=== PATIENT | male | born 1985 | race Two or more races ===

== ENCOUNTER 2019-05-03 16:40 | Inpatient (IN) | payer MEDICAID ==
[~2019-05-03] VITALS: Ht 167.6 cm; Wt 69.4 kg
--- NOTE | 2019-05-03 17:20 | NUR ---
BIBPA FROM SNF, SENT BY PMD DUE TO ABNORMAL ALB BUN ELEVATED 112. PATIENT A/OX1-2, BREATHING EVEN AND UNLABORED, NO SOB NOTED. GTUBE IN PLACED, CANNON CATH IN PLACED. WILL MONITOR.
[2019-05-03] MEDS ORDERED: IV NS 0.9% 1,000 ML BAG IV ONE (17:30)
--- NOTE | 2019-05-03 17:35 | NUR ---
IV LINE ESTABLISHED ON LEFT AC G20.
[2019-05-03] MEDS ORDERED: CRAN3875 GT (17:47)
[2019-05-03] MEDS ORDERED: DOCU100T2 GT (17:47)
[2019-05-03] MEDS ORDERED: MINO2.5T GT (17:47)
[2019-05-03] MEDS ORDERED: LOSA100T31 GT (17:47)
[2019-05-03] MEDS ORDERED: BISA10SU61 RC (17:47)
[2019-05-03] MEDS ORDERED: ACET-73 GT (17:47)
[2019-05-03] MEDS ORDERED: CLON0.3T GT (17:47)
[2019-05-03] MEDS ORDERED: DOXA8TAB79 GT (17:47)
[2019-05-03] MEDS ORDERED: METO-295 GT (17:47)
[2019-05-03] MEDS ORDERED: LEVE500T9 GT (17:47)
[2019-05-03] MEDS ORDERED: NA P133E RC (17:47)
[2019-05-03] MEDS ORDERED: FAMO20TA8 GT (17:47)
[2019-05-03] MEDS ORDERED: ACET500C4 GT (17:47)
[2019-05-03] MEDS ORDERED: HYDR-4076 GT (17:47)
[2019-05-03] MEDS ORDERED: LINA5TAB PO (17:47)
[2019-05-03] MEDS ORDERED: LABE300T2 GT (17:47)
[2019-05-03] MEDS ORDERED: AMLO10TA4 GT (17:47)
[2019-05-03] MEDS ORDERED: IPRA3AMP23 IH ×2 (17:47)
[2019-05-03] MEDS ORDERED: MAGN400O6 GT (17:47)
[2019-05-03] MEDS ORDERED: INSU100I14 SQ (17:47)
[2019-05-03] MEDS ORDERED: INSU100V7 SQ (17:48)
[2019-05-03] MEDS ORDERED: CHLO473M3 MM (17:48)
[2019-05-03] MEDS ORDERED: FURO-145 GT (17:49)
[2019-05-03 17:50] LABS: BASOPHILS % (AUTO) 0.5 % (0.0-2.0); HEMATOCRIT 29 % (39-51); HEMOGLOBIN 9.9 g/dL (13.5-17.5); LYMPHOCYTES # (AUTO) 0.9 /CMM (0.8-4.8); LYMPHOCYTES % (AUTO) 10.9 % (20.0-44.0); MEAN CORPUSCULAR HGB CONC 34 g/dl (31.0-36.0); MEAN CORPUSCULAR VOLUME 84 fL (80-96); MONOCYTES # (AUTO) 0.9 /CMM (0.1-1.30); NEUTROPHILS # (AUTO) 6.6 /CMM (1.8-8.9); NEUTROPHILS % (AUTO) 76.6 % (43.0-81.0); PLATELET COUNT (AUTO) 250 /CMM (150-450); RED BLOOD CELL COUNT(AUTO) 3.45 MIL/uL (4.5-6.0); WHITE BLOOD COUNT (AUTO) 8.7 K/uL (4.3-11.0)
--- NOTE | 2019-05-03 18:08 | NUR ---
CALLED ANNIE NEPHJAVON PAGED NURSE AIDE [employer] [place]
[2019-05-03 18:10] LABS: MAGNESIUM 3.5 mg/dL (1.8-2.4)
[2019-05-03 18:13] LABS: ALBUMIN 2.5 g/dL (3.4-5.0); BILIRUBIN,DIRECT 0.1 mg/dL (0.0-0.2); BILIRUBIN,TOTAL 0.4 mg/dL (0.2-1.0); CREATININE 7.2 mg/dL (0.6-1.3); POTASSIUM 5.1 mmol/L (3.5-5.1); TOTAL PROTEIN, SERUM 6.7 g/dL (6.4-8.2)
--- NOTE | 2019-05-03 18:19 | NUR ---
CALLED VIP SRAVANI DUTTON PAGED
--- NOTE | 2019-05-03 18:29 | NUR ---
TELE 319
--- NOTE | 2019-05-03 19:36 | NUR ---
PATIENT ENDORSED TO AUGIE FISCHER FOR SALLY.
--- NOTE | 2019-05-03 19:50 | NUR ---
GAVE REPORT TO KIMBERLI FISCHER FOR SALLY
--- NOTE | 2019-05-03 20:13 | NUR ---
PT BEING WHEELED TO 319 WITH EMT AT BEDSIDE. ACLS PROTOCOL
--- NOTE | 2019-05-03 20:15 | NUR ---
PRESSURE SUPERVISOR NOTE RECEIVED PT. PT STABLE RESTING IN BED. NO S/S OF RESP DISTRESS/SOB, PT W/ TRACH, O2 SAT WNL W/OUT O2 SUPPORT. DR. DUTTON NOTIFIED OF NEW ADM, ORDERS RECEIVED AND PLACED IN CHART VIA [employer]. TELE MONITOR PLACED, PT CURRENTLY SR 85-[address], PATENT, 300 ML OF OUTPUT IN BAG UPON RECEIPT OF PT. PT IS A/OX2. PT IS VERBAL, WITH PERIODS OF CONFUSION/USE OF INAPPROPRIATE/INCOMPREHENSIBLE WORDS. IV FLUIDS OF NS ORDERED WITH INFUSION RATE OF 75CC/HR PER MD ORDER THROUGH 20G LFA IV ACCESS. POC DISCUSSED WITH PT, HOWEVER FURTHER REINFORCEMENT IS NEEDED. SAFETY MEASURES IN PLACE, CALL LIGHT IN REACH. WILL CONT TO MONITOR.
[2019-05-03 20:25] VITALS: BP 127/62
[2019-05-03] MEDS ORDERED: Medication Not On Formulary EA (Acetaminophen 650 MG) GT PRN (22:00)
[2019-05-03] MEDS ORDERED: BISACODYL SUPP (10 MG) 10 MG/SUPP.RECT SUPP.RECT RC PRN (22:00)
[2019-05-03] MEDS ORDERED: NA PHOS,M-B/NA PHOS,DI-BA 1 EA ENEMA RC PRN (22:00)
[2019-05-03] MEDS ORDERED: MAGNESIUM HYDROXIDE 30 ML UDC GT PRN (22:00)
[2019-05-03] MEDS ORDERED: IV NS 0.9% 1,000 ML BAG IV PRN (23:30)
[2019-05-04] VITALS: BP 130/66
[2019-05-04 00:01] VITALS: BP 127/62
[2019-05-04] MEDS ORDERED: ACETAMINOPHEN 650 MG/20.3 ML UDC GT PRN (00:30)
[2019-05-04] MEDS ORDERED: DEXTROSE 50%-WATER 50 ML DISP.SYRIN IV PRN (01:30)
[2019-05-04 04:00] VITALS: BP 143/67
[2019-05-04] MEDS: LEVETIRACETAM SOL (5 ML) 100 MG/ML UDC GT SCH ×3 (04:51→21:08)
[2019-05-04] MEDS: METOCLOPRAMIDE HCL 10 MG TABLET GT SCH ×3 (04:53→21:09)
[2019-05-04] MEDS ORDERED: CLONIDINE HCL 0.1 MG TABLET GT SCH (05:00)
[2019-05-04] MEDS ORDERED: Medication Not On Formulary EA (Levetiracetam (Keppra) 500 MG) GT SCH (05:00)
[2019-05-04] MEDS: hydrALAZINE HCL 25 MG TABLET GT SCH ×3 (05:15→21:09)
--- NOTE | 2019-05-04 06:57 | NUR ---
rn closing note PT STABLE. NO S/S OF RESP DISTRESS SOB. ALL PT NEEDS ANTICIPATED AND MET. SAFETY MEASURES IN PLACE. CALL LIGHT IN REACH. WILL ENDORSE TO DAY SHIFT FOR SALLY.
[2019-05-04 08:00] VITALS: BP 137/64
[2019-05-04] MEDS ORDERED: IPRATROPIUM NEB FS 0.5 MG/2.5 ML AMPUL.NEB NEB PRN (08:00)
--- NOTE | 2019-05-04 08:00 | NUR ---
RN NOTES RECEIVED PATIENT ON THE BED BEDBOUND A/O X1, REDIRECTABLE. PATIENT ON TRACHEA UNCUFFED, TRACHEA SIZE #7 BREATHING SELF.PATIENT NPO. BS-149 MG/DL. PATIENT HAS A RIGHT SIDE WEAKNESS , EDEMA RIGHT ARM, AND RIGHT LEG, KEEP ELEVATED USING PILLOWS. PATIENT HAS A F/C INTACT DRAINING LIGHT YELLOW OUTPUT. INFUSING NS AT 75 ML/HR, ON LEFT FA INTACT,. PATIENT HAS A G-TUBE, PLACEMENT AND RESIDUAL CHECKED. MEDICATION ADMINISTERED VIA G-TUBE. ASSIST TURN AND REPOSTION Q 2 HR. CALL LIGHT WITHIN TO REACH, SAFETY PRECAUTION MAINTAINED ALL THE TIME.
[2019-05-04] MEDS: BLOOD SUGAR DIAGNOSTIC 1 EACH STRIP IN SCH ×4 (08:59→21:56)
[2019-05-04] MEDS ORDERED: Medication Not On Formulary EA (Docusate Sodium 100 MG) GT SCH (09:00)
[2019-05-04] MEDS: CHLORHEXIDINE GLUCONATE 15 ML UDC MM SCH (09:11)
[2019-05-04] MEDS: FAMOTIDINE (20 MG) 20 MG TABLET GT SCH (09:11)
[2019-05-04] MEDS: DOCUSATE SODIUM LIQ 100 MG/10 ML UDC GT SCH ×2 (09:11→21:08)
[2019-05-04] MEDS: LINAGLIPTIN 5 MG TABLET PO SCH (09:12)
[2019-05-04] MEDS: AMLODIPINE BESYLATE 10 MG TABLET GT SCH (09:12)
[2019-05-04] MEDS: IV NS 0.9% 1,000 ML IV PRN ×2 (09:13→12:00)
[2019-05-04] MEDS: ALBUTEROL FS 2.5 MG/0.5 ML VIAL.NEB NEB SCH ×3 (09:45→19:25)
[2019-05-04] MEDS: IPRATROPIUM NEB FS 0.5 MG/2.5 ML AMPUL.NEB NEB SCH ×3 (09:45→19:25)
[2019-05-04 10:00] LABS: BASOPHILS % (AUTO) 0.5 % (0.0-2.0); EOSINOPHILS % (AUTO) 1.5 % (0.0-6.0); HEMATOCRIT 27 % (39-51); HEMOGLOBIN 9.3 g/dL (13.5-17.5); LYMPHOCYTES % (AUTO) 10.2 % (20.0-44.0); MEAN CORPUSCULAR HGB CONC 34 g/dl (31.0-36.0); MEAN CORPUSCULAR VOLUME 83 fL (80-96); MONOCYTES % (AUTO) 10.1 % (2.0-12.0); NEUTROPHILS # (AUTO) 7.9 /CMM (1.8-8.9); NEUTROPHILS % (AUTO) 77.7 % (43.0-81.0); PLATELET COUNT (AUTO) 239 /CMM (150-450); RED BLOOD CELL COUNT(AUTO) 3.28 MIL/uL (4.5-6.0); WHITE BLOOD COUNT (AUTO) 10.1 K/uL (4.3-11.0)
--- NOTE | 2019-05-04 10:00 | NUR ---
RN NOTES SEEN PATIENT BT ST, PATIENT GOING TO HAVE A SWALLOW WITH VIDEO TOMORROW. SEEN PATIENT BY Dr VELEZ, PATIENT STILL NPO, INCREASED IV INFUSING ON 125 MG/HR. ASSIST TURN AND REPOSTION Q 2 HR. NEEDS ATTENDED AND ANTICIPATED, CALL LIGHT WITHIN TO REACH, CONTINUED MONITORING.
[2019-05-04 10:13] LABS: CREATININE 6.9 mg/dL (0.6-1.3); POTASSIUM 4.5 mmol/L (3.5-5.1)
--- NOTE | 2019-05-04 12:00 | NUR ---
RN NOTES BS-147 MG/DL, NO COVERAGE GIVEN, ADMINISTERED SCHEDULED MEDICATION VIA G-TUBE, CONTINUED MONITORING.
[2019-05-04] MEDS ORDERED: ALBUTEROL FS 2.5 MG/0.5 ML VIAL.NEB NEB PRN (13:30)
[2019-05-04 16:00] VITALS: BP_SYST 137; BP_SYST 149; BP_DIAS 64; BP_DIAS 73
--- NOTE | 2019-05-04 17:00 | NUR ---
RN NOTES BS-139 MG/DL, ADMINISTERED SCHEDULED MEDICATION, PATIENT HAS ANO ACUTE RESPIRATORY DISTRESS, V/S STABLE, ASSISTTURN AND REPOSTION Q 2 HR.
--- NOTE | 2019-05-04 18:30 | NUR ---
RN NOTES PATIENT STABLE, NO ACUTE RESPIRATORY DISTRESS, V/S STABLE. PATIENT STILL NPO, CALL LIGHT WITHIN TO REACH. ENDORSED ONCOMING NURSE FOR PLAN OF CARE.
[2019-05-04 20:00] VITALS: BP 148/64
--- NOTE | 2019-05-04 20:00 | NUR ---
MS CARLOS INITIAL NOTES SEEN PT IN BED WATCHING TV AT THIS, ALERT ORIENTED ASKING FOR FOOD , SPOKE TO HIM THAT HE.S NPO AT THIS TIME EXCEPT HIS MEDICATION BUT HE'S ON IVF. HE'S GOING FOR SWALLOW EVALUATION TOMORROW TO FIND OUT IF HE ABLE TO SWALLOW. PT STATED "OK". HE'S STILL HAVE TRACH PORTEX #7 THAT IS UNCUFFED. BREATHING EVEN AND UNLABORED, NOT IN ANY ACUTE DISTRESS NOTED. IVF NS AT 125 INFUSING AT THIS TIME ON HIS LEFT FOREARM. KEPT HIM WARM AND COMFORTABLE AT ALL TIMES. PLACE CALL LIGHT AT REACH. WILL CONTINUE MONITORING.
[2019-05-04] MEDS ORDERED: CLONIDINE HCL 0.1 MG TABLET ONE (21:52)
[2019-05-04] MEDS: CLONIDINE HCL 0.1 MG TABLET GT SCH (21:56)
--- NOTE | 2019-05-04 22:00 | NUR ---
ms transmission systems operator notes routine meds given and blood sugar checked done 120, no insulin coverages at this time. no signs of hypo glycemia noted. pt still with IVF NS at 125 ml/hr infusing. will continue monitoring. kept him warm and comfortable at all times. place call light at reach.
[2019-05-05] MEDS: ALBUTEROL FS 2.5 MG/0.5 ML VIAL.NEB NEB SCH ×4 (01:57→19:36)
[2019-05-05] MEDS: IPRATROPIUM NEB FS 0.5 MG/2.5 ML AMPUL.NEB NEB SCH ×4 (01:57→19:36)
[2019-05-05] MEDS: IV NS 0.9% 1,000 ML IV PRN ×3 (02:10→18:10)
--- NOTE | 2019-05-05 02:21 | NUR ---
ms anh notes pt resting comfortably in bed without any acute distress noted. Respiratory just done giving breathing tx. kept him comfortable at all times. will continue monitoring.
[2019-05-05] MEDS: LEVETIRACETAM SOL (5 ML) 100 MG/ML UDC GT SCH ×3 (06:05→20:57)
[2019-05-05] MEDS: hydrALAZINE HCL 25 MG TABLET GT SCH ×3 (06:06→20:57)
[2019-05-05] MEDS: METOCLOPRAMIDE HCL 10 MG TABLET GT SCH ×3 (06:06→20:57)
[2019-05-05] MEDS ORDERED: CLONIDINE HCL 0.1 MG TABLET ONE (06:22)
[2019-05-05] MEDS: BLOOD SUGAR DIAGNOSTIC 1 EACH STRIP IN SCH ×4 (06:30→21:59)
[2019-05-05] MEDS: CLONIDINE HCL 0.1 MG TABLET GT SCH ×3 (06:30→20:57)
--- NOTE | 2019-05-05 06:45 | NUR ---
ms anh notes routine resting comfortably in bed without any acute distress noted. routine meds given as ordered lemuel g-tube. no aspiration noted. blood sugar checked done 152. no insulin given at this time. pt still NPO . no signs of hyper glycemia noted. morning care done . kept him warm and comfortable at all times. will continue monitoring. place call light at reach.
--- NOTE | 2019-05-05 07:39 | NUR ---
ms central supply technician supervisor closing notes pt resting comfortably in bed without any acute distress noted. stable lemuel the night and slept well. respiration even and non-labored. all due meds given and all needs met. kept her warm and comfortable at all times. place call light at reach. endorse to am nurse Bennett for continuity of care.
[2019-05-05 07:57] LABS: BASOPHILS # (AUTO) 0.1 /CMM (0.0-0.2); BASOPHILS % (AUTO) 0.8 % (0.0-2.0); EOSINOPHILS % (AUTO) 1.8 % (0.0-6.0); HEMATOCRIT 26 % (39-51); LYMPHOCYTES # (AUTO) 0.9 /CMM (0.8-4.8); LYMPHOCYTES % (AUTO) 10.6 % (20.0-44.0); MEAN CORPUSCULAR HGB CONC 35 g/dl (31.0-36.0); MEAN CORPUSCULAR VOLUME 84 fL (80-96); MONOCYTES # (AUTO) 0.9 /CMM (0.1-1.30); MONOCYTES % (AUTO) 10.7 % (2.0-12.0); NEUTROPHILS # (AUTO) 6.7 /CMM (1.8-8.9); NEUTROPHILS % (AUTO) 76.1 % (43.0-81.0); PLATELET COUNT (AUTO) 260 /CMM (150-450); RED BLOOD CELL COUNT(AUTO) 3.12 MIL/uL (4.5-6.0); WHITE BLOOD COUNT (AUTO) 8.8 K/uL (4.3-11.0)
[2019-05-05 08:00] VITALS: BP 149/74
--- NOTE | 2019-05-05 08:00 | NUR ---
RN NOTES RECEIVED PATIENT IN THE BED SLEEPING AROUES WHEN CALLED NAME OR TOUCHED. NO ACUTE RESPIRATORY DISTRESS, NO SOB, UNLABORED. PATIENT HAS A TRACHEA UNCUFFED, ABLE TO BREATH SELF. G-TUBE INTACT RESIDUAL 50CC, ALSO CHECKED FOR PLACEMENT. F/C DRAIN FREELY YELLOW OUTPUT, V/S STABLE. ADMINISTERED SCHEDULED MEDICATION VIA G-TUBE. INFUSING NS AT 125 ML/HR ON LEFT FA INTACT. EDEMA BLE , AND RIGHT ARM ELEVATED USING PILLOWS, ASSIST PATIENT TURN AND REPOSTION Q 2 HR. CALL LIGHT WITHIN TO REACH, SAFETY PRECAUTION MAINTAINED ALL THE TIME.
[2019-05-05 08:11] LABS: CREATININE 5.3 mg/dL (0.6-1.3); PHOSPHORUS 5.6 mg/dL (2.5-4.9); POTASSIUM 4.2 mmol/L (3.5-5.1)
[2019-05-05] MEDS: CHLORHEXIDINE GLUCONATE 15 ML UDC MM SCH (09:10)
[2019-05-05] MEDS: DOCUSATE SODIUM LIQ 100 MG/10 ML UDC GT SCH ×2 (09:10→20:56)
[2019-05-05] MEDS: FAMOTIDINE (20 MG) 20 MG TABLET GT SCH (09:11)
[2019-05-05] MEDS: LINAGLIPTIN 5 MG TABLET PO SCH (09:11)
[2019-05-05] MEDS: AMLODIPINE BESYLATE 10 MG TABLET GT SCH (09:11)
--- NOTE | 2019-05-05 10:15 | NUR ---
RN NOTES PATIENT CAPACITOR INSPECTOR FOR AT THIS TIME FOR VIDEO SWALLOW TEST. PATIENT AWAKE STABLE, EDUCATED PATIENT FOR PROCEDURE.
[2019-05-05] MEDS ORDERED: BARIUM SULFATE 148 GM SUSP.RECON PO ONE (11:38)
[2019-05-05] MEDS ORDERED: BARIUM SULFATE 240 ML ORAL.SUSP PO ONE (11:38)
--- NOTE | 2019-05-05 13:00 | NUR ---
RN NOTES PATIENT EAT LUNCH BY ASSIST OF ABSEILING INSTRUCTOR 25%. PATIENT TOLERATED FOOD WELL, NO ASPIRATION PRECAUTION , KEEP HOB ELEVATED, ADMINISTERED SCHEDULED MEDICATION VIA G-TUBE. ASSIST TURN AND REPOSTION Q 2 HR.
[2019-05-05] MEDS: INSULIN REGULAR, HUMAN 100 UNIT/ML 3 ML VIAL SQ PRN ×3 (15:08→22:16)
[2019-05-05 16:00] VITALS: BP 151/71
--- NOTE | 2019-05-05 17:00 | NUR ---
RN NOTES BS-202 MG/DL COVERAGE GIVEN, PATIENT EAT DINNER 35 %, STABLE, REFUSED PAIN, INFUSING NS AT 125 MG/ML ON LEFT AC AREA INTACT, ASSIST TURN AND REPOSTION Q 2 HR. CONTINUED MONITORING.
--- NOTE | 2019-05-05 18:30 | NUR ---
RN NOTES PATIENT STABLE, NO ACUTE RESPIRATORY DISTRESS. CALL LIGHT WITHIN TO REACH. ENDORSED ONCOMING NURSE FOLLOW PLAN OF CARE.
--- NOTE | 2019-05-05 19:51 | NUR ---
ms anh initial notes received report from am nurse and seen pt in bed resting comfortably in bed without any acute distress noted. respiration even and non-labored, trach portex # 7 uncuffed. in room air at this time. pt denies any pain or any discomfort. Still with IVF of NS at 125 ml/hr infusing at this time. kept him warm and comfortable at all time. per am nurse g-tube feeding will start at 2200 then off at 0600 am as ordered. pt is aware. place call light at reach. will continue monitoring.
[2019-05-05 20:00] VITALS: BP 142/80
[2019-05-05] MEDS: NEPRO 1,000 ML BOTTLE GT PRN (21:58)
[2019-05-05] MEDS: TAMSULOSIN 0.4 MG CAP.SR.24H PO SCH (21:59)
--- NOTE | 2019-05-05 22:33 | NUR ---
ms anh notes routine meds given and blood sugar checked done 132, 2 units of insulin given lemuel sq as ordered. G-tube feeding started Nephro at 20ml/hr as ordered. kept him warm and comfortable at all times. will continue monitoring.
--- NOTE | 2019-05-06 | NUR ---
ms cabinetmaker apprentice notes pt asleep at this time. no signs of any acute distress noted. pt tolerated g-tube feeding well, no aspiration noted.
[2019-05-06] MEDS: IPRATROPIUM NEB FS 0.5 MG/2.5 ML AMPUL.NEB NEB SCH ×4 (02:19→20:17)
[2019-05-06] MEDS: ALBUTEROL FS 2.5 MG/0.5 ML VIAL.NEB NEB SCH ×4 (02:19→20:17)
--- NOTE | 2019-05-06 03:00 | NUR ---
supervisor loading notes pt asleep. no distress noted.
[2019-05-06] MEDS: LEVETIRACETAM SOL (5 ML) 100 MG/ML UDC GT SCH ×3 (05:19→20:58)
[2019-05-06] MEDS: METOCLOPRAMIDE HCL 10 MG TABLET GT SCH ×3 (05:20→20:57)
[2019-05-06] MEDS: hydrALAZINE HCL 25 MG TABLET GT SCH ×3 (05:20→20:57)
[2019-05-06] MEDS: CLONIDINE HCL 0.1 MG TABLET GT SCH ×2 (05:20→20:58)
[2019-05-06] MEDS: IV NS 0.9% 1,000 ML IV PRN ×2 (05:35→21:24)
[2019-05-06] MEDS: INSULIN REGULAR, HUMAN 100 UNIT/ML 3 ML VIAL SQ PRN ×4 (06:10→21:17)
--- NOTE | 2019-05-06 06:31 | NUR ---
ms anh notes bed bath rendered with the helped of TWISTING DEPARTMENT END FINDER then blood sugar checked done 142 , no signs of any hypo/hyperglycemia . 2 units of insulin given lemuel SQ as ordered. g-tube feeding hold for now as ordered. ivf NS at 125ml/hr infusing.
--- NOTE | 2019-05-06 07:02 | NUR ---
ms interior decorator closing notes pt awake and alert watching tv at this time, stable lemuel the night and slept well. all due meds given and all needs met. no signs of any acute distress noted at this time. alberts to gravity, g-tube feeding hold for now patent and intact. IVF NS at 125ml/hr still infusing. kept him warm and comfortable at all times. place call light at reach, will endorse to am nurse for continuity of care. place call light at reach.
[2019-05-06 07:27] LABS: BASOPHILS # (AUTO) 0.1 /CMM (0.0-0.2); BASOPHILS % (AUTO) 0.8 % (0.0-2.0); EOSINOPHILS % (AUTO) 2.6 % (0.0-6.0); HEMATOCRIT 30 % (39-51); LYMPHOCYTES # (AUTO) 1.1 /CMM (0.8-4.8); LYMPHOCYTES % (AUTO) 10.8 % (20.0-44.0); MEAN CORPUSCULAR HGB CONC 33 g/dl (31.0-36.0); MEAN CORPUSCULAR VOLUME 85 fL (80-96); MONOCYTES # (AUTO) 0.9 /CMM (0.1-1.30); NEUTROPHILS # (AUTO) 7.8 /CMM (1.8-8.9); NEUTROPHILS % (AUTO) 76.8 % (43.0-81.0); PLATELET COUNT (AUTO) 298 /CMM (150-450); RED BLOOD CELL COUNT(AUTO) 3.53 MIL/uL (4.5-6.0); WHITE BLOOD COUNT (AUTO) 10.1 K/uL (4.3-11.0)
[2019-05-06] MEDS: BLOOD SUGAR DIAGNOSTIC 1 EACH STRIP IN SCH ×4 (07:30→21:04)
--- NOTE | 2019-05-06 07:44 | NUR ---
m/s manager project: notes blood sugar taken earlier this morning.
[2019-05-06 08:00] VITALS: BP 162/80
--- NOTE | 2019-05-06 08:00 | NUR ---
m/s general scrap worker: notes resting comfortable. g-tube remains clamped. will continue to monitor. hob elevated.
[2019-05-06 08:01] LABS: CALCIUM, SERUM 9.2 mg/dL (8.5-10.1); CREATININE 4.1 mg/dL (0.6-1.3); PHOSPHORUS 5.7 mg/dL (2.5-4.9); POTASSIUM 4.2 mmol/L (3.5-5.1)
[2019-05-06] MEDS: CHLORHEXIDINE GLUCONATE 15 ML UDC MM SCH (08:09)
[2019-05-06] MEDS: AMLODIPINE BESYLATE 10 MG TABLET GT SCH (08:09)
[2019-05-06] MEDS: DOCUSATE SODIUM LIQ 100 MG/10 ML UDC GT SCH ×2 (08:09→20:58)
[2019-05-06] MEDS: LINAGLIPTIN 5 MG TABLET PO SCH (08:10)
[2019-05-06] MEDS: FAMOTIDINE (20 MG) 20 MG TABLET GT SCH (08:10)
--- NOTE | 2019-05-06 10:30 | NUR ---
m/s rn women services: notes aunt visiting at this time. pt resting comfortable in bed with no distress noted. tracheostomy secured at midline with passymuir on. g-tube clamped at this time. will continue to monitor.
--- NOTE | 2019-05-06 13:50 | NUR ---
m/s spool sorter: notes called pharmacist, spoke to bhanu re: clonidine 1mg dose and will review meds as stated. cn made aware.
--- NOTE | 2019-05-06 16:00 | NUR ---
m/s sap developer: notes pm care and incontinent care rendered by cyber incident responder. turned and repositioned. kept comfortable. hob elevated. will continue to monitor. aunt remains at bedside.
--- NOTE | 2019-05-06 18:30 | NUR ---
m/s light rail signal technician: notes in bed with eyes close. no s/s of distress noted. g-tube remains clamped. appetite is good. needs attended. will continue to monitor.
--- NOTE | 2019-05-06 19:00 | NUR ---
m/s community nurse: notes report given to gadiel (rn) for continuity of care.
--- NOTE | 2019-05-06 19:35 | NUR ---
MS/RN OPENING NOTES RECEIVED PATIENT IN BED, AWAKE,ABLE TO RESPOND WITH A NOD, RESPIRATIONS EVEN AND UNLABORED. SKIN WARM TO TOUCH, ON GTUBE FOR SUPPLEMENTAL DIET WITH GTUBE TO START AT 2200 NEPHRO AND END AT 0600, WITH PUREED DIET AND NECTAR, GTUBE SITE PATENT, TRAECH SITE, KEEP DRESSING INTACT AND DRY. RIGHT WIRT GAUGE 22 PATENT, WILL MONITOR, PATIENT REQUIRE EXTENSIVE ASSISTANCE.BED LOCKED CALL LIGHTS WITHIN REACH. WILL MONITOR.
[2019-05-06 20:00] VITALS: BP 160/84
[2019-05-06] MEDS ORDERED: CLONIDINE HCL 0.1 MG TABLET GT SCH (21:00)
[2019-05-06] MEDS: TAMSULOSIN 0.4 MG CAP.SR.24H PO SCH (21:15)
[2019-05-06] MEDS: NEPRO 1,000 ML BOTTLE GT PRN (21:24)
[2019-05-07] MEDS: ALBUTEROL FS 2.5 MG/0.5 ML VIAL.NEB NEB SCH ×4 (02:06→19:53)
[2019-05-07] MEDS: IPRATROPIUM NEB FS 0.5 MG/2.5 ML AMPUL.NEB NEB SCH ×4 (02:06→19:53)
[2019-05-07] MEDS: METOCLOPRAMIDE HCL 10 MG TABLET GT SCH ×3 (04:35→20:39)
[2019-05-07] MEDS: CLONIDINE HCL 0.1 MG TABLET GT SCH ×3 (04:36→20:40)
[2019-05-07] MEDS: LEVETIRACETAM SOL (5 ML) 100 MG/ML UDC GT SCH ×3 (04:36→20:38)
[2019-05-07] MEDS: hydrALAZINE HCL 25 MG TABLET GT SCH ×3 (04:36→20:39)
[2019-05-07] MEDS: IV NS 0.9% 1,000 ML IV PRN (04:50)
[2019-05-07] MEDS: BLOOD SUGAR DIAGNOSTIC 1 EACH STRIP IN SCH ×4 (06:27→22:09)
[2019-05-07] MEDS: INSULIN REGULAR, HUMAN 100 UNIT/ML 3 ML VIAL SQ PRN ×4 (06:57→22:12)
--- NOTE | 2019-05-07 07:16 | NUR ---
319-1 MS/RN NOTES PATIENT IN BED HOB ELEVATE, AWAKE, AND SLEPT INTERMITENLTY NO GUARDING OR GRIMACE OBSERVED. KEPT COMFORTABLE. GTUBE PATENT, IV SITE WITH NO S/S OF INFILTRATION WITH CANNON DRAINING URINE. REQUIRE EXTENSIVE ASSISTANCE. FOR ALL ADLS. BED LOCKED. MONITORED FOR ANY CHANGES. WILL ENDORSE TO AM RN FOR SALLY.
--- NOTE | 2019-05-07 07:43 | NUR ---
RN MS OPENING NOTES Received patient on room air, no sob noted. Patient is on a trach at this time, plugged. Left wrist IV, and alberts. No s/s of pain noted, patient lying down comfortably on his bed. GT feeding off at this time, per noc rn, it is on at 2200 and end at 0600.
[2019-05-07 08:00] VITALS: BP 168/75
[2019-05-07] MEDS: LINAGLIPTIN 5 MG TABLET PO SCH (08:03)
[2019-05-07] MEDS: CHLORHEXIDINE GLUCONATE 15 ML UDC MM SCH (08:03)
[2019-05-07] MEDS: AMLODIPINE BESYLATE 10 MG TABLET GT SCH (08:03)
[2019-05-07] MEDS: FAMOTIDINE (20 MG) 20 MG TABLET GT SCH (08:03)
[2019-05-07] MEDS: DOCUSATE SODIUM LIQ 100 MG/10 ML UDC GT SCH ×2 (08:03→20:38)
--- NOTE | 2019-05-07 13:53 | NUR ---
RN MS NOTES MD aware of patients high blood pressure the past few days. No new order at this time.
[2019-05-07 15:59] LABS: BASOPHILS # (AUTO) 0.1 /CMM (0.0-0.2); BASOPHILS % (AUTO) 0.5 % (0.0-2.0); EOSINOPHILS % (AUTO) 2.1 % (0.0-6.0); HEMATOCRIT 28 % (39-51); HEMOGLOBIN 9.6 g/dL (13.5-17.5); LYMPHOCYTES # (AUTO) 1.1 /CMM (0.8-4.8); LYMPHOCYTES % (AUTO) 10.7 % (20.0-44.0); MEAN CORPUSCULAR HGB CONC 35 g/dl (31.0-36.0); MEAN CORPUSCULAR VOLUME 84 fL (80-96); MONOCYTES # (AUTO) 0.9 /CMM (0.1-1.30); MONOCYTES % (AUTO) 8.7 % (2.0-12.0); NEUTROPHILS # (AUTO) 7.9 /CMM (1.8-8.9); PLATELET COUNT (AUTO) 323 /CMM (150-450); RED BLOOD CELL COUNT(AUTO) 3.28 MIL/uL (4.5-6.0); WHITE BLOOD COUNT (AUTO) 10.1 K/uL (4.3-11.0)
[2019-05-07 16:00] VITALS: BP 163/90
[2019-05-07 16:17] LABS: ALBUMIN 2.4 g/dL (3.4-5.0); BILIRUBIN,TOTAL 0.5 mg/dL (0.2-1.0); CALCIUM, SERUM 9.2 mg/dL (8.5-10.1); CREATININE 2.7 mg/dL (0.6-1.3); MAGNESIUM 2.4 mg/dL (1.8-2.4); PHOSPHORUS 4.9 mg/dL (2.5-4.9); POTASSIUM 3.5 mmol/L (3.5-5.1); TOTAL PROTEIN, SERUM 6.9 g/dL (6.4-8.2)
--- NOTE | 2019-05-07 19:01 | NUR ---
RN MS CLOSING NOTES Patient remains on room air, no sob noted. Trach in place, plugged. patient shows no s/s of pain. Herrera remains and is draining well. IVF on and is infusing well at 125 mL/hour. Medications given via GT, no clogging. Bed at the lowest setting, call light within reach. Patient remains with right side weakness.
[2019-05-07 20:00] VITALS: BP 193/93
[2019-05-07] MEDS: TAMSULOSIN 0.4 MG CAP.SR.24H PO SCH (20:41)
[2019-05-07] MEDS: hydrALAZINE HCL 25 MG TABLET PO SCH (20:44)
[2019-05-07] MEDS: NEPRO 1,000 ML BOTTLE GT PRN (23:00)
[2019-05-08 00:23] VITALS: BP 176/75
[2019-05-08] MEDS: IV NS 0.9% 1,000 ML IV PRN ×3 (00:25→14:26)
[2019-05-08] MEDS: ALBUTEROL FS 2.5 MG/0.5 ML VIAL.NEB NEB SCH ×4 (01:57→19:52)
[2019-05-08] MEDS: IPRATROPIUM NEB FS 0.5 MG/2.5 ML AMPUL.NEB NEB SCH ×4 (01:57→19:52)
[2019-05-08] MEDS: hydrALAZINE HCL 25 MG TABLET PO SCH (05:00)
[2019-05-08] MEDS: LEVETIRACETAM SOL (5 ML) 100 MG/ML UDC GT SCH ×3 (05:27→21:06)
[2019-05-08] MEDS: CLONIDINE HCL 0.1 MG TABLET GT SCH ×3 (05:27→21:07)
[2019-05-08] MEDS: METOCLOPRAMIDE HCL 10 MG TABLET GT SCH ×3 (05:27→21:07)
[2019-05-08] MEDS: hydrALAZINE HCL 25 MG TABLET GT SCH ×3 (05:28→21:07)
[2019-05-08 05:36] VITALS: BP 191/81
[2019-05-08] MEDS: BLOOD SUGAR DIAGNOSTIC 1 EACH STRIP IN SCH ×4 (06:34→21:56)
[2019-05-08] MEDS: INSULIN REGULAR, HUMAN 100 UNIT/ML 3 ML VIAL SQ PRN ×3 (06:46→21:59)
[2019-05-08 06:50] LABS: BASOPHILS # (AUTO) 0.1 /CMM (0.0-0.2); BASOPHILS % (AUTO) 0.5 % (0.0-2.0); EOSINOPHILS % (AUTO) 2.8 % (0.0-6.0); HEMATOCRIT 28 % (39-51); HEMOGLOBIN 9.5 g/dL (13.5-17.5); LYMPHOCYTES % (AUTO) 9.9 % (20.0-44.0); MEAN CORPUSCULAR HGB CONC 34 g/dl (31.0-36.0); MEAN CORPUSCULAR VOLUME 85 fL (80-96); MONOCYTES # (AUTO) 0.8 /CMM (0.1-1.30); MONOCYTES % (AUTO) 8.1 % (2.0-12.0); NEUTROPHILS # (AUTO) 8.2 /CMM (1.8-8.9); NEUTROPHILS % (AUTO) 78.7 % (43.0-81.0); PLATELET COUNT (AUTO) 308 /CMM (150-450); RED BLOOD CELL COUNT(AUTO) 3.27 MIL/uL (4.5-6.0); WHITE BLOOD COUNT (AUTO) 10.4 K/uL (4.3-11.0)
[2019-05-08] MEDS: AMLODIPINE BESYLATE 10 MG TABLET GT SCH (07:00)
--- NOTE | 2019-05-08 07:00 | NUR ---
pt alert, awake, denies any pain overnight, tolerating gt feeding to goal @ 45cc/hr ,no residual.x3 large bm overnight, alberts draining well, trache collar capped. bp elevated max sbp 200 with bp meds given still not effective, will notify md, endorsed next shift , am bp dose given early. endorsed to next shift to notify md.
[2019-05-08 07:05] VITALS: BP 200/88
[2019-05-08 07:09] LABS: ALBUMIN 2.4 g/dL (3.4-5.0); BILIRUBIN,TOTAL 0.6 mg/dL (0.2-1.0); CALCIUM, SERUM 9.2 mg/dL (8.5-10.1); CREATININE 2.5 mg/dL (0.6-1.3); MAGNESIUM 2.1 mg/dL (1.8-2.4); PHOSPHORUS 4.3 mg/dL (2.5-4.9); TOTAL PROTEIN, SERUM 6.7 g/dL (6.4-8.2)
[2019-05-08 08:00] VITALS: BP 192/89
[2019-05-08] MEDS: DOCUSATE SODIUM LIQ 100 MG/10 ML UDC GT SCH ×2 (09:00→21:06)
[2019-05-08] MEDS: CHLORHEXIDINE GLUCONATE 15 ML UDC MM SCH (09:00)
[2019-05-08] MEDS: FAMOTIDINE (20 MG) 20 MG TABLET GT SCH (09:00)
[2019-05-08] MEDS: LINAGLIPTIN 5 MG TABLET PO SCH (09:00)
[2019-05-08] MEDS ORDERED: hydrALAZINE HCL 25 MG TABLET PO SCH (13:00)
[2019-05-08 16:00] VITALS: BP 189/78
[2019-05-08] MEDS ORDERED: ISOSORBIDE MONONITRATE (30MG) 30 MG TAB.SR.24H PO SCH (16:00)
[2019-05-08] MEDS: POTASSIUM CL. PREMIX PERIPHER. 50 ML IV SCH ×2 (18:27→18:33)
[2019-05-08 20:00] VITALS: BP 194/92
[2019-05-08] MEDS: TAMSULOSIN 0.4 MG CAP.SR.24H PO SCH (21:10)
[2019-05-08] MEDS: DOXAZOSIN MESYLATE (1 MG) 1 MG TABLET PO SCH (21:10)
[2019-05-08] MEDS: NEPRO 1,000 ML BOTTLE GT PRN (21:56)
[2019-05-09] MEDS: ALBUTEROL FS 2.5 MG/0.5 ML VIAL.NEB NEB SCH ×4 (01:19→19:22)
[2019-05-09] MEDS: IPRATROPIUM NEB FS 0.5 MG/2.5 ML AMPUL.NEB NEB SCH ×4 (01:19→19:22)
[2019-05-09] MEDS: METOCLOPRAMIDE HCL 10 MG TABLET GT SCH ×3 (05:01→20:45)
[2019-05-09] MEDS: LEVETIRACETAM SOL (5 ML) 100 MG/ML UDC GT SCH ×3 (05:01→20:45)
[2019-05-09] MEDS: CLONIDINE HCL 0.1 MG TABLET GT SCH ×3 (05:18→20:44)
[2019-05-09] MEDS: hydrALAZINE HCL 25 MG TABLET GT SCH ×3 (05:18→20:44)
--- NOTE | 2019-05-09 06:00 | NUR ---
pt continue to have elevated bp despite new meds given. heplock and gt feeding continued tolerating well, no residual. repositioned q2hrs, hhn as ordered, no acute distress, trache collar capped. no significant changes, had x2 large bm. kept clean and dry.
[2019-05-09] MEDS: BLOOD SUGAR DIAGNOSTIC 1 EACH STRIP IN SCH ×4 (06:43→21:28)
[2019-05-09] MEDS: INSULIN REGULAR, HUMAN 100 UNIT/ML 3 ML VIAL SQ PRN ×4 (06:46→21:25)
[2019-05-09 08:28] VITALS: BP 166/89
[2019-05-09 08:39] LABS: BASOPHILS # (AUTO) 0.1 /CMM (0.0-0.2); BASOPHILS % (AUTO) 0.8 % (0.0-2.0); EOSINOPHILS % (AUTO) 1.7 % (0.0-6.0); HEMATOCRIT 29 % (39-51); HEMOGLOBIN 9.8 g/dL (13.5-17.5); LYMPHOCYTES # (AUTO) 1.4 /CMM (0.8-4.8); LYMPHOCYTES % (AUTO) 7.5 % (20.0-44.0); MEAN CORPUSCULAR HGB CONC 33 g/dl (31.0-36.0); MEAN CORPUSCULAR VOLUME 85 fL (80-96); MONOCYTES # (AUTO) 1.3 /CMM (0.1-1.30); MONOCYTES % (AUTO) 7.2 % (2.0-12.0); NEUTROPHILS # (AUTO) 14.8 /CMM (1.8-8.9); NEUTROPHILS % (AUTO) 82.8 % (43.0-81.0); PLATELET COUNT (AUTO) 309 /CMM (150-450); RED BLOOD CELL COUNT(AUTO) 3.44 MIL/uL (4.5-6.0); WHITE BLOOD COUNT (AUTO) 17.9 K/uL (4.3-11.0)
[2019-05-09 08:41] LABS: THYROID STIMULATING HORMONE 1.943 uIU/mL (0.358-3.74)
[2019-05-09 08:42] LABS: ALBUMIN 2.2 g/dL (3.4-5.0); BILIRUBIN,TOTAL 0.5 mg/dL (0.2-1.0); CALCIUM, SERUM 8.9 mg/dL (8.5-10.1); MAGNESIUM 1.9 mg/dL (1.8-2.4); PHOSPHORUS 3.4 mg/dL (2.5-4.9); TOTAL PROTEIN, SERUM 6.4 g/dL (6.4-8.2)
[2019-05-09] MEDS ORDERED: SPIRONOLACTONE 25 MG TABLET PO SCH (09:00)
[2019-05-09] MEDS ORDERED: SPIRONOLACTONE 25 MG TABLET GT SCH (09:11)
[2019-05-09 09:17] LABS: LYMPHOCYTES % (MANUAL) 13 % (16-48); MONOCYTES % (MANUAL) 7 % (0-11.0); NEUTROPHILS % (MANUAL) 79 (42-76)
[2019-05-09 09:18] LABS: EOSINOPHILS % (MANUAL) 1 % (0-4)
[2019-05-09] MEDS: LINAGLIPTIN 5 MG TABLET PO SCH (10:02)
[2019-05-09] MEDS: FAMOTIDINE (20 MG) 20 MG TABLET GT SCH (10:02)
[2019-05-09] MEDS: ISOSORBIDE MONONITRATE (30MG) 30 MG TAB.SR.24H PO SCH (10:02)
[2019-05-09] MEDS: AMLODIPINE BESYLATE 10 MG TABLET GT SCH (10:03)
[2019-05-09] MEDS: CHLORHEXIDINE GLUCONATE 15 ML UDC MM SCH (10:03)
[2019-05-09] MEDS: DOCUSATE SODIUM LIQ 100 MG/10 ML UDC GT SCH ×2 (10:03→20:45)
[2019-05-09] MEDS: POTASSIUM CL. PREMIX PERIPHER. 50 ML IV SCH ×4 (10:03→22:49)
--- NOTE | 2019-05-09 10:56 | NUR ---
WOUND CARE CONSULT: PT PRESENTS WITH IMMOBILITY AND FECAL INCONTINENCE, HEALED AREA TO LEFT BUTTOCK AND SCAR/LESION TO RT BUTTOCK. DEFER TO MD FOR RT BUTTOCK LESION. SURGICAL TEAM FOLLOWING PT. ALL SKIN PROTECTION RECOMMENDATIONS DISCUSSED WITH NURSING STAFF. PT HAS G TUBE, TRACH AND CANNON CATH. WILL SEE PRN. MD IN AGREEMENT WITH PLAN OF CARE. Addendum: 05/09/19 at 1059 by BRYANT SYED WNDNU Amended: Links added.
[2019-05-09] MEDS: Z GUARD REMEDY 2 OZ OINT TP SCH ×3 (11:00→21:28)
[2019-05-09 16:07] VITALS: BP 168/85
[2019-05-09] MEDS: Z GUARD REMEDY 2 OZ OINT TP PRN ×3 (18:29→21:26)
--- NOTE | 2019-05-09 19:38 | NUR ---
RN NOTES RECEIVED PATIENT AWAKE, RESTING COMFORTABLY IN BED. PATIENT IS A/O X1. NONVERBAL. NO SIGNS OF RESPIRATORY DISTRESS. NO SIGNS OF SOB. NO FACIAL GRIMACING OR DISCOMFORT INDICATING PAIN AT THIS TIME. SAFETY PRECAUTIONS IMPLEMENTED; CALL LIGHT WITHIN REACH, BED LOW, BED LOCKED, SIDERAILS UP X2. WILL CONTINUE TO MONITOR PATIENT.
[2019-05-09 20:00] VITALS: BP 183/90
[2019-05-09] MEDS: DOXAZOSIN MESYLATE (1 MG) 1 MG TABLET PO SCH (22:00)
[2019-05-09] MEDS: TAMSULOSIN 0.4 MG CAP.SR.24H PO SCH (22:00)
--- NOTE | 2019-05-09 22:52 | NUR ---
RN NOTES PATIENT RECEIVED FINAL DOSE OF POTASSIUM. AM NURSE ANUJA THOMAS DID NOT COMPLETE FULL DOSE. POTASSIUM LAB VALUE AT 3.0, AT THE LATEST. WILL CONTINUE TO MONITOR.
[2019-05-10] MEDS: ALBUTEROL FS 2.5 MG/0.5 ML VIAL.NEB NEB SCH ×4 (01:21→19:28)
[2019-05-10] MEDS: IPRATROPIUM NEB FS 0.5 MG/2.5 ML AMPUL.NEB NEB SCH ×4 (01:21→19:27)
[2019-05-10] MEDS: METOCLOPRAMIDE HCL 10 MG TABLET GT SCH ×3 (04:44→20:50)
[2019-05-10] MEDS: hydrALAZINE HCL 25 MG TABLET GT SCH ×3 (04:44→20:51)
[2019-05-10] MEDS: CLONIDINE HCL 0.1 MG TABLET GT SCH ×3 (04:44→20:50)
[2019-05-10] MEDS: LEVETIRACETAM SOL (5 ML) 100 MG/ML UDC GT SCH ×3 (04:44→20:49)
--- NOTE | 2019-05-10 06:40 | NUR ---
RN CLOSING NOTES PT IS ALERT, AWAKE, NONVERBAL. NO SIGNS OF RESPIRATORY DISTRESS OR SOB. NO SIGNS OF FACIAL GRIMACING INDICATING PAIN OR DISCOMFORT. DENIES ANY PAIN OVERNIGHT, GT INTACT. CANNON DRAINING WELL, TRACH COLLAR CAPPED. BP ELEVATED WITH BP MEDS GIVEN STILL NOT EFFECTIVE. MD AWARE. IV SITE INTACT AND PATENT. SAFETY PRECAUTIONS IMPLEMENTED; CALL LIGHT WITHIN REACH, BED LOW, BED LOCKED, SIDERAILS UP X2. WOUND CARE IMPLEMENTED. TURNED AND REPOSITIONED Q2H. ALL NEEDS ATTENDED TO AT THIS TIME. WILL ENDORSE TO AM SHIFT FOR CONTINUITY OF CARE.
[2019-05-10 07:10] LABS: BASOPHILS # (AUTO) 0.1 /CMM (0.0-0.2); BASOPHILS % (AUTO) 0.7 % (0.0-2.0); EOSINOPHILS % (AUTO) 2.3 % (0.0-6.0); HEMATOCRIT 30 % (39-51); HEMOGLOBIN 10.4 g/dL (13.5-17.5); LYMPHOCYTES # (AUTO) 1.6 /CMM (0.8-4.8); LYMPHOCYTES % (AUTO) 12.5 % (20.0-44.0); MEAN CORPUSCULAR HGB CONC 34 g/dl (31.0-36.0); MEAN CORPUSCULAR VOLUME 84 fL (80-96); MONOCYTES # (AUTO) 0.9 /CMM (0.1-1.30); MONOCYTES % (AUTO) 6.9 % (2.0-12.0); NEUTROPHILS # (AUTO) 9.7 /CMM (1.8-8.9); NEUTROPHILS % (AUTO) 77.6 % (43.0-81.0); PLATELET COUNT (AUTO) 319 /CMM (150-450); WHITE BLOOD COUNT (AUTO) 12.5 K/uL (4.3-11.0)
[2019-05-10 07:21] LABS: ALBUMIN 2.1 g/dL (3.4-5.0); BILIRUBIN,TOTAL 0.5 mg/dL (0.2-1.0); CALCIUM, SERUM 8.9 mg/dL (8.5-10.1); CREATININE 1.8 mg/dL (0.6-1.3); MAGNESIUM 1.7 mg/dL (1.8-2.4); PHOSPHORUS 3.2 mg/dL (2.5-4.9); POTASSIUM 2.9 mmol/L (3.5-5.1); TOTAL PROTEIN, SERUM 6.3 g/dL (6.4-8.2)
[2019-05-10] MEDS: BLOOD SUGAR DIAGNOSTIC 1 EACH STRIP IN SCH ×4 (07:45→22:02)
[2019-05-10] MEDS: INSULIN REGULAR, HUMAN 100 UNIT/ML 3 ML VIAL SQ PRN ×4 (07:50→22:07)
[2019-05-10 08:00] VITALS: BP 190/100
--- NOTE | 2019-05-10 08:00 | NUR ---
RN OPENING NOTE RECEIVED PT. PT STABLE RESTING IN BED. NO S/S OF RESP DISTRESS. NO C/O PAIN. PT IS ON RA, TRACH NOTED. PT REQUIRES FREQUENT TURNING, WOUNDS PRESENT ON BILATERAL BUTTOCKS. SAFETY MEASURES IN PLACE, CALL LIGHT IN REACH. WILL CONT TO MONITOR.
[2019-05-10] MEDS: DOCUSATE SODIUM LIQ 100 MG/10 ML UDC GT SCH ×2 (08:10→20:49)
[2019-05-10] MEDS: FAMOTIDINE (20 MG) 20 MG TABLET GT SCH (08:10)
[2019-05-10] MEDS: CHLORHEXIDINE GLUCONATE 15 ML UDC MM SCH (08:10)
[2019-05-10] MEDS: LINAGLIPTIN 5 MG TABLET PO SCH (08:10)
[2019-05-10] MEDS: ISOSORBIDE MONONITRATE (30MG) 30 MG TAB.SR.24H PO SCH (08:11)
[2019-05-10] MEDS: AMLODIPINE BESYLATE 10 MG TABLET GT SCH (08:11)
[2019-05-10] MEDS: Z GUARD REMEDY 2 OZ OINT TP SCH ×3 (08:20→20:57)
[2019-05-10] MEDS ORDERED: IV D5W 1,000 ML IV PRN (09:30)
[2019-05-10] MEDS ORDERED: Magnesium 1GM/D5W 100ML PREMIX 100 ML IV SCH (10:49)
[2019-05-10] MEDS ORDERED: POTASSIUM CHLORIDE 20 MEQ POWDER PACKET GT SCH (12:00)
[2019-05-10 16:00] VITALS: BP 158/86
[2019-05-10] MEDS: DOXAZOSIN MESYLATE (1 MG) 1 MG TABLET PO SCH (17:03)
--- NOTE | 2019-05-10 18:44 | NUR ---
RN CLOSING NOTE PT IN BED RESTING. CANNON CATH D/C, BLADDER SCAN TO BE PERFORMED AT 2200. ALL PT NEEDS ANTICIPATED AND MET. SAFETY MEASURES IN PLACE, CALL LIGHT WITHIN REACH. WILL ENDORSE TO HYPO DIPPER FOR SALLY.
--- NOTE | 2019-05-10 19:00 | NUR ---
RN medsurg opening notes Received Pt form morning nurse. Pt is resting in bed comfortably watching TV. Respiration is clear and unlabored. No S/S of distress noted. Pt is on Trach intact and patent. Gtube is intact and patent. Pt is non verbal and able to say yes or no. Pt denies any pain or discomfort. Right side weakness. IV sites on L wrist # 22 G is patent,intact and SL. Bed at low position and call light is within reach. Will continue to monitor.
[2019-05-10 20:00] VITALS: BP 162/89
[2019-05-10] MEDS: TAMSULOSIN 0.4 MG CAP.SR.24H PO SCH (21:54)
--- NOTE | 2019-05-10 22:00 | NUR ---
RN medsurg notes Pt's bladder scan showed 153 ml. Pt urinated some in the diaper. Abdomen soft and non distended. Will continue to monitor.
--- NOTE | 2019-05-11 00:45 | NUR ---
RN medsur notes Informed and notified Dr. Pedroza that Pt's bladder scan was 182 ml. Pt has been urinating in the diaper. Dr. Pedroza order to check Pt's bladder in 4 Hrs. Will continue to monitor.
[2019-05-11] MEDS: IPRATROPIUM NEB FS 0.5 MG/2.5 ML AMPUL.NEB NEB SCH ×3 (01:30→13:30)
[2019-05-11] MEDS: ALBUTEROL FS 2.5 MG/0.5 ML VIAL.NEB NEB SCH ×3 (01:30→13:30)
--- NOTE | 2019-05-11 04:56 | NUR ---
RN medsur notes Pt's bladder scan was 24 ml. Pt has been urinating in the diaper. Clear yellow urine, no odor and no sediment. Will continue to monitor.
[2019-05-11] MEDS: METOCLOPRAMIDE HCL 10 MG TABLET GT SCH ×2 (05:02→13:34)
[2019-05-11] MEDS: CLONIDINE HCL 0.1 MG TABLET GT SCH ×2 (05:02→13:33)
[2019-05-11] MEDS: LEVETIRACETAM SOL (5 ML) 100 MG/ML UDC GT SCH ×2 (05:02→13:33)
[2019-05-11] MEDS: hydrALAZINE HCL 25 MG TABLET GT SCH ×2 (05:03→13:33)
[2019-05-11 06:00] VITALS: BP 175/89
[2019-05-11 06:23] LABS: BASOPHILS # (AUTO) 0.1 /CMM (0.0-0.2); BASOPHILS % (AUTO) 0.6 % (0.0-2.0); EOSINOPHILS % (AUTO) 2.2 % (0.0-6.0); HEMATOCRIT 30 % (39-51); HEMOGLOBIN 10.1 g/dL (13.5-17.5); LYMPHOCYTES # (AUTO) 1.7 /CMM (0.8-4.8); LYMPHOCYTES % (AUTO) 13.9 % (20.0-44.0); MEAN CORPUSCULAR HGB CONC 34 g/dl (31.0-36.0); MEAN CORPUSCULAR VOLUME 84 fL (80-96); MONOCYTES # (AUTO) 0.9 /CMM (0.1-1.30); MONOCYTES % (AUTO) 7.8 % (2.0-12.0); NEUTROPHILS # (AUTO) 9.1 /CMM (1.8-8.9); NEUTROPHILS % (AUTO) 75.5 % (43.0-81.0); PLATELET COUNT (AUTO) 281 /CMM (150-450); RED BLOOD CELL COUNT(AUTO) 3.54 MIL/uL (4.5-6.0)
[2019-05-11 06:29] LABS: BILIRUBIN,TOTAL 0.5 mg/dL (0.2-1.0); CALCIUM, SERUM 8.5 mg/dL (8.5-10.1); CREATININE 1.8 mg/dL (0.6-1.3); MAGNESIUM 1.6 mg/dL (1.8-2.4); PHOSPHORUS 3.2 mg/dL (2.5-4.9); POTASSIUM 3.1 mmol/L (3.5-5.1); TOTAL PROTEIN, SERUM 5.9 g/dL (6.4-8.2)
[2019-05-11] MEDS: BLOOD SUGAR DIAGNOSTIC 1 EACH STRIP IN SCH ×2 (06:30→12:05)
[2019-05-11] MEDS: INSULIN REGULAR, HUMAN 100 UNIT/ML 3 ML VIAL SQ PRN ×2 (06:34→11:40)
--- NOTE | 2019-05-11 06:57 | NUR ---
RN medsurg notes Pt is resting in bed comfortably with eyes closed. Awaken easily. NO SOB. No S/S of distress noted. IV sites on L wrist is intact, patent and infusing well. Recent blood glucose at 0630 was 171 (administered 3 units of insulin). All routine meds have been given, skin care provided and assisted all needs. Last bladder scan at 0455 was 23 ml. Pt has been urinating in the diaper. Safety precautions is maintained. Bed at low position and call light is within reach. Will endorse to morning nurse for SALLY.
[2019-05-11] MEDS ORDERED: SPIR25TA GT (07:14)
[2019-05-11] MEDS ORDERED: TAMS-12 PO (07:14)
[2019-05-11] MEDS ORDERED: Isosorbide Mononitrate (30MG) PO (07:14)
--- NOTE | 2019-05-11 07:30 | NUR ---
RN MS NOTES PT IN BED, ASLEEP, RESPIRATIONS NORMAL, EASY TO AROUSE, NO FACIAL GRIMACING OR MOANING, CALL LIGHT WITHIN REACH, KEPT WARM AND COMFORTABLE IN BED.
[2019-05-11 08:00] VITALS: BP 176/88
[2019-05-11] MEDS: LINAGLIPTIN 5 MG TABLET PO SCH (08:18)
[2019-05-11] MEDS: CHLORHEXIDINE GLUCONATE 15 ML UDC MM SCH (08:18)
[2019-05-11] MEDS: DOCUSATE SODIUM LIQ 100 MG/10 ML UDC GT SCH (08:18)
[2019-05-11] MEDS: ISOSORBIDE MONONITRATE (30MG) 30 MG TAB.SR.24H PO SCH (08:19)
[2019-05-11] MEDS: FAMOTIDINE (20 MG) 20 MG TABLET GT SCH (08:20)
[2019-05-11] MEDS: DOXAZOSIN MESYLATE (1 MG) 1 MG TABLET PO SCH (08:20)
[2019-05-11] MEDS: AMLODIPINE BESYLATE 10 MG TABLET GT SCH (08:20)
[2019-05-11] MEDS: Z GUARD REMEDY 2 OZ OINT TP SCH ×2 (08:33→11:26)
[2019-05-11] MEDS ORDERED: SPIRONOLACTONE 25 MG TABLET GT SCH (09:00)
[2019-05-11 09:37] VITALS: BP 154/80
--- NOTE | 2019-05-11 09:54 | NUR ---
RN MS NOTES DR. MARTINEZ INFORMED OF PT'S ELEVATED BP DURING THE NIGHT, ORDER FOR POTASSIUM REPLACEMENT RECEIVED, ALSO INFORMED OF LOW MAGNESIUM LEVEL, STATED THAT HE WILL FOLLOW IT UP WHEN THE PT DISCHARGES TO [facility] TODAY.
[2019-05-11] MEDS ORDERED: POTASSIUM CHLORIDE 20 MEQ POWDER PACKET GT ONE (10:00)
[2019-05-11] MEDS ORDERED: MINOXIDIL (2.5MG) 2.5 MG TABLET PO SCH (10:30)
[2019-05-11] MEDS ORDERED: MAGNESIUM OXIDE 400 MG TABLET GT ONE (12:00)
[2019-05-11 13:33] VITALS: BP 162/81
--- NOTE | 2019-05-11 14:40 | NUR ---
RN MS NOTES PT IN BED, ASLEEP, EASY TO AROUSE, ALERT TO SELF, DISCHARGE ORDER GIVEN BY DR. MARTINEZ, PT INFORMED, DISCHARGE AND MEDICATION PROVIDED TO ADMITTING NURSE INESSA FISCHER OF [facility], PT HAS NO BELONGINGS, PICKED UP BY 2 AMBULANCE PERSONNEL, LEFT VIA GUERNEY IN STABLE CONDITION.
== END 2019-05-11 14:30 | DRG 470 ==
LOC: ER 16:50 → TELE 18:41 → MED 05-04 10:00
PROVIDERS: ADMIT Internal Medicine Nephrology; ATTEND Internal Medicine
DX: I12.9 Hypertensive chronic kidney disease with stage 1 through stage 4 chronic kidney disease, or unspecified chronic kidney disease (principal); N17.0 Acute kidney failure with tubular necrosis; G93.40 Encephalopathy, unspecified; Z93.0 Tracheostomy status; R13.10 Dysphagia, unspecified; E11.22 Type 2 diabetes mellitus with diabetic chronic kidney disease; Z86.73 Personal history of transient ischemic attack (TIA), and cerebral infarction without residual deficits; E87.0 Hyperosmolality and hypernatremia; Z79.899 Other long term (current) drug therapy; Z79.4 Long term (current) use of insulin; Z93.1 Gastrostomy status; T46.5X5A Adverse effect of other antihypertensive drugs, initial encounter; Y92.9 Unspecified place or not applicable; G81.91 Hemiplegia, unspecified affecting right dominant side; L98.9 Disorder of the skin and subcutaneous tissue, unspecified; N18.2 Chronic kidney disease, stage 2 (mild)
CPT/HCPCS: 36415; 71045-TC; 74230-TC; 76770-TC; 80048-TC; 80053-TC; 80076-TC; 82533; 82962-TC; 83690-TC; 83735-TC; 83880; 84100-TC; 84443-TC; 85025-TC; 87040-TC; 87081-TC; 92526; 92611-TC; 94799-TC; A6402; G0378; J1815; J1953; J3475; J3480; J7030; J7060; J8597

== ENCOUNTER 2019-07-30 10:32 | Inpatient (IN) | payer MEDICAID, OTHER ==
[~2019-07-30] VITALS: Ht 170.2 cm; Wt 75.7 kg
[~2019-07-30 10:32] MED LIST: ACET-73 GT; ACET500C4 GT; AMLO10TA4 GT; BISA10SU61 RC; CHLO473M3 MM; CLON0.3T GT; CRAN3875 GT; DOCU100T2 GT; DOXA8TAB79 GT; FAMO20TA8 GT; FURO-145 GT; HYDR-4076 GT; INSU100I14 SQ; INSU100V7 SQ; IPRA3AMP23 IH; Isosorbide Mononitrate (30MG) PO; LABE300T2 GT; LEVE500T9 GT; LINA5TAB PO; LOSA100T31 GT; MAGN400O6 GT; METO-295 GT; MINO2.5T GT; NA P133E RC; SPIR25TA GT; TAMS-12 PO
--- NOTE | 2019-07-30 10:40 | NUR ---
BIBA Unit 115 Armenian Professional from [facility] Urinary Retention "episodes of urinary retention with high BUN/Crea" Patient a/ox1-2, non-verbal but able to make gestures. Needs attended and met, kept comfortable. Attached to the engine monitor.
[2019-07-30] MEDS ORDERED: SPIR25TA GT (11:02)
[2019-07-30] MEDS ORDERED: FERR300L GT (11:02)
[2019-07-30] MEDS ORDERED: INSU100I26 SQ (11:02)
[2019-07-30] MEDS ORDERED: ISOS20TA8 GT (11:02)
[2019-07-30] MEDS ORDERED: SODI10PO GT (11:02)
[2019-07-30] MEDS ORDERED: NUT.237L67 GT (11:02)
[2019-07-30] MEDS ORDERED: NUTR1PAC14 GT (11:02)
[2019-07-30] MEDS ORDERED: EPOE1VIA12 SQ (11:02)
[2019-07-30] MEDS ORDERED: ACET650S26 GT (11:02)
[2019-07-30] MEDS ORDERED: SENN-168 GT (11:02)
[2019-07-30] MEDS ORDERED: INSU100V36 SQ (11:02)
[2019-07-30] MEDS ORDERED: SITA50TA GT (11:02)
[2019-07-30] MEDS ORDERED: IV NS 0.9% 1,000 ML BAG IV ONE ×3 (12:00→13:30)
[2019-07-30 12:08] LABS: BASOPHILS % (AUTO) 0.2 % (0.0-2.0); HEMATOCRIT 23 % (39-51); HEMOGLOBIN 7.6 g/dL (13.5-17.5); LYMPHOCYTES # (AUTO) 0.7 /CMM (0.8-4.8); LYMPHOCYTES % (AUTO) 2.3 % (20.0-44.0); MEAN CORPUSCULAR HGB CONC 33 g/dl (31.0-36.0); MEAN CORPUSCULAR VOLUME 88 fL (80-96); MONOCYTES # (AUTO) 3.6 /CMM (0.1-1.30); MONOCYTES % (AUTO) 11.8 % (2.0-12.0); NEUTROPHILS # (AUTO) 26.2 /CMM (1.8-8.9); NEUTROPHILS % (AUTO) 85.7 % (43.0-81.0); PLATELET COUNT (AUTO) 220 /CMM (150-450); RED BLOOD CELL COUNT(AUTO) 2.62 MIL/uL (4.5-6.0)
[2019-07-30 12:11] LABS: WHITE BLOOD COUNT (AUTO) 30.5 K/uL (4.3-11.0)
--- NOTE | 2019-07-30 12:15 | NUR ---
bladder scan showed 75ml in the bladder. Straight cath done with 5ml output. Seen by Dr. Morocho.
[2019-07-30 12:22] LABS: ALBUMIN 2.6 g/dL (3.4-5.0); BILIRUBIN,DIRECT 0.3 mg/dL (0.0-0.2); BILIRUBIN,TOTAL 0.7 mg/dL (0.2-1.0); TOTAL PROTEIN, SERUM 7.5 g/dL (6.4-8.2)
[2019-07-30 12:24] LABS: CREATININE 7.6 mg/dL (0.6-1.3); POTASSIUM 2.8 mmol/L (3.5-5.1)
[2019-07-30 13:14] LABS: BAND % (MANUAL) 4 % (0.0-5.0); LYMPHOCYTES % (MANUAL) 1 % (16-48); MONOCYTES % (MANUAL) 15 % (0-11.0); NEUTROPHILS % (MANUAL) 80 (42-76)
--- NOTE | 2019-07-30 13:44 | NUR ---
CALLED ANNIE JUAREZ, PAGED WOOL TAMPER NING HINTON
--- NOTE | 2019-07-30 14:03 | NUR ---
PAGED VIDEO SURVEILLANCE TECHNICIAN NING HINTON
[2019-07-30 14:15] LABS: APPEARANCE,URINE Cloudy (CLEAR); BILIRUBIN,URINE SMALL (NEGATIVE); BLOOD, URINE Moderate Ery/uL (NEGATIVE); COLOR,URINE Yellow (YELLOW); KETONES,URINE Negative (NEGATIVE); LEUKOCYTE ESTERASE ,URINE Large (NEGATIVE); NITRITE, URINE Negative (NEGATIVE); PH,URINE 5.5 (5.0-8.0); PROTEIN,URINE >=300 mg/dl (NEGATIVE); UGLUCOSE 100 MG/DL mg/dL (NEGATIVE); UROBILINOGEN,URINE 0.2 EU/dL (0.2)
[2019-07-30 14:26] LABS: BACTERIA,URINE 2+ /HPF (None Seen); SQUAMOUS EPITHELIAL CELL,UR Few /HPF (None Seen); WBC,URINE 51-80 /HPF (0-3)
[2019-07-30] MEDS ORDERED: PIPERACILLIN /TAZOBACTAM 3.375 G in IV D5W 50 ML IV ONE (14:30)
--- NOTE | 2019-07-30 14:45 | NUR ---
ROOM 101, RECEIVED VERBAL ORDERS FROM DR. NING HINTON FOR INPATIENT ORDERS.
--- NOTE | 2019-07-30 15:02 | NUR ---
REPORT GIVEN TO IMTIAZ FISCHER FOR SALLY.
--- NOTE | 2019-07-30 15:20 | NUR ---
REGINALDO/RN NOTES RECEIVED PATIENT FORM ER. PATIENT WAS BROUGHT IN BY ER NURSES WITH A GURBARBARA. PATIENT WAS TRANSFERRED TO BED. INITIAL SKIN ASSESSMENT WAS DONE. SKIN IS INTACT. PATIENT NOTED WITH GT AND RFA IV SITE. INTACT AND PATENT. FLUSHING WELL. ALL NEEDS ANTICIPATED. CALL LIGHT WITHIN REACHED. BED LOCKED AND IN LOWEST POSITION. SAFETY MAINTAINED. WILL CONTINUE TO MONITOR.
--- NOTE | 2019-07-30 15:29 | NUR ---
PATIENT TRANSFERRED TO ROOM 101 VIA ACLS PROTOCOL. NO DISTRESS NOTED. ENDORSED TO IMTIAZ FISCHER.
[2019-07-30 16:00] VITALS: BP 101/54
[2019-07-30] MEDS ORDERED: FEE PK DOSING 1 MIN EA MC ONE (16:10)
[2019-07-30] MEDS ORDERED: IV D5/0.45 NACL 1,000 ML IV PRN (16:30)
[2019-07-30] MEDS ORDERED: NEPRO 1,000 ML BOTTLE GT SCH (16:30)
[2019-07-30] MEDS ORDERED: MAGNESIUM HYDROXIDE 30 ML UDC GT PRN (16:30)
[2019-07-30] MEDS ORDERED: NA PHOS,M-B/NA PHOS,DI-BA 1 EA ENEMA RC PRN (16:30)
[2019-07-30] MEDS ORDERED: DEXTROSE 50%-WATER 50 ML DISP.SYRIN IV PRN (16:30)
[2019-07-30] MEDS ORDERED: BISACODYL SUPP (10 MG) 10 MG/SUPP.RECT SUPP.RECT RC PRN (16:30)
[2019-07-30] MEDS ORDERED: IV D5/0.45 NACL 500 ML IV SCH (16:30)
[2019-07-30] MEDS: ISOSORBIDE DINITRATE (20MG) 20 MG TABLET GT SCH (17:00)
[2019-07-30] MEDS ORDERED: VANCOMYCIN 1 GM in IV D5W 250 ML IV ONE (17:00)
[2019-07-30] MEDS ORDERED: NEPRO 1,000 ML BOTTLE GT PRN (17:00)
[2019-07-30] MEDS ORDERED: Medication Not On Formulary EA (Arginine/Glutamine/Calcium Hmb (Juven Packet) 1 EACH) GT SCH (17:00)
--- NOTE | 2019-07-30 17:27 | NUR ---
REGINALDO/RN NOTES MEDICATION ISORDIL WAS HELD DUE TO BP OF 101/54. PATIENT REMAINS IN STABLE CONDITION. WILL CONTINUE TO MONITOR.
[2019-07-30] MEDS: BLOOD SUGAR DIAGNOSTIC 1 EACH STRIP IN SCH ×2 (17:51→23:09)
[2019-07-30] MEDS: INSULIN REGULAR, HUMAN 100 UNIT/ML 3 ML VIAL SQ PRN ×2 (17:53→23:10)
[2019-07-30 18:08] VITALS: BP 101/54
--- NOTE | 2019-07-30 19:18 | NUR ---
REGINALDO/RN CLOSING NOTES PATIENT CONTINUE TO REMAIN IN STABLE CONDITION. PROVIDED COMFORT AND SAFETY THROUGHOUT THE SHIFT. PATIENT ABLE TO TOLERATE GT FEEDING WELL HIS IVF. INTACT AND PATENT. FLUSHING WELL. HOB ELEVATED AT ALL TIMES. ALL NEEDS ANTICIPATED. KEPT CLEAN AND DRY. CALL LIGHT WITHIN REACHED. BED LOCKED AND IN LOWEST POSITION. SAFETY MAINTAINED. WILL CONTINUE TO MONITOR CLOSELY. ENDORSED TO PM NURSE FOR SALLY.
[2019-07-30] MEDS ORDERED: ALBUTEROL FS 2.5 MG/0.5 ML VIAL.NEB NEB PRN ×2 (19:30→21:00)
--- NOTE | 2019-07-30 19:44 | NUR ---
REGINALDO RN, left message to Dr.S siddiqui re; patient's lab results potassium 2.8 NA 130 bun 168 creatine 7.6 waiting for returning call back endorse to next nurse re; above
[2019-07-30 20:00] VITALS: BP 104/22
[2019-07-30] MEDS: ALBUTEROL FS 2.5 MG/0.5 ML VIAL.NEB NEB SCH (20:02)
[2019-07-30] MEDS: MEROPENEM 500 MG in IV NS 0.9% 50 ML IV SCH (20:11)
--- NOTE | 2019-07-30 20:25 | NUR ---
RN PT ON COOL AEROSOL 10L O2, O2 SAT REMAINS 85-90%, RT AT BEDSIDE, FIO2 INCREASED , O2 SAT REMAINS LOW 90%, MD NING HINTON TORTS LAW PROFESSOR PAGED.
--- NOTE | 2019-07-30 20:35 | NUR ---
RN MD SHRUTHI HINTON CALLED BACK , AAWARE OF LAB RESULTS, K 2.8, NA 130, BUN 168, NO URINARY OUTPUT, MD AWARE OF O2 SAT, MD WITH NEW ORDER TO REPLACE POTASSIUM WITH 40 MEQ IV, DECREASE IVF TO 30 ML/HR, PER MD IF UNABLE TO KEEP O2 SAT >92% PLACE PT ON VENT, AND IF FIO2 REMAINS > 50% TRANSFER PT TO ICU . CHARGE NURSE MADE AWARE.
--- NOTE | 2019-07-30 20:42 | NUR ---
RN MD NING HINTON CALLED. WITH NEW ORDER TO GIVE LASIX 40 IVP X1 NOW.
[2019-07-30] MEDS: hydrALAZINE HCL 25 MG TABLET GT SCH (21:00)
[2019-07-30] MEDS: LABETALOL HCL (100MG) 100 MG TABLET GT SCH (21:00)
[2019-07-30] MEDS ORDERED: INSULIN GLARGINE, 100 UNIT/ML CARTRIDGE SQ SCH (21:00)
[2019-07-30] MEDS ORDERED: IPRATROPIUM NEB FS 0.5 MG/2.5 ML AMPUL.NEB NEB PRN (21:00)
[2019-07-30] MEDS ORDERED: LINEZOLID RTU BAG 600 MG in PREMIX 1 EA IV SCH (21:00)
[2019-07-30] MEDS ORDERED: CLONIDINE HCL 0.1 MG TABLET GT SCH (21:00)
[2019-07-30] MEDS: DOCUSATE SODIUM LIQ 100 MG/10 ML UDC GT SCH (21:08)
[2019-07-30] MEDS: LEVETIRACETAM SOL (5 ML) 100 MG/ML UDC GT SCH (21:08)
[2019-07-30] MEDS: METOCLOPRAMIDE HCL 10 MG TABLET GT SCH (21:09)
[2019-07-30] MEDS: POTASSIUM CL. PREMIX PERIPHER. 50 ML IV SCH ×4 (21:16→23:50)
[2019-07-30] MEDS ORDERED: FUROSEMIDE 40 MG/4 ML VIAL IV ONE (21:30)
[2019-07-30 22:00] VITALS: BP 97/39
[2019-07-30] MEDS ORDERED: DOXAZOSIN MESYLATE (4 MG) 4 MG TABLET GT SCH (22:00)
[2019-07-30] MEDS: SENNOSIDES 8.6 MG TABLET GT SCH (22:01)
--- NOTE | 2019-07-30 23:50 | NUR ---
RN PT AWAKE, ALERT, RESPONSIVE, NOTED WITH O2 SAT IN LOW 80'S, PT ON COOL AEROSOL 98%, F/C IN PLACE, BP STABLE, RT PAGED, CHARGE NURSE AT BEDSIDE
[2019-07-31] VITALS (53 sets, daily range): BP systolic 92–123; BP diastolic 44–63
--- NOTE | 2019-07-31 | NUR ---
RN CALLED NURSING CENTER RECEPTIONIST FOR ICU BED, BED, ASSIGNED # [id number], PT WITH LOW URINARY OUTPUT, BLADDER SCANNER DONE, 55 ML RESIDUAL NOTED.
--- NOTE | 2019-07-31 00:10 | NUR ---
RN PT REPORT TO ED, RN IN ICU
--- NOTE | 2019-07-31 00:22 | NUR ---
RN PT TRANSFERRED TO ICU VIA ACLS PROTOCOL, RT AT BEDSIDE, PT PLACED ON VENT.
--- NOTE | 2019-07-31 00:59 | NUR ---
pt transferred from [facility] to ICU for acute renal failure and Respiratory distress, received pt trached portex 7 cuffless, pt is on AC 16, 500, 100% , 0 PEEP, order was placed by DR Aguilar, Also Dr Aguilar was informed about pts cuffless trach, unable to get accurate ventilator measurements , RN aware MD aware, PT is saturating at 100% and dose not show any signs of respiratory distress at this time. Addendum: 07/31/19 at 0107 by FLORIN MARIN RT Amended: Links added.
[2019-07-31 01:23] LABS: CREATININE, URINE 146.8 MG/DL (30.0-125.0)
--- NOTE | 2019-07-31 01:30 | NUR ---
Received report from ED for continuity of care.Patient awake in no acute distress. VS stable.Maintained on prescribed vent settings.Patient bucking up the vent keep alarming.RT at bedside.SPO2 100%.FC to gravity with concentrated urine small amount. Turned and repositioned to comfort.Continue monitoring.
[2019-07-31] MEDS: ALBUTEROL FS 2.5 MG/0.5 ML VIAL.NEB NEB SCH ×4 (02:09→19:24)
[2019-07-31] MEDS: ACETAMINOPHEN 650 MG/20.3 ML UDC PO PRN ×2 (02:12→08:18)
[2019-07-31 04:36] LABS: BASOPHILS % (AUTO) 0.2 % (0.0-2.0); HEMATOCRIT 24 % (39-51); HEMOGLOBIN 8.1 g/dL (13.5-17.5); LYMPHOCYTES # (AUTO) 0.6 /CMM (0.8-4.8); LYMPHOCYTES % (AUTO) 2.2 % (20.0-44.0); MEAN CORPUSCULAR HGB CONC 33 g/dl (31.0-36.0); MEAN CORPUSCULAR VOLUME 89 fL (80-96); MONOCYTES # (AUTO) 1.9 /CMM (0.1-1.30); MONOCYTES % (AUTO) 6.8 % (2.0-12.0); NEUTROPHILS # (AUTO) 25.9 /CMM (1.8-8.9); NEUTROPHILS % (AUTO) 90.8 % (43.0-81.0); PLATELET COUNT (AUTO) 230 /CMM (150-450); RED BLOOD CELL COUNT(AUTO) 2.73 MIL/uL (4.5-6.0); WHITE BLOOD COUNT (AUTO) 28.4 K/uL (4.3-11.0)
[2019-07-31 04:55] LABS: ALBUMIN 2.4 g/dL (3.4-5.0); BILIRUBIN,TOTAL 0.9 mg/dL (0.2-1.0); TOTAL PROTEIN, SERUM 7.5 g/dL (6.4-8.2)
[2019-07-31 04:58] LABS: CREATININE 7.7 mg/dL (0.6-1.3)
[2019-07-31] MEDS: METOCLOPRAMIDE HCL 10 MG TABLET GT SCH ×3 (05:08→20:45)
[2019-07-31] MEDS: LABETALOL HCL (100MG) 100 MG TABLET GT SCH (05:09)
[2019-07-31] MEDS: hydrALAZINE HCL 25 MG TABLET GT SCH (05:09)
[2019-07-31] MEDS: INSULIN REGULAR, HUMAN 100 UNIT/ML 3 ML VIAL SQ PRN ×3 (05:48→17:49)
[2019-07-31] MEDS: BLOOD SUGAR DIAGNOSTIC 1 EACH STRIP IN SCH ×4 (05:49→23:57)
--- NOTE | 2019-07-31 06:30 | NUR ---
Patient resting in no acute distress.VS remains stable.Tele junctional rhythm 83.AM care done. Tolerating gt feeding well.FSBS 191 coverage given per sliding scale.Turned and repositioned. Remains low urine output.Will endorse to day shift for continuity of care
--- NOTE | 2019-07-31 07:15 | NUR ---
CENSUS TAKER INITIAL NOTES: Rec'd pt on bed, not in any distress, A/O x 1, follows simple commands. On MV via trach, sating at 98%. Accelerated junctional on telemonitor 77bpm. Has GT on Nepro x 40 cc/hr infusing well. Has FC draining to minimal yellowish UOP. Has RFA G20 w/ D5 1/2 NS x 30cc/hr infusing well w/ no s/sx of infection/infiltration noted. Safety precaution in place w/ bed in lowest & locked pos. Call light placed w/in reach. Will continue to monitor & attend pt needs.
--- NOTE | 2019-07-31 08:00 | NUR ---
DECREASED FIO2 FROM 100% TO 60% DUE TO 100% SPO2. Addendum: 07/31/19 at 0859 by EMMY TOLEDO RT Amended: Links added.
[2019-07-31] MEDS: ISOSORBIDE DINITRATE (20MG) 20 MG TABLET GT SCH (08:13)
[2019-07-31] MEDS: CHLORHEXIDINE GLUCONATE 15 ML UDC MM SCH (08:17)
[2019-07-31] MEDS: LEVETIRACETAM SOL (5 ML) 100 MG/ML UDC GT SCH (08:17)
[2019-07-31] MEDS: DOCUSATE SODIUM LIQ 100 MG/10 ML UDC GT SCH ×2 (08:18→20:44)
[2019-07-31] MEDS: FERROUS SULFATE UDC 300 MG/5 ML UDC GT SCH (08:18)
[2019-07-31] MEDS: FAMOTIDINE (20 MG) 20 MG TABLET GT SCH (08:18)
--- NOTE | 2019-07-31 08:30 | NUR ---
Pt seen & examined by Dr. Day,updated about pt status (temp 100.7). Per , hold GTF for now until further orders. spoke w/ the pt re: placement of HD catheter & initiation of HD procedure. Pt expressed understanding. Consent was secured & signed by Dr. Day in behalf of the pt. Per , she notified Dr. Moran & Dr. Sybil Valles for HD cath placement. Per Dr. Day, may send urine for studies & may place SCD pumps.
--- NOTE | 2019-07-31 08:45 | NUR ---
Left VM to US dept re: follow up on US abdomen order. Awaiting call back.
[2019-07-31] MEDS ORDERED: Medication Not On Formulary EA (Sodium Zirconium Cyclosilicate (Lokelma) 10 GM) GT SCH (09:00)
[2019-07-31] MEDS ORDERED: LINAGLIPTIN 5 MG TABLET PO SCH (09:00)
[2019-07-31] MEDS ORDERED: MINOXIDIL (2.5MG) 2.5 MG TABLET GT SCH (09:00)
[2019-07-31] MEDS ORDERED: AMLODIPINE BESYLATE 10 MG TABLET GT SCH (09:00)
[2019-07-31] MEDS ORDERED: FUROSEMIDE 20 MG TABLET GT SCH (09:00)
[2019-07-31] MEDS ORDERED: SPIRONOLACTONE 25 MG TABLET GT SCH (09:00)
[2019-07-31] MEDS: POTASSIUM CL. PREMIX PERIPHER. 50 ML IV SCH ×2 (09:24→10:26)
[2019-07-31] MEDS: IV D5/ 0.9% NACL 1,000 ML IV PRN (09:44)
--- NOTE | 2019-07-31 10:45 | NUR ---
Called pt's sister Cassia, updated about pt status & POC including placement of HD catheter & initiation of HD procedure w/ verbalization of understanding.
--- NOTE | 2019-07-31 11:39 | NUR ---
FIO2 DECREASED FROM 60% TO 50% DUE TO 99% SPO2. NO SOB NOTED. Addendum: 07/31/19 at 1139 by EMMY TOLEDO RT Amended: Links added.
--- NOTE | 2019-07-31 12:40 | NUR ---
Pt seen & examined by MAYRA Bob, updated about pt status. Per FUNDRAISING ASSISTANT may do HIDA scan once pt is able.
--- NOTE | 2019-07-31 13:00 | NUR ---
Pt seen & examined by Dr. Vargas, updated about pt condition. ordered PICC line insertion d/t marginal BP. Verbal consent got from pt as well as telephone consent from pt's sister Cassia, placed in the chart. Nursing sup/CN made aware. Addendum: 07/31/19 at 1335 by DARION DUMAS RN Addendum: Dr. Vargas made aware that pt's R arm / R leg is swollen compare from his left. Per , may order US Doppler Exam.
--- NOTE | 2019-07-31 15:37 | NUR ---
S/P PICC line insertion by MAYRA Cid. Per Jose Roberto, no need for CXR to confirm placement.
--- NOTE | 2019-07-31 15:38 | NUR ---
Dr. Day made aware that PICC line was inserted as per Dr. Vargas's order. MD updated about SBP 90-100's, still waiting for HD Cath placement from Dr. Moran. Per , may start pt on Levophed drip and may give IV bolus NS 500 ccx1.
[2019-07-31] MEDS ORDERED: NOREPINEPHRINE 16 MG in IV D5W 500 ML IV PRN (16:00)
[2019-07-31] MEDS ORDERED: IV NS 0.9% 500 ML IV ONE (16:00)
[2019-07-31] MEDS ORDERED: HEPARIN SODIUM, PORCINE 5000 UNITS/1 ML VIAL IV STA (16:10)
--- NOTE | 2019-07-31 16:10 | NUR ---
Christophe NUNEZ updated about pt status. Tmax 100.7 this AM.
--- NOTE | 2019-07-31 16:45 | NUR ---
S/P HD Catheter placement c/o Dr. Moran on R femoral. Pt tolerated the procedure well. HD RN Jasper made aware that HD cath is in place.
--- NOTE | 2019-07-31 17:00 | NUR ---
Left again VM to US dept re: follow up on US abdomen order. Awaiting call back.
--- NOTE | 2019-07-31 18:40 | NUR ---
GREASE MAKER HEAD CLOSING NOTES: Pt resting comfortably on his bed at this time. Tolerating MV settings via trach w/ FiO2 60%, sating at 98%. Remains accelerated junctional on telemonitor. GT kept clamped d/t poss cholecystitis. FC to BSB, oliguric. IV line access kept patent & intact w/ no s/sx of infection/infiltration noted. TOM PICC Line w/ D5 1/2 NS x 30cc/hr infusing well, RFA G20 & RH G20 both SL. Ongoing HD c/o Ahmed. Safety precaution kept in place at all times w/ bed in lowest & locked pos. Call light placed w/in reach. Will endorse to PM RN for SALLY.
--- NOTE | 2019-07-31 19:00 | NUR ---
RN PT RECEIVED FROM AM SHIFT, CURRENTLY ON HD, HD NURSE AT BEDSIDE, PT ON VENT, NO SOB NOTED, F/C IN PLACE, IV FLUIDS ORDERED. CALL LIGHT WITHIN REACH, PT AFEBRILE, WILL CONTINUE TO MONITOR.
--- NOTE | 2019-07-31 19:22 | NUR ---
RN HD DONE, NO FLUIDS REMOVED, PT TOLERATED HD WELL, WILL CONTINUE TO MONITOR
[2019-07-31] MEDS: VANCOMYCIN 500 MG in IV D5W 100 ML IV PRN (19:38)
[2019-07-31] MEDS: MEROPENEM 500 MG in IV NS 0.9% 50 ML IV SCH (19:38)
--- NOTE | 2019-07-31 19:39 | NUR ---
RN POST HD VANCOMYCIN 500 MG INFUSING .
--- NOTE | 2019-07-31 20:47 | NUR ---
RN ABDOMINAL US DONE, PT COMPLAINED OF SEVERER ABDOMINAL PAIN AT THIS TIME 07/09, SPOKE TO MD NING HINTON, WITH NEW ORDER TO GIVE MORPHINE 2MG IVP Q 4HRS PRN, PT NPO DIAGNOSE, CHANGE KEPPRA 500 MG GT Q12HRS TO KEPPRA 500 MG IV Q 12HRS, TYLENOL 650 MG SUPP PRN, ZOFRAN 4MG IVP PRN, SPOKE TO PHARMACIST CHIEF PETROLEUM ENGINEER , VERIFIED IV DOSE, CHARGE NURSE ED MADE AWARE.
--- NOTE | 2019-07-31 20:50 | NUR ---
Received Pt trached ptx 7 cuffless on 840 Vent. No resp distress noted, tolerating settings. B/S rhonchi bilat. Pt is receiving Q6 breathing tx inline. Vent alarms set and audible. Ambu bag at bedside. Will continue to monitor. Addendum: 07/31/19 at 2051 by FRANCISCO VELEZ RT Amended: Links added.
[2019-07-31] MEDS: MORPHINE SULFATE INJ 2 MG/ML DISP.SYRIN IV PRN (21:00)
[2019-07-31] MEDS: SENNOSIDES 8.6 MG TABLET GT SCH (21:00)
[2019-07-31] MEDS ORDERED: ACETAMINOPHEN 650 MG/SUPP.RECT RC PRN (21:00)
[2019-07-31] MEDS ORDERED: LEVETIRACETAM (500MG) 500 MG/5 ML VIAL IV ONE (21:02)
[2019-07-31] MEDS: LEVETIRACETAM (500MG) 500 MG in IV NS 0.9% 100 ML IV SCH (21:06)
--- NOTE | 2019-07-31 21:45 | NUR ---
RN SPOKE TO AZUCENA IN RADIOLOGY, US ABDOMEN RESULTS STILL PENDING
[2019-08-01] VITALS (47 sets, daily range): BP systolic 111–157; BP diastolic 51–74
[2019-08-01] MEDS: ALBUTEROL FS 2.5 MG/0.5 ML VIAL.NEB NEB SCH ×4 (01:06→19:47)
[2019-08-01] MEDS: METOCLOPRAMIDE HCL 10 MG TABLET GT SCH (03:54)
[2019-08-01 04:29] LABS: BASOPHILS % (AUTO) 0.1 % (0.0-2.0); EOSINOPHILS % (AUTO) 0.1 % (0.0-6.0); HEMATOCRIT 22 % (39-51); HEMOGLOBIN 7.4 g/dL (13.5-17.5); LYMPHOCYTES # (AUTO) 0.4 /CMM (0.8-4.8); LYMPHOCYTES % (AUTO) 2.3 % (20.0-44.0); MEAN CORPUSCULAR HGB CONC 34 g/dl (31.0-36.0); MEAN CORPUSCULAR VOLUME 88 fL (80-96); MONOCYTES # (AUTO) 1.3 /CMM (0.1-1.30); MONOCYTES % (AUTO) 7.4 % (2.0-12.0); NEUTROPHILS # (AUTO) 16.2 /CMM (1.8-8.9); NEUTROPHILS % (AUTO) 90.1 % (43.0-81.0); PLATELET COUNT (AUTO) 246 /CMM (150-450)
[2019-08-01 04:44] LABS: BILIRUBIN,TOTAL 0.9 mg/dL (0.2-1.0); CALCIUM, SERUM 8.5 mg/dL (8.5-10.1); CREATININE 5.7 mg/dL (0.6-1.3); PHOSPHORUS 3.5 mg/dL (2.5-4.9); TOTAL PROTEIN, SERUM 6.9 g/dL (6.4-8.2)
[2019-08-01] MEDS: MORPHINE SULFATE INJ 2 MG/ML DISP.SYRIN IV PRN ×2 (04:47→23:44)
[2019-08-01 05:03] LABS: POTASSIUM 2.6 mmol/L (3.5-5.1)
[2019-08-01] MEDS: INSULIN REGULAR, HUMAN 100 UNIT/ML 3 ML VIAL SQ PRN ×3 (05:03→23:54)
[2019-08-01] MEDS: BLOOD SUGAR DIAGNOSTIC 1 EACH STRIP IN SCH ×4 (05:04→23:45)
--- NOTE | 2019-08-01 06:05 | NUR ---
RN SPOKE TO MD NING HINTON , AWARE OF AM LAB RESULTS, WITH NEW ORDER OF 40 MEQ KCL, CHARGE NURSE MADE AWARE.
[2019-08-01] MEDS: POTASSIUM CL. PREMIX PERIPHER. 50 ML IV SCH ×4 (06:20→09:33)
--- NOTE | 2019-08-01 08:31 | NUR ---
WHEEL TUNER NOTE RCVD PT DROWSY, ABLE TO FOLLOW COMMANDS, ACCELERATED JUNCTIONAL ON MONITOR, TOLERATING ORDERED VENT SETTINGS, NO SIGNS OF DISTRESS OBSERVED, NO SECRETIONS UPON SUCTIONING. G-TUBE PLACEMENT VERIFIED BY AUSCULTATION, PT NPO THIS AM PENDING SURGICAL CONSULT. CANNON TO GRAVITY DRAINING CLOUDY, URINE WITH SEDIMENT. IV SITES ON RUE C/D/I/PATENT, NO SIGNS OF INFILTRATION/PHLEBITIS OBSERVED UPON FLUSHING LINES. WILL CONTINUE TO MONITOR PT FOR SAFETY AND COMFORT, BED IN LOW AND LOCKED POSITION, CALL LIGHT WITHIN REACH, HEAD OF BED ELEVATED.
[2019-08-01] MEDS: LEVETIRACETAM (500MG) 500 MG in IV NS 0.9% 100 ML IV SCH ×2 (08:45→21:06)
[2019-08-01] MEDS: CHLORHEXIDINE GLUCONATE 15 ML UDC MM SCH (08:45)
[2019-08-01] MEDS: FAMOTIDINE (20 MG) 20 MG TABLET GT SCH (08:46)
[2019-08-01] MEDS: DOCUSATE SODIUM LIQ 100 MG/10 ML UDC GT SCH ×2 (08:46→21:06)
[2019-08-01] MEDS: FERROUS SULFATE UDC 300 MG/5 ML UDC GT SCH (08:46)
[2019-08-01] MEDS: FAMOTIDINE/PF INJ 20 MG/2 ML VIAL IV SCH (09:39)
[2019-08-01] MEDS ORDERED: METOCLOPRAMIDE HCL 10 MG/2 ML VIAL IV SCH (13:00)
[2019-08-01] MEDS ORDERED: METOCLOPRAMIDE HCL 10 MG/2 ML VIAL IV PRN (13:30)
--- NOTE | 2019-08-01 15:57 | NUR ---
LEGAL ACTIVITY ADJUDICATOR NOTE RCVD CALL FROM [facility] REGARDING PT'S URINE POSITIVE FOR MRSA. DR. MARTINEZ CONTACTED AND INFORMED, ISOLATION CART REQUESTED FROM THE CENTRAL SUPPLY DEPARTMENT.
--- NOTE | 2019-08-01 17:33 | NUR ---
RT END OF THE SHIFT REPORT, PT. 33 Y OLD MALE PT. RECEIVED @0700 AM TRACH'D PORTEX # [address] [facility]. VENT WITH NOTED AC MODE. NO VENT CHANGES DONE T/O DAY PT SUX'D MINIMAL ALMOST NO SECRETIONS. B/S FINE RALES BILATERALLY, EQUAL CHEST RISE NOTED. VENT IS PLUGGED INTO RED OUTLET. ALARMS ARE ON AND FUNCTIONAL. HME CHANGED,AMBU BAG AT BEDSIDE. WILL CONTINUE TO MONITOR. REPORT WILL PASS TO PM SHIFT. Addendum: 08/01/19 at 1737 by SHAWN CASTILLO RT Amended: Links added.
[2019-08-01] MEDS: ONDANSETRON HCL/PF 4 MG/2 ML VIAL IV PRN (17:43)
[2019-08-01] MEDS: VANCOMYCIN 500 MG in IV D5W 100 ML IV PRN (17:43)
[2019-08-01] MEDS: IV D5/ 0.9% NACL 1,000 ML IV PRN (18:22)
--- NOTE | 2019-08-01 18:35 | NUR ---
TELEGRAPH MESSENGER NOTE PT REMAINS AWAKE AND ALERT, SHOWING NO SIGNS OF DISTRESS/PAIN, TOLERATED DIALYSIS WELL, 2L REMOVED, VENT SETTINGS TOLERATED WELL, REMAINS ON ACCELERATED JUNCTIONAL ON MONITOR. CANNON TO GRAVITY DRAINING MADAN COLORED URINE WITH SEDIMENT. COMPLAINED OF NAUSEA TOWARDS THE END OF SHIFT WHICH WAS RELIEVED WITH ORAL CARE AND ZOFRAN. IV SITES C/D/I/PATENT, NO S/O INFILTRATION/PHLEBITIS OBSERVED UPON FLUSHING. RJ, VP BIOLOGY FOR ID UPDATED REGARDING PT'S HIGHEST TEMP OF 100.4 TODAY. NO NEW ORDERS RCVD. PT'S CARE WILL BE ENDORSED TO TOPLINE BEADING MACHINE TENDER RN FOR CONTINUITY OF CARE, BED IN LOW AND LOCKED POSITION, CALL LIGHT WITHIN REACH, HEAD OF BED ELEVATED.
[2019-08-01] MEDS: MEROPENEM 500 MG in IV NS 0.9% 50 ML IV SCH (19:31)
[2019-08-01] MEDS: SENNOSIDES 8.6 MG TABLET GT SCH (21:06)
[2019-08-01] MEDS: ACETAMINOPHEN 650 MG/20.3 ML UDC PO PRN (22:39)
[2019-08-02] VITALS (30 sets, daily range): BP systolic 145–175; BP diastolic 64–83
[2019-08-02] MEDS: ALBUTEROL FS 2.5 MG/0.5 ML VIAL.NEB NEB SCH ×4 (01:19→20:00)
[2019-08-02 04:23] LABS: BILIRUBIN,TOTAL 1.2 mg/dL (0.2-1.0); CALCIUM, SERUM 8.4 mg/dL (8.5-10.1); CREATININE 3.3 mg/dL (0.6-1.3); MAGNESIUM 2.5 mg/dL (1.8-2.4); PHOSPHORUS 2.6 mg/dL (2.5-4.9)
[2019-08-02 04:25] LABS: BASOPHILS % (AUTO) 0.1 % (0.0-2.0); HEMATOCRIT 24 % (39-51); LYMPHOCYTES # (AUTO) 0.7 /CMM (0.8-4.8); MEAN CORPUSCULAR HGB CONC 34 g/dl (31.0-36.0); MEAN CORPUSCULAR VOLUME 87 fL (80-96); MONOCYTES # (AUTO) 1.5 /CMM (0.1-1.30); MONOCYTES % (AUTO) 8.7 % (2.0-12.0); NEUTROPHILS # (AUTO) 14.7 /CMM (1.8-8.9); NEUTROPHILS % (AUTO) 87.2 % (43.0-81.0); PLATELET COUNT (AUTO) 271 /CMM (150-450); RED BLOOD CELL COUNT(AUTO) 2.69 MIL/uL (4.5-6.0); WHITE BLOOD COUNT (AUTO) 16.9 K/uL (4.3-11.0)
[2019-08-02 04:33] LABS: POTASSIUM 2.6 mmol/L (3.5-5.1)
--- NOTE | 2019-08-02 05:31 | NUR ---
CRITICAL LAB VALUE POTASSIUM 2.6, DR RIVERA VELEZ NOTIFIED, NO NEW ORDERS
[2019-08-02] MEDS: BLOOD SUGAR DIAGNOSTIC 1 EACH STRIP IN SCH ×3 (06:46→17:58)
[2019-08-02] MEDS: INSULIN REGULAR, HUMAN 100 UNIT/ML 3 ML VIAL SQ PRN ×3 (06:47→17:59)
--- NOTE | 2019-08-02 07:12 | NUR ---
FIRESTOPPER TECHNICIAN INITIAL NOTES: Rec'd pt on bed, not in any distress, A/O x 1, follows simple commands. On MV via trach, sating at 98%. Accelerated junctional on telemonitor. Has GT clamped at this time. Has FC draining to yellowish UOP. Has TOM PICC line w/ D5 1/2 NS x 30cc/hr infusing well, RFA G20 & RH G20 SL w/ no s/sx of infection/infiltration noted. R femoral HD cath in place w/ clean/dry/intact dressing. Safety precaution in place w/ bed in lowest & locked pos. Call light placed w/in reach. On isolation prec. Will continue to monitor & attend pt needs.
--- NOTE | 2019-08-02 09:00 | NUR ---
Pt seen & examined by Dr. Grover.
[2019-08-02] MEDS: ACETAMINOPHEN 650 MG/20.3 ML UDC PO PRN (09:02)
[2019-08-02] MEDS: CHLORHEXIDINE GLUCONATE 15 ML UDC MM SCH (09:02)
[2019-08-02] MEDS: FERROUS SULFATE UDC 300 MG/5 ML UDC GT SCH (09:02)
[2019-08-02] MEDS: DOCUSATE SODIUM LIQ 100 MG/10 ML UDC GT SCH ×2 (09:02→21:28)
--- NOTE | 2019-08-02 09:04 | NUR ---
Per Dr. Grover may switch Keppra IV via GT. Pharmacy made aware.
[2019-08-02] MEDS: LEVETIRACETAM SOL (5 ML) 100 MG/ML UDC GT SCH ×2 (09:26→21:28)
--- NOTE | 2019-08-02 10:40 | NUR ---
Pt seen & examined by Dr. Sybil Valles. 1200 Dr. Sybil Valles made aware that per Eduardo from [facility] we don't have available isotope at this time. They need to order and will notify ICU once it's available.
--- NOTE | 2019-08-02 11:40 | NUR ---
Pt seen & examined by Dr. Roy.
--- NOTE | 2019-08-02 14:55 | NUR ---
HD done c/o Maria Dolores FISCHER w/ 2L output. Pt tolerated the procedure well.
--- NOTE | 2019-08-02 16:00 | NUR ---
Pt brought to [facility] for HIDA scan procedure via bed, ACLS protocol. Secured verbal consent from patient.
--- NOTE | 2019-08-02 18:30 | NUR ---
Pt seen & examined by MAYRA Saeed updated about pt condition.
--- NOTE | 2019-08-02 18:53 | NUR ---
DELIVERY AIDE CLOSING NOTES: Pt resting comfortably on his bed at this time. Tolerating MV settings via trach w/ FiO2 40%, sating at 98%. Remains accelerated junctional on telemonitor. GT kept clamped. FC to BSB w/ adequate yellowish UOP. IV line access kept patent & intact w/ no s/sx of infection/infiltration noted. TOM PICC Line w/ D5 1/2 NS x 30cc/hr infusing well, RFA G20 & RH G20 both SL. Safety precaution kept in place at all times w/ bed in lowest & locked pos. Isolation prec observed at all times. Call light placed w/in reach. Will endorse to PM RN for SALLY. Called [facility] twice regarding pt's SBP running >170's. Awaiting call back from Dr. Son & Dr. Grover. Addendum: 08/02/19 at 1902 by DARION DUMAS RN Addendum: Rec'd call back from Dr. Grover re: BP meds. Per , he will put orders.
[2019-08-02] MEDS: AMLODIPINE BESYLATE 5 MG TABLET PO SCH (19:29)
--- NOTE | 2019-08-02 19:29 | NUR ---
NM HIDA SCAN WAS COMPLETED. TECH:RB
--- NOTE | 2019-08-02 19:45 | NUR ---
ICU/INSIDE STEWARD/STEWARDESS RECEIVED REPORT FROM DAY SHIFT NURSE. SEE FLOWSHEET FOR ASSESSMENT, WELL SKIN ISSUES WHICH ARE ADDRESSED ALONG WITH INTERVENTIONS TO EACH. PT HAS TRACH. PT IS ALERT X2. PT HAS IV'S WHICH ARE ADDRESSED ON IV SPREAD SHEET. PT WAS TURNED AND REPOSITIONED FOR COMFORT AND CARE, WILL CONTINUE TO MONITOR THIS PT. NO ACUTE DISTRESS SEEN AT THIS TIME.
[2019-08-02] MEDS: MEROPENEM 500 MG in IV NS 0.9% 50 ML IV SCH (20:00)
--- NOTE | 2019-08-02 21:00 | NUR ---
ICU/PHOTONICS ENGINEERING TECHNICIAN PT WENT DOWN FOR HIDA SCAN WITH CHARGE NURSE, RT BRIE, AND RADIOLOGIST TECH. IT'S SECOND ONE IN SERIES.
[2019-08-02] MEDS: SENNOSIDES 8.6 MG TABLET GT SCH (21:28)
--- NOTE | 2019-08-02 21:40 | NUR ---
ICU/TURPENTINE FARMER PT BACK FROM HIDA SCAN, PT PLACED BACK INTO ROOM AND PLACED ON MONITOR AND IVF. PT WAS THEN TURNED AND REPOSITIONED FOR COMFORT AND CARE. WILL MONITOR THIS PT AND LOOK FOR PENDING RESULTS.
--- NOTE | 2019-08-02 22:00 | NUR ---
ICU/DRINK WAITER PT IS GIVEN ORAL CARE, ALONG WITH PM CARE. PT TOLERATED BOTH OF THESE WELL. PT REMAINS ON CURRENT VENT SETTINGS,WITH SATURATION AT 100%. PT WAS TURNED AND REPOSITIONED FOR COMFORT AND CARE. NO ACUTE DISTRESS SEEN AT THIS TIME. WILL CONTINUE TO MONITOR THIS PT.
[2019-08-02] MEDS: MORPHINE SULFATE INJ 2 MG/ML DISP.SYRIN IV PRN (23:19)
--- NOTE | 2019-08-02 23:30 | NUR ---
ICU/SUPERVISOR TRAVEL INFORMATION CENTER PT WAS GIVEN IVP 2MG MORPHINE FOR FLACC PAIN SCALE OF 8-10/10. PT HAD INCREASED BLOOD PRESSURE OF 172/83. PT WAS TUNED AND REPOSITIONED FOR COMFORT AND CARE, WILL MONITOR THIS PT'S PAIN ALONG WITH INCREASED BLOOD PRESSURE.
[2019-08-03] VITALS (12 sets, daily range): BP systolic 154–170; BP diastolic 72–83
[2019-08-03] MEDS: BLOOD SUGAR DIAGNOSTIC 1 EACH STRIP IN SCH ×4 (00:24→18:41)
[2019-08-03] MEDS: INSULIN REGULAR, HUMAN 100 UNIT/ML 3 ML VIAL SQ PRN ×3 (00:25→18:40)
--- NOTE | 2019-08-03 00:25 | NUR ---
ICU/FIELD AIDE PT'S MIDNIGHT ACCU CHECK BLOOD SUGAR IS 169. THIS WAS COVERAGE WITH 3 UNITS REGULAR INSULIN PER MD ORDERS. WILL CONTINUE TO MONITOR THE SUGARS PER HOSPITAL POLICY AND MD'S ORDERS. PT WAS TURNED AND REPOSITIONED FOR COMFORT AND CARE.
[2019-08-03] MEDS: ALBUTEROL FS 2.5 MG/0.5 ML VIAL.NEB NEB SCH ×4 (01:46→19:34)
--- NOTE | 2019-08-03 02:00 | NUR ---
ICU/CIGAR HEAD HOLER PT IS GIVEN ORAL CARE, ALONG WITH AM CARE. PT TOLERATED BOTH OF THESE WELL. PT REMAINS ON CURRENT VENT SETTINGS,WITH SATURATION AT 100%. PT WAS TURNED AND REPOSITIONED FOR COMFORT AND CARE. NO ACUTE DISTRESS SEEN AT THIS TIME. WILL CONTINUE TO MONITOR THIS PT.
[2019-08-03 04:33] LABS: BASOPHILS % (AUTO) 0.1 % (0.0-2.0); EOSINOPHILS % (AUTO) 0.5 % (0.0-6.0); HEMATOCRIT 25 % (39-51); HEMOGLOBIN 8.4 g/dL (13.5-17.5); LYMPHOCYTES # (AUTO) 0.8 /CMM (0.8-4.8); LYMPHOCYTES % (AUTO) 4.6 % (20.0-44.0); MEAN CORPUSCULAR HGB CONC 34 g/dl (31.0-36.0); MEAN CORPUSCULAR VOLUME 89 fL (80-96); MONOCYTES # (AUTO) 1.8 /CMM (0.1-1.30); MONOCYTES % (AUTO) 10.3 % (2.0-12.0); NEUTROPHILS # (AUTO) 15.1 /CMM (1.8-8.9); NEUTROPHILS % (AUTO) 84.5 % (43.0-81.0); PLATELET COUNT (AUTO) 277 /CMM (150-450); RED BLOOD CELL COUNT(AUTO) 2.81 MIL/uL (4.5-6.0); WHITE BLOOD COUNT (AUTO) 17.9 K/uL (4.3-11.0)
--- NOTE | 2019-08-03 04:35 | NUR ---
ICU/TECHNICAL COORDINATOR PT WAS GIVEN IVP 2MG MORPHINE FOR FLACC PAIN SCALE OF 8-10/10. PT HAD INCREASED BLOOD PRESSURE OF 170/77. PT WAS TUNED AND REPOSITIONED FOR COMFORT AND CARE, WILL MONITOR THIS PT'S PAIN ALONG WITH INCREASED BLOOD PRESSURE
[2019-08-03] MEDS: MORPHINE SULFATE INJ 2 MG/ML DISP.SYRIN IV PRN ×2 (04:43→12:03)
[2019-08-03] MEDS: ACETAMINOPHEN 650 MG/20.3 ML UDC PO PRN ×2 (04:44→12:03)
--- NOTE | 2019-08-03 04:45 | NUR ---
ICU/RADIOLOGICAL ENGINEER PT FELT WARM TO TOUCH, TYLENOL 650 MG VIA G/TUBE WAS GIVEN FOR THIS. WILL CONTINUE TO MONITOR THIS PT.
[2019-08-03 04:46] LABS: BILIRUBIN,TOTAL 1.7 mg/dL (0.2-1.0); CALCIUM, SERUM 9.1 mg/dL (8.5-10.1); CREATININE 2.5 mg/dL (0.6-1.3); MAGNESIUM 2.4 mg/dL (1.8-2.4); PHOSPHORUS 2.5 mg/dL (2.5-4.9); TOTAL PROTEIN, SERUM 6.7 g/dL (6.4-8.2)
[2019-08-03 05:04] LABS: POTASSIUM 2.8 mmol/L (3.5-5.1)
--- NOTE | 2019-08-03 05:14 | NUR ---
ICU/J2EE ANDROID DEVELOPER CRITICAL LAB OF 2.8 POTASSIUM, CALLED MD JEAN BAPTISTE FOR THIS. POTASSIUM 40 MEQ VIA G/TUBE WAS RECEIVED FOR THIS. ALL ORDERS WERE PLACED AND CARRIED OUT.
[2019-08-03] MEDS: IV D5/ 0.9% NACL 1,000 ML IV PRN (05:25)
[2019-08-03] MEDS ORDERED: POTASSIUM CHLORIDE 20 MEQ POWDER PACKET GT ONE (05:30)
--- NOTE | 2019-08-03 05:50 | NUR ---
ICU/SPORTS UMPIRE REPORT GIVEN TO REGINALDO NURSE
--- NOTE | 2019-08-03 06:00 | NUR ---
ICU/WARP KNIT OPERATOR PT TRANSFERRED TO REGINALDO WITH RT
--- NOTE | 2019-08-03 06:05 | NUR ---
INSIGHTS ANALYST NOTE RECEIVED PT FROM ICU WITH ACLS PROTOCOL, REPORT RECEIVED FROM NURSE HERR. PT CAME IN BED WITH AMBU BAG ATTACHED NURSE AND RT AT BED SIDE. PT IS ALERT x 1-2, ON VENT/TRACH CUFFLESS PORTEX # 7, AC 16 TV 500 FIO2 40% PEEP 0. NO DISTRESS OR DISCOMFORT NOTED. DENIES PAIN. GT INTACT AND PATENT, CLAMPED. PT IS NPO EXCEPT MEDS. SKIN INTACT. SL RFA AND RT HAND #20 G INTACT AND PATENT. PICC LINE TOM TRIPLE LUMEN INTACT AND PATENT. IVF D5NS INFUSING AT 30 ML/HR, NO S/S OF INFILTRATIN NOTED. KEPT HOB ELEVATED. ON TELE MONITOR SINUS TACH HR 105. F/C INTACT AND PATENT DRAINING YELLOWISH COLOR URINE. SIDE RAILS UP X 3 AND CALL LIGHT WITHIN REACH. PT IN ISOLATION FOR MRSA URINE. WILL ENDORSE TO DAY SHIFT NURSE FOR CONTINUE TO MONITOR.
--- NOTE | 2019-08-03 07:30 | NUR ---
RN AM SHIFT NOTE PATIENT IN BED SIDE RAILS UP, SAFETY MEASURES IN PLACE. CALL LIGHT WITHIN REACH. HEAD OF BED ELEVATED 45 DEGREES, IV PATENT AND INTACT, CANNON CATH DRAINING WELL, VENTIATOR FUNCTIONING PROPERLY, VITALS WNL, BP SLIGHLTY ELEVATED WILL ADMINISTER MEDICATION PER MD ORDERS. NO SIGNS AND SYMPTOMS OF PAIN OR DISCOMFORT NOTED. ALL NEEDS MET AT THIS TIME.
[2019-08-03] MEDS: AMLODIPINE BESYLATE 5 MG TABLET PO SCH (08:28)
[2019-08-03] MEDS: FERROUS SULFATE UDC 300 MG/5 ML UDC GT SCH (08:28)
[2019-08-03] MEDS: DOCUSATE SODIUM LIQ 100 MG/10 ML UDC GT SCH ×2 (08:28→21:34)
[2019-08-03] MEDS: CHLORHEXIDINE GLUCONATE 15 ML UDC MM SCH (08:28)
[2019-08-03] MEDS: LEVETIRACETAM SOL (5 ML) 100 MG/ML UDC GT SCH ×2 (08:28→21:34)
[2019-08-03] MEDS: FAMOTIDINE/PF INJ 20 MG/2 ML VIAL IV SCH (08:51)
[2019-08-03] MEDS: POTASSIUM CL. PREMIX PERIPHER. 50 ML IV SCH ×4 (10:33→15:19)
[2019-08-03] MEDS ORDERED: EPOETIN ALFA (10,000 UNIT) 10,000 UNIT/ML VIAL SQ SCH (11:00)
[2019-08-03] MEDS ORDERED: VANCOMYCIN 1 GM in IV D5W 250 ML IV ONE (15:00)
--- NOTE | 2019-08-03 17:39 | NUR ---
RN NOTE ENEIDA VELEZ RN CALLED MD TO INFORM THE RESULTS FROM HIDA SCAN ARE BACK, RADIOLOGY IS UNABLE TO VISUALIZE SCAN ON THEIR END MD VELEZ MAY INTERPRET RESULTS PER REQUEST OF RADIOLOGY DEPARTMENT TODAY. RN WILL KEEP PATIET NPO PER MD ORDERS AT THIS TIME. RN REQUEST VANCO TROPH TO BE DONE THIS AM, RESULTS WERE LOW 9. PHARMACY INITIATED IV VANCO PER MD ORDERS.
--- NOTE | 2019-08-03 19:30 | NUR ---
SEISMOGRAPHER OPENING NOTE, RECEIVED PATIENT IN BED SLEEPING, IV TOM#20 AND RU HAND #20, PATENT AND INTACT, TOM PICC. CANNON CATH DRAINING WELL, VENTILATOR FUNCTIONING PROPERLY, NO SIGNS AND SYMPTOMS OF PAIN OR DISCOMFORT NOTED AT THIS TIME. SIDE RAILS UP, SAFETY MEASURES IN PLACE. CALL LIGHT WITHIN REACH. HEAD OF BED ELEVATED 45 DEGREES, WILL CONTINUE TO MONITOR
[2019-08-03] MEDS: MEROPENEM 500 MG in IV NS 0.9% 50 ML IV SCH (19:54)
[2019-08-03] MEDS: SENNOSIDES 8.6 MG TABLET GT SCH (21:34)
[2019-08-04] VITALS: BP 164/87
[2019-08-04] MEDS: MORPHINE SULFATE INJ 2 MG/ML DISP.SYRIN IV PRN ×3 (00:05→14:51)
[2019-08-04] MEDS: BLOOD SUGAR DIAGNOSTIC 1 EACH STRIP IN SCH ×4 (00:17→17:46)
[2019-08-04] MEDS: ALBUTEROL FS 2.5 MG/0.5 ML VIAL.NEB NEB SCH ×4 (01:37→19:26)
--- NOTE | 2019-08-04 03:30 | NUR ---
PROGRAMMING DIRECTOR NOTE PATIENTS TEMP IS 100.4, NO SOB, NO RESP. DISTRESS AT THIS TIME. 650 MG OF TYLENOL ADMINISTERED. WILL CONTINUE TO MONITOR.
[2019-08-04] MEDS: ACETAMINOPHEN 650 MG/20.3 ML UDC PO PRN (03:37)
[2019-08-04 04:00] VITALS: BP 163/86
--- NOTE | 2019-08-04 06:30 | NUR ---
MS RN NOTES, PATIENTS BS IS 193 AND PATIENT IS NPO FOR LAB LISSETT IN THE MORNING. PER MIRNA, CHARGE NURSE I DID NOT ADMINISTER ANY INSULIN.
[2019-08-04 07:10] LABS: CALCIUM, SERUM 8.8 mg/dL (8.5-10.1); CREATININE 2.7 mg/dL (0.6-1.3); POTASSIUM 3.4 mmol/L (3.5-5.1)
--- NOTE | 2019-08-04 07:27 | NUR ---
APPLICATIONS ANALYST CLOSING NOTE, PATIENT IN BED SLEEPING, IV TOM#20 AND RU HAND #20, PATENT AND INTACT, TOM PICC. CANNON CATH DRAINING WELL, VENTILATOR FUNCTIONING PROPERLY, NO SIGNS AND SYMPTOMS OF PAIN OR DISCOMFORT NOTED AT THIS TIME. PATIENT WILL HAVE A LAPAROSCOPY CHOLECYSTECTOMY SURGERY THIS MORNING. SIDE RAILS UP, SAFETY MEASURES IN PLACE. CALL LIGHT WITHIN REACH. HEAD OF BED ELEVATED 45 DEGREES, WILL ENDORSE THE PATIENT TO AM RN FOR SALLY.
--- NOTE | 2019-08-04 07:30 | NUR ---
FRONTEND ENGINEER AM NOTES: RECEIVED PATIENT IN BED SLEEPING, WITH PORTEX 7 TRACH TO MECHANICAL VENT WITH SETTINGS ORDERED. TOELRATING WELL. AC 16 TV 500 FIO2 40% PEEP 0. BREATHING EVEN AND UNLABORED. ST HR 108 ON TELE MONITOR. DENIES PAIN AT THIS TIME. TOM#20 AND RU HAND #20, BOTH FLUSHES WELL BOTH SITES CLEAR, TOM PICC LINE, CDI DRESSING, WITH D5NS AT 30 ML/HR, SITE CLEAR. CANNON CATH DRAINING WELL, NO SKIN ISSUES. NPO FOR NOW EXCEPT MEDS. WILL TURN AND REPOSITION Q 2HOURS. SIDE RAILS UP, SAFETY MEASURES IN PLACE. CALL LIGHT WITHIN REACH. HEAD OF BED ELEVATED 45 DEGREES, WILL CONTINUE TO MONITOR
[2019-08-04 08:00] VITALS: BP 162/88
--- NOTE | 2019-08-04 09:30 | NUR ---
MARKET INVESTIGATOR NOTES DUE MEDS GIVEN
[2019-08-04] MEDS: LEVETIRACETAM SOL (5 ML) 100 MG/ML UDC GT SCH ×2 (09:33→20:47)
[2019-08-04] MEDS: DOCUSATE SODIUM LIQ 100 MG/10 ML UDC GT SCH ×2 (09:33→20:47)
[2019-08-04] MEDS: FERROUS SULFATE UDC 300 MG/5 ML UDC GT SCH (09:33)
[2019-08-04] MEDS: CHLORHEXIDINE GLUCONATE 15 ML UDC MM SCH (09:33)
[2019-08-04] MEDS: AMLODIPINE BESYLATE 5 MG TABLET PO SCH (09:35)
[2019-08-04] MEDS: CEFEPIME 1 GM in IV D5W 50 ML IV SCH (09:54)
[2019-08-04 12:00] VITALS: BP 181/92
[2019-08-04] MEDS ORDERED: POTASSIUM CL. PREMIX PERIPHER. 50 ML IV SCH (13:00)
[2019-08-04] MEDS: POTASSIUM CL. PREMIX PERIPHER. 50 ML IV SCH ×2 (13:05→14:46)
[2019-08-04] MEDS: IV D5/ 0.9% NACL 1,000 ML IV PRN (13:05)
[2019-08-04] MEDS: INSULIN REGULAR, HUMAN 100 UNIT/ML 3 ML VIAL SQ PRN (13:39)
[2019-08-04] MEDS: NITROGLYCERIN 30 GM TUBE TP SCH ×2 (14:50→20:47)
[2019-08-04 16:00] VITALS: BP 167/86
[2019-08-04] MEDS ORDERED: FENTANYL PF 250MCG/5ML AMPUL ONE (18:02)
[2019-08-04] MEDS ORDERED: MIDAZOLAM HCL 2 MG/2ML VIAL ONE (18:02)
[2019-08-04] MEDS ORDERED: FAMOTIDINE/PF INJ 20 MG/2 ML VIAL IV ONE (18:03)
[2019-08-04] MEDS ORDERED: ROCURONIUM BROMIDE 50 MG/5 ML ONE (18:03)
--- NOTE | 2019-08-04 18:15 | NUR ---
ATMOSPHERIC TECHNICIAN NOTES PATIENT PICKED UP FOR SCHEDULED SURGERY.
[2019-08-04] MEDS ORDERED: LIDOCAINE 1% INJ 50 ML MDV IJ ONE (18:17)
--- NOTE | 2019-08-04 19:12 | NUR ---
ASSISTANT PROFESSOR OF MARINE BIOLOGY NOTES REPORT GIVEN TO LUKASZ. PATIENT STILL IN SURGERY. IF HD DONE, NEEDS TO GIVE VANCOMYCIN POST HD.
[2019-08-04 20:00] VITALS: BP 130/64
--- NOTE | 2019-08-04 20:30 | NUR ---
RN NOTES PATIENT CAME BACK FROM OPERATING ROOM S/P LAP CHOLECYSTECTOMY WITH 3 SURGICAL SITE ON ABDOMEN AND JOSE MARTIN DRAIN ON HIS RIGHT ABDOMEN WITH SANGUINEOUS OUTPUT. PATIENT STILL SEDATED, TRACH AND VENT CONNECTED BY RT. GT INTACT AND PATENT WITH ZERO RESIDUAL. IV D5 NS CONNECTED, NGT ON RIGHT NARES CONNECTED TO LIS MD ORDERED WITH NO OUTPUT. O.R NURSE AT BEDSIDE MONITORING PATIENT STATUS. DUE MEDICINE GIVEN ORDERED. SBP ON 160'S AND 170'S. CANNON CATH KEPT OFF FROM THE FLOOR WITH YELLOWISH COLOR URINE. KEPT PT CLEAN AND DRY. WILL CONTINUE TO MONITOR.
[2019-08-04] MEDS: SENNOSIDES 8.6 MG TABLET GT SCH (21:02)
--- NOTE | 2019-08-04 22:30 | NUR ---
RN NOTES 22:25 PM - DIALYSIS STARTED. PATIENT IS MORE AROUSABLE, DENIES PAIN. WILL CONTINUE TO MONITOR.
[2019-08-05] VITALS: BP 149/87
--- NOTE | 2019-08-05 00:10 | NUR ---
RN NOTES DIALYSIS DONE REMOVED 1.4 LITERS FLUIDS PER DIALYSIS NURSE. PATIENT TOLERATED IT WELL. AFEBRILE. VSS. WILL CONTINUE TO MONITOR.
[2019-08-05] MEDS: BLOOD SUGAR DIAGNOSTIC 1 EACH STRIP IN SCH ×5 (00:52→23:42)
[2019-08-05] MEDS: INSULIN REGULAR, HUMAN 100 UNIT/ML 3 ML VIAL SQ PRN ×4 (01:22→23:43)
[2019-08-05] MEDS: ALBUTEROL FS 2.5 MG/0.5 ML VIAL.NEB NEB SCH ×4 (01:26→19:37)
[2019-08-05] MEDS: MORPHINE SULFATE INJ 2 MG/ML DISP.SYRIN IV PRN ×3 (01:32→19:01)
[2019-08-05] MEDS: VANCOMYCIN 500 MG in IV D5W 100 ML IV PRN (02:10)
[2019-08-05] MEDS: NITROGLYCERIN 30 GM TUBE TP SCH ×4 (02:15→20:32)
[2019-08-05 04:00] VITALS: BP 151/73
[2019-08-05 06:51] LABS: BILIRUBIN,TOTAL 1.2 mg/dL (0.2-1.0); CALCIUM, SERUM 8.4 mg/dL (8.5-10.1); CREATININE 2.3 mg/dL (0.6-1.3); POTASSIUM 4.2 mmol/L (3.5-5.1); TOTAL PROTEIN, SERUM 6.9 g/dL (6.4-8.2)
--- NOTE | 2019-08-05 07:20 | NUR ---
RN OPENING NOTES PT IS ASLEEP IN BED IN SEMI BRANDT POSITION WITH NO OBVIOUS SIGNS OF RESPIRATORY DISTRESS NOTED AT THIS TIME. SPO2 100% VENT SETTING ARE AC16 TV500 FIO2 40% PEEP 6. PT HAS FLUIDS RUNNING AT 30 MLS/HR OF D5 1/2 NS. CANNON DRAINING TO GRAVITY CLEAR YELLOW URINE. REPORT RECEIVED FROM SHANK STITCHER RN WILL CONTINUE TO MONITOR.
[2019-08-05 08:00] VITALS: BP 147/73
--- NOTE | 2019-08-05 08:56 | NUR ---
RT PATIENT RECEIVED ON PORTEX #7 CUFFLESS ON [facility] VENT WITH SETTINGS PER MD ORDER. COLD ROLL CATCHER DONE. ALARMS ON AND AUDIBLE. SPARE TRACH AND AMBU BAG PLACED AT BEDSIDE. SUCTIONED SMALL AMOUNTS OF THICK, MCCLOUD SECRETIONS. VENT PLUGGED INTO RED OUTLET. TX GIVEN ORDERED. NO ADVERSE EFFECTS OBSERVED. NO SOB OR SIGNS OF DISTRESS NOTED AT THIS TIME. WILL CONTINUE TO MONITOR CLOSELY. Addendum: 08/05/19 at 0956 by RAYMUNDO DICKERSON RT Amended: Links added.
[2019-08-05] MEDS: FERROUS SULFATE UDC 300 MG/5 ML UDC GT SCH (08:57)
[2019-08-05] MEDS: CEFEPIME 1 GM in IV D5W 50 ML IV SCH (08:58)
[2019-08-05] MEDS: LEVETIRACETAM SOL (5 ML) 100 MG/ML UDC GT SCH ×2 (08:58→20:21)
[2019-08-05] MEDS: FAMOTIDINE/PF INJ 20 MG/2 ML VIAL IV SCH (08:58)
[2019-08-05] MEDS: CHLORHEXIDINE GLUCONATE 15 ML UDC MM SCH (08:58)
[2019-08-05] MEDS: DOCUSATE SODIUM LIQ 100 MG/10 ML UDC GT SCH ×2 (08:58→20:21)
[2019-08-05] MEDS: AMLODIPINE BESYLATE 5 MG TABLET PO SCH (08:58)
[2019-08-05 12:00] VITALS: BP 160/75
[2019-08-05 16:00] VITALS: BP 173/81
--- NOTE | 2019-08-05 19:30 | NUR ---
SWIMMING TEACHER OPENING NOTES RECEIVED PATIENT ALERT AND ORIENTED X3 , NO SIGNS OF DISTRESS OR DISCOMFORT. PATIENT ON VENT WITH PORTEX #7, AC 16, TV 500, FIO2 40%, AND PEEP 6 TOLERATING WELL. PATIENT ON TELE MONITOR SINUS TACHY HR 107. HAS CANNON CATH AND DRAINING WELL. PATIENT HAS PICC LINE ON TOM PATENT AND FLUSHING WELL. D/C NG TUBE AND WILL BEGIN G-TUBE FEEDINGS ORDERED. SAFETY MEASURES APPLIED, CALL LIGHT WITH IN REACH AND SIDE RAILS UP X2. WILL CONTINUE TO MONITOR.
--- NOTE | 2019-08-05 19:47 | NUR ---
RN CLOSING NOTES PT IN BED O2 SATURATION AT 100% TOLERATING VENT SETTINGS WELL. REPORT GIVEN TO JACKER RN FOR CONTINUATION OF CARE. NO ACUTE CHANGES DURING DAY SHIFT. JOSE MARTIN DRAIN 75 ML/OUT PUT.
--- NOTE | 2019-08-05 19:58 | NUR ---
RT NOTE PT RECEIVED ON [facility] VENT ON THE FOLLOWING NOTED SETTINGS. PT SX'D, SMALL, THICK PINK TINGED SECRETIONS NOTED. NO RESP DISTRESS NOTED. BREATHING TX GIVEN, NO ADVERSE REACTIONS NOTED. VENT PLUGGED INTO RED OUTLET. ALARMS ARE ON AND AUDIBLE. AMBU BAG AND SPARE TRACH ARE AT BEDSIDE. WILL CONT TO MONITOR PT. Addendum: 08/05/19 at 1959 by TERRIE HOOPER RT Amended: Links added.
[2019-08-05 20:00] VITALS: BP 162/85
[2019-08-05] MEDS: FLUCONAZOLE IN NS 100 MG in PREMIX 1 EA IV SCH ×2 (20:20)
[2019-08-05] MEDS: SENNOSIDES 8.6 MG TABLET GT SCH (21:58)
[2019-08-05] MEDS: MEROPENEM 500 MG in IV NS 0.9% 50 ML IV SCH (21:58)
[2019-08-05] MEDS: NEPRO 1,000 ML BOTTLE GT PRN (22:03)
[2019-08-06] MEDS: MORPHINE SULFATE INJ 2 MG/ML DISP.SYRIN IV PRN (00:24)
[2019-08-06] MEDS: ALBUTEROL FS 2.5 MG/0.5 ML VIAL.NEB NEB SCH ×4 (01:07→19:36)
[2019-08-06 01:12] VITALS: BP 168/82
--- NOTE | 2019-08-06 01:12 | NUR ---
BUFFING MACHINE OPERATOR NOTE: PATIENT'S BP WAS HIGH 186/89. MORPHINE PRN GIVEN ORDERED. BP RECHECKED AND IT WENT DOWN TO 162/82. DR. MARTINEZ NOTIFIED WITH ORDER OF NITROPASTE 2INCHES EVERY 6HRS, HOLD IF SBP <170. READBACK COMPLETED AND VERIFIED BY MD. ORDER CARRIED OUT. WILL CONTINUE TO MONITOR PT.
[2019-08-06] MEDS: NITROGLYCERIN 30 GM TUBE TP SCH ×4 (01:52→20:38)
[2019-08-06 04:00] VITALS: BP 187/87
[2019-08-06] MEDS ORDERED: ENALAPRILAT DIHYD. (2.5MG/ML) 1.25 MG/ML VIAL IV PRN (05:30)
--- NOTE | 2019-08-06 05:30 | NUR ---
AUTOCAD DETAILER NOTE: NITROPASTE GIVEN ORDERED, HOWEVER, PATIENT'S BP STILL HIGH 187/87. RECHECKED BP 172/90. DR. MARTINEZ MADE AWARE WITH NEW ORDER OF VASOTEC 1.25MG IV Q6HRS PRN FOR SBP >170. ORDER CARRIED OUT. WILL GIVE MEDICATION ORDERED.
[2019-08-06] MEDS: IV D5/ 0.9% NACL 1,000 ML IV PRN (05:52)
[2019-08-06] MEDS: BLOOD SUGAR DIAGNOSTIC 1 EACH STRIP IN SCH ×3 (05:52→17:12)
[2019-08-06] MEDS: INSULIN REGULAR, HUMAN 100 UNIT/ML 3 ML VIAL SQ PRN ×3 (05:53→18:11)
[2019-08-06] MEDS ORDERED: ENALAPRILAT INJ (1.25 MG/ML) 1.25 MG/ML VIAL IV ONE (06:21)
[2019-08-06] MEDS: ENALAPRILAT DIHYD. (2.5MG/ML) 1.25 MG/ML VIAL IV PRN ×2 (06:24→11:34)
--- NOTE | 2019-08-06 07:21 | NUR ---
CASTING HOUSE LABORER CLOSING NOTES NO ACUTE DISTRESS NOTED AT THIS TIME. ON [facility] VENT SETTING ORDERED NO SOB NOTED. SINUS TACH ON THE MONITOR HR 102. JOSE MARTIN DRAINAGE 25ML OUT. CANNON CATHETER INTACT DRAIN 800ML OF URINE OUTPUT. GT INTACT NEPRO FEEDING INCREASED TO 30ML/HR, PATIENT ABLE TO TOLERATE WELL NO RESIDUAL NOTED. KEPT CLEAN, DRY, AND COMFORTABLE ENDORSED TO DAY SHIFT RN FOR CONTINUED OF CARE.
[2019-08-06 08:00] VITALS: BP 184/90
[2019-08-06] MEDS: CHLORHEXIDINE GLUCONATE 15 ML UDC MM SCH (08:22)
[2019-08-06] MEDS: LEVETIRACETAM SOL (5 ML) 100 MG/ML UDC GT SCH ×2 (08:22→21:29)
[2019-08-06] MEDS: DOCUSATE SODIUM LIQ 100 MG/10 ML UDC GT SCH ×2 (08:22→21:29)
[2019-08-06] MEDS: FERROUS SULFATE UDC 300 MG/5 ML UDC GT SCH (08:22)
[2019-08-06] MEDS: AMLODIPINE BESYLATE 5 MG TABLET PO SCH (08:23)
[2019-08-06] MEDS: MEROPENEM 500 MG in IV NS 0.9% 50 ML IV SCH ×2 (08:26→21:29)
--- NOTE | 2019-08-06 09:51 | NUR ---
rn notes received patient from rn earlier. he is awake, alert, communicates by gestures. remains on trache to vent, on ac mode. GT feedings ongoing, no residuals noted. IVF infusing via RUE PICC line. JOSE MARTIN drain noted, IFC with yellow colored urine draining to bag.lap sites noted dry. patient repositioned. Dr. Treadwell made rounds and he was informed of patient BP, MD With orders .continue monitor patient status
[2019-08-06 12:00] VITALS: BP 174/83
--- NOTE | 2019-08-06 15:32 | NUR ---
PT RECEIVED TRACHED ON MECHANICAL VENT W/ NOTED SETTINGS. VENT IN RED OUTLET, AMBUBAG AT BEDSIDE, VENT ALARMS CHECKED AND AUDIBLE. PT SX'ED AND LAVAGED PRN. BREATH SOUNDS EQUAL, DIMINISHED. HHN MEDS GIVEN INLINE W/ NO ADVERSE REACTIONS. TRACH TUBE SECURED, CLEAN, DRY, PATENT. NO RESP DISTRESS NOTED. PLAN IS TO CONTINUE CARE UNDER CURRENT MD ORDERS AND MONITOR FOR CHANGES. Addendum: 08/06/19 at 1533 by TOMMIE FARRAR RT Amended: Links added.
[2019-08-06 16:00] VITALS: BP 160/81
--- NOTE | 2019-08-06 18:47 | NUR ---
rn notes 1300-patient awake, alert. denies pain, remains on ac mode. accuchecks done, insulin administered as ordered. GT feedings ongoing, no residuals noted. 1700-SBP < 170 mmHg this time. he denies pain, GT feedings ongoing this time. accucehcks done, insulin coverage administered as ordered.family visited him earlier.
--- NOTE | 2019-08-06 19:15 | NUR ---
ENGLISH TEACHER OPENING NOTES RECEIVED PATIENT IN BED, AWAKE, A/OX2. PATIENT ON VENT WITH PORTEX #7, AC 16, TV 500, FIO2 40%, AND PEEP 0, TOLERATING WELL, SATURATING 100%. DENIES ANY PAIN AT THE MOMENT. PATIENT ON TELE MONITOR SINUS TACHY HR 100S. HAS CANNON CATH OFF THE FLOOR AND DRAINING WELL. PATIENT HAS PICC LINE ON TOM PATENT AND FLUSHING WELL, IV FLUIDS RUNNING ORDERED. RIGHT WRIST 20G FLUSHING AND PATENT, SITE C/D/I. RIGHT FEMORAL HD CATH NOTED, SITE C/D/I. G-TUBE FEEDING RUNNING ORDERED, MINIMAL RESIDUAL NOTED, FLUSHING AND PATENT. SAFETY MEASURES MAINTAINED; CALL LIGHT WITHIN REACH AND SIDE RAILS UP X2. WILL CONTINUE TO MONITOR.
[2019-08-06 20:00] VITALS: BP 171/83
[2019-08-06] MEDS: FLUCONAZOLE IN NS 100 MG in PREMIX 1 EA IV SCH ×2 (20:25)
[2019-08-06] MEDS: SENNOSIDES 8.6 MG TABLET GT SCH (21:29)
[2019-08-07] VITALS: BP 181/82
[2019-08-07] MEDS: BLOOD SUGAR DIAGNOSTIC 1 EACH STRIP IN SCH ×4 (00:23→17:41)
[2019-08-07] MEDS: INSULIN REGULAR, HUMAN 100 UNIT/ML 3 ML VIAL SQ PRN ×4 (00:25→17:43)
[2019-08-07] MEDS: ALBUTEROL FS 2.5 MG/0.5 ML VIAL.NEB NEB SCH ×4 (01:13→19:40)
[2019-08-07] MEDS ORDERED: ENALAPRILAT INJ (1.25 MG/ML) 1.25 MG/ML VIAL IV ONE (01:40)
[2019-08-07] MEDS: ENALAPRILAT DIHYD. (2.5MG/ML) 1.25 MG/ML VIAL IV PRN (01:43)
--- NOTE | 2019-08-07 01:43 | NUR ---
TOUR AGENT NOTES PATIENT BP 181/85. RECHECKED 3X. VASOTEC 1.25MG/ML OVERRIDE DONE BY CHARGE. WILL RECHECK PATIENT'S BP IN 30-1HR.
[2019-08-07] MEDS: NITROGLYCERIN 30 GM TUBE TP SCH (03:06)
[2019-08-07] MEDS: MORPHINE SULFATE INJ 2 MG/ML DISP.SYRIN IV PRN ×2 (03:23→09:22)
[2019-08-07 04:00] VITALS: BP 187/85
--- NOTE | 2019-08-07 04:25 | NUR ---
ILLUMINATING ENGINEER NOTES PAGED MD REGARDING PATIENT BP HAS BEEN ELEVATED THROUGHOUT THE NIGHT AND MOST RECENT BP 187/85 DESPITE BP MEDICATIONS AND PRN HTN MEDICATION. NO NEW ORDERS NOTED. WILL CONT TO MONITOR PT CLOSELY.
--- NOTE | 2019-08-07 04:35 | NUR ---
RT NOTES TRACH TUBE IN PLACE, PATENT, AND SECURED WITH TRACH TIE. ALARMS ON AND AUDIBLE. VENT PLUGGED INTO RED OUTLET. BACK UP TRACH AND AMBU BAG BY THE BEDSIDE. PT TOLERATE TX WELL. SX MODERATE THIN PALE YELLOW SECRETIONS. NO SIGNS OF ANY DISTRESS AT THIS TIME. Addendum: 08/07/19 at 0438 by LORI LOERA RT Amended: Links added.
[2019-08-07] MEDS: NEPRO 1,000 ML BOTTLE GT PRN (06:22)
[2019-08-07 06:25] LABS: BASOPHILS # (AUTO) 0.1 /CMM (0.0-0.2); BASOPHILS % (AUTO) 0.4 % (0.0-2.0); EOSINOPHILS % (AUTO) 1.9 % (0.0-6.0); HEMATOCRIT 27 % (39-51); HEMOGLOBIN 8.9 g/dL (13.5-17.5); LYMPHOCYTES # (AUTO) 1.1 /CMM (0.8-4.8); LYMPHOCYTES % (AUTO) 5.2 % (20.0-44.0); MEAN CORPUSCULAR HGB CONC 33 g/dl (31.0-36.0); MEAN CORPUSCULAR VOLUME 90 fL (80-96); MONOCYTES # (AUTO) 1.4 /CMM (0.1-1.30); MONOCYTES % (AUTO) 6.3 % (2.0-12.0); NEUTROPHILS # (AUTO) 19.1 /CMM (1.8-8.9); NEUTROPHILS % (AUTO) 86.2 % (43.0-81.0); PLATELET COUNT (AUTO) 279 /CMM (150-450); RED BLOOD CELL COUNT(AUTO) 3.05 MIL/uL (4.5-6.0); WHITE BLOOD COUNT (AUTO) 22.2 K/uL (4.3-11.0)
[2019-08-07 06:54] LABS: CALCIUM, SERUM 8.7 mg/dL (8.5-10.1); CREATININE 2.6 mg/dL (0.6-1.3); POTASSIUM 2.9 mmol/L (3.5-5.1); TOTAL PROTEIN, SERUM 6.9 g/dL (6.4-8.2)
[2019-08-07] MEDS ORDERED: ENALAPRILAT INJ (1.25 MG/ML) 1.25 MG/ML VIAL IV PRN (07:31)
--- NOTE | 2019-08-07 07:48 | NUR ---
CREATIVE DEVELOPER CLOSING NOTES PATIENT SLEEPING IN BED, BUT EASY TO AROUSE, A/OX2. PATIENT ON VENT TOLERATING SETTINGS WELL, SATURATING 100%. DENIES ANY PAIN AT THE MOMENT. PATIENT ON TELE MONITOR SINUS TACHY HR 100S. HAS CANNON CATH OFF THE FLOOR AND DRAINING WELL. PATIENT HAS PICC LINE ON TOM PATENT AND FLUSHING WELL, IV FLUIDS RUNNING ORDERED. RIGHT WRIST 20G FLUSHING AND PATENT, SITE C/D/I. RIGHT FEMORAL HD CATH NOTED, SITE C/D/I. G-TUBE FEEDING RUNNING ORDERED, MINIMAL RESIDUAL NOTED, FLUSHING AND PATENT. REPOSITIONED Q2H. ALL MD ORDERS ATTENDED, ALL NEEDS MET. SAFETY MEASURES MAINTAINED; CALL LIGHT WITHIN REACH AND SIDE RAILS UP X2. ENDORSED TO AM RN FOR SALLY.
[2019-08-07 08:00] VITALS: BP 185/84
[2019-08-07 08:13] LABS: BAND % (MANUAL) 2 % (0.0-5.0); EOSINOPHILS % (MANUAL) 1 % (0-4); LYMPHOCYTES % (MANUAL) 6 % (16-48); MONOCYTES % (MANUAL) 6 % (0-11.0); NEUTROPHILS % (MANUAL) 85 (42-76)
[2019-08-07] MEDS: FERROUS SULFATE UDC 300 MG/5 ML UDC GT SCH (09:18)
[2019-08-07] MEDS: LEVETIRACETAM SOL (5 ML) 100 MG/ML UDC GT SCH ×2 (09:18→21:12)
[2019-08-07] MEDS: DOCUSATE SODIUM LIQ 100 MG/10 ML UDC GT SCH ×2 (09:18→21:13)
[2019-08-07] MEDS: MEROPENEM 500 MG in IV NS 0.9% 50 ML IV SCH ×2 (09:19→21:43)
[2019-08-07] MEDS: AMLODIPINE BESYLATE 5 MG TABLET PO SCH (09:19)
[2019-08-07] MEDS: FAMOTIDINE/PF INJ 20 MG/2 ML VIAL IV SCH (09:19)
[2019-08-07] MEDS: ISOSORBIDE DINITRATE (20MG) 20 MG TABLET PO SCH ×3 (09:21→21:11)
[2019-08-07] MEDS: CHLORHEXIDINE GLUCONATE 15 ML UDC MM SCH (09:24)
[2019-08-07 12:00] VITALS: BP_SYST 182; BP_DIAS 80; BP_DIAS 83
[2019-08-07] MEDS ORDERED: IV D5W 1,000 ML IV PRN (12:00)
[2019-08-07] MEDS: hydrALAZINE HCL 25 MG TABLET PO SCH ×2 (12:14→21:11)
[2019-08-07] MEDS: CLONIDINE HCL 0.1 MG TABLET PO SCH ×2 (12:14→21:11)
[2019-08-07] MEDS: VANCOMYCIN 0.75 GM in IV D5W 250 ML IV SCH (14:37)
[2019-08-07 16:00] VITALS: BP 160/69
--- NOTE | 2019-08-07 18:00 | NUR ---
RN NOTE SPOKE WITH DR PLUMMER REGARDING PROCALCITONIN 5.34, HE ORDERD CXR, AND TO RECHECK PROCALCITONIN LEVEL IN AM. WILL ORDER.
[2019-08-07 20:00] VITALS: BP 166/78
--- NOTE | 2019-08-07 20:00 | NUR ---
CUT IN WORKER NOTE PT IN BED AWAKE. ALERT, SAYING WORD YES TO EVERYTHING. NO DISTRESS OR DISCOMFORT NOTED. NO S/S OF PAIN NOTED. ON VENT/TRACH TOLERATING THE SETTINGS WELL. ON TELE SR/ST HR 100. JOSE MARTIN DRAINING WELL. F/C INTACT AND PATENT DRAINING YELLOWISH CLOUDY COLOR URINE. GTF INFUSING WELL AT 40 ML/HR, 0 ML RESIDUAL NOTED. TOM PICC INTACT AND PATENT INFUSING D5W AT 30 ML/HR, O ML RESIDUAL NOTED. RT FEMORAL HD CATH INTACT. SIDE RAILS UP X 3 AND CALL LIGHT WITH IN REACH. CONTINUE TO MONITOR HIM.
[2019-08-07] MEDS: SENNOSIDES 8.6 MG TABLET GT SCH (21:10)
[2019-08-07] MEDS: FLUCONAZOLE IN NS 100 MG in PREMIX 1 EA IV SCH ×2 (21:10)
[2019-08-08] VITALS (7 sets, daily range): BP systolic 149–182; BP diastolic 69–87
--- NOTE | 2019-08-08 | NUR ---
NAIL KEGGER NOTE REMINDED RT MARSHALL THAT THERE IS AN ORDER FOR TRACH CUFF CHANGE FROM CUFFLESS TO CUFF. VENT IS KEPT ON ALARMING, PT IN NO DISTRESS OR DISCOMFORT. PER MARSHALL RELAY THE INFO TO MORNING SHIFT.
[2019-08-08] MEDS: BLOOD SUGAR DIAGNOSTIC 1 EACH STRIP IN SCH ×5 (00:35→23:35)
[2019-08-08] MEDS: INSULIN REGULAR, HUMAN 100 UNIT/ML 3 ML VIAL SQ PRN ×5 (00:36→23:36)
[2019-08-08] MEDS: ALBUTEROL FS 2.5 MG/0.5 ML VIAL.NEB NEB SCH ×4 (01:33→19:40)
[2019-08-08] MEDS: MORPHINE SULFATE INJ 2 MG/ML DISP.SYRIN IV PRN (02:32)
--- NOTE | 2019-08-08 04:20 | NUR ---
RN NOTES PATIENT'S VENT CONSTANTLY ALARMING D/T PATIENT'S CUFFLESS TRACH. NO DESATTING & NO S/S OF RESPIRATORY DISTRESS NOTED. CALLED RT BRIE & VENT SETTING WAS CHANGED FROM INVASIVE TO NONINVASIVE PER RT RECOMMENDATION. VENT STILL ALARMING BUT LESS FREQUENT. WILL ENDORSE TO AM RN.
[2019-08-08] MEDS: ISOSORBIDE DINITRATE (20MG) 20 MG TABLET PO SCH ×3 (04:37→21:34)
[2019-08-08] MEDS: CLONIDINE HCL 0.1 MG TABLET PO SCH ×3 (04:38→21:33)
[2019-08-08] MEDS: hydrALAZINE HCL 25 MG TABLET PO SCH ×3 (04:38→21:33)
--- NOTE | 2019-08-08 06:54 | NUR ---
EYEGLASS LENS GRINDER NOTE PT IN BED AWAKE, NO DISTRESS OR DISCOMFORT NOTED. NO S/S OF PAIN NOTED. ON TELE MONITOR SR/ST HR 101. TOLERATING VENT SETTINGS. GTF INFUSING WELL. F/C INTACT AND PATENT DRAINING YELLOWISH COLOR URINE. ALSO JOSE MARTIN DRAINAGE INTACT AND PATENT FLUID COLOR IS YELLOWISH. SIDE RAILS UP X 2. CALL LIGHT WITHIN REACH. VSS. WILL ENDORSE TO DAY SHIFT NURSE FOR CONTINUE TO CARE.
[2019-08-08 06:55] LABS: CALCIUM, SERUM 8.4 mg/dL (8.5-10.1); CREATININE 2.3 mg/dL (0.6-1.3); POTASSIUM 2.9 mmol/L (3.5-5.1)
--- NOTE | 2019-08-08 07:35 | NUR ---
TAXICAB COORDINATOR OPENING NOTE RECEIVED REPORT FROM PM NURSE.PT IN BED AWAKE. ALERT, SAYING WORD YES TO EVERYTHING. NO DISTRESS OR DISCOMFORT NOTED. NO S/S OF PAIN NOTED. ON VENT/TRACH TOLERATING THE SETTINGS WELL. ON TELE SR HR 89. JOSE MARTIN DRAINING YELLOW COLOURED FLUID. F/C INTACT AND PATENT DRAINING YELLOWISH CLOUDY COLOR URINE. GTF INFUSING WELL AT 40 ML/HR. TOM PICC INTACT AND PATENT INFUSING D5W AT 30 ML/HR, . RT FEMORAL HD CATH INTACT. SIDE RAILS UP X 3 AND CALL LIGHT WITH IN REACH.BED IS LOCKED AND IN LOW POSITION.HOB ELEVATED.ASPIRATION PRECAUTIONS IN PLACE .WILL CONTINUE TO MONITOR.
[2019-08-08] MEDS: LEVETIRACETAM SOL (5 ML) 100 MG/ML UDC GT SCH ×2 (08:43→21:32)
[2019-08-08] MEDS: DOCUSATE SODIUM LIQ 100 MG/10 ML UDC GT SCH ×2 (08:43→21:32)
[2019-08-08] MEDS: CHLORHEXIDINE GLUCONATE 15 ML UDC MM SCH (08:43)
[2019-08-08] MEDS: FERROUS SULFATE UDC 300 MG/5 ML UDC GT SCH (08:43)
[2019-08-08] MEDS: MEROPENEM 500 MG in IV NS 0.9% 50 ML IV SCH ×2 (08:43→22:04)
[2019-08-08] MEDS: AMLODIPINE BESYLATE 5 MG TABLET PO SCH (08:45)
[2019-08-08] MEDS: VANCOMYCIN 0.75 GM in IV D5W 250 ML IV SCH (09:15)
[2019-08-08] MEDS: POTASSIUM CHLORIDE 20 MEQ POWDER PACKET NG SCH ×3 (10:28→14:13)
[2019-08-08 12:34] LABS: ABG BASE EXCESS 3.7 mmol/L; ABG OXYGEN SATURATION 98.3 % (92.0-98.5); ABG PH 7.414 (7.350-7.450); ABG PO2 140.8 mmHg (75.0-100.0); AaDO2 91.5 mmHg; COHb 0.7 % (0.5-1.5); MetHb 0.6 % (0.0-1.5); PEEP,BG 0 cm H2O; SITE, ABG Left Radial
[2019-08-08] MEDS: IV D5W 1,000 ML IV PRN ×2 (15:46→22:31)
--- NOTE | 2019-08-08 16:00 | NUR ---
HEAD WRESTLING COACH NOTE SEEN BY DR.KASHANI JUAREZ,UPDATED ABOUT PATIENT CONDITION WITH LABS.GOT NEW ORDERS.OK TO CHANGE GT FEEDING TO 40 CC/HR.AND INCREASED GT H2O FLUSH.
--- NOTE | 2019-08-08 18:13 | NUR ---
PT. 33 Y OLD MALE REC. 0700 PT. TRACH'D PORTEX # 7 CUFFLESS ON VENT REC. ON NIV VENT MODE WITH NOTED SETTINGS, ALARMS ARE SET AND FUNCTIONAL, @1105 DR. LAGOS ORDER CPAP MODE PS 10, FIO2 40%, NO PEEP, LITZY WELL AND POST NO CHANGES PER DR. LAGOS AND ASK TO KEEP PT. UNTIL AM ON CPAP MODE. ASSISTANT CORPORATE CONTROLLER AND RN TOBY INFORMED. B/S BILATERALLY FINE/RALES NOT MUCH SECRETIONS COLLECTED VIA SUCTION. PT. AWAKE AND RESPONSIVE. HME CHANGED TRACH CARE DONE AND INNER CANNULA CHANGED T/O SHIFT. NO DISTRESS NOTED NO SOB VENT. TX'S LITZY. WELL INLINE. NO ADVERSE REACTION NOTED. AMBU BAG AND EXTRA TRACH ON THE BEDSIDE. REPORT WILL PASS TO PM SHIFT. Addendum: 08/08/19 at 1821 by SHAWN CASTILLO RT Amended: Links added.
[2019-08-08] MEDS: NEPRO 1,000 ML BOTTLE GT PRN (18:15)
--- NOTE | 2019-08-08 18:40 | NUR ---
SNUFF GRINDER AND SCREENER NOTE SEEN BY FROM SURGERY,GOT NEW ORDERS.CONSENT OBTAINED FROM FRANCISCO NEXT OF KIN.VERIFIED WITH 2 RN.WILL CONTINUE TO MONITOR.
--- NOTE | 2019-08-08 19:10 | NUR ---
RESEARCH EPIDEMIOLOGIST CLOSING NOTE ENDORSED TO PM NURSE FOR SALLY.PATIENT IN STABLE CONDITION.
--- NOTE | 2019-08-08 20:00 | NUR ---
PLANT TECHNICAL SPECIALIST NOTE PT IN BED WITH EYES CLOSED. AROUSABLE. MOUTH WORD. ON VENT/TRACH TOLERATING THE SETTINGS. ON TELE SR HR 93. NO SOB, NO DISTRESS OR DISCOMFORT NOTED. NO S/S OF PAIN NOTED. GTF NEPRO INFUSING AT 40 ML/HR, 0 ML RESIDUAL NOTED. TOM PICC LINE INTACT AND PATENT INFUSING D5W AT 100 ML/HR, NO S/S OF INFILTRATION NOTED. REPOSITION HIM Q2H, KEPT HIM DRY AND CLEAN. ALL NEEDS ATTENDED. SIDE RAILS UP X 2 AND CALL LIGHT WITHIN REACH. CONTINUE TO MONITOR HIM.
[2019-08-08] MEDS: FLUCONAZOLE IN NS 100 MG in PREMIX 1 EA IV SCH ×2 (21:31)
[2019-08-08] MEDS: SENNOSIDES 8.6 MG TABLET GT SCH (21:33)
[2019-08-09] VITALS: BP 173/86
[2019-08-09] MEDS: ALBUTEROL FS 2.5 MG/0.5 ML VIAL.NEB NEB SCH ×4 (00:58→19:10)
[2019-08-09] MEDS: VANCOMYCIN 0.75 GM in IV D5W 250 ML IV SCH ×2 (01:59→20:53)
[2019-08-09 04:00] VITALS: BP 175/82
[2019-08-09] MEDS: hydrALAZINE HCL 25 MG TABLET PO SCH ×3 (05:26→21:00)
[2019-08-09] MEDS: ISOSORBIDE DINITRATE (20MG) 20 MG TABLET PO SCH ×3 (05:27→20:55)
[2019-08-09] MEDS: CLONIDINE HCL 0.1 MG TABLET PO SCH ×3 (05:27→20:54)
[2019-08-09] MEDS: BLOOD SUGAR DIAGNOSTIC 1 EACH STRIP IN SCH ×4 (05:53→23:46)
[2019-08-09] MEDS: INSULIN REGULAR, HUMAN 100 UNIT/ML 3 ML VIAL SQ PRN ×4 (06:00→23:43)
--- NOTE | 2019-08-09 06:26 | NUR ---
SOLE ROUGHER NOTE PT IN BED ASLEEP, AROUSABLE, NO DISTRESS OR DISCOMFORT NOTED. NO S/S OF PAIN NOTED. ON TELE MONITOR SR/ST HR 101. TOLERATING VENT SETTINGS. GTF INFUSING WELL. F/C INTACT AND PATENT DRAINING CLOUDY/YELLOWISH COLOR URINE. ALSO JOSE MARTIN DRAINAGE INTACT AND PATENT FLUID COLOR IS YELLOWISH 15 ML OUTPUT FOR THE SHIFT. SIDE RAILS UP X 2. CALL LIGHT WITHIN REACH. VSS. WILL ENDORSE TO DAY SHIFT NURSE FOR CONTINUE TO CARE.
[2019-08-09 06:38] LABS: BASOPHILS # (AUTO) 0.1 /CMM (0.0-0.2); BASOPHILS % (AUTO) 0.3 % (0.0-2.0); EOSINOPHILS % (AUTO) 1.2 % (0.0-6.0); HEMATOCRIT 24 % (39-51); HEMOGLOBIN 7.5 g/dL (13.5-17.5); LYMPHOCYTES # (AUTO) 1.2 /CMM (0.8-4.8); LYMPHOCYTES % (AUTO) 6.5 % (20.0-44.0); MEAN CORPUSCULAR HGB CONC 31 g/dl (31.0-36.0); MEAN CORPUSCULAR VOLUME 91 fL (80-96); MONOCYTES # (AUTO) 1.5 /CMM (0.1-1.30); MONOCYTES % (AUTO) 7.9 % (2.0-12.0); NEUTROPHILS % (AUTO) 84.1 % (43.0-81.0); PLATELET COUNT (AUTO) 297 /CMM (150-450); RED BLOOD CELL COUNT(AUTO) 2.66 MIL/uL (4.5-6.0)
[2019-08-09 06:47] LABS: CALCIUM, SERUM 8.4 mg/dL (8.5-10.1); MAGNESIUM 1.7 mg/dL (1.8-2.4); PHOSPHORUS 2.8 mg/dL (2.5-4.9); POTASSIUM 3.4 mmol/L (3.5-5.1)
--- NOTE | 2019-08-09 07:30 | NUR ---
RN NOTES RECEIVED PATIENT IN BED, A/A/O X2, NONVERBAL BUT ABLE TO ANSWER YES AND NO QUESTION, TRACH AND VENT DEPENDENT, TRACH AT MIDLINE POSITION, TOLERATING CURRENT VENT SETTINGS, NO SIGN OF SHORTNESS OF BREATH NOTED, SATING FINE. NO INDICATION OF PAIN NOTED. IV ACCESS NOTED 1.)R WRIST G 20, 2.) PICC LINE ON THE TOM 3.FEMORAL CATHETER, ALL IN PLACE, DRESSINGS CLEAN AND INTACT. WITH ONGOING D5W INFUSING WELL OVER THE PICC LINE AT 100CC/HR . GTF IN PLACE, PLACEMENT CONFIRMED THROUGH AUSCULTATION AND ASPIRATING GASTRIC CONTENT, NO RESIDUAL TAKEN AT THIS TIME. FEEDING OF NEPHRO RUNNING AT 40M/HR, PATIENT TOLERATING WELL. HO KEPT ELEVATED. SAFETY PRECAUTIONS OBSERVED AND MAINTAINED. SRX2 RAISED. BED LOW AND LOCK POSITION, CALL LIGHT PLACED WITHIN REACH, WILL CONTINUE TO MONITOR AND ANTICIPATE NEEDS
[2019-08-09] MEDS ORDERED: DIATR MEGLU/DIATRIZOATE SODIUM 30 ML BOTTLE (GASTROGRAPHIN) ONE (07:48)
--- NOTE | 2019-08-09 07:50 | NUR ---
RT PER MD ORDER PATIENT WAS PLACED ON CPAP 10, 40%. PATIENT HAS A CUFFLESS TRACH. PATIENT APPEARS COMFORTABLE WITH NO DISTRESS NOTED. PATIENT WAS SUCTIONED WITH SMALL AMT OF BROWN MCCLOUD MUCOUS PLUGS. B/S DIM. JOCELIN CROW AT [facility]. RN NOTIFIED OF CHANGE. Addendum: 08/09/19 at 0831 by SUMA NICHOLAS RT Amended: Links added.
[2019-08-09 08:00] VITALS: BP 163/79
[2019-08-09] MEDS: LEVETIRACETAM SOL (5 ML) 100 MG/ML UDC GT SCH ×2 (08:49→20:53)
[2019-08-09] MEDS: AMLODIPINE BESYLATE 5 MG TABLET PO SCH (08:49)
[2019-08-09] MEDS: FAMOTIDINE/PF INJ 20 MG/2 ML VIAL IV SCH (08:49)
[2019-08-09] MEDS: DOCUSATE SODIUM LIQ 100 MG/10 ML UDC GT SCH ×2 (08:49→20:53)
[2019-08-09] MEDS: FERROUS SULFATE UDC 300 MG/5 ML UDC GT SCH (08:49)
[2019-08-09] MEDS: CHLORHEXIDINE GLUCONATE 15 ML UDC MM SCH (08:49)
[2019-08-09] MEDS: MINOXIDIL (2.5MG) 2.5 MG TABLET PO SCH (08:50)
[2019-08-09] MEDS: MEROPENEM 500 MG in IV NS 0.9% 50 ML IV SCH (08:51)
[2019-08-09] MEDS ORDERED: MINOXIDIL (10MG) 10 MG TABLET PO SCH (09:00)
[2019-08-09 09:23] LABS: BAND % (MANUAL) 3 % (0.0-5.0); EOSINOPHILS % (MANUAL) 2 % (0-4); LYMPHOCYTES % (MANUAL) 3 % (16-48); MONOCYTES % (MANUAL) 7 % (0-11.0); MYELOCYTES % 5 % (0-0); NEUTROPHILS % (MANUAL) 80 (42-76)
[2019-08-09] MEDS ORDERED: POTASSIUM CHLORIDE 20 MEQ POWDER PACKET GT SCH (10:00)
--- NOTE | 2019-08-09 10:39 | NUR ---
WOUND CARE CONSULT: PT PRESENTS WITH INTACT SKIN EXCEPT FOR ABDOMINAL INCISION SITES WHICH HAVE DRY, INTACT DRESSINGS. JOSE MARTIN DRAIN NOTED TO HAVE PINK DRAINAGE. DEFER TO SURGICAL TEAM FOR SURGICAL SITES. ALL SKIN PROTECTION RECOMMENDATIONS DISCUSSED WITH NURSING STAFF. PT REFUSES LOW AIRLOSS MATTRESS. PT IS ALERT AND COMMUNICATES WELL. WILL SEE PRN.
[2019-08-09] MEDS ORDERED: Z GUARD REMEDY 2 OZ OINT TP PRN (11:00)
[2019-08-09] MEDS ORDERED: Magnesium 1GM/D5W 100ML PREMIX 100 ML IV SCH (11:00)
[2019-08-09] MEDS: IV D5W 1,000 ML IV PRN (11:28)
[2019-08-09] MEDS: Z GUARD REMEDY 2 OZ OINT TP SCH (11:29)
[2019-08-09 12:00] VITALS: BP 176/82
[2019-08-09] MEDS ORDERED: POTASSIUM CHLORIDE 20 MEQ POWDER PACKET GT ONE (12:00)
[2019-08-09 16:00] VITALS: BP 138/69
[2019-08-09] MEDS: MEROPENEM 1 G in IV NS 0.9% 100 ML IV SCH (17:40)
--- NOTE | 2019-08-09 19:23 | NUR ---
RN NOTES ENDORSED PATIENT FOR CONTINUITY OF CARE. NOT ON ANY FORM OF DISTRESS. ALL NURSING NEEDS ATTENDED AND MET. SAFETY MEASURES IN PLACE AT ALL TIMES. CALL LIGHT WITHIN REACH
--- NOTE | 2019-08-09 19:30 | NUR ---
TELE/RN NOTES. RECEIVED PT AWAKE ALERT,TRACKS AND FOLLOWS SIMPLE COMMANDS.ON VENT PER TRACH W/ FIO2 40%,CPAP,PSV OF 10,SATURATING 100%.SUCTIONED FOR SCANT WHITE TO PALE YELLOW SECRETIONS.TRACH DRESSING INTACT AND DRY.DENIES PAIN
[2019-08-09] MEDS: FLUCONAZOLE IN NS 100 MG in PREMIX 1 EA IV SCH ×2 (19:40)
[2019-08-09 20:00] VITALS: BP 150/70
--- NOTE | 2019-08-09 20:40 | NUR ---
RT NOTE PATIENT RECEIVED AWAKE/ALERT, TRACHED ON MECHANICAL VENTILATION. CUFF CHECKED VIA FINISHED CIGAR MAKER. AMBU BAG/BACK UP TRACH @ BEDSIDE. VENT PLUGGED TO RED OUTLET. ALARMS ON AND AUDIBLE. TX GIVEN, NO ADVERSE REACTIONS NOTED. SX DONE, TRACH SECURED AND PATENT. SMALL THICK SECRETIONS NOTED. CONT. POX CONNECTED. NO SOB NOTED. WILL MONITOR T/O SHIFT. Addendum: 08/09/19 at 2043 by MEGHAN MEHTA RT Amended: Links added.
[2019-08-09] MEDS: SENNOSIDES 8.6 MG TABLET GT SCH (22:51)
[2019-08-10] VITALS: BP 158/70
--- NOTE | 2019-08-10 | NUR ---
TELE/RN NOTES J-P DRAIN WITH SCANT SEROUS DRAINAGE.DRESSINGS TO LT UPPER AND LT LOWER ABDOMEN INACT AND DRY.SUCTIONED FOR SCANT SECRETIONS.
[2019-08-10] MEDS: IV D5W 1,000 ML IV PRN (00:23)
[2019-08-10] MEDS: NEPRO 1,000 ML BOTTLE GT PRN (00:32)
[2019-08-10] MEDS: ALBUTEROL FS 2.5 MG/0.5 ML VIAL.NEB NEB SCH ×4 (01:10→19:43)
[2019-08-10 04:00] VITALS: BP 159/95
[2019-08-10] MEDS: MEROPENEM 1 G in IV NS 0.9% 100 ML IV SCH ×2 (04:40→17:05)
[2019-08-10] MEDS: CLONIDINE HCL 0.1 MG TABLET PO SCH ×3 (04:42→21:12)
[2019-08-10] MEDS: ISOSORBIDE DINITRATE (20MG) 20 MG TABLET PO SCH ×3 (04:42→20:48)
[2019-08-10] MEDS: hydrALAZINE HCL 25 MG TABLET PO SCH ×3 (04:44→20:48)
--- NOTE | 2019-08-10 06:00 | NUR ---
TELE/RN NOTES VITAL SIGNS STABLE.MONITOR NSR.J-P DRAINED 15ML SEROUS DRAINAGE.TRACH CARE DONE.
[2019-08-10 06:13] LABS: BASOPHILS # (AUTO) 0.1 /CMM (0.0-0.2); BASOPHILS % (AUTO) 0.3 % (0.0-2.0); EOSINOPHILS % (AUTO) 1.2 % (0.0-6.0); HEMATOCRIT 22 % (39-51); HEMOGLOBIN 7.1 g/dL (13.5-17.5); LYMPHOCYTES # (AUTO) 1.2 /CMM (0.8-4.8); LYMPHOCYTES % (AUTO) 6.1 % (20.0-44.0); MEAN CORPUSCULAR HGB CONC 32 g/dl (31.0-36.0); MEAN CORPUSCULAR VOLUME 90 fL (80-96); MONOCYTES # (AUTO) 1.3 /CMM (0.1-1.30); MONOCYTES % (AUTO) 6.8 % (2.0-12.0); NEUTROPHILS % (AUTO) 85.6 % (43.0-81.0); PLATELET COUNT (AUTO) 304 /CMM (150-450); RED BLOOD CELL COUNT(AUTO) 2.43 MIL/uL (4.5-6.0); WHITE BLOOD COUNT (AUTO) 19.8 K/uL (4.3-11.0)
[2019-08-10] MEDS: INSULIN REGULAR, HUMAN 100 UNIT/ML 3 ML VIAL SQ PRN ×3 (06:25→17:28)
[2019-08-10] MEDS: BLOOD SUGAR DIAGNOSTIC 1 EACH STRIP IN SCH ×3 (06:25→17:05)
[2019-08-10 06:47] LABS: ALBUMIN 1.8 g/dL (3.4-5.0); BILIRUBIN,TOTAL 0.5 mg/dL (0.2-1.0); CREATININE 1.9 mg/dL (0.6-1.3); MAGNESIUM 1.7 mg/dL (1.8-2.4); PHOSPHORUS 3.3 mg/dL (2.5-4.9); POTASSIUM 3.4 mmol/L (3.5-5.1); TOTAL PROTEIN, SERUM 6.2 g/dL (6.4-8.2)
--- NOTE | 2019-08-10 07:30 | NUR ---
RN NOTES RECEIVED PATIENT BACK FROM FOUNTAIN BRUSH ASSEMBLER NURSE, NOT ON ANY FROM OF DISTRESS. PLAN OF CARE DISCUSSED WITH PATIENT. HOB KEPT ELEVATED. SAFETY MEASURES OBSERVED AND MAINTAINED. CALL LIGHT WITHI REACH, WILL CONTINUE TO MONITOR AND ANTICIPATE NEEDS
[2019-08-10 08:00] VITALS: BP 140/70
[2019-08-10] MEDS: DOCUSATE SODIUM LIQ 100 MG/10 ML UDC GT SCH ×2 (09:19→20:47)
[2019-08-10] MEDS: CHLORHEXIDINE GLUCONATE 15 ML UDC MM SCH (09:19)
[2019-08-10] MEDS: FERROUS SULFATE UDC 300 MG/5 ML UDC GT SCH (09:19)
[2019-08-10] MEDS: LEVETIRACETAM SOL (5 ML) 100 MG/ML UDC GT SCH ×2 (09:19→20:47)
[2019-08-10] MEDS: AMLODIPINE BESYLATE 5 MG TABLET PO SCH (09:20)
[2019-08-10] MEDS: MINOXIDIL (2.5MG) 2.5 MG TABLET PO SCH (09:20)
[2019-08-10] MEDS: Z GUARD REMEDY 2 OZ OINT TP SCH (09:21)
--- NOTE | 2019-08-10 10:52 | NUR ---
RN NOTES PATIENT PLACED ON COOL AEROSOL AT 35 % AT THIS TIME. WILL MONITOR CLOSELY
[2019-08-10] MEDS ORDERED: Magnesium 1GM/D5W 100ML PREMIX 100 ML IV SCH (11:15)
[2019-08-10] MEDS ORDERED: POTASSIUM CHLORIDE 20 MEQ POWDER PACKET GT SCH (11:30)
[2019-08-10 12:00] VITALS: BP 136/70
--- NOTE | 2019-08-10 12:00 | NUR ---
RN NOTES PATIENT PLACED ON COOL AEROSOL AT 28%. PATIENT ABLE TO TOLERATE WELL. NO SHORTNESS OF BREATH NOTED
[2019-08-10] MEDS ORDERED: POTASSIUM CHLORIDE 10 MEQ TABLET.SA PO ONE (12:30)
[2019-08-10] MEDS: VANCOMYCIN 0.75 GM in IV D5W 250 ML IV SCH (14:03)
[2019-08-10 16:00] VITALS: BP 128/64
[2019-08-10] MEDS: Potassium Chloride 20 MEQ in IV D5W 1,000 ML IV PRN (17:04)
[2019-08-10 17:35] LABS: ABG BASE EXCESS 5.9 mmol/L; ABG OXYGEN SATURATION 98.4 % (92.0-98.5); ABG PCO2 43.7 mmHg (35.0-45.0); ABG PH 7.459 (7.350-7.450); ABG PO2 150.7 mmHg (75.0-100.0); AaDO2 48.1 mmHg; COHb 0.7 % (0.5-1.5); MetHb 0.7 % (0.0-1.5); SITE, ABG Left Radial; VENT MODE, BG COOL AEROSOL
--- NOTE | 2019-08-10 19:31 | NUR ---
RN NOTES ENDORSED FOR CONTINUITY OF CARE, NOT ON ANY FORM OF DISTRESS. ALL NURSING NEEDS ATTENDED AND MET. SAFETY MEASURES IN PLACE AT ALL TIMES. CALL LIGHT WITHIN REACH
[2019-08-10 20:00] VITALS: BP 139/66
--- NOTE | 2019-08-10 20:00 | NUR ---
RN INITIAL MS NOTE RECIEVED PT ON TPIECE ON C/A, WELL TOLERATED, AWAKE AOX3 ABLE TO NONVERBALLY MAKE NEEDS KNOWN, CALL LIGHT WNR, NEEDS ANTICIPATED, DENIES ANY PAIN OR DISCOMFORT, CLEAN AND DRY, WITH GTF-NEPRO@40ML/HR WELL TOLERATED, NO RESIDUAL NOTED AT THIS TIME, TOM PICC LINE INTACT DW+20MEQ@100ML/HR WELL TOLERATED, NO S/SX OF FLUID VOL' EXCESS, RT FEMORAL HD CATH INTACT WITH CLEAN DRESSING, RFA#20G-SL, F/C IN PLACE WITH C/Y O/P NOTED, ADEQUATE AMOUNT, WELL SECURED WITH STRAP AT THIGH, SAFETY MEASURES IN PLACE, WILL CONT' TO MONITOR PT.
[2019-08-10] MEDS: FLUCONAZOLE IN NS 100 MG in PREMIX 1 EA IV SCH ×2 (20:46)
[2019-08-10] MEDS: SENNOSIDES 8.6 MG TABLET GT SCH (21:12)
[2019-08-11] VITALS (7 sets, daily range): BP systolic 124–171; BP diastolic 61–72
[2019-08-11] MEDS: BLOOD SUGAR DIAGNOSTIC 1 EACH STRIP IN SCH ×4 (00:03→18:39)
[2019-08-11] MEDS: INSULIN REGULAR, HUMAN 100 UNIT/ML 3 ML VIAL SQ PRN ×4 (00:04→18:40)
[2019-08-11] MEDS: ALBUTEROL FS 2.5 MG/0.5 ML VIAL.NEB NEB SCH ×4 (00:49→19:53)
[2019-08-11] MEDS: NEPRO 1,000 ML BOTTLE GT PRN (03:22)
[2019-08-11] MEDS: MEROPENEM 1 G in IV NS 0.9% 100 ML IV SCH ×2 (05:10→18:39)
[2019-08-11] MEDS: CLONIDINE HCL 0.1 MG TABLET PO SCH ×3 (05:11→21:00)
[2019-08-11] MEDS: hydrALAZINE HCL 25 MG TABLET PO SCH ×3 (05:11→21:51)
[2019-08-11] MEDS: ISOSORBIDE DINITRATE (20MG) 20 MG TABLET PO SCH ×3 (05:13→21:00)
--- NOTE | 2019-08-11 06:44 | NUR ---
RN CLOSING MS NOTE PT ON TPIECE ON C/A, WELL TOLERATED, AWAKE AOX3 ABLE TO NONVERBALLY MAKE NEEDS KNOWN, CALL LIGHT WNR, NEEDS ANTICIPATED, DENIES ANY PAIN OR DISCOMFORT, CLEAN AND DRY, WITH GTF-NEPRO@40ML/HR WELL TOLERATED, NO RESIDUAL NOTED AT THIS TIME, TOM PICC LINE INTACT DW+20MEQ@100ML/HR WELL TOLERATED, NO S/SX OF FLUID VOL' EXCESS, RT FEMORAL HD CATH INTACT WITH CLEAN DRESSING, RFA#20G-SL, F/C IN PLACE WITH C/Y O/P NOTED, ADEQUATE AMOUNT, WELL SECURED WITH STRAP AT THIGH, SAFETY MEASURES IN PLACE, WILL CONT' TO MONITOR PT.
[2019-08-11 07:25] LABS: CALCIUM, SERUM 8.1 mg/dL (8.5-10.1); CREATININE 1.9 mg/dL (0.6-1.3); MAGNESIUM 1.9 mg/dL (1.8-2.4); POTASSIUM 3.7 mmol/L (3.5-5.1)
--- NOTE | 2019-08-11 07:30 | NUR ---
HOSE FINISHER INITIAL NOTE RECEIVED PATIENT AWAKE, ABLE TO MAKE NEEDS KNOWN. NO RESPIRATORY DISTRESS NOTED. TOLERATING C/A. TRACH C/D/I. WITH GT PATENT, INTACT, IN PLACE, NO RESIDUAL NOTED. NO S/S OF PAIN OR DISCOMFORT. ON TELE MONITOR SR. F/C PATENT, INTACT, IN PLACE, DRAINING BY GRAVITY. PICC LINE PATENT, INTACT, IVF RUNNING. HOB ELEVATED. ISOLATION PRECAUTION OBSERVED. TURNED AND REPOSITIONED. SIDE RAILS UP AND LOCKED. CALL LIGHT KEPT WITH EASY REACH. WILL CONTINUE TO MONITOR.
[2019-08-11] MEDS: VANCOMYCIN 0.75 GM in IV D5W 250 ML IV SCH (08:00)
--- NOTE | 2019-08-11 08:37 | NUR ---
RN NOTE NON-ADMIN VANCO, TROUGH >20
[2019-08-11] MEDS: FERROUS SULFATE UDC 300 MG/5 ML UDC GT SCH (08:44)
[2019-08-11] MEDS: CHLORHEXIDINE GLUCONATE 15 ML UDC MM SCH (08:44)
[2019-08-11] MEDS: LEVETIRACETAM SOL (5 ML) 100 MG/ML UDC GT SCH ×2 (08:44→21:00)
[2019-08-11] MEDS: DOCUSATE SODIUM LIQ 100 MG/10 ML UDC GT SCH ×2 (08:44→21:00)
[2019-08-11] MEDS: ACETAMINOPHEN 650 MG/20.3 ML UDC PO PRN (08:44)
[2019-08-11] MEDS: FAMOTIDINE/PF INJ 20 MG/2 ML VIAL IV SCH (08:44)
[2019-08-11] MEDS: MINOXIDIL (2.5MG) 2.5 MG TABLET PO SCH (08:45)
[2019-08-11] MEDS: Z GUARD REMEDY 2 OZ OINT TP SCH (08:45)
[2019-08-11] MEDS: AMLODIPINE BESYLATE 5 MG TABLET PO SCH (08:45)
--- NOTE | 2019-08-11 09:14 | NUR ---
RT NOTE PT REC'D ON COOL AEROSOL. NO SOB NOTED AT THIS TIME. TRACH TUBE PATENT AND SECURE. BACK UP TRACH AND BVM @ [facility].
[2019-08-11 10:45] LABS: BASOPHILS # (AUTO) 0.1 /CMM (0.0-0.2); BASOPHILS % (AUTO) 0.5 % (0.0-2.0); EOSINOPHILS % (AUTO) 1.1 % (0.0-6.0); LYMPHOCYTES # (AUTO) 1.2 /CMM (0.8-4.8); LYMPHOCYTES % (AUTO) 7.5 % (20.0-44.0); MEAN CORPUSCULAR HGB CONC 32 g/dl (31.0-36.0); MEAN CORPUSCULAR VOLUME 88 fL (80-96); MONOCYTES # (AUTO) 1.2 /CMM (0.1-1.30); MONOCYTES % (AUTO) 7.7 % (2.0-12.0); NEUTROPHILS % (AUTO) 83.2 % (43.0-81.0); PLATELET COUNT (AUTO) 311 /CMM (150-450); WHITE BLOOD COUNT (AUTO) 15.6 K/uL (4.3-11.0)
[2019-08-11] MEDS: Potassium Chloride 20 MEQ in IV D5W 1,000 ML IV PRN (11:18)
[2019-08-11 11:36] LABS: HEMATOCRIT 20 % (39-51); HEMOGLOBIN 6.6 g/dL (13.5-17.5)
[2019-08-11 11:56] LABS: LYMPHOCYTES % (MANUAL) 8 % (16-48); MONOCYTES % (MANUAL) 7 % (0-11.0); NEUTROPHILS % (MANUAL) 85 (42-76)
[2019-08-11 13:05] LABS: IRON, SERUM 33 ug/dl (50-175); TOTAL IRON BINDING CAPACITY 120 ug/dl (250-450)
[2019-08-11 14:02] LABS: FERRITIN 1344 ng/mL (8-388)
--- NOTE | 2019-08-11 15:11 | NUR ---
EAR MUFF ASSEMBLER NOTE SPOKE WITH LEARNING TECHNOLOGIES SPECIALIST SONJA CONFIRMING HIDA SCAN ORDER. INFORMED SONJA THE WILL BE DOING THE SCAN IN ABOUT AN HOUR AND A HALF. GTF ON HOLD PER STRATEGY EXECUTION CONSULTANT. PER SONJA SHE SPOKE WITH RADIOLOGY AND WILL HOLD OFF ON PERC ABSCESS DRAINAGE FOR NOW.
--- NOTE | 2019-08-11 16:45 | NUR ---
OCEAN CLAM BOAT CAPTAIN NOTE PATIENT LEFT FOR HIDA SCAN VIA BED WITH RT AT BEDSIDE.
--- NOTE | 2019-08-11 18:34 | NUR ---
CUTTER GRINDER OPERATOR NOTE PATIENT RETURNED FROM HIDA SCAN
--- NOTE | 2019-08-11 19:20 | NUR ---
PACKAGE LINER NOTE PATIENT RECEIVED IN BED SLEEPING ABLE TO BE AWOKEN A/O X 1-2. PATIENT DENIES PAIN OR DISCOMFORT AT THIS TIME. PATIENT SR ON THE MONITOR. PATIENT TOLERATING VENT SETTINGS WELL, BREATHING EVEN AND UNLABORED. PATIENT DENIES SOB/. PATIENT PICC LINE TOM PATENT INTACT RUNNING IVF NO S/S OF INFECTION OR INFILTRATION. PATIENT HAS R FEM JENNY CATH NO S/S OF INFECTION AT SITE. CANNON CATH PATENT DRAINING TO GRAVITY. GTF OFF PATIENT HAS STAT HIDA SCAN TONIGHT. PATIENT CURRENTLY NPO. SAFETY PRECAUTIONS IN PLACE CALL LIGHT WITHIN REACH.
--- NOTE | 2019-08-11 20:00 | NUR ---
GASOLINE TESTER NOTE CONFIRMED WITH RHONDA FROM NUCLEAR MEDICINE TIME OF STAT HIDA SCAN: 2100, RT AWARE AND ABLE TO GO WITH PATIENT FOR PROCEDURE
[2019-08-11] MEDS: FLUCONAZOLE IN NS 100 MG in PREMIX 1 EA IV SCH ×2 (20:13)
--- NOTE | 2019-08-11 20:33 | NUR ---
WAISTLINE JOINER LOCKSTITCH NOTE PATIENT HAS SLIGHTLY ELEVATED TEMP, COOLING MEASURES IMPLEMENTED, UNABLE TO GIVE TYLENOL FOR FEVER DUE TO NPO STATUS. RN WILL CONTINUE TO MONTIOR FOR CHANGES. Addendum: 08/11/19 at 2033 by RUI CORRALES RN Amended: Links added.
--- NOTE | 2019-08-11 21:22 | NUR ---
INTEGRITY ENGINEER NOTE PATIENT TAKEN TO NUCLEAR MEDICINE WITH RN/ RT
[2019-08-11] MEDS: SENNOSIDES 8.6 MG TABLET GT SCH (21:52)
--- NOTE | 2019-08-11 21:53 | NUR ---
LACEWORKER NOTE PATIENT RETURNED FROM NUCLEAR MEDICINE NO COMPLICATIONS NOTED
--- NOTE | 2019-08-11 23:30 | NUR ---
FACILITY MANAGER HISTOLOGY NOTE CALLED ARNP SONJA FOR RESULTS OF HIDA SCAN, MESSAGE LEFT. NO CALL BACK YET.
[2019-08-12] VITALS: BP 141/68
[2019-08-12] MEDS: BLOOD SUGAR DIAGNOSTIC 1 EACH STRIP IN SCH ×5 (00:22→23:13)
[2019-08-12] MEDS: INSULIN REGULAR, HUMAN 100 UNIT/ML 3 ML VIAL SQ PRN ×4 (01:15→23:17)
[2019-08-12] MEDS: ALBUTEROL FS 2.5 MG/0.5 ML VIAL.NEB NEB SCH ×4 (01:41→19:58)
[2019-08-12] MEDS: Potassium Chloride 20 MEQ in IV D5W 1,000 ML IV PRN ×2 (03:10→17:43)
[2019-08-12 04:00] VITALS: BP 149/73
[2019-08-12] MEDS: MEROPENEM 1 G in IV NS 0.9% 100 ML IV SCH ×2 (04:01→16:19)
[2019-08-12] MEDS: CLONIDINE HCL 0.1 MG TABLET PO SCH ×3 (05:00→20:59)
[2019-08-12] MEDS: hydrALAZINE HCL 25 MG TABLET PO SCH ×3 (05:00→20:59)
[2019-08-12] MEDS: ISOSORBIDE DINITRATE (20MG) 20 MG TABLET PO SCH ×3 (05:00→20:59)
[2019-08-12 06:46] LABS: BASOPHILS # (AUTO) 0.1 /CMM (0.0-0.2); BASOPHILS % (AUTO) 0.4 % (0.0-2.0); EOSINOPHILS % (AUTO) 1.4 % (0.0-6.0); HEMATOCRIT 22 % (39-51); HEMOGLOBIN 7.3 g/dL (13.5-17.5); LYMPHOCYTES # (AUTO) 1.4 /CMM (0.8-4.8); LYMPHOCYTES % (AUTO) 9.4 % (20.0-44.0); MEAN CORPUSCULAR HGB CONC 34 g/dl (31.0-36.0); MEAN CORPUSCULAR VOLUME 88 fL (80-96); MONOCYTES # (AUTO) 1.1 /CMM (0.1-1.30); MONOCYTES % (AUTO) 7.6 % (2.0-12.0); NEUTROPHILS % (AUTO) 81.2 % (43.0-81.0); PLATELET COUNT (AUTO) 373 /CMM (150-450); RED BLOOD CELL COUNT(AUTO) 2.48 MIL/uL (4.5-6.0); WHITE BLOOD COUNT (AUTO) 14.8 K/uL (4.3-11.0)
[2019-08-12 07:14] LABS: CALCIUM, SERUM 8.5 mg/dL (8.5-10.1); CREATININE 1.7 mg/dL (0.6-1.3); POTASSIUM 3.7 mmol/L (3.5-5.1)
--- NOTE | 2019-08-12 07:27 | NUR ---
NET SOFTWARE DEVELOPER NOTE PATIENT TOLERATED THE NIGHT WELL. CARD MAKER NEVER CALLED BACK FOR HIDA SCAN RESULTS ENDORSED TO AM FOR FOLLOW-UP. PATIENT HR 94 ON THE MONITOR SR PATIENT DENIES PAIN AT THIS TIME. ALL CARE GIVEN ORDERED NO S/S OF RESP DISTRESS. PATIENT TOLERATING COOL AEROSOL WELL. ENDORSED POC TO AM FOR SALLY.
--- NOTE | 2019-08-12 07:30 | NUR ---
MASTER AUTOMOTIVE TECHNICIAN INITIAL NOTES RECEIVED PT IN BED, RESPONDS TO NAME/TOUCH. TPIECE TO 28%FIO2. TOLERATING WELL. O2 SAT WNL. ELEVATED BP. ON TELE ST-SR. TUBE FEEDING HELD PER MD ORDER. NO RESIDUAL. F/C DRAINING YELLOW URINE WITH SEDIMENTS. LUZ CALLEJAS DRAIN IN PLACE, DRAINING SEROSANGUINEOUS FLUID WITH SOME BLOOD CLOTS. BED IN LOCKED/LOWEST POSITION. SAFETY MEASURES IN PLACE. CALL LIGHT IN REACH. WILL CONT TO MONITOR.
[2019-08-12 07:41] LABS: MAGNESIUM 1.7 mg/dL (1.8-2.4); PHOSPHORUS 3.6 mg/dL (2.5-4.9)
[2019-08-12 08:00] VITALS: BP_SYST 176; BP_SYST 190; BP_DIAS 79; BP_DIAS 89
[2019-08-12] MEDS ORDERED: VANCOMYCIN 0.75 GM in IV D5W 250 ML IV SCH (09:00)
[2019-08-12] MEDS: ONDANSETRON HCL/PF 4 MG/2 ML VIAL IV PRN (09:19)
[2019-08-12] MEDS: MORPHINE SULFATE INJ 2 MG/ML DISP.SYRIN IV PRN (09:20)
[2019-08-12] MEDS: FERROUS SULFATE UDC 300 MG/5 ML UDC GT SCH (09:29)
[2019-08-12] MEDS: LEVETIRACETAM SOL (5 ML) 100 MG/ML UDC GT SCH ×2 (09:29→20:58)
[2019-08-12] MEDS: DOCUSATE SODIUM LIQ 100 MG/10 ML UDC GT SCH ×2 (09:29→20:58)
[2019-08-12] MEDS: CHLORHEXIDINE GLUCONATE 15 ML UDC MM SCH (09:29)
[2019-08-12] MEDS: MINOXIDIL (2.5MG) 2.5 MG TABLET PO SCH (09:30)
[2019-08-12] MEDS: AMLODIPINE BESYLATE 5 MG TABLET PO SCH (09:30)
[2019-08-12] MEDS: Z GUARD REMEDY 2 OZ OINT TP SCH (09:33)
[2019-08-12] MEDS ORDERED: Magnesium 1GM/D5W 100ML PREMIX 100 ML IV SCH (10:30)
[2019-08-12 12:00] VITALS: BP 173/83
--- NOTE | 2019-08-12 14:46 | NUR ---
RT Pt rc'd trach'd and on cool aerosol on ordered settings. Pt is stable. No respiratory distress noted t/o shift. Addendum: 08/12/19 at 1728 by ABHIJIT DEE RT Amended: Links added.
[2019-08-12 16:00] VITALS: BP 100/49
--- NOTE | 2019-08-12 18:36 | NUR ---
EVENT PLANNER END OF SHIFT NOTES PT ASLEEP IN BED, EASILY AROUSABLE. VS STABLE. SR ON TELE. TOLERATING O2 SETTINGS TO TPIECE. NO FURTHER EPISODES OF VOMITING. LUZ CALLEJAS DRAIN IN PLACE, DRAINING SEROSANGUINEOUS FLUID WITH BLOOD CLOTS. IV SITE NO S/SX OF INFECTION. CALL LIGHT IN REACH. SAFETY PRECAUTIONS/ISOLATION MAINTAINED THROUGHOUT SHIFT. WILL ENDORSE TO PM NURSE FOR SALLY.
--- NOTE | 2019-08-12 19:30 | NUR ---
SERVICE ADVOCATE CONTACT NOTE: RECEIVED PT ON BED ASLEEP BUT AROUSES EASILY TO VERBAL AND TACTILE STIMULI. NO APPARENT DISTRESS NOTED. DENIES PAIN AND DISCOMFORT AT THIS TIME. ON COOL AEROSOL, NO SOB NOTED. SUCTIONED NEEDED. SINUS RHYTHM ON TELE MONITOR HR 86BPM. RIGHT UPPER ARM PICC LINE INTACT AND PATENT, IVF INFUSING WELL. CANNON CATH INTACT AND DRAINING WELL. KEPT CLEAN, DRY AND COMFORTABLE. SAFETY AND FALL PRECAUTIONS OBSERVED AND MAINTAINED. WILL CONTINUE TO MONITOR PT.
[2019-08-12 20:00] VITALS: BP 118/64
[2019-08-12] MEDS: FLUCONAZOLE IN NS 100 MG in PREMIX 1 EA IV SCH ×2 (20:07)
[2019-08-12] MEDS: SENNOSIDES 8.6 MG TABLET GT SCH (21:00)
[2019-08-13] VITALS (9 sets, daily range): BP systolic 123–148; BP diastolic 63–72
[2019-08-13] MEDS: ALBUTEROL FS 2.5 MG/0.5 ML VIAL.NEB NEB SCH ×4 (01:48→19:26)
[2019-08-13] MEDS ORDERED: IV PREMIX D5W + KCL 1,000 ML IV ONE (04:34)
[2019-08-13] MEDS: MEROPENEM 1 G in IV NS 0.9% 100 ML IV SCH ×2 (05:03→17:07)
[2019-08-13] MEDS: hydrALAZINE HCL 25 MG TABLET PO SCH ×3 (05:04→21:21)
[2019-08-13] MEDS: ISOSORBIDE DINITRATE (20MG) 20 MG TABLET PO SCH ×3 (05:05→21:20)
[2019-08-13] MEDS: CLONIDINE HCL 0.1 MG TABLET PO SCH ×3 (05:05→21:19)
[2019-08-13] MEDS: Potassium Chloride 20 MEQ in IV D5W 1,000 ML IV PRN ×2 (05:06→14:49)
[2019-08-13] MEDS: BLOOD SUGAR DIAGNOSTIC 1 EACH STRIP IN SCH ×3 (06:04→17:23)
[2019-08-13] MEDS: INSULIN REGULAR, HUMAN 100 UNIT/ML 3 ML VIAL SQ PRN ×3 (06:07→17:55)
--- NOTE | 2019-08-13 06:52 | NUR ---
BROKER ASSISTANT NOTE: NO CHANGES NOTED THROUGHOUT THE SHIFT. NO ACUTE DISTRESS NOTED. NO FACIAL GRIMACING OR ANY SIGNS OF PAIN NOTED. ON COOL AEROSOL, NO SOB NOTED. SATURATING WELL. ON TELE MONITOR SINUS RHYTHM HR 86 BPM. RIGHT UPPER ARM PICC LINE AND RIGHT FOREARM #20 INTACT AND PATENT, FLUSHING WELL. CANNON CATH INTACT, DRAINED 650ML OF URINE OUTPUT. KEPT CLEAN, DRY AND COMFORTABLE. SAFETY AND FALL PRECAUTIONS OBSERVED AND MAINTAINED. WILL ENDORSE TO DAY SHIFT RN FOR CONTINUITY OF CARE
[2019-08-13 07:08] LABS: BASOPHILS # (AUTO) 0.1 /CMM (0.0-0.2); BASOPHILS % (AUTO) 0.5 % (0.0-2.0); EOSINOPHILS % (AUTO) 1.1 % (0.0-6.0); HEMATOCRIT 21 % (39-51); LYMPHOCYTES # (AUTO) 1.6 /CMM (0.8-4.8); LYMPHOCYTES % (AUTO) 13.2 % (20.0-44.0); MEAN CORPUSCULAR HGB CONC 34 g/dl (31.0-36.0); MEAN CORPUSCULAR VOLUME 87 fL (80-96); MONOCYTES # (AUTO) 1.2 /CMM (0.1-1.30); MONOCYTES % (AUTO) 9.8 % (2.0-12.0); NEUTROPHILS # (AUTO) 9.1 /CMM (1.8-8.9); NEUTROPHILS % (AUTO) 75.4 % (43.0-81.0); PLATELET COUNT (AUTO) 359 /CMM (150-450); RED BLOOD CELL COUNT(AUTO) 2.39 MIL/uL (4.5-6.0); WHITE BLOOD COUNT (AUTO) 12.1 K/uL (4.3-11.0)
[2019-08-13 07:25] LABS: CALCIUM, SERUM 8.3 mg/dL (8.5-10.1); CREATININE 1.8 mg/dL (0.6-1.3); MAGNESIUM 1.8 mg/dL (1.8-2.4); PHOSPHORUS 3.7 mg/dL (2.5-4.9); POTASSIUM 4.6 mmol/L (3.5-5.1)
--- NOTE | 2019-08-13 07:30 | NUR ---
IMPORT/EXPORT SPECIALIST INITIAL NOTES RECEIVED PT IN BED, PT ONLY VERBALIZES YES/NO; ON 5LPM O2 VIA TPIECE. TOLERATING WELL. NO LABORED BREATHING.ON TELE SR. JOSE MARTIN DRAIN IN PLACE WITH MINIMAL SEROUS FLUID DRAINING. F/C WITH YELLOW URINE WITH SEDIMENT. TOM PICC LINE INFUSING D5W WITH KCL 20MEQ. IV SITE PATENT/FLUSHED WITH BLOOD RETURN. RFA #20 IV SITE PATENT/NO REDNESS. SAFETY/ISOLATION MEASURES IN PLACED. CALL LIGHT IN REACH. WILL CONT TO MONITOR.
--- NOTE | 2019-08-13 07:43 | NUR ---
STEPHEN DUVAL FROM LAB CALLED WITH CRITICAL LAB HGB 7.0. CALLED [facility] FOR DR HINTON. KAROL,NATIONAL ACCOUNTS RECRUITER, WILL CONTACT AWAITING CALL BACK. Addendum: 08/13/19 at 0806 by DUSTIN BROWN RN DR HINTON CALLED BACK; NO NEW ORDERS RECEIVED. WILL MONITOR PT.
[2019-08-13] MEDS: CHLORHEXIDINE GLUCONATE 15 ML UDC MM SCH (09:14)
[2019-08-13] MEDS: LEVETIRACETAM SOL (5 ML) 100 MG/ML UDC GT SCH ×2 (09:14→21:18)
[2019-08-13] MEDS: DOCUSATE SODIUM LIQ 100 MG/10 ML UDC GT SCH ×2 (09:14→21:18)
[2019-08-13] MEDS: FERROUS SULFATE UDC 300 MG/5 ML UDC GT SCH (09:14)
[2019-08-13] MEDS: AMLODIPINE BESYLATE 5 MG TABLET PO SCH (09:15)
[2019-08-13] MEDS: MINOXIDIL (2.5MG) 2.5 MG TABLET PO SCH (09:15)
[2019-08-13] MEDS: Z GUARD REMEDY 2 OZ OINT TP SCH (09:16)
[2019-08-13] MEDS: FAMOTIDINE/PF INJ 20 MG/2 ML VIAL IV SCH (09:18)
[2019-08-13 09:20] LABS: EOSINOPHILS % (MANUAL) 2 % (0-4); LYMPHOCYTES % (MANUAL) 13 % (16-48); MONOCYTES % (MANUAL) 8 % (0-11.0); NEUTROPHILS % (MANUAL) 77 (42-76)
[2019-08-13] MEDS ORDERED: KETOROLAC TROMETHAMINE INJ 60 MG/2 ML VIAL IM ONE (10:17)
--- NOTE | 2019-08-13 12:00 | NUR ---
BEAD FILLER NOTES HYDRALAZINE HELD D/T DEC BP; GIVING CLONIDINE 0.3MG AND NITRATE 20MG. WILL CONT TO MONITOR.
--- NOTE | 2019-08-13 18:44 | NUR ---
MANAGER OF DISASTER RECOVERY END OF SHIFT NOTES PT STABLE IN BED, ASLEEP BUT EASILY AROUSABLE. NO C/O PAIN/RESP DISTRESS. JOSE MARTIN DRAIN IN PLACE, DRAINING MINIMAL SEROSANGUINEOUS FLUID. F/C IN PLACE DRAINING YELLOW URINE WITH SEDIMENT. ON TELE SR. SAFETY MEASURES IN PLACE. WILL ENDORSE TO PM NURSE FOR SALLY.
--- NOTE | 2019-08-13 19:30 | NUR ---
off going nurse was asked why pt is still getting k+ in his ivf when his k+ level is 4.6 she stated the physician is aware and didn't write no order to discontinue the k+ in ivf
--- NOTE | 2019-08-13 20:00 | NUR ---
pt is awake responsive with eyes and head movement does have a trach via t piece madan well hob elevated suct nothing ls sl cl bilat oral care given bs pos in all four quad has a peg tube clamped has a t tube via jez sl serous. drainage has a alberts cath patent draining qs cl yellow urine overall appearances fair no movement on the right side lt side movement noted is wearing scd'd bilat rt ft swollen and has ft drophas a rt wrist #20g hl intact and has a marcus triple lumen intact rec'ing d5w with 20 k at 100ml/hr denies pain/discomfort vss comfort and safety maintained
[2019-08-13] MEDS: SENNOSIDES 8.6 MG TABLET GT SCH (21:20)
[2019-08-14] VITALS: BP 130/55
[2019-08-14] MEDS: ALBUTEROL FS 2.5 MG/0.5 ML VIAL.NEB NEB SCH ×4 (00:40→19:46)
[2019-08-14] MEDS: Potassium Chloride 20 MEQ in IV D5W 1,000 ML IV PRN (01:22)
[2019-08-14 04:00] VITALS: BP 140/72
[2019-08-14] MEDS: MEROPENEM 1 G in IV NS 0.9% 100 ML IV SCH ×2 (05:17→17:01)
[2019-08-14] MEDS: hydrALAZINE HCL 25 MG TABLET PO SCH ×3 (05:25→21:43)
[2019-08-14] MEDS: CLONIDINE HCL 0.1 MG TABLET PO SCH ×3 (05:26→21:00)
[2019-08-14] MEDS: ISOSORBIDE DINITRATE (20MG) 20 MG TABLET PO SCH ×3 (05:27→21:00)
[2019-08-14] MEDS: BLOOD SUGAR DIAGNOSTIC 1 EACH STRIP IN SCH ×4 (05:39→17:06)
[2019-08-14 06:50] LABS: BASOPHILS # (AUTO) 0.1 /CMM (0.0-0.2); BASOPHILS % (AUTO) 0.6 % (0.0-2.0); EOSINOPHILS % (AUTO) 1.3 % (0.0-6.0); LYMPHOCYTES # (AUTO) 1.3 /CMM (0.8-4.8); LYMPHOCYTES % (AUTO) 13.2 % (20.0-44.0); MEAN CORPUSCULAR HGB CONC 35 g/dl (31.0-36.0); MEAN CORPUSCULAR VOLUME 85 fL (80-96); MONOCYTES # (AUTO) 1.2 /CMM (0.1-1.30); MONOCYTES % (AUTO) 11.7 % (2.0-12.0); NEUTROPHILS # (AUTO) 7.2 /CMM (1.8-8.9); NEUTROPHILS % (AUTO) 73.2 % (43.0-81.0); PLATELET COUNT (AUTO) 399 /CMM (150-450); RED BLOOD CELL COUNT(AUTO) 2.36 MIL/uL (4.5-6.0); WHITE BLOOD COUNT (AUTO) 9.9 K/uL (4.3-11.0)
[2019-08-14 06:55] LABS: HEMATOCRIT 20 % (39-51)
--- NOTE | 2019-08-14 06:58 | NUR ---
call out for h&h 7.0 & 20 two days ago 6.6 & 22 no order noted for transfusion
[2019-08-14 07:13] LABS: CALCIUM, SERUM 8.3 mg/dL (8.5-10.1); CREATININE 1.7 mg/dL (0.6-1.3); MAGNESIUM 1.6 mg/dL (1.8-2.4); POTASSIUM 5.2 mmol/L (3.5-5.1)
[2019-08-14 08:00] VITALS: BP 129/69
--- NOTE | 2019-08-14 08:00 | NUR ---
TELE1/RN AM SHIFT INITIAL NOTES RECEIVED PT ASLEEP IN BED, AROUSEABLE PT A/O X 2-3, ABLE TO MOUTH WORDS, NO GRIMACING OR ACUTE CHANGE OF CONDITION NOTED. PT ON T-PIECE WITH 28% FIO2, RESPIRATIONS EVEN & UNLABORED, LUNG SOUNDS CLEAR. SUCTIONED FOR AIRWAY CLEARANCE. ON GOING IV INFUSION OF KCL 20MEQ IN D5W @ 100CC/HR, PICC LINE PATENT WITH NO S/S OF INFECTION. CANNON CATHETER INTACT WITH CLEAR YELLOW URINE OUTPUT. LUZ CALLEJAS INTACT WITH MINIMAL SEROSANGUINEOUS OUTPUT. GT FLUSHED, PATENT, FEEDING HELD AT THIS TIME. PT IS COMFORTABLE, SCHEDULED AM MEDS TO BE GIVEN. CL WITHIN REACHED, SAFETY MAINTAINED AND ISOLATION OBSERVED. ON GOING MOTORING.
[2019-08-14] MEDS: LEVETIRACETAM SOL (5 ML) 100 MG/ML UDC GT SCH ×2 (09:04→21:42)
[2019-08-14] MEDS: DOCUSATE SODIUM LIQ 100 MG/10 ML UDC GT SCH ×2 (09:04→21:41)
[2019-08-14] MEDS: CHLORHEXIDINE GLUCONATE 15 ML UDC MM SCH (09:04)
[2019-08-14] MEDS: FERROUS SULFATE UDC 300 MG/5 ML UDC GT SCH (09:04)
[2019-08-14] MEDS: MINOXIDIL (2.5MG) 2.5 MG TABLET PO SCH (09:05)
[2019-08-14] MEDS: AMLODIPINE BESYLATE 5 MG TABLET PO SCH (09:06)
[2019-08-14] MEDS: Z GUARD REMEDY 2 OZ OINT TP SCH (09:06)
[2019-08-14] MEDS ORDERED: Magnesium 1GM/D5W 100ML PREMIX 100 ML IV SCH (09:38)
--- NOTE | 2019-08-14 10:21 | NUR ---
U/S PERC ABCESS DRAINAGE ORDERED ON 08/12/19. NO PTT ORDERED FOR PATIENT SINCE 07/30/19 WHICH IS PROCEDURAL REQUIREMENT. NOTIFIED AMADO BURT FOR BLOOD DRAW AND SHE SAID IT WILL BE DONE TOMORROW AM.
--- NOTE | 2019-08-14 10:23 | NUR ---
TELE1/RN PERCUTANEOUS ABSCESS DRAINAGE RECEIVED A CALL FROM [facility] MET-TECH TO FOLLOW-UP REGARDING THE PROCEDURE THAT WAS HELD THURSDAY BY RADIOLOGIST PER COLLAR TURNER. CONSENT WAS OBTAINED. PT WILL LIKELY TO HAVE THE PROCEDURE PERFORMED TOMORROW PER COLLAR TURNER, WILL INFORM CHARGE NURSE AND PRIMARY MD.
[2019-08-14 12:00] VITALS: BP 129/71
[2019-08-14] MEDS: IV D5/0.45 NACL 1,000 ML IV PRN (12:23)
[2019-08-14] MEDS: INSULIN REGULAR, HUMAN 100 UNIT/ML 3 ML VIAL SQ PRN ×2 (12:25→17:09)
--- NOTE | 2019-08-14 12:58 | NUR ---
TELE1/RN ROUNDS - DR. HINTON UPDATED PT'S CONDITION. PT SEEN & EXAMINED BY DR. HUDDLESTON WITH VERBAL ORDER TO GIVE KAYEXALATE 30GM VIA GT, ORDER AND CARRIED OUT. MONITORING CONTINUED.
[2019-08-14] MEDS ORDERED: SODIUM POLYSTYRENE SULFONATE 15 G/60 ML BOTTLE GT ONE (13:00)
--- NOTE | 2019-08-14 15:00 | NUR ---
TELE1/RN ROUNDS - MAYRA WALL SEEN & EXAMINED BY MAYRA WALL, PER HUMAN RESOURCE OFFICER DRAINAGE PROCEDURE CANCELLED D/T WBC NORMAL, AND TO RE-START FEEDING TO INCREASE TO GOAL TOLERATED UNTIL GOAL IS REACHED. NOTED AND CARRIED.
[2019-08-14] MEDS: NEPRO 1,000 ML BOTTLE GT PRN (15:54)
[2019-08-14 16:00] VITALS: BP 119/66
--- NOTE | 2019-08-14 19:15 | NUR ---
TELE1/RN AM SHIFT END NOTES ALL NEEDS MET. NO ACUTE CHANGE OF CONDITION NOTED DURING THE SHIFT. PT ENDORSED TO PM NURSE TO CONTINUE CARE. CL WITHIN REACHED, SAFETY MAINTAINED AND ISOLATION OBSERVED.
[2019-08-14 20:00] VITALS: BP 126/66
[2019-08-14] MEDS: SENNOSIDES 8.6 MG TABLET GT SCH (21:44)
--- NOTE | 2019-08-14 22:16 | NUR ---
RN NOTE BLOOD PRESSURE 126/68, NOTIFIED DR MCWILLIAMS THAT PATIENT HAS 3 BLOOD PRESSURE MEDICATIONS SCHEDULED, PER DR MCWILLIAMS OK TO ADMINISTER HYDRALAZINE 75MG GT, HOLD CLONIDINE 0.3MG AND ISOSORBIDE 20 MG
[2019-08-15] VITALS: BP 152/72
[2019-08-15] MEDS: INSULIN REGULAR, HUMAN 100 UNIT/ML 3 ML VIAL SQ PRN ×4 (00:29→17:53)
[2019-08-15] MEDS: BLOOD SUGAR DIAGNOSTIC 1 EACH STRIP IN SCH ×4 (00:35→17:53)
[2019-08-15] MEDS: ALBUTEROL FS 2.5 MG/0.5 ML VIAL.NEB NEB SCH ×4 (02:02→19:32)
[2019-08-15] MEDS: IV D5/0.45 NACL 1,000 ML IV PRN ×2 (03:18→17:46)
[2019-08-15 04:00] VITALS: BP 146/75
[2019-08-15] MEDS: hydrALAZINE HCL 25 MG TABLET PO SCH ×3 (05:46→22:14)
[2019-08-15] MEDS: CLONIDINE HCL 0.1 MG TABLET PO SCH ×3 (05:47→22:13)
[2019-08-15] MEDS: ISOSORBIDE DINITRATE (20MG) 20 MG TABLET PO SCH ×3 (05:47→22:14)
[2019-08-15] MEDS: MEROPENEM 1 G in IV NS 0.9% 100 ML IV SCH ×2 (05:48→16:32)
--- NOTE | 2019-08-15 07:00 | NUR ---
RN NOTES RECEIVED PT ON BED, PT ALERT, ABLE TO MOUTH WORDS, AND FOLLOWS SIMPLE COMMAND, PT ON T-PIECE WITH 28% FIO2, RESPIRATIONS EVEN & UNLABORED, D51/2NS AT 75CC /HR RUNNING VIA R UPPER ARM PICC LINE , SITE CLEAN,DRY AND INTACT, CANNON CATHETER INTACT WITH CLEAR YELLOW URINE OUTPUT. LUZ CALLEJAS INTACT WITH MINIMAL SEROSANGUINEOUS OUTPUT.SR UP x3, CALL LIGHT WITHIN EASY REACH, SAFETY MAINTAINED AND ISOLATION OBSERVED. CONTINUE TO MONITOR
--- NOTE | 2019-08-15 07:25 | NUR ---
RN NOTE PATIENT WAS STABLE DURING MY SHIFT, NO DISTRESS NOTED, ENDORSED TO AM SHIFT TO CONTINUE CARE
[2019-08-15 07:26] LABS: BASOPHILS % (AUTO) 0.4 % (0.0-2.0); EOSINOPHILS % (AUTO) 0.7 % (0.0-6.0); HEMATOCRIT 21 % (39-51); HEMOGLOBIN 7.3 g/dL (13.5-17.5); LYMPHOCYTES # (AUTO) 1.1 /CMM (0.8-4.8); LYMPHOCYTES % (AUTO) 10.5 % (20.0-44.0); MEAN CORPUSCULAR HGB CONC 34 g/dl (31.0-36.0); MEAN CORPUSCULAR VOLUME 86 fL (80-96); MONOCYTES # (AUTO) 1.2 /CMM (0.1-1.30); MONOCYTES % (AUTO) 11.5 % (2.0-12.0); NEUTROPHILS # (AUTO) 8.1 /CMM (1.8-8.9); NEUTROPHILS % (AUTO) 76.9 % (43.0-81.0); PLATELET COUNT (AUTO) 397 /CMM (150-450); WHITE BLOOD COUNT (AUTO) 10.5 K/uL (4.3-11.0)
[2019-08-15 07:48] LABS: CALCIUM, SERUM 8.3 mg/dL (8.5-10.1); CREATININE 1.6 mg/dL (0.6-1.3); MAGNESIUM 1.7 mg/dL (1.8-2.4); PHOSPHORUS 4.2 mg/dL (2.5-4.9); POTASSIUM 3.9 mmol/L (3.5-5.1)
--- NOTE | 2019-08-15 07:50 | NUR ---
RN NOTES PT VOMITTED MODERATE AMOUNT OF GASTRIC CONTENT, TF HELD AT THIS TIME.
[2019-08-15] MEDS: ONDANSETRON HCL/PF 4 MG/2 ML VIAL IV PRN (07:51)
[2019-08-15 08:00] VITALS: BP 142/98
[2019-08-15] MEDS: DOCUSATE SODIUM LIQ 100 MG/10 ML UDC GT SCH ×2 (08:51→22:12)
[2019-08-15] MEDS: LEVETIRACETAM SOL (5 ML) 100 MG/ML UDC GT SCH ×2 (08:51→22:12)
[2019-08-15] MEDS: FERROUS SULFATE UDC 300 MG/5 ML UDC GT SCH (08:51)
[2019-08-15] MEDS: MINOXIDIL (2.5MG) 2.5 MG TABLET PO SCH (08:52)
[2019-08-15] MEDS: CHLORHEXIDINE GLUCONATE 15 ML UDC MM SCH (08:52)
[2019-08-15] MEDS: FAMOTIDINE/PF INJ 20 MG/2 ML VIAL IV SCH (08:53)
[2019-08-15] MEDS: AMLODIPINE BESYLATE 5 MG TABLET PO SCH (08:53)
[2019-08-15] MEDS: Z GUARD REMEDY 2 OZ OINT TP SCH (08:54)
[2019-08-15] MEDS: MORPHINE SULFATE INJ 2 MG/ML DISP.SYRIN IV PRN (09:26)
--- NOTE | 2019-08-15 10:47 | NUR ---
RN NOTES NO TF RESIDUAL NOTED, TF RESTARTED AT 20CC/HR .CONTINUE TO MONITOR .
[2019-08-15 12:00] VITALS: BP 156/76
[2019-08-15] MEDS ORDERED: Magnesium 1GM/D5W 100ML PREMIX 100 ML IV SCH (12:00)
--- NOTE | 2019-08-15 14:00 | NUR ---
RN NOTES TF INCREASED TO 30CC/HR , AT THIS TIME, NO TF RESIDUAL NOTED,.
[2019-08-15] MEDS: NEPRO 1,000 ML BOTTLE GT PRN (15:23)
[2019-08-15 16:00] VITALS: BP 109/56
--- NOTE | 2019-08-15 18:00 | NUR ---
RN NOTES PT STABLE , TOLERATING TF AT 30CC/HR WELL AT THIS TIME , WILL ENDOSE TO BAGGAGE AND MAIL AGENT NURSE FOR CONTINUITY OF CARE .
--- NOTE | 2019-08-15 18:48 | NUR ---
RT END OF THE SHIFT REPORT, PT. 33 Y OLD MALE PT. RECEIVED @ 0700 AM TRACH'D ON AEROSOL, REMAIN STABLE. TX'S GIVEN LITZY WELL. PT. REMAIN STABLE. VENT STAND BY AT THE BEDSIDE. PT SUX'D MINIMAL MCCLOUD SECRETIONS. B/S COARSE BILATERALLY, EQUAL CHEST RISE NOTED. AMBU BAG AT BEDSIDE. TRACH CARE DONE, INNER CANNULA CHANGED EXTRA TRACH AT THE BEDSIDE, WILL CONTINUE TO MONITOR. REPORT WILL PASS TO PM SHIFT. Addendum: 08/15/19 at 1850 by SHAWN CASTILLO RT Amended: Links added.
--- NOTE | 2019-08-15 19:47 | NUR ---
RT NOTE: RECEIVED TRACH PT ON COOL AEROSOL. AMBU BAG @ BEDSIDE. Q6 BREATHING TX GIVEN PER MD ORDERS WITH NO ADVERSE REACTION NOTED. SX DONE PRN. TRACH PATENT AND SECURED. NO RESP DISTRESS NOTED AT THIS TIME. WILL CONTINUE TO MONITOR PT. Addendum: 08/16/19 at 0627 by GATO MICHELE RT Amended: Links added.
[2019-08-15 20:00] VITALS: BP 134/64
[2019-08-15] MEDS: SENNOSIDES 8.6 MG TABLET GT SCH (22:13)
[2019-08-16] VITALS: BP_SYST 133; BP_SYST 144; BP_DIAS 67; BP_DIAS 68
[2019-08-16] MEDS: INSULIN REGULAR, HUMAN 100 UNIT/ML 3 ML VIAL SQ PRN ×3 (00:40→12:20)
[2019-08-16] MEDS: BLOOD SUGAR DIAGNOSTIC 1 EACH STRIP IN SCH ×3 (00:40→12:12)
[2019-08-16] MEDS: ALBUTEROL FS 2.5 MG/0.5 ML VIAL.NEB NEB SCH ×2 (00:51→08:12)
[2019-08-16 04:00] VITALS: BP 140/67
[2019-08-16] MEDS: hydrALAZINE HCL 25 MG TABLET PO SCH ×2 (06:22→12:18)
[2019-08-16] MEDS: ISOSORBIDE DINITRATE (20MG) 20 MG TABLET PO SCH ×2 (06:23→12:17)
[2019-08-16] MEDS: CLONIDINE HCL 0.1 MG TABLET PO SCH ×2 (06:23→12:17)
[2019-08-16] MEDS: IV D5/0.45 NACL 1,000 ML IV PRN (06:26)
[2019-08-16 07:08] LABS: CALCIUM, SERUM 8.1 mg/dL (8.5-10.1); CREATININE 1.6 mg/dL (0.6-1.3); POTASSIUM 3.9 mmol/L (3.5-5.1)
--- NOTE | 2019-08-16 07:45 | NUR ---
RN NOTE: RECEIVED PATIENT IN BED AWAKE, ALERT X 2 AND NONVERBAL BUT ABLE TO MOUTH WORDS. HOB ELEVATED. ON CONTACT ISOLATION FOR MRSA URINE. AFEBRILE. SKIN WARM TO TOUCH. ON GT FEEDING OF NEPHRO @45ML/HR AND TOLERATING IT WELL. NO N/V NOTED AND NO RESIDUAL NOTED. ON [address] [address] HR= 103. (R) UA PICC LINE NOTED INTACT AND PATENT INFUSING D5 1/2 NS @75ML/HR. CANNON CATHETER IN PLACED WITH YELLOW URINE DRAINING TO GRAVITY. HOB ELEVATED. BED ALARMED AND LOCKED AT ALL TIMES. CALL LIGHT WITHIN REACH. NEEDS ANTICIPATED.
[2019-08-16 08:00] VITALS: BP_SYST 160; BP_SYST 169; BP_DIAS 77; BP_DIAS 79
[2019-08-16] MEDS ORDERED: ISOS20TA8 PO (08:02)
[2019-08-16] MEDS: LEVETIRACETAM SOL (5 ML) 100 MG/ML UDC GT SCH (09:08)
[2019-08-16] MEDS: DOCUSATE SODIUM LIQ 100 MG/10 ML UDC GT SCH (09:08)
[2019-08-16] MEDS: FERROUS SULFATE UDC 300 MG/5 ML UDC GT SCH (09:08)
[2019-08-16] MEDS: CHLORHEXIDINE GLUCONATE 15 ML UDC MM SCH (09:09)
[2019-08-16] MEDS: AMLODIPINE BESYLATE 5 MG TABLET PO SCH (09:09)
[2019-08-16] MEDS: MINOXIDIL (2.5MG) 2.5 MG TABLET PO SCH (09:10)
[2019-08-16] MEDS: Z GUARD REMEDY 2 OZ OINT TP SCH (09:15)
--- NOTE | 2019-08-16 11:43 | NUR ---
RN NOTE: CALLED AND SPOKE WITH AMADO SOMMERS FROM [facility] AND GAVE HER AN EXTENSIVE REPORT REGARDING THE PATIENT'S HOSPITALIZATION AND PLAN OF CARE UPON DISCHARGE. RN WAS INFORMED THAT PATIENT'S ETA FOR THE AMBULANCE WILL BE AT 1300 VIA AMBULANCE.
[2019-08-16 12:00] VITALS: BP 159/74
[2019-08-16 12:18] VITALS: BP 159/74
--- NOTE | 2019-08-16 13:00 | NUR ---
RN NOTE: PATIENT'S JOSE MARTIN DRAIN ON THE (R) ABDOMINAL LOWER QUADRANT WAS REMOVED BY Niyah WALL NP AT THE BEDSIDE AND PER HER ORDER, 8 YOGI FROM THE S/P LAPAROSCOPIC CHOLECYSTECTOMY WAS REMOVED BY RN. SURGICAL SITE WAS NOTED CLEAN AND DRY. TOOK PICTURE OF THE ABDOMINAL AREA AND FILED TO PATIENT'S CHART.
--- NOTE | 2019-08-16 13:05 | NUR ---
RN NOTE: PATIENT WAS DISCHARGED BACK TO [facility] PER DR. MARTINEZ'S ORDER. PATIENT WAS AWAKE AND ALERT UPON TRANSFER BACK TO SNF. EXIT CARE WAS DONE AND ALL PAPERWORK WAS RELEASED INCLUDING MEDICATION RECONCILIATION. (R) UA PICC LINE AND CANNON CATHETER WAS IN PLACED. EMPTIED CANNON CATHETER WITH 850 ML OF YELLOW URINE. NO BM NOTED WITHIN THE SHIFT.
== END 2019-08-16 14:17 | DRG 710 ==
LOC: ER 10:35 → TELE-TD 14:58 → ICU 07-31 00:21 → TELE1 08-03 06:01
PROVIDERS: ADMIT Internal Medicine Nephrology; ATTEND Internal Medicine
DX: A41.9 Sepsis, unspecified organism (principal); J96.20 Acute and chronic respiratory failure, unspecified whether with hypoxia or hypercapnia; N17.0 Acute kidney failure with tubular necrosis; Z99.11 Dependence on respirator [ventilator] status; J18.9 Pneumonia, unspecified organism; K82.A2 Perforation of gallbladder in cholecystitis; Z93.0 Tracheostomy status; K65.3 Choleperitonitis; E11.22 Type 2 diabetes mellitus with diabetic chronic kidney disease; N18.9 Chronic kidney disease, unspecified; N39.0 Urinary tract infection, site not specified; E87.6 Hypokalemia; G40.909 Epilepsy, unspecified, not intractable, without status epilepticus; K82.A1 Gangrene of gallbladder in cholecystitis; E87.5 Hyperkalemia; E86.0 Dehydration; Z87.820 Personal history of traumatic brain injury; Z87.440 Personal history of urinary (tract) infections; Z93.1 Gastrostomy status; R13.10 Dysphagia, unspecified; D64.9 Anemia, unspecified; R74.0 Nonspecific elevation of levels of transaminase and lactic acid dehydrogenase [LDH]; E88.09 Other disorders of plasma-protein metabolism, not elsewhere classified; E87.0 Hyperosmolality and hypernatremia; Z79.4 Long term (current) use of insulin; J98.11 Atelectasis; I69.351 Hemiplegia and hemiparesis following cerebral infarction affecting right dominant side; I12.9 Hypertensive chronic kidney disease with stage 1 through stage 4 chronic kidney disease, or unspecified chronic kidney disease; B96.89 Other specified bacterial agents as the cause of diseases classified elsewhere
CPT/HCPCS: 31720; 36415; 36569; 36600; 71045-TC; 71250-TC; 76700-TC; 78226; 80048-TC; 80053-TC; 80076-TC; 80202-TC; 81000-TC; 82150-TC; 82570-TC; 82728-TC; 82803-TC; 82962-TC; 83540-TC; 83605-TC; 83735-TC; 84100-TC; 84300-TC; 84484-TC; 85025-TC; 85610-TC; 85730-TC; 86706; 86850-TC; 87040-TC; 87081-TC; 87086-TC; 87186-TC; 87340; 88304-TC; 88307-TC; 88313-TC; 90935-TC; 93971-TC; 94002-TC; 94003-TC; 94640-TC; 94760-TC; 94762-TC; 94799-TC; 99082-TC; A4216; A4217; A4623; A6403; A7526; A9537; C1750; C1751; G0378; J0690; J0692; J1100; J1450; J1644; J1815; J1885; J1940; J1953; J2020; J2185; J2250; J2270; J2405; J2543; J2704; J2765; J3010; J3370; J3475; J3480; J3490; J7030; J7040; J7042; J7050; J7060; J7070; J8597; Q9963

== ENCOUNTER 2019-09-09 17:04 | Inpatient (IN) | payer OTHER ==
[~2019-09-09] VITALS: Ht 172.7 cm; Wt 82.6 kg
[~2019-09-09 17:04] MED LIST changes: -ACET500C4 GT; -CRAN3875 GT; +EPOE1VIA12 SQ; +FERR300L GT; -FURO-145 GT; -INSU100I14 SQ; +INSU100I26 SQ; +INSU100V36 SQ; -INSU100V7 SQ; +ISOS20TA8 GT; +ISOS20TA8 PO; -Isosorbide Mononitrate (30MG) PO; -LINA5TAB PO; -LOSA100T31 GT; +NUT.237L67 GT; +NUTR1PAC14 GT; +SENN-168 GT; +SITA50TA GT; +SODI10PO GT; -TAMS-12 PO
[2019-09-09] MEDS ORDERED: VANCOMYCIN 1 GM in IV D5W 250 ML IV ONE (17:30)
[2019-09-09] MEDS ORDERED: PIPERACILLIN /TAZOBACTAM 3.375 G in IV D5W 50 ML IV ONE (17:30)
--- NOTE | 2019-09-09 17:38 | NUR ---
RT NOTE PT PLACED ON VENT PER MD ORDER. RECEIVED PT BEING BAGGED BY PARAMEDICS. SETTINGS FOLLOW AC 14 550 100% +5. ALARMS SET PER PROTOCOL AND AUDIBLE. VENT PLUGGED IN TO RED OUTLET. AMBU BAG AT BED SIDE. PT HAS PORTEX [address] CUFFLESS [address]UBE IN PLACE. TRACH TUBE MIDLINE AND SECURE. PT AWAKE AND ALERT. SPEAKING MODE TURNED ON ESPRIT VENT DUE TO CUFF LESS TRACH. PT AWAKE AND ALERT. NO DISTRESS NOTED AT MOMENT. Addendum: 09/09/19 at 1741 by HORACE FOFANA RT Amended: Links added.
[2019-09-09 17:50] LABS: BASOPHILS # (AUTO) 0.1 /CMM (0.0-0.2); BASOPHILS % (AUTO) 0.3 % (0.0-2.0); EOSINOPHILS % (AUTO) 0.4 % (0.0-6.0); HEMATOCRIT 24 % (39-51); HEMOGLOBIN 8.1 g/dL (13.5-17.5); LYMPHOCYTES # (AUTO) 0.6 /CMM (0.8-4.8); LYMPHOCYTES % (AUTO) 3.2 % (20.0-44.0); MEAN CORPUSCULAR HGB CONC 34 g/dl (31.0-36.0); MEAN CORPUSCULAR VOLUME 90 fL (80-96); MONOCYTES # (AUTO) 1.5 /CMM (0.1-1.30); MONOCYTES % (AUTO) 8.7 % (2.0-12.0); NEUTROPHILS # (AUTO) 15.6 /CMM (1.8-8.9); NEUTROPHILS % (AUTO) 87.4 % (43.0-81.0); PLATELET COUNT (AUTO) 171 /CMM (150-450); RED BLOOD CELL COUNT(AUTO) 2.64 MIL/uL (4.5-6.0); WHITE BLOOD COUNT (AUTO) 17.8 K/uL (4.3-11.0)
[2019-09-09 18:24] LABS: ALANINE AMINOTRANSFERASE 14 U/L (12-78); ALBUMIN 2.3 g/dL (3.4-5.0); ALKALINE PHOSPHATASE 228 U/L (46-116); ASPARTATE AMINOTRANSFERASE 23 U/L (15-37); B-TYPE NATRIURETIC PEPTIDE 12648 PG/ML (0-125); BILIRUBIN,DIRECT 0.2 mg/dL (0.0-0.2); BILIRUBIN,TOTAL 0.5 mg/dL (0.2-1.0); CALCIUM, SERUM 9.5 mg/dL (8.5-10.1); CARBON DIOXIDE 25 mmol/L (21-32); CHLORIDE 89 mmol/L (98-107); GLUCOSE 187 mg/dL (74-106); POTASSIUM 4.6 mmol/L (3.5-5.1); SODIUM SERUM 124 mmol/L (136-145); TOTAL PROTEIN, SERUM 7.3 g/dL (6.4-8.2)
[2019-09-09 18:31] LABS: UREA NITROGEN, BLOOD 137 mg/dL (7-18)
[2019-09-09 18:39] LABS: LYMPHOCYTES % (MANUAL) 4 % (16-48); MONOCYTES % (MANUAL) 6 % (0-11.0); NEUTROPHILS % (MANUAL) 90 (42-76)
--- NOTE | 2019-09-09 21:15 | NUR ---
VERBAL AUTH FROM [facility]
--- NOTE | 2019-09-09 21:20 | NUR ---
CALLED [facility], PAGED KAREN AYALA
--- NOTE | 2019-09-09 21:34 | NUR ---
PT ASSIGNED 257.
[2019-09-09] MEDS ORDERED: FUROSEMIDE 40 MG/4 ML VIAL IV ONE (22:00)
[2019-09-09] MEDS ORDERED: FUROSEMIDE 40 MG/4 ML VIAL ONE (22:06)
--- NOTE | 2019-09-09 22:09 | NUR ---
REPORT GIVEN TO MURIEL FISCHER FOR SALLY PT WILL BE TRANSPORTED TO ICU
--- NOTE | 2019-09-09 22:25 | NUR ---
RECEIVED PATIENT IN NO ACUTE DISTRESS IN BED. PATIENT IS A/O X 1. PATIENT HAS RIGHT SIDE DEFICIT DUE TO CVA. PATIENT IS ON O2 VIA PORTEX # 7 TRACH. PATIENT IS ON MECHANICAL VENT WITH SETTING AT AC 14, TV 550, FIO2 100%, PEEP 5. PATIENT IS ON TELEMETRY WITH SINUS RHYTHM ON THE MONITOR. PATIENT HAS GTUBE THAT IS CLEAN DRY INTACT AND PATENT WITH FREE WATER FLUSH. PATIENT HAS LEFT UPPER ARM 20G THAT IS CLEAN DRY INTACT AND PATENT WITH SALINE LOCK. FOUND TIGHT TOURNIQUET ON PATIENT LEFT UPPER ARM AND REMOVED IMMEDIATELY. PATIENT HAS RED JONNY FROM TOURNIQUET, PICTURE TAKEN AND PLACED IN CHART. PULSES PRESENT ON LEFT RADIAL AND BRACHIAL, SKIN WARM AND DRY WITH QUICK CAPILLARY RETURN. BED IN LOW LOCK POSITION WITH RIALS UP X 2. CALL LIGHT WITHIN REACH AND ALL SAFETY MEASURES ENSURED AND CARRIED OUT. WILL CONTINUE TO MONITOR PATIENT.
[2019-09-09] MEDS ORDERED: BISACODYL SUPP (10 MG) 10 MG/SUPP.RECT SUPP.RECT RC PRN (22:30)
[2019-09-09] MEDS ORDERED: MORPHINE SULFATE INJ 2 MG/ML DISP.SYRIN IV PRN (22:30)
[2019-09-09] MEDS ORDERED: MAGNESIUM HYDROXIDE 30 ML UDC GT PRN (22:30)
[2019-09-09] MEDS ORDERED: ONDANSETRON HCL/PF 4 MG/2 ML VIAL IVP PRN (22:30)
[2019-09-09] MEDS ORDERED: NA PHOS,M-B/NA PHOS,DI-BA 1 EA ENEMA RC PRN (22:30)
[2019-09-09] MEDS ORDERED: ACETAMINOPHEN 325 MG TABLET PO PRN (22:30)
[2019-09-09 22:46] VITALS: BP 129/66
[2019-09-09] MEDS ORDERED: BUMETANIDE INJ 0.25 MG/ML VIAL ONE (22:46)
[2019-09-09 22:48] VITALS: BP 131/60
[2019-09-09] MEDS ORDERED: NEPRO VAN 237 ML CAN GT SCH (23:00)
[2019-09-09] MEDS ORDERED: NS 0.9% IV ONE (23:00)
[2019-09-09] MEDS ORDERED: MEROPENEM 500 MG in IV NS 0.9% 50 ML IV SCH (23:00)
[2019-09-09] MEDS ORDERED: BUMETANIDE IV ONE (23:00)
[2019-09-09 23:02] VITALS: BP 137/61
--- NOTE | 2019-09-09 23:06 | NUR ---
RECEIVED ORDERS FROM DR. KAREN AYALA TO PLACE CANNON CATHETER BECAUSE PATIENT IS GETTING BUMEX IV AND MIDLINE DUE TO POOR IV ACCESS. READBACK ORDERS PERFORMED AND CARRIED OUT.
[2019-09-09] MEDS ORDERED: MEROPENEM 500 MG VIAL IV ONE (23:09)
[2019-09-10] VITALS (35 sets, daily range): BP systolic 118–166; BP diastolic 60–84
[2019-09-10 00:22] LABS: APPEARANCE,URINE CLEAR (CLEAR); COLOR,URINE YELLO (YELLOW)
[2019-09-10 00:23] LABS: PH,URINE 5.5 (5.0-8.0); UGLUCOSE 250 MG/DL mg/dL (NEGATIVE)
[2019-09-10 00:24] LABS: BILIRUBIN,URINE NEGATIVE (NEGATIVE); BLOOD, URINE NEGATIVE Ery/uL (NEGATIVE); KETONES,URINE NEGATIVE (NEGATIVE); UROBILINOGEN,URINE 0.2 EU/dL (0.2)
[2019-09-10 00:25] LABS: LEUKOCYTE ESTERASE ,URINE NEGATIVE (NEGATIVE); NITRITE, URINE NEGATIVE (NEGATIVE); PROTEIN,URINE 100 mg/dl (NEGATIVE)
[2019-09-10 00:32] LABS: BACTERIA,URINE Few /HPF (None Seen); FINE GRANULAR CASTS,URINE Rare /LPF (None Seen); RBC,URINE 0-2 /HPF (0-2); SQUAMOUS EPITHELIAL CELL,UR Few /HPF (None Seen); WBC,URINE 0-2 /HPF (0-3)
[2019-09-10] MEDS ORDERED: CLONIDINE HCL 0.1 MG TABLET PO SCH (05:00)
[2019-09-10] MEDS ORDERED: LABETALOL HCL 300 MG TABLET GT SCH (05:00)
[2019-09-10] MEDS: hydrALAZINE HCL 25 MG TABLET GT SCH ×3 (05:14→21:33)
[2019-09-10] MEDS: METOCLOPRAMIDE HCL 10 MG TABLET GT SCH ×3 (05:15→21:32)
[2019-09-10 05:18] LABS: BASOPHILS # (AUTO) 0.1 /CMM (0.0-0.2); BASOPHILS % (AUTO) 0.4 % (0.0-2.0); EOSINOPHILS % (AUTO) 0.1 % (0.0-6.0); HEMATOCRIT 23 % (39-51); HEMOGLOBIN 7.9 g/dL (13.5-17.5); LYMPHOCYTES # (AUTO) 0.5 /CMM (0.8-4.8); LYMPHOCYTES % (AUTO) 3.4 % (20.0-44.0); MEAN CORPUSCULAR HGB CONC 34 g/dl (31.0-36.0); MEAN CORPUSCULAR VOLUME 89 fL (80-96); MONOCYTES # (AUTO) 1.3 /CMM (0.1-1.30); MONOCYTES % (AUTO) 8.3 % (2.0-12.0); NEUTROPHILS # (AUTO) 13.8 /CMM (1.8-8.9); NEUTROPHILS % (AUTO) 87.8 % (43.0-81.0); PLATELET COUNT (AUTO) 177 /CMM (150-450); RED BLOOD CELL COUNT(AUTO) 2.62 MIL/uL (4.5-6.0); WHITE BLOOD COUNT (AUTO) 15.8 K/uL (4.3-11.0)
[2019-09-10 05:39] LABS: ALBUMIN 2.3 g/dL (3.4-5.0); BILIRUBIN,TOTAL 0.6 mg/dL (0.2-1.0); CALCIUM, SERUM 9.2 mg/dL (8.5-10.1); CREATININE 3.8 mg/dL (0.6-1.3); MAGNESIUM 3.1 mg/dL (1.8-2.4); PHOSPHORUS 4.3 mg/dL (2.5-4.9); POTASSIUM 4.2 mmol/L (3.5-5.1); TOTAL PROTEIN, SERUM 7.2 g/dL (6.4-8.2)
[2019-09-10 06:12] LABS: THYROID STIMULATING HORMONE 3.565 uIU/mL (0.358-3.74)
--- NOTE | 2019-09-10 06:35 | NUR ---
PATIENT REMAINS IN NO ACUTE DISTRESS IN BED. PATIENT DID NOT HAVE ANY SIGNIFICANT CHANGE IN CONDITION DURING SHIFT. PATIENT TOLERATED VENT SETTING WELL. ALL NEEDS MET, ALL ORDERS CARRIED OUT. WILL ENDORSE CARE TO AM RN FOR CONTINUITY OF CARE.
--- NOTE | 2019-09-10 07:15 | NUR ---
DINING CAR STEWARD INITIAL NOTES Rec'd pt awake on bed, not in any distress, A/O x1. On MV via trach, sating at 100%. SR on telemonitor. Has SHARON G20 SL & TOM midline SL, flushing well w/ no s/sx of infection/infiltration noted, Addendum: 09/10/19 at 1101 by DARION DUMAS RN Addendum: Has GT clamped, NPO for now as ordered. Has FC draining to BSB w/ yellowish UOP. Safety precaution in place w/ bed in lowest & locked pos. Call light placed w/in reach. Will continue to monitor & attend pt needs.
[2019-09-10] MEDS ORDERED: FEE PK DOSING 1 MIN EA MC ONE (07:21)
[2019-09-10] MEDS ORDERED: ACETAMINOPHEN 650 MG/20.3 ML UDC GT PRN (07:30)
--- NOTE | 2019-09-10 08:56 | NUR ---
Pt seen & examined by Dr. Andujar w/ orders made & carried out. Per MD, may start on moderate sliding scale q6h.
[2019-09-10] MEDS ORDERED: DEXTROSE 50%-WATER 50 ML DISP.SYRIN IV PRN (09:00)
[2019-09-10] MEDS: FERROUS SULFATE UDC 300 MG/5 ML UDC GT SCH (09:11)
[2019-09-10] MEDS: CHLORHEXIDINE GLUCONATE 15 ML UDC MM SCH (09:11)
[2019-09-10] MEDS: LINAGLIPTIN 5 MG TABLET GT SCH (09:12)
[2019-09-10] MEDS: MINOXIDIL (2.5MG) 2.5 MG TABLET GT SCH (09:12)
[2019-09-10] MEDS: AMLODIPINE BESYLATE 10 MG TABLET GT SCH (09:12)
[2019-09-10] MEDS: LEVETIRACETAM SOL (5 ML) 100 MG/ML UDC GT SCH ×2 (09:12→21:32)
[2019-09-10] MEDS: FAMOTIDINE (20 MG) 20 MG TABLET GT SCH (09:12)
[2019-09-10] MEDS: ISOSORBIDE DINITRATE (20MG) 20 MG TABLET GT SCH ×3 (09:13→16:17)
[2019-09-10] MEDS: Z GUARD REMEDY 2 OZ OINT TP PRN (09:13)
[2019-09-10] MEDS: SPIRONOLACTONE 25 MG TABLET GT SCH (09:13)
[2019-09-10] MEDS: HEPARIN SODIUM, PORCINE 5000 UNITS/1 ML VIAL SQ SCH ×2 (09:16→21:36)
--- NOTE | 2019-09-10 11:25 | NUR ---
Pt seen & examined by Dr. Day, ordered for CXR.
[2019-09-10] MEDS: MEROPENEM 1 G in IV NS 0.9% 100 ML IV SCH ×2 (11:28→22:21)
[2019-09-10] MEDS: BLOOD SUGAR DIAGNOSTIC 1 EACH STRIP IN SCH ×3 (11:28→23:33)
--- NOTE | 2019-09-10 12:00 | NUR ---
ABG results relayed to Dr. Sigrid corcoran/ DO, keep current MV settings. RT made aware.
[2019-09-10] MEDS: CLONIDINE HCL 0.1 MG TABLET GT SCH ×2 (12:10→21:33)
[2019-09-10] MEDS: LABETALOL HCL (100MG) 100 MG TABLET GT SCH ×2 (12:11→21:34)
--- NOTE | 2019-09-10 12:30 | NUR ---
EVEB results relayed to Dr. Andujar. Per MD, may start GTF per RD recommendation (Nepro x 40cc/hr). start colace 100 mg BID via GT & miralax via GT HS.
[2019-09-10 13:34] LABS: ABG BASE EXCESS 2.1 mmol/L; ABG OXYGEN SATURATION 96.7 % (92.0-98.5); ABG PCO2 38.6 mmHg (35.0-45.0); ABG PO2 94.3 mmHg (75.0-100.0); COHb 0.4 % (0.5-1.5); MetHb 0.7 % (0.0-1.5); O2Hb 95.6 % (94.0-97.0); SITE, ABG Left Radial; VENT MODE, BG AC 14 550 +5 60%
[2019-09-10] MEDS: DOCUSATE SODIUM LIQ 100 MG/10 ML UDC NG SCH (16:17)
[2019-09-10] MEDS: VANCOMYCIN 1 GM in IV D5W 250 ML IV SCH (17:08)
[2019-09-10] MEDS: INSULIN REGULAR, HUMAN 100 UNIT/ML 3 ML VIAL SQ PRN ×2 (17:09→23:35)
[2019-09-10] MEDS: NEPRO 1,000 ML BOTTLE GT PRN (17:25)
--- NOTE | 2019-09-10 18:46 | NUR ---
HYDRODYNAMICS PROFESSOR INITIAL NOTES No significant changes noted w/in shift. Pt tolerated MV settings via trach, sating at 100%. Remains SR on telemonitor. IV line access kept patent & intact w/ no s/sx of infection/infiltration noted. Pt started on GTF x 10cc/hr infusing well, monitored for gastric residuals. FC draining to BSB w/ yellowish UOP. Safety precaution kept in place w/ bed in lowest & locked pos. Call light placed w/in reach. Will endorse to PM RN for SALLY. Addendum: 09/11/19 at 0715 by DARION DUMAS RN CORRECTION: HYDRODYNAMICS PROFESSOR CLOSING NOTES
--- NOTE | 2019-09-10 19:45 | NUR ---
REGINALDO/BRIQUETTING MACHINE OPERATOR RECEIVED REPORT FROM DAY SHIFT NURSE. SEE FLOWSHEET FOR ASSESSMENT. THERE ARE A FEW SKIN ISSUES THAT PT HAS, WHICH IS ADDRESSED ON FLOWSHEET ALONG WITH THE INTERVENTION TO EACH.PT HAS G/TUBE WHICH HE IS TOLERATING THE FEEDING. PT WAS THEN TURNED AND REPOSITIONED FOR COMFORT AND CARE. WILL MONITOR THIS PT.
--- NOTE | 2019-09-10 20:21 | NUR ---
ICU/CONSTRUCTION PIT WORKER RT DECREASED THE FIO2 OF THIS PT TO 50% FROM 60 WHICH WAS PT WAS ON DURING THE CHANGE OF SHIFT. WILL CONTINUE TO MONITOR THIS PT AND HIS SATURATION.
[2019-09-10] MEDS: POLYETHYLENE GLYCOL 3350 17 GM POWD.PACK PO SCH (21:31)
[2019-09-10] MEDS: SENNOSIDES 8.6 MG TABLET GT SCH (21:31)
[2019-09-10] MEDS: DOXAZOSIN MESYLATE (4 MG) 4 MG TABLET GT SCH (21:34)
--- NOTE | 2019-09-10 22:30 | NUR ---
ICU/CAMPAIGN MARKETING SPECIALIST PT APPEARED TO BE UNCOMFORTABLE, USING FLACC SCALE PT WAS FOUND TO HAVE PAIN SCALE ABOUT 5/10. TYLENOL 650 MG VIA G/TUBE WAS GIVEN FOR THIS. WILL CONTINUE TO MONITOR PT'S PAIN SCALE.
--- NOTE | 2019-09-10 23:20 | NUR ---
ICU/PROSTHETIST SEEN AN ORDER CAME UP ON SCREEN FROM DR AYALA FOR BUMEX. MADE CHARGE NURSE AWARE OF NEW ORDER. WAIT TO HAVE PHARMACY TO VERIFY ORDER.
[2019-09-10] MEDS ORDERED: NS 0.9% IV ONE (23:30)
[2019-09-10] MEDS ORDERED: BUMETANIDE IV ONE (23:30)
[2019-09-10] MEDS ORDERED: BUMETANIDE INJ 0.25 MG/ML VIAL ONE (23:37)
--- NOTE | 2019-09-10 23:58 | NUR ---
ICU/TANK SYSTEMS MAINTAINER BUMEX DRIP WAS STARTED BY CHARGE NURSE, WILL CONTINUE TO MONITOR PT'S BLOOD PRESSURE SINCE PT HAD RECEIVED MANY PM BLOOD PRESSURE MEDICATION.
[2019-09-11] VITALS (25 sets, daily range): BP systolic 111–149; BP diastolic 57–76
--- NOTE | 2019-09-11 04:30 | NUR ---
ICU/CHILDREN'S COUNSELOR AM LABS WERE DRAWN, AWAIT FOR ANY CRITICAL LAB VALUES.
[2019-09-11] MEDS ORDERED: LABETALOL HCL (100MG) 100 MG TABLET ONE (04:36)
[2019-09-11] MEDS: METOCLOPRAMIDE HCL 10 MG TABLET GT SCH ×3 (04:45→21:51)
[2019-09-11] MEDS: LABETALOL HCL (100MG) 100 MG TABLET GT SCH ×3 (04:46→21:50)
[2019-09-11 04:56] LABS: BASOPHILS % (AUTO) 0.5 % (0.0-2.0); EOSINOPHILS % (AUTO) 3.4 % (0.0-6.0); HEMATOCRIT 21 % (39-51); HEMOGLOBIN 7.1 g/dL (13.5-17.5); LYMPHOCYTES # (AUTO) 0.9 /CMM (0.8-4.8); LYMPHOCYTES % (AUTO) 9.9 % (20.0-44.0); MEAN CORPUSCULAR HGB CONC 34 g/dl (31.0-36.0); MEAN CORPUSCULAR VOLUME 89 fL (80-96); MONOCYTES # (AUTO) 1.2 /CMM (0.1-1.30); MONOCYTES % (AUTO) 13.2 % (2.0-12.0); NEUTROPHILS # (AUTO) 6.6 /CMM (1.8-8.9); PLATELET COUNT (AUTO) 197 /CMM (150-450); RED BLOOD CELL COUNT(AUTO) 2.35 MIL/uL (4.5-6.0); WHITE BLOOD COUNT (AUTO) 9.1 K/uL (4.3-11.0)
[2019-09-11 05:00] LABS: CALCIUM, SERUM 9.1 mg/dL (8.5-10.1); CREATININE 3.7 mg/dL (0.6-1.3); MAGNESIUM 3.2 mg/dL (1.8-2.4); PHOSPHORUS 4.2 mg/dL (2.5-4.9); POTASSIUM 3.6 mmol/L (3.5-5.1)
[2019-09-11] MEDS: hydrALAZINE HCL 25 MG TABLET GT SCH ×3 (05:30→21:49)
--- NOTE | 2019-09-11 05:30 | NUR ---
REGINALDO/SEISMOGRAPH HELPER PT WAS GIVEN AM CARE, ALONG WITH ORAL CARE. PT TOLERATED THIS WELL REMAINS ON CURRENT VENT SETTINGS WITH SATURATION AT 100%. PT WAS TUNED AND REPOSITIONED FOR COMFORT AND CARE. WILL CONTINUE TO MONITOR THIS PT. NO ACUTE DISTRESS SEEN. PT HAD LARGE BM.
[2019-09-11] MEDS: CLONIDINE HCL 0.1 MG TABLET GT SCH ×3 (05:32→21:50)
[2019-09-11] MEDS: BLOOD SUGAR DIAGNOSTIC 1 EACH STRIP IN SCH ×4 (05:35→23:05)
[2019-09-11] MEDS: INSULIN REGULAR, HUMAN 100 UNIT/ML 3 ML VIAL SQ PRN ×4 (05:36→23:11)
--- NOTE | 2019-09-11 06:15 | NUR ---
REGINALDO/GAS PUMPING STATION SUPERVISOR PT'S MORNING BLOOD SUGAR WAS IN THE 170'S, THIS WAS COVERED WITH THE SLIDING SCALE. WILL CONTINUE TO MONITOR THE BLOOD SUGAR ORDERED. PT WAS TUNED AND REPOSITIONED FOR COMFORT AND CARE.
--- NOTE | 2019-09-11 07:13 | NUR ---
FIREWALL ENGINEER INITIAL NOTES Rec'd pt asleep on bed, not in any distress, A/O x1. On MV via trach, sating at 100%. SR on telemonitor. Has SHARON G20 SL & TOM midline w/ Bumex drip infusing well, no s/sx of infection/infiltration noted. Has GT on Nepro x 20cc/hr infusing well. Has FC draining to BSB w/ yellowish UOP. Safety precaution in place w/ bed in lowest & locked pos. Call light placed w/in reach. Will continue to monitor & attend pt needs.
[2019-09-11] MEDS: LINAGLIPTIN 5 MG TABLET GT SCH (08:13)
[2019-09-11] MEDS: SPIRONOLACTONE 25 MG TABLET GT SCH (08:13)
[2019-09-11] MEDS: FAMOTIDINE (20 MG) 20 MG TABLET GT SCH (08:13)
[2019-09-11] MEDS: CHLORHEXIDINE GLUCONATE 15 ML UDC MM SCH (08:14)
[2019-09-11] MEDS: DOCUSATE SODIUM LIQ 100 MG/10 ML UDC NG SCH ×2 (08:14→17:03)
[2019-09-11] MEDS: LEVETIRACETAM SOL (5 ML) 100 MG/ML UDC GT SCH ×2 (08:14→21:51)
[2019-09-11] MEDS: MINOXIDIL (2.5MG) 2.5 MG TABLET GT SCH (08:14)
[2019-09-11] MEDS: FERROUS SULFATE UDC 300 MG/5 ML UDC GT SCH (08:14)
[2019-09-11] MEDS: AMLODIPINE BESYLATE 10 MG TABLET GT SCH (08:14)
[2019-09-11] MEDS: ISOSORBIDE DINITRATE (20MG) 20 MG TABLET GT SCH ×3 (08:14→17:04)
[2019-09-11] MEDS: Z GUARD REMEDY 2 OZ OINT TP PRN (08:15)
[2019-09-11] MEDS: HEPARIN SODIUM, PORCINE 5000 UNITS/1 ML VIAL SQ SCH ×2 (09:00→21:00)
[2019-09-11 09:34] LABS: ABG BASE EXCESS 2.7 mmol/L; ABG OXYGEN SATURATION 97.3 % (92.0-98.5); ABG PH 7.473 (7.350-7.450); ABG PO2 101.5 mmHg (75.0-100.0); AaDO2 213.4 mmHg; COHb 0.5 % (0.5-1.5); MetHb 0.8 % (0.0-1.5); SITE, ABG Left Radial; VENT MODE, BG AC14 550 50% +5
--- NOTE | 2019-09-11 10:23 | NUR ---
Dr. Andujar updated about pt status. Per , may hold Heparin for now d/t low H/H. Start on SCDs.
[2019-09-11] MEDS: MEROPENEM 1 G in IV NS 0.9% 100 ML IV SCH ×2 (10:31→23:05)
--- NOTE | 2019-09-11 12:22 | NUR ---
Dr. Day made aware that pt rec'd Bumex drip 12MN. Per , may start bumex drip at 4pm.
[2019-09-11] MEDS ORDERED: BUMETANIDE INJ 8 MG in IV NS 0.9% 48 ML IV ONE ×2 (12:30→16:00)
[2019-09-11] MEDS: LACTOBACILLUS RHAMNOSUS GG 1 EACH CAP.SPRINK GT SCH (17:04)
[2019-09-11] MEDS: VANCOMYCIN 1 GM in IV D5W 250 ML IV SCH ×2 (17:13→17:52)
--- NOTE | 2019-09-11 17:53 | NUR ---
Vancomycin trough 21. Spoke w/ Yaniv (pharmacist), held today's dose.
--- NOTE | 2019-09-11 18:50 | NUR ---
EMPLOYER RELATIONS REPRESENTATIVE CLOSING NOTES No significant changes noted w/in shift. Pt tolerated MV settings via trach, sating at 100%. Remains SR on telemonitor. IV line access kept patent & intact w/ no s/sx of infection/infiltration noted, has ongoing Bumex drip on TOM midline infusing well. Pt tolerating Nepro x 40cc/hr via GT infusing well, no high gastric residuals. FC draining to BSB w/ yellowish UOP. Safety precaution kept in place w/ bed in lowest & locked pos. Call light placed w/in reach. Will endorse to PM RN for SALLY.
[2019-09-11] MEDS: DOXAZOSIN MESYLATE (4 MG) 4 MG TABLET GT SCH (21:49)
[2019-09-11] MEDS: POLYETHYLENE GLYCOL 3350 17 GM POWD.PACK PO SCH (21:51)
[2019-09-11] MEDS: SENNOSIDES 8.6 MG TABLET GT SCH (21:51)
[2019-09-11] MEDS: VANCOMYCIN 0.75 GM in IV D5W 250 ML IV SCH (22:13)
[2019-09-12] VITALS (28 sets, daily range): BP systolic 125–157; BP diastolic 66–83
[2019-09-12 04:20] LABS: BASOPHILS % (AUTO) 0.4 % (0.0-2.0); EOSINOPHILS % (AUTO) 3.8 % (0.0-6.0); HEMATOCRIT 24 % (39-51); HEMOGLOBIN 8.1 g/dL (13.5-17.5); LYMPHOCYTES # (AUTO) 0.7 /CMM (0.8-4.8); LYMPHOCYTES % (AUTO) 6.8 % (20.0-44.0); MEAN CORPUSCULAR HGB CONC 33 g/dl (31.0-36.0); MEAN CORPUSCULAR VOLUME 89 fL (80-96); MONOCYTES # (AUTO) 0.9 /CMM (0.1-1.30); NEUTROPHILS # (AUTO) 7.8 /CMM (1.8-8.9); PLATELET COUNT (AUTO) 252 /CMM (150-450); RED BLOOD CELL COUNT(AUTO) 2.74 MIL/uL (4.5-6.0); WHITE BLOOD COUNT (AUTO) 9.8 K/uL (4.3-11.0)
[2019-09-12 04:30] LABS: CALCIUM, SERUM 9.5 mg/dL (8.5-10.1); CREATININE 3.5 mg/dL (0.6-1.3); PHOSPHORUS 4.2 mg/dL (2.5-4.9); POTASSIUM 3.8 mmol/L (3.5-5.1)
[2019-09-12] MEDS ORDERED: LABETALOL HCL (100MG) 100 MG TABLET ONE (04:55)
[2019-09-12] MEDS ORDERED: CLONIDINE HCL 0.1 MG TABLET ONE (04:55)
[2019-09-12] MEDS ORDERED: METOCLOPRAMIDE HCL 10 MG TABLET ONE (04:55)
[2019-09-12] MEDS ORDERED: hydrALAZINE HCL 25 MG TABLET ONE (04:55)
[2019-09-12] MEDS: LABETALOL HCL (100MG) 100 MG TABLET GT SCH ×3 (04:59→21:16)
[2019-09-12] MEDS: CLONIDINE HCL 0.1 MG TABLET GT SCH ×3 (04:59→21:14)
[2019-09-12] MEDS: hydrALAZINE HCL 25 MG TABLET GT SCH ×3 (04:59→21:13)
[2019-09-12] MEDS: BLOOD SUGAR DIAGNOSTIC 1 EACH STRIP IN SCH ×4 (05:00→23:36)
[2019-09-12] MEDS: METOCLOPRAMIDE HCL 10 MG TABLET GT SCH ×3 (05:00→21:16)
[2019-09-12] MEDS: INSULIN REGULAR, HUMAN 100 UNIT/ML 3 ML VIAL SQ PRN ×4 (05:09→23:39)
--- NOTE | 2019-09-12 05:41 | NUR ---
PT RECEIVED TRACHED PTX 7 CUFFLESS ON [facility] VENT. NO RESP DISTRESS. PT TOLERATING CURRENT VENT SETTINGS. SX'D FOR SML AMT OF TINGED/BLOOD SECRETIONS. VENT ALARMS SET AND AUDIBLE. AMBU BAG AT BEDSIDE. VENT PLUGGED INTO RED OUTLET. Addendum: 09/12/19 at 0543 by FRANCISCO VELEZ RT Amended: Links added.
--- NOTE | 2019-09-12 06:24 | NUR ---
PATIENT REMAINS IN NO ACUTE DISTRESS IN BED. PATIENT DID NOT HAVE ANY SIGNIFICANT CHANGE IN CONDITION DURING SHIFT. PATIENT TOLERATED VENT SETTING WELL. PATIENT TOLERATED FEEDING WELL. ALL NEEDS MET, ALL ORDERS CARRIED OUT. WILL ENDORSE CARE TO AM RN FOR CONTINUITY OF CARE.
[2019-09-12] MEDS: NEPRO 1,000 ML BOTTLE GT PRN (06:58)
--- NOTE | 2019-09-12 07:15 | NUR ---
RN INITIAL NOTES RECEIVED PT A/OX1, ABLE TO MOUTH WORDS. TRACH IN PLACE, TOLERATING VENT WELL. NO RESPIRATORY DISTRESS NOTED. NO SOB NOTED. KEPT HOB ELEVATED. TOM MIDLINE IN PLACE. GT IN PLACE. TOLERATING GTF WELL. FC IN PLACE. NO HEMATURIA NOTED. BLE ELEVATED. PT COMFORTABLE. WILL MONITOR
[2019-09-12] MEDS: LACTOBACILLUS RHAMNOSUS GG 1 EACH CAP.SPRINK GT SCH ×2 (09:00→17:00)
[2019-09-12] MEDS: CHLORHEXIDINE GLUCONATE 15 ML UDC MM SCH (09:09)
[2019-09-12] MEDS: FERROUS SULFATE UDC 300 MG/5 ML UDC GT SCH (09:09)
[2019-09-12] MEDS: DOCUSATE SODIUM LIQ 100 MG/10 ML UDC NG SCH ×2 (09:09→16:23)
[2019-09-12] MEDS: LEVETIRACETAM SOL (5 ML) 100 MG/ML UDC GT SCH ×2 (09:09→21:17)
[2019-09-12] MEDS: MINOXIDIL (2.5MG) 2.5 MG TABLET GT SCH (09:10)
[2019-09-12] MEDS: SPIRONOLACTONE 25 MG TABLET GT SCH (09:10)
[2019-09-12] MEDS: FAMOTIDINE (20 MG) 20 MG TABLET GT SCH (09:10)
[2019-09-12] MEDS: ISOSORBIDE DINITRATE (20MG) 20 MG TABLET GT SCH ×3 (09:11→16:28)
[2019-09-12] MEDS: LINAGLIPTIN 5 MG TABLET GT SCH (09:11)
[2019-09-12] MEDS: AMLODIPINE BESYLATE 10 MG TABLET GT SCH (09:11)
[2019-09-12] MEDS: HEPARIN SODIUM, PORCINE 5000 UNITS/1 ML VIAL SQ SCH ×2 (09:13→21:27)
[2019-09-12 10:11] LABS: ABG OXYGEN SATURATION 94.9 % (92.0-98.5); ABG PCO2 40.3 mmHg (35.0-45.0); ABG PH 7.475 (7.350-7.450); AaDO2 161.9 mmHg; COHb 0.5 % (0.5-1.5); MetHb 0.6 % (0.0-1.5); O2Hb 93.9 % (94.0-97.0); SITE, ABG Left Radial; VENT MODE, BG AC 14 550 40% +5
[2019-09-12] MEDS: MEROPENEM 1 G in IV NS 0.9% 100 ML IV SCH ×2 (10:35→23:10)
[2019-09-12] MEDS ORDERED: BUMETANIDE INJ 8 MG in IV NS 0.9% 48 ML IV ONE (12:00)
--- NOTE | 2019-09-12 12:30 | NUR ---
RN NOTES SEEN AND EXAMINED BY DR TREVIZO. AWARE OF CURRENT LAB VALUES. PT ON FI02 40%. NO RESPIRATORY DISTRESS NOTED. TOLERATING GTF WELL. OK TO DOWNGRADE TO TELE. WILL MONITOR
--- NOTE | 2019-09-12 18:22 | NUR ---
RN CLOSING NOTES NO SIGNIFICANT CHANGE NOTED. NO RESPIRATORY DISTRESS NOTED. NO SIGNS OF PAIN NOTED. TOLERTAING GTF WELL. KEPT CLEAN AND DRY. REPOSITIONED Q2. BLE ELEVATED. WILL ENDORSE FOR CONTINUITY OF CARE
[2019-09-12] MEDS: VANCOMYCIN 0.75 GM in IV D5W 250 ML IV SCH (21:18)
[2019-09-12] MEDS: POLYETHYLENE GLYCOL 3350 17 GM POWD.PACK PO SCH (22:39)
[2019-09-12] MEDS: SENNOSIDES 8.6 MG TABLET GT SCH (22:39)
[2019-09-12] MEDS ORDERED: DOXAZOSIN MESYLATE (4 MG) 4 MG TABLET ONE (22:51)
[2019-09-12] MEDS: DOXAZOSIN MESYLATE (4 MG) 4 MG TABLET GT SCH (22:59)
[2019-09-13] VITALS (15 sets, daily range): BP systolic 117–155; BP diastolic 65–76
[2019-09-13 04:18] LABS: BASOPHILS # (AUTO) 0.1 /CMM (0.0-0.2); BASOPHILS % (AUTO) 0.7 % (0.0-2.0); EOSINOPHILS % (AUTO) 5.1 % (0.0-6.0); HEMATOCRIT 23 % (39-51); HEMOGLOBIN 8.1 g/dL (13.5-17.5); LYMPHOCYTES # (AUTO) 0.9 /CMM (0.8-4.8); LYMPHOCYTES % (AUTO) 7.8 % (20.0-44.0); MEAN CORPUSCULAR HGB CONC 35 g/dl (31.0-36.0); MEAN CORPUSCULAR VOLUME 89 fL (80-96); MONOCYTES # (AUTO) 1.1 /CMM (0.1-1.30); MONOCYTES % (AUTO) 9.4 % (2.0-12.0); NEUTROPHILS # (AUTO) 8.8 /CMM (1.8-8.9); PLATELET COUNT (AUTO) 287 /CMM (150-450); RED BLOOD CELL COUNT(AUTO) 2.63 MIL/uL (4.5-6.0); WHITE BLOOD COUNT (AUTO) 11.4 K/uL (4.3-11.0)
[2019-09-13 04:36] LABS: CALCIUM, SERUM 9.8 mg/dL (8.5-10.1); CREATININE 3.7 mg/dL (0.6-1.3); MAGNESIUM 3.1 mg/dL (1.8-2.4); PHOSPHORUS 3.6 mg/dL (2.5-4.9); POTASSIUM 3.7 mmol/L (3.5-5.1)
[2019-09-13] MEDS: BLOOD SUGAR DIAGNOSTIC 1 EACH STRIP IN SCH ×3 (06:11→18:18)
[2019-09-13] MEDS: INSULIN REGULAR, HUMAN 100 UNIT/ML 3 ML VIAL SQ PRN ×3 (06:16→18:20)
--- NOTE | 2019-09-13 06:31 | NUR ---
Telephone report given to Leonidas, all questions answered. Patient transferred to [facility] via [facility] protocal @ 0615 accompanied by Respiratory Therapist, with ventilations via 100% bag valve mask . Patient stable prior to and during transfer.
--- NOTE | 2019-09-13 06:38 | NUR ---
Receiving Nurse Mallory informed of 0500 meds still need to be administered, due insufficient quantity of tablets available in the ICU, as verified with Charge Nurse Indira.
[2019-09-13] MEDS: LABETALOL HCL (100MG) 100 MG TABLET GT SCH ×3 (07:06→21:57)
[2019-09-13] MEDS: CLONIDINE HCL 0.1 MG TABLET GT SCH ×3 (07:06→21:56)
[2019-09-13] MEDS: METOCLOPRAMIDE HCL 10 MG TABLET GT SCH ×3 (07:07→21:57)
[2019-09-13] MEDS: hydrALAZINE HCL 25 MG TABLET GT SCH ×3 (07:13→21:56)
--- NOTE | 2019-09-13 08:00 | NUR ---
TELE1/RN AM SHIFT INITIAL NOTES RECEIVED PT AWAKE IN BED, PT A/O X 1, NO ACUTE CHANGE OF CONDITION, NO GRIMACING, PT DENIES PAIN. PT ABLE TO RESPONSE AT TIMES THE "YES" WORD OTHER IVAN APHASIC. ON VENT WITH RATES SET PRESCRIBED SATURATING @ 93%, RESPIRATIONS EVEN & UNLABORED, SUCTIONED FOR AIRWAY CLEARANCE, NOTED WITH PINK TINGED SECRETIONS. MIDLINE INTACT WITH NO S/S OF INFECTION, ON TKO. GTF ON GOING @ 40CC/HR, NO GASTRIC RESIDUAL, FLUSHED, PATENT. DVT SLEEVE PLACED, WITH PUMP TURNED ON. CANNON CATHETER INTACT WITH YELLOW URINE OUTPUT. PT IS COMFORTABLE, SCHEDULED AM MEDS TO BE GIVEN. CL WITHIN REACHED AND SAFETY MAINTAINED. ON GOING MONITORING.
[2019-09-13] MEDS ORDERED: BUMETANIDE INJ 4 MG in IV NS 0.9% 24 ML IV ONE (10:00)
[2019-09-13] MEDS: CHLORHEXIDINE GLUCONATE 15 ML UDC MM SCH (10:31)
[2019-09-13] MEDS: FERROUS SULFATE UDC 300 MG/5 ML UDC GT SCH (10:31)
[2019-09-13] MEDS: LEVETIRACETAM SOL (5 ML) 100 MG/ML UDC GT SCH ×2 (10:31→21:55)
[2019-09-13] MEDS: DOCUSATE SODIUM LIQ 100 MG/10 ML UDC NG SCH ×2 (10:31→18:17)
[2019-09-13] MEDS: FAMOTIDINE (20 MG) 20 MG TABLET GT SCH (10:32)
[2019-09-13] MEDS: HEPARIN SODIUM, PORCINE 5000 UNITS/1 ML VIAL SQ SCH ×2 (10:32→22:03)
[2019-09-13] MEDS: LINAGLIPTIN 5 MG TABLET GT SCH (10:32)
[2019-09-13] MEDS: LACTOBACILLUS RHAMNOSUS GG 1 EACH CAP.SPRINK GT SCH ×2 (10:32→18:17)
[2019-09-13] MEDS: SPIRONOLACTONE 25 MG TABLET GT SCH (10:33)
[2019-09-13] MEDS: MINOXIDIL (2.5MG) 2.5 MG TABLET GT SCH (10:33)
[2019-09-13] MEDS: AMLODIPINE BESYLATE 10 MG TABLET GT SCH (10:34)
[2019-09-13] MEDS: ISOSORBIDE DINITRATE (20MG) 20 MG TABLET GT SCH ×3 (10:34→18:18)
[2019-09-13] MEDS: MEROPENEM 1 G in IV NS 0.9% 100 ML IV SCH ×2 (11:54→22:18)
--- NOTE | 2019-09-13 12:00 | NUR ---
TELE1/RN NOON ROUNDS NO CHANGE OF CONDITION. MONITORING CONTINUED.
--- NOTE | 2019-09-13 12:04 | NUR ---
WOUND CARE CONSULT: PT PRESENTS WITH INCONTINENCE AND PATCHY CRUSTED SKIN TO LEFT FOREARM, PRESENT ON ADMISSION. DEFER TO MD FOR SKIN CONDITION LEFT ARM. RECOMMENDATIONS MADE FOR SKIN PROTECTION. DISCUSSED WITH NURSING STAFF. PT ON FIRST STEP [facility]. WILL SEE PRN. CORTES IN AGREEMENT WITH PLAN OF CARE. Addendum: 09/13/19 at 1205 by BRYANT SYED WNDNU Amended: Links added.
--- NOTE | 2019-09-13 15:19 | NUR ---
RT NOTE PT REMAINS MECHANICALLY VENTILATED VIA CUFFLESS TRACHEOSTOMY TUBE. TRACH TUBE MIDLINE AND SECURE. VENTILATOR SETTINGS PRESCRIBED. ALARMS SET PER PROTOCOL AND AUDIBLE. VENT PLUGGED IN TO RED OUTLET. AMBU BAG AT BED SIDE. NO DISTRESS NOTED. Addendum: 09/13/19 at 1520 by HORACE FOFANA RT Amended: Links added.
--- NOTE | 2019-09-13 17:00 | NUR ---
TELE1/RN AFTERNOON ROUNDS PM CARE PROVIDED. NO CHANGE OF CONDITION. MONITORING CONTINUED.
--- NOTE | 2019-09-13 19:30 | NUR ---
BLEACH BOILER PACKER OPENING NOTE RECEIVED PATIENT A/OX0 NON-VERBAL BUT NODS FOR UNDERSTANDING. PATIENT IS ON A VENT WITH PORTEX SIZE#9, AC 14, TV 550, FI02 AT 40%, PEEP 5. TOLERATION VENT WELL. PATIENT ON THE MONITOR IS SINUS RHYTHM. CANNON CATHETER IS PATENT WITH NO OBSTRUCTION. HAS A LT FA PSORIASIS BUT INTACT NO SKIN BREAKAGE. GTUBE FEEDING WITH MINIMAL RESIDUAL RUNNING NEPRO AT 40ML/HR. APPLIED ALL SAFETY PRECAUTIONS AND WILL CONTINUE TO MONITOR.
--- NOTE | 2019-09-13 19:30 | NUR ---
TELE1/RN AM SHIFT END NOTES ALL NEEDS MET. NO ACUTE CHANGE OF CONDITION NOTED DURING THE SHIFT. PT ENDORSED TO PM NURSE TO CONTINUE CARE. CL WITHIN REACHED AND SAFETY MAINTAINED.
[2019-09-13] MEDS: VANCOMYCIN 0.75 GM in IV D5W 250 ML IV SCH (21:00)
--- NOTE | 2019-09-13 21:46 | NUR ---
SUBSTATION SUPERVISOR NOTE VANCO TOUGH LEVEL IS 36. HELD VANCO AT 2100
[2019-09-13] MEDS: SENNOSIDES 8.6 MG TABLET GT SCH (22:18)
[2019-09-13] MEDS: DOXAZOSIN MESYLATE (4 MG) 4 MG TABLET GT SCH (22:18)
[2019-09-13] MEDS: POLYETHYLENE GLYCOL 3350 17 GM POWD.PACK PO SCH (22:19)
[2019-09-14] VITALS: BP_SYST 114; BP_SYST 141; BP_DIAS 54; BP_DIAS 90
[2019-09-14] MEDS: INSULIN REGULAR, HUMAN 100 UNIT/ML 3 ML VIAL SQ PRN ×4 (00:24→18:00)
[2019-09-14] MEDS: BLOOD SUGAR DIAGNOSTIC 1 EACH STRIP IN SCH ×4 (00:29→18:00)
[2019-09-14 04:00] VITALS: BP 162/77
[2019-09-14] MEDS: LABETALOL HCL (100MG) 100 MG TABLET GT SCH ×3 (05:13→21:59)
[2019-09-14] MEDS: hydrALAZINE HCL 25 MG TABLET GT SCH ×3 (05:14→21:57)
[2019-09-14] MEDS: CLONIDINE HCL 0.1 MG TABLET GT SCH ×3 (05:14→21:57)
[2019-09-14] MEDS: METOCLOPRAMIDE HCL 10 MG TABLET GT SCH ×3 (05:14→21:58)
--- NOTE | 2019-09-14 05:31 | NUR ---
RT FIO2 INCREASED DUE TO DECREASED SPO2 Addendum: 09/14/19 at 0531 by BRIE MEJÍA RT Amended: Links added.
[2019-09-14 07:14] LABS: BASOPHILS # (AUTO) 0.1 /CMM (0.0-0.2); BASOPHILS % (AUTO) 1.1 % (0.0-2.0); EOSINOPHILS % (AUTO) 5.5 % (0.0-6.0); HEMATOCRIT 22 % (39-51); HEMOGLOBIN 7.2 g/dL (13.5-17.5); LYMPHOCYTES # (AUTO) 0.9 /CMM (0.8-4.8); LYMPHOCYTES % (AUTO) 7.6 % (20.0-44.0); MEAN CORPUSCULAR HGB CONC 33 g/dl (31.0-36.0); MEAN CORPUSCULAR VOLUME 89 fL (80-96); MONOCYTES % (AUTO) 8.3 % (2.0-12.0); NEUTROPHILS # (AUTO) 9.3 /CMM (1.8-8.9); NEUTROPHILS % (AUTO) 77.5 % (43.0-81.0); PLATELET COUNT (AUTO) 301 /CMM (150-450); RED BLOOD CELL COUNT(AUTO) 2.46 MIL/uL (4.5-6.0)
--- NOTE | 2019-09-14 07:30 | NUR ---
RN OPENING NOTES PT APPEARS TO BE TOLERATING VENT SETTINGS WELL. NO OBVIOUS SIGNS OF SOB OR PAIN NOTED AT PRESENT TIME. REPORT RECEIVED FROM OUTSIDE SALES REPRESENTATIVE INSURANCE RN. G-TUBE RUNNING AT 40ML/HR TOLERATING WELL. PT IS RESTING IN BED WITH HOB ELEVATED TO PT'S COMFORT. BED IS LOCKED AND IN LOWEST POSITION WILL CONTINUE TO MONITOR.
[2019-09-14 07:33] LABS: BILIRUBIN,TOTAL 0.4 mg/dL (0.2-1.0); CALCIUM, SERUM 9.5 mg/dL (8.5-10.1); CREATININE 4.5 mg/dL (0.6-1.3); PHOSPHORUS 3.4 mg/dL (2.5-4.9); POTASSIUM 3.9 mmol/L (3.5-5.1); TOTAL PROTEIN, SERUM 6.7 g/dL (6.4-8.2)
[2019-09-14 08:00] VITALS: BP 136/73
--- NOTE | 2019-09-14 08:14 | NUR ---
MANUFACTURING ENGINEERING MANAGER CLOSING NOTE PATIENT IN BED WITH NO DISTRESS AT THE MOMENT. TOLERATING VENT WITH O2 SAT 95%. GTUBE IS TOLERABLE AT 40ML/HR WITH NO RISIDUAL. ALL SAFETY PRECAUTIONS APPLIED. ENDORSED PATIENT TO MORNING NURSE.
--- NOTE | 2019-09-14 08:33 | NUR ---
PER DR GARCIA ORDER TRACH CHANGED TO PORTEX 7 CUFFED. PATIENT LITZY WELL. RN AWARE
[2019-09-14] MEDS: CHLORHEXIDINE GLUCONATE 15 ML UDC MM SCH (09:44)
[2019-09-14] MEDS: DOCUSATE SODIUM LIQ 100 MG/10 ML UDC NG SCH ×2 (09:44→17:08)
[2019-09-14] MEDS: LEVETIRACETAM SOL (5 ML) 100 MG/ML UDC GT SCH ×2 (09:44→21:58)
[2019-09-14] MEDS: FERROUS SULFATE UDC 300 MG/5 ML UDC GT SCH (09:44)
[2019-09-14] MEDS: LINAGLIPTIN 5 MG TABLET GT SCH (09:45)
[2019-09-14] MEDS: SPIRONOLACTONE 25 MG TABLET GT SCH (09:45)
[2019-09-14] MEDS: AMLODIPINE BESYLATE 10 MG TABLET GT SCH (09:45)
[2019-09-14] MEDS: LACTOBACILLUS RHAMNOSUS GG 1 EACH CAP.SPRINK GT SCH ×2 (09:45→17:08)
[2019-09-14] MEDS: FAMOTIDINE (20 MG) 20 MG TABLET GT SCH (09:45)
[2019-09-14] MEDS: ISOSORBIDE DINITRATE (20MG) 20 MG TABLET GT SCH ×3 (09:45→17:08)
[2019-09-14] MEDS: MINOXIDIL (2.5MG) 2.5 MG TABLET GT SCH (09:46)
[2019-09-14] MEDS: HEPARIN SODIUM, PORCINE 5000 UNITS/1 ML VIAL SQ SCH ×2 (09:48→22:00)
[2019-09-14] MEDS: MEROPENEM 1 G in IV NS 0.9% 100 ML IV SCH ×2 (11:14→22:59)
[2019-09-14 12:00] VITALS: BP 143/72
[2019-09-14] MEDS ORDERED: EPOETIN ALFA (10,000 UNIT) 10,000 UNIT/ML VIAL SQ SCH (15:00)
[2019-09-14 16:00] VITALS: BP 122/62
--- NOTE | 2019-09-14 17:52 | NUR ---
PT'S SISTER CALLED WOULD LIKE TO BE A PART OF EMERGENCY CONTACT. MARGARITA
[2019-09-14] MEDS: NEPRO 1,000 ML BOTTLE GT PRN (18:19)
--- NOTE | 2019-09-14 19:07 | NUR ---
RN CLOSING NOTES PT RESTING IN BED. REPOSITIONED Q2HRS. PT FEEDING RESUMED. HOB ELEVATED TO PT COMFORT. BED IS LOCKED AND IN LOWEST POSITION WITH CANNON DRAINING TO GRAVITY. REPORT GIVEN TO CUSTOMER RECORDS DIVISION SUPERVISOR RN FOR SALLY.
--- NOTE | 2019-09-14 19:22 | NUR ---
FRANCHISE MANAGER NOTE PATIENT IN BED HOB 30 DEGREES. PATIENT A/O X 2 AND ABLE TO VERBALIZE NEEDS. PATIENT DENIES PAIN/SOB OR DISCOMFORT AT THIS TIME. TOLERATING VENT SETTINGS WELL. BREATHING EVEN AND UNLABORED. PATIENT HR SR ON THE MONITOR. PATIENT TOLERATING TUBE FEEDING DENIES N/V/D. PATIENT HAS FC DRAINING TO GRAVITY. SAFETY PRECAUTIONS IN PLACE SIDE RAILS UP X 2 RN WILL CONTINUE TO MONITOR FOR CHANGES.
[2019-09-14 20:00] VITALS: BP 131/63
[2019-09-14] MEDS: SENNOSIDES 8.6 MG TABLET GT SCH (22:59)
[2019-09-14] MEDS: DOXAZOSIN MESYLATE (4 MG) 4 MG TABLET GT SCH (22:59)
[2019-09-14] MEDS: POLYETHYLENE GLYCOL 3350 17 GM POWD.PACK PO SCH (22:59)
[2019-09-15] VITALS: BP 121/68
[2019-09-15] MEDS: BLOOD SUGAR DIAGNOSTIC 1 EACH STRIP IN SCH ×4 (00:56→18:11)
[2019-09-15] MEDS: INSULIN REGULAR, HUMAN 100 UNIT/ML 3 ML VIAL SQ PRN ×4 (00:59→18:09)
[2019-09-15 04:00] VITALS: BP 140/66
--- NOTE | 2019-09-15 04:36 | NUR ---
RT NOTE Pt rec'd trached on [facility] vent on AC mode settings as charted. No resp distress or SOB noted. sx'd for thick mod amt of pale yellow secretions. Trach is patent and secured. Alarms are set and audible. Vent plugged into red outlet. Ambu bag bedside. Will continue to monitor. Addendum: 09/15/19 at 0436 by CRISTIANE NAVA RT Amended: Links added.
[2019-09-15] MEDS: METOCLOPRAMIDE HCL 10 MG TABLET GT SCH ×2 (05:46→13:10)
[2019-09-15] MEDS: CLONIDINE HCL 0.1 MG TABLET GT SCH ×3 (05:46→21:02)
[2019-09-15] MEDS: hydrALAZINE HCL 25 MG TABLET GT SCH ×3 (05:46→21:01)
[2019-09-15] MEDS: LABETALOL HCL (100MG) 100 MG TABLET GT SCH ×3 (05:47→21:01)
[2019-09-15 07:17] LABS: BASOPHILS # (AUTO) 0.1 /CMM (0.0-0.2); BASOPHILS % (AUTO) 0.7 % (0.0-2.0); EOSINOPHILS % (AUTO) 6.1 % (0.0-6.0); HEMATOCRIT 24 % (39-51); HEMOGLOBIN 7.9 g/dL (13.5-17.5); LYMPHOCYTES # (AUTO) 0.9 /CMM (0.8-4.8); LYMPHOCYTES % (AUTO) 7.7 % (20.0-44.0); MEAN CORPUSCULAR HGB CONC 33 g/dl (31.0-36.0); MEAN CORPUSCULAR VOLUME 90 fL (80-96); MONOCYTES # (AUTO) 1.2 /CMM (0.1-1.30); MONOCYTES % (AUTO) 9.5 % (2.0-12.0); NEUTROPHILS # (AUTO) 9.3 /CMM (1.8-8.9); PLATELET COUNT (AUTO) 336 /CMM (150-450); RED BLOOD CELL COUNT(AUTO) 2.68 MIL/uL (4.5-6.0); WHITE BLOOD COUNT (AUTO) 12.3 K/uL (4.3-11.0)
[2019-09-15 07:26] LABS: CREATININE 5.2 mg/dL (0.6-1.3); POTASSIUM 4.1 mmol/L (3.5-5.1)
[2019-09-15 08:00] VITALS: BP_SYST 140; BP_SYST 141; BP_DIAS 72
[2019-09-15] MEDS: FAMOTIDINE (20 MG) 20 MG TABLET GT SCH (08:47)
[2019-09-15] MEDS: LEVETIRACETAM SOL (5 ML) 100 MG/ML UDC GT SCH ×2 (08:47→21:01)
[2019-09-15] MEDS: FERROUS SULFATE UDC 300 MG/5 ML UDC GT SCH (08:47)
[2019-09-15] MEDS: DOCUSATE SODIUM LIQ 100 MG/10 ML UDC NG SCH ×2 (08:47→16:36)
[2019-09-15] MEDS: CHLORHEXIDINE GLUCONATE 15 ML UDC MM SCH (08:47)
[2019-09-15] MEDS: LACTOBACILLUS RHAMNOSUS GG 1 EACH CAP.SPRINK GT SCH ×2 (08:47→16:37)
[2019-09-15] MEDS: AMLODIPINE BESYLATE 10 MG TABLET GT SCH (08:48)
[2019-09-15] MEDS: SPIRONOLACTONE 25 MG TABLET GT SCH (08:48)
[2019-09-15] MEDS: MINOXIDIL (2.5MG) 2.5 MG TABLET GT SCH (08:49)
[2019-09-15] MEDS: LINAGLIPTIN 5 MG TABLET GT SCH (08:49)
[2019-09-15] MEDS: ISOSORBIDE DINITRATE (20MG) 20 MG TABLET GT SCH ×3 (08:49→16:37)
[2019-09-15] MEDS: HEPARIN SODIUM, PORCINE 5000 UNITS/1 ML VIAL SQ SCH ×2 (08:51→21:22)
--- NOTE | 2019-09-15 09:05 | NUR ---
SINK CUTTER NOTE PATIENT IN BED HOB 30 DEGREES. PATIENT A/O X 2 AND . PATIENT DENIES PAIN/SOB OR DISCOMFORT AT THIS TIME. WITH TRACH TO VENT SETTING ORDERED ,TOLERATING VENT SETTINGS WELL. BREATHING EVEN AND UNLABORED. PATIENT HR SR ON THE MONITOR. PATIENT TOLERATING TUBE FEEDING DENIES N/V/D . PATIENT HAS FC DRAINING TO GRAVITY.WITH YELLOW COLOR URINE , SAFETY PRECAUTIONS IN PLACE SIDE RAILS UP X 2 RN WILL CONTINUE TO MONITOR FOR CHANGES.BED IN LOWEST AND LOCKED POSITION
[2019-09-15] MEDS: MEROPENEM 1 G in IV NS 0.9% 100 ML IV SCH ×2 (10:33→23:18)
--- NOTE | 2019-09-15 10:57 | NUR ---
ANCHOR TACKER NOTE REPORTED TO DR JEAN BAPTISTE MOLD MACHINE OPERATOR THAT BUN 119 CREATINE IS 5.2 ,UA STUDY ORDERED WILL F\U
--- NOTE | 2019-09-15 11:14 | NUR ---
HVAC TECH NOTE UA COLLECTED ORDERED
[2019-09-15 12:00] VITALS: BP 122/66
--- NOTE | 2019-09-15 15:00 | NUR ---
PODIATRY DOCTOR NOTE TURN REPOSITION, ALL NEEDS ATTENDED NOT IN DISTRESS
[2019-09-15 16:00] VITALS: BP 146/72
[2019-09-15] MEDS: NEPRO 1,000 ML BOTTLE GT PRN (16:42)
[2019-09-15 17:02] LABS: CREATININE, URINE 45.6 MG/DL (30.0-125.0)
[2019-09-15 17:27] LABS: APPEARANCE,URINE Cloudy (CLEAR); BILIRUBIN,URINE Negative (NEGATIVE); BLOOD, URINE Moderate Ery/uL (NEGATIVE); COLOR,URINE Yellow (YELLOW); KETONES,URINE Negative (NEGATIVE); LEUKOCYTE ESTERASE ,URINE Negative (NEGATIVE); NITRITE, URINE Negative (NEGATIVE); PROTEIN,URINE >=300 mg/dl (NEGATIVE); UGLUCOSE 250 MG/DL mg/dL (NEGATIVE); UROBILINOGEN,URINE 0.2 EU/dL (0.2)
[2019-09-15 18:06] LABS: BACTERIA,URINE Rare /HPF (None Seen); RBC,URINE 21-50 /HPF (0-2); SQUAMOUS EPITHELIAL CELL,UR Few /HPF (None Seen); WBC,URINE NONE SEEN /HPF (0-3)
--- NOTE | 2019-09-15 18:28 | NUR ---
BEAUTY SCHOOL INSTRUCTOR NOTE CONT ON G TUBE FEEDING ORDERED, ON TRACH TO VENT SETTING ORDERED , ALL NEEDS ATTENDED BED IN LOWEST AND LOCKED POSITION , WILL CONT TO MONITOR CLOSELY
[2019-09-15 18:30] LABS: URINE TOTAL PROTEIN 688.4 mg/dL (0-11.9)
--- NOTE | 2019-09-15 20:00 | NUR ---
DELINQUENT TAX COLLECTOR INITIAL NOTE PATIENT IN BED A/O X 2 ABLE TO VERBALIZE NEEDS. PATIENT DENIES PAIN/SOB OR DISCOMFORT AT THIS TIME. TOLERATING VENT SETTINGS WELL. BREATHING EVEN AND UNLABORED. PATIENT HR SR ON THE MONITOR. PATIENT TOLERATING TUBE FEEDING DENIES N/V/D. PATIENT HAS FC DRAINING TO GRAVITY. SAFETY PRECAUTIONS IN PLACE SIDE RAILS UP X 2 RN WILL CONTINUE TO MONITOR FOR CHANGES.
[2019-09-15 20:03] VITALS: BP 145/71
[2019-09-15] MEDS: POLYETHYLENE GLYCOL 3350 17 GM POWD.PACK PO SCH (21:02)
[2019-09-15] MEDS: SENNOSIDES 8.6 MG TABLET GT SCH (21:02)
[2019-09-15] MEDS: DOXAZOSIN MESYLATE (4 MG) 4 MG TABLET GT SCH (21:02)
[2019-09-15] MEDS: LINEZOLID RTU BAG 600 MG in PREMIX 1 EA IV SCH (21:03)
[2019-09-15 21:08] LABS: EOSINOPHIL,URINE Rare
[2019-09-16] VITALS: BP 135/75
[2019-09-16] MEDS: BLOOD SUGAR DIAGNOSTIC 1 EACH STRIP IN SCH ×5 (00:16→23:40)
[2019-09-16] MEDS: INSULIN REGULAR, HUMAN 100 UNIT/ML 3 ML VIAL SQ PRN ×5 (00:21→23:41)
[2019-09-16 04:39] VITALS: BP 132/77
[2019-09-16] MEDS: LABETALOL HCL (100MG) 100 MG TABLET GT SCH ×3 (06:17→21:29)
[2019-09-16] MEDS: CLONIDINE HCL 0.1 MG TABLET GT SCH ×3 (06:18→21:28)
[2019-09-16] MEDS: hydrALAZINE HCL 25 MG TABLET GT SCH ×3 (06:19→21:29)
--- NOTE | 2019-09-16 06:44 | NUR ---
COW PUNCHER CLOSING NOTE PATIENT IN BED A/O X 2 ABLE TO VERBALIZE NEEDS. PATIENT DENIES PAIN/SOB OR DISCOMFORT AT THIS TIME. TOLERATING VENT SETTINGS WELL. BREATHING EVEN AND UNLABORED. PATIENT HR SR ON THE MONITOR. PATIENT TOLERATING TUBE FEEDING DENIES N/V/D. PATIENT HAS FC DRAINING TO GRAVITY. SAFETY PRECAUTIONS IN PLACE SIDE RAILS UP X 2 RN WILL CONTINUE TO MONITOR FOR CHANGES.
[2019-09-16 07:18] LABS: BASOPHILS # (AUTO) 0.1 /CMM (0.0-0.2); BASOPHILS % (AUTO) 0.5 % (0.0-2.0); HEMATOCRIT 22 % (39-51); HEMOGLOBIN 7.3 g/dL (13.5-17.5); LYMPHOCYTES # (AUTO) 0.9 /CMM (0.8-4.8); LYMPHOCYTES % (AUTO) 6.6 % (20.0-44.0); MEAN CORPUSCULAR HGB CONC 33 g/dl (31.0-36.0); MEAN CORPUSCULAR VOLUME 90 fL (80-96); MONOCYTES % (AUTO) 7.8 % (2.0-12.0); NEUTROPHILS # (AUTO) 10.4 /CMM (1.8-8.9); NEUTROPHILS % (AUTO) 80.1 % (43.0-81.0); PLATELET COUNT (AUTO) 342 /CMM (150-450); RED BLOOD CELL COUNT(AUTO) 2.44 MIL/uL (4.5-6.0)
--- NOTE | 2019-09-16 07:20 | NUR ---
RN INITIAL NOTE PATIENT IN BED, ASLEEP BUT EASILY AROUSABLE TO NAME AND TOUCH. ON VENT, SATING WELL AT 100%. PATIENT IS NON VERBAL BUT IS ALERT X2 AND EXPRESSES NEEDS BY MOUTHING WORDS. HAS CANNON CATH WITH CLEAR AND YELLOW OUTPUT. HAD X1 LARGE BM LAST NIGHT. ON GTF NEPRO AT 40 ML/HR. HAS A LEFT UA 320 SL AND RIGHT UA MIDLINE ON TKO. BED LOCKED AND IN LOWEST POSITION. CALL LIGHT WITHIN REACH, WILL CONTINUE TO MONITOR
[2019-09-16 07:47] LABS: CALCIUM, SERUM 10.1 mg/dL (8.5-10.1); CREATININE 5.5 mg/dL (0.6-1.3); MAGNESIUM 3.7 mg/dL (1.8-2.4); PHOSPHORUS 4.3 mg/dL (2.5-4.9); POTASSIUM 3.9 mmol/L (3.5-5.1)
[2019-09-16 08:00] VITALS: BP 118/60
[2019-09-16] MEDS: FERROUS SULFATE UDC 300 MG/5 ML UDC GT SCH (08:14)
[2019-09-16] MEDS: SPIRONOLACTONE 25 MG TABLET GT SCH (08:15)
[2019-09-16] MEDS: MINOXIDIL (2.5MG) 2.5 MG TABLET GT SCH (08:15)
[2019-09-16] MEDS: LEVETIRACETAM SOL (5 ML) 100 MG/ML UDC GT SCH ×2 (08:15→21:28)
[2019-09-16] MEDS: ISOSORBIDE DINITRATE (20MG) 20 MG TABLET GT SCH ×3 (08:15→16:31)
[2019-09-16] MEDS: CHLORHEXIDINE GLUCONATE 15 ML UDC MM SCH (08:15)
[2019-09-16] MEDS: DOCUSATE SODIUM LIQ 100 MG/10 ML UDC NG SCH ×2 (08:15→16:30)
[2019-09-16] MEDS: LINAGLIPTIN 5 MG TABLET GT SCH (08:15)
[2019-09-16] MEDS: FAMOTIDINE (20 MG) 20 MG TABLET GT SCH (08:16)
[2019-09-16] MEDS: AMLODIPINE BESYLATE 10 MG TABLET GT SCH (08:16)
[2019-09-16] MEDS: LACTOBACILLUS RHAMNOSUS GG 1 EACH CAP.SPRINK GT SCH ×2 (08:16→16:30)
[2019-09-16] MEDS: HEPARIN SODIUM, PORCINE 5000 UNITS/1 ML VIAL SQ SCH ×2 (08:19→21:00)
[2019-09-16] MEDS: LINEZOLID RTU BAG 600 MG in PREMIX 1 EA IV SCH ×2 (08:52→21:28)
[2019-09-16] MEDS: MEROPENEM 1 G in IV NS 0.9% 100 ML IV SCH ×2 (11:11→23:42)
[2019-09-16 12:00] VITALS: BP 135/67
--- NOTE | 2019-09-16 13:27 | NUR ---
RN NOTE 2 OF PATIENT'S BP MEDS NOT GIVEN. PATIENT HAS 4 DIFFERENT BP MEDS AT 1300.
[2019-09-16 16:00] VITALS: BP 125/61
[2019-09-16] MEDS: NEPRO 1,000 ML BOTTLE GT PRN (16:29)
--- NOTE | 2019-09-16 18:45 | NUR ---
RN CLOSING NOTE PATIENT IN BED, ON VENT SATING WELL AT 100%. ALERT AND ORIENTED, NO COMPLAINS OF ANY PAIN. ON CANNON, WITH 450ML OUTPUT. HAD X1 BM. ON NEPRO AT 40 ML/HR. HAS LEFT UA #20 AND RIGHT UA MIDLINE, TKO. LAST BS 172, INSULIN COVERAGE 3 UNITS. PER MD, MAY NEED TO RESTART HD AGAIN. BED LOCKED AND IN LOWEST POSITION. CALL LIGHT WITHIN REACH. WILL ENDORSE TO NOC SHIFT FOR SALLY
[2019-09-16 20:00] VITALS: BP 140/62
--- NOTE | 2019-09-16 20:38 | NUR ---
RT NOTE PT RECEIVED TRACHED ON MECHANICAL VENTILATION. PT AWAKE/ALERT. CUFF CHECKED VIA INCOME TAX INVESTIGATOR. SX DONE, TRACH SECURED AND PATENT. ALARMS ON AND AUDIBLE. VENT PLUGGED TO RED OUTLET. NO SOB NOTED. WILL MONITOR T/O SHIFT. Addendum: 09/16/19 at 2040 by MEGHAN MEHTA RT Amended: Links added.
--- NOTE | 2019-09-16 20:57 | NUR ---
MANAGER QUANTITATIVE NOTES RECEIVED PT ON BED. A/O X 4. ON TELE MONITOR SR. ON MECH VENT SETTING SATURATING WELL. ON GTUBE FEEDING NO RESIDUAL NOTED. CANNON CATH DRAINING YELLOW URINE, IV ACCESS ON TOM MIDLINE PATENT AND INTACT. HEAD OF BED ELEVATED. SIDE RAILS UP. CALL LIGHT WITHIN REACH. BED ALARM ON. WILL MONITOR PT CLOSELY.
--- NOTE | 2019-09-16 20:59 | NUR ---
CAR RESTORER NOTES PT AGREED WITH HD ACCESS INSERTION. EXPLAINED BENEFITS. WITNESS BY CUATE FISCHER.INFORMED CONSENT SIGNED.
[2019-09-16] MEDS ORDERED: VANCOMYCIN 0.75 GM in IV D5W 250 ML IV SCH (21:00)
[2019-09-16] MEDS ORDERED: IPRATROPIUM NEB FS 0.5 MG/2.5 ML AMPUL.NEB ONE (21:30)
--- NOTE | 2019-09-16 21:33 | NUR ---
HIDE TRIMMER NOTES HEPARIN NOT GIVEN. ON GOING HD ACCESS INSERTION.
[2019-09-16] MEDS: DOXAZOSIN MESYLATE (4 MG) 4 MG TABLET GT SCH (22:05)
[2019-09-16] MEDS: SENNOSIDES 8.6 MG TABLET GT SCH (22:05)
[2019-09-16] MEDS: POLYETHYLENE GLYCOL 3350 17 GM POWD.PACK PO SCH (22:05)
[2019-09-17] VITALS: BP 126/63
[2019-09-17 04:00] VITALS: BP 159/73
[2019-09-17] MEDS: BLOOD SUGAR DIAGNOSTIC 1 EACH STRIP IN SCH ×4 (05:20→23:24)
[2019-09-17] MEDS: INSULIN REGULAR, HUMAN 100 UNIT/ML 3 ML VIAL SQ PRN ×4 (05:22→23:29)
[2019-09-17] MEDS: hydrALAZINE HCL 25 MG TABLET GT SCH ×3 (05:25→20:27)
[2019-09-17] MEDS: CLONIDINE HCL 0.1 MG TABLET GT SCH ×3 (05:25→20:28)
[2019-09-17] MEDS: LABETALOL HCL (100MG) 100 MG TABLET GT SCH ×3 (05:26→20:27)
[2019-09-17 06:46] LABS: BASOPHILS % (AUTO) 0.5 % (0.0-2.0); EOSINOPHILS % (AUTO) 6.4 % (0.0-6.0); HEMATOCRIT 23 % (39-51); HEMOGLOBIN 7.6 g/dL (13.5-17.5); LYMPHOCYTES % (AUTO) 9.3 % (20.0-44.0); MEAN CORPUSCULAR HGB CONC 34 g/dl (31.0-36.0); MEAN CORPUSCULAR VOLUME 90 fL (80-96); MONOCYTES # (AUTO) 0.8 /CMM (0.1-1.30); MONOCYTES % (AUTO) 7.7 % (2.0-12.0); NEUTROPHILS # (AUTO) 8.2 /CMM (1.8-8.9); NEUTROPHILS % (AUTO) 76.1 % (43.0-81.0); PLATELET COUNT (AUTO) 359 /CMM (150-450); RED BLOOD CELL COUNT(AUTO) 2.55 MIL/uL (4.5-6.0); WHITE BLOOD COUNT (AUTO) 10.8 K/uL (4.3-11.0)
[2019-09-17 06:56] LABS: ALBUMIN 2.3 g/dL (3.4-5.0); BILIRUBIN,TOTAL 0.5 mg/dL (0.2-1.0); CALCIUM, SERUM 9.7 mg/dL (8.5-10.1); CREATININE 5.3 mg/dL (0.6-1.3); MAGNESIUM 3.2 mg/dL (1.8-2.4); PHOSPHORUS 4.7 mg/dL (2.5-4.9); POTASSIUM 3.5 mmol/L (3.5-5.1); TOTAL PROTEIN, SERUM 7.2 g/dL (6.4-8.2)
--- NOTE | 2019-09-17 07:22 | NUR ---
teletype clerk notes no acute changes noted during the shift. provided comfort and safety. will endorse to the am nurse for continuity of care.
[2019-09-17 08:00] VITALS: BP 164/76
--- NOTE | 2019-09-17 08:03 | NUR ---
RN OPENING NOTES PT IS AWAKE AND WATCHING TELEVISION ASKED PT IF HE IS AWARE OF PLAN OF CARE FOR TODAY PT NODS HIS HEAD. PT DENIES SOB OR PAIN AT PRESENT MOMENT. REPORT RECEIVED FROM TANK FILLER RN. PT HAS G-TUBE FEEDING RUNNING AT 40 MLS/HR. PT WILL BE HAVING DIALYSIS FOR THE FIRST TIME TODAY. PT HAS A CANNON DRAINING TO GRAVITY. BED IS LOCKED AND IN LOWEST POSITIION WITH CALL LIGHT IN REACH. WILL CONTINUE TO MONITOR PT.
[2019-09-17] MEDS: FERROUS SULFATE UDC 300 MG/5 ML UDC GT SCH (09:44)
[2019-09-17] MEDS: SPIRONOLACTONE 25 MG TABLET GT SCH (09:44)
[2019-09-17] MEDS: LACTOBACILLUS RHAMNOSUS GG 1 EACH CAP.SPRINK GT SCH ×2 (09:44→16:36)
[2019-09-17] MEDS: DOCUSATE SODIUM LIQ 100 MG/10 ML UDC NG SCH ×2 (09:44→16:36)
[2019-09-17] MEDS: CHLORHEXIDINE GLUCONATE 15 ML UDC MM SCH (09:44)
[2019-09-17] MEDS: FAMOTIDINE (20 MG) 20 MG TABLET GT SCH (09:44)
[2019-09-17] MEDS: LINAGLIPTIN 5 MG TABLET GT SCH (09:44)
[2019-09-17] MEDS: LEVETIRACETAM SOL (5 ML) 100 MG/ML UDC GT SCH ×2 (09:44→20:25)
[2019-09-17] MEDS: MINOXIDIL (2.5MG) 2.5 MG TABLET GT SCH (09:45)
[2019-09-17] MEDS: ISOSORBIDE DINITRATE (20MG) 20 MG TABLET GT SCH ×3 (09:46→16:36)
[2019-09-17] MEDS: LINEZOLID RTU BAG 600 MG in PREMIX 1 EA IV SCH ×2 (09:46→20:28)
[2019-09-17 12:00] VITALS: BP 167/79
[2019-09-17] MEDS: AMLODIPINE BESYLATE 10 MG TABLET GT SCH (12:22)
[2019-09-17] MEDS: MEROPENEM 1 G in IV NS 0.9% 100 ML IV SCH ×2 (12:22→22:55)
--- NOTE | 2019-09-17 15:54 | NUR ---
GALINDO MUNOZ FOR PAIN MEDICATION ORDERS. AWAITING CALL. Addendum: 09/17/19 at 1830 by DOMINIC REYES RN ORDERS RECEIVED AND CARRIED OUT AT [id number]
[2019-09-17 16:00] VITALS: BP 146/60
[2019-09-17] MEDS: HYDROCODONE/APAP 5/325MG 1 EACH TABLET PO PRN (16:36)
--- NOTE | 2019-09-17 19:15 | NUR ---
RN OPENING NOTES: PATIENT IN BED, ASLEEP, BUT EASILY AROUSABLE. NO RESPIRATORY DISTRESS. PATIENT ON MECHANICAL VENT TRACH SETTINGS ORDERED AND TOLERATING WELL. ON CARDIAC MONITORING. HOB ELEVATED. ON GTF NEPHRO AT 40 MLS/HR, TOLERATING WELL. ON CANNON CATH PATENT AND DRAINING CLEAR YELLOW URINE. BED IS LOCKED AND IN LOWEST POSITION. CALL LIGHT WITHIN REACH. WILL CONT. TO MONITOR. Addendum: 09/18/19 at 0147 by MARTHA WALTERS RN HD CATH ON (R) FEMORAL INTACT. TOM MIDLINE INTACT, PATENT, AND ON TKO. SHARON IV 20G INTACT, PATENT, AND FLUSHING WELL. CROSSING GATEMAN SHOWS SR WITH HR 70s.
--- NOTE | 2019-09-17 19:29 | NUR ---
RN CLOSING NOTES PT DENIES SOB OR PAIN AT PRESENT MOMENT. REPORT GIVEN TO WORKCELL OPERATOR RN. PT HAS G-TUBE FEEDING RUNNING AT 40 MLS/HR. PT HAD DIALYSIS FOR THE FIRST TIME TODAY TOLERATED PROCEDURE. PT HAS A CANNON DRAINING TO GRAVITY. BED IS LOCKED AND IN LOWEST POSITION WITH CALL LIGHT IN REACH. WILL ENDORSE SALLY TO WORKCELL OPERATOR RN
[2019-09-17 20:00] VITALS: BP 132/59
[2019-09-17] MEDS: SENNOSIDES 8.6 MG TABLET GT SCH (22:26)
[2019-09-17] MEDS: POLYETHYLENE GLYCOL 3350 17 GM POWD.PACK PO SCH (22:26)
[2019-09-17] MEDS: DOXAZOSIN MESYLATE (4 MG) 4 MG TABLET GT SCH (22:27)
[2019-09-17] MEDS: NEPRO 1,000 ML BOTTLE GT PRN (23:04)
[2019-09-18] VITALS: BP 127/66
[2019-09-18 04:00] VITALS: BP 147/53
[2019-09-18] MEDS: hydrALAZINE HCL 25 MG TABLET GT SCH ×3 (04:16→22:27)
[2019-09-18] MEDS: LABETALOL HCL (100MG) 100 MG TABLET GT SCH ×3 (04:16→22:27)
[2019-09-18] MEDS: CLONIDINE HCL 0.1 MG TABLET GT SCH ×3 (04:16→23:45)
[2019-09-18] MEDS: BLOOD SUGAR DIAGNOSTIC 1 EACH STRIP IN SCH ×3 (05:23→17:25)
[2019-09-18] MEDS: INSULIN REGULAR, HUMAN 100 UNIT/ML 3 ML VIAL SQ PRN ×3 (05:25→17:37)
--- NOTE | 2019-09-18 05:40 | NUR ---
RT NOTES TRACH TUBE IN PLACE, PATENT, AND SECURED WITH TRACH TIE. ALARMS ON AND AUDIBLE. VENT PLUGGED IN TO THE RED OUTLET. BACK TRACH AND AMBU BAG BY THE BEDSIDE. NO SIGNS OF ANY DISTRESS AT THIS TIME. Addendum: 09/18/19 at 0540 by LORI LOERA RT Amended: Links added.
--- NOTE | 2019-09-18 06:00 | NUR ---
RN NOTE: PATIENT'S WEIGHT TODAY 187 LBS FROM 193 LBS. PATIENT HAD DIALYSIS YESTERDAY. PER AM NURSE YESTERDAY, 1L WAS REMOVED.
[2019-09-18 06:14] LABS: BASOPHILS % (AUTO) 0.5 % (0.0-2.0); EOSINOPHILS % (AUTO) 6.9 % (0.0-6.0); HEMATOCRIT 23 % (39-51); HEMOGLOBIN 7.6 g/dL (13.5-17.5); LYMPHOCYTES # (AUTO) 0.8 /CMM (0.8-4.8); LYMPHOCYTES % (AUTO) 9.8 % (20.0-44.0); MEAN CORPUSCULAR HGB CONC 33 g/dl (31.0-36.0); MEAN CORPUSCULAR VOLUME 89 fL (80-96); MONOCYTES # (AUTO) 0.9 /CMM (0.1-1.30); MONOCYTES % (AUTO) 11.1 % (2.0-12.0); NEUTROPHILS # (AUTO) 6.1 /CMM (1.8-8.9); NEUTROPHILS % (AUTO) 71.7 % (43.0-81.0); PLATELET COUNT (AUTO) 361 /CMM (150-450); RED BLOOD CELL COUNT(AUTO) 2.55 MIL/uL (4.5-6.0); WHITE BLOOD COUNT (AUTO) 8.5 K/uL (4.3-11.0)
[2019-09-18 06:33] LABS: CALCIUM, SERUM 9.4 mg/dL (8.5-10.1); CREATININE 3.4 mg/dL (0.6-1.3); MAGNESIUM 2.8 mg/dL (1.8-2.4); PHOSPHORUS 3.8 mg/dL (2.5-4.9); POTASSIUM 3.2 mmol/L (3.5-5.1)
--- NOTE | 2019-09-18 06:51 | NUR ---
RN CLOSING NOTES: PATIENT IN BED, AWAKE, AND RESPONSIVE TO VERBAL STIMULI AND LIGHT TOUCH WITH EYES OPEN. NO SOB. NO S/S OF PAIN. ON VENT TRACH SETTINGS, TOLERATING WELL. NO FACIAL GRIMACING. ON CARDIAC MONITORING SHOWING SR AND HR 80s. HOB ELEVATED. ON GTF. NEPHRO AT 40 MLS/HR, TOLERATING WELL. CANNON CATH PATENT AND DRAINING CLEAR YELLOW URINE. HD CATH ON (R) FEMORAL INTACT. TOM MIDLINE PATENT AND INTACT, TKO. SHARON IV #20 INTACT, PATENT, AND FLUSHING WELL. SALINE LOCKED. NO ACTIVE BLEEDING. SAFETY PRECAUTIONS IMPLEMENTED. CALL LIGHT WITHIN REACH. WILL CONT. TO MONITOR. WILL ENDORSE TO NEXT SHIFT NURSE FOR SALLY.
[2019-09-18 08:00] VITALS: BP 162/78
[2019-09-18] MEDS: LEVETIRACETAM SOL (5 ML) 100 MG/ML UDC GT SCH ×2 (08:55→22:24)
[2019-09-18] MEDS: CHLORHEXIDINE GLUCONATE 15 ML UDC MM SCH (08:55)
[2019-09-18] MEDS: FERROUS SULFATE UDC 300 MG/5 ML UDC GT SCH (08:55)
[2019-09-18] MEDS: DOCUSATE SODIUM LIQ 100 MG/10 ML UDC NG SCH ×2 (08:55→16:52)
[2019-09-18] MEDS: LINAGLIPTIN 5 MG TABLET GT SCH (08:56)
[2019-09-18] MEDS: FAMOTIDINE (20 MG) 20 MG TABLET GT SCH (08:56)
[2019-09-18] MEDS: SPIRONOLACTONE 25 MG TABLET GT SCH (08:56)
[2019-09-18] MEDS: ISOSORBIDE DINITRATE (20MG) 20 MG TABLET GT SCH ×3 (08:56→16:52)
[2019-09-18] MEDS: LINEZOLID 600 MG TABLET GT SCH ×2 (08:57→22:24)
[2019-09-18] MEDS: MINOXIDIL (2.5MG) 2.5 MG TABLET GT SCH (08:57)
[2019-09-18] MEDS: LACTOBACILLUS RHAMNOSUS GG 1 EACH CAP.SPRINK GT SCH ×2 (08:58→16:52)
[2019-09-18] MEDS: AMLODIPINE BESYLATE 10 MG TABLET GT SCH (08:58)
[2019-09-18 12:00] VITALS: BP 129/66
[2019-09-18] MEDS: MEROPENEM 1 G in IV NS 0.9% 100 ML IV SCH ×2 (12:39→23:36)
[2019-09-18 16:00] VITALS: BP 130/64
[2019-09-18 20:00] VITALS: BP 134/69
--- NOTE | 2019-09-18 20:00 | NUR ---
RN NOTES: RECEIVED PATIENT IN BED, AWAKE, AND RESPONSIVE TO VERBAL STIMULI AND LIGHT TOUCH WITH EYES OPEN. NO SOB. NO S/S OF PAIN. ON VENT TRACH SETTINGS, TOLERATING WELL. NO FACIAL GRIMACING. ON CARDIAC MONITORING . HOB ELEVATED. ON GTF. NEPHRO AT 40 MLS/HR, TOLERATING WELL. CANNON CATH PATENT AND DRAINING CLEAR YELLOW URINE. HD CATH ON (R) FEMORAL INTACT. TOM MIDLINE PATENT AND INTACT, TKO. SHARON IV #20 INTACT, PATENT, AND FLUSHING WELL. SALINE LOCKED. NO ACTIVE BLEEDING NOTED. SAFETY PRECAUTIONS IMPLEMENTED. CALL LIGHT WITHIN REACH. WILL CONT. TO MONITOR PATIENT CLOSELY.
[2019-09-18] MEDS: SENNOSIDES 8.6 MG TABLET GT SCH (22:27)
[2019-09-18] MEDS: DOXAZOSIN MESYLATE (4 MG) 4 MG TABLET GT SCH (22:28)
[2019-09-18] MEDS: POLYETHYLENE GLYCOL 3350 17 GM POWD.PACK PO SCH (22:28)
[2019-09-18] MEDS: HYDROCODONE/APAP 5/325MG 1 EACH TABLET PO PRN (22:53)
[2019-09-19] VITALS: BP 143/67
[2019-09-19] MEDS: BLOOD SUGAR DIAGNOSTIC 1 EACH STRIP IN SCH ×5 (01:25→23:45)
[2019-09-19] MEDS: INSULIN REGULAR, HUMAN 100 UNIT/ML 3 ML VIAL SQ PRN ×5 (01:26→23:50)
[2019-09-19 04:00] VITALS: BP 140/66
[2019-09-19] MEDS: CLONIDINE HCL 0.1 MG TABLET GT SCH ×3 (06:16→21:51)
[2019-09-19] MEDS: LABETALOL HCL (100MG) 100 MG TABLET GT SCH ×3 (06:16→21:53)
[2019-09-19] MEDS: hydrALAZINE HCL 25 MG TABLET GT SCH ×3 (06:17→21:52)
[2019-09-19 06:18] LABS: BASOPHILS # (AUTO) 0.1 /CMM (0.0-0.2); BASOPHILS % (AUTO) 0.8 % (0.0-2.0); EOSINOPHILS % (AUTO) 6.5 % (0.0-6.0); HEMATOCRIT 22 % (39-51); HEMOGLOBIN 7.6 g/dL (13.5-17.5); LYMPHOCYTES # (AUTO) 1.1 /CMM (0.8-4.8); LYMPHOCYTES % (AUTO) 12.1 % (20.0-44.0); MEAN CORPUSCULAR HGB CONC 34 g/dl (31.0-36.0); MEAN CORPUSCULAR VOLUME 89 fL (80-96); MONOCYTES # (AUTO) 1.1 /CMM (0.1-1.30); MONOCYTES % (AUTO) 12.1 % (2.0-12.0); NEUTROPHILS # (AUTO) 6.1 /CMM (1.8-8.9); NEUTROPHILS % (AUTO) 68.5 % (43.0-81.0); PLATELET COUNT (AUTO) 367 /CMM (150-450); WHITE BLOOD COUNT (AUTO) 8.9 K/uL (4.3-11.0)
[2019-09-19 06:44] LABS: ALBUMIN 2.3 g/dL (3.4-5.0); BILIRUBIN,TOTAL 0.4 mg/dL (0.2-1.0); CALCIUM, SERUM 9.4 mg/dL (8.5-10.1); CREATININE 2.9 mg/dL (0.6-1.3); MAGNESIUM 2.5 mg/dL (1.8-2.4); PHOSPHORUS 3.9 mg/dL (2.5-4.9); POTASSIUM 3.1 mmol/L (3.5-5.1); TOTAL PROTEIN, SERUM 7.1 g/dL (6.4-8.2)
[2019-09-19 08:00] VITALS: BP 146/67
--- NOTE | 2019-09-19 08:00 | NUR ---
TELE1/RN AM SHIFT INITIAL NOTES RECEIVED PT ASLEEP IN BED, EASILY AROUSED, PT ALERT, OPEN EYES, MUMBLES WORDS, NO GRIMACING OR ACUTE CHANGE OF CONDITION NOTED. ON VENTILATOR WITH RATES SET PRESCRIBED, SATURATING @ 100%, RESPIRATIONS EVEN AND UNLABORED, LUNG SOUNDS CLEAR, SUCTIONED FOR AIRWAY CLEARANCE. GT FEEDING ON GOING @ 40CC/HR, NO GASTRIC RESIDUAL NOTED, FLUSHED, PATENT. CANNON CATHETER INTACT WITH YELLOW URINE OUTPUT. PT IS COMFORTABLE, SCHEDULED AM MEDS TO BE GIVEN. PT IS EXPECTED TO HAVE DIALYSIS TX TODAY. CL WITHIN REACHED AND SAFETY MAINTAINED. ON GOING MONITORING. Addendum: 09/19/19 at 1050 by DARSHAN MANN RN ADDENDUM: PT ON TELE MONITORING WITH SINUS RHYTHM, HR 83.
[2019-09-19] MEDS: FERROUS SULFATE UDC 300 MG/5 ML UDC GT SCH (08:57)
[2019-09-19] MEDS: CHLORHEXIDINE GLUCONATE 15 ML UDC MM SCH (08:57)
[2019-09-19] MEDS: LEVETIRACETAM SOL (5 ML) 100 MG/ML UDC GT SCH ×2 (08:57→21:53)
[2019-09-19] MEDS: SPIRONOLACTONE 25 MG TABLET GT SCH (08:57)
[2019-09-19] MEDS: DOCUSATE SODIUM LIQ 100 MG/10 ML UDC NG SCH ×2 (08:57→16:41)
[2019-09-19] MEDS: LINAGLIPTIN 5 MG TABLET GT SCH (08:58)
[2019-09-19] MEDS: FAMOTIDINE (20 MG) 20 MG TABLET GT SCH (08:58)
[2019-09-19] MEDS: LINEZOLID 600 MG TABLET GT SCH ×2 (08:58→21:52)
[2019-09-19] MEDS: MINOXIDIL (2.5MG) 2.5 MG TABLET GT SCH (08:58)
[2019-09-19] MEDS: LACTOBACILLUS RHAMNOSUS GG 1 EACH CAP.SPRINK GT SCH ×2 (08:58→16:41)
[2019-09-19] MEDS: ISOSORBIDE DINITRATE (20MG) 20 MG TABLET GT SCH ×3 (08:58→16:41)
[2019-09-19] MEDS: AMLODIPINE BESYLATE 10 MG TABLET GT SCH (08:58)
--- NOTE | 2019-09-19 10:00 | NUR ---
TELE1/FLEXBOARD OPERATOR TX DIALYSIS TREATMENT INITIATED, ON GOING MONITORNG.
[2019-09-19 12:00] VITALS: BP 155/71
[2019-09-19] MEDS: MEROPENEM 1 G in IV NS 0.9% 100 ML IV SCH ×2 (13:04→23:45)
[2019-09-19 16:00] VITALS: BP 107/59
--- NOTE | 2019-09-19 17:03 | NUR ---
TELE1/RN AFTERNOON ROUNDS PM CARE PROVIDED, NO CHANGE OF CONDITION. MONITORING CONTINUED.
--- NOTE | 2019-09-19 19:19 | NUR ---
TELE1/RN AM SHIFT END NOTES ALL NEEDS MET. PT ENDORSED TO PM NURSE TO CONTINUE CARE. CL WITHIN REACHED AND SAFETY MAINTAINED.
[2019-09-19 20:00] VITALS: BP 112/60
--- NOTE | 2019-09-19 20:24 | NUR ---
PT RECEIVED ON MECH VENT WITH NOTED SETTING. PT TOLERATING SETTING WELL. TRACH PATENT AND SECURE. NO SOB OR DISTRESS NOTED. VENT PLUGGED INTO RED OUTLET. ALARMS SET AND AUDIBLE. COAL CARRIER DONE , SX DONE PRN. WILL MONITOR THE PATIENT FOR ANY CHANGES
[2019-09-19] MEDS: SENNOSIDES 8.6 MG TABLET GT SCH (21:51)
[2019-09-19] MEDS: DOXAZOSIN MESYLATE (4 MG) 4 MG TABLET GT SCH (21:52)
[2019-09-19] MEDS: POLYETHYLENE GLYCOL 3350 17 GM POWD.PACK PO SCH (21:53)
[2019-09-20] VITALS (7 sets, daily range): BP systolic 138–162; BP diastolic 64–77
--- NOTE | 2019-09-20 02:20 | NUR ---
RN NOTE: RECEIVED REPORT FROM CORA FISCHER. PATIENT IN BED, ASLEEP, BUT EASILY AROUSABLE. ON VENT TRACH SETTING ORDERED AND TOLERATING WELL. NO RESPIRATORY DISTRESS. NO S/S OF PAIN. NO FACIAL GRIMACING. TOM MIDLINE INTACT, PATENT, AND FLUSHING WELL. SHARON IV 20G INTACT, PATENT, AND FLUSHING WELL. SALINE LOCKED. CANNON INTACT AND DRAINING CLEAR YELLOW URINE. HD CATH ON RIGHT FEMORAL INTACT. WILL CONT. TO MONITOR.
--- NOTE | 2019-09-20 02:25 | NUR ---
RN NOTES PATIENT REPORT GIVEN TO AMADO THOMAS TRANSFER OF CARE.
[2019-09-20] MEDS: Z GUARD REMEDY 2 OZ OINT TP PRN (03:36)
[2019-09-20] MEDS: hydrALAZINE HCL 25 MG TABLET GT SCH ×2 (04:40→13:19)
[2019-09-20] MEDS: CLONIDINE HCL 0.1 MG TABLET GT SCH ×2 (04:41→13:18)
[2019-09-20] MEDS: LABETALOL HCL (100MG) 100 MG TABLET GT SCH ×2 (04:41→13:18)
[2019-09-20] MEDS: NEPRO 1,000 ML BOTTLE GT PRN (04:42)
[2019-09-20] MEDS: BLOOD SUGAR DIAGNOSTIC 1 EACH STRIP IN SCH ×2 (05:57→11:40)
[2019-09-20] MEDS: INSULIN REGULAR, HUMAN 100 UNIT/ML 3 ML VIAL SQ PRN ×2 (06:00→11:44)
[2019-09-20 06:31] LABS: BASOPHILS # (AUTO) 0.1 /CMM (0.0-0.2); BASOPHILS % (AUTO) 0.8 % (0.0-2.0); EOSINOPHILS % (AUTO) 4.4 % (0.0-6.0); HEMATOCRIT 23 % (39-51); HEMOGLOBIN 7.8 g/dL (13.5-17.5); LYMPHOCYTES # (AUTO) 1.1 /CMM (0.8-4.8); LYMPHOCYTES % (AUTO) 10.8 % (20.0-44.0); MEAN CORPUSCULAR HGB CONC 34 g/dl (31.0-36.0); MEAN CORPUSCULAR VOLUME 90 fL (80-96); MONOCYTES % (AUTO) 9.2 % (2.0-12.0); NEUTROPHILS # (AUTO) 7.8 /CMM (1.8-8.9); NEUTROPHILS % (AUTO) 74.8 % (43.0-81.0); PLATELET COUNT (AUTO) 381 /CMM (150-450); WHITE BLOOD COUNT (AUTO) 10.4 K/uL (4.3-11.0)
[2019-09-20 06:49] LABS: CALCIUM, SERUM 9.5 mg/dL (8.5-10.1); CREATININE 2.1 mg/dL (0.6-1.3); MAGNESIUM 2.3 mg/dL (1.8-2.4); PHOSPHORUS 3.9 mg/dL (2.5-4.9); POTASSIUM 3.3 mmol/L (3.5-5.1)
--- NOTE | 2019-09-20 06:52 | NUR ---
RN CLOSING NOTES: PATIENT IN BED, ASLEEP, BUT EASILY AROUSABLE. ON VENT TRACH SETTING ORDERED AND TOLERATING WELL. NO SOB. NO S/S OF PAIN. ON MECHANICAL MANUFACTURING TECHNICIAN SHOWING SR. TOM MIDLINE INTACT, PATENT, AND FLUSHING WELL, ON TKO. SHARON IV 20G INTACT, PATENT, AND FLUSHING WELL. SALINE LOCKED. CANNON INTACT AND DRAINING CLEAR YELLOW URINE. HD CATH ON RIGHT FEMORAL INTACT. GTF FEEDING TOLERATING WELL. NO RESIDUALS. HOB ELEVATED. WILL ENDORSE TO AM SHIFT NURSE FOR CONTINUITY OF CARE.
--- NOTE | 2019-09-20 07:37 | NUR ---
RN OPENING NOTES RECEIVED PATIENT RESTING COMFORTABLY IN BED, DOES NOT SHOW ANY S/SX OF RESP DISTRESS OR SOB. HE IS AOX3, NON-VERBAL BUT IS ABLE TO MOUTH WORDS, AND NONAMBULATORY. TELE MONITOR SHOWING SINUS RHYTHM, NONPITTING EDEMA ON THE BLE. CANNON CATHETER IS INTACT AND PATENT. SKIN IS NOT INTACT, PSORIASIS ON L ARM, R THIGH CLOSED BLISTER. NEPRO IS RUNNING AT 40 ML/HR, NO RESIDUAL. TOM MIDLINE AND SHARON 20 G ARE INTACT AND PATENT. SAFETY MEASURES HAVE BEEN IMPLEMENTED, CALL LIGHT IS WITHIN REACH, BED IS IN LOWEST AND LOCKED POSITION, WILL CONTINUE TO MONITOR FOR ANY CHANGES.
--- NOTE | 2019-09-20 07:51 | NUR ---
RT Pt received trached on the vent with noted settings. Pt is awake and alert. Vent is plugged into red outlet. No respiratory distress noted at this time. Addendum: 09/20/19 at 0811 by JUDY REYES RT Amended: Links added.
[2019-09-20] MEDS: LEVETIRACETAM SOL (5 ML) 100 MG/ML UDC GT SCH (09:00)
[2019-09-20] MEDS: CHLORHEXIDINE GLUCONATE 15 ML UDC MM SCH (09:00)
[2019-09-20] MEDS: FERROUS SULFATE UDC 300 MG/5 ML UDC GT SCH (09:00)
[2019-09-20] MEDS: DOCUSATE SODIUM LIQ 100 MG/10 ML UDC NG SCH ×2 (09:00→17:26)
[2019-09-20] MEDS: LACTOBACILLUS RHAMNOSUS GG 1 EACH CAP.SPRINK GT SCH ×2 (09:01→17:26)
[2019-09-20] MEDS: FAMOTIDINE (20 MG) 20 MG TABLET GT SCH (09:01)
[2019-09-20] MEDS: LINAGLIPTIN 5 MG TABLET GT SCH (09:01)
[2019-09-20] MEDS: LINEZOLID 600 MG TABLET GT SCH (09:01)
[2019-09-20] MEDS: SPIRONOLACTONE 25 MG TABLET GT SCH (09:01)
[2019-09-20] MEDS: MINOXIDIL (2.5MG) 2.5 MG TABLET GT SCH (09:06)
[2019-09-20] MEDS: ISOSORBIDE DINITRATE (20MG) 20 MG TABLET GT SCH ×3 (09:06→17:26)
[2019-09-20] MEDS: AMLODIPINE BESYLATE 10 MG TABLET GT SCH (09:06)
[2019-09-20] MEDS: MEROPENEM 1 G in IV NS 0.9% 100 ML IV SCH (10:27)
[2019-09-20] MEDS ORDERED: POTASSIUM CHLORIDE 10 MEQ TABLET.SA PO ONE (11:30)
[2019-09-20] MEDS ORDERED: Linezolid GT (14:18)
[2019-09-20] MEDS ORDERED: LACT1CAP72 GT (14:18)
[2019-09-20] MEDS ORDERED: MERO500V3 IV (14:19)
[2019-09-20] MEDS ORDERED: NEPRO 1,000 ML BOTTLE GT PRN (15:00)
--- NOTE | 2019-09-20 17:45 | NUR ---
pt has been discharged, transferred to subacute on second floor. exit care provided. report given to kodi bah
== END 2019-09-20 17:48 | DRG 720 ==
LOC: ER 17:07 → ICU 21:52 → TELE1 09-13 06:13
PROVIDERS: ADMIT Nurse Practitioner Acute Care; ATTEND Nurse Practitioner Acute Care
PROC: 05HC33Z Insertion of Infusion Device into Left Basilic Vein, Percutaneous Approach (ICD-10-PCS; principal; 2019-09-09)
PROC: 5A1955Z Respiratory Ventilation, Greater than 96 Consecutive Hours (ICD-10-PCS; principal; 2019-09-09)
DX: A41.9 Sepsis, unspecified organism (principal); J96.21 Acute and chronic respiratory failure with hypoxia; N17.0 Acute kidney failure with tubular necrosis; R65.21 Severe sepsis with septic shock; Z99.11 Dependence on respirator [ventilator] status; E44.0 Moderate protein-calorie malnutrition; Z93.0 Tracheostomy status; J18.9 Pneumonia, unspecified organism; G93.41 Metabolic encephalopathy; I13.0 Hypertensive heart and chronic kidney disease with heart failure and stage 1 through stage 4 chronic kidney disease, or unspecified chronic kidney disease; E11.22 Type 2 diabetes mellitus with diabetic chronic kidney disease; D63.8 Anemia in other chronic diseases classified elsewhere; N18.9 Chronic kidney disease, unspecified; Z93.1 Gastrostomy status; Z86.73 Personal history of transient ischemic attack (TIA), and cerebral infarction without residual deficits; Z79.899 Other long term (current) drug therapy; Z79.84 Long term (current) use of oral hypoglycemic drugs; E11.65 Type 2 diabetes mellitus with hyperglycemia; E87.1 Hypo-osmolality and hyponatremia; I25.10 Atherosclerotic heart disease of native coronary artery without angina pectoris; Z90.49 Acquired absence of other specified parts of digestive tract; M85.9 Disorder of bone density and structure, unspecified; Y95 Nosocomial condition; Z79.4 Long term (current) use of insulin; I50.9 Heart failure, unspecified; J90 Pleural effusion, not elsewhere classified; R18.8 Other ascites; R56.1 Post traumatic seizures
CPT/HCPCS: 31720; 36415; 36600; 71045-TC; 71250-TC; 74018; 76770-TC; 80048-TC; 80053-TC; 80061-TC; 80076-TC; 80202-TC; 81000-TC; 82570-TC; 82803-TC; 82962-TC; 83540-TC; 83605-TC; 83735-TC; 83880; 84100-TC; 84155-TC; 84300-TC; 84443-TC; 84484-TC; 85025-TC; 85730-TC; 86706; 86850-TC; 87040-TC; 87081-TC; 87086-TC; 87340; 90935-TC; 93307-TC; 94002-TC; 94003-TC; 94760-TC; 94762-TC; 94799-TC; 99082-TC; A4216; A4623; A7526; C1750; G0378; J0885; J1644; J1815; J1940; J1953; J2020; J2185; J2270; J2543; J3370; J3490; J7030; J7050; J7060; J8597

== ENCOUNTER 2019-09-20 16:20 | Inpatient (IN) | payer OTHER ==
[~2019-09-20] VITALS: Ht 172.7 cm; Wt 82.6 kg
--- NOTE | 2019-09-20 15:50 | NUR ---
RT Pt transferred from [facility] to sub acute, pt switched over to HT70 vent with noted settings. Pt is awake and alert. Vent is plugged into red outlet. No SOB or respiratory distress noted at this time. Addendum: 09/20/19 at 1825 by JUDY REYES RT Amended: Links added.
[~2019-09-20 16:20] MED LIST changes: +LACT1CAP72 GT; +Linezolid GT; +MERO500V3 IV
--- NOTE | 2019-09-20 17:50 | NUR ---
Admitted 33-year-old male from [facility] under the care of Dr Arvind Valles with diagnoses of Chronic Hypoxemic Respiratory Failure, Tracheostomy, Left Upper Lobe Pneumonia, CVA with right hemiparesis, CKD, GT, HTN, Chronic Encephalopathy, Hx Intracranial Hemorrhage, DM, BMD, Post Traumatic Brain Injury, Seizure, Moderate Protein Calorie Malnutrition with Hypoalbuminemia. Pt on mechanical ventilator with setting of AC 14 VT 550 FiO2 30% PEEP +5. Started GT feeding Nepro at 45 mL/hr. HOB elevated to prevent aspiration. Made pt clean and comfortable in bed. No complaints of pain or discomfort. Pt able to gesture, nod, and mouth words to communicate. Call light within easy reach. Verified orders with Dr Arvind Valles. Notified Cassia Pringle that pt is in Subacute.
[2019-09-20 18:37] VITALS: BP 149/63
[2019-09-20] MEDS ORDERED: NA PHOS,M-B/NA PHOS,DI-BA 1 EA ENEMA RC PRN (20:00)
[2019-09-20] MEDS ORDERED: ACETAMINOPHEN 650 MG/20 ML UDC- SA PATIENTS-FEVER ONLY GT PRN (20:00)
[2019-09-20] MEDS ORDERED: NEPRO 1,000 ML BOTTLE GT PRN (20:00)
[2019-09-20] MEDS ORDERED: ALBUTEROL FS 2.5 MG/0.5 ML VIAL.NEB NEB PRN (20:00)
[2019-09-20] MEDS ORDERED: IPRATROPIUM NEB FS 0.5 MG/2.5 ML AMPUL.NEB NEB PRN (20:00)
[2019-09-20] MEDS ORDERED: MAGNESIUM HYDROXIDE 30 ML UDC GT PRN (20:00)
--- NOTE | 2019-09-20 20:00 | NUR ---
RN NOTES Received pt in bed, awake, alert and oriented x2. On vent with prescribed settings. In stable condition. Received new orders from Dr. Treadwell noted and carried out. Will continue to monitor.
[2019-09-20 20:07] VITALS: BP 133/60
[2019-09-20] MEDS: hydrALAZINE HCL 25 MG TABLET GT SCH (20:44)
[2019-09-20] MEDS: LEVETIRACETAM SOL (5 ML) 100 MG/ML UDC GT SCH (20:45)
[2019-09-20] MEDS: LABETALOL HCL (100MG) 100 MG TABLET GT SCH (20:45)
[2019-09-20] MEDS: DOCUSATE SODIUM LIQ 100 MG/10 ML UDC GT SCH (20:45)
[2019-09-20] MEDS: CLONIDINE HCL 0.1 MG TABLET GT SCH (20:45)
[2019-09-20] MEDS: METOCLOPRAMIDE HCL 10 MG TABLET GT SCH (20:45)
[2019-09-20] MEDS: MEROPENEM 500 MG in IV NS 0.9% 50 ML IV SCH (21:00)
[2019-09-20] MEDS ORDERED: LINEZOLID RTU BAG 600 MG in PREMIX 1 EA IV SCH (21:00)
[2019-09-20] MEDS: DOXAZOSIN MESYLATE (4 MG) 4 MG TABLET GT SCH (22:29)
[2019-09-20] MEDS: SENNOSIDES 8.6 MG TABLET GT SCH (22:29)
[2019-09-21] MEDS: IPRATROPIUM NEB FS 0.5 MG/2.5 ML AMPUL.NEB NEB SCH ×5 (01:30→20:05)
[2019-09-21] MEDS: ALBUTEROL FS 2.5 MG/0.5 ML VIAL.NEB NEB SCH ×5 (01:30→20:05)
[2019-09-21] MEDS: hydrALAZINE HCL 25 MG TABLET GT SCH ×3 (05:03→20:41)
[2019-09-21] MEDS: LABETALOL HCL (100MG) 100 MG TABLET GT SCH ×3 (05:04→20:42)
[2019-09-21] MEDS: METOCLOPRAMIDE HCL 10 MG TABLET GT SCH ×3 (05:04→20:42)
[2019-09-21] MEDS: CLONIDINE HCL 0.1 MG TABLET GT SCH ×3 (05:04→20:41)
[2019-09-21 07:59] VITALS: BP 181/78
[2019-09-21] MEDS: FAMOTIDINE (20 MG) 20 MG TABLET GT SCH (09:00)
[2019-09-21] MEDS: FERROUS SULFATE UDC 300 MG/5 ML UDC GT SCH (09:00)
[2019-09-21] MEDS: AMLODIPINE BESYLATE 10 MG TABLET GT SCH (09:00)
[2019-09-21] MEDS: ARGININE GT SCH ×2 (09:00→17:00)
[2019-09-21] MEDS: GLUTAMINE GT SCH ×2 (09:00→17:00)
[2019-09-21] MEDS: LEVETIRACETAM SOL (5 ML) 100 MG/ML UDC GT SCH ×2 (09:00→20:42)
[2019-09-21] MEDS: ISOSORBIDE DINITRATE (20MG) 20 MG TABLET GT SCH ×3 (09:00→17:20)
[2019-09-21] MEDS: CHLORHEXIDINE GLUCONATE 15 ML UDC MM SCH (09:00)
[2019-09-21] MEDS: LACTOBACILLUS RHAMNOSUS GG 1 EACH CAP.SPRINK GT SCH ×2 (09:00→17:20)
[2019-09-21] MEDS: MINOXIDIL (2.5MG) 2.5 MG TABLET GT SCH (09:00)
[2019-09-21] MEDS ORDERED: LINEZOLID 600 MG TABLET GT SCH (09:00)
[2019-09-21] MEDS: SPIRONOLACTONE 50 MG TABLET GT SCH (09:00)
[2019-09-21] MEDS: DOCUSATE SODIUM LIQ 100 MG/10 ML UDC GT SCH ×2 (09:00→20:42)
[2019-09-21] MEDS: CALCIUM GT SCH ×2 (09:00→17:00)
[2019-09-21] MEDS: SITAGLIPTIN PHOSPHATE 50 MG TABLET GT SCH (09:00)
[2019-09-21] MEDS: MEROPENEM 500 MG in IV NS 0.9% 50 ML IV SCH (09:34)
--- NOTE | 2019-09-21 09:40 | NUR ---
Seen and examined by Dr. Braun, asked if patient can a shower in the shower room, he said to do it next week. Paged Dr. Son, radio time salesperson fro Dr. Valles to clarify some of admission orders awaiting for MD to respond.
--- NOTE | 2019-09-21 10:30 | NUR ---
Dr. Valles passed by, asked if patient will have dialysis, and to review the chart as there are few things that needed clarification from admission orders, he said that he will take care of it.
[2019-09-21] MEDS ORDERED: EPOETIN ALFA (10,000 UNIT) 10,000 UNIT/ML VIAL SQ SCH (11:00)
--- NOTE | 2019-09-21 12:12 | NUR ---
JOELLE contacted new residents responsible green party, Keith Mustafa [phone] who stated that he is the patients uncle and is making decisions on behalf of the patient. Per Keith, pt. does not have POA or Conservator. Per Keith, the patients parents are , there is no spouse or children. Per Keith, the patient has 2 sisters of legal age: Cassia Pringle [phone] and Lizy Pringle (no tel. # available at the moment) who both reside in the [facility]. However, per Keith Cassia is allegedly currently at an inpatient drug rehab and is incapable of making sound decisions on the pt.s behalf. Per Keith, Lizy is allegedly not involved or supportive in the pt.s care. Per Keith, he is available to meet JOELLE on 09/22/19 at 8:30 am to fill out intake paperwork. Per Keith he will bring Juliet number for the purpose of gathering verbal consent that Keith Mustafa should be the responsible green party for the resident. JOELLE called Cassia Pringle [phone] and call went straight to voicemail. JOELLE communicated in the voicemail that JOELLE needs to speak to Cassia about designation of responsible green party and left call back number. Per Keith, he will also call her and inform her she should speak to JOELLE.
--- NOTE | 2019-09-21 14:07 | NUR ---
JOELLE received a call from the residents next of Kin/sister, Cassia Pringle [phone] who stated that although she would also like to be informed of the residents progress, she would prefer that the residents uncle, Keith Klein [phone] and aunt, Millie Mustafa [phone] act as the responsible republican, making the medical decisions on the patients behalf. Nadja stated, sometimes I have trouble understanding the information that the doctors communicate to me and Keith always helps me understand. He is older and more qualified to make medical decisions on behalf of my brother. Charge Nurse, Henrique and Director, Maria Dolores witnessed the verbal consent given over the phone by the patients sister, Cassia Pringle. Cassia Pringle stated, I would like to give verbal consent that my uncle Keith and aunt Millie Mustafa be the responsible republican. JOELLE also contacted the patients youngest sister, Lizy Pringle [phone] to discuss responsible republican. Lizy stated, I am in agreement that my uncle, Keith Mustafa and aunt, Millie Mustafa be the responsible republican to make medical decisions on behalf of my brother. Noted. JOELLE called and informed Keith Klein [phone] that SW received verbal consent from both of pt.'s siblings in regards to Keith being the responsible republican. JOELLE will meet with Keith Mustafa on 09/22/19 8:30 am to complete intake paperwork.
--- NOTE | 2019-09-21 15:00 | NUR ---
Made a follow-up call and paged Dr. Arvind Valles. Awaiting for call back.
--- NOTE | 2019-09-21 15:03 | NUR ---
According to pharmacist Janel, resident's Zyvox has been discontinued in acute and Merrem is only for 2 days. Clarified with KANWAL Kellogg the stop date for both ATB, Zyvox and Merrem IV, she said that she will be in later on to review the chart.
--- NOTE | 2019-09-21 16:05 | NUR ---
Received a call from Dr. Arvind Valles and asked if he agree with dietary recommendation to increase GT feeding rate to 50cc/hr, Prostat 30 ml Q 12, and Neprovite 1 tab daily. MD in agreement. Dr. Valles said to DC F/C when asked if patient still need the catheter since patient is passing adequate urine output, he also gave an order to flush GT with 50 ml. 4xa day. MD ordered CBC and BMP in AM to determine if patient will need dialysis. Order noted and carried out.
[2019-09-21 16:12] VITALS: BP 154/72
[2019-09-21] MEDS ORDERED: NEPRO 1,000 ML BOTTLE GT PRN (17:13)
--- NOTE | 2019-09-21 18:18 | NUR ---
Seen by MAYRA Kellogg, reviewed orders, labs and patient's culture result. with new order to DC Zyvox and Merrem IV ATB. All orders notd and carried out.
--- NOTE | 2019-09-21 19:08 | NUR ---
Received a call from [facility], c/o GENOVEVA that insurance is rejecting the medication Epogen and asking for the diagnosis of Epogen. According to subacute nurse privacy manager the diagnosis is Anemia due to chronic renal disease. GENOVEVA from [facility] informed, she said that she will send it in the billing. Endorsed.
[2019-09-21] MEDS: PROSOURCE / PROSTAT (PYXIS) 30 ML UDC GT SCH (20:42)
[2019-09-21] MEDS: MINERAL OIL/PETROL OINT 396 GM JAR TP SCH (20:42)
[2019-09-21] MEDS: NEOMY SULF/BACITRAC ZN/POLY 15 GM TUBE TP SCH (20:42)
[2019-09-21] MEDS: Z GUARD REMEDY 4 OZ OINT TP SCH (20:42)
[2019-09-21 20:51] VITALS: BP 118/78
[2019-09-21] MEDS: SENNOSIDES 8.6 MG TABLET GT SCH (22:17)
[2019-09-21] MEDS: DOXAZOSIN MESYLATE (4 MG) 4 MG TABLET GT SCH (22:17)
[2019-09-22] VITALS: BP 114/78
--- NOTE | 2019-09-22 00:39 | NUR ---
Pt rec'd trached on [facility] vent on AC mode. No resp distress or sob noted. Trach is patent and secured. Sx'd for thick small amt of pale yellow secretions. Alarms are set and audible. Vent plugged into red outlet. Ambu bag bedside. Will continue to monitor. Addendum: 09/22/19 at 0039 by CRISTIANE NAVA RT Amended: Links added.
[2019-09-22] MEDS: IPRATROPIUM NEB FS 0.5 MG/2.5 ML AMPUL.NEB NEB SCH ×4 (01:59→20:01)
[2019-09-22] MEDS: ALBUTEROL FS 2.5 MG/0.5 ML VIAL.NEB NEB SCH ×4 (01:59→20:01)
[2019-09-22 04:00] VITALS: BP 149/52
[2019-09-22] MEDS: METOCLOPRAMIDE HCL 10 MG TABLET GT SCH ×3 (05:15→20:41)
[2019-09-22] MEDS: hydrALAZINE HCL 25 MG TABLET GT SCH ×3 (05:15→20:41)
[2019-09-22] MEDS: CLONIDINE HCL 0.1 MG TABLET GT SCH ×3 (05:15→20:41)
[2019-09-22] MEDS: LABETALOL HCL (100MG) 100 MG TABLET GT SCH ×3 (05:16→20:42)
[2019-09-22 06:48] LABS: BASOPHILS # (AUTO) 0.1 /CMM (0.0-0.2); EOSINOPHILS % (AUTO) 3.5 % (0.0-6.0); HEMATOCRIT 24 % (39-51); MEAN CORPUSCULAR HGB CONC 33 g/dl (31.0-36.0); MEAN CORPUSCULAR VOLUME 91 fL (80-96); MONOCYTES % (AUTO) 10.6 % (2.0-12.0); NEUTROPHILS # (AUTO) 7.1 /CMM (1.8-8.9); NEUTROPHILS % (AUTO) 74.9 % (43.0-81.0); PLATELET COUNT (AUTO) 344 /CMM (150-450); RED BLOOD CELL COUNT(AUTO) 2.67 MIL/uL (4.5-6.0); WHITE BLOOD COUNT (AUTO) 9.5 K/uL (4.3-11.0)
[2019-09-22 07:03] LABS: CALCIUM, SERUM 9.3 mg/dL (8.5-10.1); CREATININE 2.4 mg/dL (0.6-1.3); POTASSIUM 3.9 mmol/L (3.5-5.1)
--- NOTE | 2019-09-22 08:10 | NUR ---
Lab reported pt's blood sugar 494. Rechecked blood sugar via fingerstick and it was 443. Called Dr Treadwell but no answer. Notified to MAYRA Hoang. Informed her that pt was on Insulin Glargine 17 units SC q 12 hours and Insulin Lispro per sliding scale. MAYRA Hoang said she knows the pt from the previous facility and she ordered to resume the same insulin orders. She said she will see pt today and maybe adjust the insulin. Addendum: 09/22/19 at 1551 by TIMOTEO VERDIN RN Pt awake, alert, oriented x 4, mouthing words to communicate. No signs of hyperglycemia.
[2019-09-22] MEDS: Z GUARD REMEDY 4 OZ OINT TP SCH ×2 (09:00→20:42)
[2019-09-22] MEDS: SITAGLIPTIN PHOSPHATE 50 MG TABLET GT SCH (09:00)
[2019-09-22] MEDS: ISOSORBIDE DINITRATE (20MG) 20 MG TABLET GT SCH ×3 (09:00→17:29)
[2019-09-22] MEDS: LEVETIRACETAM SOL (5 ML) 100 MG/ML UDC GT SCH ×2 (09:00→20:41)
[2019-09-22] MEDS: FERROUS SULFATE UDC 300 MG/5 ML UDC GT SCH (09:00)
[2019-09-22] MEDS ORDERED: BASAGLAR SQ SCH (09:00)
[2019-09-22] MEDS: MINERAL OIL/PETROL OINT 396 GM JAR TP SCH ×2 (09:00→20:42)
[2019-09-22] MEDS: SPIRONOLACTONE 50 MG TABLET GT SCH (09:00)
[2019-09-22] MEDS: DOCUSATE SODIUM LIQ 100 MG/10 ML UDC GT SCH ×2 (09:00→20:41)
[2019-09-22] MEDS: NEOMY SULF/BACITRAC ZN/POLY 15 GM TUBE TP SCH ×2 (09:00→20:42)
[2019-09-22] MEDS ORDERED: INSULIN GLARGINE SQ SCH (09:00)
[2019-09-22] MEDS: LACTOBACILLUS RHAMNOSUS GG 1 EACH CAP.SPRINK GT SCH ×2 (09:00→17:29)
[2019-09-22] MEDS: AMLODIPINE BESYLATE 10 MG TABLET GT SCH (09:01)
[2019-09-22] MEDS: MINOXIDIL (2.5MG) 2.5 MG TABLET GT SCH (09:01)
[2019-09-22] MEDS: PROSOURCE / PROSTAT (PYXIS) 30 ML UDC GT SCH ×2 (09:01→20:41)
[2019-09-22] MEDS: FAMOTIDINE (20 MG) 20 MG TABLET GT SCH (09:01)
[2019-09-22] MEDS: CHLORHEXIDINE GLUCONATE 15 ML UDC MM SCH (09:02)
[2019-09-22] MEDS: VIT B CMPLX 3/FA/VIT C/BIOTIN 1 TAB TABLET GT SCH (09:04)
[2019-09-22] MEDS: INSULIN ASPART/LISPRO 100 UNIT/ML CARTRIDGE SQ PRN ×3 (09:05→17:35)
--- NOTE | 2019-09-22 09:11 | NUR ---
WOUND CARE CONSULT: PT PRESENTS WITH LARGE CRUSTED AREA TO LEFT FOREARM/WRIST AREA AND TINY BUMPS TO LEFT ARM PROXIMAL TO CRUSTED AREA, PRESENT ON ADMISSION. DEFER TO MD FOR SKIN CONDITION TO ARM. PT ALSO NOTED TO HAVE SOME DISCOLORATION TO RT THIGH AREA, PRESENT ON ADMISSION. PT PREVIOUSLY HAD CANNON CATH. PT NOW INCONTINENT OF LARGE AMOUNT OF URINE AND IS USING DIAPERS. SKIN TO BE KEPT CLEAN AND DRY. DISCUSSED SKIN PROTECTION WITH NURSING STAFF. Z GUARD IN USE. PT ON FIRST STEP [facility] LOW AIRLOSS MATTRESS. WILL SEE PRN. MD IN AGREEMENT WITH PLAN OF CARE.
--- NOTE | 2019-09-22 09:15 | NUR ---
Seen by OT. Received order for RNA to perform PROM exercises on BUE daily 5x/wk as tolerated.
[2019-09-22] MEDS ORDERED: EPOETIN ALFA (10,000 UNIT) 10,000 UNIT/ML VIAL SQ SCH (10:00)
--- NOTE | 2019-09-22 10:50 | NUR ---
Notified MICROBIOLOGICAL LAB TECHNICIAN Lidia Hoang of blood sugar 432. She ordered to give an extra 10 units of Humalog SC x 1. Also notified her that Basaglar is currently unavailable but will be [facility]. She said to give the available regular insulin for now.
[2019-09-22 10:55] VITALS: BP 160/69
--- NOTE | 2019-09-22 11:12 | NUR ---
Intake Paperwork: Patient Admitted to [facility] on Friday, September 20, 2019 at 5:50 pm. Whipped Topping Mixer met with the resident's responsible democrat/uncle, Keith Klein [phone] on 09/22/19 at 9 am to complete initial admission paperwork (Patient Right's Acknowledgement, Documentation of Preferred Intensity of Care, Conditions of Admission, [facility] Agreement, and Voluntary Prior Express Consent form). SW provided patient with a copy of the Bill of Rights, patient information guide and [facility] resident and family guidelines. Per Keith, he did not make a choice on the Preferred Intensity of Care and stated he is aware that by default that means the patient will be Full Code (CPR with maximum treatment). SW also completed the initial psychosocial assessment with Keith as the resident is only able to communicate minimally via communication board, which could emit important information from being collected. Admission paperwork was placed into the resident's chart. Whipped Topping Mixer educated Keith on advanced health care directive and conservatorship. SW recommended and encouraged Keith that he and his Millie Klein file for conservatorship which would allow them to legally become the primary and secondary decision makers on the patients behalf. Keith expressed understanding and stated he was interested. JOELLE provided Keith with informational packets about conservatorship, Advanced Healthcare Directive as well as the number for [facility] [employer] [address] [facility] [address] who may be able to assist with filing for conservatorship. Keith Siddiquipas will follow up.
--- NOTE | 2019-09-22 11:15 | NUR ---
Seen by Dr Valles. Notified him that pt's blood sugar was 494 and 443 this morning, ordered was received to resume insulin orders. Asked him if pt still needs to be on dialysis. He said he will review the labs. Showed him the plaque-like growth on pt's left arm. He said to have Dr Lloyd/MORGAN Mccarthy see it. Notified Dr Gabino Le. Addendum: 09/22/19 at 1142 by TIMOTEO VERDIN RN Pt denies pain, itchiness, or discomfort on the left arm.
[2019-09-22] MEDS ORDERED: INSULIN LISPRO/ASPART 100 UNIT/ML CARTRIDGE SQ ONE (12:00)
--- NOTE | 2019-09-22 12:23 | NUR ---
Family Invitation to Plan of Care Conference: SW invited the patient's responsible green party, Keith Siddiquipas [phone] to attend the interdisciplinary plan of care conference taking place this Monday, September 23, 2019 from12:30 pm-1:30pm in the activities room. Per Keith, he will be attending the IDT meeting. Noted.
[2019-09-22] MEDS: BLOOD SUGAR DIAGNOSTIC 1 EACH STRIP IN SCH ×2 (12:48→17:29)
--- NOTE | 2019-09-22 12:53 | NUR ---
Notified MAYRA Hoang that blood sugar is 297.
--- NOTE | 2019-09-22 14:49 | NUR ---
Met with uncle, Keith Klein, and discussed Baseline Care Plan which he signed and copy given. Called [facility] [place] [facility] where resident was previously admitted, spoke with Demi who confirmed resident already received Flu vaccine on 09/04/19 and Pneumonia vaccine on 09/05/19.
--- NOTE | 2019-09-22 15:30 | NUR ---
Notified Dr Treadwell that Epogen and Arginine are not covered by the insurance. Dr Treadwell ordered to DC Arginine and Epogen, give Retacrit 10,000 units SC q Thursday.
--- NOTE | 2019-09-22 15:43 | NUR ---
Campus Coordinator Consultation: SW met with patient at bedside to complete SS evaluation. Patient was receptive to meeting with SW. SW explained to patient, SWs role and responsibilities. Patient nodded his head appearing to understand. Patient was responsive to name and able to track and made appropriate eye contact. Patient presents alert and lying in bed and appears well-groomed. Patient was calm and cooperative throughout assessment. The patient nodded "no" when asked about SI, HI, and Hallucinations. The patient mouthed yes when asked if his mood was happy, and communicated at times using communication board when asked about feeling sad, or angry. The resident has full range affect (smiling) that is mood congruent. SW validated and normalized patient feelings of sadness and anger due to current Dx. SW is unable to assess for speech, thought process and thought content, insight/judgement and memory as patient is non-verbal. Per EMR, the pt. is non-ambulatory and has limitations with mobility. Per the patients responsible alliance party, Keith, stated that the resident has less mobility on the right side of his body due to recent Stroke. The resident can communicate by mouthing yes or no, using hand gestures (ie. thumbs up) and using communication board.
[2019-09-22] MEDS ORDERED: TUBERCULIN,PURIF.PROT.DERIV. 5 TU/0.1 ML VIAL ID SCH (17:00)
--- NOTE | 2019-09-22 20:02 | NUR ---
RT NOTE PATIENT RECEIVED TRACH'D IN STABLE CONDITION. PATIENT TOLERATING CURRENT ORDERED VENT SETTINGS. NO SIGNS OF RESPIRATORY DISTRESS NOTED. TRACH IS PATENT AND SECURE. ALARMS ARE SET AND AUDIBLE. VENT IS PLUGGED INTO RED OUTLET. EMERGENCY EQUIPMENT IS AT PATIENT BEDSIDE. WILL CONTINUE TO MONITOR. Addendum: 09/22/19 at 2050 by ABBY COYLE RT Amended: Links added.
[2019-09-22 20:48] VITALS: BP 118/58
[2019-09-22] MEDS: INSULIN GLARGINE SQ SCH (21:50)
[2019-09-22] MEDS: BASAGLAR SQ SCH (21:50)
[2019-09-22] MEDS: SENNOSIDES 8.6 MG TABLET GT SCH (21:51)
[2019-09-22] MEDS: DOXAZOSIN MESYLATE (4 MG) 4 MG TABLET GT SCH (21:58)
[2019-09-23] MEDS: BLOOD SUGAR DIAGNOSTIC 1 EACH STRIP IN SCH ×4 (00:31→18:09)
[2019-09-23] MEDS: INSULIN ASPART/LISPRO 100 UNIT/ML CARTRIDGE SQ PRN ×4 (00:34→18:11)
[2019-09-23] MEDS: ALBUTEROL FS 2.5 MG/0.5 ML VIAL.NEB NEB SCH ×4 (02:02→19:37)
[2019-09-23] MEDS: IPRATROPIUM NEB FS 0.5 MG/2.5 ML AMPUL.NEB NEB SCH ×4 (02:02→19:37)
[2019-09-23] MEDS: CLONIDINE HCL 0.1 MG TABLET GT SCH ×3 (05:52→21:00)
[2019-09-23] MEDS: METOCLOPRAMIDE HCL 10 MG TABLET GT SCH ×3 (05:52→21:00)
[2019-09-23] MEDS: hydrALAZINE HCL 25 MG TABLET GT SCH ×3 (05:52→21:00)
[2019-09-23] MEDS: LABETALOL HCL (100MG) 100 MG TABLET GT SCH ×3 (05:53→21:00)
[2019-09-23 07:18] LABS: BASOPHILS # (AUTO) 0.1 /CMM (0.0-0.2); BASOPHILS % (AUTO) 0.9 % (0.0-2.0); HEMATOCRIT 22 % (39-51); HEMOGLOBIN 7.6 g/dL (13.5-17.5); LYMPHOCYTES # (AUTO) 1.3 /CMM (0.8-4.8); LYMPHOCYTES % (AUTO) 14.1 % (20.0-44.0); MEAN CORPUSCULAR HGB CONC 34 g/dl (31.0-36.0); MEAN CORPUSCULAR VOLUME 91 fL (80-96); MONOCYTES % (AUTO) 11.5 % (2.0-12.0); NEUTROPHILS # (AUTO) 6.2 /CMM (1.8-8.9); NEUTROPHILS % (AUTO) 69.5 % (43.0-81.0); PLATELET COUNT (AUTO) 334 /CMM (150-450); RED BLOOD CELL COUNT(AUTO) 2.48 MIL/uL (4.5-6.0)
[2019-09-23 07:22] LABS: CALCIUM, SERUM 9.4 mg/dL (8.5-10.1); CREATININE 2.4 mg/dL (0.6-1.3); MAGNESIUM 2.4 mg/dL (1.8-2.4); POTASSIUM 3.2 mmol/L (3.5-5.1)
[2019-09-23 07:29] VITALS: BP 149/74
[2019-09-23] MEDS: MINERAL OIL/PETROL OINT 396 GM JAR TP SCH ×2 (09:00→21:00)
[2019-09-23] MEDS: Z GUARD REMEDY 4 OZ OINT TP SCH ×2 (09:00→21:00)
[2019-09-23] MEDS: INSULIN GLARGINE SQ SCH ×2 (09:00→21:00)
[2019-09-23] MEDS: LEVETIRACETAM SOL (5 ML) 100 MG/ML UDC GT SCH ×2 (09:00→21:00)
[2019-09-23] MEDS: ACETAMINOPHEN 650 MG/20 ML UDC- SA PATIENTS-PAIN ONLY GT SCH (09:00)
[2019-09-23] MEDS: DOCUSATE SODIUM LIQ 100 MG/10 ML UDC GT SCH ×2 (09:00→21:00)
[2019-09-23] MEDS: SITAGLIPTIN PHOSPHATE 50 MG TABLET GT SCH (09:00)
[2019-09-23] MEDS: AMLODIPINE BESYLATE 10 MG TABLET GT SCH (09:00)
[2019-09-23] MEDS: ISOSORBIDE DINITRATE (20MG) 20 MG TABLET GT SCH ×3 (09:00→17:00)
[2019-09-23] MEDS: BASAGLAR SQ SCH ×2 (09:00→21:00)
[2019-09-23] MEDS: FAMOTIDINE (20 MG) 20 MG TABLET GT SCH (09:00)
[2019-09-23] MEDS: PROSOURCE / PROSTAT (PYXIS) 30 ML UDC GT SCH ×2 (09:00→21:00)
[2019-09-23] MEDS: CHLORHEXIDINE GLUCONATE 15 ML UDC MM SCH (09:00)
[2019-09-23] MEDS: VIT B CMPLX 3/FA/VIT C/BIOTIN 1 TAB TABLET GT SCH (09:00)
[2019-09-23] MEDS: MINOXIDIL (2.5MG) 2.5 MG TABLET GT SCH (09:00)
[2019-09-23] MEDS: LACTOBACILLUS RHAMNOSUS GG 1 EACH CAP.SPRINK GT SCH ×2 (09:00→17:00)
[2019-09-23] MEDS: SPIRONOLACTONE 50 MG TABLET GT SCH (09:00)
[2019-09-23] MEDS: FERROUS SULFATE UDC 300 MG/5 ML UDC GT SCH (09:00)
[2019-09-23] MEDS: NEOMY SULF/BACITRAC ZN/POLY 15 GM TUBE TP SCH ×2 (09:00→21:00)
--- NOTE | 2019-09-23 09:16 | NUR ---
Noted an order from Dr. Valles to give KCL 40meq x1 due to K level 3.2. Order carried out.
[2019-09-23] MEDS ORDERED: POTASSIUM CHLORIDE 20 MEQ TAB.PRT.SR PO ONE (09:30)
[2019-09-23 09:42] LABS: IRON, SERUM 30 ug/dl (50-175); TOTAL IRON BINDING CAPACITY 190 ug/dl (250-450)
--- NOTE | 2019-09-23 14:05 | NUR ---
During IDT meeting, the family is asking whether the patient can eat since he was eating at the previous facility. Dr. Braun said to the family that he plans to wean the patient next week and after that he will order swallow evaluation. According to Dr. Braun, he entered the weaning orders in [facility].
--- NOTE | 2019-09-23 16:00 | NUR ---
Place a call to Dr. Valles's office and requested to speak with MD to clarify hypertensive medication per pharmacy recommendation. Patient is on multiple hypertensive medication, despite on multiple BP meds, blood pressure reading still on the higher range. Awaiting for MD to call back. According to pharmacist that if the doctor does not call back, they will also follow-up in AM.
--- NOTE | 2019-09-23 16:08 | NUR ---
INTERDISCIPLINARY PLAN OF CARE CONFERENCE took place today. The patients responsible republican/ Keith Klein and Millie Klein [phone] were in attendance. The IDT answered all of familys questions. Charge nurse discussed speech therapy, High blood sugar management, and PT will educate family on exercises they can implement with pt. Dr. Braun and Interdisciplinary team discussed the plan of care in detail. Current orders as well as treatments and medications were reviewed. Please see other disciplines IDT notes for further details.
--- NOTE | 2019-09-23 16:18 | NUR ---
Per Directors request JOELLE informed family that we would like medical records: h&p and discharge summaries from [facility] and [facility] to better provide care for the resident. The patients responsible alliance party, Keith Klein was agreeable to plan and signed Authorization for disclosure of health information. JOELLE FAXED Authorization for Disclosure of Leonard Information and face sheet to [facility] TEL: [phone] FAX:[phone] ATTN: Arianna. JOELLE received completed fax receipt. JOELLE received requested medical records.Medical records placed in pt.'s chart. JOELLE FAXED Authorization for Disclosure of Leonard Information to [facility] TEL: [phone] FAX:[phone] ATTN: Dianna. JOELLE received completed fax receipt. JOELLE received requested medical records. Medical records placed in pt.'s chart.
--- NOTE | 2019-09-23 16:45 | NUR ---
RT NOTE: RECEIVED PT ON ORDERED NOTED VENT SETTINGS. NO RESPIRATORY DISTRESS NOTED. TRACH CHECKED SECURE AND PATENT. SXD AND LAVAGED PT Q ROUND AND NEEDED. TXS GIVEN ORDERED WITH NO ADVERSE REACTIONS NOTED. TRACH CARE DONE. SPARE TRACH AND AMBU BAG @ BEDSIDE. VENT PLUGGED INTO RED OUTLET.
--- NOTE | 2019-09-23 17:10 | NUR ---
Late entry for 09/22/19 Per [facility] notice of noncoverage that Epogen is not covered due to resident has valid 3rd libertarian/medicaid coverage but it is restricted to another pharmacy and to have the restriction updated. Referred to Daniel in admitting and stated the insurance cannot remove the restriction as the patient has assigned specialty pharmacy. Called [facility] [phone] at 1250pm, spoke with Minnie Delatorre who stated Epogen is not covered and alternative is Recatrit. Informed her patient is now at [facility]. She said to fax current labs, 's notes and order to [phone]. Communicated with Charge Nurse. Faxed requested informations to [facility] with receipt of fax confirmation received at 1819 Addendum: 09/23/19 at 1728 by ANDRÉS TREADWELL ADM 09/23/19 1520 Called [facility] spoke with Vinnie to follow up delivery of Recatrit, stated expected delivery on Thursday between 7:30am to 3pm, communicated to Charge Nurse
--- NOTE | 2019-09-23 17:30 | NUR ---
HD dialysis access in the R femoral removed by dialysis nurse as ordered by Dr. Valles. Monitor for bleeding, none noted at this time.
[2019-09-23] MEDS: NEPRO 1,000 ML BOTTLE GT PRN (18:09)
[2019-09-23 20:00] VITALS: BP 116/68
[2019-09-23 20:24] VITALS: BP 116/68
[2019-09-23] MEDS: SENNOSIDES 8.6 MG TABLET GT SCH (22:23)
[2019-09-23] MEDS: DOXAZOSIN MESYLATE (4 MG) 4 MG TABLET GT SCH (22:23)
[2019-09-24] MEDS: BLOOD SUGAR DIAGNOSTIC 1 EACH STRIP IN SCH ×5 (00:53→23:17)
[2019-09-24] MEDS: INSULIN ASPART/LISPRO 100 UNIT/ML CARTRIDGE SQ PRN ×4 (00:55→23:18)
--- NOTE | 2019-09-24 00:58 | NUR ---
RN NOTES: BLOOD SUGAR CHECK-121, NO INSULIN GIVEN PER SCALE, WILL CONTINUE TO MONITOR FOR SIGN OF HYPER AND HYPOGLYCEMIA.
[2019-09-24] MEDS: ALBUTEROL FS 2.5 MG/0.5 ML VIAL.NEB NEB SCH ×4 (01:46→19:34)
[2019-09-24] MEDS: IPRATROPIUM NEB FS 0.5 MG/2.5 ML AMPUL.NEB NEB SCH ×4 (01:46→19:34)
--- NOTE | 2019-09-24 05:20 | NUR ---
RT Patient remained on continuous vent support on noted vent settings.Patient stable throughout the shift. Trach is patent and secured.Will continue to monitor. Addendum: 09/24/19 at 0520 by ABDULAZIZ FOFANA RT Amended: Links added.
[2019-09-24] MEDS: hydrALAZINE HCL 25 MG TABLET GT SCH ×3 (05:31→20:37)
[2019-09-24] MEDS: LABETALOL HCL (100MG) 100 MG TABLET GT SCH ×3 (05:32→20:38)
[2019-09-24] MEDS: CLONIDINE HCL 0.1 MG TABLET GT SCH ×3 (05:32→20:38)
[2019-09-24] MEDS: METOCLOPRAMIDE HCL 10 MG TABLET GT SCH ×3 (05:32→20:38)
--- NOTE | 2019-09-24 06:17 | NUR ---
RN NOTES: BLOOD SUGAR-137, NO INSULIN GIVEN PER SCALE, NO PAIN OR DISCOMFORT, DUE MEDICATION GIVEN VIA PEG, TOLERATED.LATEST MR=[id number].
[2019-09-24 07:41] VITALS: BP 171/74
[2019-09-24] MEDS: SPIRONOLACTONE 50 MG TABLET GT SCH (08:16)
[2019-09-24] MEDS: VIT B CMPLX 3/FA/VIT C/BIOTIN 1 TAB TABLET GT SCH (08:16)
[2019-09-24] MEDS: FAMOTIDINE (20 MG) 20 MG TABLET GT SCH (08:16)
[2019-09-24] MEDS: LACTOBACILLUS RHAMNOSUS GG 1 EACH CAP.SPRINK GT SCH ×2 (08:16→16:54)
[2019-09-24] MEDS: ISOSORBIDE DINITRATE (20MG) 20 MG TABLET GT SCH ×3 (08:16→16:55)
[2019-09-24] MEDS: AMLODIPINE BESYLATE 10 MG TABLET GT SCH (08:16)
[2019-09-24] MEDS: SITAGLIPTIN PHOSPHATE 50 MG TABLET GT SCH (08:16)
[2019-09-24] MEDS: DOCUSATE SODIUM LIQ 100 MG/10 ML UDC GT SCH ×2 (08:16→20:38)
[2019-09-24] MEDS: PROSOURCE / PROSTAT (PYXIS) 30 ML UDC GT SCH ×2 (08:16→20:38)
[2019-09-24] MEDS: LEVETIRACETAM SOL (5 ML) 100 MG/ML UDC GT SCH ×2 (08:16→20:38)
[2019-09-24] MEDS: FERROUS SULFATE UDC 300 MG/5 ML UDC GT SCH (08:16)
[2019-09-24] MEDS: MINOXIDIL (2.5MG) 2.5 MG TABLET GT SCH (08:16)
[2019-09-24] MEDS: ACETAMINOPHEN 650 MG/20 ML UDC- SA PATIENTS-PAIN ONLY GT SCH (08:17)
[2019-09-24] MEDS: CHLORHEXIDINE GLUCONATE 15 ML UDC MM SCH (08:17)
[2019-09-24] MEDS: Z GUARD REMEDY 4 OZ OINT TP SCH ×2 (09:00→20:39)
[2019-09-24] MEDS: MINERAL OIL/PETROL OINT 396 GM JAR TP SCH ×2 (09:00→20:39)
[2019-09-24] MEDS: INSULIN GLARGINE SQ SCH ×2 (09:00→20:39)
[2019-09-24] MEDS: BASAGLAR SQ SCH ×2 (09:00→20:39)
[2019-09-24] MEDS: NEOMY SULF/BACITRAC ZN/POLY 15 GM TUBE TP SCH ×2 (09:00→20:39)
[2019-09-24] MEDS: NEPRO 1,000 ML BOTTLE GT PRN (16:53)
[2019-09-24 19:47] VITALS: BP 154/68
[2019-09-24] MEDS: HYDROGEN PEROXIDE 480 ML BOTTLE TP SCH (20:39)
[2019-09-24] MEDS: SENNOSIDES 8.6 MG TABLET GT SCH (22:03)
[2019-09-24] MEDS: DOXAZOSIN MESYLATE (4 MG) 4 MG TABLET GT SCH (22:03)
[2019-09-25] MEDS: ALBUTEROL FS 2.5 MG/0.5 ML VIAL.NEB NEB SCH ×4 (01:17→19:43)
[2019-09-25] MEDS: IPRATROPIUM NEB FS 0.5 MG/2.5 ML AMPUL.NEB NEB SCH ×4 (01:17→19:43)
--- NOTE | 2019-09-25 04:01 | NUR ---
Pt receive stable on MV, settings are AC 14,550,+5 at 30% FiO2. Alarms are on and audible, spare trach and ambu bag is at bedside. Vent is plug to red outlet will continue to monitor. Addendum: 09/25/19 at 0403 by GILBERT ROGERS RT Amended: Links added.
[2019-09-25] MEDS: CLONIDINE HCL 0.1 MG TABLET GT SCH ×3 (05:00→20:44)
[2019-09-25] MEDS: hydrALAZINE HCL 25 MG TABLET GT SCH ×3 (05:00→20:43)
[2019-09-25] MEDS: METOCLOPRAMIDE HCL 10 MG TABLET GT SCH ×3 (05:00→20:47)
[2019-09-25] MEDS: LABETALOL HCL (100MG) 100 MG TABLET GT SCH ×3 (05:00→20:48)
[2019-09-25] MEDS: BLOOD SUGAR DIAGNOSTIC 1 EACH STRIP IN SCH ×4 (06:27→23:57)
[2019-09-25] MEDS: INSULIN ASPART/LISPRO 100 UNIT/ML CARTRIDGE SQ PRN ×4 (06:28→23:58)
[2019-09-25 07:35] VITALS: BP 155/81
[2019-09-25] MEDS: HYDROGEN PEROXIDE 480 ML BOTTLE TP SCH ×2 (09:00→21:37)
[2019-09-25] MEDS: Z GUARD REMEDY 4 OZ OINT TP SCH ×2 (09:00→20:49)
[2019-09-25] MEDS: NEOMY SULF/BACITRAC ZN/POLY 15 GM TUBE TP SCH ×2 (09:00→20:48)
[2019-09-25] MEDS: SPIRONOLACTONE 50 MG TABLET GT SCH (09:26)
[2019-09-25] MEDS: DOCUSATE SODIUM LIQ 100 MG/10 ML UDC GT SCH ×2 (09:26→20:45)
[2019-09-25] MEDS: FAMOTIDINE (20 MG) 20 MG TABLET GT SCH (09:26)
[2019-09-25] MEDS: FERROUS SULFATE UDC 300 MG/5 ML UDC GT SCH (09:26)
[2019-09-25] MEDS: VIT B CMPLX 3/FA/VIT C/BIOTIN 1 TAB TABLET GT SCH (09:26)
[2019-09-25] MEDS: PROSOURCE / PROSTAT (PYXIS) 30 ML UDC GT SCH ×2 (09:26→20:46)
[2019-09-25] MEDS: SITAGLIPTIN PHOSPHATE 50 MG TABLET GT SCH (09:26)
[2019-09-25] MEDS: AMLODIPINE BESYLATE 10 MG TABLET GT SCH (09:26)
[2019-09-25] MEDS: LEVETIRACETAM SOL (5 ML) 100 MG/ML UDC GT SCH ×2 (09:26→20:46)
[2019-09-25] MEDS: ISOSORBIDE DINITRATE (20MG) 20 MG TABLET GT SCH ×3 (09:26→17:19)
[2019-09-25] MEDS: MINOXIDIL (2.5MG) 2.5 MG TABLET GT SCH (09:26)
[2019-09-25] MEDS: CHLORHEXIDINE GLUCONATE 15 ML UDC MM SCH (09:27)
[2019-09-25] MEDS: ACETAMINOPHEN 650 MG/20 ML UDC- SA PATIENTS-PAIN ONLY GT SCH (09:27)
[2019-09-25] MEDS: BASAGLAR SQ SCH ×2 (09:29→21:22)
[2019-09-25] MEDS: INSULIN GLARGINE SQ SCH ×2 (09:29→21:22)
[2019-09-25] MEDS: MINERAL OIL/PETROL OINT 396 GM JAR TP SCH ×2 (09:30→20:48)
[2019-09-25] MEDS: LACTOBACILLUS RHAMNOSUS GG 1 EACH CAP.SPRINK GT SCH ×2 (09:36→17:32)
[2019-09-25] MEDS: NEPRO 1,000 ML BOTTLE GT PRN (17:23)
[2019-09-25 20:32] VITALS: BP 154/77
[2019-09-25] MEDS: DOXAZOSIN MESYLATE (4 MG) 4 MG TABLET GT SCH (21:22)
[2019-09-25] MEDS: SENNOSIDES 8.6 MG TABLET GT SCH (21:22)
[2019-09-26] MEDS: IPRATROPIUM NEB FS 0.5 MG/2.5 ML AMPUL.NEB NEB SCH ×4 (01:34→20:33)
[2019-09-26] MEDS: ALBUTEROL FS 2.5 MG/0.5 ML VIAL.NEB NEB SCH ×4 (01:34→20:33)
--- NOTE | 2019-09-26 05:29 | NUR ---
RT Patient was received on continuous vent support on noted vent settings . Trach is patent and secured. Patient stable throughout the shift. Will continue to monitor. Addendum: 09/26/19 at 0530 by ABDULAZIZ FOFANA RT Amended: Links added.
[2019-09-26] MEDS: CLONIDINE HCL 0.1 MG TABLET GT SCH ×3 (05:50→21:05)
[2019-09-26] MEDS: hydrALAZINE HCL 25 MG TABLET GT SCH ×3 (05:50→21:04)
[2019-09-26] MEDS: BLOOD SUGAR DIAGNOSTIC 1 EACH STRIP IN SCH ×3 (05:51→18:31)
[2019-09-26] MEDS: LABETALOL HCL (100MG) 100 MG TABLET GT SCH ×3 (05:51→21:07)
[2019-09-26] MEDS: METOCLOPRAMIDE HCL 10 MG TABLET GT SCH ×3 (05:51→21:07)
[2019-09-26] MEDS: INSULIN ASPART/LISPRO 100 UNIT/ML CARTRIDGE SQ PRN ×3 (05:52→18:30)
[2019-09-26 07:47] VITALS: BP 170/83
[2019-09-26] MEDS: Z GUARD REMEDY 4 OZ OINT TP SCH ×2 (09:00→21:08)
[2019-09-26] MEDS: MINERAL OIL/PETROL OINT 396 GM JAR TP SCH ×2 (09:00→21:08)
[2019-09-26] MEDS: NEOMY SULF/BACITRAC ZN/POLY 15 GM TUBE TP SCH ×2 (09:00→21:08)
[2019-09-26] MEDS: HYDROGEN PEROXIDE 480 ML BOTTLE TP SCH ×2 (09:00→20:33)
[2019-09-26] MEDS: SPIRONOLACTONE 50 MG TABLET GT SCH (09:00)
[2019-09-26] MEDS: DOCUSATE SODIUM LIQ 100 MG/10 ML UDC GT SCH ×2 (09:02→21:05)
[2019-09-26] MEDS: FERROUS SULFATE UDC 300 MG/5 ML UDC GT SCH (09:02)
[2019-09-26] MEDS: ISOSORBIDE DINITRATE (20MG) 20 MG TABLET GT SCH ×3 (09:03→17:00)
[2019-09-26] MEDS: LEVETIRACETAM SOL (5 ML) 100 MG/ML UDC GT SCH ×2 (09:03→21:06)
[2019-09-26] MEDS: SITAGLIPTIN PHOSPHATE 50 MG TABLET GT SCH (09:03)
[2019-09-26] MEDS: VIT B CMPLX 3/FA/VIT C/BIOTIN 1 TAB TABLET GT SCH (09:05)
[2019-09-26] MEDS: MINOXIDIL (2.5MG) 2.5 MG TABLET GT SCH (09:05)
[2019-09-26] MEDS: AMLODIPINE BESYLATE 10 MG TABLET GT SCH (09:06)
[2019-09-26] MEDS: PROSOURCE / PROSTAT (PYXIS) 30 ML UDC GT SCH ×2 (09:06→21:06)
[2019-09-26] MEDS: FAMOTIDINE (20 MG) 20 MG TABLET GT SCH (09:06)
[2019-09-26] MEDS: CHLORHEXIDINE GLUCONATE 15 ML UDC MM SCH (09:07)
[2019-09-26] MEDS: ACETAMINOPHEN 650 MG/20 ML UDC- SA PATIENTS-PAIN ONLY GT SCH (09:07)
[2019-09-26] MEDS: BASAGLAR SQ SCH ×2 (09:10→21:19)
[2019-09-26] MEDS: INSULIN GLARGINE SQ SCH ×2 (09:10→21:19)
[2019-09-26] MEDS: LACTOBACILLUS RHAMNOSUS GG 1 EACH CAP.SPRINK GT SCH ×2 (09:14→17:00)
[2019-09-26 10:33] LABS: ABG BASE EXCESS 2.9 mmol/L; ABG PCO2 37.4 mmHg (35.0-45.0); ABG PH 7.468 (7.350-7.450); ABG PO2 139.4 mmHg (75.0-100.0); AaDO2 30.6 mmHg; PEEP,BG 5 cm H2O; SITE, ABG Left Radial; VENT MODE, BG SIMV 4 +5 30% PSV 15
--- NOTE | 2019-09-26 11:29 | NUR ---
Pt was placed on SIMV 4 PSV 15 FiO2 30% PEEP +5. Relayed ABG result to Dr Braun. He said to keep pt on SIMV for as long as pt is comfortable.
--- NOTE | 2019-09-26 14:44 | NUR ---
RT NOTE PT REMAINS MECHANICALLY VENTILATED VIA CUFFED TRACHEOSTOMY TUBE. CUFF INFLATED. TRACH TUBE MIDLINE AND SECURE. VENTILATOR SETTINGS PRESCRIBED. ALARMS SET PER PROTOCOL AND AUDIBLE. VENT PLUGGED IN TO RED OUTLET. AMBU BAG AT BED SIDE. NO DISTRESS NOTED. Addendum: 09/26/19 at 1444 by HORACE FOFANA RT Amended: Links added.
[2019-09-26] MEDS: NEPRO 1,000 ML BOTTLE GT PRN (16:03)
[2019-09-26 20:28] VITALS: BP 124/67
[2019-09-26] MEDS: DOXAZOSIN MESYLATE (4 MG) 4 MG TABLET GT SCH (21:09)
[2019-09-26] MEDS: SENNOSIDES 8.6 MG TABLET GT SCH (21:09)
[2019-09-27] MEDS: BLOOD SUGAR DIAGNOSTIC 1 EACH STRIP IN SCH ×4 (00:13→17:47)
[2019-09-27] MEDS: INSULIN ASPART/LISPRO 100 UNIT/ML CARTRIDGE SQ PRN ×4 (00:15→17:49)
[2019-09-27] MEDS: IPRATROPIUM NEB FS 0.5 MG/2.5 ML AMPUL.NEB NEB SCH ×4 (02:04→19:54)
[2019-09-27] MEDS: ALBUTEROL FS 2.5 MG/0.5 ML VIAL.NEB NEB SCH ×4 (02:04→19:54)
--- NOTE | 2019-09-27 03:49 | NUR ---
RT NOTE Pt rec'd trached on [facility] vent on SIMV mode. No resp distress or sob noted. Trach is patent and secured. Sx'd for thick small amt of pale yellow secretions. Vent plugged into red outlet. Alarms are set and audible. Ambu bag bedside. Will continue to monitor. Addendum: 09/27/19 at 0350 by CRISTIANE NAVA RT Amended: Links added.
[2019-09-27] MEDS: hydrALAZINE HCL 25 MG TABLET GT SCH ×3 (05:26→21:00)
[2019-09-27] MEDS: METOCLOPRAMIDE HCL 10 MG TABLET GT SCH ×3 (05:26→21:03)
[2019-09-27] MEDS: CLONIDINE HCL 0.1 MG TABLET GT SCH ×3 (05:26→21:00)
[2019-09-27] MEDS: LABETALOL HCL (100MG) 100 MG TABLET GT SCH ×3 (05:28→21:03)
[2019-09-27 08:18] VITALS: BP 152/67
[2019-09-27] MEDS: SPIRONOLACTONE 50 MG TABLET GT SCH (09:00)
[2019-09-27] MEDS: MINOXIDIL (2.5MG) 2.5 MG TABLET GT SCH (09:00)
[2019-09-27] MEDS: ISOSORBIDE DINITRATE (20MG) 20 MG TABLET GT SCH ×3 (09:00→17:47)
[2019-09-27] MEDS: SITAGLIPTIN PHOSPHATE 50 MG TABLET GT SCH (09:00)
[2019-09-27] MEDS: BASAGLAR SQ SCH ×2 (09:00→21:29)
[2019-09-27] MEDS: DOCUSATE SODIUM LIQ 100 MG/10 ML UDC GT SCH ×2 (09:00→21:01)
[2019-09-27] MEDS: INSULIN GLARGINE SQ SCH ×2 (09:00→21:29)
[2019-09-27] MEDS: LEVETIRACETAM SOL (5 ML) 100 MG/ML UDC GT SCH ×2 (09:00→21:02)
[2019-09-27] MEDS: FERROUS SULFATE UDC 300 MG/5 ML UDC GT SCH (09:00)
[2019-09-27] MEDS: VIT B CMPLX 3/FA/VIT C/BIOTIN 1 TAB TABLET GT SCH (09:00)
[2019-09-27] MEDS: ACETAMINOPHEN 650 MG/20 ML UDC- SA PATIENTS-PAIN ONLY GT SCH (09:00)
[2019-09-27] MEDS: LACTOBACILLUS RHAMNOSUS GG 1 EACH CAP.SPRINK GT SCH ×2 (09:00→17:47)
[2019-09-27] MEDS: FAMOTIDINE (20 MG) 20 MG TABLET GT SCH (09:00)
[2019-09-27] MEDS: AMLODIPINE BESYLATE 10 MG TABLET GT SCH (09:00)
[2019-09-27] MEDS: PROSOURCE / PROSTAT (PYXIS) 30 ML UDC GT SCH ×2 (09:00→21:02)
[2019-09-27] MEDS: CHLORHEXIDINE GLUCONATE 15 ML UDC MM SCH (09:00)
[2019-09-27] MEDS: HYDROGEN PEROXIDE 480 ML BOTTLE TP SCH ×2 (10:00→21:24)
[2019-09-27] MEDS: Z GUARD REMEDY 4 OZ OINT TP SCH ×2 (11:20→21:04)
[2019-09-27] MEDS: NEOMY SULF/BACITRAC ZN/POLY 15 GM TUBE TP SCH ×2 (11:20→21:04)
[2019-09-27] MEDS: MINERAL OIL/PETROL OINT 396 GM JAR TP SCH ×2 (11:20→21:04)
[2019-09-27] MEDS: NEPRO 1,000 ML BOTTLE GT PRN (14:02)
[2019-09-27 20:43] VITALS: BP 159/70
[2019-09-27] MEDS: DOXAZOSIN MESYLATE (4 MG) 4 MG TABLET GT SCH (21:04)
[2019-09-27] MEDS: SENNOSIDES 8.6 MG TABLET GT SCH (21:06)
--- NOTE | 2019-09-27 21:24 | NUR ---
RT NOTE PT RECEIVED TRACHED ON MECHANICAL VENTILATION. AMBU BAG/BACK UP TRACH @ BEDSIDE. CUFF CHECKED VIA PHONE REPRESENTATIVE. TX GIVEN, NO ADVERSE REACTIONS NOTED. SX DONE, TRACH SECURED AND PATENT. VENT PLUGGED TO RED OUTLET. ALARMS ON AND AUDIBLE. WILL MONITOR T/O SHIFT. Addendum: 09/27/19 at 2124 by MEGHAN MEHTA RT Amended: Links added.
[2019-09-28] MEDS: BLOOD SUGAR DIAGNOSTIC 1 EACH STRIP IN SCH ×5 (00:21→23:56)
[2019-09-28] MEDS: INSULIN ASPART/LISPRO 100 UNIT/ML CARTRIDGE SQ PRN ×5 (00:23→23:57)
[2019-09-28] MEDS: IPRATROPIUM NEB FS 0.5 MG/2.5 ML AMPUL.NEB NEB SCH ×4 (01:59→20:15)
[2019-09-28] MEDS: ALBUTEROL FS 2.5 MG/0.5 ML VIAL.NEB NEB SCH ×4 (01:59→20:15)
[2019-09-28] MEDS: hydrALAZINE HCL 25 MG TABLET GT SCH ×3 (05:18→21:58)
[2019-09-28] MEDS: METOCLOPRAMIDE HCL 10 MG TABLET GT SCH ×3 (05:19→21:58)
[2019-09-28] MEDS: CLONIDINE HCL 0.1 MG TABLET GT SCH ×3 (05:19→21:58)
[2019-09-28] MEDS: LABETALOL HCL (100MG) 100 MG TABLET GT SCH ×3 (05:20→21:59)
[2019-09-28 07:33] VITALS: BP 150/75
--- NOTE | 2019-09-28 08:00 | NUR ---
RT NOTE PT REC'D TRACHED ON MECHANICAL VENTILATION. AMBU BAG/BACK UP TRACH @ BEDSIDE. TRACH SECURED AND PATENT. VENT PLUGGED TO RED OUTLET. ALARMS ON AND AUDIBLE. NO SOB NOTED AT THIS TIME. WILL MONITOR. Addendum: 09/28/19 at 0801 by HILL BIRMINGHAM RT Amended: Links added.
[2019-09-28] MEDS: HYDROGEN PEROXIDE 480 ML BOTTLE TP SCH ×2 (08:17→20:38)
[2019-09-28] MEDS: SPIRONOLACTONE 50 MG TABLET GT SCH (08:40)
[2019-09-28] MEDS: DOCUSATE SODIUM LIQ 100 MG/10 ML UDC GT SCH ×2 (08:40→21:58)
[2019-09-28] MEDS: LACTOBACILLUS RHAMNOSUS GG 1 EACH CAP.SPRINK GT SCH ×2 (08:42→16:40)
[2019-09-28] MEDS: ISOSORBIDE DINITRATE (20MG) 20 MG TABLET GT SCH ×3 (08:43→16:41)
[2019-09-28] MEDS: FERROUS SULFATE UDC 300 MG/5 ML UDC GT SCH (08:43)
[2019-09-28] MEDS: SITAGLIPTIN PHOSPHATE 50 MG TABLET GT SCH (08:43)
[2019-09-28] MEDS: LEVETIRACETAM SOL (5 ML) 100 MG/ML UDC GT SCH ×2 (08:43→21:58)
[2019-09-28] MEDS: MINOXIDIL (2.5MG) 2.5 MG TABLET GT SCH (08:44)
[2019-09-28] MEDS: VIT B CMPLX 3/FA/VIT C/BIOTIN 1 TAB TABLET GT SCH (08:44)
[2019-09-28] MEDS: AMLODIPINE BESYLATE 10 MG TABLET GT SCH (08:45)
[2019-09-28] MEDS: FAMOTIDINE (20 MG) 20 MG TABLET GT SCH (08:45)
[2019-09-28] MEDS: PROSOURCE / PROSTAT (PYXIS) 30 ML UDC GT SCH ×2 (08:45→21:58)
[2019-09-28] MEDS: ACETAMINOPHEN 650 MG/20 ML UDC- SA PATIENTS-PAIN ONLY GT SCH (08:46)
[2019-09-28] MEDS: CHLORHEXIDINE GLUCONATE 15 ML UDC MM SCH (08:46)
[2019-09-28] MEDS: NEOMY SULF/BACITRAC ZN/POLY 15 GM TUBE TP SCH (09:00)
[2019-09-28] MEDS: INSULIN GLARGINE SQ SCH ×2 (09:00→21:59)
[2019-09-28] MEDS: BASAGLAR SQ SCH ×2 (09:00→21:59)
[2019-09-28] MEDS: MINERAL OIL/PETROL OINT 396 GM JAR TP SCH ×2 (09:00→21:59)
[2019-09-28] MEDS: Z GUARD REMEDY 4 OZ OINT TP SCH ×2 (09:00→21:59)
--- NOTE | 2019-09-28 09:10 | NUR ---
Marija 17 units held per MD order due to low BS-75. Resident awake and responsive. Stable v/s. Will continue to monitor.
--- NOTE | 2019-09-28 09:15 | NUR ---
Notified Dr. Treadwell of blood sugar = 75. New order given to hold the dose this morning and decrease Basaglar to 15 units. Order carried out.
--- NOTE | 2019-09-28 10:56 | NUR ---
RT NOTE PT PLACED ON COOL AEROSOL 35% FIO2 PER MD ORDERS. PT AWAKE AND ALERT. NO SOB NOTED AT THIS TIME. TRACH TUBE PATENT AND SECURE. ABG ORDER WILL BE DRAWN 1HR FROM THIS TIME. Addendum: 09/28/19 at 1058 by HILL BIRMINGHAM RT Amended: Links added.
[2019-09-28 12:18] LABS: ABG BASE EXCESS 3.7 mmol/L; ABG OXYGEN SATURATION 94.4 % (92.0-98.5); ABG PH 7.388 (7.350-7.450); ABG PO2 80.5 mmHg (75.0-100.0); AaDO2 110.9 mmHg; COHb 0.7 % (0.5-1.5); MetHb 0.5 % (0.0-1.5); O2Hb 93.3 % (94.0-97.0); SITE, ABG Right Radial
--- NOTE | 2019-09-28 13:36 | NUR ---
Relayed ABG result to Dr. Braun taken while patient on cool aerosol. Gave an order to continue with cool aerosol and may have swallow eval with ST. Order carried out. Resident and responsible democrat Millie Mustafa, patient's aunt informed of new order, she said. "thank you, because he has been asking for water". ST will do eval in AM.
--- NOTE | 2019-09-28 14:01 | NUR ---
JOELLE contacted and spoke with the patients father, Ashish Tena to invite family to Family Support Group for the month of September taking place 10/05/19 from 11am-12 pm in the old admin room. Ashish expressed that him and his will try to attend. Noted. Addendum: 09/28/19 at 1608 by JOHN LAI Disregard Note, its is for a different resident.
[2019-09-28] MEDS ORDERED: RETACRIT 10,000 UNITS SQ SCH (15:00)
--- NOTE | 2019-09-28 15:57 | NUR ---
JOELLE set up Dental exam with Dr. Mandujano office manager receptionist, Shashank [phone] for today 09/28/19. JOELLE faxed patients Face Sheet to Shashank at [phone]. JOELLE received completed fax receipt. JOELLE. JOELLE informed the patients responsible democrat, Keith Klein [phone] that the patient is scheduled to have dental exam today. JOELLE informed charge nurse. Addendum: 09/28/19 at 1606 by JOHN LAI Appointment made at 12:30pm.
--- NOTE | 2019-09-28 16:06 | NUR ---
Dr. Raman completed dental exam. 's progress note was filed in pt.'s chart.
[2019-09-28] MEDS: NEPRO 1,000 ML BOTTLE GT PRN (16:22)
--- NOTE | 2019-09-28 20:54 | NUR ---
PT RCVD TRACH'D ON COOL AEROSOL WITH CHARTED SETTINGS. PT LITZY TX WELL. SX DONE. PT TRACH IS PATENT AND SECURE. AMBU BAG AT BEDSIDE. NO SOB NOTED. Addendum: 09/28/19 at 2053 by LAST TIRADO RT Amended: Links added.
[2019-09-28] MEDS ORDERED: ONDANSETRON HCL/PF 4 MG/2 ML VIAL IVP PRN (21:00)
[2019-09-28] MEDS: SENNOSIDES 8.6 MG TABLET GT SCH (21:59)
[2019-09-28] MEDS: DOXAZOSIN MESYLATE (4 MG) 4 MG TABLET GT SCH (21:59)
[2019-09-29] MEDS: IPRATROPIUM NEB FS 0.5 MG/2.5 ML AMPUL.NEB NEB SCH ×4 (01:02→20:00)
[2019-09-29] MEDS: ALBUTEROL FS 2.5 MG/0.5 ML VIAL.NEB NEB SCH ×4 (01:02→20:00)
[2019-09-29] MEDS: METOCLOPRAMIDE HCL 10 MG TABLET GT SCH ×3 (05:40→21:00)
[2019-09-29] MEDS: CLONIDINE HCL 0.1 MG TABLET GT SCH ×3 (05:40→21:00)
[2019-09-29] MEDS: hydrALAZINE HCL 25 MG TABLET GT SCH ×3 (05:40→21:00)
[2019-09-29] MEDS: BLOOD SUGAR DIAGNOSTIC 1 EACH STRIP IN SCH ×3 (05:41→18:27)
[2019-09-29] MEDS: LABETALOL HCL (100MG) 100 MG TABLET GT SCH ×3 (05:41→21:00)
[2019-09-29] MEDS: INSULIN ASPART/LISPRO 100 UNIT/ML CARTRIDGE SQ PRN ×3 (05:41→18:28)
[2019-09-29 07:46] VITALS: BP 158/74
[2019-09-29] MEDS: HYDROGEN PEROXIDE 480 ML BOTTLE TP SCH ×2 (09:00→21:00)
[2019-09-29] MEDS: LACTOBACILLUS RHAMNOSUS GG 1 EACH CAP.SPRINK GT SCH ×2 (09:55→17:55)
[2019-09-29] MEDS: VIT B CMPLX 3/FA/VIT C/BIOTIN 1 TAB TABLET GT SCH (09:55)
[2019-09-29] MEDS: BASAGLAR SQ SCH ×2 (09:55→21:00)
[2019-09-29] MEDS: PROSOURCE / PROSTAT (PYXIS) 30 ML UDC GT SCH ×2 (09:55→21:00)
[2019-09-29] MEDS: INSULIN GLARGINE SQ SCH ×2 (09:55→21:00)
[2019-09-29] MEDS: CHLORHEXIDINE GLUCONATE 15 ML UDC MM SCH (09:55)
[2019-09-29] MEDS: LEVETIRACETAM SOL (5 ML) 100 MG/ML UDC GT SCH ×2 (09:55→21:00)
[2019-09-29] MEDS: DOCUSATE SODIUM LIQ 100 MG/10 ML UDC GT SCH ×2 (09:55→21:00)
[2019-09-29] MEDS: MINOXIDIL (2.5MG) 2.5 MG TABLET GT SCH (09:55)
[2019-09-29] MEDS: ISOSORBIDE DINITRATE (20MG) 20 MG TABLET GT SCH ×3 (09:55→17:55)
[2019-09-29] MEDS: SITAGLIPTIN PHOSPHATE 50 MG TABLET GT SCH (09:55)
[2019-09-29] MEDS: FERROUS SULFATE UDC 300 MG/5 ML UDC GT SCH (09:55)
[2019-09-29] MEDS: AMLODIPINE BESYLATE 10 MG TABLET GT SCH (09:55)
[2019-09-29] MEDS: SPIRONOLACTONE 50 MG TABLET GT SCH (09:55)
[2019-09-29] MEDS: Z GUARD REMEDY 4 OZ OINT TP SCH ×2 (09:55→21:00)
[2019-09-29] MEDS: MINERAL OIL/PETROL OINT 396 GM JAR TP SCH ×2 (09:55→21:00)
[2019-09-29] MEDS: FAMOTIDINE (20 MG) 20 MG TABLET GT SCH (09:55)
[2019-09-29] MEDS: ACETAMINOPHEN 650 MG/20 ML UDC- SA PATIENTS-PAIN ONLY GT SCH (10:14)
[2019-09-29] MEDS: NEPRO 1,000 ML BOTTLE GT PRN (18:28)
[2019-09-29 19:29] VITALS: BP 130/57
--- NOTE | 2019-09-29 20:17 | NUR ---
Seen and examined by MAYRA Hoang no new orders.
[2019-09-29] MEDS: SENNOSIDES 8.6 MG TABLET GT SCH (22:09)
[2019-09-29] MEDS: DOXAZOSIN MESYLATE (4 MG) 4 MG TABLET GT SCH (22:24)
[2019-09-30] MEDS: BLOOD SUGAR DIAGNOSTIC 1 EACH STRIP IN SCH ×5 (00:07→23:57)
[2019-09-30] MEDS: INSULIN ASPART/LISPRO 100 UNIT/ML CARTRIDGE SQ PRN ×5 (00:11→23:59)
[2019-09-30] MEDS: ALBUTEROL FS 2.5 MG/0.5 ML VIAL.NEB NEB SCH ×4 (01:41→20:02)
[2019-09-30] MEDS: IPRATROPIUM NEB FS 0.5 MG/2.5 ML AMPUL.NEB NEB SCH ×4 (01:41→20:02)
[2019-09-30] MEDS: hydrALAZINE HCL 25 MG TABLET GT SCH ×3 (05:54→21:58)
[2019-09-30] MEDS: CLONIDINE HCL 0.1 MG TABLET GT SCH ×3 (05:55→21:58)
[2019-09-30] MEDS: LABETALOL HCL (100MG) 100 MG TABLET GT SCH ×3 (05:55→21:58)
[2019-09-30] MEDS: METOCLOPRAMIDE HCL 10 MG TABLET GT SCH ×3 (05:55→21:58)
[2019-09-30 08:03] VITALS: BP 153/77
[2019-09-30] MEDS: HYDROGEN PEROXIDE 480 ML BOTTLE TP SCH ×2 (09:17→21:00)
[2019-09-30] MEDS: Z GUARD REMEDY 4 OZ OINT TP SCH ×2 (09:45→21:58)
[2019-09-30] MEDS: MINERAL OIL/PETROL OINT 396 GM JAR TP SCH ×2 (09:45→21:58)
[2019-09-30] MEDS: SITAGLIPTIN PHOSPHATE 50 MG TABLET GT SCH (09:54)
[2019-09-30] MEDS: MINOXIDIL (2.5MG) 2.5 MG TABLET GT SCH (09:54)
[2019-09-30] MEDS: SPIRONOLACTONE 50 MG TABLET GT SCH (09:54)
[2019-09-30] MEDS: AMLODIPINE BESYLATE 10 MG TABLET GT SCH (09:54)
[2019-09-30] MEDS: FAMOTIDINE (20 MG) 20 MG TABLET GT SCH (09:54)
[2019-09-30] MEDS: DOCUSATE SODIUM LIQ 100 MG/10 ML UDC GT SCH ×2 (09:54→21:58)
[2019-09-30] MEDS: LACTOBACILLUS RHAMNOSUS GG 1 EACH CAP.SPRINK GT SCH ×2 (09:54→17:55)
[2019-09-30] MEDS: VIT B CMPLX 3/FA/VIT C/BIOTIN 1 TAB TABLET GT SCH (09:54)
[2019-09-30] MEDS: LEVETIRACETAM SOL (5 ML) 100 MG/ML UDC GT SCH ×2 (09:54→21:58)
[2019-09-30] MEDS: ISOSORBIDE DINITRATE (20MG) 20 MG TABLET GT SCH ×3 (09:54→17:55)
[2019-09-30] MEDS: FERROUS SULFATE UDC 300 MG/5 ML UDC GT SCH (09:54)
[2019-09-30] MEDS: PROSOURCE / PROSTAT (PYXIS) 30 ML UDC GT SCH ×2 (09:55→21:58)
[2019-09-30] MEDS: ACETAMINOPHEN 650 MG/20 ML UDC- SA PATIENTS-PAIN ONLY GT SCH (09:55)
[2019-09-30] MEDS: CHLORHEXIDINE GLUCONATE 15 ML UDC MM SCH (09:55)
[2019-09-30] MEDS: INSULIN GLARGINE SQ SCH ×2 (10:02→22:00)
[2019-09-30] MEDS: BASAGLAR SQ SCH ×2 (10:02→22:00)
--- NOTE | 2019-09-30 15:53 | NUR ---
JOELLE left a voicemail for the pt.s Uncle, Keith [phone] inviting them to the IDT meeting 10/07/19 12:30-1:30 in the activities room. JOELLE left call back number and asked that Keith ,notify JOELLE if he is able to attend or participate via phone conference.
[2019-09-30] MEDS ORDERED: BARIUM SULFATE 240 ML ORAL.SUSP PO ONE ×2 (17:12)
[2019-09-30] MEDS ORDERED: BARIUM SULFATE 148 GM SUSP.RECON PO ONE ×2 (17:12)
--- NOTE | 2019-09-30 17:21 | NUR ---
RT Patient was received on% cool aerosol via T-Bar.Patient stable throughout the shift. Trach is patent and secured.Will continue to monitor. Addendum: 09/30/19 at 1722 by ABDULAZIZ FOFANA RT Amended: Links added. Addendum: 10/01/19 at 1343 by NABOR AMBRIZ RT DURING LUNCH TIME PMV WAS PLACED, SHORTLY AFTER WAS CALLED BY NURSE PT WAS HAVING DIFFICULTY EATING PMV WAS REMOVED, PT CONTINUED TO BE FED BY LANDSCAPE ARCHITECTURE TEACHER, WHILE RT WAS AT BEDSIDE, NO COUGH OR DIFFICULTY EATING NOTICED.
[2019-09-30 21:05] VITALS: BP 153/75
[2019-09-30] MEDS: DOXAZOSIN MESYLATE (4 MG) 4 MG TABLET GT SCH (21:59)
[2019-09-30] MEDS: SENNOSIDES 8.6 MG TABLET GT SCH (21:59)
[2019-09-30] MEDS: NEPRO 1,000 ML BOTTLE GT PRN (22:15)
[2019-10-01] MEDS: ALBUTEROL FS 2.5 MG/0.5 ML VIAL.NEB NEB SCH ×4 (01:44→20:19)
[2019-10-01] MEDS: IPRATROPIUM NEB FS 0.5 MG/2.5 ML AMPUL.NEB NEB SCH ×4 (01:44→20:19)
[2019-10-01] MEDS: hydrALAZINE HCL 25 MG TABLET GT SCH ×3 (05:39→20:38)
[2019-10-01] MEDS: BLOOD SUGAR DIAGNOSTIC 1 EACH STRIP IN SCH ×4 (05:40→23:46)
[2019-10-01] MEDS: CLONIDINE HCL 0.1 MG TABLET GT SCH ×3 (05:40→20:39)
[2019-10-01] MEDS: LABETALOL HCL (100MG) 100 MG TABLET GT SCH ×3 (05:40→20:39)
[2019-10-01] MEDS: METOCLOPRAMIDE HCL 10 MG TABLET GT SCH ×3 (05:40→20:39)
[2019-10-01] MEDS: INSULIN ASPART/LISPRO 100 UNIT/ML CARTRIDGE SQ PRN ×4 (05:41→23:49)
[2019-10-01] MEDS: ACETAMINOPHEN 650 MG/20 ML UDC- SA PATIENTS-PAIN ONLY GT SCH (09:00)
[2019-10-01] MEDS: LACTOBACILLUS RHAMNOSUS GG 1 EACH CAP.SPRINK GT SCH ×2 (09:27→17:31)
[2019-10-01] MEDS: SITAGLIPTIN PHOSPHATE 50 MG TABLET GT SCH (09:27)
[2019-10-01] MEDS: LEVETIRACETAM SOL (5 ML) 100 MG/ML UDC GT SCH ×2 (09:27→20:39)
[2019-10-01] MEDS: INSULIN GLARGINE SQ SCH ×2 (09:27→21:03)
[2019-10-01] MEDS: DOCUSATE SODIUM LIQ 100 MG/10 ML UDC GT SCH ×2 (09:27→20:39)
[2019-10-01] MEDS: FAMOTIDINE (20 MG) 20 MG TABLET GT SCH (09:27)
[2019-10-01] MEDS: BASAGLAR SQ SCH ×2 (09:27→21:03)
[2019-10-01] MEDS: FERROUS SULFATE UDC 300 MG/5 ML UDC GT SCH (09:27)
[2019-10-01] MEDS: PROSOURCE / PROSTAT (PYXIS) 30 ML UDC GT SCH ×2 (09:27→20:39)
[2019-10-01] MEDS: SPIRONOLACTONE 50 MG TABLET GT SCH (09:27)
[2019-10-01] MEDS: AMLODIPINE BESYLATE 10 MG TABLET GT SCH (09:28)
[2019-10-01] MEDS: MINOXIDIL (2.5MG) 2.5 MG TABLET GT SCH (09:28)
[2019-10-01] MEDS: VIT B CMPLX 3/FA/VIT C/BIOTIN 1 TAB TABLET GT SCH (09:28)
[2019-10-01] MEDS: ISOSORBIDE DINITRATE (20MG) 20 MG TABLET GT SCH ×3 (09:28→17:32)
[2019-10-01] MEDS: HYDROGEN PEROXIDE 480 ML BOTTLE TP SCH ×2 (09:56→21:25)
[2019-10-01] MEDS: CHLORHEXIDINE GLUCONATE 15 ML UDC MM SCH (11:50)
[2019-10-01] MEDS: Z GUARD REMEDY 4 OZ OINT TP SCH ×2 (11:50→20:40)
[2019-10-01] MEDS: MINERAL OIL/PETROL OINT 396 GM JAR TP SCH ×2 (11:50→20:39)
--- NOTE | 2019-10-01 13:30 | NUR ---
RT NOTE PMV WAS PLACED WITH MEAL , GOT CALLED IN DUE EXCESSIVE CAUGHING WHILE EATING, PMV WAS THEN REMOVED AND RT STAYED BY BEDSIDE TO WITNESS EATING, PT DID NOT COUGH ONCE, LITZY FOOD WELL, NO SIGNS OF ASPIRATIONS NOTED WILL MONITOR CLOSELY
[2019-10-01 14:04] VITALS: BP 140/72
--- NOTE | 2019-10-01 16:41 | NUR ---
Tylenol 650mg not given due to no RNA on the weekend.
[2019-10-01] MEDS: NEPRO 1,000 ML BOTTLE GT PRN (18:12)
[2019-10-01 20:27] VITALS: BP 123/60
[2019-10-01] MEDS: NEOMY SULF/BACITRAC ZN/POLY 15 GM TUBE TP SCH (21:03)
[2019-10-01] MEDS: DOXAZOSIN MESYLATE (4 MG) 4 MG TABLET GT SCH (21:04)
[2019-10-01] MEDS: SENNOSIDES 8.6 MG TABLET GT SCH (21:04)
[2019-10-02] MEDS: IPRATROPIUM NEB FS 0.5 MG/2.5 ML AMPUL.NEB NEB SCH ×4 (01:30→19:41)
[2019-10-02] MEDS: ALBUTEROL FS 2.5 MG/0.5 ML VIAL.NEB NEB SCH ×4 (01:30→19:41)
[2019-10-02] MEDS: METOCLOPRAMIDE HCL 10 MG TABLET GT SCH ×3 (05:38→20:36)
[2019-10-02] MEDS: CLONIDINE HCL 0.1 MG TABLET GT SCH ×3 (05:38→20:35)
[2019-10-02] MEDS: hydrALAZINE HCL 25 MG TABLET GT SCH ×3 (05:38→20:34)
[2019-10-02] MEDS: LABETALOL HCL (100MG) 100 MG TABLET GT SCH ×3 (05:39→20:37)
[2019-10-02] MEDS: INSULIN ASPART/LISPRO 100 UNIT/ML CARTRIDGE SQ PRN ×3 (06:06→17:29)
[2019-10-02] MEDS: BLOOD SUGAR DIAGNOSTIC 1 EACH STRIP IN SCH ×3 (06:06→17:28)
[2019-10-02 07:30] VITALS: BP 133/71
[2019-10-02] MEDS: ACETAMINOPHEN 650 MG/20 ML UDC- SA PATIENTS-PAIN ONLY GT SCH (09:00)
--- NOTE | 2019-10-02 09:33 | NUR ---
Tylenol 650 mg via GT not given. No RNA during the weekend.
[2019-10-02] MEDS: SPIRONOLACTONE 50 MG TABLET GT SCH (09:45)
[2019-10-02] MEDS: LEVETIRACETAM SOL (5 ML) 100 MG/ML UDC GT SCH ×2 (09:45→20:36)
[2019-10-02] MEDS: SITAGLIPTIN PHOSPHATE 50 MG TABLET GT SCH (09:45)
[2019-10-02] MEDS: AMLODIPINE BESYLATE 10 MG TABLET GT SCH (09:45)
[2019-10-02] MEDS: PROSOURCE / PROSTAT (PYXIS) 30 ML UDC GT SCH ×2 (09:45→20:36)
[2019-10-02] MEDS: FERROUS SULFATE UDC 300 MG/5 ML UDC GT SCH (09:45)
[2019-10-02] MEDS: FAMOTIDINE (20 MG) 20 MG TABLET GT SCH (09:45)
[2019-10-02] MEDS: VIT B CMPLX 3/FA/VIT C/BIOTIN 1 TAB TABLET GT SCH (09:45)
[2019-10-02] MEDS: MINOXIDIL (2.5MG) 2.5 MG TABLET GT SCH (09:45)
[2019-10-02] MEDS: LACTOBACILLUS RHAMNOSUS GG 1 EACH CAP.SPRINK GT SCH ×2 (09:45→17:38)
[2019-10-02] MEDS: DOCUSATE SODIUM LIQ 100 MG/10 ML UDC GT SCH ×2 (09:45→20:35)
[2019-10-02] MEDS: ISOSORBIDE DINITRATE (20MG) 20 MG TABLET GT SCH ×3 (09:46→17:38)
[2019-10-02] MEDS: INSULIN GLARGINE SQ SCH ×2 (09:47→20:46)
[2019-10-02] MEDS: BASAGLAR SQ SCH ×2 (09:47→20:46)
[2019-10-02] MEDS: HYDROGEN PEROXIDE 480 ML BOTTLE TP SCH ×2 (09:48→22:15)
[2019-10-02] MEDS: NEOMY SULF/BACITRAC ZN/POLY 15 GM TUBE TP SCH ×2 (10:15→20:47)
[2019-10-02] MEDS: CHLORHEXIDINE GLUCONATE 15 ML UDC MM SCH (10:15)
[2019-10-02] MEDS: MINERAL OIL/PETROL OINT 396 GM JAR TP SCH ×2 (10:15→20:46)
[2019-10-02] MEDS: Z GUARD REMEDY 4 OZ OINT TP SCH ×2 (10:15→20:47)
--- NOTE | 2019-10-02 13:51 | NUR ---
Dr. Treadwell came by and asked MD if patient should have fluid restriction since he has history of acute renal failure. Patient has been asking for water frequently. According to MD he can drink as much water, no restriction because his kidney function is OK. Resident informed and endorsed to next shift.
--- NOTE | 2019-10-02 17:59 | NUR ---
RT NOTE DURING MEALS RT REMAINED AT BEDSIDE TO WITNESS EATING, PT LITZY FEEDING WELL WITHOUT PMV, NO EPISODES OF COUGHING WITNESS, NO ASPIRATION NOTED, PT MORE COMFORTABLE WITHOUT PMV ON
--- NOTE | 2019-10-02 18:45 | NUR ---
Received a call from patient's sister Rekha asking for an update regarding patient's condition. Informed Rekha of patient's condition/improvement that he is no longer on ventilator, he is eating by mouth with staff assistance 2x/day (breakfast and lunch) and has been drinking plenty of water as van driver helper said that his kidney function is OK. Informed resident that his sister called and pleased to know about it.
[2019-10-02] MEDS: SENNOSIDES 8.6 MG TABLET GT SCH (21:35)
[2019-10-02] MEDS: DOXAZOSIN MESYLATE (4 MG) 4 MG TABLET GT SCH (21:35)
[2019-10-02 22:43] VITALS: BP 147/80
[2019-10-03] MEDS: BLOOD SUGAR DIAGNOSTIC 1 EACH STRIP IN SCH ×4 (00:21→18:15)
[2019-10-03] MEDS: INSULIN ASPART/LISPRO 100 UNIT/ML CARTRIDGE SQ PRN ×2 (00:22→05:39)
[2019-10-03] MEDS: IPRATROPIUM NEB FS 0.5 MG/2.5 ML AMPUL.NEB NEB SCH ×4 (02:03→19:54)
[2019-10-03] MEDS: ALBUTEROL FS 2.5 MG/0.5 ML VIAL.NEB NEB SCH ×4 (02:04→19:54)
[2019-10-03] MEDS: hydrALAZINE HCL 25 MG TABLET GT SCH ×3 (05:34→20:51)
[2019-10-03] MEDS: CLONIDINE HCL 0.1 MG TABLET GT SCH ×3 (05:35→20:51)
[2019-10-03] MEDS: METOCLOPRAMIDE HCL 10 MG TABLET GT SCH ×3 (05:36→20:53)
[2019-10-03] MEDS: LABETALOL HCL (100MG) 100 MG TABLET GT SCH ×3 (05:37→20:54)
[2019-10-03 07:47] VITALS: BP 153/77
[2019-10-03] MEDS: FERROUS SULFATE UDC 300 MG/5 ML UDC GT SCH (09:00)
[2019-10-03] MEDS: Z GUARD REMEDY 4 OZ OINT TP SCH ×2 (09:00→20:58)
[2019-10-03] MEDS: MINERAL OIL/PETROL OINT 396 GM JAR TP SCH ×2 (09:00→20:58)
[2019-10-03] MEDS: FAMOTIDINE (20 MG) 20 MG TABLET GT SCH (09:00)
[2019-10-03] MEDS: DOCUSATE SODIUM LIQ 100 MG/10 ML UDC GT SCH ×2 (09:00→20:52)
[2019-10-03] MEDS: PROSOURCE / PROSTAT (PYXIS) 30 ML UDC GT SCH ×2 (09:00→20:53)
[2019-10-03] MEDS: LEVETIRACETAM SOL (5 ML) 100 MG/ML UDC GT SCH ×2 (09:00→20:52)
[2019-10-03] MEDS: ISOSORBIDE DINITRATE (20MG) 20 MG TABLET GT SCH ×3 (09:00→17:00)
[2019-10-03] MEDS: MINOXIDIL (2.5MG) 2.5 MG TABLET GT SCH (09:00)
[2019-10-03] MEDS: SPIRONOLACTONE 50 MG TABLET GT SCH (09:00)
[2019-10-03] MEDS: NEOMY SULF/BACITRAC ZN/POLY 15 GM TUBE TP SCH ×2 (09:00→20:58)
[2019-10-03] MEDS: VIT B CMPLX 3/FA/VIT C/BIOTIN 1 TAB TABLET GT SCH (09:00)
[2019-10-03] MEDS: AMLODIPINE BESYLATE 10 MG TABLET GT SCH (09:00)
[2019-10-03] MEDS: HYDROGEN PEROXIDE 480 ML BOTTLE TP SCH ×2 (09:00→19:55)
[2019-10-03] MEDS: LACTOBACILLUS RHAMNOSUS GG 1 EACH CAP.SPRINK GT SCH ×2 (09:00→17:00)
[2019-10-03] MEDS: BASAGLAR SQ SCH ×2 (09:00→21:05)
[2019-10-03] MEDS: INSULIN GLARGINE SQ SCH ×2 (09:00→21:05)
[2019-10-03] MEDS: SITAGLIPTIN PHOSPHATE 50 MG TABLET GT SCH (09:00)
[2019-10-03] MEDS: CHLORHEXIDINE GLUCONATE 15 ML UDC MM SCH (09:00)
[2019-10-03] MEDS: ACETAMINOPHEN 650 MG/20 ML UDC- SA PATIENTS-PAIN ONLY GT SCH (10:30)
[2019-10-03] MEDS: NEPRO 1,000 ML BOTTLE GT PRN (13:32)
--- NOTE | 2019-10-03 17:08 | NUR ---
Informed ST Deleon that pt was having a difficult time breathing with the PMV on while eating. RT Higgins said pt feels anxious with the PMV on and verbalized that he prefers not to use it. RT Higgins also said that pt is able to tolerated PMV at times. ST Deleon said pt may use PMV as tolerated while eating.
--- NOTE | 2019-10-03 20:05 | NUR ---
RT NOTE: RECEIVED TRACH PT ON COOL AEROSOL. AMBU BAG @ BEDSIDE. Q6 BREATHING TX GIVEN PER MD ORDERS WITH NO ADVERSE REACTION NOTED. SX DONE PRN. TRACH PATENT AND SECURED. TRACH CARE DONE. NO RESP DISTRESS NOTED AT THIS TIME. WILL CONTINUE TO MONITOR PT Addendum: 10/04/19 at 0338 by GATO MICHELE RT Amended: Links added.
[2019-10-03 21:07] VITALS: BP 163/87
[2019-10-03] MEDS: SENNOSIDES 8.6 MG TABLET GT SCH (21:21)
[2019-10-03] MEDS: DOXAZOSIN MESYLATE (4 MG) 4 MG TABLET GT SCH (21:21)
[2019-10-04] MEDS: BLOOD SUGAR DIAGNOSTIC 1 EACH STRIP IN SCH ×4 (00:02→17:51)
[2019-10-04] MEDS: INSULIN ASPART/LISPRO 100 UNIT/ML CARTRIDGE SQ PRN ×4 (00:03→17:52)
[2019-10-04] MEDS: ALBUTEROL FS 2.5 MG/0.5 ML VIAL.NEB NEB SCH ×4 (02:09→20:06)
[2019-10-04] MEDS: IPRATROPIUM NEB FS 0.5 MG/2.5 ML AMPUL.NEB NEB SCH ×4 (02:09→20:06)
[2019-10-04] MEDS: CLONIDINE HCL 0.1 MG TABLET GT SCH ×3 (05:41→20:38)
[2019-10-04] MEDS: hydrALAZINE HCL 25 MG TABLET GT SCH ×3 (05:41→20:38)
[2019-10-04] MEDS: LABETALOL HCL (100MG) 100 MG TABLET GT SCH ×3 (05:42→20:42)
[2019-10-04] MEDS: METOCLOPRAMIDE HCL 10 MG TABLET GT SCH ×3 (05:42→20:51)
[2019-10-04 06:53] LABS: BASOPHILS # (AUTO) 0.1 /CMM (0.0-0.2); EOSINOPHILS % (AUTO) 6.7 % (0.0-6.0); HEMATOCRIT 25 % (39-51); HEMOGLOBIN 8.5 g/dL (13.5-17.5); LYMPHOCYTES # (AUTO) 1.2 /CMM (0.8-4.8); LYMPHOCYTES % (AUTO) 19.2 % (20.0-44.0); MEAN CORPUSCULAR HGB CONC 34 g/dl (31.0-36.0); MEAN CORPUSCULAR VOLUME 92 fL (80-96); MONOCYTES # (AUTO) 0.8 /CMM (0.1-1.30); MONOCYTES % (AUTO) 13.2 % (2.0-12.0); NEUTROPHILS # (AUTO) 3.6 /CMM (1.8-8.9); NEUTROPHILS % (AUTO) 59.9 % (43.0-81.0); PLATELET COUNT (AUTO) 185 /CMM (150-450); RED BLOOD CELL COUNT(AUTO) 2.73 MIL/uL (4.5-6.0)
[2019-10-04 07:18] LABS: CALCIUM, SERUM 9.3 mg/dL (8.5-10.1); CREATININE 2.5 mg/dL (0.6-1.3); MAGNESIUM 2.6 mg/dL (1.8-2.4); PHOSPHORUS 3.3 mg/dL (2.5-4.9); POTASSIUM 4.9 mmol/L (3.5-5.1)
[2019-10-04 08:00] VITALS: BP 134/74
[2019-10-04] MEDS: Z GUARD REMEDY 4 OZ OINT TP SCH ×2 (09:00→20:43)
[2019-10-04] MEDS: HYDROGEN PEROXIDE 480 ML BOTTLE TP SCH ×2 (09:00→20:32)
[2019-10-04] MEDS: NEOMY SULF/BACITRAC ZN/POLY 15 GM TUBE TP SCH ×2 (09:00→20:43)
[2019-10-04] MEDS: MINERAL OIL/PETROL OINT 396 GM JAR TP SCH ×2 (09:00→20:43)
[2019-10-04] MEDS: BASAGLAR SQ SCH ×2 (09:36→20:52)
[2019-10-04] MEDS: INSULIN GLARGINE SQ SCH ×2 (09:36→20:52)
[2019-10-04] MEDS: ACETAMINOPHEN 650 MG/20 ML UDC- SA PATIENTS-PAIN ONLY GT SCH (09:36)
[2019-10-04] MEDS: FAMOTIDINE (20 MG) 20 MG TABLET GT SCH (09:37)
[2019-10-04] MEDS: AMLODIPINE BESYLATE 10 MG TABLET GT SCH (09:37)
[2019-10-04] MEDS: CHLORHEXIDINE GLUCONATE 15 ML UDC MM SCH (09:37)
[2019-10-04] MEDS: PROSOURCE / PROSTAT (PYXIS) 30 ML UDC GT SCH ×2 (09:37→20:40)
[2019-10-04] MEDS: MINOXIDIL (2.5MG) 2.5 MG TABLET GT SCH (09:38)
[2019-10-04] MEDS: SITAGLIPTIN PHOSPHATE 50 MG TABLET GT SCH (09:39)
[2019-10-04] MEDS: VIT B CMPLX 3/FA/VIT C/BIOTIN 1 TAB TABLET GT SCH (09:39)
[2019-10-04] MEDS: ISOSORBIDE DINITRATE (20MG) 20 MG TABLET GT SCH ×3 (09:40→17:51)
[2019-10-04] MEDS: LEVETIRACETAM SOL (5 ML) 100 MG/ML UDC GT SCH ×2 (09:40→20:40)
[2019-10-04] MEDS: FERROUS SULFATE UDC 300 MG/5 ML UDC GT SCH (09:40)
[2019-10-04] MEDS: SPIRONOLACTONE 50 MG TABLET GT SCH (09:41)
[2019-10-04] MEDS: DOCUSATE SODIUM LIQ 100 MG/10 ML UDC GT SCH ×2 (09:41→20:39)
[2019-10-04] MEDS: LACTOBACILLUS RHAMNOSUS GG 1 EACH CAP.SPRINK GT SCH ×2 (09:42→17:51)
--- NOTE | 2019-10-04 10:00 | NUR ---
Seen by Dr Braun. Notified him that pt has difficulty breathing when he has a PMV on while eating. Also informed him that pt feels anxious using the PMV. Pt eating well. No new order.
--- NOTE | 2019-10-04 11:46 | NUR ---
Per Directors request, JOELLE contacted [facility] dept. TEL: [phone] to determine if the patients is eligible to received DME: tilt and space wheelchair. However, they referred me to another number: Customer Service Dept. [phone] and spoke to Narciso. Per Narciso, JOELLE can submit a prior authorization form to [facility] to determine eligibility. JOELLE printed [facility] Authorization Request Form filled it out and will have Admitting Physician sign before it is faxed to [phone] for prior authorization.
--- NOTE | 2019-10-04 13:48 | NUR ---
JOELLE called the pt.s responsible libertarian/ Uncle, Keith [phone] inviting family to the IDT meeting 10/07/19 12:30-1:30 in the activities room. Per Keith, he will try to make it but he is scheduled to work. JOELLE informed Keith that he can get an update from charge nurse if he can't make it to the IDT. Keith expressed understanding. JOELLE also asked Keith to provide SS number to [facility] when possible as we still do not have it. Per Keith he has not been able to find it. Keith requested that JOELLE contact [facility], where the pt. resided prior to [facility] as they might have it. JOELLE will follow up.
[2019-10-04] MEDS: NEPRO 1,000 ML BOTTLE GT PRN (16:11)
[2019-10-04] MEDS: SENNOSIDES 8.6 MG TABLET GT SCH (21:02)
[2019-10-04] MEDS: DOXAZOSIN MESYLATE (4 MG) 4 MG TABLET GT SCH (21:02)
[2019-10-04 21:07] VITALS: BP 131/77
--- NOTE | 2019-10-04 21:17 | NUR ---
RT NOTE PT RECEIVED TRACHED ON COOL AEROSOL @ 28%. AMBU BAG/BACK UP TRACH @ BEDSIDE. TX GIVEN, NO ADVERSE REACTIONS NOTED. SX DONE, TRACH SECURED AND PATENT. WATER LEVEL GOOD. NO SOB NOTED. WILL MONITOR T/O SHIFT. Addendum: 10/04/19 at 2117 by MEGHAN MEHTA RT Amended: Links added.
[2019-10-05] MEDS: BLOOD SUGAR DIAGNOSTIC 1 EACH STRIP IN SCH ×4 (00:30→17:53)
[2019-10-05] MEDS: ALBUTEROL FS 2.5 MG/0.5 ML VIAL.NEB NEB SCH ×4 (02:05→19:46)
[2019-10-05] MEDS: IPRATROPIUM NEB FS 0.5 MG/2.5 ML AMPUL.NEB NEB SCH ×4 (02:06→19:46)
[2019-10-05] MEDS: hydrALAZINE HCL 25 MG TABLET GT SCH ×3 (05:47→21:37)
[2019-10-05] MEDS: CLONIDINE HCL 0.1 MG TABLET GT SCH ×3 (05:47→21:37)
[2019-10-05] MEDS: LABETALOL HCL (100MG) 100 MG TABLET GT SCH ×3 (05:48→21:40)
[2019-10-05] MEDS: METOCLOPRAMIDE HCL 10 MG TABLET GT SCH ×3 (05:49→21:39)
[2019-10-05 07:51] VITALS: BP 149/78
[2019-10-05] MEDS: Z GUARD REMEDY 4 OZ OINT TP SCH ×2 (09:00→21:41)
[2019-10-05] MEDS: HYDROGEN PEROXIDE 480 ML BOTTLE TP SCH ×2 (09:00→21:09)
[2019-10-05] MEDS: NEOMY SULF/BACITRAC ZN/POLY 15 GM TUBE TP SCH ×2 (09:00→21:41)
[2019-10-05] MEDS: MINERAL OIL/PETROL OINT 396 GM JAR TP SCH ×2 (09:00→21:41)
[2019-10-05] MEDS: SPIRONOLACTONE 50 MG TABLET GT SCH (09:45)
[2019-10-05] MEDS: ISOSORBIDE DINITRATE (20MG) 20 MG TABLET GT SCH ×3 (09:45→17:53)
[2019-10-05] MEDS: FERROUS SULFATE UDC 300 MG/5 ML UDC GT SCH (09:45)
[2019-10-05] MEDS: SITAGLIPTIN PHOSPHATE 50 MG TABLET GT SCH (09:45)
[2019-10-05] MEDS: LACTOBACILLUS RHAMNOSUS GG 1 EACH CAP.SPRINK GT SCH ×2 (09:45→17:52)
[2019-10-05] MEDS: DOCUSATE SODIUM LIQ 100 MG/10 ML UDC GT SCH ×2 (09:45→21:37)
[2019-10-05] MEDS: LEVETIRACETAM SOL (5 ML) 100 MG/ML UDC GT SCH ×2 (09:45→21:38)
[2019-10-05] MEDS: AMLODIPINE BESYLATE 10 MG TABLET GT SCH (09:46)
[2019-10-05] MEDS: FAMOTIDINE (20 MG) 20 MG TABLET GT SCH (09:46)
[2019-10-05] MEDS: PROSOURCE / PROSTAT (PYXIS) 30 ML UDC GT SCH ×2 (09:46→21:38)
[2019-10-05] MEDS: VIT B CMPLX 3/FA/VIT C/BIOTIN 1 TAB TABLET GT SCH (09:46)
[2019-10-05] MEDS: MINOXIDIL (2.5MG) 2.5 MG TABLET GT SCH (09:46)
[2019-10-05] MEDS: ACETAMINOPHEN 650 MG/20 ML UDC- SA PATIENTS-PAIN ONLY GT SCH (09:46)
[2019-10-05] MEDS: BASAGLAR SQ SCH ×2 (09:47→21:41)
[2019-10-05] MEDS: INSULIN GLARGINE SQ SCH ×2 (09:47→21:41)
[2019-10-05] MEDS: CHLORHEXIDINE GLUCONATE 15 ML UDC MM SCH (09:47)
[2019-10-05] MEDS ORDERED: EPOETIN ALFA 10000 UNIT SQ ONE (11:30)
[2019-10-05] MEDS: INSULIN ASPART/LISPRO 100 UNIT/ML CARTRIDGE SQ PRN ×2 (12:25→17:54)
--- NOTE | 2019-10-05 13:31 | NUR ---
The pt.'s family was not able to attend this month's Family Support Group.
[2019-10-05] MEDS: NEPRO 1,000 ML BOTTLE GT PRN (18:45)
[2019-10-05 20:37] VITALS: BP 147/68
--- NOTE | 2019-10-05 21:18 | NUR ---
PT RECEIVE STABLE ON CA 28%, TRACH PATENT AND SECURED, LEANN HADDAD AND JOCELIN BAG IS AT BEDSIDE Addendum: 10/05/19 at 2119 by GILBERT ROGERS RT Amended: Links added.
[2019-10-05] MEDS: SENNOSIDES 8.6 MG TABLET GT SCH (21:41)
[2019-10-05] MEDS: DOXAZOSIN MESYLATE (4 MG) 4 MG TABLET GT SCH (22:25)
[2019-10-06] MEDS: BLOOD SUGAR DIAGNOSTIC 1 EACH STRIP IN SCH ×4 (00:07→17:32)
[2019-10-06] MEDS: INSULIN ASPART/LISPRO 100 UNIT/ML CARTRIDGE SQ PRN ×3 (00:08→17:29)
[2019-10-06] MEDS: ALBUTEROL FS 2.5 MG/0.5 ML VIAL.NEB NEB SCH ×4 (00:53→19:50)
[2019-10-06] MEDS: IPRATROPIUM NEB FS 0.5 MG/2.5 ML AMPUL.NEB NEB SCH ×4 (00:53→19:50)
[2019-10-06] MEDS: hydrALAZINE HCL 25 MG TABLET GT SCH ×3 (05:19→20:56)
[2019-10-06] MEDS: METOCLOPRAMIDE HCL 10 MG TABLET GT SCH ×3 (05:19→20:58)
[2019-10-06] MEDS: CLONIDINE HCL 0.1 MG TABLET GT SCH ×3 (05:19→20:57)
[2019-10-06] MEDS: LABETALOL HCL (100MG) 100 MG TABLET GT SCH ×3 (05:20→20:59)
[2019-10-06 05:22] LABS: OCCULT BLOOD STOOL NEGATIVE (NEGATIVE)
[2019-10-06 07:28] VITALS: BP 161/82
[2019-10-06 07:30] LABS: BASOPHILS # (AUTO) 0.1 /CMM (0.0-0.2); BASOPHILS % (AUTO) 0.8 % (0.0-2.0); EOSINOPHILS % (AUTO) 6.2 % (0.0-6.0); HEMATOCRIT 28 % (39-51); HEMOGLOBIN 9.4 g/dL (13.5-17.5); LYMPHOCYTES # (AUTO) 1.3 /CMM (0.8-4.8); LYMPHOCYTES % (AUTO) 18.1 % (20.0-44.0); MEAN CORPUSCULAR HGB CONC 33 g/dl (31.0-36.0); MEAN CORPUSCULAR VOLUME 91 fL (80-96); NEUTROPHILS # (AUTO) 4.3 /CMM (1.8-8.9); NEUTROPHILS % (AUTO) 60.9 % (43.0-81.0); PLATELET COUNT (AUTO) 205 /CMM (150-450); RED BLOOD CELL COUNT(AUTO) 3.11 MIL/uL (4.5-6.0); WHITE BLOOD COUNT (AUTO) 7.1 K/uL (4.3-11.0)
[2019-10-06 07:39] LABS: CALCIUM, SERUM 9.4 mg/dL (8.5-10.1); CREATININE 2.6 mg/dL (0.6-1.3); MAGNESIUM 2.5 mg/dL (1.8-2.4); PHOSPHORUS 4.4 mg/dL (2.5-4.9); POTASSIUM 5.3 mmol/L (3.5-5.1)
--- NOTE | 2019-10-06 08:12 | NUR ---
Spoke with Miguel answering service and requested to page Dr. Valles to relay CBC, BMP (Creatinine 2.6. K+5.3), Mg and Phos result and to reevaluate current BP meds per pharmacy recommendations. Awaiting for return call.
[2019-10-06] MEDS: LEVETIRACETAM SOL (5 ML) 100 MG/ML UDC GT SCH ×2 (09:08→20:58)
[2019-10-06] MEDS: ISOSORBIDE DINITRATE (20MG) 20 MG TABLET GT SCH ×3 (09:08→17:32)
[2019-10-06] MEDS: LACTOBACILLUS RHAMNOSUS GG 1 EACH CAP.SPRINK GT SCH ×2 (09:08→17:32)
[2019-10-06] MEDS: DOCUSATE SODIUM LIQ 100 MG/10 ML UDC GT SCH ×2 (09:08→20:58)
[2019-10-06] MEDS: SPIRONOLACTONE 50 MG TABLET GT SCH (09:08)
[2019-10-06] MEDS: SITAGLIPTIN PHOSPHATE 50 MG TABLET GT SCH (09:08)
[2019-10-06] MEDS: FERROUS SULFATE UDC 300 MG/5 ML UDC GT SCH (09:08)
[2019-10-06] MEDS: AMLODIPINE BESYLATE 10 MG TABLET GT SCH (09:09)
[2019-10-06] MEDS: MINOXIDIL (2.5MG) 2.5 MG TABLET GT SCH (09:09)
[2019-10-06] MEDS: VIT B CMPLX 3/FA/VIT C/BIOTIN 1 TAB TABLET GT SCH (09:09)
[2019-10-06] MEDS: PROSOURCE / PROSTAT (PYXIS) 30 ML UDC GT SCH ×2 (09:09→20:58)
[2019-10-06] MEDS: ACETAMINOPHEN 650 MG/20 ML UDC- SA PATIENTS-PAIN ONLY GT SCH (09:09)
[2019-10-06] MEDS: FAMOTIDINE (20 MG) 20 MG TABLET GT SCH (09:09)
[2019-10-06] MEDS: CHLORHEXIDINE GLUCONATE 15 ML UDC MM SCH (09:09)
[2019-10-06] MEDS: INSULIN GLARGINE SQ SCH ×2 (09:10→21:38)
[2019-10-06] MEDS: BASAGLAR SQ SCH ×2 (09:10→21:38)
[2019-10-06] MEDS: MINERAL OIL/PETROL OINT 396 GM JAR TP SCH ×2 (09:45→20:59)
[2019-10-06] MEDS: Z GUARD REMEDY 4 OZ OINT TP SCH ×2 (09:46→20:59)
[2019-10-06] MEDS: NEOMY SULF/BACITRAC ZN/POLY 15 GM TUBE TP SCH ×2 (09:46→20:59)
--- NOTE | 2019-10-06 10:44 | NUR ---
told this nurse on his way to ICU, "Please don't call me, it's 8 o clock in the morning, you know I am going to make rounds", reminded to review patient's lab result and hypertensive medication per pharmacy's request. He nodded and walked away.
[2019-10-06] MEDS ORDERED: FUROSEMIDE 40 MG TABLET GT ONE (11:00)
[2019-10-06] MEDS ORDERED: DOXAZOSIN MESYLATE (4 MG) 4 MG TABLET GT SCH (11:00)
--- NOTE | 2019-10-06 11:17 | NUR ---
Noted an order from Dr. Valles to [place] Spironolactone, Lasix 40mg. /GT x 1 and Doxazosin Mesylate change to 4 mg via GT to BID. Orders faxed to [facility] and [facility] pharmacy.
[2019-10-06] MEDS: HYDROGEN PEROXIDE 480 ML BOTTLE TP SCH ×2 (13:55→20:11)
--- NOTE | 2019-10-06 16:01 | NUR ---
PATIENT REMAINS STABLE ON ORDERED MODALITIES ILTZY WELL. CONT CURRENT PLAN OF CARE. Addendum: 10/06/19 at 1601 by SUMA NICHOLAS RT Amended: Links added.
[2019-10-06] MEDS: NEPRO 1,000 ML BOTTLE GT PRN (17:32)
--- NOTE | 2019-10-06 20:10 | NUR ---
PT RCVD TRACH'D ON COOL AEROSOL WITH CHARTED SETTINGS. PT LITZY TX WELL. SX DONE. PT TRACH IS PATENT AND SECURE. AMBU BAG AT BEDSIDE. NO SOB NOTED. Addendum: 10/06/19 at 2010 by LAST TIRADO RT Amended: Links added.
[2019-10-06 20:41] VITALS: BP 172/78
[2019-10-06] MEDS: DOXAZOSIN MESYLATE (4 MG) 4 MG TABLET GT SCH (21:06)
[2019-10-06] MEDS: SENNOSIDES 8.6 MG TABLET GT SCH (21:39)
[2019-10-07] MEDS: BLOOD SUGAR DIAGNOSTIC 1 EACH STRIP IN SCH ×4 (00:25→17:28)
[2019-10-07] MEDS: INSULIN ASPART/LISPRO 100 UNIT/ML CARTRIDGE SQ PRN ×4 (00:26→17:27)
[2019-10-07] MEDS: ALBUTEROL FS 2.5 MG/0.5 ML VIAL.NEB NEB SCH ×4 (00:35→19:41)
[2019-10-07] MEDS: IPRATROPIUM NEB FS 0.5 MG/2.5 ML AMPUL.NEB NEB SCH ×4 (00:35→19:41)
[2019-10-07] MEDS: hydrALAZINE HCL 25 MG TABLET GT SCH ×3 (05:16→20:54)
[2019-10-07] MEDS: LABETALOL HCL (100MG) 100 MG TABLET GT SCH ×3 (05:17→20:55)
[2019-10-07] MEDS: CLONIDINE HCL 0.1 MG TABLET GT SCH ×3 (05:17→20:54)
[2019-10-07] MEDS: METOCLOPRAMIDE HCL 10 MG TABLET GT SCH ×3 (05:17→20:54)
[2019-10-07 06:56] LABS: BASOPHILS % (AUTO) 0.7 % (0.0-2.0); EOSINOPHILS % (AUTO) 5.7 % (0.0-6.0); HEMATOCRIT 26 % (39-51); LYMPHOCYTES # (AUTO) 1.3 /CMM (0.8-4.8); LYMPHOCYTES % (AUTO) 20.3 % (20.0-44.0); MEAN CORPUSCULAR HGB CONC 34 g/dl (31.0-36.0); MEAN CORPUSCULAR VOLUME 91 fL (80-96); MONOCYTES # (AUTO) 0.9 /CMM (0.1-1.30); MONOCYTES % (AUTO) 13.5 % (2.0-12.0); NEUTROPHILS # (AUTO) 3.9 /CMM (1.8-8.9); NEUTROPHILS % (AUTO) 59.8 % (43.0-81.0); PLATELET COUNT (AUTO) 196 /CMM (150-450); RED BLOOD CELL COUNT(AUTO) 2.88 MIL/uL (4.5-6.0); WHITE BLOOD COUNT (AUTO) 6.6 K/uL (4.3-11.0)
[2019-10-07 07:13] LABS: CALCIUM, SERUM 9.2 mg/dL (8.5-10.1); CREATININE 2.4 mg/dL (0.6-1.3); MAGNESIUM 2.7 mg/dL (1.8-2.4); PHOSPHORUS 4.2 mg/dL (2.5-4.9)
[2019-10-07 07:47] VITALS: BP 130/64
[2019-10-07] MEDS: HYDROGEN PEROXIDE 480 ML BOTTLE TP SCH ×2 (07:59→21:08)
[2019-10-07] MEDS: Z GUARD REMEDY 4 OZ OINT TP SCH ×2 (09:00→20:56)
[2019-10-07] MEDS: NEOMY SULF/BACITRAC ZN/POLY 15 GM TUBE TP SCH ×2 (09:00→20:56)
[2019-10-07] MEDS: MINERAL OIL/PETROL OINT 396 GM JAR TP SCH ×2 (09:00→20:56)
[2019-10-07] MEDS: FERROUS SULFATE UDC 300 MG/5 ML UDC GT SCH (09:58)
[2019-10-07] MEDS: DOCUSATE SODIUM LIQ 100 MG/10 ML UDC GT SCH ×2 (09:58→20:54)
[2019-10-07] MEDS: LACTOBACILLUS RHAMNOSUS GG 1 EACH CAP.SPRINK GT SCH ×2 (09:58→17:28)
[2019-10-07] MEDS: DOXAZOSIN MESYLATE (4 MG) 4 MG TABLET GT SCH ×2 (09:58→20:54)
[2019-10-07] MEDS: FAMOTIDINE (20 MG) 20 MG TABLET GT SCH (09:59)
[2019-10-07] MEDS: VIT B CMPLX 3/FA/VIT C/BIOTIN 1 TAB TABLET GT SCH (09:59)
[2019-10-07] MEDS: SITAGLIPTIN PHOSPHATE 50 MG TABLET GT SCH (09:59)
[2019-10-07] MEDS: CHLORHEXIDINE GLUCONATE 15 ML UDC MM SCH (09:59)
[2019-10-07] MEDS: AMLODIPINE BESYLATE 10 MG TABLET GT SCH (09:59)
[2019-10-07] MEDS: ISOSORBIDE DINITRATE (20MG) 20 MG TABLET GT SCH ×3 (09:59→17:28)
[2019-10-07] MEDS: ACETAMINOPHEN 650 MG/20 ML UDC- SA PATIENTS-PAIN ONLY GT SCH (09:59)
[2019-10-07] MEDS: PROSOURCE / PROSTAT (PYXIS) 30 ML UDC GT SCH ×2 (09:59→20:54)
[2019-10-07] MEDS: MINOXIDIL (2.5MG) 2.5 MG TABLET GT SCH (09:59)
[2019-10-07] MEDS: LEVETIRACETAM SOL (5 ML) 100 MG/ML UDC GT SCH ×2 (09:59→20:54)
[2019-10-07] MEDS: BASAGLAR SQ SCH ×2 (10:00→20:56)
[2019-10-07] MEDS: INSULIN GLARGINE SQ SCH ×2 (10:00→20:56)
--- NOTE | 2019-10-07 15:33 | NUR ---
RT NOTE: RECEIVED PT ON 28% C/A. NO RESPIRATORY DISTRESS NOTED. TRACH CHECKED SECURE AND PATENT. SXD AND LAVAGED PT Q ROUND AND NEEDED. TXS GIVEN ORDERED WITH NO ADVERSE REACTIONS NOTED. TRACH CARE DONE. SPARE TRACH AND AMBU BAG @ BEDSIDE.
[2019-10-07] MEDS: NEPRO 1,000 ML BOTTLE GT PRN (15:34)
--- NOTE | 2019-10-07 16:22 | NUR ---
INTERDISCIPLINARY PLAN OF CARE CONFERENCE took place today. The patients responsible republican/ Keith Holloways [phone] was not able to attend or participate via phone conference. Charge nurse discussed pt. is on diabetic diet, has a blister on R Axila and Tx; pt. is on bowel and bladder training. Dr. Braun and Interdisciplinary team discussed the plan of care in detail. Current orders as well as treatments and medications were reviewed.Please see other disciplines IDT notes for further details.
[2019-10-07] MEDS: SENNOSIDES 8.6 MG TABLET GT SCH (21:48)
[2019-10-08] MEDS: BLOOD SUGAR DIAGNOSTIC 1 EACH STRIP IN SCH ×4 (00:01→18:01)
[2019-10-08] MEDS: INSULIN ASPART/LISPRO 100 UNIT/ML CARTRIDGE SQ PRN ×3 (00:01→18:03)
[2019-10-08] MEDS: IPRATROPIUM NEB FS 0.5 MG/2.5 ML AMPUL.NEB NEB SCH ×4 (01:52→19:37)
[2019-10-08] MEDS: ALBUTEROL FS 2.5 MG/0.5 ML VIAL.NEB NEB SCH ×4 (01:52→19:37)
[2019-10-08] MEDS: LABETALOL HCL (100MG) 100 MG TABLET GT SCH ×3 (05:41→21:00)
[2019-10-08] MEDS: CLONIDINE HCL 0.1 MG TABLET GT SCH ×3 (05:41→21:00)
[2019-10-08] MEDS: hydrALAZINE HCL 25 MG TABLET GT SCH ×3 (05:41→21:00)
[2019-10-08] MEDS: METOCLOPRAMIDE HCL 10 MG TABLET GT SCH ×3 (05:41→21:00)
[2019-10-08 08:00] VITALS: BP 146/79
[2019-10-08] MEDS: BASAGLAR SQ SCH ×2 (09:00→21:00)
[2019-10-08] MEDS: DOCUSATE SODIUM LIQ 100 MG/10 ML UDC GT SCH ×2 (09:00→21:00)
[2019-10-08] MEDS: PROSOURCE / PROSTAT (PYXIS) 30 ML UDC GT SCH ×2 (09:00→21:00)
[2019-10-08] MEDS: CHLORHEXIDINE GLUCONATE 15 ML UDC MM SCH (09:00)
[2019-10-08] MEDS: INSULIN GLARGINE SQ SCH ×2 (09:00→21:00)
[2019-10-08] MEDS: VIT B CMPLX 3/FA/VIT C/BIOTIN 1 TAB TABLET GT SCH (09:00)
[2019-10-08] MEDS: ISOSORBIDE DINITRATE (20MG) 20 MG TABLET GT SCH ×3 (09:00→17:00)
[2019-10-08] MEDS: MINOXIDIL (2.5MG) 2.5 MG TABLET GT SCH (09:00)
[2019-10-08] MEDS: FERROUS SULFATE UDC 300 MG/5 ML UDC GT SCH (09:00)
[2019-10-08] MEDS: LEVETIRACETAM SOL (5 ML) 100 MG/ML UDC GT SCH ×2 (09:00→21:00)
[2019-10-08] MEDS: FAMOTIDINE (20 MG) 20 MG TABLET GT SCH (09:00)
[2019-10-08] MEDS: LACTOBACILLUS RHAMNOSUS GG 1 EACH CAP.SPRINK GT SCH ×2 (09:00→17:00)
[2019-10-08] MEDS: SITAGLIPTIN PHOSPHATE 50 MG TABLET GT SCH (09:00)
[2019-10-08] MEDS: AMLODIPINE BESYLATE 10 MG TABLET GT SCH (09:00)
[2019-10-08] MEDS: HYDROGEN PEROXIDE 480 ML BOTTLE TP SCH ×2 (09:00→21:00)
[2019-10-08] MEDS: DOXAZOSIN MESYLATE (4 MG) 4 MG TABLET GT SCH ×2 (09:00→21:00)
[2019-10-08] MEDS: ACETAMINOPHEN 650 MG/20 ML UDC- SA PATIENTS-PAIN ONLY GT SCH (10:00)
[2019-10-08] MEDS: Z GUARD REMEDY 4 OZ OINT TP SCH ×2 (10:30→21:00)
[2019-10-08] MEDS: MINERAL OIL/PETROL OINT 396 GM JAR TP SCH ×2 (10:30→21:00)
[2019-10-08] MEDS: NEOMY SULF/BACITRAC ZN/POLY 15 GM TUBE TP SCH (10:30)
[2019-10-08] MEDS: BISACODYL SUPP (10 MG) 10 MG/SUPP.RECT SUPP.RECT RC PRN (16:31)
[2019-10-08] MEDS: NEPRO 1,000 ML BOTTLE GT PRN (18:03)
[2019-10-08] MEDS: SENNOSIDES 8.6 MG TABLET GT SCH (22:46)
[2019-10-09] MEDS: BLOOD SUGAR DIAGNOSTIC 1 EACH STRIP IN SCH ×5 (00:07→23:35)
[2019-10-09] MEDS: INSULIN ASPART/LISPRO 100 UNIT/ML CARTRIDGE SQ PRN ×4 (00:09→18:01)
[2019-10-09] MEDS: IPRATROPIUM NEB FS 0.5 MG/2.5 ML AMPUL.NEB NEB SCH ×4 (01:34→19:41)
[2019-10-09] MEDS: ALBUTEROL FS 2.5 MG/0.5 ML VIAL.NEB NEB SCH ×4 (01:34→19:41)
[2019-10-09] MEDS: LABETALOL HCL (100MG) 100 MG TABLET GT SCH ×3 (05:00→20:51)
[2019-10-09] MEDS: CLONIDINE HCL 0.1 MG TABLET GT SCH ×3 (05:00→20:50)
[2019-10-09] MEDS: hydrALAZINE HCL 25 MG TABLET GT SCH ×3 (05:00→20:49)
[2019-10-09] MEDS: METOCLOPRAMIDE HCL 10 MG TABLET GT SCH ×3 (05:00→20:51)
[2019-10-09 07:45] VITALS: BP 148/79
[2019-10-09] MEDS: HYDROGEN PEROXIDE 480 ML BOTTLE TP SCH ×2 (08:11→20:53)
[2019-10-09] MEDS: DOXAZOSIN MESYLATE (4 MG) 4 MG TABLET GT SCH ×2 (08:56→20:49)
[2019-10-09] MEDS: DOCUSATE SODIUM LIQ 100 MG/10 ML UDC GT SCH ×2 (08:57→20:54)
[2019-10-09] MEDS: FERROUS SULFATE UDC 300 MG/5 ML UDC GT SCH (08:57)
[2019-10-09] MEDS: SITAGLIPTIN PHOSPHATE 50 MG TABLET GT SCH (08:58)
[2019-10-09] MEDS: ISOSORBIDE DINITRATE (20MG) 20 MG TABLET GT SCH ×3 (08:58→16:44)
[2019-10-09] MEDS: LEVETIRACETAM SOL (5 ML) 100 MG/ML UDC GT SCH ×2 (08:59→20:52)
[2019-10-09] MEDS: MINOXIDIL (2.5MG) 2.5 MG TABLET GT SCH (08:59)
[2019-10-09] MEDS: FAMOTIDINE (20 MG) 20 MG TABLET GT SCH (09:00)
[2019-10-09] MEDS: PROSOURCE / PROSTAT (PYXIS) 30 ML UDC GT SCH ×2 (09:00→20:54)
[2019-10-09] MEDS: CHLORHEXIDINE GLUCONATE 15 ML UDC MM SCH (09:01)
[2019-10-09] MEDS: AMLODIPINE BESYLATE 10 MG TABLET GT SCH (09:01)
[2019-10-09] MEDS: MINERAL OIL/PETROL OINT 396 GM JAR TP SCH ×2 (09:01→20:53)
[2019-10-09] MEDS: ACETAMINOPHEN 650 MG/20 ML UDC- SA PATIENTS-PAIN ONLY GT SCH (09:01)
[2019-10-09] MEDS: Z GUARD REMEDY 4 OZ OINT TP SCH ×2 (09:02→20:53)
[2019-10-09] MEDS: LACTOBACILLUS RHAMNOSUS GG 1 EACH CAP.SPRINK GT SCH ×2 (09:03→16:44)
[2019-10-09] MEDS: VIT B CMPLX 3/FA/VIT C/BIOTIN 1 TAB TABLET GT SCH (09:03)
[2019-10-09] MEDS: INSULIN GLARGINE SQ SCH ×2 (09:07→21:50)
[2019-10-09] MEDS: BASAGLAR SQ SCH ×2 (09:07→21:50)
[2019-10-09 11:54] LABS: OCCULT BLOOD STOOL NEGATIVE (NEGATIVE)
[2019-10-09 19:55] VITALS: BP 136/72
[2019-10-09] MEDS: SENNOSIDES 8.6 MG TABLET GT SCH (21:03)
--- NOTE | 2019-10-09 21:50 | NUR ---
SUBACUTE RN NOTE: PATIENT BLOOD SUGAR LEVEL 125MG/DL, PATIENT TO RECEIVE LANTUS 15 UNITS PER MD ORDER AND NO INSULIN PER SLIDING SCALE. NO S/S OF HYPER/HYPOGLYCEMIA NOTED, G-TUBE FEEDING RUNNING. WILL CONTINUE TO MONITOR.
[2019-10-10] MEDS: ALBUTEROL FS 2.5 MG/0.5 ML VIAL.NEB NEB SCH ×4 (00:35→19:48)
[2019-10-10] MEDS: IPRATROPIUM NEB FS 0.5 MG/2.5 ML AMPUL.NEB NEB SCH ×4 (00:35→19:48)
[2019-10-10] MEDS: hydrALAZINE HCL 25 MG TABLET GT SCH ×3 (05:44→21:40)
[2019-10-10] MEDS: CLONIDINE HCL 0.1 MG TABLET GT SCH ×3 (05:45→21:41)
[2019-10-10] MEDS: METOCLOPRAMIDE HCL 10 MG TABLET GT SCH ×3 (05:46→21:41)
[2019-10-10] MEDS: BLOOD SUGAR DIAGNOSTIC 1 EACH STRIP IN SCH ×3 (05:46→17:08)
[2019-10-10] MEDS: LABETALOL HCL (100MG) 100 MG TABLET GT SCH ×3 (05:46→21:41)
--- NOTE | 2019-10-10 06:00 | NUR ---
SUBACUTE RN NOTE: PATIENT BLOOD SUGAR LEVEL 110MG/DL, NO INSULIN NEEDED PER SLIDING SCALE. NO S/S OF HYPER/HYPOGLYCEMIA NOTED. WILL CONTINUE TO MONITOR.
[2019-10-10] MEDS: NEPRO 1,000 ML BOTTLE GT PRN (06:25)
[2019-10-10 08:07] VITALS: BP 149/80
[2019-10-10] MEDS: MINERAL OIL/PETROL OINT 396 GM JAR TP SCH ×2 (09:00→21:42)
[2019-10-10] MEDS: FAMOTIDINE (20 MG) 20 MG TABLET GT SCH (09:00)
[2019-10-10] MEDS: DOCUSATE SODIUM LIQ 100 MG/10 ML UDC GT SCH ×2 (09:00→21:41)
[2019-10-10] MEDS: SITAGLIPTIN PHOSPHATE 50 MG TABLET GT SCH (09:00)
[2019-10-10] MEDS: PROSOURCE / PROSTAT (PYXIS) 30 ML UDC GT SCH ×2 (09:00→21:41)
[2019-10-10] MEDS: DOXAZOSIN MESYLATE (4 MG) 4 MG TABLET GT SCH ×2 (09:00→21:40)
[2019-10-10] MEDS: AMLODIPINE BESYLATE 10 MG TABLET GT SCH (09:00)
[2019-10-10] MEDS: VIT B CMPLX 3/FA/VIT C/BIOTIN 1 TAB TABLET GT SCH (09:00)
[2019-10-10] MEDS: LACTOBACILLUS RHAMNOSUS GG 1 EACH CAP.SPRINK GT SCH ×2 (09:00→16:47)
[2019-10-10] MEDS: INSULIN GLARGINE SQ SCH ×2 (09:00→21:41)
[2019-10-10] MEDS: LEVETIRACETAM SOL (5 ML) 100 MG/ML UDC GT SCH ×2 (09:00→21:41)
[2019-10-10] MEDS: ISOSORBIDE DINITRATE (20MG) 20 MG TABLET GT SCH ×3 (09:00→16:48)
[2019-10-10] MEDS: FERROUS SULFATE UDC 300 MG/5 ML UDC GT SCH (09:00)
[2019-10-10] MEDS: HYDROGEN PEROXIDE 480 ML BOTTLE TP SCH ×2 (09:00→21:11)
[2019-10-10] MEDS: MINOXIDIL (2.5MG) 2.5 MG TABLET GT SCH (09:00)
[2019-10-10] MEDS: Z GUARD REMEDY 4 OZ OINT TP SCH ×2 (09:00→21:42)
[2019-10-10] MEDS: BASAGLAR SQ SCH ×2 (09:00→21:41)
[2019-10-10] MEDS: CHLORHEXIDINE GLUCONATE 15 ML UDC MM SCH (09:00)
[2019-10-10] MEDS: ACETAMINOPHEN 650 MG/20 ML UDC- SA PATIENTS-PAIN ONLY GT SCH (10:20)
[2019-10-10] MEDS: INSULIN ASPART/LISPRO 100 UNIT/ML CARTRIDGE SQ PRN ×2 (13:33→17:09)
--- NOTE | 2019-10-10 21:34 | NUR ---
PT RECEIVE STABLE ON 28% FIO2 VIA T MASK, TRACH PATENT AND SECURED, LEANN HADDAD AND JOCELIN BAG IS AT BEDSIDE, WILL CONTINUE TO MONITOR Addendum: 10/10/19 at 2135 by GILBERT ROGERS RT Amended: Links added.
[2019-10-10] MEDS: SENNOSIDES 8.6 MG TABLET GT SCH (21:42)
[2019-10-11] MEDS: BLOOD SUGAR DIAGNOSTIC 1 EACH STRIP IN SCH ×4 (00:34→17:58)
[2019-10-11] MEDS: INSULIN ASPART/LISPRO 100 UNIT/ML CARTRIDGE SQ PRN ×2 (00:35→18:15)
[2019-10-11] MEDS: IPRATROPIUM NEB FS 0.5 MG/2.5 ML AMPUL.NEB NEB SCH ×4 (01:22→20:07)
[2019-10-11] MEDS: ALBUTEROL FS 2.5 MG/0.5 ML VIAL.NEB NEB SCH ×4 (01:22→20:07)
[2019-10-11] MEDS: hydrALAZINE HCL 25 MG TABLET GT SCH ×3 (05:50→21:34)
[2019-10-11] MEDS: LABETALOL HCL (100MG) 100 MG TABLET GT SCH ×3 (05:50→21:35)
[2019-10-11] MEDS: CLONIDINE HCL 0.1 MG TABLET GT SCH ×3 (05:50→21:34)
[2019-10-11] MEDS: METOCLOPRAMIDE HCL 10 MG TABLET GT SCH ×3 (05:50→21:35)
[2019-10-11 06:48] VITALS: BP 141/60
[2019-10-11 07:15] LABS: BASOPHILS % (AUTO) 0.4 % (0.0-2.0); EOSINOPHILS % (AUTO) 5.2 % (0.0-6.0); HEMATOCRIT 29 % (39-51); LYMPHOCYTES # (AUTO) 1.2 /CMM (0.8-4.8); LYMPHOCYTES % (AUTO) 13.7 % (20.0-44.0); MEAN CORPUSCULAR HGB CONC 34 g/dl (31.0-36.0); MEAN CORPUSCULAR VOLUME 90 fL (80-96); MONOCYTES # (AUTO) 1.4 /CMM (0.1-1.30); NEUTROPHILS # (AUTO) 5.9 /CMM (1.8-8.9); NEUTROPHILS % (AUTO) 65.2 % (43.0-81.0); PLATELET COUNT (AUTO) 217 /CMM (150-450); RED BLOOD CELL COUNT(AUTO) 3.24 MIL/uL (4.5-6.0)
[2019-10-11 07:20] LABS: MONOCYTES % (AUTO) 15.5 % (2.0-12.0)
[2019-10-11 07:21] LABS: ALBUMIN 2.9 g/dL (3.4-5.0); BILIRUBIN,TOTAL 0.2 mg/dL (0.2-1.0); CALCIUM, SERUM 9.4 mg/dL (8.5-10.1); CREATININE 2.5 mg/dL (0.6-1.3); MAGNESIUM 2.3 mg/dL (1.8-2.4); PHOSPHORUS 4.3 mg/dL (2.5-4.9); POTASSIUM 4.7 mmol/L (3.5-5.1); TOTAL PROTEIN, SERUM 7.5 g/dL (6.4-8.2)
[2019-10-11 07:28] VITALS: BP 139/78
[2019-10-11 08:10] LABS: NEUTROPHILS % (MANUAL) 59 (42-76)
[2019-10-11 08:11] LABS: EOSINOPHILS % (MANUAL) 1 % (0-4); LYMPHOCYTES % (MANUAL) 24 % (16-48); MONOCYTES % (MANUAL) 16 % (0-11.0)
[2019-10-11] MEDS: LEVETIRACETAM SOL (5 ML) 100 MG/ML UDC GT SCH ×2 (08:47→21:34)
[2019-10-11] MEDS: SITAGLIPTIN PHOSPHATE 50 MG TABLET GT SCH (08:47)
[2019-10-11] MEDS: FERROUS SULFATE UDC 300 MG/5 ML UDC GT SCH (08:48)
[2019-10-11] MEDS: AMLODIPINE BESYLATE 10 MG TABLET GT SCH (08:48)
[2019-10-11] MEDS: ISOSORBIDE DINITRATE (20MG) 20 MG TABLET GT SCH ×3 (08:48→16:46)
[2019-10-11] MEDS: PROSOURCE / PROSTAT (PYXIS) 30 ML UDC GT SCH ×2 (08:48→21:34)
[2019-10-11] MEDS: DOXAZOSIN MESYLATE (4 MG) 4 MG TABLET GT SCH ×2 (08:48→21:34)
[2019-10-11] MEDS: DOCUSATE SODIUM LIQ 100 MG/10 ML UDC GT SCH ×2 (08:48→21:34)
[2019-10-11] MEDS: ACETAMINOPHEN 650 MG/20 ML UDC- SA PATIENTS-PAIN ONLY GT SCH (08:49)
[2019-10-11] MEDS: FAMOTIDINE (20 MG) 20 MG TABLET GT SCH (08:53)
[2019-10-11] MEDS: LACTOBACILLUS RHAMNOSUS GG 1 EACH CAP.SPRINK GT SCH ×2 (08:53→16:46)
[2019-10-11] MEDS: VIT B CMPLX 3/FA/VIT C/BIOTIN 1 TAB TABLET GT SCH (08:55)
[2019-10-11] MEDS: MINOXIDIL (2.5MG) 2.5 MG TABLET GT SCH (08:58)
[2019-10-11] MEDS: HYDROGEN PEROXIDE 480 ML BOTTLE TP SCH ×2 (09:00→20:23)
[2019-10-11] MEDS: BASAGLAR SQ SCH ×2 (09:27→21:36)
[2019-10-11] MEDS: INSULIN GLARGINE SQ SCH ×2 (09:27→21:36)
[2019-10-11] MEDS: Z GUARD REMEDY 4 OZ OINT TP SCH ×2 (09:45→21:36)
[2019-10-11] MEDS: MINERAL OIL/PETROL OINT 396 GM JAR TP SCH ×2 (09:45→21:36)
[2019-10-11] MEDS: CHLORHEXIDINE GLUCONATE 15 ML UDC MM SCH (10:50)
[2019-10-11] MEDS: NEPRO 1,000 ML BOTTLE GT PRN (14:32)
--- NOTE | 2019-10-11 16:23 | NUR ---
Received order to decrease tube feeding Nepro from 50 mL/hr to 45 mL/hr to encourage increased po meal intake. Also received order to DC Prostat.
--- NOTE | 2019-10-11 20:33 | NUR ---
PT RCVD TRACH'D ON COOL AEROSOL WITH CHARTED SETTINGS. PT LITZY TX WELL. SX DONE. PT TRACH IS PATENT AND SECURE. AMBU BAG AT BEDSIDE. NO SOB NOTED. Addendum: 10/11/19 at 2032 by LAST TIRADO RT Amended: Links added.
[2019-10-11 20:49] VITALS: BP 114/60
[2019-10-11] MEDS: SENNOSIDES 8.6 MG TABLET GT SCH (21:36)
[2019-10-12] MEDS: BLOOD SUGAR DIAGNOSTIC 1 EACH STRIP IN SCH ×4 (00:22→17:54)
[2019-10-12] MEDS: ALBUTEROL FS 2.5 MG/0.5 ML VIAL.NEB NEB SCH ×4 (01:03→19:59)
[2019-10-12] MEDS: IPRATROPIUM NEB FS 0.5 MG/2.5 ML AMPUL.NEB NEB SCH ×4 (01:03→19:59)
[2019-10-12] MEDS: hydrALAZINE HCL 25 MG TABLET GT SCH ×3 (05:51→21:34)
[2019-10-12] MEDS: CLONIDINE HCL 0.1 MG TABLET GT SCH ×3 (05:51→21:34)
[2019-10-12] MEDS: METOCLOPRAMIDE HCL 10 MG TABLET GT SCH ×3 (05:52→21:34)
[2019-10-12] MEDS: LABETALOL HCL (100MG) 100 MG TABLET GT SCH ×3 (05:52→21:35)
[2019-10-12 08:00] VITALS: BP 133/75
[2019-10-12] MEDS: LACTOBACILLUS RHAMNOSUS GG 1 EACH CAP.SPRINK GT SCH ×2 (09:32→17:53)
[2019-10-12] MEDS: DOXAZOSIN MESYLATE (4 MG) 4 MG TABLET GT SCH ×2 (09:32→21:34)
[2019-10-12] MEDS: DOCUSATE SODIUM LIQ 100 MG/10 ML UDC GT SCH ×2 (09:32→21:34)
[2019-10-12] MEDS: LEVETIRACETAM SOL (5 ML) 100 MG/ML UDC GT SCH ×2 (09:33→21:34)
[2019-10-12] MEDS: FERROUS SULFATE UDC 300 MG/5 ML UDC GT SCH (09:33)
[2019-10-12] MEDS: ISOSORBIDE DINITRATE (20MG) 20 MG TABLET GT SCH ×3 (09:33→17:53)
[2019-10-12] MEDS: MINOXIDIL (2.5MG) 2.5 MG TABLET GT SCH (09:33)
[2019-10-12] MEDS: VIT B CMPLX 3/FA/VIT C/BIOTIN 1 TAB TABLET GT SCH (09:33)
[2019-10-12] MEDS: SITAGLIPTIN PHOSPHATE 50 MG TABLET GT SCH (09:33)
[2019-10-12] MEDS: AMLODIPINE BESYLATE 10 MG TABLET GT SCH (09:33)
[2019-10-12] MEDS: BASAGLAR SQ SCH ×2 (09:34→21:42)
[2019-10-12] MEDS: ACETAMINOPHEN 650 MG/20 ML UDC- SA PATIENTS-PAIN ONLY GT SCH (09:34)
[2019-10-12] MEDS: FAMOTIDINE (20 MG) 20 MG TABLET GT SCH (09:34)
[2019-10-12] MEDS: INSULIN GLARGINE SQ SCH ×2 (09:34→21:42)
[2019-10-12] MEDS: PROSOURCE / PROSTAT (PYXIS) 30 ML UDC GT SCH ×2 (09:34→21:34)
[2019-10-12] MEDS: CHLORHEXIDINE GLUCONATE 15 ML UDC MM SCH (09:34)
[2019-10-12] MEDS: Z GUARD REMEDY 4 OZ OINT TP SCH ×2 (09:35→21:35)
[2019-10-12] MEDS: MINERAL OIL/PETROL OINT 396 GM JAR TP SCH ×2 (09:35→21:35)
[2019-10-12] MEDS: RETACRIT 10,000 UNITS SQ SCH (11:00)
[2019-10-12] MEDS: INSULIN ASPART/LISPRO 100 UNIT/ML CARTRIDGE SQ PRN ×2 (12:30→17:57)
[2019-10-12] MEDS: HYDROGEN PEROXIDE 480 ML BOTTLE TP SCH ×2 (12:53→21:44)
[2019-10-12 19:49] VITALS: BP 148/70
[2019-10-12] MEDS: SENNOSIDES 8.6 MG TABLET GT SCH (21:35)
--- NOTE | 2019-10-12 21:54 | NUR ---
PT RECEIVE STABLE ON 28% FIO2 C/A VIA T BAR, TRACH PATENT AND SECURED SPARE TRACH AND JOCELIN BAG IS AT BEDSIDE, WILL CONTINUE TO MONITOR Addendum: 10/12/19 at 2154 by GILBERT ROGERS RT Amended: Links added.
[2019-10-13] MEDS: BLOOD SUGAR DIAGNOSTIC 1 EACH STRIP IN SCH ×4 (00:19→18:14)
[2019-10-13] MEDS: INSULIN ASPART/LISPRO 100 UNIT/ML CARTRIDGE SQ PRN ×4 (00:20→22:49)
[2019-10-13] MEDS: IPRATROPIUM NEB FS 0.5 MG/2.5 ML AMPUL.NEB NEB SCH ×4 (01:05→20:15)
[2019-10-13] MEDS: ALBUTEROL FS 2.5 MG/0.5 ML VIAL.NEB NEB SCH ×4 (01:05→20:15)
[2019-10-13 03:46] VITALS: BP 148/70
[2019-10-13] MEDS: hydrALAZINE HCL 25 MG TABLET GT SCH ×3 (05:40→21:16)
[2019-10-13] MEDS: METOCLOPRAMIDE HCL 10 MG TABLET GT SCH ×3 (05:40→21:19)
[2019-10-13] MEDS: CLONIDINE HCL 0.1 MG TABLET GT SCH ×3 (05:40→21:17)
[2019-10-13] MEDS: LABETALOL HCL (100MG) 100 MG TABLET GT SCH ×3 (05:41→21:20)
[2019-10-13 08:04] VITALS: BP 164/87
[2019-10-13] MEDS: HYDROGEN PEROXIDE 480 ML BOTTLE TP SCH ×2 (08:06→20:15)
--- NOTE | 2019-10-13 09:23 | NUR ---
JOELLE contacted the pt.'s uncle, Keith Klein [phone] to inform them about the Family Satisfaction Survey and its purpose. Keith stated that he would greens picker the Survey from JOELLE today upon visiting. JOELLE agreed to plan.
[2019-10-13] MEDS: DOXAZOSIN MESYLATE (4 MG) 4 MG TABLET GT SCH ×2 (09:50→21:16)
[2019-10-13] MEDS: SITAGLIPTIN PHOSPHATE 50 MG TABLET GT SCH (09:50)
[2019-10-13] MEDS: ISOSORBIDE DINITRATE (20MG) 20 MG TABLET GT SCH ×3 (09:50→17:00)
[2019-10-13] MEDS: MINOXIDIL (2.5MG) 2.5 MG TABLET GT SCH (09:50)
[2019-10-13] MEDS: FERROUS SULFATE UDC 300 MG/5 ML UDC GT SCH (09:50)
[2019-10-13] MEDS: VIT B CMPLX 3/FA/VIT C/BIOTIN 1 TAB TABLET GT SCH (09:50)
[2019-10-13] MEDS: LEVETIRACETAM SOL (5 ML) 100 MG/ML UDC GT SCH ×2 (09:50→21:19)
[2019-10-13] MEDS: DOCUSATE SODIUM LIQ 100 MG/10 ML UDC GT SCH ×2 (09:50→21:18)
[2019-10-13] MEDS: LACTOBACILLUS RHAMNOSUS GG 1 EACH CAP.SPRINK GT SCH ×2 (09:50→17:00)
[2019-10-13] MEDS: FAMOTIDINE (20 MG) 20 MG TABLET GT SCH (09:51)
[2019-10-13] MEDS: CHLORHEXIDINE GLUCONATE 15 ML UDC MM SCH (09:51)
[2019-10-13] MEDS: ACETAMINOPHEN 650 MG/20 ML UDC- SA PATIENTS-PAIN ONLY GT SCH (09:51)
[2019-10-13] MEDS: PROSOURCE / PROSTAT (PYXIS) 30 ML UDC GT SCH ×2 (09:51→21:20)
[2019-10-13] MEDS: AMLODIPINE BESYLATE 10 MG TABLET GT SCH (09:51)
[2019-10-13] MEDS: MINERAL OIL/PETROL OINT 396 GM JAR TP SCH ×2 (09:52→21:34)
[2019-10-13] MEDS: BASAGLAR SQ SCH ×2 (09:52→21:00)
[2019-10-13] MEDS: INSULIN GLARGINE SQ SCH ×2 (09:52→21:00)
[2019-10-13] MEDS: Z GUARD REMEDY 4 OZ OINT TP SCH ×2 (09:52→21:34)
--- NOTE | 2019-10-13 12:05 | NUR ---
The pt.s responsible democrat/Uncle, picked up and completed the Patient/ Family Satisfaction survey.
[2019-10-13] MEDS: NEPRO 1,000 ML BOTTLE GT PRN (18:14)
[2019-10-13] MEDS: BISACODYL SUPP (10 MG) 10 MG/SUPP.RECT SUPP.RECT RC PRN (18:43)
[2019-10-13 20:18] VITALS: BP 153/76
--- NOTE | 2019-10-13 20:30 | NUR ---
PT RCVD TRACH'D ON COOL AEROSOL. SX DONE. PT TRACH IS PATENT AND SECURE. BREATHING TX GIVEN , NO ADVERSE REACTION NOTED. AMBU BAG AT BEDSIDE. NO SOB NOTED.
[2019-10-13] MEDS: SENNOSIDES 8.6 MG TABLET GT SCH (21:20)
[2019-10-14] MEDS: BLOOD SUGAR DIAGNOSTIC 1 EACH STRIP IN SCH ×4 (00:07→17:47)
[2019-10-14] MEDS: INSULIN ASPART/LISPRO 100 UNIT/ML CARTRIDGE SQ PRN ×4 (00:08→17:48)
[2019-10-14] MEDS: ALBUTEROL FS 2.5 MG/0.5 ML VIAL.NEB NEB SCH ×4 (01:57→20:07)
[2019-10-14] MEDS: IPRATROPIUM NEB FS 0.5 MG/2.5 ML AMPUL.NEB NEB SCH ×4 (01:57→20:07)
[2019-10-14] MEDS: CLONIDINE HCL 0.1 MG TABLET GT SCH ×3 (05:52→20:33)
[2019-10-14] MEDS: hydrALAZINE HCL 25 MG TABLET GT SCH ×3 (05:52→20:31)
[2019-10-14] MEDS: METOCLOPRAMIDE HCL 10 MG TABLET GT SCH ×3 (05:52→20:35)
[2019-10-14] MEDS: LABETALOL HCL (100MG) 100 MG TABLET GT SCH ×3 (05:52→20:36)
[2019-10-14 08:17] VITALS: BP 155/78
[2019-10-14] MEDS: HYDROGEN PEROXIDE 480 ML BOTTLE TP SCH ×2 (08:58→21:26)
[2019-10-14] MEDS: MINERAL OIL/PETROL OINT 396 GM JAR TP SCH ×2 (09:00→20:36)
[2019-10-14] MEDS: CHLORHEXIDINE GLUCONATE 15 ML UDC MM SCH (09:00)
[2019-10-14] MEDS: MINOXIDIL (2.5MG) 2.5 MG TABLET GT SCH (09:00)
[2019-10-14] MEDS: DOXAZOSIN MESYLATE (4 MG) 4 MG TABLET GT SCH ×2 (09:00→20:32)
[2019-10-14] MEDS: ISOSORBIDE DINITRATE (20MG) 20 MG TABLET GT SCH ×3 (09:00→17:47)
[2019-10-14] MEDS: FAMOTIDINE (20 MG) 20 MG TABLET GT SCH (09:00)
[2019-10-14] MEDS: SITAGLIPTIN PHOSPHATE 50 MG TABLET GT SCH (09:00)
[2019-10-14] MEDS: BASAGLAR SQ SCH ×2 (09:00→20:45)
[2019-10-14] MEDS: LACTOBACILLUS RHAMNOSUS GG 1 EACH CAP.SPRINK GT SCH ×2 (09:00→17:46)
[2019-10-14] MEDS: FERROUS SULFATE UDC 300 MG/5 ML UDC GT SCH (09:00)
[2019-10-14] MEDS: LEVETIRACETAM SOL (5 ML) 100 MG/ML UDC GT SCH ×2 (09:00→20:34)
[2019-10-14] MEDS: DOCUSATE SODIUM LIQ 100 MG/10 ML UDC GT SCH ×2 (09:00→20:34)
[2019-10-14] MEDS: PROSOURCE / PROSTAT (PYXIS) 30 ML UDC GT SCH ×2 (09:00→20:35)
[2019-10-14] MEDS: VIT B CMPLX 3/FA/VIT C/BIOTIN 1 TAB TABLET GT SCH (09:00)
[2019-10-14] MEDS: Z GUARD REMEDY 4 OZ OINT TP SCH ×2 (09:00→20:36)
[2019-10-14] MEDS: AMLODIPINE BESYLATE 10 MG TABLET GT SCH (09:00)
[2019-10-14] MEDS: INSULIN GLARGINE SQ SCH ×2 (09:00→20:45)
[2019-10-14] MEDS: ACETAMINOPHEN 650 MG/20 ML UDC- SA PATIENTS-PAIN ONLY GT SCH (10:00)
[2019-10-14] MEDS: NEPRO 1,000 ML BOTTLE GT PRN (18:23)
[2019-10-14 20:43] VITALS: BP 122/68
[2019-10-14] MEDS: SENNOSIDES 8.6 MG TABLET GT SCH (21:30)
[2019-10-15] MEDS: BLOOD SUGAR DIAGNOSTIC 1 EACH STRIP IN SCH ×4 (00:39→17:37)
[2019-10-15] MEDS: INSULIN ASPART/LISPRO 100 UNIT/ML CARTRIDGE SQ PRN ×3 (00:40→12:57)
[2019-10-15] MEDS: IPRATROPIUM NEB FS 0.5 MG/2.5 ML AMPUL.NEB NEB SCH ×4 (02:14→19:42)
[2019-10-15] MEDS: ALBUTEROL FS 2.5 MG/0.5 ML VIAL.NEB NEB SCH ×4 (02:14→19:42)
[2019-10-15] MEDS: hydrALAZINE HCL 25 MG TABLET GT SCH ×3 (05:37→20:28)
[2019-10-15] MEDS: CLONIDINE HCL 0.1 MG TABLET GT SCH ×3 (05:38→20:29)
[2019-10-15] MEDS: METOCLOPRAMIDE HCL 10 MG TABLET GT SCH ×3 (05:38→20:29)
[2019-10-15] MEDS: LABETALOL HCL (100MG) 100 MG TABLET GT SCH ×3 (05:39→20:29)
[2019-10-15 07:16] VITALS: BP 139/71
[2019-10-15] MEDS: DOXAZOSIN MESYLATE (4 MG) 4 MG TABLET GT SCH ×2 (08:47→20:28)
[2019-10-15] MEDS: DOCUSATE SODIUM LIQ 100 MG/10 ML UDC GT SCH ×2 (08:48→20:29)
[2019-10-15] MEDS: ISOSORBIDE DINITRATE (20MG) 20 MG TABLET GT SCH ×3 (08:48→17:36)
[2019-10-15] MEDS: FERROUS SULFATE UDC 300 MG/5 ML UDC GT SCH (08:48)
[2019-10-15] MEDS: LACTOBACILLUS RHAMNOSUS GG 1 EACH CAP.SPRINK GT SCH ×2 (08:48→17:36)
[2019-10-15] MEDS: MINOXIDIL (2.5MG) 2.5 MG TABLET GT SCH (08:49)
[2019-10-15] MEDS: SITAGLIPTIN PHOSPHATE 50 MG TABLET GT SCH (08:49)
[2019-10-15] MEDS: LEVETIRACETAM SOL (5 ML) 100 MG/ML UDC GT SCH ×2 (08:49→20:29)
[2019-10-15] MEDS: VIT B CMPLX 3/FA/VIT C/BIOTIN 1 TAB TABLET GT SCH (08:50)
[2019-10-15] MEDS: FAMOTIDINE (20 MG) 20 MG TABLET GT SCH (08:51)
[2019-10-15] MEDS: AMLODIPINE BESYLATE 10 MG TABLET GT SCH (08:51)
[2019-10-15] MEDS: PROSOURCE / PROSTAT (PYXIS) 30 ML UDC GT SCH ×2 (08:51→20:29)
[2019-10-15] MEDS: ACETAMINOPHEN 650 MG/20 ML UDC- SA PATIENTS-PAIN ONLY GT SCH (08:52)
[2019-10-15] MEDS: Z GUARD REMEDY 4 OZ OINT TP SCH ×2 (08:53→20:30)
[2019-10-15] MEDS: MINERAL OIL/PETROL OINT 396 GM JAR TP SCH ×2 (08:53→20:30)
[2019-10-15] MEDS: CHLORHEXIDINE GLUCONATE 15 ML UDC MM SCH (08:55)
[2019-10-15] MEDS: HYDROGEN PEROXIDE 480 ML BOTTLE TP SCH ×2 (09:00→20:30)
[2019-10-15] MEDS: INSULIN GLARGINE SQ SCH ×2 (09:46→20:30)
[2019-10-15] MEDS: BASAGLAR SQ SCH ×2 (09:46→20:30)
[2019-10-15 20:02] VITALS: BP 156/75
[2019-10-15] MEDS: SENNOSIDES 8.6 MG TABLET GT SCH (22:00)
[2019-10-16] MEDS: BLOOD SUGAR DIAGNOSTIC 1 EACH STRIP IN SCH ×5 (00:01→23:18)
[2019-10-16] MEDS: INSULIN ASPART/LISPRO 100 UNIT/ML CARTRIDGE SQ PRN ×4 (00:01→17:48)
[2019-10-16] MEDS: NEPRO 1,000 ML BOTTLE GT PRN (00:01)
[2019-10-16] MEDS: ALBUTEROL FS 2.5 MG/0.5 ML VIAL.NEB NEB SCH ×4 (01:34→19:45)
[2019-10-16] MEDS: IPRATROPIUM NEB FS 0.5 MG/2.5 ML AMPUL.NEB NEB SCH ×4 (01:34→19:45)
[2019-10-16] MEDS: CLONIDINE HCL 0.1 MG TABLET GT SCH ×3 (05:06→21:00)
[2019-10-16] MEDS: hydrALAZINE HCL 25 MG TABLET GT SCH ×3 (05:06→21:00)
[2019-10-16] MEDS: METOCLOPRAMIDE HCL 10 MG TABLET GT SCH ×3 (05:06→21:00)
[2019-10-16] MEDS: LABETALOL HCL (100MG) 100 MG TABLET GT SCH ×3 (05:07→21:00)
[2019-10-16 07:34] VITALS: BP 151/73
[2019-10-16] MEDS: DOXAZOSIN MESYLATE (4 MG) 4 MG TABLET GT SCH ×2 (08:59→21:00)
[2019-10-16] MEDS: FERROUS SULFATE UDC 300 MG/5 ML UDC GT SCH (08:59)
[2019-10-16] MEDS: DOCUSATE SODIUM LIQ 100 MG/10 ML UDC GT SCH ×2 (08:59→21:00)
[2019-10-16] MEDS: Z GUARD REMEDY 4 OZ OINT TP SCH ×2 (09:00→21:00)
[2019-10-16] MEDS: HYDROGEN PEROXIDE 480 ML BOTTLE TP SCH ×2 (09:00→21:14)
[2019-10-16] MEDS: ISOSORBIDE DINITRATE (20MG) 20 MG TABLET GT SCH ×3 (09:00→16:46)
[2019-10-16] MEDS: SITAGLIPTIN PHOSPHATE 50 MG TABLET GT SCH (09:01)
[2019-10-16] MEDS: LEVETIRACETAM SOL (5 ML) 100 MG/ML UDC GT SCH ×2 (09:01→21:00)
[2019-10-16] MEDS: AMLODIPINE BESYLATE 10 MG TABLET GT SCH (09:02)
[2019-10-16] MEDS: MINOXIDIL (2.5MG) 2.5 MG TABLET GT SCH (09:02)
[2019-10-16] MEDS: PROSOURCE / PROSTAT (PYXIS) 30 ML UDC GT SCH ×2 (09:02→21:00)
[2019-10-16] MEDS: FAMOTIDINE (20 MG) 20 MG TABLET GT SCH (09:02)
[2019-10-16] MEDS: ACETAMINOPHEN 650 MG/20 ML UDC- SA PATIENTS-PAIN ONLY GT SCH (09:04)
[2019-10-16] MEDS: CHLORHEXIDINE GLUCONATE 15 ML UDC MM SCH (09:04)
[2019-10-16] MEDS: VIT B CMPLX 3/FA/VIT C/BIOTIN 1 TAB TABLET GT SCH (09:07)
[2019-10-16] MEDS: LACTOBACILLUS RHAMNOSUS GG 1 EACH CAP.SPRINK GT SCH ×2 (09:07→16:46)
[2019-10-16] MEDS: MINERAL OIL/PETROL OINT 396 GM JAR TP SCH ×2 (09:17→21:00)
[2019-10-16] MEDS: INSULIN GLARGINE SQ SCH ×2 (09:17→21:00)
[2019-10-16] MEDS: BASAGLAR SQ SCH ×2 (09:17→21:00)
[2019-10-16 19:39] VITALS: BP 150/73
[2019-10-16] MEDS: SENNOSIDES 8.6 MG TABLET GT SCH (22:05)
[2019-10-17] MEDS: IPRATROPIUM NEB FS 0.5 MG/2.5 ML AMPUL.NEB NEB SCH ×4 (01:51→19:06)
[2019-10-17] MEDS: ALBUTEROL FS 2.5 MG/0.5 ML VIAL.NEB NEB SCH ×4 (01:51→19:06)
[2019-10-17] MEDS: BLOOD SUGAR DIAGNOSTIC 1 EACH STRIP IN SCH ×3 (05:49→17:13)
[2019-10-17] MEDS: CLONIDINE HCL 0.1 MG TABLET GT SCH ×3 (05:49→21:46)
[2019-10-17] MEDS: METOCLOPRAMIDE HCL 10 MG TABLET GT SCH ×2 (05:49→12:20)
[2019-10-17] MEDS: hydrALAZINE HCL 25 MG TABLET GT SCH ×3 (05:49→21:46)
[2019-10-17] MEDS: LABETALOL HCL (100MG) 100 MG TABLET GT SCH ×3 (05:49→21:47)
--- NOTE | 2019-10-17 05:51 | NUR ---
RT Patient was received on 28% cool aerosol.Breathing treatment and tracheal suctioning was done. Trach tube patent and secured.Patient stable throughout the shift. Will continue to monitor. Addendum: 10/17/19 at 0551 by ABDULAZIZ FOFANA RT Amended: Links added.
[2019-10-17 08:05] VITALS: BP 152/70
[2019-10-17] MEDS: HYDROGEN PEROXIDE 480 ML BOTTLE TP SCH ×2 (08:07→21:18)
[2019-10-17] MEDS: LEVETIRACETAM SOL (5 ML) 100 MG/ML UDC GT SCH ×2 (09:23→21:46)
[2019-10-17] MEDS: DOXAZOSIN MESYLATE (4 MG) 4 MG TABLET GT SCH ×2 (09:23→21:46)
[2019-10-17] MEDS: FERROUS SULFATE UDC 300 MG/5 ML UDC GT SCH (09:23)
[2019-10-17] MEDS: MINOXIDIL (2.5MG) 2.5 MG TABLET GT SCH (09:23)
[2019-10-17] MEDS: FAMOTIDINE (20 MG) 20 MG TABLET GT SCH (09:23)
[2019-10-17] MEDS: PROSOURCE / PROSTAT (PYXIS) 30 ML UDC GT SCH ×2 (09:23→21:46)
[2019-10-17] MEDS: ISOSORBIDE DINITRATE (20MG) 20 MG TABLET GT SCH ×3 (09:23→17:13)
[2019-10-17] MEDS: DOCUSATE SODIUM LIQ 100 MG/10 ML UDC GT SCH ×2 (09:23→21:46)
[2019-10-17] MEDS: LACTOBACILLUS RHAMNOSUS GG 1 EACH CAP.SPRINK GT SCH ×2 (09:23→17:13)
[2019-10-17] MEDS: SITAGLIPTIN PHOSPHATE 50 MG TABLET GT SCH (09:23)
[2019-10-17] MEDS: VIT B CMPLX 3/FA/VIT C/BIOTIN 1 TAB TABLET GT SCH (09:23)
[2019-10-17] MEDS: AMLODIPINE BESYLATE 10 MG TABLET GT SCH (09:23)
[2019-10-17] MEDS: BASAGLAR SQ SCH ×2 (09:24→21:59)
[2019-10-17] MEDS: Z GUARD REMEDY 4 OZ OINT TP SCH ×2 (09:24→21:47)
[2019-10-17] MEDS: CHLORHEXIDINE GLUCONATE 15 ML UDC MM SCH (09:24)
[2019-10-17] MEDS: MINERAL OIL/PETROL OINT 396 GM JAR TP SCH ×2 (09:24→21:47)
[2019-10-17] MEDS: ACETAMINOPHEN 650 MG/20 ML UDC- SA PATIENTS-PAIN ONLY GT SCH (09:24)
[2019-10-17] MEDS: INSULIN GLARGINE SQ SCH ×2 (09:24→21:59)
--- NOTE | 2019-10-17 11:36 | NUR ---
JOELLE contacted the pt.s responsible libertarian/Uncle, wj invite them to the next IDT Plan of Care Conference taking place 10/21/19 from 12:30-1:30pm in the activities room. Call went to voicemail and JOELLE left a detailed message with call back number.
[2019-10-17] MEDS: INSULIN ASPART/LISPRO 100 UNIT/ML CARTRIDGE SQ PRN ×2 (12:19→17:12)
[2019-10-17] MEDS: NEPRO 1,000 ML BOTTLE GT PRN (12:19)
[2019-10-17 13:12] LABS: BASOPHILS # (AUTO) 0.1 /CMM (0.0-0.2); BASOPHILS % (AUTO) 0.6 % (0.0-2.0); EOSINOPHILS % (AUTO) 5.2 % (0.0-6.0); HEMATOCRIT 28 % (39-51); HEMOGLOBIN 9.6 g/dL (13.5-17.5); LYMPHOCYTES # (AUTO) 1.1 /CMM (0.8-4.8); LYMPHOCYTES % (AUTO) 11.9 % (20.0-44.0); MEAN CORPUSCULAR HGB CONC 34 g/dl (31.0-36.0); MEAN CORPUSCULAR VOLUME 90 fL (80-96); MONOCYTES # (AUTO) 0.9 /CMM (0.1-1.30); MONOCYTES % (AUTO) 9.6 % (2.0-12.0); NEUTROPHILS # (AUTO) 6.7 /CMM (1.8-8.9); NEUTROPHILS % (AUTO) 72.7 % (43.0-81.0); PLATELET COUNT (AUTO) 217 /CMM (150-450); RED BLOOD CELL COUNT(AUTO) 3.11 MIL/uL (4.5-6.0); WHITE BLOOD COUNT (AUTO) 9.2 K/uL (4.3-11.0)
[2019-10-17 13:17] LABS: CALCIUM, SERUM 9.4 mg/dL (8.5-10.1); CREATININE 2.9 mg/dL (0.6-1.3); MAGNESIUM 2.5 mg/dL (1.8-2.4); POTASSIUM 4.6 mmol/L (3.5-5.1)
--- NOTE | 2019-10-17 14:49 | NUR ---
JOELLE contacted Dr. Farrell office to schedule annual optometry apt. Per Barbra, JOELLE to fax hairwendy and she will contact JOELLE back with appointment details. JOELLE faxed the residents faceswendy to [phone]. JOELLE received completed fax receipt. Addendum: 10/17/19 at 1452 by JOHN LAI 's office TEL: [phone]
--- NOTE | 2019-10-17 14:50 | NUR ---
JOELLE contacted Dr. Mandujano office [phone] and spoke to Mystery to scheduled dental cleaning for the resident. Per Mystery, Dr. Raman is available to see completed the dental cleaning 11/02/19. Mystery to call JOELLE to advise what time Dr. Raman should be expected to arrive. JOELLE faxed the residents face sheet to [phone]. JOELLE received completes fax receipt. JOELLE contacted the pt.s family to inform them of dental apt. but call went to voicemail. JOELLE left Millie a detailed voicemail with call back number in case family has any questions or concerns.
[2019-10-17 20:09] VITALS: BP 132/66
[2019-10-17] MEDS ORDERED: METOCLOPRAMIDE HCL GT SCH (21:00)
[2019-10-17] MEDS: SENNOSIDES 8.6 MG TABLET GT SCH (21:47)
[2019-10-17] MEDS: TRIAMCINOLONE ACETONIDE 0.1% CR 15 GM TUBE TP SCH (21:47)
[2019-10-17] MEDS: NYSTATIN CREAM 15 GM TUBE TP SCH (21:47)
[2019-10-17] MEDS: METOCLOPRAMIDE HCL 10 MG/10 ML UDC GT SCH (21:59)
[2019-10-18] MEDS: BLOOD SUGAR DIAGNOSTIC 1 EACH STRIP IN SCH ×5 (00:01→23:45)
[2019-10-18] MEDS: INSULIN ASPART/LISPRO 100 UNIT/ML CARTRIDGE SQ PRN ×4 (00:02→17:58)
[2019-10-18] MEDS: IPRATROPIUM NEB FS 0.5 MG/2.5 ML AMPUL.NEB NEB SCH ×5 (00:47→23:15)
[2019-10-18] MEDS: ALBUTEROL FS 2.5 MG/0.5 ML VIAL.NEB NEB SCH ×5 (00:47→23:15)
[2019-10-18] MEDS: LABETALOL HCL (100MG) 100 MG TABLET GT SCH ×3 (04:51→21:00)
[2019-10-18] MEDS: hydrALAZINE HCL 25 MG TABLET GT SCH ×3 (04:51→21:00)
[2019-10-18] MEDS: CLONIDINE HCL 0.1 MG TABLET GT SCH ×3 (04:51→21:00)
[2019-10-18] MEDS: METOCLOPRAMIDE HCL 10 MG/10 ML UDC GT SCH ×3 (04:51→21:00)
[2019-10-18 07:43] VITALS: BP 132/65
[2019-10-18] MEDS: MINERAL OIL/PETROL OINT 396 GM JAR TP SCH ×2 (09:00→21:00)
[2019-10-18] MEDS: TRIAMCINOLONE ACETONIDE 0.1% CR 15 GM TUBE TP SCH ×2 (09:00→21:00)
[2019-10-18] MEDS: Z GUARD REMEDY 4 OZ OINT TP SCH ×2 (09:00→21:00)
[2019-10-18] MEDS: NYSTATIN CREAM 15 GM TUBE TP SCH ×2 (09:00→21:00)
[2019-10-18] MEDS: HYDROGEN PEROXIDE 480 ML BOTTLE TP SCH ×2 (09:00→21:00)
[2019-10-18] MEDS: ISOSORBIDE DINITRATE (20MG) 20 MG TABLET GT SCH ×3 (09:50→17:58)
[2019-10-18] MEDS: DOXAZOSIN MESYLATE (4 MG) 4 MG TABLET GT SCH ×2 (09:50→21:00)
[2019-10-18] MEDS: FERROUS SULFATE UDC 300 MG/5 ML UDC GT SCH (09:50)
[2019-10-18] MEDS: MINOXIDIL (2.5MG) 2.5 MG TABLET GT SCH (09:50)
[2019-10-18] MEDS: VIT B CMPLX 3/FA/VIT C/BIOTIN 1 TAB TABLET GT SCH (09:50)
[2019-10-18] MEDS: SITAGLIPTIN PHOSPHATE 50 MG TABLET GT SCH (09:50)
[2019-10-18] MEDS: DOCUSATE SODIUM LIQ 100 MG/10 ML UDC GT SCH ×2 (09:50→21:00)
[2019-10-18] MEDS: LACTOBACILLUS RHAMNOSUS GG 1 EACH CAP.SPRINK GT SCH ×2 (09:50→17:57)
[2019-10-18] MEDS: LEVETIRACETAM SOL (5 ML) 100 MG/ML UDC GT SCH ×2 (09:50→21:00)
[2019-10-18] MEDS: INSULIN GLARGINE SQ SCH ×2 (09:51→21:00)
[2019-10-18] MEDS: CHLORHEXIDINE GLUCONATE 15 ML UDC MM SCH (09:51)
[2019-10-18] MEDS: BASAGLAR SQ SCH ×2 (09:51→21:00)
[2019-10-18] MEDS: AMLODIPINE BESYLATE 10 MG TABLET GT SCH (09:51)
[2019-10-18] MEDS: PROSOURCE / PROSTAT (PYXIS) 30 ML UDC GT SCH (09:51)
[2019-10-18] MEDS: FAMOTIDINE (20 MG) 20 MG TABLET GT SCH (09:51)
[2019-10-18] MEDS: ACETAMINOPHEN 650 MG/20 ML UDC- SA PATIENTS-PAIN ONLY GT SCH (09:51)
--- NOTE | 2019-10-18 11:10 | NUR ---
JOELLE contacted 's Optometry office TEL: [phone] and spoke to with Barbra to determine the next available appointment. Per Barbra, Dr. Ugarte is available to see the pt. on 10/24/19 after 12 noon. Noted. JOELLE informed charge nurse and family who were agreeable to plan.
--- NOTE | 2019-10-18 11:25 | NUR ---
JOELLE contacted the pt.s responsible libertarian, Keith Latoya [phone] to inform him that SW is looking to get DME (Tilt in Space wheelchair) for pt. and would need responsible partys consent to disclose health information to DME companies. DME companies would require information to verify the pt.s insurance will cover the costs and also to ensure the correct equipment is provided for the pt. Keith gave SW verbal consent to disclose Health Information to DME companies. SW completed Authorization for use or disclosure of health Information and filed in patients chart.
--- NOTE | 2019-10-18 11:45 | NUR ---
JOELLE Contacted [facility] billing department [phone] and spoke to business banking representative, Daniel to verify [facility] to provide resident with [id number] wheelchair. Per Daniel, she will verify with the pt.s insurance if they will cover the costs and contact JOELLE back. JOELLE was agreeable to plan and will await a call back from [facility] .
--- NOTE | 2019-10-18 12:43 | NUR ---
Received a call from [facility], stating that they will deliver Recatrit on 10/25/19 between 12-7pm for next 4 weeks supply.
--- NOTE | 2019-10-18 18:30 | NUR ---
Seen and examined by Lidia Hoang NP with new orders to d/c midline, to downsize trach to Portex 6, cuffed on next scheduled trach change d/t to patient complaint of having a hard time eating using PMV. Ordered also Maxitrol eye ointment for conjunctivitis. Will continue to monitor.
[2019-10-18] MEDS: NEO/POLY/DEXA OPHTH OINT 3.5 GM TUBE LEFTEYE SCH (21:00)
[2019-10-18 21:33] VITALS: BP 129/51
[2019-10-18] MEDS: SENNOSIDES 8.6 MG TABLET GT SCH (22:13)
[2019-10-19] MEDS: hydrALAZINE HCL 25 MG TABLET GT SCH ×3 (05:40→20:45)
[2019-10-19] MEDS: CLONIDINE HCL 0.1 MG TABLET GT SCH ×3 (05:41→20:47)
[2019-10-19] MEDS: METOCLOPRAMIDE HCL 10 MG/10 ML UDC GT SCH ×3 (05:41→20:50)
[2019-10-19] MEDS: BLOOD SUGAR DIAGNOSTIC 1 EACH STRIP IN SCH ×3 (05:41→17:28)
[2019-10-19] MEDS: LABETALOL HCL (100MG) 100 MG TABLET GT SCH ×3 (05:41→20:50)
[2019-10-19] MEDS: INSULIN ASPART/LISPRO 100 UNIT/ML CARTRIDGE SQ PRN ×3 (05:42→17:29)
[2019-10-19 07:49] VITALS: BP 151/81
[2019-10-19] MEDS: IPRATROPIUM NEB FS 0.5 MG/2.5 ML AMPUL.NEB NEB SCH ×3 (08:12→19:44)
[2019-10-19] MEDS: ALBUTEROL FS 2.5 MG/0.5 ML VIAL.NEB NEB SCH ×3 (08:12→19:44)
--- NOTE | 2019-10-19 08:13 | NUR ---
SW received a voicemail from Barbra at 's Optometry office TEL: [phone] stating that based on their records, the pt. has already received an optometry apt. on June 03, 2019 and based on the resident's insurance he will not be eligible for another apt. until May 2021. Noted.
[2019-10-19] MEDS: FAMOTIDINE (20 MG) 20 MG TABLET GT SCH (09:00)
[2019-10-19] MEDS: INSULIN GLARGINE SQ SCH ×2 (09:00→21:20)
[2019-10-19] MEDS: SITAGLIPTIN PHOSPHATE 50 MG TABLET GT SCH (09:00)
[2019-10-19] MEDS: CHLORHEXIDINE GLUCONATE 15 ML UDC MM SCH (09:00)
[2019-10-19] MEDS: NEO/POLY/DEXA OPHTH OINT 3.5 GM TUBE LEFTEYE SCH ×2 (09:00→20:50)
[2019-10-19] MEDS: AMLODIPINE BESYLATE 10 MG TABLET GT SCH (09:00)
[2019-10-19] MEDS: LACTOBACILLUS RHAMNOSUS GG 1 EACH CAP.SPRINK GT SCH ×2 (09:00→17:20)
[2019-10-19] MEDS: TRIAMCINOLONE ACETONIDE 0.1% CR 15 GM TUBE TP SCH ×2 (09:00→20:55)
[2019-10-19] MEDS: DOXAZOSIN MESYLATE (4 MG) 4 MG TABLET GT SCH ×2 (09:00→20:47)
[2019-10-19] MEDS: MINOXIDIL (2.5MG) 2.5 MG TABLET GT SCH (09:00)
[2019-10-19] MEDS: ACETAMINOPHEN 650 MG/20 ML UDC- SA PATIENTS-PAIN ONLY GT SCH (09:00)
[2019-10-19] MEDS: NYSTATIN CREAM 15 GM TUBE TP SCH ×2 (09:00→20:55)
[2019-10-19] MEDS: ISOSORBIDE DINITRATE (20MG) 20 MG TABLET GT SCH ×3 (09:00→17:28)
[2019-10-19] MEDS: MINERAL OIL/PETROL OINT 396 GM JAR TP SCH ×2 (09:00→20:55)
[2019-10-19] MEDS: DOCUSATE SODIUM LIQ 100 MG/10 ML UDC GT SCH ×2 (09:00→20:50)
[2019-10-19] MEDS: HYDROGEN PEROXIDE 480 ML BOTTLE TP SCH ×2 (09:00→19:44)
[2019-10-19] MEDS: FERROUS SULFATE UDC 300 MG/5 ML UDC GT SCH (09:00)
[2019-10-19] MEDS: LEVETIRACETAM SOL (5 ML) 100 MG/ML UDC GT SCH ×2 (09:00→20:50)
[2019-10-19] MEDS: VIT B CMPLX 3/FA/VIT C/BIOTIN 1 TAB TABLET GT SCH (09:00)
[2019-10-19] MEDS: Z GUARD REMEDY 4 OZ OINT TP SCH ×2 (09:00→20:55)
[2019-10-19] MEDS: BASAGLAR SQ SCH ×2 (09:00→21:20)
[2019-10-19] MEDS: RETACRIT 10,000 UNITS SQ SCH (11:00)
[2019-10-19] MEDS: NEPRO 1,000 ML BOTTLE GT PRN (13:18)
--- NOTE | 2019-10-19 15:06 | NUR ---
JOELLE received a call from [facility] marketing sales representative, Arianna [[address] [place] [address]; [phone]] stating that the pt.s insurance will cover the costs for DME (Tilt in Space Manual wheelchair). Per Arianna, the pt. will require assessment to ensure proper sizing. Arianna scheduled assessment to be completed by [facility] marketing sales representative on 10/26/19 between 12pm-1pm. Charge Nurse Informed.
--- NOTE | 2019-10-19 19:54 | NUR ---
RT NOTE: RECEIVED TRACH PT ON COOL AEROSOL. AMBU BAG @ BEDSIDE. Q6 BREATHING TX GIVEN PER MD ORDERS WITH NO ADVERSE REACTION NOTED. SX DONE PRN. TRACH PATENT AND SECURED. TRACH CARE DONE. NO RESP DISTRESS NOTED AT THIS TIME. WILL CONTINUE TO MONITOR PT Addendum: 10/20/19 at 0301 by GATO MICHELE RT Amended: Links added.
[2019-10-19 20:47] VITALS: BP 130/61
[2019-10-19] MEDS: SENNOSIDES 8.6 MG TABLET GT SCH (21:20)
[2019-10-20] MEDS: BLOOD SUGAR DIAGNOSTIC 1 EACH STRIP IN SCH ×5 (00:32→23:54)
[2019-10-20] MEDS: INSULIN ASPART/LISPRO 100 UNIT/ML CARTRIDGE SQ PRN ×4 (00:33→23:54)
[2019-10-20] MEDS: IPRATROPIUM NEB FS 0.5 MG/2.5 ML AMPUL.NEB NEB SCH ×4 (01:37→19:59)
[2019-10-20] MEDS: ALBUTEROL FS 2.5 MG/0.5 ML VIAL.NEB NEB SCH ×4 (01:37→19:59)
[2019-10-20] MEDS: hydrALAZINE HCL 25 MG TABLET GT SCH ×3 (05:34→21:27)
[2019-10-20] MEDS: LABETALOL HCL (100MG) 100 MG TABLET GT SCH ×3 (05:34→21:27)
[2019-10-20] MEDS: METOCLOPRAMIDE HCL 10 MG/10 ML UDC GT SCH ×3 (05:34→21:27)
[2019-10-20] MEDS: CLONIDINE HCL 0.1 MG TABLET GT SCH ×3 (05:34→21:27)
[2019-10-20 07:22] VITALS: BP 142/74
[2019-10-20] MEDS: BASAGLAR SQ SCH ×2 (09:00→21:28)
[2019-10-20] MEDS: MINERAL OIL/PETROL OINT 396 GM JAR TP SCH ×2 (09:00→21:28)
[2019-10-20] MEDS: HYDROGEN PEROXIDE 480 ML BOTTLE TP SCH ×2 (09:00→19:59)
[2019-10-20] MEDS: ACETAMINOPHEN 650 MG/20 ML UDC- SA PATIENTS-PAIN ONLY GT SCH (09:00)
[2019-10-20] MEDS: Z GUARD REMEDY 4 OZ OINT TP SCH ×2 (09:00→21:29)
[2019-10-20] MEDS: INSULIN GLARGINE SQ SCH ×2 (09:00→21:28)
[2019-10-20] MEDS: NYSTATIN CREAM 15 GM TUBE TP SCH ×2 (09:00→21:29)
[2019-10-20] MEDS: TRIAMCINOLONE ACETONIDE 0.1% CR 15 GM TUBE TP SCH ×2 (09:00→21:29)
[2019-10-20] MEDS: VIT B CMPLX 3/FA/VIT C/BIOTIN 1 TAB TABLET GT SCH (09:00)
[2019-10-20] MEDS: DOXAZOSIN MESYLATE (4 MG) 4 MG TABLET GT SCH ×2 (09:47→21:27)
[2019-10-20] MEDS: ISOSORBIDE DINITRATE (20MG) 20 MG TABLET GT SCH ×3 (09:47→17:28)
[2019-10-20] MEDS: AMLODIPINE BESYLATE 10 MG TABLET GT SCH (09:48)
[2019-10-20] MEDS: MINOXIDIL (2.5MG) 2.5 MG TABLET GT SCH (09:49)
[2019-10-20] MEDS: FAMOTIDINE (20 MG) 20 MG TABLET GT SCH (09:49)
[2019-10-20] MEDS: SITAGLIPTIN PHOSPHATE 50 MG TABLET GT SCH (09:51)
[2019-10-20] MEDS: DOCUSATE SODIUM LIQ 100 MG/10 ML UDC GT SCH ×2 (09:54→21:27)
[2019-10-20] MEDS: LACTOBACILLUS RHAMNOSUS GG 1 EACH CAP.SPRINK GT SCH ×2 (09:54→17:28)
[2019-10-20] MEDS: FERROUS SULFATE UDC 300 MG/5 ML UDC GT SCH (09:55)
[2019-10-20] MEDS: LEVETIRACETAM SOL (5 ML) 100 MG/ML UDC GT SCH ×2 (09:56→21:27)
[2019-10-20] MEDS: CHLORHEXIDINE GLUCONATE 15 ML UDC MM SCH (09:59)
[2019-10-20] MEDS: NEO/POLY/DEXA OPHTH OINT 3.5 GM TUBE LEFTEYE SCH ×2 (09:59→21:27)
--- NOTE | 2019-10-20 14:30 | NUR ---
JOELLE received a call from [facility] parts sales representative, Arianna [[address] [place] [address]; [phone]] to reschedule the appointment with Medical Supplies Assistive Domestic Laundry Worker, Santiago on 10/26/19 between 12pm-1pm. Per Arianna, Santiago will be seen by Santiago 10/26/19 after 2:30 pm. Noted . Charge Nurse and family informed.
[2019-10-20] MEDS: NEPRO 1,000 ML BOTTLE GT PRN (17:54)
--- NOTE | 2019-10-20 18:57 | NUR ---
Seen by OUTFITTER CABIN Lidia Hoang. She said to downsize pt's trach with routine trach change.
[2019-10-20 20:03] VITALS: BP 153/71
[2019-10-20] MEDS: SENNOSIDES 8.6 MG TABLET GT SCH (21:29)
[2019-10-21] MEDS: ALBUTEROL FS 2.5 MG/0.5 ML VIAL.NEB NEB SCH ×4 (02:03→19:48)
[2019-10-21] MEDS: IPRATROPIUM NEB FS 0.5 MG/2.5 ML AMPUL.NEB NEB SCH ×4 (02:03→19:48)
[2019-10-21] MEDS: hydrALAZINE HCL 25 MG TABLET GT SCH ×3 (05:53→21:16)
[2019-10-21] MEDS: METOCLOPRAMIDE HCL 10 MG/10 ML UDC GT SCH ×3 (05:54→21:22)
[2019-10-21] MEDS: CLONIDINE HCL 0.1 MG TABLET GT SCH ×3 (05:54→21:18)
[2019-10-21] MEDS: BLOOD SUGAR DIAGNOSTIC 1 EACH STRIP IN SCH ×3 (05:56→18:09)
[2019-10-21] MEDS: INSULIN ASPART/LISPRO 100 UNIT/ML CARTRIDGE SQ PRN ×3 (05:56→18:14)
[2019-10-21] MEDS: LABETALOL HCL (100MG) 100 MG TABLET GT SCH ×3 (05:56→21:24)
[2019-10-21 07:39] VITALS: BP 141/64
[2019-10-21] MEDS: ACETAMINOPHEN 650 MG/20 ML UDC- SA PATIENTS-PAIN ONLY GT SCH (09:00)
[2019-10-21] MEDS: LACTOBACILLUS RHAMNOSUS GG 1 EACH CAP.SPRINK GT SCH ×2 (09:00→17:00)
[2019-10-21] MEDS: HYDROGEN PEROXIDE 480 ML BOTTLE TP SCH ×2 (09:00→21:12)
[2019-10-21] MEDS: MINOXIDIL (2.5MG) 2.5 MG TABLET GT SCH (09:00)
[2019-10-21] MEDS: SITAGLIPTIN PHOSPHATE 50 MG TABLET GT SCH (09:00)
[2019-10-21] MEDS: DOXAZOSIN MESYLATE (4 MG) 4 MG TABLET GT SCH ×2 (09:00→21:17)
[2019-10-21] MEDS: MINERAL OIL/PETROL OINT 396 GM JAR TP SCH ×2 (09:00→21:27)
[2019-10-21] MEDS: AMLODIPINE BESYLATE 10 MG TABLET GT SCH (09:00)
[2019-10-21] MEDS: Z GUARD REMEDY 4 OZ OINT TP SCH ×2 (09:00→21:28)
[2019-10-21] MEDS: BASAGLAR SQ SCH ×2 (09:00→21:00)
[2019-10-21] MEDS: VIT B CMPLX 3/FA/VIT C/BIOTIN 1 TAB TABLET GT SCH (09:00)
[2019-10-21] MEDS: DOCUSATE SODIUM LIQ 100 MG/10 ML UDC GT SCH ×2 (09:00→21:23)
[2019-10-21] MEDS: ISOSORBIDE DINITRATE (20MG) 20 MG TABLET GT SCH ×3 (09:00→17:00)
[2019-10-21] MEDS: NEO/POLY/DEXA OPHTH OINT 3.5 GM TUBE LEFTEYE SCH ×2 (09:00→21:25)
[2019-10-21] MEDS: INSULIN GLARGINE SQ SCH ×2 (09:00→21:00)
[2019-10-21] MEDS: LEVETIRACETAM SOL (5 ML) 100 MG/ML UDC GT SCH ×2 (09:00→21:21)
[2019-10-21] MEDS: FAMOTIDINE (20 MG) 20 MG TABLET GT SCH (09:00)
[2019-10-21] MEDS: FERROUS SULFATE UDC 300 MG/5 ML UDC GT SCH (09:00)
[2019-10-21] MEDS: CHLORHEXIDINE GLUCONATE 15 ML UDC MM SCH (09:00)
[2019-10-21] MEDS: TRIAMCINOLONE ACETONIDE 0.1% CR 15 GM TUBE TP SCH ×2 (09:00→21:28)
[2019-10-21] MEDS: NYSTATIN CREAM 15 GM TUBE TP SCH ×2 (09:00→21:28)
--- NOTE | 2019-10-21 15:36 | NUR ---
INTERDISCIPLINARY PLAN OF CARE CONFERENCE took place today. The patients responsible green party/ Millie Klein [phone] was in attendance. The IDT answered all of familys questions. Charge nurse discussed Trach was downsized to Portex 6 10/21; 10/18 cool compress L eye q 6 hrs. x 5 days & Maxitrol eye ointment L eye q shift x [address] Braun and Interdisciplinary team discussed the plan of care in detail. Current orders as well as treatments and medications were reviewed. Please see other disciplines IDT notes for further details.
[2019-10-21] MEDS: NEPRO 1,000 ML BOTTLE GT PRN (18:22)
[2019-10-21 20:13] VITALS: BP 158/75
[2019-10-21] MEDS: SENNOSIDES 8.6 MG TABLET GT SCH (21:30)
[2019-10-22] MEDS: BLOOD SUGAR DIAGNOSTIC 1 EACH STRIP IN SCH ×5 (00:29→23:39)
[2019-10-22] MEDS: INSULIN ASPART/LISPRO 100 UNIT/ML CARTRIDGE SQ PRN ×4 (00:31→23:40)
[2019-10-22] MEDS: ALBUTEROL FS 2.5 MG/0.5 ML VIAL.NEB NEB SCH ×4 (01:54→19:45)
[2019-10-22] MEDS: IPRATROPIUM NEB FS 0.5 MG/2.5 ML AMPUL.NEB NEB SCH ×4 (01:54→19:45)
[2019-10-22] MEDS: METOCLOPRAMIDE HCL 10 MG/10 ML UDC GT SCH ×3 (05:00→21:37)
[2019-10-22] MEDS: CLONIDINE HCL 0.1 MG TABLET GT SCH ×3 (05:00→21:37)
[2019-10-22] MEDS: LABETALOL HCL (100MG) 100 MG TABLET GT SCH ×3 (05:00→21:37)
[2019-10-22] MEDS: hydrALAZINE HCL 25 MG TABLET GT SCH ×3 (06:00→21:37)
--- NOTE | 2019-10-22 06:49 | NUR ---
Patient tolerated GT feeding Jevity 1.2 20 ml/hr,residual @ 10 ml,no emesis.HOB kept elevated to prevent aspiration.TPN 80ml infusing well.Will continue to monitor. Addendum: 10/27/19 at 0033 by CAROL FAYE RN Wrong entry not intended to this patient.
[2019-10-22 08:05] VITALS: BP 162/77
[2019-10-22] MEDS: HYDROGEN PEROXIDE 480 ML BOTTLE TP SCH ×2 (08:09→21:38)
[2019-10-22] MEDS: LEVETIRACETAM SOL (5 ML) 100 MG/ML UDC GT SCH ×2 (09:00→21:37)
[2019-10-22] MEDS: FAMOTIDINE (20 MG) 20 MG TABLET GT SCH (09:00)
[2019-10-22] MEDS: CHLORHEXIDINE GLUCONATE 15 ML UDC MM SCH (09:00)
[2019-10-22] MEDS: VIT B CMPLX 3/FA/VIT C/BIOTIN 1 TAB TABLET GT SCH (09:00)
[2019-10-22] MEDS: DOXAZOSIN MESYLATE (4 MG) 4 MG TABLET GT SCH ×2 (09:00→21:37)
[2019-10-22] MEDS: LACTOBACILLUS RHAMNOSUS GG 1 EACH CAP.SPRINK GT SCH ×2 (09:00→16:13)
[2019-10-22] MEDS: FERROUS SULFATE UDC 300 MG/5 ML UDC GT SCH (09:00)
[2019-10-22] MEDS: DOCUSATE SODIUM LIQ 100 MG/10 ML UDC GT SCH ×2 (09:00→21:37)
[2019-10-22] MEDS: SITAGLIPTIN PHOSPHATE 50 MG TABLET GT SCH (09:00)
[2019-10-22] MEDS: AMLODIPINE BESYLATE 10 MG TABLET GT SCH (09:00)
[2019-10-22] MEDS: ISOSORBIDE DINITRATE (20MG) 20 MG TABLET GT SCH ×3 (09:00→16:13)
[2019-10-22] MEDS: NEO/POLY/DEXA OPHTH OINT 3.5 GM TUBE LEFTEYE SCH ×2 (09:00→21:38)
[2019-10-22] MEDS: MINOXIDIL (2.5MG) 2.5 MG TABLET GT SCH (09:00)
[2019-10-22] MEDS: ACETAMINOPHEN 650 MG/20 ML UDC- SA PATIENTS-PAIN ONLY GT SCH (09:00)
[2019-10-22] MEDS: BASAGLAR SQ SCH ×2 (09:00→21:38)
[2019-10-22] MEDS: INSULIN GLARGINE SQ SCH ×2 (09:00→21:38)
[2019-10-22] MEDS: TRIAMCINOLONE ACETONIDE 0.1% CR 15 GM TUBE TP SCH ×2 (10:00→21:38)
[2019-10-22] MEDS: MINERAL OIL/PETROL OINT 396 GM JAR TP SCH ×2 (10:00→21:38)
[2019-10-22] MEDS: NYSTATIN CREAM 15 GM TUBE TP SCH ×2 (10:00→21:38)
[2019-10-22] MEDS: Z GUARD REMEDY 4 OZ OINT TP SCH ×2 (10:00→21:39)
--- NOTE | 2019-10-22 12:10 | NUR ---
PATIENT'S BP 174/80, HR 81 GIVEN MEDICATIONS ORDERED. WILL REASSESS
--- NOTE | 2019-10-22 13:40 | NUR ---
PATIENT'S BP RECHECKED BP AT 123/65, HR 82. PATIENT RESTING COMFORTABLY IN BED, NO RESPIRATORY DISTRESS, NO C/O PAIN AT THIS TIME. WILL CONTINUE TO MONITOR.
[2019-10-22] MEDS: NEPRO 1,000 ML BOTTLE GT PRN (16:28)
[2019-10-22 19:42] VITALS: BP 138/66
[2019-10-22] MEDS: SENNOSIDES 8.6 MG TABLET GT SCH (21:39)
[2019-10-23] MEDS: ALBUTEROL FS 2.5 MG/0.5 ML VIAL.NEB NEB SCH ×4 (01:07→20:01)
[2019-10-23] MEDS: IPRATROPIUM NEB FS 0.5 MG/2.5 ML AMPUL.NEB NEB SCH ×4 (01:07→20:01)
[2019-10-23] MEDS: hydrALAZINE HCL 25 MG TABLET GT SCH ×3 (05:12→21:53)
[2019-10-23] MEDS: LABETALOL HCL (100MG) 100 MG TABLET GT SCH ×3 (05:12→21:54)
[2019-10-23] MEDS: METOCLOPRAMIDE HCL 10 MG/10 ML UDC GT SCH ×3 (05:12→21:54)
[2019-10-23] MEDS: CLONIDINE HCL 0.1 MG TABLET GT SCH ×3 (05:12→21:54)
[2019-10-23] MEDS: BLOOD SUGAR DIAGNOSTIC 1 EACH STRIP IN SCH ×3 (05:40→17:56)
[2019-10-23] MEDS: INSULIN ASPART/LISPRO 100 UNIT/ML CARTRIDGE SQ PRN ×3 (05:40→17:58)
[2019-10-23 07:35] VITALS: BP 135/58
[2019-10-23] MEDS: NYSTATIN CREAM 15 GM TUBE TP SCH ×2 (09:00→21:55)
[2019-10-23] MEDS: TRIAMCINOLONE ACETONIDE 0.1% CR 15 GM TUBE TP SCH ×2 (09:00→21:55)
[2019-10-23] MEDS: MINERAL OIL/PETROL OINT 396 GM JAR TP SCH ×2 (09:00→21:55)
[2019-10-23] MEDS: Z GUARD REMEDY 4 OZ OINT TP SCH ×2 (09:00→21:55)
[2019-10-23] MEDS: HYDROGEN PEROXIDE 480 ML BOTTLE TP SCH ×2 (09:00→20:01)
[2019-10-23] MEDS: DOXAZOSIN MESYLATE (4 MG) 4 MG TABLET GT SCH ×2 (09:28→21:54)
[2019-10-23] MEDS: MINOXIDIL (2.5MG) 2.5 MG TABLET GT SCH (09:29)
[2019-10-23] MEDS: LACTOBACILLUS RHAMNOSUS GG 1 EACH CAP.SPRINK GT SCH ×2 (09:29→17:56)
[2019-10-23] MEDS: ISOSORBIDE DINITRATE (20MG) 20 MG TABLET GT SCH ×3 (09:29→17:56)
[2019-10-23] MEDS: FAMOTIDINE (20 MG) 20 MG TABLET GT SCH (09:29)
[2019-10-23] MEDS: SITAGLIPTIN PHOSPHATE 50 MG TABLET GT SCH (09:29)
[2019-10-23] MEDS: DOCUSATE SODIUM LIQ 100 MG/10 ML UDC GT SCH ×2 (09:29→21:54)
[2019-10-23] MEDS: FERROUS SULFATE UDC 300 MG/5 ML UDC GT SCH (09:29)
[2019-10-23] MEDS: LEVETIRACETAM SOL (5 ML) 100 MG/ML UDC GT SCH ×2 (09:29→21:54)
[2019-10-23] MEDS: VIT B CMPLX 3/FA/VIT C/BIOTIN 1 TAB TABLET GT SCH (09:29)
[2019-10-23] MEDS: AMLODIPINE BESYLATE 10 MG TABLET GT SCH (09:29)
[2019-10-23] MEDS: ACETAMINOPHEN 650 MG/20 ML UDC- SA PATIENTS-PAIN ONLY GT SCH (09:30)
[2019-10-23] MEDS: CHLORHEXIDINE GLUCONATE 15 ML UDC MM SCH (09:30)
[2019-10-23] MEDS: BASAGLAR SQ SCH ×2 (09:54→21:55)
[2019-10-23] MEDS: INSULIN GLARGINE SQ SCH ×2 (09:54→21:55)
[2019-10-23 19:48] VITALS: BP 136/68
[2019-10-23] MEDS: SENNOSIDES 8.6 MG TABLET GT SCH (21:55)
[2019-10-24] MEDS: BLOOD SUGAR DIAGNOSTIC 1 EACH STRIP IN SCH ×5 (00:37→23:39)
[2019-10-24] MEDS: INSULIN ASPART/LISPRO 100 UNIT/ML CARTRIDGE SQ PRN ×5 (00:39→23:40)
[2019-10-24] MEDS: ALBUTEROL FS 2.5 MG/0.5 ML VIAL.NEB NEB SCH ×4 (01:56→19:59)
[2019-10-24] MEDS: IPRATROPIUM NEB FS 0.5 MG/2.5 ML AMPUL.NEB NEB SCH ×4 (01:56→19:59)
[2019-10-24] MEDS: hydrALAZINE HCL 25 MG TABLET GT SCH ×3 (05:00→20:59)
[2019-10-24] MEDS: CLONIDINE HCL 0.1 MG TABLET GT SCH ×3 (05:00→21:00)
[2019-10-24] MEDS: METOCLOPRAMIDE HCL 10 MG/10 ML UDC GT SCH ×3 (05:00→21:00)
[2019-10-24] MEDS: LABETALOL HCL (100MG) 100 MG TABLET GT SCH ×3 (05:00→21:00)
[2019-10-24 07:32] VITALS: BP 142/66
[2019-10-24] MEDS: HYDROGEN PEROXIDE 480 ML BOTTLE TP SCH ×2 (08:29→19:59)
[2019-10-24] MEDS: FERROUS SULFATE UDC 300 MG/5 ML UDC GT SCH (09:16)
[2019-10-24] MEDS: DOCUSATE SODIUM LIQ 100 MG/10 ML UDC GT SCH ×2 (09:16→21:00)
[2019-10-24] MEDS: LEVETIRACETAM SOL (5 ML) 100 MG/ML UDC GT SCH ×2 (09:16→21:00)
[2019-10-24] MEDS: ISOSORBIDE DINITRATE (20MG) 20 MG TABLET GT SCH ×3 (09:16→17:00)
[2019-10-24] MEDS: SITAGLIPTIN PHOSPHATE 50 MG TABLET GT SCH (09:16)
[2019-10-24] MEDS: LACTOBACILLUS RHAMNOSUS GG 1 EACH CAP.SPRINK GT SCH ×2 (09:16→17:00)
[2019-10-24] MEDS: DOXAZOSIN MESYLATE (4 MG) 4 MG TABLET GT SCH ×2 (09:16→20:59)
[2019-10-24] MEDS: AMLODIPINE BESYLATE 10 MG TABLET GT SCH (09:17)
[2019-10-24] MEDS: VIT B CMPLX 3/FA/VIT C/BIOTIN 1 TAB TABLET GT SCH (09:17)
[2019-10-24] MEDS: FAMOTIDINE (20 MG) 20 MG TABLET GT SCH (09:17)
[2019-10-24] MEDS: MINOXIDIL (2.5MG) 2.5 MG TABLET GT SCH (09:17)
[2019-10-24] MEDS: CHLORHEXIDINE GLUCONATE 15 ML UDC MM SCH (09:18)
[2019-10-24] MEDS: ACETAMINOPHEN 650 MG/20 ML UDC- SA PATIENTS-PAIN ONLY GT SCH (09:18)
[2019-10-24] MEDS: TRIAMCINOLONE ACETONIDE 0.1% CR 15 GM TUBE TP SCH ×2 (09:19→21:00)
[2019-10-24] MEDS: BASAGLAR SQ SCH ×2 (09:19→21:28)
[2019-10-24] MEDS: MINERAL OIL/PETROL OINT 396 GM JAR TP SCH ×2 (09:19→21:00)
[2019-10-24] MEDS: INSULIN GLARGINE SQ SCH ×2 (09:19→21:28)
[2019-10-24] MEDS: NYSTATIN CREAM 15 GM TUBE TP SCH ×2 (09:20→21:01)
[2019-10-24] MEDS: Z GUARD REMEDY 4 OZ OINT TP SCH ×2 (09:20→21:01)
[2019-10-24 11:41] LABS: BASOPHILS # (AUTO) 0.1 /CMM (0.0-0.2); BASOPHILS % (AUTO) 0.6 % (0.0-2.0); EOSINOPHILS % (AUTO) 5.9 % (0.0-6.0); HEMATOCRIT 30 % (39-51); LYMPHOCYTES # (AUTO) 1.1 /CMM (0.8-4.8); LYMPHOCYTES % (AUTO) 8.6 % (20.0-44.0); MEAN CORPUSCULAR HGB CONC 34 g/dl (31.0-36.0); MEAN CORPUSCULAR VOLUME 89 fL (80-96); MONOCYTES # (AUTO) 1.2 /CMM (0.1-1.30); MONOCYTES % (AUTO) 9.4 % (2.0-12.0); NEUTROPHILS # (AUTO) 9.4 /CMM (1.8-8.9); NEUTROPHILS % (AUTO) 75.5 % (43.0-81.0); PLATELET COUNT (AUTO) 200 /CMM (150-450); RED BLOOD CELL COUNT(AUTO) 3.33 MIL/uL (4.5-6.0); WHITE BLOOD COUNT (AUTO) 12.5 K/uL (4.3-11.0)
[2019-10-24 11:53] LABS: CALCIUM, SERUM 9.7 mg/dL (8.5-10.1); MAGNESIUM 2.1 mg/dL (1.8-2.4); PHOSPHORUS 5.1 mg/dL (2.5-4.9); POTASSIUM 4.6 mmol/L (3.5-5.1)
[2019-10-24 19:52] VITALS: BP 149/71
[2019-10-24] MEDS: SENNOSIDES 8.6 MG TABLET GT SCH (21:01)
[2019-10-24] MEDS: NEPRO 1,000 ML BOTTLE GT PRN (22:15)
[2019-10-25] MEDS: IPRATROPIUM NEB FS 0.5 MG/2.5 ML AMPUL.NEB NEB SCH ×4 (01:40→19:50)
[2019-10-25] MEDS: ALBUTEROL FS 2.5 MG/0.5 ML VIAL.NEB NEB SCH ×4 (01:40→19:50)
[2019-10-25] MEDS: CLONIDINE HCL 0.1 MG TABLET GT SCH ×3 (04:58→20:56)
[2019-10-25] MEDS: METOCLOPRAMIDE HCL 10 MG/10 ML UDC GT SCH ×3 (04:58→20:56)
[2019-10-25] MEDS: hydrALAZINE HCL 25 MG TABLET GT SCH ×3 (04:58→20:56)
[2019-10-25] MEDS: LABETALOL HCL (100MG) 100 MG TABLET GT SCH ×3 (04:59→20:57)
[2019-10-25] MEDS: BLOOD SUGAR DIAGNOSTIC 1 EACH STRIP IN SCH ×4 (06:11→23:42)
[2019-10-25] MEDS: INSULIN ASPART/LISPRO 100 UNIT/ML CARTRIDGE SQ PRN ×4 (06:12→23:43)
[2019-10-25 07:30] VITALS: BP 137/74
[2019-10-25] MEDS: NYSTATIN CREAM 15 GM TUBE TP SCH ×2 (09:00→20:57)
[2019-10-25] MEDS: TRIAMCINOLONE ACETONIDE 0.1% CR 15 GM TUBE TP SCH ×2 (09:00→20:57)
[2019-10-25] MEDS: Z GUARD REMEDY 4 OZ OINT TP SCH ×2 (09:00→20:57)
[2019-10-25] MEDS: MINERAL OIL/PETROL OINT 396 GM JAR TP SCH ×2 (09:00→20:57)
[2019-10-25] MEDS: HYDROGEN PEROXIDE 480 ML BOTTLE TP SCH ×2 (09:00→19:50)
[2019-10-25] MEDS: VIT B CMPLX 3/FA/VIT C/BIOTIN 1 TAB TABLET GT SCH (09:05)
[2019-10-25] MEDS: DOXAZOSIN MESYLATE (4 MG) 4 MG TABLET GT SCH ×2 (09:05→20:56)
[2019-10-25] MEDS: SITAGLIPTIN PHOSPHATE 50 MG TABLET GT SCH (09:05)
[2019-10-25] MEDS: MINOXIDIL (2.5MG) 2.5 MG TABLET GT SCH (09:05)
[2019-10-25] MEDS: ISOSORBIDE DINITRATE (20MG) 20 MG TABLET GT SCH ×3 (09:05→17:54)
[2019-10-25] MEDS: LACTOBACILLUS RHAMNOSUS GG 1 EACH CAP.SPRINK GT SCH ×2 (09:05→17:50)
[2019-10-25] MEDS: FERROUS SULFATE UDC 300 MG/5 ML UDC GT SCH (09:05)
[2019-10-25] MEDS: DOCUSATE SODIUM LIQ 100 MG/10 ML UDC GT SCH ×2 (09:05→20:56)
[2019-10-25] MEDS: LEVETIRACETAM SOL (5 ML) 100 MG/ML UDC GT SCH ×2 (09:05→20:56)
[2019-10-25] MEDS: ACETAMINOPHEN 650 MG/20 ML UDC- SA PATIENTS-PAIN ONLY GT SCH (09:06)
[2019-10-25] MEDS: FAMOTIDINE (20 MG) 20 MG TABLET GT SCH (09:06)
[2019-10-25] MEDS: AMLODIPINE BESYLATE 10 MG TABLET GT SCH (09:06)
[2019-10-25] MEDS: INSULIN GLARGINE SQ SCH ×2 (09:07→21:12)
[2019-10-25] MEDS: CHLORHEXIDINE GLUCONATE 15 ML UDC MM SCH (09:07)
[2019-10-25] MEDS: BASAGLAR SQ SCH ×2 (09:07→21:12)
[2019-10-25 20:21] VITALS: BP 143/72
[2019-10-25] MEDS: SENNOSIDES 8.6 MG TABLET GT SCH (21:12)
[2019-10-25] MEDS: NEPRO 1,000 ML BOTTLE GT PRN (23:52)
[2019-10-26] MEDS: ALBUTEROL FS 2.5 MG/0.5 ML VIAL.NEB NEB SCH ×4 (00:45→19:29)
[2019-10-26] MEDS: IPRATROPIUM NEB FS 0.5 MG/2.5 ML AMPUL.NEB NEB SCH ×4 (00:45→19:29)
[2019-10-26] MEDS: hydrALAZINE HCL 25 MG TABLET GT SCH ×3 (05:34→21:04)
[2019-10-26] MEDS: METOCLOPRAMIDE HCL 10 MG/10 ML UDC GT SCH ×3 (05:35→21:05)
[2019-10-26] MEDS: CLONIDINE HCL 0.1 MG TABLET GT SCH ×3 (05:35→21:04)
[2019-10-26] MEDS: LABETALOL HCL (100MG) 100 MG TABLET GT SCH ×3 (05:35→21:05)
[2019-10-26] MEDS: BLOOD SUGAR DIAGNOSTIC 1 EACH STRIP IN SCH ×4 (05:58→23:28)
[2019-10-26] MEDS: INSULIN ASPART/LISPRO 100 UNIT/ML CARTRIDGE SQ PRN ×4 (05:59→23:28)
[2019-10-26 07:42] VITALS: BP 149/73
[2019-10-26] MEDS: HYDROGEN PEROXIDE 480 ML BOTTLE TP SCH ×2 (08:04→20:28)
[2019-10-26] MEDS: TRIAMCINOLONE ACETONIDE 0.1% CR 15 GM TUBE TP SCH ×2 (09:00→21:06)
[2019-10-26] MEDS: NYSTATIN CREAM 15 GM TUBE TP SCH ×2 (09:00→21:06)
[2019-10-26] MEDS: MINERAL OIL/PETROL OINT 396 GM JAR TP SCH ×2 (09:00→21:05)
[2019-10-26] MEDS: Z GUARD REMEDY 4 OZ OINT TP SCH ×2 (09:00→21:06)
[2019-10-26] MEDS: FERROUS SULFATE UDC 300 MG/5 ML UDC GT SCH (09:13)
[2019-10-26] MEDS: DOCUSATE SODIUM LIQ 100 MG/10 ML UDC GT SCH ×2 (09:13→21:05)
[2019-10-26] MEDS: ISOSORBIDE DINITRATE (20MG) 20 MG TABLET GT SCH ×3 (09:13→17:00)
[2019-10-26] MEDS: DOXAZOSIN MESYLATE (4 MG) 4 MG TABLET GT SCH ×2 (09:13→21:04)
[2019-10-26] MEDS: SITAGLIPTIN PHOSPHATE 50 MG TABLET GT SCH (09:13)
[2019-10-26] MEDS: LEVETIRACETAM SOL (5 ML) 100 MG/ML UDC GT SCH ×2 (09:13→21:05)
[2019-10-26] MEDS: AMLODIPINE BESYLATE 10 MG TABLET GT SCH (09:14)
[2019-10-26] MEDS: MINOXIDIL (2.5MG) 2.5 MG TABLET GT SCH (09:14)
[2019-10-26] MEDS: FAMOTIDINE (20 MG) 20 MG TABLET GT SCH (09:15)
[2019-10-26] MEDS: ACETAMINOPHEN 650 MG/20 ML UDC- SA PATIENTS-PAIN ONLY GT SCH (09:15)
[2019-10-26] MEDS: CHLORHEXIDINE GLUCONATE 15 ML UDC MM SCH (09:15)
[2019-10-26] MEDS: BASAGLAR SQ SCH ×2 (09:25→21:06)
[2019-10-26] MEDS: INSULIN GLARGINE SQ SCH ×2 (09:25→21:06)
[2019-10-26] MEDS: LACTOBACILLUS RHAMNOSUS GG 1 EACH CAP.SPRINK GT SCH ×2 (09:28→17:00)
[2019-10-26] MEDS: VIT B CMPLX 3/FA/VIT C/BIOTIN 1 TAB TABLET GT SCH (09:28)
--- NOTE | 2019-10-26 10:16 | NUR ---
Wheelchair consult: JOELLE received a call from [facility] [employer], Arianna [phone] confirming todays apt. with resident. Per Arianna, their Assistive Field Marketing Lead, Santiago will arrive at 2:30pm to assess the pt. and ensure the tilt in space wheelchair is an appropriate fit for the resident. JOELLE informed patient, charge nurse and family.
[2019-10-26] MEDS: RETACRIT 10,000 UNITS SQ SCH (11:00)
--- NOTE | 2019-10-26 15:34 | NUR ---
Seen and examined by Lidia Hoang, MAYRA, NNO given. 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 NNO given at this time but to keep on trying using PMV. According to INJECTION MOLDER, patient's trach is capped at his previous facility. Resident also seen by Santiago Sher from [facility] and obtain measurement for customized wheelchair.
[2019-10-26 20:34] VITALS: BP 139/72
[2019-10-26] MEDS: SENNOSIDES 8.6 MG TABLET GT SCH (21:06)
--- NOTE | 2019-10-26 22:04 | NUR ---
PT RECEIVE STABLE ON C/A @ 28% FIO2, TRACH PATENT AND SECURED, BACK UP CATIE AND JOCELIN BAG IS AT BEDSIDE, WILL CONTINUE TO MONITOR Addendum: 10/26/19 at 2204 by GILBERT ROGERS RT Amended: Links added.
[2019-10-27] MEDS: ALBUTEROL FS 2.5 MG/0.5 ML VIAL.NEB NEB SCH ×4 (01:41→19:54)
[2019-10-27] MEDS: IPRATROPIUM NEB FS 0.5 MG/2.5 ML AMPUL.NEB NEB SCH ×4 (01:41→19:54)
[2019-10-27] MEDS: CLONIDINE HCL 0.1 MG TABLET GT SCH ×3 (05:32→21:30)
[2019-10-27] MEDS: METOCLOPRAMIDE HCL 10 MG/10 ML UDC GT SCH ×3 (05:32→21:30)
[2019-10-27] MEDS: hydrALAZINE HCL 25 MG TABLET GT SCH ×3 (05:32→21:29)
[2019-10-27] MEDS: LABETALOL HCL (100MG) 100 MG TABLET GT SCH ×3 (05:32→21:30)
[2019-10-27] MEDS: BLOOD SUGAR DIAGNOSTIC 1 EACH STRIP IN SCH ×4 (05:56→23:24)
[2019-10-27] MEDS: INSULIN ASPART/LISPRO 100 UNIT/ML CARTRIDGE SQ PRN ×4 (05:56→23:24)
[2019-10-27] MEDS: BISACODYL SUPP (10 MG) 10 MG/SUPP.RECT SUPP.RECT RC PRN (06:53)
[2019-10-27 07:46] VITALS: BP 155/73
[2019-10-27] MEDS: HYDROGEN PEROXIDE 480 ML BOTTLE TP SCH ×2 (08:06→19:54)
[2019-10-27] MEDS: ISOSORBIDE DINITRATE (20MG) 20 MG TABLET GT SCH ×3 (09:00→17:52)
[2019-10-27] MEDS: BASAGLAR SQ SCH ×2 (09:00→21:31)
[2019-10-27] MEDS: FAMOTIDINE (20 MG) 20 MG TABLET GT SCH (09:00)
[2019-10-27] MEDS: NYSTATIN CREAM 15 GM TUBE TP SCH ×2 (09:00→21:31)
[2019-10-27] MEDS: NEOMY SULF/BACITRAC ZN/POLY 15 GM TUBE TP SCH ×2 (09:00→21:31)
[2019-10-27] MEDS: LACTOBACILLUS RHAMNOSUS GG 1 EACH CAP.SPRINK GT SCH ×2 (09:00→17:00)
[2019-10-27] MEDS: LEVETIRACETAM SOL (5 ML) 100 MG/ML UDC GT SCH ×2 (09:00→21:30)
[2019-10-27] MEDS: DOCUSATE SODIUM LIQ 100 MG/10 ML UDC GT SCH ×2 (09:00→21:30)
[2019-10-27] MEDS: SITAGLIPTIN PHOSPHATE 50 MG TABLET GT SCH (09:00)
[2019-10-27] MEDS: ACETAMINOPHEN 650 MG/20 ML UDC- SA PATIENTS-PAIN ONLY GT SCH (09:00)
[2019-10-27] MEDS: MINOXIDIL (2.5MG) 2.5 MG TABLET GT SCH (09:00)
[2019-10-27] MEDS: AMLODIPINE BESYLATE 10 MG TABLET GT SCH (09:00)
[2019-10-27] MEDS: TRIAMCINOLONE ACETONIDE 0.1% CR 15 GM TUBE TP SCH ×2 (09:00→21:31)
[2019-10-27] MEDS: INSULIN GLARGINE SQ SCH ×2 (09:00→21:31)
[2019-10-27] MEDS: CHLORHEXIDINE GLUCONATE 15 ML UDC MM SCH (09:00)
[2019-10-27] MEDS: Z GUARD REMEDY 4 OZ OINT TP SCH ×2 (09:00→21:31)
[2019-10-27] MEDS: MINERAL OIL/PETROL OINT 396 GM JAR TP SCH ×2 (09:00→21:31)
[2019-10-27] MEDS: VIT B CMPLX 3/FA/VIT C/BIOTIN 1 TAB TABLET GT SCH (09:00)
[2019-10-27] MEDS: DOXAZOSIN MESYLATE (4 MG) 4 MG TABLET GT SCH ×2 (09:00→21:30)
[2019-10-27] MEDS: FERROUS SULFATE UDC 300 MG/5 ML UDC GT SCH (09:00)
[2019-10-27 11:41] LABS: ABG BASE EXCESS -6.6 mmol/L; ABG OXYGEN SATURATION 99.2 % (92.0-98.5); ABG PCO2 38.3 mmHg (35.0-45.0); ABG PH 7.314 (7.350-7.450); ABG PO2 477.8 mmHg (75.0-100.0); AaDO2 196.9 mmHg; COHb 0.1 % (0.5-1.5); MetHb 0.5 % (0.0-1.5); O2Hb 98.6 % (94.0-97.0); SITE, ABG Right Radial; VENT MODE, BG PT BEING BAGGED
--- NOTE | 2019-10-27 11:45 | NUR ---
RT GOT CALLED INTO PTS ROOM FOR SX. CAME TO ROOM AND FOUND PT UNRESPONSIVE, PALE, GRAYISH COLOR, AND DROOLING. CALLED CHARGE NURSE AND STARTED ASSISTING VENTILATION THROUGH BMV. RAPID RESPONSE WAS CALLED DUE TO CHANGE OF CONDITION. NO RESPONSE TO STERNUM RUB, ABG WAS DONE AND RESULTS WERE NORMAL. SX W/ BRIGHT RED SECRETIONS DUE TO UNKNOWN CAUSE, NO MUCOUS PLUGGED NOTED. PT REGAIN CONSCIOUS AND SKIN COLOR WENT BACK TO NORMAL. PLACED PT BACK ON CA 28% SPO2 AND HR WITHIN NORMAL LIMITS. WILL CONTINUE TO MONITOR.
--- NOTE | 2019-10-27 11:49 | NUR ---
Pt asked LOVE Jiménez to call RT for suctioning. RT Neville came to suction pt and found pt unresponsive, pale, drooling. BP 168/81 HR 97 at 1133 am. Blood sugar 143. RT Neville ambubagging pt. No mucus plug noted. Suction tubing blood-tinged. Rapid response team at bedside. Rechecked BP at 1140 and it was 202/101 HR 89. ABG result pH 7.314 pCO2 38.3 pO2 477.8 HCO3 19.0 BE 6.6. Pt opens his eyes with painful stimuli (sternum rub) but still lethargic. BP 156/91 HR 96. Pt opens his eyes when name is called, makes eye contact. Paged Dr Day (farm labor contractor for Dr Valles) and left message with Alisha.
--- NOTE | 2019-10-27 12:37 | NUR ---
Pt alert and able to make gestures. Pt ate 25% of lunch. ST Deleon working with pt and he is following simple commands. BP 161/81 HR 82.
--- NOTE | 2019-10-27 13:01 | NUR ---
Paged Dr Day again. Left message with
--- NOTE | 2019-10-27 13:24 | NUR ---
Dr Treadwell called. He ordered to do CBC Chem 7 and UA. Informed pt's sister of change in condition and new orders. Addendum: 10/27/19 at 1325 by TIMOTEO VERDIN RN Also mathew Craft
[2019-10-27 14:28] LABS: BASOPHILS % (AUTO) 0.2 % (0.0-2.0); EOSINOPHILS % (AUTO) 5.3 % (0.0-6.0); HEMATOCRIT 29 % (39-51); HEMOGLOBIN 9.9 g/dL (13.5-17.5); LYMPHOCYTES # (AUTO) 0.7 /CMM (0.8-4.8); LYMPHOCYTES % (AUTO) 4.3 % (20.0-44.0); MEAN CORPUSCULAR HGB CONC 34 g/dl (31.0-36.0); MEAN CORPUSCULAR VOLUME 89 fL (80-96); MONOCYTES % (AUTO) 6.7 % (2.0-12.0); NEUTROPHILS # (AUTO) 12.9 /CMM (1.8-8.9); NEUTROPHILS % (AUTO) 83.5 % (43.0-81.0); PLATELET COUNT (AUTO) 195 /CMM (150-450); RED BLOOD CELL COUNT(AUTO) 3.28 MIL/uL (4.5-6.0); WHITE BLOOD COUNT (AUTO) 15.5 K/uL (4.3-11.0)
[2019-10-27 14:37] LABS: CALCIUM, SERUM 9.5 mg/dL (8.5-10.1); CREATININE 3.3 mg/dL (0.6-1.3); POTASSIUM 4.6 mmol/L (3.5-5.1)
--- NOTE | 2019-10-27 15:34 | NUR ---
Paged Dr Treadwell to relay lab results. Left message with Jackie.
--- NOTE | 2019-10-27 16:59 | NUR ---
Dr Treadwell called back. Relayed lab results to him. He said results are fine. He ordered to do CXR in AM.
[2019-10-27] MEDS: NEPRO 1,000 ML BOTTLE GT PRN (17:52)
[2019-10-27 19:46] LABS: APPEARANCE,URINE SL CLOUDY (CLEAR); BILIRUBIN,URINE NEGATIVE (NEGATIVE); BLOOD, URINE NEGATIVE Ery/uL (NEGATIVE); COLOR,URINE YELLOW (YELLOW); KETONES,URINE NEGATIVE (NEGATIVE); LEUKOCYTE ESTERASE ,URINE NEGATIVE (NEGATIVE); NITRITE, URINE NEGATIVE (NEGATIVE); PROTEIN,URINE >=300 mg/dl (NEGATIVE); UGLUCOSE 100 MG/DL mg/dL (NEGATIVE); UROBILINOGEN,URINE 0.2 EU/dL (0.2)
--- NOTE | 2019-10-27 20:04 | NUR ---
RT NOTE: RECEIVED TRACH PT ON COOL AEROSOL. AMBU BAG @ BEDSIDE. Q6 BREATHING TX GIVEN PER MD ORDERS WITH NO ADVERSE REACTION NOTED. SX DONE PRN. TRACH PATENT AND SECURED. TRACH CARE DONE. NO RESP DISTRESS NOTED AT THIS TIME. WILL CONTINUE TO MONITOR PT Addendum: 10/28/19 at 0248 by GATO MICHELE RT Amended: Links added.
[2019-10-27 20:25] VITALS: BP 139/77
--- NOTE | 2019-10-27 20:29 | NUR ---
Patient sister Cassia called and updated.Patient Vitals stable at this time.Bed bath provided to pt and tolerated well.Will continue to monitor.
[2019-10-27] MEDS: SENNOSIDES 8.6 MG TABLET GT SCH (21:31)
[2019-10-28] MEDS: ALBUTEROL FS 2.5 MG/0.5 ML VIAL.NEB NEB SCH ×4 (01:51→19:21)
[2019-10-28] MEDS: IPRATROPIUM NEB FS 0.5 MG/2.5 ML AMPUL.NEB NEB SCH ×4 (01:51→19:21)
[2019-10-28] MEDS: METOCLOPRAMIDE HCL 10 MG/10 ML UDC GT SCH ×3 (04:43→20:57)
[2019-10-28] MEDS: CLONIDINE HCL 0.1 MG TABLET GT SCH ×3 (04:43→20:56)
[2019-10-28] MEDS: LABETALOL HCL (100MG) 100 MG TABLET GT SCH ×3 (04:43→20:57)
[2019-10-28] MEDS: NEPRO 1,000 ML BOTTLE GT PRN (04:43)
[2019-10-28] MEDS: hydrALAZINE HCL 25 MG TABLET GT SCH ×3 (04:43→20:56)
[2019-10-28] MEDS: BLOOD SUGAR DIAGNOSTIC 1 EACH STRIP IN SCH ×4 (05:41→23:44)
[2019-10-28] MEDS: INSULIN ASPART/LISPRO 100 UNIT/ML CARTRIDGE SQ PRN ×4 (05:42→23:45)
--- NOTE | 2019-10-28 06:16 | NUR ---
Patient stable during the night.Patient needs frequent suctioning d/t increased thick secretions.Afebrile.Will continue to monitor.
--- NOTE | 2019-10-28 06:45 | NUR ---
Patient with SOB while doing diaper change suctioned patient and noted with mucus plugged in the inner cannula.SOB resolved after deep suctioning and lavage.Will continue to monitor.
[2019-10-28 07:47] VITALS: BP 155/77
[2019-10-28] MEDS: LEVETIRACETAM SOL (5 ML) 100 MG/ML UDC GT SCH ×2 (09:00→20:57)
[2019-10-28] MEDS: AMLODIPINE BESYLATE 10 MG TABLET GT SCH (09:00)
[2019-10-28] MEDS: DOXAZOSIN MESYLATE (4 MG) 4 MG TABLET GT SCH ×2 (09:00→20:56)
[2019-10-28] MEDS: NYSTATIN CREAM 15 GM TUBE TP SCH ×2 (09:00→20:58)
[2019-10-28] MEDS: ACETAMINOPHEN 650 MG/20 ML UDC- SA PATIENTS-PAIN ONLY GT SCH (09:00)
[2019-10-28] MEDS: Z GUARD REMEDY 4 OZ OINT TP SCH ×2 (09:00→20:58)
[2019-10-28] MEDS: CHLORHEXIDINE GLUCONATE 15 ML UDC MM SCH (09:00)
[2019-10-28] MEDS: FERROUS SULFATE UDC 300 MG/5 ML UDC GT SCH (09:00)
[2019-10-28] MEDS: SITAGLIPTIN PHOSPHATE 50 MG TABLET GT SCH (09:00)
[2019-10-28] MEDS: NEOMY SULF/BACITRAC ZN/POLY 15 GM TUBE TP SCH ×2 (09:00→20:58)
[2019-10-28] MEDS: ISOSORBIDE DINITRATE (20MG) 20 MG TABLET GT SCH ×3 (09:00→17:42)
[2019-10-28] MEDS: VIT B CMPLX 3/FA/VIT C/BIOTIN 1 TAB TABLET GT SCH (09:00)
[2019-10-28] MEDS: MINOXIDIL (2.5MG) 2.5 MG TABLET GT SCH (09:00)
[2019-10-28] MEDS: MINERAL OIL/PETROL OINT 396 GM JAR TP SCH ×2 (09:00→20:57)
[2019-10-28] MEDS: LACTOBACILLUS RHAMNOSUS GG 1 EACH CAP.SPRINK GT SCH ×2 (09:00→17:42)
[2019-10-28] MEDS: DOCUSATE SODIUM LIQ 100 MG/10 ML UDC GT SCH ×2 (09:00→20:57)
[2019-10-28] MEDS: FAMOTIDINE (20 MG) 20 MG TABLET GT SCH (09:00)
[2019-10-28] MEDS: BASAGLAR SQ SCH ×2 (09:00→20:57)
[2019-10-28] MEDS: INSULIN GLARGINE SQ SCH ×2 (09:00→20:57)
[2019-10-28] MEDS: TRIAMCINOLONE ACETONIDE 0.1% CR 15 GM TUBE TP SCH ×2 (09:00→20:57)
[2019-10-28] MEDS: HYDROGEN PEROXIDE 480 ML BOTTLE TP SCH ×2 (09:29→20:58)
--- NOTE | 2019-10-28 11:04 | NUR ---
Notified Dr. Braun result of chest Xray 10/28/19 and made him aware that patient with episode of being unresponsive, pale to grayish color yesterday, no mucous plug noted at that time but per report last night patient had another episode of difficulty breathing and cough out mucous when staff removed inner cannula. New order given by Dr. Braun for Mucomyst inhalation. RT informed.
[2019-10-28] MEDS ORDERED: ALBUTEROL FS 2.5 MG/0.5 ML VIAL.NEB NEB PRN (12:00)
[2019-10-28] MEDS ORDERED: IPRATROPIUM NEB FS 0.5 MG/2.5 ML AMPUL.NEB NEB PRN (12:00)
[2019-10-28] MEDS: ACETYLCYSTEINE 10% SOLN 400 MG/4 ML VIAL IH SCH (20:56)
[2019-10-28] MEDS: SENNOSIDES 8.6 MG TABLET GT SCH (21:05)
[2019-10-28 22:08] VITALS: BP 138/71
[2019-10-29] MEDS: DOXYCYCLINE HYCLATE (100 MG) 100 MG TABLET GT SCH (01:00)
[2019-10-29] MEDS: IPRATROPIUM NEB FS 0.5 MG/2.5 ML AMPUL.NEB NEB SCH ×4 (01:55→19:48)
[2019-10-29] MEDS: ALBUTEROL FS 2.5 MG/0.5 ML VIAL.NEB NEB SCH ×4 (01:55→19:48)
[2019-10-29] MEDS: hydrALAZINE HCL 25 MG TABLET GT SCH ×3 (04:55→21:14)
[2019-10-29] MEDS: LABETALOL HCL (100MG) 100 MG TABLET GT SCH ×3 (04:55→21:15)
[2019-10-29] MEDS: CLONIDINE HCL 0.1 MG TABLET GT SCH ×3 (04:55→21:14)
[2019-10-29] MEDS: METOCLOPRAMIDE HCL 10 MG/10 ML UDC GT SCH ×3 (04:55→21:14)
[2019-10-29] MEDS: NEPRO 1,000 ML BOTTLE GT PRN (04:55)
[2019-10-29] MEDS: BLOOD SUGAR DIAGNOSTIC 1 EACH STRIP IN SCH ×4 (05:46→23:16)
[2019-10-29] MEDS: INSULIN ASPART/LISPRO 100 UNIT/ML CARTRIDGE SQ PRN ×4 (05:46→23:17)
--- NOTE | 2019-10-29 06:15 | NUR ---
Pt called using call light, requesting for suctioning,having sob , removed inner cannula- noted cannula with thick red tinged secretions, also noted pt coughed with thick plug secretions after removing cannula, suction ,lavaged tolerated well by pt, sob resolved after suctioning. Spo2 98 % Hr 90, continuos pulse ox monitoring. Call light within pt's reach.
[2019-10-29 06:45] LABS: BASOPHILS # (AUTO) 0.1 /CMM (0.0-0.2); BASOPHILS % (AUTO) 0.4 % (0.0-2.0); EOSINOPHILS % (AUTO) 6.7 % (0.0-6.0); HEMATOCRIT 27 % (39-51); HEMOGLOBIN 9.3 g/dL (13.5-17.5); LYMPHOCYTES # (AUTO) 0.9 /CMM (0.8-4.8); LYMPHOCYTES % (AUTO) 5.2 % (20.0-44.0); MEAN CORPUSCULAR HGB CONC 34 g/dl (31.0-36.0); MEAN CORPUSCULAR VOLUME 89 fL (80-96); MONOCYTES # (AUTO) 1.7 /CMM (0.1-1.30); MONOCYTES % (AUTO) 9.7 % (2.0-12.0); NEUTROPHILS # (AUTO) 13.5 /CMM (1.8-8.9); PLATELET COUNT (AUTO) 189 /CMM (150-450); RED BLOOD CELL COUNT(AUTO) 3.08 MIL/uL (4.5-6.0); WHITE BLOOD COUNT (AUTO) 17.3 K/uL (4.3-11.0)
[2019-10-29 07:24] LABS: ALBUMIN 2.9 g/dL (3.4-5.0); BILIRUBIN,TOTAL 0.4 mg/dL (0.2-1.0); CALCIUM, SERUM 9.8 mg/dL (8.5-10.1); CREATININE 3.5 mg/dL (0.6-1.3); MAGNESIUM 2.5 mg/dL (1.8-2.4); POTASSIUM 4.6 mmol/L (3.5-5.1); TOTAL PROTEIN, SERUM 7.4 g/dL (6.4-8.2)
[2019-10-29] MEDS: ACETYLCYSTEINE 10% SOLN 400 MG/4 ML VIAL IH SCH ×2 (08:01→19:49)
[2019-10-29 08:10] VITALS: BP 128/51
--- NOTE | 2019-10-29 08:17 | NUR ---
Dr. Treadwell came to see patient, informed MD of BMP, BUN 90, Creat 3.5 and CBC, WBC 17.3. and the rest of the labs. Dr. Treadwell said that he will review the labs and ordered to refer increasing WBC to ID c/o EMAIL CAMPAIGN SPECIALIST Bess Deluca. Notified EMAIL CAMPAIGN SPECIALIST of recent BMP and CBC result with BC, urine cx and sputum culture results still pending. Afebrile, VS 98.5, 86, 14, 98%, 128/51. NNO given at this time.
[2019-10-29] MEDS: HYDROGEN PEROXIDE 480 ML BOTTLE TP SCH ×2 (09:00→19:48)
[2019-10-29] MEDS: AMLODIPINE BESYLATE 10 MG TABLET GT SCH (09:02)
[2019-10-29] MEDS: DOXAZOSIN MESYLATE (4 MG) 4 MG TABLET GT SCH ×2 (09:02→21:14)
[2019-10-29] MEDS: MINOXIDIL (2.5MG) 2.5 MG TABLET GT SCH (09:02)
[2019-10-29] MEDS: DOCUSATE SODIUM LIQ 100 MG/10 ML UDC GT SCH ×2 (09:02→21:14)
[2019-10-29] MEDS: FERROUS SULFATE UDC 300 MG/5 ML UDC GT SCH (09:02)
[2019-10-29] MEDS: LACTOBACILLUS RHAMNOSUS GG 1 EACH CAP.SPRINK GT SCH ×2 (09:02→17:18)
[2019-10-29] MEDS: VIT B CMPLX 3/FA/VIT C/BIOTIN 1 TAB TABLET GT SCH (09:02)
[2019-10-29] MEDS: LEVETIRACETAM SOL (5 ML) 100 MG/ML UDC GT SCH ×2 (09:02→21:14)
[2019-10-29] MEDS: SITAGLIPTIN PHOSPHATE 50 MG TABLET GT SCH (09:02)
[2019-10-29] MEDS: ISOSORBIDE DINITRATE (20MG) 20 MG TABLET GT SCH ×3 (09:02→17:18)
[2019-10-29] MEDS: FAMOTIDINE (20 MG) 20 MG TABLET GT SCH (09:02)
[2019-10-29] MEDS: CHLORHEXIDINE GLUCONATE 15 ML UDC MM SCH (09:03)
[2019-10-29] MEDS: ACETAMINOPHEN 650 MG/20 ML UDC- SA PATIENTS-PAIN ONLY GT SCH (09:03)
[2019-10-29] MEDS: BASAGLAR SQ SCH ×2 (09:04→21:17)
[2019-10-29] MEDS: INSULIN GLARGINE SQ SCH ×2 (09:04→21:17)
[2019-10-29 09:58] LABS: THYROID STIMULATING HORMONE 2.389 uIU/mL (0.358-3.74)
--- NOTE | 2019-10-29 10:28 | NUR ---
Notified Dr. Braun that according to report from the cook specialty foreign food, patient's inner cannula is being removed for suctioning and for him to breath better, however once inner cannula is replaced, he accumulates mucous plug at the tip of the cannula. Currently patient receiving Mucomyst inhalation. Dr. Braun ordered Chest Xray and ABG. Order carried out.
[2019-10-29 10:56] LABS: ABG OXYGEN SATURATION 97.5 % (92.0-98.5); ABG PCO2 40.1 mmHg (35.0-45.0); ABG PH 7.421 (7.350-7.450); ABG PO2 110.3 mmHg (75.0-100.0); COHb 0.1 % (0.5-1.5); MetHb 0.6 % (0.0-1.5); O2Hb 96.8 % (94.0-97.0); SITE, ABG Left Radial; VENT MODE, BG C/A 5LPM @ 28%
--- NOTE | 2019-10-29 11:25 | NUR ---
Reported ABG result to MD Shin, JINO given. Informed MD that per RT, patient's inner cannula has been changed 3x already at this time due to accumulation of mucous. Frequent visual rounds and suctioning done.
[2019-10-29] MEDS: NYSTATIN CREAM 15 GM TUBE TP SCH ×2 (12:07→21:17)
[2019-10-29] MEDS: Z GUARD REMEDY 4 OZ OINT TP SCH ×2 (12:07→21:17)
[2019-10-29] MEDS: TRIAMCINOLONE ACETONIDE 0.1% CR 15 GM TUBE TP SCH ×2 (12:07→21:17)
[2019-10-29] MEDS: NEOMY SULF/BACITRAC ZN/POLY 15 GM TUBE TP SCH ×3 (12:07→21:17)
[2019-10-29] MEDS: MINERAL OIL/PETROL OINT 396 GM JAR TP SCH ×2 (12:07→21:17)
[2019-10-29 15:36] LABS: APPEARANCE,URINE CLOUDY (CLEAR); BILIRUBIN,URINE NEGATIVE (NEGATIVE); BLOOD, URINE TRACE-INTA Ery/uL (NEGATIVE); COLOR,URINE YELLOW (YELLOW); KETONES,URINE NEGATIVE (NEGATIVE); LEUKOCYTE ESTERASE ,URINE SMALL (NEGATIVE); NITRITE, URINE NEGATIVE (NEGATIVE); PH,URINE 5.5 (5.0-8.0); PROTEIN,URINE >=300 mg/dl (NEGATIVE); UGLUCOSE 250 MG/DL mg/dL (NEGATIVE); UROBILINOGEN,URINE 0.2 EU/dL (0.2)
[2019-10-29 15:52] LABS: BACTERIA,URINE 4+ /HPF (None Seen); SQUAMOUS EPITHELIAL CELL,UR 0-2 /HPF (None Seen)
[2019-10-29 15:53] LABS: FINE GRANULAR CASTS,URINE Few /LPF (None Seen)
--- NOTE | 2019-10-29 17:06 | NUR ---
RT NOTE: RECEIVED TRACH PT ON COOL AEROSOL. AMBU BAG @ BEDSIDE. Q6 BREATHING TX GIVEN PER MD ORDERS WITH NO ADVERSE REACTION NOTED. SX DONE Q2 HRS AND LAVAGED. INNER CANNULA HAD TO BE CHANGED MULTIPLE TIMES DUE TO MUCOUS ACCUMULATION. TRACH PATENT AND SECURED. TRACH CARE DONE. NO RESP DISTRESS NOTED AT THIS TIME. WILL CONTINUE TO MONITOR PT
--- NOTE | 2019-10-29 17:39 | NUR ---
Resident seen and examined by MILITARY LAWYER Bess Deluca, she assessed patient's skin and reviewed current labs, urinalysis with pending culture result. New order given to start IV ATB Cefepime for UTI, Doxyclycine for cellulitis, Claritin for itching and Elimite cream as prophylactic treatment for scabies. Resident with rashes in the arms, hands and legs. Order faxed to pharmacy. [facility] IV pharmacist to call back if IV Cefepime is covered or not by patient's insurance.
--- NOTE | 2019-10-29 18:03 | NUR ---
Received a call from [facility] IV pharmacist, said Cefepime is covered by patient's insurance and will send the medication. [facility] pharmacy informed.
--- NOTE | 2019-10-29 18:23 | NUR ---
Spoke with Del Mustafa, patient's responsible democrat informing him that patient's WBC is elevated and ID consult was initiated. Patient noted with boil/folliculitis in his buttocks and rashes in the arms, hands and legs. ID ordered ATB, Claritin and Elimite cream 5%, scabies prophylaxis. Mr. Mustafa appreciated the call.
[2019-10-29] MEDS ORDERED: PERMETHRIN 5% CRM 60 GM TUBE TP ONE (20:00)
[2019-10-29] MEDS: CEFEPIME 1 GM in IV D5W 50 ML IV SCH (21:00)
[2019-10-29] MEDS: BACI/NEOM/POLY B OINT PKT 1 UDPKT PACKET TP SCH (21:17)
[2019-10-29] MEDS: SENNOSIDES 8.6 MG TABLET GT SCH (21:17)
[2019-10-29 21:18] VITALS: BP 145/78
[2019-10-30] MEDS: DOXYCYCLINE HYCLATE (100 MG) 100 MG TABLET GT SCH ×2 (01:00→12:00)
[2019-10-30] MEDS: IPRATROPIUM NEB FS 0.5 MG/2.5 ML AMPUL.NEB NEB SCH ×4 (01:32→19:43)
[2019-10-30] MEDS: ALBUTEROL FS 2.5 MG/0.5 ML VIAL.NEB NEB SCH ×4 (01:32→19:44)
--- NOTE | 2019-10-30 03:42 | NUR ---
Changed inner cannula d/t plug. suctioning done tolerated well. will continue to monitor.
--- NOTE | 2019-10-30 04:35 | NUR ---
Pt called requesting to be changed, noted diaper wet, [employer]OL AND RECOVERY SPECIAL [employer]ACTICS attended pt's needs, kept pt clean and dry. Bladder scanned done post- void ,noted with 191 cc urine, special agent in charge nurse update. Pt denies pain or discomfort. Safety observed, call light within pt's reach.
[2019-10-30] MEDS: CLONIDINE HCL 0.1 MG TABLET GT SCH ×3 (04:51→20:43)
[2019-10-30] MEDS: METOCLOPRAMIDE HCL 10 MG/10 ML UDC GT SCH ×3 (04:51→20:45)
[2019-10-30] MEDS: hydrALAZINE HCL 25 MG TABLET GT SCH ×3 (04:51→20:42)
[2019-10-30] MEDS: LABETALOL HCL (100MG) 100 MG TABLET GT SCH (04:51)
[2019-10-30] MEDS: NEPRO 1,000 ML BOTTLE GT PRN (04:52)
[2019-10-30] MEDS: BLOOD SUGAR DIAGNOSTIC 1 EACH STRIP IN SCH ×3 (05:27→17:05)
[2019-10-30] MEDS: INSULIN ASPART/LISPRO 100 UNIT/ML CARTRIDGE SQ PRN ×3 (05:28→18:29)
--- NOTE | 2019-10-30 05:41 | NUR ---
RT NOTE PATIENT RECEIVED ON TRACH WITH COOL AEROSOL AND VENTILATOR AT THE BEDSIDE. TRACH IS PATENT AND SECURED. SPARE TRACH AND AMBU BAG IS AT BEDSIDE. PATIENT HAS EQUAL CHEST RISE WITH COARSE TO DIMINISHED BILATERAL BREATH SOUNDS. SUCTION SMALL AMOUNT OF PINK TINGED THICK SECRETIONS T/O THE NIGHT. INNER CANNULA CLOGGED AND WAS REPLACED BY RN. MUCOMYST WAS GIVEN TO REDUCED VISCOSITY OF SECRETIONS. Addendum: 10/30/19 at 0545 by DIA PIERRE RT Amended: Links added.
[2019-10-30 07:39] VITALS: BP 127/63
[2019-10-30] MEDS: ACETYLCYSTEINE 10% SOLN 400 MG/4 ML VIAL IH SCH ×2 (08:01→20:43)
[2019-10-30] MEDS: FERROUS SULFATE UDC 300 MG/5 ML UDC GT SCH (09:00)
[2019-10-30] MEDS: NEOMY SULF/BACITRAC ZN/POLY 15 GM TUBE TP SCH ×4 (09:00→20:46)
[2019-10-30] MEDS: INSULIN GLARGINE SQ SCH ×2 (09:00→20:55)
[2019-10-30] MEDS: CHLORHEXIDINE GLUCONATE 15 ML UDC MM SCH (09:00)
[2019-10-30] MEDS: BASAGLAR SQ SCH ×2 (09:00→20:55)
[2019-10-30] MEDS: FAMOTIDINE (20 MG) 20 MG TABLET GT SCH (09:00)
[2019-10-30] MEDS: BACI/NEOM/POLY B OINT PKT 1 UDPKT PACKET TP SCH ×2 (09:00→20:47)
[2019-10-30] MEDS: ISOSORBIDE DINITRATE (20MG) 20 MG TABLET GT SCH ×3 (09:00→16:48)
[2019-10-30] MEDS: MINOXIDIL (2.5MG) 2.5 MG TABLET GT SCH (09:00)
[2019-10-30] MEDS: SITAGLIPTIN PHOSPHATE 50 MG TABLET GT SCH (09:00)
[2019-10-30] MEDS: DOXAZOSIN MESYLATE (4 MG) 4 MG TABLET GT SCH ×2 (09:00→20:43)
[2019-10-30] MEDS: VIT B CMPLX 3/FA/VIT C/BIOTIN 1 TAB TABLET GT SCH (09:00)
[2019-10-30] MEDS: NYSTATIN CREAM 15 GM TUBE TP SCH ×2 (09:00→20:46)
[2019-10-30] MEDS: MINERAL OIL/PETROL OINT 396 GM JAR TP SCH ×2 (09:00→20:46)
[2019-10-30] MEDS: ACETAMINOPHEN 650 MG/20 ML UDC- SA PATIENTS-PAIN ONLY GT SCH (09:00)
[2019-10-30] MEDS: AMLODIPINE BESYLATE 10 MG TABLET GT SCH (09:00)
[2019-10-30] MEDS: Z GUARD REMEDY 4 OZ OINT TP SCH ×2 (09:00→20:47)
[2019-10-30] MEDS: LEVETIRACETAM SOL (5 ML) 100 MG/ML UDC GT SCH ×2 (09:00→20:45)
[2019-10-30] MEDS: HYDROGEN PEROXIDE 480 ML BOTTLE TP SCH ×2 (09:00→19:44)
[2019-10-30] MEDS: TRIAMCINOLONE ACETONIDE 0.1% CR 15 GM TUBE TP SCH ×2 (09:00→20:46)
[2019-10-30] MEDS: LORATADINE 10 MG TABLET GT SCH (09:00)
[2019-10-30] MEDS: DOCUSATE SODIUM LIQ 100 MG/10 ML UDC GT SCH ×2 (09:00→20:43)
[2019-10-30] MEDS: LACTOBACILLUS RHAMNOSUS GG 1 EACH CAP.SPRINK GT SCH ×2 (09:00→16:46)
[2019-10-30] MEDS: LABETALOL HCL 300 MG TABLET GT SCH ×2 (13:47→20:45)
[2019-10-30 19:53] VITALS: BP 141/73
--- NOTE | 2019-10-30 20:53 | NUR ---
RT NOTE: RECEIVED TRACH PT ON COOL AEROSOL. AMBU BAG @ BEDSIDE. Q6/Q12 BREATHING TX GIVEN PER MD ORDERS WITH NO ADVERSE REACTION NOTED. SX DONE PRN. TRACH PATENT AND SECURED. TRACH CARE DONE. NO RESP DISTRESS NOTED AT THIS TIME. WILL CONTINUE TO MONITOR PT Addendum: 10/31/19 at 0255 by GATO MICHELE RT Amended: Links added.
[2019-10-30] MEDS: CEFEPIME 1 GM in IV D5W 50 ML IV SCH (21:22)
[2019-10-30] MEDS: SENNOSIDES 8.6 MG TABLET GT SCH (21:58)
[2019-10-31] MEDS: INSULIN ASPART/LISPRO 100 UNIT/ML CARTRIDGE SQ PRN ×5 (01:04→23:23)
[2019-10-31] MEDS: ALBUTEROL FS 2.5 MG/0.5 ML VIAL.NEB NEB SCH ×4 (01:59→19:50)
[2019-10-31] MEDS: IPRATROPIUM NEB FS 0.5 MG/2.5 ML AMPUL.NEB NEB SCH ×4 (01:59→19:50)
[2019-10-31] MEDS: hydrALAZINE HCL 25 MG TABLET GT SCH ×3 (05:54→21:10)
[2019-10-31] MEDS: CLONIDINE HCL 0.1 MG TABLET GT SCH ×3 (05:54→21:10)
[2019-10-31] MEDS: LABETALOL HCL 300 MG TABLET GT SCH ×3 (05:55→21:10)
[2019-10-31] MEDS: METOCLOPRAMIDE HCL 10 MG/10 ML UDC GT SCH ×3 (05:55→21:10)
[2019-10-31] MEDS: BLOOD SUGAR DIAGNOSTIC 1 EACH STRIP IN SCH ×5 (05:56→23:22)
[2019-10-31 07:31] VITALS: BP 150/71
[2019-10-31] MEDS: ACETYLCYSTEINE 10% SOLN 400 MG/4 ML VIAL IH SCH ×2 (08:57→20:40)
[2019-10-31] MEDS: DOXAZOSIN MESYLATE (4 MG) 4 MG TABLET GT SCH ×2 (09:28→21:10)
[2019-10-31] MEDS: FERROUS SULFATE UDC 300 MG/5 ML UDC GT SCH (09:29)
[2019-10-31] MEDS: LACTOBACILLUS RHAMNOSUS GG 1 EACH CAP.SPRINK GT SCH ×2 (09:29→17:57)
[2019-10-31] MEDS: DOCUSATE SODIUM LIQ 100 MG/10 ML UDC GT SCH ×2 (09:29→21:10)
[2019-10-31] MEDS: LORATADINE 10 MG TABLET GT SCH (09:29)
[2019-10-31] MEDS: LEVETIRACETAM SOL (5 ML) 100 MG/ML UDC GT SCH ×2 (09:30→21:10)
[2019-10-31] MEDS: SITAGLIPTIN PHOSPHATE 50 MG TABLET GT SCH (09:30)
[2019-10-31] MEDS: MINOXIDIL (2.5MG) 2.5 MG TABLET GT SCH (09:30)
[2019-10-31] MEDS: ISOSORBIDE DINITRATE (20MG) 20 MG TABLET GT SCH ×3 (09:30→17:57)
[2019-10-31] MEDS: VIT B CMPLX 3/FA/VIT C/BIOTIN 1 TAB TABLET GT SCH (09:30)
[2019-10-31] MEDS: AMLODIPINE BESYLATE 10 MG TABLET GT SCH (09:31)
[2019-10-31] MEDS: FAMOTIDINE (20 MG) 20 MG TABLET GT SCH (09:31)
[2019-10-31] MEDS: ACETAMINOPHEN 650 MG/20 ML UDC- SA PATIENTS-PAIN ONLY GT SCH (09:32)
[2019-10-31] MEDS: CHLORHEXIDINE GLUCONATE 15 ML UDC MM SCH (09:33)
[2019-10-31] MEDS: INSULIN GLARGINE SQ SCH ×2 (09:35→21:11)
[2019-10-31] MEDS: BASAGLAR SQ SCH ×2 (09:35→21:11)
[2019-10-31] MEDS: HYDROGEN PEROXIDE 480 ML BOTTLE TP SCH ×2 (09:54→19:50)
--- NOTE | 2019-10-31 09:58 | NUR ---
PT RECEIVE STABLE ON 28% FION C/A VIA T-BAR, TRACH PATENT AND SECURED, SECRETIONS ARE S/M BLOOD TINGED , AT 0945 INCREASE FIO2 TO 35% PT SPO2 WAS 90-92%, SPO2 NOW AT > OR EQUAL TO 94%, WILL CONTINUE TO MONITOR Addendum: 10/31/19 at 1001 by GILBERT ROGERS RT Amended: Links added.
[2019-10-31] MEDS: Z GUARD REMEDY 4 OZ OINT TP SCH ×2 (10:32→21:12)
[2019-10-31] MEDS: TRIAMCINOLONE ACETONIDE 0.1% CR 15 GM TUBE TP SCH (10:32)
[2019-10-31] MEDS: NEOMY SULF/BACITRAC ZN/POLY 15 GM TUBE TP SCH ×4 (10:32→21:12)
[2019-10-31] MEDS: NYSTATIN CREAM 15 GM TUBE TP SCH (10:32)
[2019-10-31] MEDS: MINERAL OIL/PETROL OINT 396 GM JAR TP SCH ×2 (10:32→21:12)
[2019-10-31] MEDS: BACI/NEOM/POLY B OINT PKT 1 UDPKT PACKET TP SCH ×2 (10:32→21:12)
[2019-10-31] MEDS: NEPRO 1,000 ML BOTTLE GT PRN (12:26)
[2019-10-31] MEDS: DOXYCYCLINE HYCLATE (100 MG) 100 MG TABLET GT SCH ×3 (12:46→23:22)
--- NOTE | 2019-10-31 16:10 | NUR ---
Pt has not voided during this shift. Bladder scan showed 323 mL of urine in the bladder. Pt was offered the urinal but he said he cannot void. Notified MAYRA Hoang. She ordered to place a Herrera catheter and do BMP in AM. She also said to ask Dr Valles if he wants to do a urology consult. Addendum: 10/31/19 at 1619 by TIMOTEO VERDIN RN MAYRA Hoang said pt has a history of stones and obstruction. She took care of pt in previous facility.
--- NOTE | 2019-10-31 16:22 | NUR ---
Called Dr Valles's office and left message with Ana. Dr Valles called back immediately. Informed him that pt did not void during this shift, MAYRA Hoang ordered to place a Herrera catheter and asked him if he wanted to do a urology consult. Dr Valles ordered to do bladder scans q 6 hours and do in and out catheterization if urine is more than 250 mL. He said to DC Herrera catheter. No urology consult ordered. Addendum: 10/31/19 at 1631 by TIMOTEO VERDIN RN 200 mL, not 250 mL
--- NOTE | 2019-10-31 16:30 | NUR ---
Herrera catheter was placed then DC'd. 350 mL of urine output obtained.
--- NOTE | 2019-10-31 17:19 | NUR ---
Called pt's uncle Keith. Notified him that pt did not void during this shift, Dr Valles ordered bladder scan q 6 PRN if pt not voiding, then in and out catheterization if urinary retention is more than 200 mL. Keith appreciated call.
[2019-10-31 20:20] VITALS: BP 145/74
[2019-10-31] MEDS: CEFEPIME 1 GM in IV D5W 50 ML IV SCH (21:07)
[2019-10-31] MEDS: SENNOSIDES 8.6 MG TABLET GT SCH (21:12)
--- NOTE | 2019-11-01 | NUR ---
RN NOTES Per CIPHER EXPERT pt has not voided. Bladder scan done with 130ml urine residual. Will continue to monitor.
[2019-11-01] MEDS: IPRATROPIUM NEB FS 0.5 MG/2.5 ML AMPUL.NEB NEB SCH ×4 (02:05→19:48)
[2019-11-01] MEDS: ALBUTEROL FS 2.5 MG/0.5 ML VIAL.NEB NEB SCH ×4 (02:05→19:48)
[2019-11-01] MEDS: CLONIDINE HCL 0.1 MG TABLET GT SCH ×3 (05:29→21:04)
[2019-11-01] MEDS: hydrALAZINE HCL 25 MG TABLET GT SCH ×3 (05:29→21:03)
[2019-11-01] MEDS: METOCLOPRAMIDE HCL 10 MG/10 ML UDC GT SCH ×3 (05:29→21:06)
[2019-11-01] MEDS: BLOOD SUGAR DIAGNOSTIC 1 EACH STRIP IN SCH ×3 (05:30→17:29)
[2019-11-01] MEDS: LABETALOL HCL 300 MG TABLET GT SCH ×3 (05:30→21:06)
[2019-11-01] MEDS: INSULIN ASPART/LISPRO 100 UNIT/ML CARTRIDGE SQ PRN ×3 (05:31→17:31)
--- NOTE | 2019-11-01 06:00 | NUR ---
RN NOTES Per ELECTRIC METER TESTER pt has not voided. Bladder scan done with 175ml urine in bladder. Will endorse to following shift.
[2019-11-01 07:12] LABS: BASOPHILS % (AUTO) 0.2 % (0.0-2.0); EOSINOPHILS % (AUTO) 10.1 % (0.0-6.0); HEMATOCRIT 25 % (39-51); HEMOGLOBIN 8.5 g/dL (13.5-17.5); LYMPHOCYTES # (AUTO) 0.8 /CMM (0.8-4.8); LYMPHOCYTES % (AUTO) 5.1 % (20.0-44.0); MEAN CORPUSCULAR HGB CONC 34 g/dl (31.0-36.0); MEAN CORPUSCULAR VOLUME 89 fL (80-96); NEUTROPHILS # (AUTO) 11.8 /CMM (1.8-8.9); NEUTROPHILS % (AUTO) 72.6 % (43.0-81.0); PLATELET COUNT (AUTO) 226 /CMM (150-450); RED BLOOD CELL COUNT(AUTO) 2.84 MIL/uL (4.5-6.0); WHITE BLOOD COUNT (AUTO) 16.2 K/uL (4.3-11.0)
[2019-11-01 07:38] VITALS: BP 137/63
[2019-11-01 07:40] LABS: CALCIUM, SERUM 9.3 mg/dL (8.5-10.1); CREATININE 5.1 mg/dL (0.6-1.3); MAGNESIUM 2.6 mg/dL (1.8-2.4); PHOSPHORUS 4.2 mg/dL (2.5-4.9); POTASSIUM 4.7 mmol/L (3.5-5.1)
[2019-11-01] MEDS: ACETYLCYSTEINE 10% SOLN 400 MG/4 ML VIAL IH SCH ×2 (09:00→21:00)
[2019-11-01] MEDS: NEOMY SULF/BACITRAC ZN/POLY 15 GM TUBE TP SCH ×4 (09:00→21:08)
[2019-11-01] MEDS: MINERAL OIL/PETROL OINT 396 GM JAR TP SCH ×2 (09:00→21:08)
[2019-11-01] MEDS: Z GUARD REMEDY 4 OZ OINT TP SCH ×2 (09:00→21:08)
[2019-11-01] MEDS: BACI/NEOM/POLY B OINT PKT 1 UDPKT PACKET TP SCH ×2 (09:00→21:08)
[2019-11-01] MEDS: LORATADINE 10 MG TABLET GT SCH (09:20)
[2019-11-01] MEDS: DOXAZOSIN MESYLATE (4 MG) 4 MG TABLET GT SCH ×2 (09:20→21:04)
[2019-11-01] MEDS: DOCUSATE SODIUM LIQ 100 MG/10 ML UDC GT SCH ×2 (09:20→21:05)
[2019-11-01] MEDS: LEVETIRACETAM SOL (5 ML) 100 MG/ML UDC GT SCH ×2 (09:21→21:05)
[2019-11-01] MEDS: AMLODIPINE BESYLATE 10 MG TABLET GT SCH (09:21)
[2019-11-01] MEDS: FAMOTIDINE (20 MG) 20 MG TABLET GT SCH (09:21)
[2019-11-01] MEDS: SITAGLIPTIN PHOSPHATE 50 MG TABLET GT SCH (09:21)
[2019-11-01] MEDS: FERROUS SULFATE UDC 300 MG/5 ML UDC GT SCH (09:21)
[2019-11-01] MEDS: CHLORHEXIDINE GLUCONATE 15 ML UDC MM SCH (09:21)
[2019-11-01] MEDS: VIT B CMPLX 3/FA/VIT C/BIOTIN 1 TAB TABLET GT SCH (09:21)
[2019-11-01] MEDS: ISOSORBIDE DINITRATE (20MG) 20 MG TABLET GT SCH ×3 (09:21→17:29)
[2019-11-01] MEDS: ACETAMINOPHEN 650 MG/20 ML UDC- SA PATIENTS-PAIN ONLY GT SCH (09:21)
[2019-11-01] MEDS: LACTOBACILLUS RHAMNOSUS GG 1 EACH CAP.SPRINK GT SCH ×2 (09:21→17:29)
[2019-11-01] MEDS: MINOXIDIL (2.5MG) 2.5 MG TABLET GT SCH (09:21)
[2019-11-01] MEDS: INSULIN GLARGINE SQ SCH ×2 (09:22→21:46)
[2019-11-01] MEDS: BASAGLAR SQ SCH ×2 (09:22→21:46)
--- NOTE | 2019-11-01 09:25 | NUR ---
Seen by Dr Braun. Asked him if he wanted to change pt's trach to a bigger size since pt was having mucus plugs. Dr Braun ordered to have RT change trach to Portex # 7 if there is no resistance. Informed RT Zhong. Also notified Dr Braun that pt has not voided since yesterday, bladder scan showed 175 mL of urinary retention.
--- NOTE | 2019-11-01 11:22 | NUR ---
WOUND CARE CONSULT: RECEIVED CONSULT FOR RAISED AREAS ON BUTTOCKS, UNKNOWN ETIOLOGY. NO DRAINAGE NOTED. DEFER TO PLASTIC SURGERY TEAM CURRENTLY ON CASE. MSG LEFT FOR DR DUGAN. WILL SEE PRN.
--- NOTE | 2019-11-01 11:41 | NUR ---
RT PT RECEIVED ON COOL AEROSOL AT 10 LPM. TRACHED, PORTEX 6. NO RESPIRATORY DISTRESS. SPARE TRACH AT BEDSIDE. AMBU BAG AT HEAD OF BED. PER DR SARAH, PT CHANGED TO PORTEX 7. TOLERATED PROCEDURE WELL. SATURATING 92-96 ON 10 LPM. WILL CONTINUE TO MONITOR. Addendum: 11/01/19 at 1143 by MEHDI HAUSER RT Amended: Links added.
--- NOTE | 2019-11-01 12:15 | NUR ---
Seen by MORGAN Bowles. She ordered to apply warm compress on pt's buttocks. She the small raised bumps are probably pustules.
[2019-11-01] MEDS: DOXYCYCLINE HYCLATE (100 MG) 100 MG TABLET GT SCH ×2 (12:44→21:46)
--- NOTE | 2019-11-01 13:35 | NUR ---
Pt has not voided since yesterday. Bladder scan showed 170 mL of urinary retention. Pt wheezing and was given a breathing treatment by RT. Paged Dr Valles. Left message with Selena. Also left message regarding abnormal lab results.
--- NOTE | 2019-11-01 14:00 | NUR ---
Pt appears comfortable, no SOB noted.
[2019-11-01] MEDS: NEPRO 1,000 ML BOTTLE GT PRN (14:55)
--- NOTE | 2019-11-01 15:00 | NUR ---
Pt wheezing, SOB and not holding O2 saturation up to 92% and above. Pt placed back on AC 14 VT 550 PEEP +5 with FiO2 45%. Pt's O2 sat 93% on 45% FiO2, HR 87. Pt appears more comfortable once placed on the back on the vent. Dr Braun ordered CXR and ABG. Notified Keith. Addendum: 11/01/19 at 1637 by TIMOTEO VERDIN RN Also notified Dr Braun of Na 130 BUN 115 Cr 5.1.
[2019-11-01 16:21] LABS: ABG BASE EXCESS -0.3 mmol/L; ABG OXYGEN SATURATION 90.9 % (92.0-98.5); ABG PCO2 38.8 mmHg (35.0-45.0); ABG PH 7.413 (7.350-7.450); ABG PO2 61.1 mmHg (75.0-100.0); AaDO2 193.9 mmHg; COHb 0.2 % (0.5-1.5); MetHb 0.6 % (0.0-1.5); O2Hb 90.2 % (94.0-97.0); SITE, ABG Right Radial; VENT MODE, BG AC14 550 42%
--- NOTE | 2019-11-01 16:32 | NUR ---
Reminded MAYRA Kellogg that pt will be on Doxycycline and Cefepime for 5 days tomorrow, BUN 115 Cr 5.1, WBC 16.2, anuric since yesterday. Asked her if she wanted to order anything or if she wanted to give stop dates for antibiotics. She said she will see pt later today.
--- NOTE | 2019-11-01 16:53 | NUR ---
RT Mercado said ABG result was relayed to Dr Braun. Dr Braun ordered to titrate FiO2 to 50%. Pt appears comfortable at this time, appears to be sleeping, no SOB or wheezing noted. O2 sat 97% on FiO2 50%.
--- NOTE | 2019-11-01 17:35 | NUR ---
Paged Dr Treadwell. Spoke with
--- NOTE | 2019-11-01 18:00 | NUR ---
Still with no urine output, bladder scan done shows 200 cc, in and out cath done drained 300 ml dark yellow colored urine. Denies pain. Will continue to monitor.
--- NOTE | 2019-11-01 18:23 | NUR ---
Electrical Engineering Technologist Tamanna informed RAYMOND Og that primary MD has not returned calls. RAYMOND Og called Dr Treadwell. Dr Treadwell called back and said he thought Dr Valles called because he is the one precision inspector for Subacute. Informed him of lab results, episodes of SOB and desaturation, vent, anuria, antibiotics. He ordered to place a Herrera catheter so urine output can be monitored. He also ordered CBC and CMP in AM. Addendum: 11/01/19 at 1830 by TIMOTEO VERDIN RN Informed Dr Treadwell that bladder scan showed 200 mL of urinary retention. AMADO García said she obtained 300 mL with in and out catheterization.
--- NOTE | 2019-11-01 18:25 | NUR ---
Dr Day called. She said she was paged. Informed her that Dr Treadwell already called.
--- NOTE | 2019-11-01 20:30 | NUR ---
RN NOTES Received order from Dr. Treadwell, to collect urine for urine culture and UA. Will collect urine.
[2019-11-01 20:46] VITALS: BP 141/68
[2019-11-01] MEDS: HYDROGEN PEROXIDE 480 ML BOTTLE TP SCH (21:00)
--- NOTE | 2019-11-01 21:00 | NUR ---
RN NOTES Herrera catheter inserted and urine collected and sent to lab as ordered. Draining cloudy yellow urine. Will continue to monitor urine output.
[2019-11-01] MEDS: SENNOSIDES 8.6 MG TABLET GT SCH (21:08)
[2019-11-01] MEDS: CEFEPIME 1 GM in IV D5W 50 ML IV SCH (21:21)
[2019-11-02] MEDS: BLOOD SUGAR DIAGNOSTIC 1 EACH STRIP IN SCH ×5 (00:52→23:46)
[2019-11-02] MEDS: INSULIN ASPART/LISPRO 100 UNIT/ML CARTRIDGE SQ PRN ×5 (00:53→23:47)
[2019-11-02] MEDS: ALBUTEROL FS 2.5 MG/0.5 ML VIAL.NEB NEB SCH ×4 (01:30→20:08)
[2019-11-02] MEDS: IPRATROPIUM NEB FS 0.5 MG/2.5 ML AMPUL.NEB NEB SCH ×4 (01:30→20:08)
[2019-11-02] MEDS: CLONIDINE HCL 0.1 MG TABLET GT SCH ×3 (05:44→21:30)
[2019-11-02] MEDS: hydrALAZINE HCL 25 MG TABLET GT SCH ×3 (05:44→21:29)
[2019-11-02] MEDS: LABETALOL HCL 300 MG TABLET GT SCH ×3 (05:45→21:30)
[2019-11-02] MEDS: METOCLOPRAMIDE HCL 10 MG/10 ML UDC GT SCH ×3 (05:45→21:30)
[2019-11-02 07:39] VITALS: BP 132/63
[2019-11-02] MEDS: ACETYLCYSTEINE 10% SOLN 400 MG/4 ML VIAL IH SCH ×2 (08:05→20:08)
[2019-11-02] MEDS: HYDROGEN PEROXIDE 480 ML BOTTLE TP SCH ×2 (08:05→20:08)
[2019-11-02 08:17] LABS: BASOPHILS # (AUTO) 0.1 /CMM (0.0-0.2); BASOPHILS % (AUTO) 0.7 % (0.0-2.0); EOSINOPHILS % (AUTO) 7.8 % (0.0-6.0); HEMATOCRIT 25 % (39-51); HEMOGLOBIN 8.3 g/dL (13.5-17.5); LYMPHOCYTES # (AUTO) 0.9 /CMM (0.8-4.8); LYMPHOCYTES % (AUTO) 5.6 % (20.0-44.0); MEAN CORPUSCULAR HGB CONC 34 g/dl (31.0-36.0); MEAN CORPUSCULAR VOLUME 88 fL (80-96); MONOCYTES # (AUTO) 1.5 /CMM (0.1-1.30); MONOCYTES % (AUTO) 9.7 % (2.0-12.0); NEUTROPHILS % (AUTO) 76.2 % (43.0-81.0); PLATELET COUNT (AUTO) 230 /CMM (150-450); RED BLOOD CELL COUNT(AUTO) 2.81 MIL/uL (4.5-6.0); WHITE BLOOD COUNT (AUTO) 15.7 K/uL (4.3-11.0)
[2019-11-02 08:37] LABS: ALBUMIN 2.5 g/dL (3.4-5.0); BILIRUBIN,TOTAL 0.5 mg/dL (0.2-1.0); CALCIUM, SERUM 9.6 mg/dL (8.5-10.1); CREATININE 5.9 mg/dL (0.6-1.3); POTASSIUM 4.3 mmol/L (3.5-5.1); TOTAL PROTEIN, SERUM 7.5 g/dL (6.4-8.2)
[2019-11-02] MEDS ORDERED: IV NS 0.9% 1,000 ML IV PRN (08:49)
--- NOTE | 2019-11-02 08:52 | NUR ---
Reported chest x-ray result to Dr. Braun that shows pneumonia, No new order at this time. Per MD. current ATB is sufficient.
[2019-11-02] MEDS: BACI/NEOM/POLY B OINT PKT 1 UDPKT PACKET TP SCH ×2 (09:00→21:31)
[2019-11-02] MEDS: MINERAL OIL/PETROL OINT 396 GM JAR TP SCH ×2 (09:00→21:31)
[2019-11-02] MEDS: LORATADINE 10 MG TABLET GT SCH (09:00)
[2019-11-02] MEDS: Z GUARD REMEDY 4 OZ OINT TP SCH ×2 (09:00→21:31)
[2019-11-02] MEDS: NEOMY SULF/BACITRAC ZN/POLY 15 GM TUBE TP SCH ×4 (09:00→21:31)
--- NOTE | 2019-11-02 09:10 | NUR ---
Dr. Arvind Valles reviewed CBC and BMP result, made him aware of patient's urine output. New order given to repeat labs in AM and start patient on IVF NS at 75 cc/hr. Order carried out.
[2019-11-02] MEDS: DOXAZOSIN MESYLATE (4 MG) 4 MG TABLET GT SCH ×2 (09:43→21:29)
[2019-11-02] MEDS: VIT B CMPLX 3/FA/VIT C/BIOTIN 1 TAB TABLET GT SCH (09:44)
[2019-11-02] MEDS: ISOSORBIDE DINITRATE (20MG) 20 MG TABLET GT SCH ×3 (09:44→16:56)
[2019-11-02] MEDS: FAMOTIDINE (20 MG) 20 MG TABLET GT SCH (09:44)
[2019-11-02] MEDS: MINOXIDIL (2.5MG) 2.5 MG TABLET GT SCH (09:44)
[2019-11-02] MEDS: DOCUSATE SODIUM LIQ 100 MG/10 ML UDC GT SCH ×2 (09:44→21:30)
[2019-11-02] MEDS: LEVETIRACETAM SOL (5 ML) 100 MG/ML UDC GT SCH ×2 (09:44→21:30)
[2019-11-02] MEDS: LACTOBACILLUS RHAMNOSUS GG 1 EACH CAP.SPRINK GT SCH ×2 (09:44→16:56)
[2019-11-02] MEDS: AMLODIPINE BESYLATE 10 MG TABLET GT SCH (09:44)
[2019-11-02] MEDS: FERROUS SULFATE UDC 300 MG/5 ML UDC GT SCH (09:44)
[2019-11-02] MEDS: SITAGLIPTIN PHOSPHATE 50 MG TABLET GT SCH (09:44)
[2019-11-02] MEDS: CHLORHEXIDINE GLUCONATE 15 ML UDC MM SCH (09:45)
[2019-11-02] MEDS: ACETAMINOPHEN 650 MG/20 ML UDC- SA PATIENTS-PAIN ONLY GT SCH (09:45)
[2019-11-02] MEDS: INSULIN GLARGINE SQ SCH ×2 (09:47→21:31)
[2019-11-02] MEDS: BASAGLAR SQ SCH ×2 (09:47→21:31)
[2019-11-02] MEDS: RETACRIT 10,000 UNITS SQ SCH (11:00)
[2019-11-02] MEDS: IV NS 0.9% 1,000 ML IV PRN (11:37)
[2019-11-02] MEDS: DOXYCYCLINE HYCLATE (100 MG) 100 MG TABLET GT SCH ×2 (12:21→23:46)
--- NOTE | 2019-11-02 12:42 | NUR ---
Family was not able to attend today's Family Support Group held from 11am-12noon. SW will invite and encourage family to attend November's Family Support Group.
--- NOTE | 2019-11-02 12:44 | NUR ---
JOELLE received a call from 's pathology secretary/transcriptionist, Shashank [phone] stating that will be seeing the pt. today after 1:30pm instead of 12:30pm as previously scheduled. Noted. Family and charge nurse informed.
--- NOTE | 2019-11-02 14:33 | NUR ---
The patient was seen by Dentist, for annual dental exam and cleaning. JOELLE filed the Dental notes in pt.'s chart. Family Notified.
--- NOTE | 2019-11-02 14:59 | NUR ---
Seen and examined by Lidia Hoang NP, made aware that patient gained 16 lbs. NNO given at this time. Resident's urine output being monitored. Patient currently on IVF due to elevated BUN and creatinine. Resident's uncle Mr. Mustafa updated of patient's condition and recent orders. No SOB, patient remain of ventilator.
[2019-11-02] MEDS: NEPRO 1,000 ML BOTTLE GT PRN (16:59)
--- NOTE | 2019-11-02 17:04 | NUR ---
RT NOTE RECEIVED PATIENT ON TRACH WITH VENTILATOR. TRACH IS PATENT AND SECURED. VENT ALARMS ARE SET AND AUDIBLE. SPARE TRACH AND AMBU BAG IS AT BEDSIDE. PATIENT HAS EQUAL CHEST RISE WITH COARSE BILATERAL BREATH SOUNDS. SUCTION MODERATE AMOUNT OF THICK BLOOD TINGED SECRETIONS TROUGH OUT THE DAY. TRACH CARE WAS PERFORMED. BREATHING TREATMENTS GIVEN WITH NO ADVERSE REACTION. PATIENT IS SYNC AND COMFORTABLE ON THE VENTILATOR. NO SOB NOTED. Addendum: 11/02/19 at 1705 by DIA PIERRE RT Amended: Links added.
--- NOTE | 2019-11-02 19:30 | NUR ---
Ordered midline insertion d/t poor venous access. On IV continuous hydration for increase BUN and Creatinine ,on IV antibiotic for PNA.Will continue to monitor.
--- NOTE | 2019-11-02 20:39 | NUR ---
PT RCVD TRACH'D ON MECHANICAL VENT WITH CHARTED SETTINGS. PT LITZY TX WELL. SX DONE. PT TRACH IS PATENT AND SECURE. VENT ALARMS APPEAR TO BE FUNCTIONING PROPERLY. VENT PLUGGED INTO RED OUTLET. AMBU BAG AT BEDSIDE. NO SOB NOTED. Addendum: 11/02/19 at 2040 by LAST TIRADO RT Amended: Links added. Addendum: 11/03/19 at 0609 by LAST TIRADO RT PT FOUND ON THE FOLLOWING VENT SETTINGS: AC 14, 550, 40%, +5.
[2019-11-02] MEDS: CEFEPIME 1 GM in IV D5W 50 ML IV SCH (21:18)
[2019-11-02] MEDS: SENNOSIDES 8.6 MG TABLET GT SCH (21:31)
--- NOTE | 2019-11-02 22:00 | NUR ---
Right upper arm midline inserted gauge #18 by Midline nurse Jose Roberto,procedure tolerated well.
[2019-11-03] MEDS: ALBUTEROL FS 2.5 MG/0.5 ML VIAL.NEB NEB SCH ×4 (01:00→19:49)
[2019-11-03] MEDS: IPRATROPIUM NEB FS 0.5 MG/2.5 ML AMPUL.NEB NEB SCH ×4 (01:00→19:49)
[2019-11-03] MEDS: IV NS 0.9% 1,000 ML IV PRN ×2 (01:19→13:00)
[2019-11-03] MEDS: CLONIDINE HCL 0.1 MG TABLET GT SCH ×3 (04:54→21:03)
[2019-11-03] MEDS: hydrALAZINE HCL 25 MG TABLET GT SCH ×3 (04:54→21:03)
[2019-11-03] MEDS: METOCLOPRAMIDE HCL 10 MG/10 ML UDC GT SCH ×3 (04:54→21:04)
[2019-11-03] MEDS: LABETALOL HCL 300 MG TABLET GT SCH ×3 (04:55→21:04)
[2019-11-03] MEDS: BLOOD SUGAR DIAGNOSTIC 1 EACH STRIP IN SCH ×3 (06:10→17:25)
[2019-11-03] MEDS: INSULIN ASPART/LISPRO 100 UNIT/ML CARTRIDGE SQ PRN ×3 (06:11→17:31)
[2019-11-03 07:25] LABS: BASOPHILS % (AUTO) 0.1 % (0.0-2.0); EOSINOPHILS % (AUTO) 8.1 % (0.0-6.0); HEMATOCRIT 25 % (39-51); HEMOGLOBIN 8.4 g/dL (13.5-17.5); LYMPHOCYTES # (AUTO) 0.6 /CMM (0.8-4.8); LYMPHOCYTES % (AUTO) 3.3 % (20.0-44.0); MEAN CORPUSCULAR HGB CONC 34 g/dl (31.0-36.0); MEAN CORPUSCULAR VOLUME 88 fL (80-96); MONOCYTES # (AUTO) 1.2 /CMM (0.1-1.30); MONOCYTES % (AUTO) 6.1 % (2.0-12.0); NEUTROPHILS # (AUTO) 15.8 /CMM (1.8-8.9); NEUTROPHILS % (AUTO) 82.4 % (43.0-81.0); PLATELET COUNT (AUTO) 260 /CMM (150-450); RED BLOOD CELL COUNT(AUTO) 2.81 MIL/uL (4.5-6.0); WHITE BLOOD COUNT (AUTO) 19.2 K/uL (4.3-11.0)
[2019-11-03 07:30] VITALS: BP 145/75
[2019-11-03 07:45] LABS: CALCIUM, SERUM 9.6 mg/dL (8.5-10.1); CREATININE 5.9 mg/dL (0.6-1.3); MAGNESIUM 2.8 mg/dL (1.8-2.4); PHOSPHORUS 3.6 mg/dL (2.5-4.9); POTASSIUM 4.7 mmol/L (3.5-5.1)
[2019-11-03] MEDS: ACETYLCYSTEINE 10% SOLN 400 MG/4 ML VIAL IH SCH ×2 (07:45→20:10)
[2019-11-03] MEDS: HYDROGEN PEROXIDE 480 ML BOTTLE TP SCH ×2 (07:45→20:37)
[2019-11-03] MEDS: BACI/NEOM/POLY B OINT PKT 1 UDPKT PACKET TP SCH ×2 (09:00→21:04)
[2019-11-03] MEDS: NEOMY SULF/BACITRAC ZN/POLY 15 GM TUBE TP SCH (09:00)
[2019-11-03] MEDS: Z GUARD REMEDY 4 OZ OINT TP SCH ×2 (09:00→21:04)
[2019-11-03] MEDS: MINERAL OIL/PETROL OINT 396 GM JAR TP SCH ×2 (09:00→21:04)
[2019-11-03] MEDS: LORATADINE 10 MG TABLET GT SCH (09:17)
[2019-11-03] MEDS: DOCUSATE SODIUM LIQ 100 MG/10 ML UDC GT SCH ×2 (09:17→21:03)
[2019-11-03] MEDS: DOXAZOSIN MESYLATE (4 MG) 4 MG TABLET GT SCH ×2 (09:17→21:03)
[2019-11-03] MEDS: LACTOBACILLUS RHAMNOSUS GG 1 EACH CAP.SPRINK GT SCH ×2 (09:18→17:24)
[2019-11-03] MEDS: FERROUS SULFATE UDC 300 MG/5 ML UDC GT SCH (09:18)
[2019-11-03] MEDS: VIT B CMPLX 3/FA/VIT C/BIOTIN 1 TAB TABLET GT SCH (09:21)
[2019-11-03] MEDS: AMLODIPINE BESYLATE 10 MG TABLET GT SCH (09:21)
[2019-11-03] MEDS: LEVETIRACETAM SOL (5 ML) 100 MG/ML UDC GT SCH ×2 (09:21→21:03)
[2019-11-03] MEDS: MINOXIDIL (2.5MG) 2.5 MG TABLET GT SCH (09:21)
[2019-11-03] MEDS: SITAGLIPTIN PHOSPHATE 50 MG TABLET GT SCH (09:21)
[2019-11-03] MEDS: ISOSORBIDE DINITRATE (20MG) 20 MG TABLET GT SCH ×3 (09:21→17:25)
[2019-11-03] MEDS: CHLORHEXIDINE GLUCONATE 15 ML UDC MM SCH (09:22)
[2019-11-03] MEDS: ACETAMINOPHEN 650 MG/20 ML UDC- SA PATIENTS-PAIN ONLY GT SCH (09:22)
[2019-11-03] MEDS: FAMOTIDINE (20 MG) 20 MG TABLET GT SCH (09:22)
[2019-11-03] MEDS: BASAGLAR SQ SCH ×2 (09:23→21:10)
[2019-11-03] MEDS: INSULIN GLARGINE SQ SCH ×2 (09:23→21:10)
--- NOTE | 2019-11-03 10:52 | NUR ---
Informed DIALYSIS TECHNICIAN Bess that WBC increased to 19.2. Pt on Doxycycline and Cefepime. Asked her for duration of antibiotics. She said she will check later.
[2019-11-03] MEDS: DOXYCYCLINE HYCLATE (100 MG) 100 MG TABLET GT SCH (12:17)
--- NOTE | 2019-11-03 15:52 | NUR ---
Wheelchair update: JOELLE contacted [facility] [facility] Customer Service, Arianna [phone] to gather information of next step to take as Santiago from [employer] came to see pt. to get measurements on 10/26/19. Per Arianna, they are processing the resident's application and will need a doctor's order for Xmrk-zu-Akgim wheelchair. Per Arianna, they will also need documentation from doctor or PT demonstrating that the tilt in space wheelchair is a medical necessity. JOELLE informed Charge NurseMecca about above stated. JOELLE will fax required information to [facility] [facility] when doctor's order is made available.
--- NOTE | 2019-11-03 17:19 | NUR ---
RT NOTE RECEIVED PATIENT ON TRACH WITH VENTILATOR. TRACH IS PATENT AND SECURED. VENT ALARMS ARE SET AND AUDIBLE. VENT IS PLUGGED TO RED OUTLET. SPARE TRACH AND AMBU BAG IS AT BEDSIDE. PATIENT HAS EQUAL CHEST RISE WITH COARSE BILATERAL BREATH SOUNDS. SUCTION SMALL AMOUNT OF THICK PINK TINGED SECRETIONS TROUGH OUT THE DAY. TRACH CARE WAS PERFORMED. BREATHING TREATMENTS GIVEN WITH NO ADVERSE REACTION. PATIENT IS SYNC AND COMFORTABLE ON THE VENTILATOR. NO SOB NOTED Addendum: 11/03/19 at 1720 by DIA PIERRE RT Amended: Links added.
[2019-11-03] MEDS: NEPRO 1,000 ML BOTTLE GT PRN (17:25)
--- NOTE | 2019-11-03 17:31 | NUR ---
Pt was seen by ST Deleon. Received order today to DC pureed diet and replace with small portions of puree and nectar thick liquids for breakfast and lunch for oral gratification only. Notified YAAKOV Andrade. She evaluated pt's feeding and caloric needs. She said to keep the same GT feeding for now.
[2019-11-03 18:33] LABS: APPEARANCE,URINE CLEAR (CLEAR); COLOR,URINE YELLOW (YELLOW); PH,URINE 5.5 (5.0-8.0); PROTEIN,URINE 2+ mg/dl (NEGATIVE); UGLUCOSE 500 MG/DL mg/dL (NEGATIVE)
[2019-11-03 18:34] LABS: BILIRUBIN,URINE NEGATIVE (NEGATIVE); BLOOD, URINE NEGATIVE Ery/uL (NEGATIVE); KETONES,URINE NEGATIVE (NEGATIVE); LEUKOCYTE ESTERASE ,URINE NEGATIVE (NEGATIVE); NITRITE, URINE NEGATIVE (NEGATIVE); UROBILINOGEN,URINE 0.2 EU/dL (0.2)
[2019-11-03 18:36] LABS: BACTERIA,URINE 1+ /HPF (None Seen); COARSE GRANULAR CASTS,URINE Few /LPF (None Seen); RBC,URINE 0-2 /HPF (0-2); SQUAMOUS EPITHELIAL CELL,UR Few /HPF (None Seen); URINE AMORPHOUS URATE Few /HPF (None Seen); WBC,URINE 0-2 /HPF (0-3)
[2019-11-03] MEDS ORDERED: FEE PK DOSING 1 MIN EA MC ONE (19:59)
[2019-11-03] MEDS: MEROPENEM 500 MG in IV NS 0.9% 50 ML IV SCH (20:00)
[2019-11-03 20:14] VITALS: BP 132/58
[2019-11-03] MEDS ORDERED: VANCOMYCIN 1 GM in IV D5W 250 ML IV ONE (21:00)
[2019-11-03] MEDS: SENNOSIDES 8.6 MG TABLET GT SCH (21:04)
--- NOTE | 2019-11-03 21:25 | NUR ---
RECEIVED PT STABLE ON MV, SETTINGS ARE AC 14 550 +5 @ 30% FIO2, ALARMS ARE ON AND AUDIBLE, VENT PLUG IN RED OUTLET, BACK UP TRACH AND AMBU BAG IS AT BEDSIDE, TRACH PATENT AND SECURED WILL CONTINUE TO MONITOR Addendum: 11/03/19 at 2126 by GILBERT ROGERS RT Amended: Links added.
[2019-11-04] MEDS: BLOOD SUGAR DIAGNOSTIC 1 EACH STRIP IN SCH ×4 (00:33→17:24)
[2019-11-04] MEDS: INSULIN ASPART/LISPRO 100 UNIT/ML CARTRIDGE SQ PRN ×4 (00:35→17:27)
[2019-11-04] MEDS: ALBUTEROL FS 2.5 MG/0.5 ML VIAL.NEB NEB SCH ×4 (01:46→19:54)
[2019-11-04] MEDS: IPRATROPIUM NEB FS 0.5 MG/2.5 ML AMPUL.NEB NEB SCH ×4 (01:46→19:54)
[2019-11-04] MEDS: IV NS 0.9% 1,000 ML IV PRN ×2 (01:59→16:04)
[2019-11-04] MEDS: METOCLOPRAMIDE HCL 10 MG/10 ML UDC GT SCH ×3 (05:14→20:44)
[2019-11-04] MEDS: CLONIDINE HCL 0.1 MG TABLET GT SCH ×3 (05:14→20:42)
[2019-11-04] MEDS: hydrALAZINE HCL 25 MG TABLET GT SCH ×3 (05:14→20:41)
[2019-11-04] MEDS: LABETALOL HCL 300 MG TABLET GT SCH ×3 (05:14→20:44)
[2019-11-04 07:50] LABS: BASOPHILS # (AUTO) 0.1 /CMM (0.0-0.2); BASOPHILS % (AUTO) 0.5 % (0.0-2.0); EOSINOPHILS % (AUTO) 15.7 % (0.0-6.0); HEMATOCRIT 25 % (39-51); HEMOGLOBIN 8.2 g/dL (13.5-17.5); LYMPHOCYTES % (AUTO) 7.9 % (20.0-44.0); MEAN CORPUSCULAR HGB CONC 33 g/dl (31.0-36.0); MEAN CORPUSCULAR VOLUME 89 fL (80-96); MONOCYTES # (AUTO) 1.1 /CMM (0.1-1.30); MONOCYTES % (AUTO) 9.1 % (2.0-12.0); NEUTROPHILS # (AUTO) 8.4 /CMM (1.8-8.9); NEUTROPHILS % (AUTO) 66.8 % (43.0-81.0); PLATELET COUNT (AUTO) 267 /CMM (150-450); RED BLOOD CELL COUNT(AUTO) 2.79 MIL/uL (4.5-6.0); WHITE BLOOD COUNT (AUTO) 12.5 K/uL (4.3-11.0)
[2019-11-04 07:52] VITALS: BP 145/71
[2019-11-04] MEDS: ACETYLCYSTEINE 10% SOLN 400 MG/4 ML VIAL IH SCH ×2 (08:08→21:33)
--- NOTE | 2019-11-04 08:08 | NUR ---
RT PT RECEIVED ON CURRENT VENT SETTINGS. TRACHED WITH PORTEX 7. VENT PLUGGED IN TO RED OUTLET. HOB AT 30 DEGREES. AMBU BAG AT HEAD OF BED. SPARE TRACH AT HEAD OF BED. MINIMAL SECRETIONS SUCTIONED. NO RESPIRATORY DISTRESS NOTED. WILL CONTINUE TO MONITOR. Addendum: 11/04/19 at 1145 by MEHDI HAUSER RT Amended: Links added.
[2019-11-04 08:09] LABS: CALCIUM, SERUM 9.5 mg/dL (8.5-10.1); CREATININE 5.2 mg/dL (0.6-1.3); MAGNESIUM 2.8 mg/dL (1.8-2.4); PHOSPHORUS 3.1 mg/dL (2.5-4.9); POTASSIUM 4.3 mmol/L (3.5-5.1)
[2019-11-04] MEDS: MEROPENEM 500 MG in IV NS 0.9% 50 ML IV SCH ×2 (08:19→20:24)
[2019-11-04] MEDS: FERROUS SULFATE UDC 300 MG/5 ML UDC GT SCH (09:00)
[2019-11-04] MEDS: LORATADINE 10 MG TABLET GT SCH (09:00)
[2019-11-04] MEDS: FAMOTIDINE (20 MG) 20 MG TABLET GT SCH (09:00)
[2019-11-04] MEDS: CHLORHEXIDINE GLUCONATE 15 ML UDC MM SCH (09:00)
[2019-11-04] MEDS: LEVETIRACETAM SOL (5 ML) 100 MG/ML UDC GT SCH ×2 (09:00→20:44)
[2019-11-04] MEDS: LACTOBACILLUS RHAMNOSUS GG 1 EACH CAP.SPRINK GT SCH ×2 (09:00→17:24)
[2019-11-04] MEDS: VIT B CMPLX 3/FA/VIT C/BIOTIN 1 TAB TABLET GT SCH (09:00)
[2019-11-04] MEDS: DOXAZOSIN MESYLATE (4 MG) 4 MG TABLET GT SCH ×2 (09:00→20:42)
[2019-11-04] MEDS: MINOXIDIL (2.5MG) 2.5 MG TABLET GT SCH (09:00)
[2019-11-04] MEDS: Z GUARD REMEDY 4 OZ OINT TP SCH ×2 (09:00→20:46)
[2019-11-04] MEDS: MINERAL OIL/PETROL OINT 396 GM JAR TP SCH ×2 (09:00→20:46)
[2019-11-04] MEDS: ACETAMINOPHEN 650 MG/20 ML UDC- SA PATIENTS-PAIN ONLY GT SCH (09:00)
[2019-11-04] MEDS: BASAGLAR SQ SCH ×2 (09:00→20:46)
[2019-11-04] MEDS: BACI/NEOM/POLY B OINT PKT 1 UDPKT PACKET TP SCH ×2 (09:00→20:46)
[2019-11-04] MEDS: AMLODIPINE BESYLATE 10 MG TABLET GT SCH (09:00)
[2019-11-04] MEDS: INSULIN GLARGINE SQ SCH ×2 (09:00→20:46)
[2019-11-04] MEDS: ISOSORBIDE DINITRATE (20MG) 20 MG TABLET GT SCH ×3 (09:00→17:24)
[2019-11-04] MEDS: SITAGLIPTIN PHOSPHATE 50 MG TABLET GT SCH (09:00)
[2019-11-04] MEDS: DOCUSATE SODIUM LIQ 100 MG/10 ML UDC GT SCH ×2 (09:00→20:43)
[2019-11-04] MEDS ORDERED: FUROSEMIDE 40 MG/4 ML VIAL IV ONE (11:00)
--- NOTE | 2019-11-04 11:04 | NUR ---
Dr. Valles seen and reviewed lab result today. Made aware that patient's output is not adequate compared to his intake, resident has shown significant weight gain 16 lbs (Sep 159.4 lbs-Oct 175.4 lbs.) New order given for Lasix 40 mg IV x 1 and repeat CBC, BMP, Mg and Phos in AM. Order carried out.
--- NOTE | 2019-11-04 12:03 | NUR ---
RT PLACED PT ON PMV FOR FEEDING. PT DID NOT TOLERATE. RR WENT UP TO 37. NOTIFIED AMADO DE LEON. PT PLACED BACK ON VENT WITH CUFF INFLATED. PT STABLE SPO2 98% HR 77. Addendum: 11/04/19 at 1213 by MEHDI HAUSER RT Amended: Links added.
--- NOTE | 2019-11-04 14:12 | NUR ---
Wheelchair update:Per [facility] request, JOELLE faxed to [phone] the pt.s face sheet, doctors order for Manual Gjhp-uo-Sghnb WC, doctors progress notes, PT & OT notes and that demonstrate that the pt. is full assist with ADLs and can benefit from having a wheelchair. JOELLE called [facility] to inform them that the fax was sent and to call back if they do not receive it require additional information. JOELLE received completed fax receipt.
--- NOTE | 2019-11-04 16:17 | NUR ---
INTERDISCIPLINARY PLAN OF CARE CONFERENCE took place today. The patients responsible libertarian/ Keith Latoya [phone] was in attendance. Charge nurse discussed pt. back on vent due to desaturation Tx: Mucomyst 300 mg q 12 for increased secretions; 10/29 open boil and Tx; 11/01 Portex #6 changed to Portex #7; 11/03 D/C previous diet and changed to small portion puree & nectar thick at breakfast and lunch for oral gratification. Dr. Braun and Interdisciplinary team discussed the plan of care in detail. Current orders as well as treatments and medications were reviewed. Please see other disciplines IDT notes for further details.
[2019-11-04] MEDS: NEPRO 1,000 ML BOTTLE GT PRN (17:24)
[2019-11-04 21:00] VITALS: BP 140/72
[2019-11-04] MEDS: HYDROGEN PEROXIDE 480 ML BOTTLE TP SCH (21:00)
[2019-11-04] MEDS: SENNOSIDES 8.6 MG TABLET GT SCH (21:31)
--- NOTE | 2019-11-04 23:14 | NUR ---
RT RECEIVED PT TRACH'D ON [facility] VENT WITH SETTINGS PER MD ORDER. BRIM AND CROWN PRESSER DONE. ALARMS ON AND AUDIBLE. SPARE TRACH AND AMBU BAG AT BEDSIDE. BREATHING TX'S GIVEN ORDERED. NO ADVERSE REACTIONS. SUCTIONED AND MONITORED PRN. NO SOB NOTED AT THIS TIME. WILL CONTINUE TO MONITOR THE PT FOR ANY CHANGES. Addendum: 11/05/19 at 0013 by RAYMUNDO DICKERSON RT Amended: Links added.
[2019-11-05] MEDS: IPRATROPIUM NEB FS 0.5 MG/2.5 ML AMPUL.NEB NEB SCH ×4 (00:44→20:25)
[2019-11-05] MEDS: ALBUTEROL FS 2.5 MG/0.5 ML VIAL.NEB NEB SCH ×4 (00:44→20:25)
[2019-11-05] MEDS: BLOOD SUGAR DIAGNOSTIC 1 EACH STRIP IN SCH ×4 (00:46→17:14)
[2019-11-05] MEDS: INSULIN ASPART/LISPRO 100 UNIT/ML CARTRIDGE SQ PRN ×4 (00:48→17:19)
[2019-11-05] MEDS: hydrALAZINE HCL 25 MG TABLET GT SCH ×3 (05:43→21:40)
[2019-11-05] MEDS: LABETALOL HCL 300 MG TABLET GT SCH ×3 (05:44→21:41)
[2019-11-05] MEDS: CLONIDINE HCL 0.1 MG TABLET GT SCH ×3 (05:44→21:40)
[2019-11-05] MEDS: METOCLOPRAMIDE HCL 10 MG/10 ML UDC GT SCH ×3 (05:44→21:41)
[2019-11-05] MEDS: IV NS 0.9% 1,000 ML IV PRN (06:50)
--- NOTE | 2019-11-05 07:08 | NUR ---
Noted patient is mostly awake at night watching tv and keep calling for suction and repositioning even nurses just suction and reposition. Lower the volume of the tv and keep the light dim to promote sleeping environment still not effective. Will continue to monitor.
[2019-11-05 07:21] LABS: BASOPHILS # (AUTO) 0.1 /CMM (0.0-0.2); BASOPHILS % (AUTO) 0.4 % (0.0-2.0); EOSINOPHILS % (AUTO) 13.6 % (0.0-6.0); HEMATOCRIT 26 % (39-51); HEMOGLOBIN 8.5 g/dL (13.5-17.5); LYMPHOCYTES # (AUTO) 0.9 /CMM (0.8-4.8); LYMPHOCYTES % (AUTO) 5.2 % (20.0-44.0); MEAN CORPUSCULAR HGB CONC 33 g/dl (31.0-36.0); MEAN CORPUSCULAR VOLUME 88 fL (80-96); MONOCYTES # (AUTO) 1.5 /CMM (0.1-1.30); MONOCYTES % (AUTO) 8.7 % (2.0-12.0); NEUTROPHILS # (AUTO) 12.3 /CMM (1.8-8.9); NEUTROPHILS % (AUTO) 72.1 % (43.0-81.0); PLATELET COUNT (AUTO) 347 /CMM (150-450); RED BLOOD CELL COUNT(AUTO) 2.89 MIL/uL (4.5-6.0)
[2019-11-05 07:37] LABS: CREATININE 4.2 mg/dL (0.6-1.3); MAGNESIUM 2.6 mg/dL (1.8-2.4); PHOSPHORUS 2.8 mg/dL (2.5-4.9); POTASSIUM 3.8 mmol/L (3.5-5.1)
[2019-11-05 08:00] VITALS: BP 155/72
[2019-11-05] MEDS: MEROPENEM 500 MG in IV NS 0.9% 50 ML IV SCH ×2 (08:20→20:00)
[2019-11-05] MEDS: HYDROGEN PEROXIDE 480 ML BOTTLE TP SCH ×2 (08:25→20:25)
[2019-11-05] MEDS: ACETYLCYSTEINE 10% SOLN 400 MG/4 ML VIAL IH SCH ×2 (08:25→21:29)
[2019-11-05] MEDS: LORATADINE 10 MG TABLET GT SCH (09:21)
[2019-11-05] MEDS: DOXAZOSIN MESYLATE (4 MG) 4 MG TABLET GT SCH ×2 (09:21→21:40)
[2019-11-05] MEDS: FERROUS SULFATE UDC 300 MG/5 ML UDC GT SCH (09:22)
[2019-11-05] MEDS: LEVETIRACETAM SOL (5 ML) 100 MG/ML UDC GT SCH ×2 (09:22→21:40)
[2019-11-05] MEDS: DOCUSATE SODIUM LIQ 100 MG/10 ML UDC GT SCH ×2 (09:22→21:40)
[2019-11-05] MEDS: SITAGLIPTIN PHOSPHATE 50 MG TABLET GT SCH (09:22)
[2019-11-05] MEDS: ISOSORBIDE DINITRATE (20MG) 20 MG TABLET GT SCH ×3 (09:22→16:35)
[2019-11-05] MEDS: LACTOBACILLUS RHAMNOSUS GG 1 EACH CAP.SPRINK GT SCH ×2 (09:22→16:34)
[2019-11-05] MEDS: VIT B CMPLX 3/FA/VIT C/BIOTIN 1 TAB TABLET GT SCH (09:23)
[2019-11-05] MEDS: MINOXIDIL (2.5MG) 2.5 MG TABLET GT SCH (09:23)
[2019-11-05] MEDS: ACETAMINOPHEN 650 MG/20 ML UDC- SA PATIENTS-PAIN ONLY GT SCH (09:24)
[2019-11-05] MEDS: AMLODIPINE BESYLATE 10 MG TABLET GT SCH (09:24)
[2019-11-05] MEDS: FAMOTIDINE (20 MG) 20 MG TABLET GT SCH (09:24)
[2019-11-05] MEDS: CHLORHEXIDINE GLUCONATE 15 ML UDC MM SCH (09:25)
[2019-11-05] MEDS: VANCOMYCIN 0.75 GM in IV D5W 250 ML IV SCH (09:30)
[2019-11-05] MEDS: INSULIN GLARGINE SQ SCH ×2 (09:43→21:51)
[2019-11-05] MEDS: BASAGLAR SQ SCH ×2 (09:43→21:51)
[2019-11-05] MEDS: Z GUARD REMEDY 4 OZ OINT TP SCH ×2 (10:24→21:51)
[2019-11-05] MEDS: BACI/NEOM/POLY B OINT PKT 1 UDPKT PACKET TP SCH ×2 (10:24→21:51)
[2019-11-05] MEDS: MINERAL OIL/PETROL OINT 396 GM JAR TP SCH ×2 (10:24→21:51)
[2019-11-05] MEDS: NEPRO 1,000 ML BOTTLE GT PRN (12:47)
--- NOTE | 2019-11-05 14:06 | NUR ---
Vancomycin trough level (10ug/ml) faxed to [facility] IV department, spoke with Cruzito and said that she will relay the result to their IV pharmacist.
[2019-11-05] MEDS: SENNOSIDES 8.6 MG TABLET GT SCH (21:51)
[2019-11-06] MEDS: BLOOD SUGAR DIAGNOSTIC 1 EACH STRIP IN SCH ×4 (00:02→17:51)
[2019-11-06] MEDS: INSULIN ASPART/LISPRO 100 UNIT/ML CARTRIDGE SQ PRN ×4 (00:04→17:52)
[2019-11-06] MEDS: ALBUTEROL FS 2.5 MG/0.5 ML VIAL.NEB NEB SCH ×4 (00:40→19:41)
[2019-11-06] MEDS: IPRATROPIUM NEB FS 0.5 MG/2.5 ML AMPUL.NEB NEB SCH ×4 (00:40→19:41)
[2019-11-06] MEDS: IV NS 0.9% 1,000 ML IV PRN ×2 (01:01→15:00)
[2019-11-06 04:20] VITALS: BP 141/63
[2019-11-06] MEDS: METOCLOPRAMIDE HCL 10 MG/10 ML UDC GT SCH ×3 (05:36→21:49)
[2019-11-06] MEDS: hydrALAZINE HCL 25 MG TABLET GT SCH ×3 (05:36→21:49)
[2019-11-06] MEDS: CLONIDINE HCL 0.1 MG TABLET GT SCH ×3 (05:36→21:49)
[2019-11-06] MEDS: LABETALOL HCL 300 MG TABLET GT SCH ×3 (05:37→21:49)
[2019-11-06] MEDS: ACETYLCYSTEINE 10% SOLN 400 MG/4 ML VIAL IH SCH ×2 (07:44→19:41)
[2019-11-06 07:45] VITALS: BP 159/78
[2019-11-06] MEDS: MEROPENEM 500 MG in IV NS 0.9% 50 ML IV SCH ×2 (08:27→20:00)
[2019-11-06 08:34] LABS: CALCIUM, SERUM 9.9 mg/dL (8.5-10.1); CREATININE 3.3 mg/dL (0.6-1.3); POTASSIUM 3.6 mmol/L (3.5-5.1)
[2019-11-06] MEDS: MINOXIDIL (2.5MG) 2.5 MG TABLET GT SCH (09:00)
[2019-11-06] MEDS: DOCUSATE SODIUM LIQ 100 MG/10 ML UDC GT SCH ×2 (09:00→21:49)
[2019-11-06] MEDS: MINERAL OIL/PETROL OINT 396 GM JAR TP SCH ×2 (09:00→21:50)
[2019-11-06] MEDS: VIT B CMPLX 3/FA/VIT C/BIOTIN 1 TAB TABLET GT SCH (09:00)
[2019-11-06] MEDS: FERROUS SULFATE UDC 300 MG/5 ML UDC GT SCH (09:00)
[2019-11-06] MEDS: BACI/NEOM/POLY B OINT PKT 1 UDPKT PACKET TP SCH ×2 (09:00→21:50)
[2019-11-06] MEDS: INSULIN GLARGINE SQ SCH ×2 (09:00→21:50)
[2019-11-06] MEDS: LEVETIRACETAM SOL (5 ML) 100 MG/ML UDC GT SCH ×2 (09:00→21:49)
[2019-11-06] MEDS: CHLORHEXIDINE GLUCONATE 15 ML UDC MM SCH (09:00)
[2019-11-06] MEDS: ACETAMINOPHEN 650 MG/20 ML UDC- SA PATIENTS-PAIN ONLY GT SCH (09:00)
[2019-11-06] MEDS: LACTOBACILLUS RHAMNOSUS GG 1 EACH CAP.SPRINK GT SCH ×2 (09:00→17:51)
[2019-11-06] MEDS: DOXAZOSIN MESYLATE (4 MG) 4 MG TABLET GT SCH ×2 (09:00→21:49)
[2019-11-06] MEDS: AMLODIPINE BESYLATE 10 MG TABLET GT SCH (09:00)
[2019-11-06] MEDS: ISOSORBIDE DINITRATE (20MG) 20 MG TABLET GT SCH ×3 (09:00→17:51)
[2019-11-06] MEDS: FAMOTIDINE (20 MG) 20 MG TABLET GT SCH (09:00)
[2019-11-06] MEDS: HYDROGEN PEROXIDE 480 ML BOTTLE TP SCH ×2 (09:00→19:42)
[2019-11-06] MEDS: BASAGLAR SQ SCH ×2 (09:00→21:50)
[2019-11-06] MEDS: LORATADINE 10 MG TABLET GT SCH (09:00)
[2019-11-06] MEDS: Z GUARD REMEDY 4 OZ OINT TP SCH ×2 (09:00→21:50)
[2019-11-06] MEDS: SITAGLIPTIN PHOSPHATE 50 MG TABLET GT SCH (09:00)
[2019-11-06] MEDS: NEPRO 1,000 ML BOTTLE GT PRN (14:45)
[2019-11-06 20:33] VITALS: BP 164/67
[2019-11-06] MEDS: VANCOMYCIN 0.75 GM in IV D5W 250 ML IV SCH (21:00)
--- NOTE | 2019-11-06 21:20 | NUR ---
RT NOTE RECEIVED PATIENT ON TRACH WITH VENTILATOR. TRACH IS PATENT AND SECURED.VENT IS PLUGGED TO RED OUTLET, ALARMS ARE SET AND AUDIBLE. SPARE TRACH AND BVM IS AT BEDSIDE. PATIENT IS STABLE AND IN SYNC WITH THE VENT. PATIENT HAS EQUAL CHEST RISE AND HAS COARSE BILATERAL BREATH SOUNDS. SUCTION SMALL AMOUNT OF THICK GREEN SECRETIONS. GAVE BREATHING TREATMENT WITH NO ADVERSE REACTION. WILL CONTINUE TO MONITOR. Addendum: 11/06/19 at 2120 by DIA PIERRE RT Amended: Links added.
[2019-11-06] MEDS: SENNOSIDES 8.6 MG TABLET GT SCH (21:50)
[2019-11-07] MEDS: BLOOD SUGAR DIAGNOSTIC 1 EACH STRIP IN SCH ×5 (00:17→23:17)
[2019-11-07] MEDS: INSULIN ASPART/LISPRO 100 UNIT/ML CARTRIDGE SQ PRN ×5 (00:19→23:18)
[2019-11-07] MEDS: IPRATROPIUM NEB FS 0.5 MG/2.5 ML AMPUL.NEB NEB SCH ×4 (01:12→19:41)
[2019-11-07] MEDS: ALBUTEROL FS 2.5 MG/0.5 ML VIAL.NEB NEB SCH ×4 (01:12→19:41)
[2019-11-07] MEDS: IV NS 0.9% 1,000 ML IV PRN (05:30)
[2019-11-07] MEDS: hydrALAZINE HCL 25 MG TABLET GT SCH ×3 (05:34→21:38)
[2019-11-07] MEDS: CLONIDINE HCL 0.1 MG TABLET GT SCH ×3 (05:34→21:38)
[2019-11-07] MEDS: METOCLOPRAMIDE HCL 10 MG/10 ML UDC GT SCH ×3 (05:34→21:39)
[2019-11-07] MEDS: LABETALOL HCL 300 MG TABLET GT SCH ×3 (05:35→21:39)
[2019-11-07 07:03] LABS: CALCIUM, SERUM 9.7 mg/dL (8.5-10.1); CREATININE 2.7 mg/dL (0.6-1.3); POTASSIUM 3.7 mmol/L (3.5-5.1)
[2019-11-07 07:41] VITALS: BP 150/66
[2019-11-07] MEDS: MEROPENEM 500 MG in IV NS 0.9% 50 ML IV SCH ×2 (08:00→20:00)
[2019-11-07] MEDS: ACETYLCYSTEINE 10% SOLN 400 MG/4 ML VIAL IH SCH (08:37)
[2019-11-07] MEDS: LEVETIRACETAM SOL (5 ML) 100 MG/ML UDC GT SCH ×2 (09:00→21:38)
[2019-11-07] MEDS: HYDROGEN PEROXIDE 480 ML BOTTLE TP SCH ×2 (09:00→20:19)
[2019-11-07] MEDS: AMLODIPINE BESYLATE 10 MG TABLET GT SCH (09:00)
[2019-11-07] MEDS: MINOXIDIL (2.5MG) 2.5 MG TABLET GT SCH (09:00)
[2019-11-07] MEDS: DOCUSATE SODIUM LIQ 100 MG/10 ML UDC GT SCH ×2 (09:00→21:38)
[2019-11-07] MEDS: BACI/NEOM/POLY B OINT PKT 1 UDPKT PACKET TP SCH ×2 (09:00→21:39)
[2019-11-07] MEDS: FAMOTIDINE (20 MG) 20 MG TABLET GT SCH (09:00)
[2019-11-07] MEDS: ACETAMINOPHEN 650 MG/20 ML UDC- SA PATIENTS-PAIN ONLY GT SCH (09:00)
[2019-11-07] MEDS: LORATADINE 10 MG TABLET GT SCH (09:00)
[2019-11-07] MEDS: Z GUARD REMEDY 4 OZ OINT TP SCH ×2 (09:00→21:40)
[2019-11-07] MEDS: MINERAL OIL/PETROL OINT 396 GM JAR TP SCH ×2 (09:00→21:39)
[2019-11-07] MEDS: CHLORHEXIDINE GLUCONATE 15 ML UDC MM SCH (09:00)
[2019-11-07] MEDS: DOXAZOSIN MESYLATE (4 MG) 4 MG TABLET GT SCH ×2 (09:00→21:38)
[2019-11-07] MEDS: INSULIN GLARGINE SQ SCH ×2 (09:00→21:39)
[2019-11-07] MEDS: LACTOBACILLUS RHAMNOSUS GG 1 EACH CAP.SPRINK GT SCH ×2 (09:00→16:59)
[2019-11-07] MEDS: SITAGLIPTIN PHOSPHATE 50 MG TABLET GT SCH (09:00)
[2019-11-07] MEDS: ISOSORBIDE DINITRATE (20MG) 20 MG TABLET GT SCH ×3 (09:00→17:00)
[2019-11-07] MEDS: FERROUS SULFATE UDC 300 MG/5 ML UDC GT SCH (09:00)
[2019-11-07] MEDS: BASAGLAR SQ SCH ×2 (09:00→21:39)
[2019-11-07] MEDS: VIT B CMPLX 3/FA/VIT C/BIOTIN 1 TAB TABLET GT SCH (09:00)
[2019-11-07] MEDS: NEPRO 1,000 ML BOTTLE GT PRN (15:25)
--- NOTE | 2019-11-07 15:47 | NUR ---
Seen by Dr Braun. Received order to DC Mucomyst. Pt no longer having mucus plugs or thick secretions.
--- NOTE | 2019-11-07 16:30 | NUR ---
Dr Braun ordered to place pt on SIMV 4 PSV 15 PEEP +5, titrate FiO2 to keep SPO2 greater than or equal to 94% on 11/08/19, ABG 1 hour post vent change. He also ordered CXR in AM. Notified
--- NOTE | 2019-11-07 16:53 | NUR ---
NS at 75 mL/hr IV DC'd by Dr Treadwell.
--- NOTE | 2019-11-07 17:01 | NUR ---
Spoke with IV pharmacist Felton. Followed up on Vancomycin dose. Vancomycin trough was 12. Felton said to keep the same dose of Vancomycin 750 mg IV q 36 hours, no more trough until completion of therapy.
--- NOTE | 2019-11-07 19:57 | NUR ---
PT RCVD TRACH'D ON MECHANICAL VENT WITH CHARTED SETTINGS. PT LITZY TX WELL. SX DONE. PT TRACH IS PATENT AND SECURE. VENT ALARMS APPEAR TO BE FUNCTIONING PROPERLY. VENT PLUGGED INTO RED OUTLET. AMBU BAG AT BEDSIDE. NO SOB NOTED. Addendum: 11/07/19 at 1958 by LAST TIRADO RT Amended: Links added.
[2019-11-07 21:01] VITALS: BP 165/82
[2019-11-07] MEDS: SENNOSIDES 8.6 MG TABLET GT SCH (21:40)
[2019-11-07 22:17] VITALS: BP 165/82
[2019-11-08] MEDS: IPRATROPIUM NEB FS 0.5 MG/2.5 ML AMPUL.NEB NEB SCH ×4 (00:59→19:49)
[2019-11-08] MEDS: ALBUTEROL FS 2.5 MG/0.5 ML VIAL.NEB NEB SCH ×4 (00:59→19:49)
[2019-11-08] MEDS: BLOOD SUGAR DIAGNOSTIC 1 EACH STRIP IN SCH ×3 (05:44→17:42)
[2019-11-08] MEDS: CLONIDINE HCL 0.1 MG TABLET GT SCH ×3 (05:44→21:51)
[2019-11-08] MEDS: LABETALOL HCL 300 MG TABLET GT SCH ×3 (05:44→21:51)
[2019-11-08] MEDS: METOCLOPRAMIDE HCL 10 MG/10 ML UDC GT SCH ×3 (05:44→21:51)
[2019-11-08] MEDS: hydrALAZINE HCL 25 MG TABLET GT SCH ×3 (05:44→21:51)
[2019-11-08] MEDS: INSULIN ASPART/LISPRO 100 UNIT/ML CARTRIDGE SQ PRN ×3 (05:45→17:42)
--- NOTE | 2019-11-08 07:34 | NUR ---
RT RECEIVED PT ON CURRENT SETTINGS. TRACHED WITH PORTEX 7. HOB AT 30 DEGREES. AMBU BAG AT HEAD OF BED. SPARE TRACH AT BEDSIDE. VENT PLUGGED IN TO RED OUTLET. ALARM ON AND AUDIBLE. NO RESPIRATORY DISTRESS. WILL CONTINUE TO MONITOR. Addendum: 11/08/19 at 1200 by MEHDI HAUSER RT Amended: Links added.
--- NOTE | 2019-11-08 07:34 | NUR ---
RT RECEIVED PT ON CURRENT SETTINGS. TRACHED WITH PORTEX 7. HOB AT 30 DEGREES. AMBU BAG AT HEAD OF BED. SPARE TRACH AT BEDSIDE. ALARMS ON AND AUDIBLE. NO RESPIRATORY DISTRESS. WILL CONTINUE TO MONITOR.
[2019-11-08 07:48] LABS: CALCIUM, SERUM 10.1 mg/dL (8.5-10.1); CREATININE 2.3 mg/dL (0.6-1.3); POTASSIUM 3.7 mmol/L (3.5-5.1)
[2019-11-08] MEDS: MEROPENEM 500 MG in IV NS 0.9% 50 ML IV SCH ×2 (08:00→20:00)
[2019-11-08 08:06] VITALS: BP 156/88
--- NOTE | 2019-11-08 08:30 | NUR ---
RT PLACED ON SIMV PER MD ORDER. PT TOLERATING WELL. NO RESPIRATORY DISTRESS. ABG IN 1 HR PER MD ORDER. WILL CONTINUE TO MONITOR. Addendum: 11/08/19 at 1200 by MEHDI HAUSER RT Amended: Links added.
--- NOTE | 2019-11-08 08:30 | NUR ---
RT PLACED PT ON SIMV PER MD ORDER. PT TOLERATING WELL. ABG IN 1 HR PER MD ORDER.
[2019-11-08] MEDS: VANCOMYCIN 0.75 GM in IV D5W 250 ML IV SCH (09:00)
[2019-11-08] MEDS: HYDROGEN PEROXIDE 480 ML BOTTLE TP SCH ×2 (09:00→20:09)
[2019-11-08 09:47] LABS: ABG BASE EXCESS 1.5 mmol/L; ABG OXYGEN SATURATION 94.4 % (92.0-98.5); ABG PCO2 39.5 mmHg (35.0-45.0); ABG PH 7.433 (7.350-7.450); ABG PO2 76.1 mmHg (75.0-100.0); AaDO2 163.7 mmHg; COHb 0.3 % (0.5-1.5); MetHb 0.8 % (0.0-1.5); O2Hb 93.4 % (94.0-97.0); SITE, ABG Right Radial; VENT MODE, BG SIMV 4 PS 15 +5 40%
[2019-11-08] MEDS: SITAGLIPTIN PHOSPHATE 50 MG TABLET GT SCH (09:54)
[2019-11-08] MEDS: DOXAZOSIN MESYLATE (4 MG) 4 MG TABLET GT SCH ×2 (09:54→21:51)
[2019-11-08] MEDS: LEVETIRACETAM SOL (5 ML) 100 MG/ML UDC GT SCH ×2 (09:54→21:51)
[2019-11-08] MEDS: DOCUSATE SODIUM LIQ 100 MG/10 ML UDC GT SCH ×2 (09:54→21:51)
[2019-11-08] MEDS: LORATADINE 10 MG TABLET GT SCH (09:54)
[2019-11-08] MEDS: ISOSORBIDE DINITRATE (20MG) 20 MG TABLET GT SCH ×3 (09:54→16:27)
[2019-11-08] MEDS: FERROUS SULFATE UDC 300 MG/5 ML UDC GT SCH (09:54)
[2019-11-08] MEDS: LACTOBACILLUS RHAMNOSUS GG 1 EACH CAP.SPRINK GT SCH ×2 (09:54→16:27)
[2019-11-08] MEDS: VIT B CMPLX 3/FA/VIT C/BIOTIN 1 TAB TABLET GT SCH (09:55)
[2019-11-08] MEDS: FAMOTIDINE (20 MG) 20 MG TABLET GT SCH (09:55)
[2019-11-08] MEDS: MINOXIDIL (2.5MG) 2.5 MG TABLET GT SCH (09:55)
[2019-11-08] MEDS: AMLODIPINE BESYLATE 10 MG TABLET GT SCH (09:55)
[2019-11-08] MEDS: Z GUARD REMEDY 4 OZ OINT TP SCH ×2 (09:56→21:52)
[2019-11-08] MEDS: BACI/NEOM/POLY B OINT PKT 1 UDPKT PACKET TP SCH ×2 (09:56→21:52)
[2019-11-08] MEDS: ACETAMINOPHEN 650 MG/20 ML UDC- SA PATIENTS-PAIN ONLY GT SCH (09:56)
[2019-11-08] MEDS: CHLORHEXIDINE GLUCONATE 15 ML UDC MM SCH (09:56)
[2019-11-08] MEDS: MINERAL OIL/PETROL OINT 396 GM JAR TP SCH ×2 (09:56→21:52)
[2019-11-08] MEDS: INSULIN GLARGINE SQ SCH ×2 (09:57→21:52)
[2019-11-08] MEDS: BASAGLAR SQ SCH ×2 (09:57→21:52)
--- NOTE | 2019-11-08 10:35 | NUR ---
Pt was placed on SIMV 4 PSV 15 PEEP +5, currently on FiO2 40%. ABG result relayed by RT Mercado to Dr Braun. Pt tolerating SIMV well. Dr Braun ordered to keep pt on current SIMV setting as tolerated.
--- NOTE | 2019-11-08 11:52 | NUR ---
RT PT RECEIVED ON CURRENT SETTINGS. TRACHED WITH PORTEX 7. HOB AT 30 DEGREES. VENT PLUGGED IN TO RED OUTLET. AMBU BAG AT HEAD OF BED. SPARE TRACH AT BEDSIDE. ALARMS ON AND AUDIBLE. NO RESPIRATORY DISTRESS. WILL CONTINUE TO MONITOR.
--- NOTE | 2019-11-08 13:02 | NUR ---
Relayed CXR result to Dr Braun. No new order.
[2019-11-08] MEDS: NEPRO 1,000 ML BOTTLE GT PRN (15:08)
[2019-11-08 20:14] VITALS: BP 148/63
--- NOTE | 2019-11-08 20:23 | NUR ---
PT RCVD TRACH'D ON MECHANICAL VENT WITH CHARTED SETTINGS. PT LITZY TX WELL. SX DONE. PT TRACH IS PATENT AND SECURE. VENT ALARMS APPEAR TO BE FUNCTIONING PROPERLY. VENT PLUGGED INTO RED OUTLET. AMBU BAG AT BEDSIDE. NO SOB NOTED. Addendum: 11/08/19 at 2022 by LAST TIRADO RT Amended: Links added.
[2019-11-08] MEDS: SENNOSIDES 8.6 MG TABLET GT SCH (21:52)
[2019-11-08 22:02] VITALS: BP 165/82
[2019-11-09] MEDS: BLOOD SUGAR DIAGNOSTIC 1 EACH STRIP IN SCH ×5 (00:35→23:58)
[2019-11-09] MEDS: INSULIN ASPART/LISPRO 100 UNIT/ML CARTRIDGE SQ PRN ×3 (00:37→18:33)
[2019-11-09] MEDS: ALBUTEROL FS 2.5 MG/0.5 ML VIAL.NEB NEB SCH ×4 (01:24→19:43)
[2019-11-09] MEDS: IPRATROPIUM NEB FS 0.5 MG/2.5 ML AMPUL.NEB NEB SCH ×4 (01:24→19:43)
[2019-11-09] MEDS: CLONIDINE HCL 0.1 MG TABLET GT SCH ×3 (05:58→20:54)
[2019-11-09] MEDS: hydrALAZINE HCL 25 MG TABLET GT SCH ×3 (05:58→20:52)
[2019-11-09] MEDS: METOCLOPRAMIDE HCL 10 MG/10 ML UDC GT SCH ×3 (05:58→20:54)
[2019-11-09] MEDS: LABETALOL HCL 300 MG TABLET GT SCH ×3 (05:59→20:54)
[2019-11-09 07:04] LABS: BASOPHILS % (AUTO) 0.1 % (0.0-2.0); HEMATOCRIT 25 % (39-51); HEMOGLOBIN 8.1 g/dL (13.5-17.5); LYMPHOCYTES # (AUTO) 1.4 /CMM (0.8-4.8); LYMPHOCYTES % (AUTO) 7.3 % (20.0-44.0); MEAN CORPUSCULAR HGB CONC 33 g/dl (31.0-36.0); MEAN CORPUSCULAR VOLUME 90 fL (80-96); MONOCYTES # (AUTO) 1.4 /CMM (0.1-1.30); MONOCYTES % (AUTO) 7.3 % (2.0-12.0); NEUTROPHILS # (AUTO) 13.4 /CMM (1.8-8.9); NEUTROPHILS % (AUTO) 69.3 % (43.0-81.0); PLATELET COUNT (AUTO) 379 /CMM (150-450); RED BLOOD CELL COUNT(AUTO) 2.76 MIL/uL (4.5-6.0); WHITE BLOOD COUNT (AUTO) 19.4 K/uL (4.3-11.0)
[2019-11-09 07:16] LABS: ALBUMIN 2.3 g/dL (3.4-5.0); BILIRUBIN,TOTAL 0.3 mg/dL (0.2-1.0); CALCIUM, SERUM 9.9 mg/dL (8.5-10.1); CREATININE 2.4 mg/dL (0.6-1.3); MAGNESIUM 2.3 mg/dL (1.8-2.4); PHOSPHORUS 3.3 mg/dL (2.5-4.9); POTASSIUM 4.1 mmol/L (3.5-5.1); TOTAL PROTEIN, SERUM 7.1 g/dL (6.4-8.2)
[2019-11-09 07:51] VITALS: BP 165/75
--- NOTE | 2019-11-09 07:58 | NUR ---
RT RECEIVED PT ON CURRENT SETTINGS. TRACHED WITH PORTEX 7. HOB AT 30 DEGREES. AMBU BAG AT HEAD OF BED. SPARE TRACH AT BEDSIDE. VENT PLUGGED IN TO RED OUTLET. ALARM ON AND AUDIBLE. NO RESPIRATORY DISTRESS. WILL CONTINUE TO MONITOR. Addendum: 11/09/19 at 0909 by MEHDI HAUSER RT Amended: Links added.
[2019-11-09] MEDS: MEROPENEM 500 MG in IV NS 0.9% 50 ML IV SCH ×2 (08:00→20:00)
[2019-11-09] MEDS: INSULIN GLARGINE SQ SCH ×2 (09:00→20:55)
[2019-11-09] MEDS: HYDROGEN PEROXIDE 480 ML BOTTLE TP SCH ×2 (09:00→20:33)
[2019-11-09] MEDS: BASAGLAR SQ SCH ×2 (09:00→20:55)
[2019-11-09] MEDS: LACTOBACILLUS RHAMNOSUS GG 1 EACH CAP.SPRINK GT SCH ×2 (09:34→17:00)
[2019-11-09] MEDS: LORATADINE 10 MG TABLET GT SCH (09:34)
[2019-11-09] MEDS: DOCUSATE SODIUM LIQ 100 MG/10 ML UDC GT SCH ×2 (09:34→20:54)
[2019-11-09] MEDS: FERROUS SULFATE UDC 300 MG/5 ML UDC GT SCH (09:34)
[2019-11-09] MEDS: DOXAZOSIN MESYLATE (4 MG) 4 MG TABLET GT SCH ×2 (09:34→20:54)
[2019-11-09] MEDS: ISOSORBIDE DINITRATE (20MG) 20 MG TABLET GT SCH ×3 (09:34→17:00)
[2019-11-09] MEDS: VIT B CMPLX 3/FA/VIT C/BIOTIN 1 TAB TABLET GT SCH (09:35)
[2019-11-09] MEDS: SITAGLIPTIN PHOSPHATE 50 MG TABLET GT SCH (09:35)
[2019-11-09] MEDS: LEVETIRACETAM SOL (5 ML) 100 MG/ML UDC GT SCH ×2 (09:35→20:54)
[2019-11-09] MEDS: FAMOTIDINE (20 MG) 20 MG TABLET GT SCH (09:35)
[2019-11-09] MEDS: AMLODIPINE BESYLATE 10 MG TABLET GT SCH (09:35)
[2019-11-09] MEDS: MINOXIDIL (2.5MG) 2.5 MG TABLET GT SCH (09:35)
[2019-11-09] MEDS: ACETAMINOPHEN 650 MG/20 ML UDC- SA PATIENTS-PAIN ONLY GT SCH (09:36)
[2019-11-09] MEDS: Z GUARD REMEDY 4 OZ OINT TP SCH ×2 (09:36→20:55)
[2019-11-09] MEDS: MINERAL OIL/PETROL OINT 396 GM JAR TP SCH ×2 (09:36→20:55)
[2019-11-09] MEDS: CHLORHEXIDINE GLUCONATE 15 ML UDC MM SCH (09:36)
[2019-11-09] MEDS: BACI/NEOM/POLY B OINT PKT 1 UDPKT PACKET TP SCH ×2 (09:36→20:55)
[2019-11-09] MEDS: RETACRIT 10,000 UNITS SQ SCH (11:00)
--- NOTE | 2019-11-09 15:30 | NUR ---
Seen and examined by Lidia Hoang NP, no new order given.
[2019-11-09] MEDS: NEPRO 1,000 ML BOTTLE GT PRN (18:38)
--- NOTE | 2019-11-09 20:33 | NUR ---
RT NOTE PT RECEIVED TRACHED ON MECHANICAL VENTILATION. AWAKE/ALERT. AMBU BAG/BACK UP TRACH @ BEDSIDE. TX GIVEN, NO ADVERSE REACTIONS NOTED. SX DONE, TRACH SECURED AND PATENT. ALARMS ON AND AUDIBLE. VENT PLUGGED TO RED OUTLET. NO SOB NOTED AT THIS TIME. WILL MONITOR. CONT. PULSE OX CONNECTED. Addendum: 11/09/19 at 2033 by MEGHAN MEHTA RT Amended: Links added.
[2019-11-09 20:43] VITALS: BP 97/67
[2019-11-09] MEDS: VANCOMYCIN 0.75 GM in IV D5W 250 ML IV SCH (21:00)
[2019-11-09] MEDS: SENNOSIDES 8.6 MG TABLET GT SCH (22:21)
[2019-11-10] MEDS: ALBUTEROL FS 2.5 MG/0.5 ML VIAL.NEB NEB SCH ×4 (01:37→19:37)
[2019-11-10] MEDS: IPRATROPIUM NEB FS 0.5 MG/2.5 ML AMPUL.NEB NEB SCH ×4 (01:37→19:37)
[2019-11-10] MEDS: hydrALAZINE HCL 25 MG TABLET GT SCH ×3 (05:11→21:54)
[2019-11-10] MEDS: METOCLOPRAMIDE HCL 10 MG/10 ML UDC GT SCH ×3 (05:12→21:54)
[2019-11-10] MEDS: CLONIDINE HCL 0.1 MG TABLET GT SCH ×3 (05:12→21:54)
[2019-11-10] MEDS: LABETALOL HCL 300 MG TABLET GT SCH ×3 (05:13→21:55)
[2019-11-10] MEDS: BLOOD SUGAR DIAGNOSTIC 1 EACH STRIP IN SCH ×4 (05:48→23:52)
[2019-11-10] MEDS: INSULIN ASPART/LISPRO 100 UNIT/ML CARTRIDGE SQ PRN ×5 (05:51→23:53)
[2019-11-10 07:54] VITALS: BP 165/83
[2019-11-10] MEDS: MEROPENEM 500 MG in IV NS 0.9% 50 ML IV SCH ×2 (08:00→20:00)
[2019-11-10] MEDS: LORATADINE 10 MG TABLET GT SCH (09:00)
[2019-11-10] MEDS: AMLODIPINE BESYLATE 10 MG TABLET GT SCH (09:00)
[2019-11-10] MEDS: INSULIN GLARGINE SQ SCH ×2 (09:00→22:00)
[2019-11-10] MEDS: DOXAZOSIN MESYLATE (4 MG) 4 MG TABLET GT SCH ×2 (09:00→21:54)
[2019-11-10] MEDS: LACTOBACILLUS RHAMNOSUS GG 1 EACH CAP.SPRINK GT SCH ×2 (09:00→17:18)
[2019-11-10] MEDS: MINOXIDIL (2.5MG) 2.5 MG TABLET GT SCH (09:00)
[2019-11-10] MEDS: SITAGLIPTIN PHOSPHATE 50 MG TABLET GT SCH (09:00)
[2019-11-10] MEDS: BACI/NEOM/POLY B OINT PKT 1 UDPKT PACKET TP SCH ×2 (09:00→21:55)
[2019-11-10] MEDS: DOCUSATE SODIUM LIQ 100 MG/10 ML UDC GT SCH ×2 (09:00→21:54)
[2019-11-10] MEDS: Z GUARD REMEDY 4 OZ OINT TP SCH ×2 (09:00→21:55)
[2019-11-10] MEDS: LEVETIRACETAM SOL (5 ML) 100 MG/ML UDC GT SCH ×2 (09:00→21:54)
[2019-11-10] MEDS: FERROUS SULFATE UDC 300 MG/5 ML UDC GT SCH (09:00)
[2019-11-10] MEDS: MINERAL OIL/PETROL OINT 396 GM JAR TP SCH ×2 (09:00→21:55)
[2019-11-10] MEDS: FAMOTIDINE (20 MG) 20 MG TABLET GT SCH (09:00)
[2019-11-10] MEDS: BASAGLAR SQ SCH ×2 (09:00→22:00)
[2019-11-10] MEDS: ISOSORBIDE DINITRATE (20MG) 20 MG TABLET GT SCH ×3 (09:00→17:18)
[2019-11-10] MEDS: CHLORHEXIDINE GLUCONATE 15 ML UDC MM SCH (09:00)
[2019-11-10] MEDS: VIT B CMPLX 3/FA/VIT C/BIOTIN 1 TAB TABLET GT SCH (09:00)
[2019-11-10] MEDS: ACETAMINOPHEN 650 MG/20 ML UDC- SA PATIENTS-PAIN ONLY GT SCH (10:00)
[2019-11-10] MEDS: HYDROGEN PEROXIDE 480 ML BOTTLE TP SCH ×2 (14:09→21:17)
--- NOTE | 2019-11-10 14:50 | NUR ---
RT NOTE: PATIENT RECEIVED TRACHED ON MECHANICAL VENT. ALARMS VERIFIED AND AUDIBLE. SUCTIONED AND LAVAGED SMALL-MODERATE AMOUNT OF THICK YELLOW SECRETIONS. ONE INSTANCE OF PINK TINGED SECRETION DUE TO PATIENT REQUESTING TO BE SUCTIONED EVERY HOUR. PATIENT UNDERSTANDS THAT TOO MUCH SUCTION ,WHEN HE DOESN'T HAVE SECRETIONS, CAN CAUSE TRAUMA. PINK TINGED SECRETIONS RESOLVED AFTER A FEW HOURS. VENT PLUGGED INTO RED OUTLET. AMBU BAG AND NEW TRACH AT [facility].
[2019-11-10] MEDS: NEPRO 1,000 ML BOTTLE GT PRN (17:18)
--- NOTE | 2019-11-10 19:30 | NUR ---
Seen by MAYRA Hoang no new orders.
[2019-11-10 20:17] VITALS: BP 149/57
--- NOTE | 2019-11-10 21:14 | NUR ---
PT RECEIVE STABLE ON MV, SETTINGS ARE SIMV 4, PS 15, +5 TITRATE FIO2 GREATER THAN OR EQUAL TO 94%, TRACH PATENT AND SECURED, VENT PLUG IN TO RED OUTLET, BACK UP TRACH AND AMBU BAG IS BEDSIDE, WILL CONTINUE TO MONITOR Addendum: 11/10/19 at 2115 by GILBERT ROGERS RT Amended: Links added.
[2019-11-10] MEDS: SENNOSIDES 8.6 MG TABLET GT SCH (21:55)
[2019-11-11] MEDS: ALBUTEROL FS 2.5 MG/0.5 ML VIAL.NEB NEB SCH ×4 (01:20→19:54)
[2019-11-11] MEDS: IPRATROPIUM NEB FS 0.5 MG/2.5 ML AMPUL.NEB NEB SCH ×4 (01:20→19:54)
[2019-11-11] MEDS: hydrALAZINE HCL 25 MG TABLET GT SCH ×3 (05:50→21:42)
[2019-11-11] MEDS: CLONIDINE HCL 0.1 MG TABLET GT SCH ×3 (05:51→21:43)
[2019-11-11] MEDS: LABETALOL HCL 300 MG TABLET GT SCH ×3 (05:51→21:43)
[2019-11-11] MEDS: BLOOD SUGAR DIAGNOSTIC 1 EACH STRIP IN SCH ×4 (05:51→23:41)
[2019-11-11] MEDS: METOCLOPRAMIDE HCL 10 MG/10 ML UDC GT SCH ×3 (05:51→21:43)
[2019-11-11] MEDS: INSULIN ASPART/LISPRO 100 UNIT/ML CARTRIDGE SQ PRN ×4 (05:53→23:43)
[2019-11-11 07:55] VITALS: BP 171/81
[2019-11-11] MEDS: MEROPENEM 500 MG in IV NS 0.9% 50 ML IV SCH ×2 (08:02→20:00)
[2019-11-11] MEDS: HYDROGEN PEROXIDE 480 ML BOTTLE TP SCH ×2 (08:17→21:00)
[2019-11-11] MEDS: DOXAZOSIN MESYLATE (4 MG) 4 MG TABLET GT SCH ×2 (09:00→21:42)
[2019-11-11] MEDS: AMLODIPINE BESYLATE 10 MG TABLET GT SCH (09:00)
[2019-11-11] MEDS: VIT B CMPLX 3/FA/VIT C/BIOTIN 1 TAB TABLET GT SCH (09:00)
[2019-11-11] MEDS: MINOXIDIL (2.5MG) 2.5 MG TABLET GT SCH (09:00)
[2019-11-11] MEDS: BASAGLAR SQ SCH ×2 (09:00→21:47)
[2019-11-11] MEDS: INSULIN GLARGINE SQ SCH ×2 (09:00→21:47)
[2019-11-11] MEDS: ACETAMINOPHEN 650 MG/20 ML UDC- SA PATIENTS-PAIN ONLY GT SCH (09:00)
[2019-11-11] MEDS: SITAGLIPTIN PHOSPHATE 50 MG TABLET GT SCH (09:00)
[2019-11-11] MEDS: CHLORHEXIDINE GLUCONATE 15 ML UDC MM SCH (09:00)
[2019-11-11] MEDS: DOCUSATE SODIUM LIQ 100 MG/10 ML UDC GT SCH ×2 (09:00→21:43)
[2019-11-11] MEDS: BACI/NEOM/POLY B OINT PKT 1 UDPKT PACKET TP SCH ×2 (09:00→21:47)
[2019-11-11] MEDS: FAMOTIDINE (20 MG) 20 MG TABLET GT SCH (09:00)
[2019-11-11] MEDS: LEVETIRACETAM SOL (5 ML) 100 MG/ML UDC GT SCH ×2 (09:00→21:43)
[2019-11-11] MEDS: ISOSORBIDE DINITRATE (20MG) 20 MG TABLET GT SCH ×3 (09:00→17:49)
[2019-11-11] MEDS: Z GUARD REMEDY 4 OZ OINT TP SCH ×2 (09:00→21:47)
[2019-11-11] MEDS: LACTOBACILLUS RHAMNOSUS GG 1 EACH CAP.SPRINK GT SCH ×2 (09:00→17:49)
[2019-11-11] MEDS: MINERAL OIL/PETROL OINT 396 GM JAR TP SCH ×2 (09:00→21:47)
[2019-11-11] MEDS: LORATADINE 10 MG TABLET GT SCH (09:00)
[2019-11-11] MEDS: FERROUS SULFATE UDC 300 MG/5 ML UDC GT SCH (09:00)
[2019-11-11] MEDS: VANCOMYCIN 0.75 GM in IV D5W 250 ML IV SCH (10:00)
--- NOTE | 2019-11-11 11:53 | NUR ---
Family Invitation to Holiday Lunch-In and IDT: Complaint Evaluation Officer contacted the patients responsible democrat/Uncles, Keith and Millie Klein [phone] to invite her to attend the Interdisciplinary Plan of Care Conference taking place 11/18/19 from 12:30pm-1:30pm and the Family Holiday Lunch-In taking place 11/17/19 from 11:30pm-1:00pm. Per Keith they will try to attend both the lunch-in and IDT. Noted.
--- NOTE | 2019-11-11 15:07 | NUR ---
Pt received trach'd and on [facility] vent w charted settings.Vent is plugged into red out w alarms set and audible. Trach is secure and patent. Bmv @ [employer]. Pt is stable. No resp distress or sob noted t/o shift. Will continue to monitor. Addendum: 11/11/19 at 1512 by ABHIJIT DEE RT Amended: Links added.
[2019-11-11] MEDS: SENNOSIDES 8.6 MG TABLET GT SCH (21:47)
[2019-11-11 22:16] VITALS: BP 152/66
--- NOTE | 2019-11-11 23:07 | NUR ---
PT RECEIVE STABLE ON MV, SETTINGS ARE SIMV 4 PS 15 +5 35% FIO2, ALARMS ARE ON AND AUDIBLE, TRACH PATENT AND SECURED, LEANN HADDAD AND JOCELIN CROW IS AT BEDSIDE, WILL CONTINUE TO MONITOR Addendum: 11/11/19 at 2307 by GILBERT ROGERS RT Amended: Links added.
[2019-11-12] MEDS: ALBUTEROL FS 2.5 MG/0.5 ML VIAL.NEB NEB SCH ×4 (02:03→19:57)
[2019-11-12] MEDS: IPRATROPIUM NEB FS 0.5 MG/2.5 ML AMPUL.NEB NEB SCH ×4 (02:03→19:57)
[2019-11-12] MEDS: hydrALAZINE HCL 25 MG TABLET GT SCH ×3 (05:17→21:00)
[2019-11-12] MEDS: BLOOD SUGAR DIAGNOSTIC 1 EACH STRIP IN SCH ×4 (05:18→23:40)
[2019-11-12] MEDS: METOCLOPRAMIDE HCL 10 MG/10 ML UDC GT SCH ×3 (05:18→21:00)
[2019-11-12] MEDS: LABETALOL HCL 300 MG TABLET GT SCH ×3 (05:18→21:00)
[2019-11-12] MEDS: CLONIDINE HCL 0.1 MG TABLET GT SCH ×3 (05:18→21:00)
[2019-11-12] MEDS: INSULIN ASPART/LISPRO 100 UNIT/ML CARTRIDGE SQ PRN ×4 (05:19→23:42)
[2019-11-12 07:45] VITALS: BP 156/75
[2019-11-12] MEDS: HYDROGEN PEROXIDE 480 ML BOTTLE TP SCH ×2 (08:10→21:46)
--- NOTE | 2019-11-12 08:23 | NUR ---
Seen and examined by Dr. Treadwell, reported tomorrow will be patient's last dose of ATB. Afebrile at 98.1, F/C draining well. No new order given at this time.
[2019-11-12] MEDS: MEROPENEM 500 MG in IV NS 0.9% 50 ML IV SCH ×2 (08:30→20:00)
[2019-11-12] MEDS: DOXAZOSIN MESYLATE (4 MG) 4 MG TABLET GT SCH ×2 (08:52→21:00)
[2019-11-12] MEDS: MINOXIDIL (2.5MG) 2.5 MG TABLET GT SCH (08:53)
[2019-11-12] MEDS: SITAGLIPTIN PHOSPHATE 50 MG TABLET GT SCH (08:53)
[2019-11-12] MEDS: DOCUSATE SODIUM LIQ 100 MG/10 ML UDC GT SCH ×2 (08:53→21:00)
[2019-11-12] MEDS: LORATADINE 10 MG TABLET GT SCH (08:53)
[2019-11-12] MEDS: VIT B CMPLX 3/FA/VIT C/BIOTIN 1 TAB TABLET GT SCH (08:53)
[2019-11-12] MEDS: LEVETIRACETAM SOL (5 ML) 100 MG/ML UDC GT SCH ×2 (08:53→21:00)
[2019-11-12] MEDS: AMLODIPINE BESYLATE 10 MG TABLET GT SCH (08:53)
[2019-11-12] MEDS: ISOSORBIDE DINITRATE (20MG) 20 MG TABLET GT SCH ×3 (08:53→16:39)
[2019-11-12] MEDS: FERROUS SULFATE UDC 300 MG/5 ML UDC GT SCH (08:53)
[2019-11-12] MEDS: LACTOBACILLUS RHAMNOSUS GG 1 EACH CAP.SPRINK GT SCH ×2 (08:53→16:38)
[2019-11-12] MEDS: ACETAMINOPHEN 650 MG/20 ML UDC- SA PATIENTS-PAIN ONLY GT SCH (08:54)
[2019-11-12] MEDS: CHLORHEXIDINE GLUCONATE 15 ML UDC MM SCH (08:54)
[2019-11-12] MEDS: FAMOTIDINE (20 MG) 20 MG TABLET GT SCH (08:54)
[2019-11-12] MEDS: BASAGLAR SQ SCH ×2 (08:55→21:00)
[2019-11-12] MEDS: INSULIN GLARGINE SQ SCH ×2 (08:55→21:00)
[2019-11-12] MEDS: Z GUARD REMEDY 4 OZ OINT TP SCH ×2 (08:56→21:00)
[2019-11-12] MEDS: BACI/NEOM/POLY B OINT PKT 1 UDPKT PACKET TP SCH ×2 (08:56→21:00)
[2019-11-12] MEDS: MINERAL OIL/PETROL OINT 396 GM JAR TP SCH ×2 (08:56→21:00)
--- NOTE | 2019-11-12 16:13 | NUR ---
RT NOTES TRACH TUBE IN PLACE, PATENT, AND SECURED WITH TRACH TIE. RECEIVED PT ON VENT WITH ORDERED SETTINGS. ALARMS ON AND AUDIBLE. VENT PLUGGED IN TO THE RED OUTLET. BACK UP TRACH, AND AMBU BAG BY THE BEDSIDE. NO SIGNS OF ANY DISTRESS AT THIS TIME. Addendum: 11/12/19 at 1613 by LORI LOERA RT Amended: Links added.
[2019-11-12] MEDS: NEPRO 1,000 ML BOTTLE GT PRN (16:34)
[2019-11-12 19:35] VITALS: BP 167/76
[2019-11-12] MEDS: VANCOMYCIN 0.75 GM in IV D5W 250 ML IV SCH (21:00)
[2019-11-12] MEDS: SENNOSIDES 8.6 MG TABLET GT SCH (22:32)
[2019-11-13] MEDS: IPRATROPIUM NEB FS 0.5 MG/2.5 ML AMPUL.NEB NEB SCH ×4 (01:58→20:03)
[2019-11-13] MEDS: ALBUTEROL FS 2.5 MG/0.5 ML VIAL.NEB NEB SCH ×4 (01:58→20:03)
--- NOTE | 2019-11-13 03:43 | NUR ---
RT NOTES: PT RECEIVED TRACHED ON [facility] VENT ON CHARTED SETTINGS. NO SIGNS OF RESP DISTRESS NOTED T/O SHIFT. PT SUCTIONED. FIELD MAP EDITOR DONE. PT RECEIVED ORDERED HHN TXS. ALARMS SET AND AUDIBLE. AMBUBAG AND SPARE TRACH PRESENT. VENT CONNECTED TO RED OUTLET. WILL CONT TO MONITOR. Addendum: 11/13/19 at 0446 by GINETTE MAHONEY RT Amended: Links added.
[2019-11-13] MEDS: BLOOD SUGAR DIAGNOSTIC 1 EACH STRIP IN SCH ×3 (05:58→18:19)
[2019-11-13] MEDS: METOCLOPRAMIDE HCL 10 MG/10 ML UDC GT SCH ×3 (05:58→21:44)
[2019-11-13] MEDS: LABETALOL HCL 300 MG TABLET GT SCH ×3 (05:58→21:44)
[2019-11-13] MEDS: hydrALAZINE HCL 25 MG TABLET GT SCH ×3 (05:58→21:43)
[2019-11-13] MEDS: CLONIDINE HCL 0.1 MG TABLET GT SCH ×3 (05:58→21:43)
[2019-11-13] MEDS: INSULIN ASPART/LISPRO 100 UNIT/ML CARTRIDGE SQ PRN ×2 (05:59→18:21)
[2019-11-13 07:30] VITALS: BP 153/76
[2019-11-13 07:31] LABS: BASOPHILS # (AUTO) 0.1 /CMM (0.0-0.2); BASOPHILS % (AUTO) 0.7 % (0.0-2.0); EOSINOPHILS % (AUTO) 18.7 % (0.0-6.0); HEMATOCRIT 25 % (39-51); HEMOGLOBIN 7.9 g/dL (13.5-17.5); LYMPHOCYTES # (AUTO) 1.4 /CMM (0.8-4.8); LYMPHOCYTES % (AUTO) 7.3 % (20.0-44.0); MEAN CORPUSCULAR HGB CONC 32 g/dl (31.0-36.0); MEAN CORPUSCULAR VOLUME 91 fL (80-96); MONOCYTES # (AUTO) 1.6 /CMM (0.1-1.30); MONOCYTES % (AUTO) 8.2 % (2.0-12.0); NEUTROPHILS # (AUTO) 12.9 /CMM (1.8-8.9); NEUTROPHILS % (AUTO) 65.1 % (43.0-81.0); PLATELET COUNT (AUTO) 274 /CMM (150-450); RED BLOOD CELL COUNT(AUTO) 2.74 MIL/uL (4.5-6.0); WHITE BLOOD COUNT (AUTO) 19.8 K/uL (4.3-11.0)
[2019-11-13 07:55] LABS: ALBUMIN 2.3 g/dL (3.4-5.0); BILIRUBIN,TOTAL 0.3 mg/dL (0.2-1.0); CALCIUM, SERUM 9.6 mg/dL (8.5-10.1); CREATININE 2.5 mg/dL (0.6-1.3); MAGNESIUM 2.4 mg/dL (1.8-2.4); PHOSPHORUS 3.5 mg/dL (2.5-4.9); TOTAL PROTEIN, SERUM 6.9 g/dL (6.4-8.2)
[2019-11-13] MEDS: MEROPENEM 500 MG in IV NS 0.9% 50 ML IV SCH (08:10)
[2019-11-13] MEDS: HYDROGEN PEROXIDE 480 ML BOTTLE TP SCH ×2 (08:18→21:30)
[2019-11-13] MEDS: LORATADINE 10 MG TABLET GT SCH (09:00)
[2019-11-13] MEDS: BACI/NEOM/POLY B OINT PKT 1 UDPKT PACKET TP SCH ×2 (09:00→21:45)
[2019-11-13] MEDS: INSULIN GLARGINE SQ SCH ×2 (09:00→21:45)
[2019-11-13] MEDS: DOXAZOSIN MESYLATE (4 MG) 4 MG TABLET GT SCH ×2 (09:00→21:43)
[2019-11-13] MEDS: LACTOBACILLUS RHAMNOSUS GG 1 EACH CAP.SPRINK GT SCH ×2 (09:00→17:07)
[2019-11-13] MEDS: VIT B CMPLX 3/FA/VIT C/BIOTIN 1 TAB TABLET GT SCH (09:00)
[2019-11-13] MEDS: BASAGLAR SQ SCH ×2 (09:00→21:45)
[2019-11-13] MEDS: ACETAMINOPHEN 650 MG/20 ML UDC- SA PATIENTS-PAIN ONLY GT SCH (09:00)
[2019-11-13] MEDS: MINERAL OIL/PETROL OINT 396 GM JAR TP SCH ×2 (09:00→21:45)
[2019-11-13] MEDS: ISOSORBIDE DINITRATE (20MG) 20 MG TABLET GT SCH ×3 (09:00→17:08)
[2019-11-13] MEDS: FAMOTIDINE (20 MG) 20 MG TABLET GT SCH (09:00)
[2019-11-13] MEDS: LEVETIRACETAM SOL (5 ML) 100 MG/ML UDC GT SCH ×2 (09:00→21:44)
[2019-11-13] MEDS: Z GUARD REMEDY 4 OZ OINT TP SCH ×2 (09:00→21:45)
[2019-11-13] MEDS: FERROUS SULFATE UDC 300 MG/5 ML UDC GT SCH (09:00)
[2019-11-13] MEDS: AMLODIPINE BESYLATE 10 MG TABLET GT SCH (09:00)
[2019-11-13] MEDS: SITAGLIPTIN PHOSPHATE 50 MG TABLET GT SCH (09:00)
[2019-11-13] MEDS: MINOXIDIL (2.5MG) 2.5 MG TABLET GT SCH (09:00)
[2019-11-13] MEDS: CHLORHEXIDINE GLUCONATE 15 ML UDC MM SCH (09:00)
[2019-11-13] MEDS: DOCUSATE SODIUM LIQ 100 MG/10 ML UDC GT SCH ×2 (09:00→21:44)
--- NOTE | 2019-11-13 09:15 | NUR ---
Callled Dr. Treadwell office to informed about abnormal lab results, sodium 135, chloride 127, will await for further orders.
[2019-11-13] MEDS: NEPRO 1,000 ML BOTTLE GT PRN (12:28)
--- NOTE | 2019-11-13 17:00 | NUR ---
Received a new order from Dr. Treadwell to increase water flush to 250ml every 4 hours, order carried out and responsible constitution party aware.
--- NOTE | 2019-11-13 17:27 | NUR ---
RT NOTE RECEIVED PATIENT ON TRACH WITH VENTILATOR. TRACH IS PATENT AND SECURED.VENT IS PLUGGED TO RED OUTLET, ALARMS ARE SET AND AUDIBLE. SPARE TRACH AND BVM IS AT BEDSIDE. PATIENT IS STABLE AND IN SYNC WITH THE VENT. PATIENT HAS EQUAL CHEST RISE AND HAS COARSE BILATERAL BREATH SOUNDS. SUCTION SMALL AMOUNT OF THICK YELLOW SECRETIONS TROUGH OUT THE DAY. GAVE BREATHING TREATMENTS WITH NO ADVERSE REACTION. Addendum: 11/13/19 at 1727 by DIA PIERRE RT Amended: Links added.
[2019-11-13] MEDS: BISACODYL SUPP (10 MG) 10 MG/SUPP.RECT SUPP.RECT RC PRN (18:49)
[2019-11-13 20:53] VITALS: BP 162/77
[2019-11-13] MEDS: SENNOSIDES 8.6 MG TABLET GT SCH (21:45)
[2019-11-13 22:12] VITALS: BP 162/77
[2019-11-14] MEDS: BLOOD SUGAR DIAGNOSTIC 1 EACH STRIP IN SCH ×5 (00:20→23:30)
[2019-11-14] MEDS: INSULIN ASPART/LISPRO 100 UNIT/ML CARTRIDGE SQ PRN ×4 (00:21→23:31)
[2019-11-14] MEDS: IPRATROPIUM NEB FS 0.5 MG/2.5 ML AMPUL.NEB NEB SCH ×4 (01:53→20:18)
[2019-11-14] MEDS: ALBUTEROL FS 2.5 MG/0.5 ML VIAL.NEB NEB SCH ×4 (01:53→20:18)
[2019-11-14] MEDS: hydrALAZINE HCL 25 MG TABLET GT SCH ×3 (05:58→20:47)
[2019-11-14] MEDS: CLONIDINE HCL 0.1 MG TABLET GT SCH ×3 (05:58→20:48)
[2019-11-14] MEDS: METOCLOPRAMIDE HCL 10 MG/10 ML UDC GT SCH ×3 (05:58→20:48)
[2019-11-14] MEDS: LABETALOL HCL 300 MG TABLET GT SCH ×3 (05:59→20:48)
[2019-11-14 07:48] VITALS: BP 170/86
[2019-11-14] MEDS: HYDROGEN PEROXIDE 480 ML BOTTLE TP SCH ×2 (08:15→21:00)
[2019-11-14] MEDS: Z GUARD REMEDY 4 OZ OINT TP SCH ×2 (09:00→20:48)
[2019-11-14] MEDS: FAMOTIDINE (20 MG) 20 MG TABLET GT SCH (09:00)
[2019-11-14] MEDS: SITAGLIPTIN PHOSPHATE 50 MG TABLET GT SCH (09:00)
[2019-11-14] MEDS: INSULIN GLARGINE SQ SCH ×2 (09:00→21:40)
[2019-11-14] MEDS: DOCUSATE SODIUM LIQ 100 MG/10 ML UDC GT SCH ×2 (09:00→20:48)
[2019-11-14] MEDS: AMLODIPINE BESYLATE 10 MG TABLET GT SCH (09:00)
[2019-11-14] MEDS: ACETAMINOPHEN 650 MG/20 ML UDC- SA PATIENTS-PAIN ONLY GT SCH (09:00)
[2019-11-14] MEDS: BASAGLAR SQ SCH ×2 (09:00→21:40)
[2019-11-14] MEDS: LEVETIRACETAM SOL (5 ML) 100 MG/ML UDC GT SCH ×2 (09:00→20:48)
[2019-11-14] MEDS: FERROUS SULFATE UDC 300 MG/5 ML UDC GT SCH (09:00)
[2019-11-14] MEDS: LACTOBACILLUS RHAMNOSUS GG 1 EACH CAP.SPRINK GT SCH ×2 (09:00→16:57)
[2019-11-14] MEDS: BACI/NEOM/POLY B OINT PKT 1 UDPKT PACKET TP SCH ×2 (09:00→20:48)
[2019-11-14] MEDS: LORATADINE 10 MG TABLET GT SCH (09:00)
[2019-11-14] MEDS: MINOXIDIL (2.5MG) 2.5 MG TABLET GT SCH (09:00)
[2019-11-14] MEDS: VIT B CMPLX 3/FA/VIT C/BIOTIN 1 TAB TABLET GT SCH (09:00)
[2019-11-14] MEDS: DOXAZOSIN MESYLATE (4 MG) 4 MG TABLET GT SCH ×2 (09:00→20:48)
[2019-11-14] MEDS: CHLORHEXIDINE GLUCONATE 15 ML UDC MM SCH (09:00)
[2019-11-14] MEDS: MINERAL OIL/PETROL OINT 396 GM JAR TP SCH ×2 (09:00→20:48)
[2019-11-14] MEDS: ISOSORBIDE DINITRATE (20MG) 20 MG TABLET GT SCH ×3 (09:00→16:58)
--- NOTE | 2019-11-14 12:07 | NUR ---
Dr Valles ordered D5W at 100 mL/hr IV until further order for hydration, hypernatremia. Notified
[2019-11-14] MEDS: IV D5W 1,000 ML IV PRN ×2 (12:30→22:25)
--- NOTE | 2019-11-14 17:03 | NUR ---
Seen by ANIMATOR Lidia Hoang. Relayed lab results to her. Pt completed antibiotic therapy yesterday. She ordered to do CBC in AM.
[2019-11-14 20:38] VITALS: BP 146/77
[2019-11-14] MEDS: SENNOSIDES 8.6 MG TABLET GT SCH (21:40)
--- NOTE | 2019-11-14 23:37 | NUR ---
RT NOTE Pt rec'd trached on [facility] vent on SIMV mode. No resp distress or sob noted. trach is patent and secured. Sx'd for thick mod amt of pale yellow secretions. Alarms are set and audible. Vent plugged into red outlet. Ambu bag bedside. Will continue to monitor closely. Addendum: 11/14/19 at 2338 by CRISTIANE NAVA RT Amended: Links added.
[2019-11-15] MEDS: IPRATROPIUM NEB FS 0.5 MG/2.5 ML AMPUL.NEB NEB SCH ×4 (01:43→20:02)
[2019-11-15] MEDS: ALBUTEROL FS 2.5 MG/0.5 ML VIAL.NEB NEB SCH ×4 (01:43→20:02)
--- NOTE | 2019-11-15 08:15 | NUR ---
RT PT RECEIVED ON CURRENT VENT SETTINGS. TRACHED WITH PORTEX 7. VENT PLUGGED IN TO RED OUTLET. AMBU BAG AT HEAD OF BED. SPARE TRACH AT BEDSIDE. ALARMS ON AND AUDIBLE. NO RESPIRATORY DISTRESS. HEAD OF BED AT 30 DEGREES. WILL CONTINUE TO MONITOR. Addendum: 11/15/19 at 1628 by MEHDI HAUSER RT Amended: Links added.
[2019-11-15 08:57] LABS: BASOPHILS # (AUTO) 0.1 /CMM (0.0-0.2); BASOPHILS % (AUTO) 0.6 % (0.0-2.0); EOSINOPHILS % (AUTO) 21.5 % (0.0-6.0); HEMATOCRIT 25 % (39-51); HEMOGLOBIN 8.1 g/dL (13.5-17.5); LYMPHOCYTES # (AUTO) 1.2 /CMM (0.8-4.8); LYMPHOCYTES % (AUTO) 8.3 % (20.0-44.0); MEAN CORPUSCULAR HGB CONC 32 g/dl (31.0-36.0); MEAN CORPUSCULAR VOLUME 91 fL (80-96); MONOCYTES # (AUTO) 0.9 /CMM (0.1-1.30); MONOCYTES % (AUTO) 6.5 % (2.0-12.0); NEUTROPHILS % (AUTO) 63.1 % (43.0-81.0); PLATELET COUNT (AUTO) 259 /CMM (150-450); WHITE BLOOD COUNT (AUTO) 14.3 K/uL (4.3-11.0)
[2019-11-15] MEDS: FAMOTIDINE (20 MG) 20 MG TABLET GT SCH (09:00)
[2019-11-15] MEDS: LEVETIRACETAM SOL (5 ML) 100 MG/ML UDC GT SCH ×2 (09:00→21:08)
[2019-11-15] MEDS: ISOSORBIDE DINITRATE (20MG) 20 MG TABLET GT SCH ×3 (09:00→16:14)
[2019-11-15] MEDS: MINOXIDIL (2.5MG) 2.5 MG TABLET GT SCH (09:00)
[2019-11-15] MEDS: DOCUSATE SODIUM LIQ 100 MG/10 ML UDC GT SCH ×2 (09:00→21:08)
[2019-11-15] MEDS: CHLORHEXIDINE GLUCONATE 15 ML UDC MM SCH (09:00)
[2019-11-15] MEDS: DOXAZOSIN MESYLATE (4 MG) 4 MG TABLET GT SCH ×2 (09:00→21:08)
[2019-11-15] MEDS: BACI/NEOM/POLY B OINT PKT 1 UDPKT PACKET TP SCH ×2 (09:00→21:10)
[2019-11-15] MEDS: VIT B CMPLX 3/FA/VIT C/BIOTIN 1 TAB TABLET GT SCH (09:00)
[2019-11-15] MEDS: SITAGLIPTIN PHOSPHATE 50 MG TABLET GT SCH (09:00)
[2019-11-15] MEDS: ACETAMINOPHEN 650 MG/20 ML UDC- SA PATIENTS-PAIN ONLY GT SCH (09:00)
[2019-11-15] MEDS: FERROUS SULFATE UDC 300 MG/5 ML UDC GT SCH (09:00)
[2019-11-15] MEDS: BASAGLAR SQ SCH ×2 (09:00→21:09)
[2019-11-15] MEDS: Z GUARD REMEDY 4 OZ OINT TP SCH ×2 (09:00→21:10)
[2019-11-15] MEDS: LACTOBACILLUS RHAMNOSUS GG 1 EACH CAP.SPRINK GT SCH ×2 (09:00→16:13)
[2019-11-15] MEDS: AMLODIPINE BESYLATE 10 MG TABLET GT SCH (09:00)
[2019-11-15] MEDS: LORATADINE 10 MG TABLET GT SCH (09:00)
[2019-11-15] MEDS: MINERAL OIL/PETROL OINT 396 GM JAR TP SCH ×2 (09:00→21:10)
[2019-11-15] MEDS: INSULIN GLARGINE SQ SCH ×2 (09:00→21:09)
[2019-11-15] MEDS: HYDROGEN PEROXIDE 480 ML BOTTLE TP SCH ×2 (09:16→21:00)
[2019-11-15 11:41] VITALS: BP 163/74
[2019-11-15] MEDS: IV D5W 1,000 ML IV PRN ×2 (12:00→22:30)
[2019-11-15] MEDS: BLOOD SUGAR DIAGNOSTIC 1 EACH STRIP IN SCH ×2 (12:00→17:30)
[2019-11-15] MEDS: LABETALOL HCL 300 MG TABLET GT SCH ×2 (12:26→21:09)
[2019-11-15] MEDS: CLONIDINE HCL 0.1 MG TABLET GT SCH ×2 (12:40→21:08)
[2019-11-15] MEDS: hydrALAZINE HCL 25 MG TABLET GT SCH ×2 (12:40→21:08)
[2019-11-15] MEDS: METOCLOPRAMIDE HCL 10 MG/10 ML UDC GT SCH ×2 (12:41→21:08)
[2019-11-15] MEDS: INSULIN ASPART/LISPRO 100 UNIT/ML CARTRIDGE SQ PRN ×2 (15:10→17:31)
--- NOTE | 2019-11-15 15:50 | NUR ---
Seen by Dr Braun today. Received order to decrease PSV from 15 to 12. RT Jess changed the vent setting as ordered by Dr Braun.
[2019-11-15 20:50] VITALS: BP 138/60
[2019-11-15] MEDS: SENNOSIDES 8.6 MG TABLET GT SCH (21:10)
[2019-11-15 22:21] VITALS: BP 138/60
[2019-11-16] MEDS: BLOOD SUGAR DIAGNOSTIC 1 EACH STRIP IN SCH ×5 (00:17→23:15)
[2019-11-16] MEDS: INSULIN ASPART/LISPRO 100 UNIT/ML CARTRIDGE SQ PRN ×6 (00:19→23:17)
[2019-11-16] MEDS: ALBUTEROL FS 2.5 MG/0.5 ML VIAL.NEB NEB SCH ×4 (01:29→19:38)
[2019-11-16] MEDS: IPRATROPIUM NEB FS 0.5 MG/2.5 ML AMPUL.NEB NEB SCH ×4 (01:29→19:38)
[2019-11-16] MEDS: METOCLOPRAMIDE HCL 10 MG/10 ML UDC GT SCH ×3 (05:00→20:45)
[2019-11-16] MEDS: CLONIDINE HCL 0.1 MG TABLET GT SCH ×3 (05:00→20:45)
[2019-11-16] MEDS: LABETALOL HCL 300 MG TABLET GT SCH ×3 (05:00→20:46)
[2019-11-16] MEDS: hydrALAZINE HCL 25 MG TABLET GT SCH ×3 (06:00→20:45)
--- NOTE | 2019-11-16 06:00 | NUR ---
RN NOTES Noted with right forearm and right lower leg and foot pitting (+2) edema. Elevated both extremities on pillows. Will continue to monitor and endorse to following shift to notify MD.
[2019-11-16 08:28] VITALS: BP 174/61
[2019-11-16] MEDS: BACI/NEOM/POLY B OINT PKT 1 UDPKT PACKET TP SCH ×2 (09:00→20:47)
[2019-11-16] MEDS: HYDROGEN PEROXIDE 480 ML BOTTLE TP SCH ×2 (09:00→21:00)
[2019-11-16] MEDS: MINERAL OIL/PETROL OINT 396 GM JAR TP SCH ×2 (09:00→20:47)
[2019-11-16] MEDS: Z GUARD REMEDY 4 OZ OINT TP SCH ×2 (09:00→20:47)
[2019-11-16] MEDS: ISOSORBIDE DINITRATE (20MG) 20 MG TABLET GT SCH ×3 (09:16→17:00)
[2019-11-16] MEDS: MINOXIDIL (2.5MG) 2.5 MG TABLET GT SCH (09:16)
[2019-11-16] MEDS: SITAGLIPTIN PHOSPHATE 50 MG TABLET GT SCH (09:16)
[2019-11-16] MEDS: DOXAZOSIN MESYLATE (4 MG) 4 MG TABLET GT SCH ×2 (09:16→20:45)
[2019-11-16] MEDS: LEVETIRACETAM SOL (5 ML) 100 MG/ML UDC GT SCH ×2 (09:16→20:45)
[2019-11-16] MEDS: AMLODIPINE BESYLATE 10 MG TABLET GT SCH (09:17)
[2019-11-16] MEDS: BASAGLAR SQ SCH ×2 (09:17→20:46)
[2019-11-16] MEDS: INSULIN GLARGINE SQ SCH ×2 (09:17→20:46)
[2019-11-16] MEDS: FAMOTIDINE (20 MG) 20 MG TABLET GT SCH (09:22)
[2019-11-16] MEDS: DOCUSATE SODIUM LIQ 100 MG/10 ML UDC GT SCH ×2 (09:22→20:45)
[2019-11-16] MEDS: ACETAMINOPHEN 650 MG/20 ML UDC- SA PATIENTS-PAIN ONLY GT SCH (09:22)
[2019-11-16] MEDS: VIT B CMPLX 3/FA/VIT C/BIOTIN 1 TAB TABLET GT SCH (09:22)
[2019-11-16] MEDS: FERROUS SULFATE UDC 300 MG/5 ML UDC GT SCH (09:22)
[2019-11-16] MEDS: LORATADINE 10 MG TABLET GT SCH (09:24)
[2019-11-16] MEDS: LACTOBACILLUS RHAMNOSUS GG 1 EACH CAP.SPRINK GT SCH ×2 (09:24→17:00)
[2019-11-16] MEDS: CHLORHEXIDINE GLUCONATE 15 ML UDC MM SCH (09:25)
--- NOTE | 2019-11-16 09:58 | NUR ---
WheelChair Update: JOELLE received fax from [employer].TEL:[phone] FAX:[phone] with the confirmation of order attached. signed the documents and JOELLE faxed the documents back to Arianna at [employer]. FAX:[phone]. JOELLE received completed fax receipt.
[2019-11-16] MEDS: RETACRIT 10,000 UNITS SQ SCH (11:00)
--- NOTE | 2019-11-16 11:20 | NUR ---
Left a message to Dr. Kan regarding patient's episode of vomiting as well as Dr. Valles. Resident vomited x2 this morning with moderate to large amount of partially digested formula. patient also with weight gain of 6.9 lbs in 2 weeks and noted with edema in the R lower extremity and R hand. Patient currently on Reglan 5 mg. Q 8hours and IVF D5W at 100 cc/hr. V/S 182/84, 80, 98.4. Dr. Valles said that he will review the labs and will enter order in [employer]. Awaiting for new orders.
[2019-11-16] MEDS ORDERED: ONDANSETRON HCL/PF 4 MG/2 ML VIAL IV PRN (12:00)
--- NOTE | 2019-11-16 12:30 | NUR ---
Noted an order from Dr. Valles to do BD KUB, BMP, CBC, Mg and Phos in AM and PRN Zofran for nausea and vomiting. Order carried out.
[2019-11-16] MEDS: IV D5W 1,000 ML IV PRN ×2 (12:42→21:48)
[2019-11-16 20:19] VITALS: BP 149/69
[2019-11-16] MEDS: SENNOSIDES 8.6 MG TABLET GT SCH (21:14)
[2019-11-17] MEDS: ALBUTEROL FS 2.5 MG/0.5 ML VIAL.NEB NEB SCH ×4 (00:56→20:04)
[2019-11-17] MEDS: IPRATROPIUM NEB FS 0.5 MG/2.5 ML AMPUL.NEB NEB SCH ×4 (00:56→20:04)
[2019-11-17] MEDS: LABETALOL HCL 300 MG TABLET GT SCH ×3 (04:58→21:00)
[2019-11-17] MEDS: hydrALAZINE HCL 25 MG TABLET GT SCH ×3 (04:58→21:00)
[2019-11-17] MEDS: METOCLOPRAMIDE HCL 10 MG/10 ML UDC GT SCH ×3 (04:58→21:00)
[2019-11-17] MEDS: CLONIDINE HCL 0.1 MG TABLET GT SCH ×3 (04:58→21:00)
[2019-11-17] MEDS: BLOOD SUGAR DIAGNOSTIC 1 EACH STRIP IN SCH ×3 (05:22→18:09)
[2019-11-17] MEDS: NEPRO 1,000 ML BOTTLE GT PRN (05:22)
[2019-11-17] MEDS: INSULIN ASPART/LISPRO 100 UNIT/ML CARTRIDGE SQ PRN ×3 (05:23→18:11)
[2019-11-17 06:41] LABS: BASOPHILS # (AUTO) 0.1 /CMM (0.0-0.2); BASOPHILS % (AUTO) 0.8 % (0.0-2.0); EOSINOPHILS % (AUTO) 20.5 % (0.0-6.0); HEMATOCRIT 23 % (39-51); HEMOGLOBIN 7.8 g/dL (13.5-17.5); LYMPHOCYTES # (AUTO) 1.1 /CMM (0.8-4.8); LYMPHOCYTES % (AUTO) 9.8 % (20.0-44.0); MEAN CORPUSCULAR HGB CONC 33 g/dl (31.0-36.0); MEAN CORPUSCULAR VOLUME 89 fL (80-96); MONOCYTES % (AUTO) 8.5 % (2.0-12.0); NEUTROPHILS # (AUTO) 7.1 /CMM (1.8-8.9); NEUTROPHILS % (AUTO) 60.4 % (43.0-81.0); PLATELET COUNT (AUTO) 213 /CMM (150-450); RED BLOOD CELL COUNT(AUTO) 2.63 MIL/uL (4.5-6.0); WHITE BLOOD COUNT (AUTO) 11.7 K/uL (4.3-11.0)
[2019-11-17] MEDS: BISACODYL SUPP (10 MG) 10 MG/SUPP.RECT SUPP.RECT RC PRN (06:46)
[2019-11-17 07:07] LABS: CALCIUM, SERUM 9.3 mg/dL (8.5-10.1); CREATININE 2.4 mg/dL (0.6-1.3); MAGNESIUM 2.2 mg/dL (1.8-2.4); PHOSPHORUS 4.8 mg/dL (2.5-4.9)
[2019-11-17 07:42] VITALS: BP 147/55
[2019-11-17] MEDS: BACI/NEOM/POLY B OINT PKT 1 UDPKT PACKET TP SCH ×2 (09:00→21:00)
[2019-11-17] MEDS: AMLODIPINE BESYLATE 10 MG TABLET GT SCH (09:00)
[2019-11-17] MEDS: LORATADINE 10 MG TABLET GT SCH (09:00)
[2019-11-17] MEDS: ISOSORBIDE DINITRATE (20MG) 20 MG TABLET GT SCH ×3 (09:00→17:57)
[2019-11-17] MEDS: DOXAZOSIN MESYLATE (4 MG) 4 MG TABLET GT SCH ×2 (09:00→21:00)
[2019-11-17] MEDS: HYDROGEN PEROXIDE 480 ML BOTTLE TP SCH ×2 (09:00→21:14)
[2019-11-17] MEDS: INSULIN GLARGINE SQ SCH ×2 (09:00→21:00)
[2019-11-17] MEDS: IV D5W 1,000 ML IV PRN ×2 (09:00→20:18)
[2019-11-17] MEDS: BASAGLAR SQ SCH ×2 (09:00→21:00)
[2019-11-17] MEDS: FERROUS SULFATE UDC 300 MG/5 ML UDC GT SCH (09:00)
[2019-11-17] MEDS: LACTOBACILLUS RHAMNOSUS GG 1 EACH CAP.SPRINK GT SCH ×2 (09:00→17:57)
[2019-11-17] MEDS: FAMOTIDINE (20 MG) 20 MG TABLET GT SCH (09:00)
[2019-11-17] MEDS: LEVETIRACETAM SOL (5 ML) 100 MG/ML UDC GT SCH ×2 (09:00→21:00)
[2019-11-17] MEDS: MINOXIDIL (2.5MG) 2.5 MG TABLET GT SCH (09:00)
[2019-11-17] MEDS: CHLORHEXIDINE GLUCONATE 15 ML UDC MM SCH (09:00)
[2019-11-17] MEDS: MINERAL OIL/PETROL OINT 396 GM JAR TP SCH ×2 (09:00→21:00)
[2019-11-17] MEDS: SITAGLIPTIN PHOSPHATE 50 MG TABLET GT SCH (09:00)
[2019-11-17] MEDS: Z GUARD REMEDY 4 OZ OINT TP SCH ×2 (09:00→21:00)
[2019-11-17] MEDS: DOCUSATE SODIUM LIQ 100 MG/10 ML UDC GT SCH ×2 (09:00→21:00)
[2019-11-17] MEDS: VIT B CMPLX 3/FA/VIT C/BIOTIN 1 TAB TABLET GT SCH (09:00)
--- NOTE | 2019-11-17 10:13 | NUR ---
RT PT RECEIVED ON CURRENT VENT SETTINGS. TRACHED WITH PORTEX 7. VENT PLUGGED IN TO RED OUTLET. AMBU BAG AT HEAD OF BED. SPARE TRACH AT BEDSIDE. ALARMS ON AND AUDIBLE. NO RESPIRATORY DISTRESS. HEAD OF BED AT 30 DEGREES. WILL CONTINUE TO MONITOR.
[2019-11-17] MEDS: ACETAMINOPHEN 650 MG/20 ML UDC- SA PATIENTS-PAIN ONLY GT SCH (10:40)
[2019-11-17] MEDS ORDERED: NEPRO 1,000 ML BOTTLE GT PRN (12:07)
--- NOTE | 2019-11-17 12:32 | NUR ---
Clarified Nepro rate with oilfield plant and field operator Lupe. Received order to give Nepro at 55 mL/hr x 20 hours a day since pt does not have po meal intake anymore. Dr Treadwell aware.
--- NOTE | 2019-11-17 15:39 | NUR ---
Seen by MAYRA Hoang. Relayed lab results to her. No new order.
[2019-11-17 20:49] VITALS: BP 132/60
[2019-11-17] MEDS: SENNOSIDES 8.6 MG TABLET GT SCH (22:00)
[2019-11-18] MEDS: BLOOD SUGAR DIAGNOSTIC 1 EACH STRIP IN SCH ×4 (00:20→17:28)
[2019-11-18] MEDS: INSULIN ASPART/LISPRO 100 UNIT/ML CARTRIDGE SQ PRN ×4 (00:21→17:29)
[2019-11-18] MEDS: IPRATROPIUM NEB FS 0.5 MG/2.5 ML AMPUL.NEB NEB SCH ×4 (02:11→20:21)
[2019-11-18] MEDS: ALBUTEROL FS 2.5 MG/0.5 ML VIAL.NEB NEB SCH ×4 (02:11→20:21)
[2019-11-18] MEDS: METOCLOPRAMIDE HCL 10 MG/10 ML UDC GT SCH ×3 (05:15→20:36)
[2019-11-18] MEDS: hydrALAZINE HCL 25 MG TABLET GT SCH ×3 (05:15→20:35)
[2019-11-18] MEDS: CLONIDINE HCL 0.1 MG TABLET GT SCH ×3 (05:15→20:36)
[2019-11-18] MEDS: LABETALOL HCL 300 MG TABLET GT SCH ×3 (05:16→20:36)
[2019-11-18] MEDS: IV D5W 1,000 ML IV PRN ×2 (05:59→16:00)
[2019-11-18 06:52] LABS: BASOPHILS # (AUTO) 0.1 /CMM (0.0-0.2); BASOPHILS % (AUTO) 0.6 % (0.0-2.0); EOSINOPHILS % (AUTO) 23.2 % (0.0-6.0); HEMATOCRIT 23 % (39-51); HEMOGLOBIN 7.7 g/dL (13.5-17.5); LYMPHOCYTES % (AUTO) 9.2 % (20.0-44.0); MEAN CORPUSCULAR HGB CONC 33 g/dl (31.0-36.0); MEAN CORPUSCULAR VOLUME 89 fL (80-96); MONOCYTES # (AUTO) 0.9 /CMM (0.1-1.30); MONOCYTES % (AUTO) 8.1 % (2.0-12.0); NEUTROPHILS # (AUTO) 6.3 /CMM (1.8-8.9); NEUTROPHILS % (AUTO) 58.9 % (43.0-81.0); PLATELET COUNT (AUTO) 197 /CMM (150-450); RED BLOOD CELL COUNT(AUTO) 2.61 MIL/uL (4.5-6.0); WHITE BLOOD COUNT (AUTO) 10.7 K/uL (4.3-11.0)
[2019-11-18 07:09] LABS: CALCIUM, SERUM 9.3 mg/dL (8.5-10.1); CREATININE 2.4 mg/dL (0.6-1.3); MAGNESIUM 2.2 mg/dL (1.8-2.4); PHOSPHORUS 4.7 mg/dL (2.5-4.9); POTASSIUM 4.2 mmol/L (3.5-5.1)
[2019-11-18 07:40] VITALS: BP 155/58
[2019-11-18] MEDS: Z GUARD REMEDY 4 OZ OINT TP SCH ×2 (09:00→20:37)
[2019-11-18] MEDS: MINERAL OIL/PETROL OINT 396 GM JAR TP SCH ×2 (09:00→20:37)
[2019-11-18] MEDS: BACI/NEOM/POLY B OINT PKT 1 UDPKT PACKET TP SCH ×2 (09:00→20:37)
[2019-11-18] MEDS: HYDROGEN PEROXIDE 480 ML BOTTLE TP SCH ×2 (09:00→21:54)
[2019-11-18] MEDS: DOXAZOSIN MESYLATE (4 MG) 4 MG TABLET GT SCH ×2 (09:49→20:35)
[2019-11-18] MEDS: FERROUS SULFATE UDC 300 MG/5 ML UDC GT SCH (09:49)
[2019-11-18] MEDS: LACTOBACILLUS RHAMNOSUS GG 1 EACH CAP.SPRINK GT SCH ×2 (09:49→17:27)
[2019-11-18] MEDS: LORATADINE 10 MG TABLET GT SCH (09:49)
[2019-11-18] MEDS: DOCUSATE SODIUM LIQ 100 MG/10 ML UDC GT SCH ×2 (09:49→20:36)
[2019-11-18] MEDS: BASAGLAR SQ SCH ×2 (09:50→20:37)
[2019-11-18] MEDS: ACETAMINOPHEN 650 MG/20 ML UDC- SA PATIENTS-PAIN ONLY GT SCH (09:50)
[2019-11-18] MEDS: ISOSORBIDE DINITRATE (20MG) 20 MG TABLET GT SCH ×3 (09:50→17:28)
[2019-11-18] MEDS: FAMOTIDINE (20 MG) 20 MG TABLET GT SCH (09:50)
[2019-11-18] MEDS: SITAGLIPTIN PHOSPHATE 50 MG TABLET GT SCH (09:50)
[2019-11-18] MEDS: LEVETIRACETAM SOL (5 ML) 100 MG/ML UDC GT SCH ×2 (09:50→20:36)
[2019-11-18] MEDS: MINOXIDIL (2.5MG) 2.5 MG TABLET GT SCH (09:50)
[2019-11-18] MEDS: VIT B CMPLX 3/FA/VIT C/BIOTIN 1 TAB TABLET GT SCH (09:50)
[2019-11-18] MEDS: INSULIN GLARGINE SQ SCH ×2 (09:50→20:37)
[2019-11-18] MEDS: CHLORHEXIDINE GLUCONATE 15 ML UDC MM SCH (09:50)
[2019-11-18] MEDS: AMLODIPINE BESYLATE 10 MG TABLET GT SCH (09:50)
--- NOTE | 2019-11-18 13:33 | NUR ---
During IDT, Dr. Braun said that before patient could eat by mouth he needs to be off the ventilator first. Resident informed.
--- NOTE | 2019-11-18 14:42 | NUR ---
INTERDISCIPLINARY PLAN OF CARE CONFERENCE was held today. The patients responsible republican/ Keith Klein and Millie Latoya [phone] were not able to attend or participate via phone conference. Charge nurse discussed Antibiotic Tx for Pneumonia; RNA order;& BP medication to be reviewed by Dr. Treadwell. Dr. Braun and Interdisciplinary team discussed the plan of care in detail. Current orders as well as treatments and medications were reviewed. Please see other disciplines IDT notes for further details.
--- NOTE | 2019-11-18 16:15 | NUR ---
JOELLE received a call from Cynthia [phone] calling on behalf of [facility] stating that the the pt. will require a "home visit" by [facility] so that the request for Manual Jzyb-Cu-Kaalk Wheel Chair can be approved. JOELLE informed Stephanie that the pt. can be assessed by [facility] at their earliest convenience as the pt. requires a wheelchair. Stephanie expressed understanding and stated that one of their representatives will call [facility] to set up "Home Visit". Noted. JOELLE informed charge nurse.
[2019-11-18] MEDS: NEPRO 1,000 ML BOTTLE GT PRN (18:47)
--- NOTE | 2019-11-18 21:59 | NUR ---
PT RECEIVE STABLE ON MV, SETTINGS ARE SIMV 4 PS 15 +5 AT 35% FIO2, TRACH PATENT AND SECURED, SPARE TRACH AND AMBU BAG IS AT BEDSIDE, ALARMS ARE ON AND AUDIBLE, VENT IS PLUG IN RED OUTLET, WILL CONTINUE TO MONITOR Addendum: 11/18/19 at 2159 by GILBERT ROGERS RT Amended: Links added.
[2019-11-18] MEDS: SENNOSIDES 8.6 MG TABLET GT SCH (22:39)
[2019-11-19] MEDS: BLOOD SUGAR DIAGNOSTIC 1 EACH STRIP IN SCH ×4 (00:42→17:28)
[2019-11-19] MEDS: INSULIN ASPART/LISPRO 100 UNIT/ML CARTRIDGE SQ PRN ×4 (00:44→17:29)
[2019-11-19] MEDS: ALBUTEROL FS 2.5 MG/0.5 ML VIAL.NEB NEB SCH ×4 (00:51→19:34)
[2019-11-19] MEDS: IPRATROPIUM NEB FS 0.5 MG/2.5 ML AMPUL.NEB NEB SCH ×4 (00:51→19:34)
[2019-11-19] MEDS: IV D5W 1,000 ML IV PRN (02:30)
[2019-11-19 03:53] VITALS: BP 130/63
[2019-11-19] MEDS: hydrALAZINE HCL 25 MG TABLET GT SCH ×3 (05:13→20:57)
[2019-11-19] MEDS: CLONIDINE HCL 0.1 MG TABLET GT SCH ×3 (05:13→20:57)
[2019-11-19] MEDS: METOCLOPRAMIDE HCL 10 MG/10 ML UDC GT SCH ×3 (05:13→20:58)
[2019-11-19] MEDS: LABETALOL HCL 300 MG TABLET GT SCH ×3 (05:14→20:58)
[2019-11-19 08:25] VITALS: BP 128/62
[2019-11-19] MEDS: BACI/NEOM/POLY B OINT PKT 1 UDPKT PACKET TP SCH ×2 (09:00→20:58)
[2019-11-19] MEDS: MINERAL OIL/PETROL OINT 396 GM JAR TP SCH ×2 (09:00→20:58)
[2019-11-19] MEDS: HYDROGEN PEROXIDE 480 ML BOTTLE TP SCH ×2 (09:00→20:53)
[2019-11-19] MEDS: Z GUARD REMEDY 4 OZ OINT TP SCH ×2 (09:00→20:58)
[2019-11-19] MEDS: AMLODIPINE BESYLATE 10 MG TABLET GT SCH (09:17)
[2019-11-19] MEDS: LORATADINE 10 MG TABLET GT SCH (09:17)
[2019-11-19] MEDS: ISOSORBIDE DINITRATE (20MG) 20 MG TABLET GT SCH ×3 (09:17→17:28)
[2019-11-19] MEDS: DOXAZOSIN MESYLATE (4 MG) 4 MG TABLET GT SCH ×2 (09:17→20:57)
[2019-11-19] MEDS: VIT B CMPLX 3/FA/VIT C/BIOTIN 1 TAB TABLET GT SCH (09:17)
[2019-11-19] MEDS: FAMOTIDINE (20 MG) 20 MG TABLET GT SCH (09:17)
[2019-11-19] MEDS: FERROUS SULFATE UDC 300 MG/5 ML UDC GT SCH (09:17)
[2019-11-19] MEDS: LEVETIRACETAM SOL (5 ML) 100 MG/ML UDC GT SCH ×2 (09:17→20:57)
[2019-11-19] MEDS: SITAGLIPTIN PHOSPHATE 50 MG TABLET GT SCH (09:17)
[2019-11-19] MEDS: MINOXIDIL (2.5MG) 2.5 MG TABLET GT SCH (09:17)
[2019-11-19] MEDS: DOCUSATE SODIUM LIQ 100 MG/10 ML UDC GT SCH ×2 (09:17→20:57)
[2019-11-19] MEDS: LACTOBACILLUS RHAMNOSUS GG 1 EACH CAP.SPRINK GT SCH ×2 (09:17→17:28)
[2019-11-19] MEDS: BASAGLAR SQ SCH ×2 (09:18→21:26)
[2019-11-19] MEDS: ACETAMINOPHEN 650 MG/20 ML UDC- SA PATIENTS-PAIN ONLY GT SCH (09:18)
[2019-11-19] MEDS: INSULIN GLARGINE SQ SCH ×2 (09:18→21:26)
[2019-11-19] MEDS: CHLORHEXIDINE GLUCONATE 15 ML UDC MM SCH (09:18)
--- NOTE | 2019-11-19 13:35 | NUR ---
Reported BMP result to Dr. Tracy Day and informed that patient is edematous. Dr. Tracy Day reviewed recent labs with order to DC IVF and repeat BMP on Thursday. Requested Dr. Day to review current hypertensive medications because despite current B/P medications, patient's B/P remains high. She said to have Dr. Valles or Dr. Treadwell review patient's BP medication, Dr. Day discontinued Norvasc and changed it to Nifedipine. Endorsed to follow-up on Thursday with respective MD. Order carried out. Resident's family, Mr. Mustafa updated of patient's condition and most recent orders.
[2019-11-19] MEDS: NEPRO 1,000 ML BOTTLE GT PRN (17:32)
[2019-11-19 20:52] VITALS: BP 138/64
--- NOTE | 2019-11-19 20:58 | NUR ---
PT RECEIVE STABLE ON MV, SETTINGS ARE SIMV 4 PS 15 +5 AT 35% FIO2, TRACH PATENT AND SECURED, SPARE TRACH AND AMBU BAG IS AT BEDSIDE, ALARMS ARE ON AND AUDIBLE, VENT IS PLUG IN RED OUTLET, WILL CONTINUE TO MONITOR Addendum: 11/19/19 at 2058 by GILBERT ROGERS RT Amended: Links added.
--- NOTE | 2019-11-19 21:00 | NUR ---
AIRLINE DISPATCHER note Nifedifine 60 mg for HTN, given via GT as per MD order. BP 138/64, HR 80.
[2019-11-19] MEDS: SENNOSIDES 8.6 MG TABLET GT SCH (21:03)
[2019-11-20] MEDS: BLOOD SUGAR DIAGNOSTIC 1 EACH STRIP IN SCH ×4 (00:07→17:48)
[2019-11-20] MEDS: INSULIN ASPART/LISPRO 100 UNIT/ML CARTRIDGE SQ PRN ×4 (00:08→17:48)
[2019-11-20] MEDS: ALBUTEROL FS 2.5 MG/0.5 ML VIAL.NEB NEB SCH ×4 (01:32→19:59)
[2019-11-20] MEDS: IPRATROPIUM NEB FS 0.5 MG/2.5 ML AMPUL.NEB NEB SCH ×4 (01:32→19:59)
[2019-11-20] MEDS: METOCLOPRAMIDE HCL 10 MG/10 ML UDC GT SCH ×3 (05:10→20:20)
[2019-11-20] MEDS: hydrALAZINE HCL 25 MG TABLET GT SCH ×3 (05:10→20:18)
[2019-11-20] MEDS: CLONIDINE HCL 0.1 MG TABLET GT SCH ×3 (05:10→20:18)
[2019-11-20] MEDS: LABETALOL HCL 300 MG TABLET GT SCH ×3 (05:11→20:22)
[2019-11-20 07:48] VITALS: BP 161/73
--- NOTE | 2019-11-20 08:21 | NUR ---
RT PT RECEIVED TRACH'D ON [facility] VENT WITH SETTINGS PER MD ORDER. BIODIESEL PROCESS CONTROL TECHNICIAN DONE. VENT PLUGGED INTO RED OUTLET. SPARE TRACH AND AMBU BAG AT HEAD OF BED. ALARMS ON AND FUNCTIONING PROPERLY. TX'S GIVEN ORDERED. NO ADVERSE REACTIONS OBSERVED. SUCTIONED AND MONITORED PRN. NO SOB OR SIGNS OF DISTRESS NOTED. TRACH CARE DONE. Addendum: 11/20/19 at 1754 by RAYMUNDO DICKERSON RT Amended: Links added.
[2019-11-20] MEDS: HYDROGEN PEROXIDE 480 ML BOTTLE TP SCH ×2 (08:34→21:00)
[2019-11-20] MEDS: SITAGLIPTIN PHOSPHATE 50 MG TABLET GT SCH (09:00)
[2019-11-20] MEDS: MINOXIDIL (2.5MG) 2.5 MG TABLET GT SCH (09:00)
[2019-11-20] MEDS: LEVETIRACETAM SOL (5 ML) 100 MG/ML UDC GT SCH ×2 (09:00→20:20)
[2019-11-20] MEDS: ACETAMINOPHEN 650 MG/20 ML UDC- SA PATIENTS-PAIN ONLY GT SCH (09:00)
[2019-11-20] MEDS: Z GUARD REMEDY 4 OZ OINT TP SCH ×2 (09:00→20:30)
[2019-11-20] MEDS: INSULIN GLARGINE SQ SCH ×2 (09:00→21:38)
[2019-11-20] MEDS: MINERAL OIL/PETROL OINT 396 GM JAR TP SCH ×2 (09:00→20:30)
[2019-11-20] MEDS: BACI/NEOM/POLY B OINT PKT 1 UDPKT PACKET TP SCH ×2 (09:00→20:30)
[2019-11-20] MEDS: FAMOTIDINE (20 MG) 20 MG TABLET GT SCH (09:00)
[2019-11-20] MEDS: BASAGLAR SQ SCH ×2 (09:00→21:38)
[2019-11-20] MEDS: LACTOBACILLUS RHAMNOSUS GG 1 EACH CAP.SPRINK GT SCH ×2 (09:00→17:40)
[2019-11-20] MEDS: DOCUSATE SODIUM LIQ 100 MG/10 ML UDC GT SCH ×2 (09:00→20:20)
[2019-11-20] MEDS: LORATADINE 10 MG TABLET GT SCH (09:00)
[2019-11-20] MEDS: FERROUS SULFATE UDC 300 MG/5 ML UDC GT SCH (09:00)
[2019-11-20] MEDS: CHLORHEXIDINE GLUCONATE 15 ML UDC MM SCH (09:00)
[2019-11-20] MEDS: DOXAZOSIN MESYLATE (4 MG) 4 MG TABLET GT SCH ×2 (09:00→20:19)
[2019-11-20] MEDS: ISOSORBIDE DINITRATE (20MG) 20 MG TABLET GT SCH ×3 (09:00→17:45)
[2019-11-20] MEDS: VIT B CMPLX 3/FA/VIT C/BIOTIN 1 TAB TABLET GT SCH (09:00)
[2019-11-20] MEDS: NIFEdipine (10MG) 10 MG CAPSULE PO SCH ×2 (09:06→20:30)
[2019-11-20] MEDS: NEPRO 1,000 ML BOTTLE GT PRN (15:44)
[2019-11-20 20:36] VITALS: BP 126/61
[2019-11-20] MEDS: SENNOSIDES 8.6 MG TABLET GT SCH (21:48)
--- NOTE | 2019-11-20 22:07 | NUR ---
PT RECEIVE STABLE ON MV, SETTINGS ARE SIMV 4 PS 15 +5 AT 35% FIO2, TRACH PATENT AND SECURED, SPARE TRACH AND AMBU BAG IS AT BEDSIDE, ALARMS ARE ON AND AUDIBLE, VENT IS PLUG IN RED OUTLET, WILL CONTINUE TO MONITOR Addendum: 11/20/19 at 2207 by GILBERT ROGERS RT Amended: Links added.
[2019-11-21] MEDS: BLOOD SUGAR DIAGNOSTIC 1 EACH STRIP IN SCH ×4 (00:40→18:02)
[2019-11-21] MEDS: INSULIN ASPART/LISPRO 100 UNIT/ML CARTRIDGE SQ PRN ×3 (00:41→18:04)
[2019-11-21] MEDS: IPRATROPIUM NEB FS 0.5 MG/2.5 ML AMPUL.NEB NEB SCH ×4 (01:27→19:50)
[2019-11-21] MEDS: ALBUTEROL FS 2.5 MG/0.5 ML VIAL.NEB NEB SCH ×4 (01:27→19:50)
[2019-11-21] MEDS: CLONIDINE HCL 0.1 MG TABLET GT SCH ×3 (05:52→21:01)
[2019-11-21] MEDS: hydrALAZINE HCL 25 MG TABLET GT SCH ×3 (05:52→21:00)
[2019-11-21] MEDS: METOCLOPRAMIDE HCL 10 MG/10 ML UDC GT SCH ×3 (05:53→21:02)
[2019-11-21] MEDS: LABETALOL HCL 300 MG TABLET GT SCH ×3 (05:54→21:03)
[2019-11-21] MEDS: NEPRO 1,000 ML BOTTLE GT PRN (06:05)
[2019-11-21 07:19] LABS: CALCIUM, SERUM 9.4 mg/dL (8.5-10.1); CREATININE 2.9 mg/dL (0.6-1.3); POTASSIUM 4.4 mmol/L (3.5-5.1)
[2019-11-21 07:48] VITALS: BP 158/81
[2019-11-21] MEDS: HYDROGEN PEROXIDE 480 ML BOTTLE TP SCH ×2 (07:54→19:50)
[2019-11-21] MEDS: MINOXIDIL (2.5MG) 2.5 MG TABLET GT SCH ×2 (09:55→17:00)
[2019-11-21] MEDS: FERROUS SULFATE UDC 300 MG/5 ML UDC GT SCH (09:55)
[2019-11-21] MEDS: VIT B CMPLX 3/FA/VIT C/BIOTIN 1 TAB TABLET GT SCH (09:55)
[2019-11-21] MEDS: DOCUSATE SODIUM LIQ 100 MG/10 ML UDC GT SCH ×2 (09:55→21:02)
[2019-11-21] MEDS: LEVETIRACETAM SOL (5 ML) 100 MG/ML UDC GT SCH ×2 (09:55→21:02)
[2019-11-21] MEDS: LORATADINE 10 MG TABLET GT SCH (09:55)
[2019-11-21] MEDS: DOXAZOSIN MESYLATE (4 MG) 4 MG TABLET GT SCH ×2 (09:55→21:00)
[2019-11-21] MEDS: LACTOBACILLUS RHAMNOSUS GG 1 EACH CAP.SPRINK GT SCH ×2 (09:55→17:58)
[2019-11-21] MEDS: SITAGLIPTIN PHOSPHATE 50 MG TABLET GT SCH (09:55)
[2019-11-21] MEDS: ISOSORBIDE DINITRATE (20MG) 20 MG TABLET GT SCH ×3 (09:55→17:59)
[2019-11-21] MEDS: FAMOTIDINE (20 MG) 20 MG TABLET GT SCH (09:56)
[2019-11-21] MEDS: CHLORHEXIDINE GLUCONATE 15 ML UDC MM SCH (09:56)
[2019-11-21] MEDS: NIFEdipine (10MG) 10 MG CAPSULE PO SCH (09:56)
[2019-11-21] MEDS: ACETAMINOPHEN 650 MG/20 ML UDC- SA PATIENTS-PAIN ONLY GT SCH (09:56)
[2019-11-21] MEDS: MINERAL OIL/PETROL OINT 396 GM JAR TP SCH ×2 (09:57→21:04)
[2019-11-21] MEDS: Z GUARD REMEDY 4 OZ OINT TP SCH ×2 (09:57→21:04)
[2019-11-21] MEDS: BASAGLAR SQ SCH ×2 (09:57→21:04)
[2019-11-21] MEDS: INSULIN GLARGINE SQ SCH ×2 (09:57→21:04)
[2019-11-21] MEDS: BACI/NEOM/POLY B OINT PKT 1 UDPKT PACKET TP SCH ×2 (09:57→21:04)
--- NOTE | 2019-11-21 10:35 | NUR ---
Called [facility] to re-order Retacrit. Spoke with pharmacist Betty. She said they will process the order and the earliest they can get the Retacrit delivered is on Thursday (11/25/19).
[2019-11-21] MEDS ORDERED: NIFEdipine (10MG) 10 MG CAPSULE GT SCH ×2 (15:07→21:00)
--- NOTE | 2019-11-21 15:10 | NUR ---
Requested Dr Valles to review pt's BP medications since pt's BP is still mostly high. Dr Valles said he will review them. He ordered to increase Minoxidil from 10 mg GT daily to 7.5 GT BID.
--- NOTE | 2019-11-21 17:00 | NUR ---
Called Dr Valles's office to ask him if he wanted to change Nifedipine to another anti-hypertensive medication since Nifedipine capsules cannot be crushed and there is no available form of Nifedipine that can be given via G-tube (spoke with [facility] pharmacist and [facility] pharmacist). Also informed BRAKE REPAIRER [employer]ILRO[employer] Lidia Hoang who said to refer to primary MD first and if there primary MD does not give any orders, she will review it.
--- NOTE | 2019-11-21 18:40 | NUR ---
Paged Dr Valles again. Informed him that Nifedipine does not have a form that can be given via G-tube. Received order to DC Nifedipine and give Amlodipine 10 mg GT daily.
--- NOTE | 2019-11-21 19:50 | NUR ---
RT NOTE: RECEIVED TRACH PT ON [facility] VENT ON NOTED SETTINGS PER MD ORDERS. TRACH IS PATENT AND SECURED. TRACH CARE DONE. MOLDER PIPE COVERING DONE. Q6 BREATHING TX GIVEN WITH NO ADVERSE REACTION NOTED. SX DONE PRN. VENT PLUGGED INTO RED OUTLET. ALARMS ON AND AUDIBLE. RANDU BAG @ BEDSIDE. NO RESP DISTRESS AT THIS TIME. WILL CONT TO MONITOR PT. Addendum: 11/21/19 at 2007 by GATO MICHELE RT Amended: Links added.
[2019-11-21 20:46] VITALS: BP 121/68
[2019-11-21] MEDS: SENNOSIDES 8.6 MG TABLET GT SCH (22:00)
[2019-11-22] MEDS: BLOOD SUGAR DIAGNOSTIC 1 EACH STRIP IN SCH ×4 (00:48→17:48)
[2019-11-22] MEDS: INSULIN ASPART/LISPRO 100 UNIT/ML CARTRIDGE SQ PRN ×3 (00:49→17:49)
[2019-11-22] MEDS: IPRATROPIUM NEB FS 0.5 MG/2.5 ML AMPUL.NEB NEB SCH ×4 (02:00→19:41)
[2019-11-22] MEDS: ALBUTEROL FS 2.5 MG/0.5 ML VIAL.NEB NEB SCH ×4 (02:00→19:41)
[2019-11-22] MEDS: hydrALAZINE HCL 25 MG TABLET GT SCH ×3 (05:12→21:26)
[2019-11-22] MEDS: CLONIDINE HCL 0.1 MG TABLET GT SCH ×3 (05:12→21:26)
[2019-11-22] MEDS: METOCLOPRAMIDE HCL 10 MG/10 ML UDC GT SCH ×3 (05:13→21:26)
[2019-11-22] MEDS: LABETALOL HCL 300 MG TABLET GT SCH ×3 (05:13→21:27)
[2019-11-22] MEDS: NEPRO 1,000 ML BOTTLE GT PRN (05:55)
[2019-11-22 07:36] VITALS: BP 148/58
[2019-11-22] MEDS: HYDROGEN PEROXIDE 480 ML BOTTLE TP SCH ×2 (08:19→21:00)
[2019-11-22] MEDS: FERROUS SULFATE UDC 300 MG/5 ML UDC GT SCH (09:54)
[2019-11-22] MEDS: LEVETIRACETAM SOL (5 ML) 100 MG/ML UDC GT SCH ×2 (09:54→21:26)
[2019-11-22] MEDS: FAMOTIDINE (20 MG) 20 MG TABLET GT SCH (09:54)
[2019-11-22] MEDS: AMLODIPINE BESYLATE 10 MG TABLET GT SCH (09:54)
[2019-11-22] MEDS: DOXAZOSIN MESYLATE (4 MG) 4 MG TABLET GT SCH ×2 (09:54→21:26)
[2019-11-22] MEDS: LACTOBACILLUS RHAMNOSUS GG 1 EACH CAP.SPRINK GT SCH ×2 (09:54→17:15)
[2019-11-22] MEDS: DOCUSATE SODIUM LIQ 100 MG/10 ML UDC GT SCH ×2 (09:54→21:26)
[2019-11-22] MEDS: ISOSORBIDE DINITRATE (20MG) 20 MG TABLET GT SCH ×3 (09:54→17:16)
[2019-11-22] MEDS: LORATADINE 10 MG TABLET GT SCH (09:54)
[2019-11-22] MEDS: SITAGLIPTIN PHOSPHATE 50 MG TABLET GT SCH (09:54)
[2019-11-22] MEDS: MINOXIDIL (2.5MG) 2.5 MG TABLET GT SCH ×2 (09:54→17:16)
[2019-11-22] MEDS: VIT B CMPLX 3/FA/VIT C/BIOTIN 1 TAB TABLET GT SCH (09:54)
[2019-11-22] MEDS: CHLORHEXIDINE GLUCONATE 15 ML UDC MM SCH (09:55)
[2019-11-22] MEDS: BACI/NEOM/POLY B OINT PKT 1 UDPKT PACKET TP SCH ×2 (09:55→21:27)
[2019-11-22] MEDS: MINERAL OIL/PETROL OINT 396 GM JAR TP SCH ×2 (09:55→21:27)
[2019-11-22] MEDS: ACETAMINOPHEN 650 MG/20 ML UDC- SA PATIENTS-PAIN ONLY GT SCH (09:55)
[2019-11-22] MEDS: Z GUARD REMEDY 4 OZ OINT TP SCH ×2 (09:55→21:27)
[2019-11-22] MEDS: INSULIN GLARGINE SQ SCH ×2 (09:57→21:59)
[2019-11-22] MEDS: BASAGLAR SQ SCH ×2 (09:57→21:59)
--- NOTE | 2019-11-22 11:26 | NUR ---
RT PT RECEIVED TRACH'D ON [facility] VENT WITH SETTINGS PER MD ORDER. JUNIOR LINUX ADMINISTRATOR DONE. VENT PLUGGED INTO RED OUTLET. SPARE TRACH AND AMBU BAG AT HEAD OF BED. ALARMS ON AND WORKING PROPERLY. BREATHING TX'S GIVEN ORDERED. NO ADVERSE REACTIONS OBSERVED. SUCTIONED AND MONITORED PRN. NO SIGNS OF DISTRESS NOTED. TRACH CARE DONE. Addendum: 11/22/19 at 1247 by RAYMUNDO DICKERSON RT Amended: Links added.
--- NOTE | 2019-11-22 11:30 | NUR ---
Seen and examined by Dr. Braun, reported that patient's recent BUN is higher than the previous result (11/21/19 - 66mg.dl, 11/18 -56mg/dl) patient's IVF discontinue on 11/19. New order given for BMP on and to change vent setting to CPAP, PSV 12, Peep 5 on 11/24. RT notified. Endorsed.
--- NOTE | 2019-11-22 19:41 | NUR ---
RT PT RECEIVED ON CURRENT SETTINGS. TRACHED WITH PORTEX 7. VENT PLUGGED IN TO RED OUTLET. ALARMS ON AND AUDIBLE. SPARE TRACH AT BEDSIDE. AMBU BAG AT HEAD OF BED. NO RESPIRATORY DISTRESS. WILL CONTINUE TO MONITOR. Addendum: 11/22/19 at 2326 by MEHDI HAUSER RT Amended: Links added.
[2019-11-22 20:17] VITALS: BP 149/64
[2019-11-22] MEDS: SENNOSIDES 8.6 MG TABLET GT SCH (21:27)
[2019-11-23] MEDS: BLOOD SUGAR DIAGNOSTIC 1 EACH STRIP IN SCH ×5 (00:01→23:25)
[2019-11-23] MEDS: INSULIN ASPART/LISPRO 100 UNIT/ML CARTRIDGE SQ PRN ×5 (00:02→23:26)
[2019-11-23] MEDS: IPRATROPIUM NEB FS 0.5 MG/2.5 ML AMPUL.NEB NEB SCH ×4 (00:58→19:36)
[2019-11-23] MEDS: ALBUTEROL FS 2.5 MG/0.5 ML VIAL.NEB NEB SCH ×4 (00:58→19:36)
[2019-11-23] MEDS: CLONIDINE HCL 0.1 MG TABLET GT SCH ×3 (04:58→21:29)
[2019-11-23] MEDS: METOCLOPRAMIDE HCL 10 MG/10 ML UDC GT SCH ×3 (04:58→21:29)
[2019-11-23] MEDS: hydrALAZINE HCL 25 MG TABLET GT SCH ×3 (04:58→21:28)
[2019-11-23] MEDS: LABETALOL HCL 300 MG TABLET GT SCH ×3 (04:58→21:29)
[2019-11-23] MEDS: BISACODYL SUPP (10 MG) 10 MG/SUPP.RECT SUPP.RECT RC PRN (06:59)
[2019-11-23 07:29] VITALS: BP 138/71
[2019-11-23] MEDS: HYDROGEN PEROXIDE 480 ML BOTTLE TP SCH ×2 (08:09→20:17)
[2019-11-23] MEDS: ISOSORBIDE DINITRATE (20MG) 20 MG TABLET GT SCH ×3 (09:00→17:25)
[2019-11-23] MEDS: LORATADINE 10 MG TABLET GT SCH (09:00)
[2019-11-23] MEDS: LACTOBACILLUS RHAMNOSUS GG 1 EACH CAP.SPRINK GT SCH ×2 (09:00→17:24)
[2019-11-23] MEDS: DOXAZOSIN MESYLATE (4 MG) 4 MG TABLET GT SCH ×2 (09:00→21:29)
[2019-11-23] MEDS: DOCUSATE SODIUM LIQ 100 MG/10 ML UDC GT SCH ×2 (09:00→21:29)
[2019-11-23] MEDS: BASAGLAR SQ SCH ×2 (09:00→21:30)
[2019-11-23] MEDS: MINERAL OIL/PETROL OINT 396 GM JAR TP SCH ×2 (09:00→21:30)
[2019-11-23] MEDS: ACETAMINOPHEN 650 MG/20 ML UDC- SA PATIENTS-PAIN ONLY GT SCH (09:00)
[2019-11-23] MEDS: INSULIN GLARGINE SQ SCH ×2 (09:00→21:30)
[2019-11-23] MEDS: LEVETIRACETAM SOL (5 ML) 100 MG/ML UDC GT SCH ×2 (09:00→21:29)
[2019-11-23] MEDS: FERROUS SULFATE UDC 300 MG/5 ML UDC GT SCH (09:00)
[2019-11-23] MEDS: AMLODIPINE BESYLATE 10 MG TABLET GT SCH (09:00)
[2019-11-23] MEDS: BACI/NEOM/POLY B OINT PKT 1 UDPKT PACKET TP SCH ×2 (09:00→21:30)
[2019-11-23] MEDS: Z GUARD REMEDY 4 OZ OINT TP SCH ×2 (09:00→21:30)
[2019-11-23] MEDS: MINOXIDIL (2.5MG) 2.5 MG TABLET GT SCH ×2 (09:00→17:26)
[2019-11-23] MEDS: SITAGLIPTIN PHOSPHATE 50 MG TABLET GT SCH (09:00)
[2019-11-23] MEDS: CHLORHEXIDINE GLUCONATE 15 ML UDC MM SCH (09:00)
[2019-11-23] MEDS: FAMOTIDINE (20 MG) 20 MG TABLET GT SCH (09:00)
[2019-11-23] MEDS: VIT B CMPLX 3/FA/VIT C/BIOTIN 1 TAB TABLET GT SCH (09:00)
[2019-11-23] MEDS: RETACRIT 10,000 UNITS SQ SCH (11:00)
--- NOTE | 2019-11-23 14:52 | NUR ---
RT NOTES RECEIVED PATIENT ON VENT WITH ORDERED SETTINGS. TRACH TUBE IN PLACE, PATENT, AND SECURED WITH TRACH TIE. ALARMS ON AND AUDIBLE. VENT PLUGGED IN TO THE RED OUTLET. AMBU BAG AND BACK UP TRACH BY THE BEDSIDE. NO DISTRESS AT THIS TIME. Addendum: 11/23/19 at 1453 by LORI LOERA RT Amended: Links added.
--- NOTE | 2019-11-23 19:36 | NUR ---
RT pt received on current settings. trached with portex 7. vent plugged in to red outlet. alarms on and audible. ambu bag at head of bed. spare trach at bedside. no respiratory distress. will continue to monitor. Addendum: 11/24/19 at 0237 by MEHDI HAUSER RT Amended: Links added.
[2019-11-23 20:05] VITALS: BP 117/50
[2019-11-23] MEDS: SENNOSIDES 8.6 MG TABLET GT SCH (21:30)
[2019-11-23] MEDS: NEPRO 1,000 ML BOTTLE GT PRN (23:26)
[2019-11-24] MEDS: IPRATROPIUM NEB FS 0.5 MG/2.5 ML AMPUL.NEB NEB SCH ×4 (01:07→19:50)
[2019-11-24] MEDS: ALBUTEROL FS 2.5 MG/0.5 ML VIAL.NEB NEB SCH ×4 (01:07→19:50)
[2019-11-24] MEDS: hydrALAZINE HCL 25 MG TABLET GT SCH ×3 (04:53→20:50)
[2019-11-24] MEDS: LABETALOL HCL 300 MG TABLET GT SCH ×3 (04:54→20:51)
[2019-11-24] MEDS: CLONIDINE HCL 0.1 MG TABLET GT SCH ×3 (04:54→20:50)
[2019-11-24] MEDS: METOCLOPRAMIDE HCL 10 MG/10 ML UDC GT SCH ×3 (04:54→20:50)
[2019-11-24] MEDS: BLOOD SUGAR DIAGNOSTIC 1 EACH STRIP IN SCH ×3 (05:55→17:40)
[2019-11-24] MEDS: INSULIN ASPART/LISPRO 100 UNIT/ML CARTRIDGE SQ PRN ×3 (05:57→17:42)
[2019-11-24 07:29] VITALS: BP 118/53
[2019-11-24 07:33] LABS: CALCIUM, SERUM 9.6 mg/dL (8.5-10.1); CREATININE 2.9 mg/dL (0.6-1.3); POTASSIUM 4.4 mmol/L (3.5-5.1)
[2019-11-24] MEDS: HYDROGEN PEROXIDE 480 ML BOTTLE TP SCH ×2 (08:26→19:50)
[2019-11-24] MEDS: Z GUARD REMEDY 4 OZ OINT TP SCH ×2 (09:00→20:52)
[2019-11-24] MEDS: MINERAL OIL/PETROL OINT 396 GM JAR TP SCH ×2 (09:00→20:52)
[2019-11-24] MEDS: BACI/NEOM/POLY B OINT PKT 1 UDPKT PACKET TP SCH ×2 (09:00→20:52)
[2019-11-24] MEDS: FERROUS SULFATE UDC 300 MG/5 ML UDC GT SCH (09:31)
[2019-11-24] MEDS: SITAGLIPTIN PHOSPHATE 50 MG TABLET GT SCH (09:31)
[2019-11-24] MEDS: DOCUSATE SODIUM LIQ 100 MG/10 ML UDC GT SCH ×2 (09:31→20:50)
[2019-11-24] MEDS: LACTOBACILLUS RHAMNOSUS GG 1 EACH CAP.SPRINK GT SCH ×2 (09:31→17:00)
[2019-11-24] MEDS: VIT B CMPLX 3/FA/VIT C/BIOTIN 1 TAB TABLET GT SCH (09:31)
[2019-11-24] MEDS: DOXAZOSIN MESYLATE (4 MG) 4 MG TABLET GT SCH ×2 (09:31→20:50)
[2019-11-24] MEDS: FAMOTIDINE (20 MG) 20 MG TABLET GT SCH (09:31)
[2019-11-24] MEDS: LEVETIRACETAM SOL (5 ML) 100 MG/ML UDC GT SCH ×2 (09:31→20:50)
[2019-11-24] MEDS: AMLODIPINE BESYLATE 10 MG TABLET GT SCH (09:31)
[2019-11-24] MEDS: ISOSORBIDE DINITRATE (20MG) 20 MG TABLET GT SCH ×3 (09:31→17:40)
[2019-11-24] MEDS: LORATADINE 10 MG TABLET GT SCH (09:31)
[2019-11-24] MEDS: MINOXIDIL (2.5MG) 2.5 MG TABLET GT SCH ×2 (09:31→17:40)
[2019-11-24] MEDS: CHLORHEXIDINE GLUCONATE 15 ML UDC MM SCH (09:32)
[2019-11-24] MEDS: ACETAMINOPHEN 650 MG/20 ML UDC- SA PATIENTS-PAIN ONLY GT SCH (09:32)
[2019-11-24] MEDS: INSULIN GLARGINE SQ SCH ×2 (09:40→20:52)
[2019-11-24] MEDS: BASAGLAR SQ SCH ×2 (09:40→20:52)
[2019-11-24 19:50] VITALS: BP_SYST 117; BP_SYST 122; BP_DIAS 52; BP_DIAS 74
[2019-11-24] MEDS: SENNOSIDES 8.6 MG TABLET GT SCH (21:41)
[2019-11-25] MEDS: BLOOD SUGAR DIAGNOSTIC 1 EACH STRIP IN SCH ×5 (00:09→23:38)
[2019-11-25] MEDS: INSULIN ASPART/LISPRO 100 UNIT/ML CARTRIDGE SQ PRN ×5 (00:10→23:37)
[2019-11-25] MEDS: IPRATROPIUM NEB FS 0.5 MG/2.5 ML AMPUL.NEB NEB SCH ×4 (01:36→20:28)
[2019-11-25] MEDS: ALBUTEROL FS 2.5 MG/0.5 ML VIAL.NEB NEB SCH ×4 (01:36→20:28)
[2019-11-25] MEDS: LABETALOL HCL 300 MG TABLET GT SCH ×3 (05:42→20:29)
[2019-11-25] MEDS: METOCLOPRAMIDE HCL 10 MG/10 ML UDC GT SCH ×3 (05:42→20:30)
[2019-11-25] MEDS: hydrALAZINE HCL 25 MG TABLET GT SCH ×3 (05:42→20:27)
[2019-11-25] MEDS: CLONIDINE HCL 0.1 MG TABLET GT SCH ×3 (05:42→20:28)
[2019-11-25 08:08] VITALS: BP 138/54
[2019-11-25] MEDS: BACI/NEOM/POLY B OINT PKT 1 UDPKT PACKET TP SCH ×2 (09:00→20:31)
[2019-11-25] MEDS: HYDROGEN PEROXIDE 480 ML BOTTLE TP SCH ×2 (09:00→20:31)
[2019-11-25] MEDS: Z GUARD REMEDY 4 OZ OINT TP SCH ×2 (09:00→20:31)
[2019-11-25] MEDS: MINERAL OIL/PETROL OINT 396 GM JAR TP SCH ×2 (09:00→20:31)
[2019-11-25] MEDS: FERROUS SULFATE UDC 300 MG/5 ML UDC GT SCH (09:46)
[2019-11-25] MEDS: LACTOBACILLUS RHAMNOSUS GG 1 EACH CAP.SPRINK GT SCH ×2 (09:46→17:05)
[2019-11-25] MEDS: LEVETIRACETAM SOL (5 ML) 100 MG/ML UDC GT SCH ×2 (09:46→20:30)
[2019-11-25] MEDS: DOCUSATE SODIUM LIQ 100 MG/10 ML UDC GT SCH ×2 (09:46→20:28)
[2019-11-25] MEDS: SITAGLIPTIN PHOSPHATE 50 MG TABLET GT SCH (09:46)
[2019-11-25] MEDS: DOXAZOSIN MESYLATE (4 MG) 4 MG TABLET GT SCH ×2 (09:46→20:28)
[2019-11-25] MEDS: LORATADINE 10 MG TABLET GT SCH (09:46)
[2019-11-25] MEDS: ISOSORBIDE DINITRATE (20MG) 20 MG TABLET GT SCH ×3 (09:46→16:57)
[2019-11-25] MEDS: VIT B CMPLX 3/FA/VIT C/BIOTIN 1 TAB TABLET GT SCH (09:47)
[2019-11-25] MEDS: ACETAMINOPHEN 650 MG/20 ML UDC- SA PATIENTS-PAIN ONLY GT SCH (09:47)
[2019-11-25] MEDS: AMLODIPINE BESYLATE 10 MG TABLET GT SCH (09:47)
[2019-11-25] MEDS: MINOXIDIL (2.5MG) 2.5 MG TABLET GT SCH ×2 (09:47→16:57)
[2019-11-25] MEDS: CHLORHEXIDINE GLUCONATE 15 ML UDC MM SCH (09:47)
[2019-11-25] MEDS: FAMOTIDINE (20 MG) 20 MG TABLET GT SCH (09:47)
[2019-11-25] MEDS: BASAGLAR SQ SCH ×2 (09:56→20:44)
[2019-11-25] MEDS: INSULIN GLARGINE SQ SCH ×2 (09:56→20:44)
[2019-11-25] MEDS: NEPRO 1,000 ML BOTTLE GT PRN (17:05)
[2019-11-25] MEDS: BISACODYL SUPP (10 MG) 10 MG/SUPP.RECT SUPP.RECT RC PRN (18:10)
[2019-11-25 20:30] VITALS: BP 139/63
[2019-11-25] MEDS: SENNOSIDES 8.6 MG TABLET GT SCH (21:17)
--- NOTE | 2019-11-25 22:30 | NUR ---
PT RECEIVE STABLE ON MV, SETTINGS ARE SIMV 4 550 +5 @ 40% FIO2, ALARMS ARE ON AND AUDIBLE, SPARE TRACH AND AMBU BAG IS AT BEDSIDE, TRACH PATENT AND SECURED, VENT IS PLUG IS RED OUTLET, WILL CONTINUE TO MONITOR Addendum: 11/25/19 at 2231 by GILBERT ROGERS RT Amended: Links added.
[2019-11-26] MEDS: ALBUTEROL FS 2.5 MG/0.5 ML VIAL.NEB NEB SCH ×4 (02:01→20:06)
[2019-11-26] MEDS: IPRATROPIUM NEB FS 0.5 MG/2.5 ML AMPUL.NEB NEB SCH ×4 (02:01→20:06)
[2019-11-26] MEDS: hydrALAZINE HCL 25 MG TABLET GT SCH ×3 (04:37→21:22)
[2019-11-26] MEDS: CLONIDINE HCL 0.1 MG TABLET GT SCH ×3 (04:37→21:22)
[2019-11-26] MEDS: METOCLOPRAMIDE HCL 10 MG/10 ML UDC GT SCH ×3 (04:37→21:22)
[2019-11-26] MEDS: LABETALOL HCL 300 MG TABLET GT SCH ×3 (04:38→21:22)
[2019-11-26] MEDS: BLOOD SUGAR DIAGNOSTIC 1 EACH STRIP IN SCH ×3 (05:45→17:26)
[2019-11-26] MEDS: INSULIN ASPART/LISPRO 100 UNIT/ML CARTRIDGE SQ PRN ×3 (05:46→17:38)
[2019-11-26 07:47] VITALS: BP 155/74
[2019-11-26] MEDS: INSULIN GLARGINE SQ SCH ×2 (09:00→21:23)
[2019-11-26] MEDS: BASAGLAR SQ SCH ×2 (09:00→21:23)
[2019-11-26] MEDS: HYDROGEN PEROXIDE 480 ML BOTTLE TP SCH ×2 (09:04→20:06)
[2019-11-26] MEDS: DOXAZOSIN MESYLATE (4 MG) 4 MG TABLET GT SCH ×2 (09:48→21:22)
[2019-11-26] MEDS: LACTOBACILLUS RHAMNOSUS GG 1 EACH CAP.SPRINK GT SCH ×2 (09:48→17:26)
[2019-11-26] MEDS: DOCUSATE SODIUM LIQ 100 MG/10 ML UDC GT SCH ×2 (09:48→21:22)
[2019-11-26] MEDS: FERROUS SULFATE UDC 300 MG/5 ML UDC GT SCH (09:48)
[2019-11-26] MEDS: LORATADINE 10 MG TABLET GT SCH (09:48)
[2019-11-26] MEDS: SITAGLIPTIN PHOSPHATE 50 MG TABLET GT SCH (09:49)
[2019-11-26] MEDS: ISOSORBIDE DINITRATE (20MG) 20 MG TABLET GT SCH ×3 (09:49→17:26)
[2019-11-26] MEDS: VIT B CMPLX 3/FA/VIT C/BIOTIN 1 TAB TABLET GT SCH (09:49)
[2019-11-26] MEDS: MINOXIDIL (2.5MG) 2.5 MG TABLET GT SCH ×2 (09:49→17:26)
[2019-11-26] MEDS: AMLODIPINE BESYLATE 10 MG TABLET GT SCH (09:49)
[2019-11-26] MEDS: FAMOTIDINE (20 MG) 20 MG TABLET GT SCH (09:49)
[2019-11-26] MEDS: LEVETIRACETAM SOL (5 ML) 100 MG/ML UDC GT SCH ×2 (09:49→21:22)
[2019-11-26] MEDS: ACETAMINOPHEN 650 MG/20 ML UDC- SA PATIENTS-PAIN ONLY GT SCH (09:50)
[2019-11-26] MEDS: MINERAL OIL/PETROL OINT 396 GM JAR TP SCH ×2 (09:50→21:23)
[2019-11-26] MEDS: BACI/NEOM/POLY B OINT PKT 1 UDPKT PACKET TP SCH ×2 (09:50→21:23)
[2019-11-26] MEDS: CHLORHEXIDINE GLUCONATE 15 ML UDC MM SCH (09:50)
[2019-11-26] MEDS: Z GUARD REMEDY 4 OZ OINT TP SCH ×2 (09:50→21:23)
--- NOTE | 2019-11-26 10:11 | NUR ---
While doing am care, midline was found on patients back, midline not patent, Dr. Treadwell made aware, with new orders to d/c orders 1. d/c midline, 2. d/c midline dressing change Q7 days and PRN/ soiled/dislodged, 3. d/c flush midline with 10ml NS Q shift, order carried out, and responsible green party made aware.
[2019-11-26 21:03] VITALS: BP 143/75
[2019-11-26] MEDS: SENNOSIDES 8.6 MG TABLET GT SCH (21:23)
[2019-11-27] MEDS: ALBUTEROL FS 2.5 MG/0.5 ML VIAL.NEB NEB SCH ×4 (01:05→19:48)
[2019-11-27] MEDS: IPRATROPIUM NEB FS 0.5 MG/2.5 ML AMPUL.NEB NEB SCH ×4 (01:05→19:48)
[2019-11-27] MEDS: METOCLOPRAMIDE HCL 10 MG/10 ML UDC GT SCH ×3 (05:37→20:42)
[2019-11-27] MEDS: BLOOD SUGAR DIAGNOSTIC 1 EACH STRIP IN SCH ×4 (05:37→17:29)
[2019-11-27] MEDS: hydrALAZINE HCL 25 MG TABLET GT SCH ×3 (05:37→20:41)
[2019-11-27] MEDS: CLONIDINE HCL 0.1 MG TABLET GT SCH ×3 (05:37→20:42)
[2019-11-27] MEDS: LABETALOL HCL 300 MG TABLET GT SCH ×3 (05:37→20:42)
[2019-11-27] MEDS: INSULIN ASPART/LISPRO 100 UNIT/ML CARTRIDGE SQ PRN ×4 (05:38→17:30)
[2019-11-27] MEDS: NEPRO 1,000 ML BOTTLE GT PRN (06:37)
[2019-11-27 07:55] VITALS: BP 144/71
[2019-11-27] MEDS: BACI/NEOM/POLY B OINT PKT 1 UDPKT PACKET TP SCH ×2 (09:00→20:43)
[2019-11-27] MEDS: Z GUARD REMEDY 4 OZ OINT TP SCH ×2 (09:00→20:43)
[2019-11-27] MEDS: MINERAL OIL/PETROL OINT 396 GM JAR TP SCH ×2 (09:00→20:43)
[2019-11-27] MEDS: DOXAZOSIN MESYLATE (4 MG) 4 MG TABLET GT SCH ×2 (09:23→20:42)
[2019-11-27] MEDS: LORATADINE 10 MG TABLET GT SCH (09:23)
[2019-11-27] MEDS: DOCUSATE SODIUM LIQ 100 MG/10 ML UDC GT SCH ×2 (09:23→20:42)
[2019-11-27] MEDS: HYDROGEN PEROXIDE 480 ML BOTTLE TP SCH ×2 (09:24→20:43)
[2019-11-27] MEDS: ISOSORBIDE DINITRATE (20MG) 20 MG TABLET GT SCH ×3 (09:24→17:29)
[2019-11-27] MEDS: SITAGLIPTIN PHOSPHATE 50 MG TABLET GT SCH (09:24)
[2019-11-27] MEDS: LEVETIRACETAM SOL (5 ML) 100 MG/ML UDC GT SCH ×2 (09:24→20:42)
[2019-11-27] MEDS: FERROUS SULFATE UDC 300 MG/5 ML UDC GT SCH (09:24)
[2019-11-27] MEDS: LACTOBACILLUS RHAMNOSUS GG 1 EACH CAP.SPRINK GT SCH ×2 (09:24→17:28)
[2019-11-27] MEDS: VIT B CMPLX 3/FA/VIT C/BIOTIN 1 TAB TABLET GT SCH (09:25)
[2019-11-27] MEDS: MINOXIDIL (2.5MG) 2.5 MG TABLET GT SCH ×2 (09:25→17:29)
[2019-11-27] MEDS: FAMOTIDINE (20 MG) 20 MG TABLET GT SCH (09:26)
[2019-11-27] MEDS: AMLODIPINE BESYLATE 10 MG TABLET GT SCH (09:26)
[2019-11-27] MEDS: CHLORHEXIDINE GLUCONATE 15 ML UDC MM SCH (09:29)
[2019-11-27] MEDS: ACETAMINOPHEN 650 MG/20 ML UDC- SA PATIENTS-PAIN ONLY GT SCH (09:29)
[2019-11-27] MEDS: BASAGLAR SQ SCH ×2 (09:30→21:22)
[2019-11-27] MEDS: INSULIN GLARGINE SQ SCH ×2 (09:30→21:22)
[2019-11-27 20:36] VITALS: BP 149/76
[2019-11-27] MEDS: SENNOSIDES 8.6 MG TABLET GT SCH (21:23)
[2019-11-28] MEDS: BLOOD SUGAR DIAGNOSTIC 1 EACH STRIP IN SCH ×4 (00:11→17:17)
[2019-11-28] MEDS: INSULIN ASPART/LISPRO 100 UNIT/ML CARTRIDGE SQ PRN ×4 (00:16→17:19)
[2019-11-28] MEDS: ALBUTEROL FS 2.5 MG/0.5 ML VIAL.NEB NEB SCH ×4 (01:28→19:45)
[2019-11-28] MEDS: IPRATROPIUM NEB FS 0.5 MG/2.5 ML AMPUL.NEB NEB SCH ×4 (01:28→19:45)
[2019-11-28] MEDS: NEPRO 1,000 ML BOTTLE GT PRN (04:30)
[2019-11-28] MEDS: METOCLOPRAMIDE HCL 10 MG/10 ML UDC GT SCH ×3 (05:31→20:51)
[2019-11-28] MEDS: CLONIDINE HCL 0.1 MG TABLET GT SCH ×3 (05:31→20:46)
[2019-11-28] MEDS: LABETALOL HCL 300 MG TABLET GT SCH ×3 (05:31→20:54)
[2019-11-28] MEDS: hydrALAZINE HCL 25 MG TABLET GT SCH ×3 (05:31→20:44)
[2019-11-28 07:52] VITALS: BP 142/65
[2019-11-28] MEDS: HYDROGEN PEROXIDE 480 ML BOTTLE TP SCH ×2 (08:18→20:54)
[2019-11-28] MEDS: FERROUS SULFATE UDC 300 MG/5 ML UDC GT SCH (09:14)
[2019-11-28] MEDS: LORATADINE 10 MG TABLET GT SCH (09:14)
[2019-11-28] MEDS: DOXAZOSIN MESYLATE (4 MG) 4 MG TABLET GT SCH ×2 (09:14→20:45)
[2019-11-28] MEDS: MINOXIDIL (2.5MG) 2.5 MG TABLET GT SCH ×2 (09:14→17:17)
[2019-11-28] MEDS: DOCUSATE SODIUM LIQ 100 MG/10 ML UDC GT SCH ×2 (09:14→20:48)
[2019-11-28] MEDS: ISOSORBIDE DINITRATE (20MG) 20 MG TABLET GT SCH ×3 (09:14→17:17)
[2019-11-28] MEDS: SITAGLIPTIN PHOSPHATE 50 MG TABLET GT SCH (09:14)
[2019-11-28] MEDS: LACTOBACILLUS RHAMNOSUS GG 1 EACH CAP.SPRINK GT SCH ×2 (09:14→17:16)
[2019-11-28] MEDS: VIT B CMPLX 3/FA/VIT C/BIOTIN 1 TAB TABLET GT SCH (09:14)
[2019-11-28] MEDS: LEVETIRACETAM SOL (5 ML) 100 MG/ML UDC GT SCH ×2 (09:14→20:50)
[2019-11-28] MEDS: AMLODIPINE BESYLATE 10 MG TABLET GT SCH (09:15)
[2019-11-28] MEDS: FAMOTIDINE (20 MG) 20 MG TABLET GT SCH (09:15)
[2019-11-28] MEDS: CHLORHEXIDINE GLUCONATE 15 ML UDC MM SCH (09:16)
[2019-11-28] MEDS: ACETAMINOPHEN 650 MG/20 ML UDC- SA PATIENTS-PAIN ONLY GT SCH (09:16)
[2019-11-28] MEDS: BACI/NEOM/POLY B OINT PKT 1 UDPKT PACKET TP SCH (09:17)
[2019-11-28] MEDS: INSULIN GLARGINE SQ SCH ×2 (09:17→21:00)
[2019-11-28] MEDS: Z GUARD REMEDY 4 OZ OINT TP SCH ×2 (09:17→20:55)
[2019-11-28] MEDS: MINERAL OIL/PETROL OINT 396 GM JAR TP SCH ×2 (09:17→20:54)
[2019-11-28] MEDS: BASAGLAR SQ SCH ×2 (09:17→21:00)
[2019-11-28 20:28] VITALS: BP 137/74
[2019-11-28] MEDS: SENNOSIDES 8.6 MG TABLET GT SCH (20:57)
--- NOTE | 2019-11-28 21:35 | NUR ---
PT RECEIVE STABLE ON MV, SETTINGS ARE CPAP 12 PS, +5 @ 30% FIO2, TRACH PATENT AND SECURED, ALARMS ARE ON AND AUDIBLE, SPARE TRACH AND AMBU BAG IS AT BEDSIDE, VENT IS PLUG IN TO RED OUTLET, WILL CONTINUE TO MONITOR Addendum: 11/28/19 at 2136 by GILBERT ROGERS RT Amended: Links added.
--- NOTE | 2019-11-28 22:00 | NUR ---
RN NOTES HS ACCUCHECK BG 116. NO INSULIN COVERAGE NEEDED AT THIS TIME.
[2019-11-29] MEDS: BLOOD SUGAR DIAGNOSTIC 1 EACH STRIP IN SCH ×4 (00:16→17:22)
[2019-11-29] MEDS: NEPRO 1,000 ML BOTTLE GT PRN ×2 (00:16→21:04)
--- NOTE | 2019-11-29 00:22 | NUR ---
RN NOTES BG 117. NO INSULIN COVERAGE NEEDED AT THIS TIME
[2019-11-29] MEDS: ALBUTEROL FS 2.5 MG/0.5 ML VIAL.NEB NEB SCH ×4 (01:19→19:42)
[2019-11-29] MEDS: IPRATROPIUM NEB FS 0.5 MG/2.5 ML AMPUL.NEB NEB SCH ×4 (01:19→19:42)
[2019-11-29] MEDS: hydrALAZINE HCL 25 MG TABLET GT SCH ×3 (05:19→20:29)
[2019-11-29] MEDS: CLONIDINE HCL 0.1 MG TABLET GT SCH ×3 (05:20→20:29)
[2019-11-29] MEDS: METOCLOPRAMIDE HCL 10 MG/10 ML UDC GT SCH ×3 (05:21→20:32)
[2019-11-29] MEDS: LABETALOL HCL 300 MG TABLET GT SCH ×3 (05:22→20:32)
[2019-11-29] MEDS: INSULIN ASPART/LISPRO 100 UNIT/ML CARTRIDGE SQ PRN ×3 (05:35→17:23)
[2019-11-29 07:17] LABS: BASOPHILS % (AUTO) 0.4 % (0.0-2.0); EOSINOPHILS % (AUTO) 23.8 % (0.0-6.0); HEMATOCRIT 23 % (39-51); HEMOGLOBIN 7.2 g/dL (13.5-17.5); LYMPHOCYTES # (AUTO) 0.8 /CMM (0.8-4.8); LYMPHOCYTES % (AUTO) 7.2 % (20.0-44.0); MEAN CORPUSCULAR HGB CONC 32 g/dl (31.0-36.0); MEAN CORPUSCULAR VOLUME 91 fL (80-96); MONOCYTES % (AUTO) 8.7 % (2.0-12.0); NEUTROPHILS # (AUTO) 6.9 /CMM (1.8-8.9); NEUTROPHILS % (AUTO) 59.9 % (43.0-81.0); PLATELET COUNT (AUTO) 221 /CMM (150-450); RED BLOOD CELL COUNT(AUTO) 2.49 MIL/uL (4.5-6.0); WHITE BLOOD COUNT (AUTO) 11.6 K/uL (4.3-11.0)
[2019-11-29 07:26] LABS: ALBUMIN 2.7 g/dL (3.4-5.0); BILIRUBIN,TOTAL 0.3 mg/dL (0.2-1.0); CALCIUM, SERUM 10.2 mg/dL (8.5-10.1); MAGNESIUM 2.5 mg/dL (1.8-2.4); PHOSPHORUS 4.7 mg/dL (2.5-4.9); POTASSIUM 4.8 mmol/L (3.5-5.1); TOTAL PROTEIN, SERUM 7.2 g/dL (6.4-8.2)
[2019-11-29 07:35] VITALS: BP 127/55
[2019-11-29] MEDS: HYDROGEN PEROXIDE 480 ML BOTTLE TP SCH ×2 (09:00→21:02)
[2019-11-29] MEDS: ISOSORBIDE DINITRATE (20MG) 20 MG TABLET GT SCH ×3 (09:05→17:01)
[2019-11-29] MEDS: MINOXIDIL (2.5MG) 2.5 MG TABLET GT SCH ×2 (09:05→17:01)
[2019-11-29] MEDS: LORATADINE 10 MG TABLET GT SCH (09:05)
[2019-11-29] MEDS: VIT B CMPLX 3/FA/VIT C/BIOTIN 1 TAB TABLET GT SCH (09:05)
[2019-11-29] MEDS: DOXAZOSIN MESYLATE (4 MG) 4 MG TABLET GT SCH ×2 (09:05→20:29)
[2019-11-29] MEDS: AMLODIPINE BESYLATE 10 MG TABLET GT SCH (09:05)
[2019-11-29] MEDS: LACTOBACILLUS RHAMNOSUS GG 1 EACH CAP.SPRINK GT SCH ×2 (09:05→17:00)
[2019-11-29] MEDS: LEVETIRACETAM SOL (5 ML) 100 MG/ML UDC GT SCH ×2 (09:05→20:32)
[2019-11-29] MEDS: FERROUS SULFATE UDC 300 MG/5 ML UDC GT SCH (09:05)
[2019-11-29] MEDS: SITAGLIPTIN PHOSPHATE 50 MG TABLET GT SCH (09:05)
[2019-11-29] MEDS: DOCUSATE SODIUM LIQ 100 MG/10 ML UDC GT SCH ×2 (09:05→20:30)
[2019-11-29] MEDS: FAMOTIDINE (20 MG) 20 MG TABLET GT SCH (09:05)
[2019-11-29] MEDS: ACETAMINOPHEN 650 MG/20 ML UDC- SA PATIENTS-PAIN ONLY GT SCH (09:06)
[2019-11-29] MEDS: CHLORHEXIDINE GLUCONATE 15 ML UDC MM SCH (09:06)
[2019-11-29] MEDS: INSULIN GLARGINE SQ SCH ×2 (09:09→21:03)
[2019-11-29] MEDS: BASAGLAR SQ SCH ×2 (09:09→21:03)
[2019-11-29] MEDS: MINERAL OIL/PETROL OINT 396 GM JAR TP SCH ×2 (09:09→20:33)
[2019-11-29] MEDS: Z GUARD REMEDY 4 OZ OINT TP SCH ×2 (09:09→20:33)
[2019-11-29 09:40] LABS: EOSINOPHILS % (MANUAL) 26 % (0-4); LYMPHOCYTES % (MANUAL) 11 % (16-48); MONOCYTES % (MANUAL) 8 % (0-11.0); NEUTROPHILS % (MANUAL) 55 (42-76)
--- NOTE | 2019-11-29 13:00 | NUR ---
Notified Dr Treadwell of abnormal lab results. He said he will review them.
--- NOTE | 2019-11-29 14:24 | NUR ---
JOELLE contacted the pt.s responsible constitution party, Millie Klein [phone] to schedule filling out new intake paperwork as the pt.s have received new accounts. The family stated : they will be available to come in on 12/02/2019 to complete the paperwork.
[2019-11-29] MEDS: BISACODYL SUPP (10 MG) 10 MG/SUPP.RECT SUPP.RECT RC PRN (18:41)
[2019-11-29 20:09] VITALS: BP 135/51
[2019-11-29] MEDS: SENNOSIDES 8.6 MG TABLET GT SCH (21:03)
[2019-11-30] MEDS: BLOOD SUGAR DIAGNOSTIC 1 EACH STRIP IN SCH ×5 (00:58→23:30)
[2019-11-30] MEDS: INSULIN ASPART/LISPRO 100 UNIT/ML CARTRIDGE SQ PRN ×5 (00:59→23:31)
[2019-11-30] MEDS: IPRATROPIUM NEB FS 0.5 MG/2.5 ML AMPUL.NEB NEB SCH ×4 (01:31→19:48)
[2019-11-30] MEDS: ALBUTEROL FS 2.5 MG/0.5 ML VIAL.NEB NEB SCH ×4 (01:31→19:48)
[2019-11-30] MEDS: METOCLOPRAMIDE HCL 10 MG/10 ML UDC GT SCH ×3 (05:34→21:04)
[2019-11-30] MEDS: CLONIDINE HCL 0.1 MG TABLET GT SCH ×3 (05:34→21:03)
[2019-11-30] MEDS: LABETALOL HCL 300 MG TABLET GT SCH ×3 (05:34→21:04)
[2019-11-30] MEDS: hydrALAZINE HCL 25 MG TABLET GT SCH ×3 (05:34→21:03)
[2019-11-30 07:43] VITALS: BP 153/70
[2019-11-30] MEDS: HYDROGEN PEROXIDE 480 ML BOTTLE TP SCH ×2 (09:00→20:06)
[2019-11-30] MEDS: LORATADINE 10 MG TABLET GT SCH (09:15)
[2019-11-30] MEDS: DOCUSATE SODIUM LIQ 100 MG/10 ML UDC GT SCH ×2 (09:16→21:03)
[2019-11-30] MEDS: MINOXIDIL (2.5MG) 2.5 MG TABLET GT SCH ×2 (09:16→17:10)
[2019-11-30] MEDS: SITAGLIPTIN PHOSPHATE 50 MG TABLET GT SCH (09:16)
[2019-11-30] MEDS: ISOSORBIDE DINITRATE (20MG) 20 MG TABLET GT SCH ×3 (09:16→17:10)
[2019-11-30] MEDS: LACTOBACILLUS RHAMNOSUS GG 1 EACH CAP.SPRINK GT SCH ×2 (09:16→17:10)
[2019-11-30] MEDS: FERROUS SULFATE UDC 300 MG/5 ML UDC GT SCH (09:16)
[2019-11-30] MEDS: LEVETIRACETAM SOL (5 ML) 100 MG/ML UDC GT SCH ×2 (09:16→21:04)
[2019-11-30] MEDS: DOXAZOSIN MESYLATE (4 MG) 4 MG TABLET GT SCH ×2 (09:16→21:03)
[2019-11-30] MEDS: VIT B CMPLX 3/FA/VIT C/BIOTIN 1 TAB TABLET GT SCH (09:17)
[2019-11-30] MEDS: AMLODIPINE BESYLATE 10 MG TABLET GT SCH (09:17)
[2019-11-30] MEDS: ACETAMINOPHEN 650 MG/20 ML UDC- SA PATIENTS-PAIN ONLY GT SCH (09:17)
[2019-11-30] MEDS: FAMOTIDINE (20 MG) 20 MG TABLET GT SCH (09:17)
[2019-11-30] MEDS: CHLORHEXIDINE GLUCONATE 15 ML UDC MM SCH (09:37)
[2019-11-30] MEDS: BASAGLAR SQ SCH ×2 (09:38→21:44)
[2019-11-30] MEDS: INSULIN GLARGINE SQ SCH ×2 (09:38→21:44)
[2019-11-30] MEDS: Z GUARD REMEDY 4 OZ OINT TP SCH ×2 (09:39→21:04)
[2019-11-30] MEDS: MINERAL OIL/PETROL OINT 396 GM JAR TP SCH ×2 (09:39→21:04)
[2019-11-30] MEDS: RETACRIT 10,000 UNITS SQ SCH (11:00)
[2019-11-30] MEDS: NEPRO 1,000 ML BOTTLE GT PRN (17:14)
[2019-11-30 19:55] VITALS: BP 123/67
--- NOTE | 2019-11-30 20:41 | NUR ---
RT NOTE PT RECEIVED TRACHED ON MECHANICAL VENTILATION. AWAKE/ALERT. AMBU BAG/BACK UP TRACH @ BEDSIDE. TX GIVEN, NO ADVERSE REACTIONS NOTED. SX DONE, TRACH SECURED AND PATENT. ALARMS ON AND AUDIBLE. VENT PLUGGED TO RED OUTLET. NO SOB NOTED. WILL MONITOR T/O SHIFT. CONT. PULSE OX CONNECTED. Addendum: 11/30/19 at 2041 by MEGHAN MEHTA RT Amended: Links added.
[2019-11-30] MEDS: SENNOSIDES 8.6 MG TABLET GT SCH (21:04)
[2019-12-01] MEDS: IPRATROPIUM NEB FS 0.5 MG/2.5 ML AMPUL.NEB NEB SCH ×2 (02:23→07:45)
[2019-12-01] MEDS: ALBUTEROL FS 2.5 MG/0.5 ML VIAL.NEB NEB SCH ×2 (02:23→07:45)
[2019-12-01] MEDS: METOCLOPRAMIDE HCL 10 MG/10 ML UDC GT SCH (05:02)
[2019-12-01] MEDS: hydrALAZINE HCL 25 MG TABLET GT SCH (05:02)
[2019-12-01] MEDS: LABETALOL HCL 300 MG TABLET GT SCH (05:02)
[2019-12-01] MEDS: CLONIDINE HCL 0.1 MG TABLET GT SCH (05:02)
[2019-12-01] MEDS: INSULIN ASPART/LISPRO 100 UNIT/ML CARTRIDGE SQ PRN (05:40)
[2019-12-01] MEDS: BLOOD SUGAR DIAGNOSTIC 1 EACH STRIP IN SCH (05:40)
[2019-12-01 07:36] VITALS: BP 144/77
== END 2019-11-29 23:59 | disposition still patient (30) | DRG 133 ==
LOC: SA 18:27
PROVIDERS: ADMIT Internal Medicine; ATTEND Internal Medicine
PROC: 5A1945Z Respiratory Ventilation, 24-96 Consecutive Hours (ICD-10-PCS; principal; 2019-09-20)
PROC: 0JBH0ZZ Excision of Left Lower Arm Subcutaneous Tissue and Fascia, Open Approach (ICD-10-PCS; 2019-09-23)
DX: J96.11 Chronic respiratory failure with hypoxia (principal); Z99.11 Dependence on respirator [ventilator] status; G93.41 Metabolic encephalopathy; Z93.0 Tracheostomy status; E44.0 Moderate protein-calorie malnutrition; J90 Pleural effusion, not elsewhere classified; J81.1 Chronic pulmonary edema; E11.22 Type 2 diabetes mellitus with diabetic chronic kidney disease; R13.10 Dysphagia, unspecified; I12.0 Hypertensive chronic kidney disease with stage 5 chronic kidney disease or end stage renal disease; N18.6 End stage renal disease; G40.909 Epilepsy, unspecified, not intractable, without status epilepticus; Z99.2 Dependence on renal dialysis; Z93.1 Gastrostomy status; B35.1 Tinea unguium; D63.8 Anemia in other chronic diseases classified elsewhere; E87.0 Hyperosmolality and hypernatremia; E87.1 Hypo-osmolality and hyponatremia; S06.9X9S Unspecified intracranial injury with loss of consciousness of unspecified duration, sequela; Z74.01 Bed confinement status; Z86.73 Personal history of transient ischemic attack (TIA), and cerebral infarction without residual deficits; S51.802A Unspecified open wound of left forearm, initial encounter; X58.XXXA Exposure to other specified factors, initial encounter; Y93.89 Activity, other specified; Y92.89 Other specified places as the place of occurrence of the external cause; Z79.4 Long term (current) use of insulin
CPT/HCPCS: 31720; 36415; 36600; 71045-TC; 74018; 74230-TC; 76770-TC; 80048-TC; 80053-TC; 80202-TC; 81000-TC; 82272-TC; 82565-TC; 82728-TC; 82803-TC; 82962-TC; 83540-TC; 83735-TC; 84100-TC; 84443-TC; 84520-TC; 85025-TC; 86580-TC; 87040-TC; 87070-TC; 87081-TC; 87086-TC; 92507-TC; 92521; 92526; 94002-TC; 94003-TC; 94640-TC; 94760-TC; 94762-TC; 97110-TC; 97112-TC; A4216; A4217; A4623; A7526; J0692; J0885; J1815; J1940; J1953; J2185; J3370; J7060; J7070; J8597; L8501

== ENCOUNTER 2019-11-30 | Inpatient (IN) | payer OTHER ==
[~2019-11-30] VITALS: Ht 172.7 cm; Wt 72.1 kg
[~2019-11-30] MED LIST changes: -INSU100I26 SQ; -INSU100V36 SQ; -ISOS20TA8 PO; -SODI10PO GT
--- NOTE | 2019-11-30 10:04 | NUR ---
Please see resident's previous account [id number] for all assessments and nurses notes. Originally admitted on 09/20/2019;
[2019-12-01] MEDS: MINERAL OIL/PETROL OINT 396 GM JAR TP SCH ×2 (09:00→20:09)
[2019-12-01] MEDS: BASAGLAR SQ SCH ×2 (09:00→20:39)
[2019-12-01] MEDS: FERROUS SULFATE UDC 300 MG/5 ML UDC GT SCH (09:00)
[2019-12-01] MEDS: DOXAZOSIN MESYLATE (4 MG) 4 MG TABLET GT SCH ×2 (09:00→20:08)
[2019-12-01] MEDS: VIT B CMPLX 3/FA/VIT C/BIOTIN 1 TAB TABLET GT SCH (09:00)
[2019-12-01] MEDS: CHLORHEXIDINE GLUCONATE 15 ML UDC MM SCH (09:00)
[2019-12-01] MEDS: ISOSORBIDE DINITRATE (20MG) 20 MG TABLET GT SCH ×3 (09:00→17:14)
[2019-12-01] MEDS: ACETAMINOPHEN 650 MG/20 ML UDC- SA PATIENTS-PAIN ONLY GT SCH (09:00)
[2019-12-01] MEDS: INSULIN GLARGINE SQ SCH ×2 (09:00→20:39)
[2019-12-01] MEDS: LORATADINE 10 MG TABLET GT SCH (09:00)
[2019-12-01] MEDS: AMLODIPINE BESYLATE 10 MG TABLET GT SCH (09:00)
[2019-12-01] MEDS: HYDROGEN PEROXIDE 480 ML BOTTLE TP SCH ×2 (09:00→20:05)
[2019-12-01] MEDS: MINOXIDIL (2.5MG) 2.5 MG TABLET GT SCH ×2 (09:00→17:14)
[2019-12-01] MEDS: SITAGLIPTIN PHOSPHATE 50 MG TABLET GT SCH (09:00)
[2019-12-01] MEDS: LEVETIRACETAM SOL (5 ML) 100 MG/ML UDC GT SCH ×2 (09:00→20:08)
[2019-12-01] MEDS: Z GUARD REMEDY 4 OZ OINT TP SCH ×2 (09:00→20:09)
[2019-12-01] MEDS: LACTOBACILLUS RHAMNOSUS GG 1 EACH CAP.SPRINK GT SCH ×2 (09:00→17:27)
[2019-12-01] MEDS: DOCUSATE SODIUM LIQ 100 MG/10 ML UDC GT SCH ×2 (09:00→20:08)
[2019-12-01] MEDS: FAMOTIDINE (20 MG) 20 MG TABLET GT SCH (09:00)
[2019-12-01] MEDS ORDERED: NA PHOS,M-B/NA PHOS,DI-BA 1 EA ENEMA RC PRN (11:30)
[2019-12-01] MEDS ORDERED: ONDANSETRON HCL/PF 4 MG/2 ML VIAL IV PRN (11:30)
[2019-12-01] MEDS ORDERED: IPRATROPIUM NEB FS 0.5 MG/2.5 ML AMPUL.NEB NEB PRN (11:30)
[2019-12-01] MEDS ORDERED: ACETAMINOPHEN 650 MG/20 ML UDC- SA PATIENTS-FEVER ONLY GT PRN (11:30)
[2019-12-01] MEDS ORDERED: ALBUTEROL FS 2.5 MG/0.5 ML VIAL.NEB NEB PRN (11:30)
[2019-12-01] MEDS: hydrALAZINE HCL 25 MG TABLET GT SCH ×2 (12:41→20:08)
[2019-12-01] MEDS: METOCLOPRAMIDE HCL 10 MG/10 ML UDC GT SCH ×2 (12:41→20:08)
[2019-12-01] MEDS: LABETALOL HCL 300 MG TABLET GT SCH ×2 (12:41→20:09)
[2019-12-01] MEDS: BLOOD SUGAR DIAGNOSTIC 1 EACH STRIP IN SCH ×3 (12:41→23:37)
[2019-12-01] MEDS: CLONIDINE HCL 0.1 MG TABLET GT SCH ×2 (12:41→20:08)
[2019-12-01] MEDS: INSULIN ASPART/LISPRO 100 UNIT/ML CARTRIDGE SQ PRN ×3 (12:42→23:37)
[2019-12-01] MEDS: NEPRO 1,000 ML BOTTLE GT PRN (12:47)
[2019-12-01] MEDS: IPRATROPIUM NEB FS 0.5 MG/2.5 ML AMPUL.NEB NEB SCH ×2 (13:40→20:05)
[2019-12-01] MEDS: ALBUTEROL FS 2.5 MG/0.5 ML VIAL.NEB NEB SCH ×2 (13:40→20:05)
[2019-12-01 20:01] VITALS: BP 135/57
[2019-12-02] MEDS: IPRATROPIUM NEB FS 0.5 MG/2.5 ML AMPUL.NEB NEB SCH ×4 (01:48→19:52)
[2019-12-02] MEDS: ALBUTEROL FS 2.5 MG/0.5 ML VIAL.NEB NEB SCH ×4 (01:48→19:52)
[2019-12-02] MEDS: hydrALAZINE HCL 25 MG TABLET GT SCH ×3 (05:15→20:20)
[2019-12-02] MEDS: CLONIDINE HCL 0.1 MG TABLET GT SCH ×3 (05:15→20:21)
[2019-12-02] MEDS: METOCLOPRAMIDE HCL 10 MG/10 ML UDC GT SCH ×3 (05:15→20:21)
[2019-12-02] MEDS: BLOOD SUGAR DIAGNOSTIC 1 EACH STRIP IN SCH ×4 (05:15→23:13)
[2019-12-02] MEDS: LABETALOL HCL 300 MG TABLET GT SCH ×3 (05:15→20:21)
[2019-12-02] MEDS: INSULIN ASPART/LISPRO 100 UNIT/ML CARTRIDGE SQ PRN ×4 (05:16→23:14)
[2019-12-02 07:36] VITALS: BP 161/47
[2019-12-02] MEDS: HYDROGEN PEROXIDE 480 ML BOTTLE TP SCH ×2 (08:12→21:09)
[2019-12-02] MEDS: BASAGLAR SQ SCH ×2 (09:00→20:30)
[2019-12-02] MEDS: Z GUARD REMEDY 4 OZ OINT TP SCH ×2 (09:00→20:21)
[2019-12-02] MEDS: MINERAL OIL/PETROL OINT 396 GM JAR TP SCH ×2 (09:00→20:21)
[2019-12-02] MEDS: DOXAZOSIN MESYLATE (4 MG) 4 MG TABLET GT SCH ×2 (09:00→20:20)
[2019-12-02] MEDS: INSULIN GLARGINE SQ SCH ×2 (09:00→20:30)
[2019-12-02] MEDS: LORATADINE 10 MG TABLET GT SCH (09:00)
[2019-12-02] MEDS: LEVETIRACETAM SOL (5 ML) 100 MG/ML UDC GT SCH ×2 (09:41→20:21)
[2019-12-02] MEDS: LACTOBACILLUS RHAMNOSUS GG 1 EACH CAP.SPRINK GT SCH ×2 (09:41→17:22)
[2019-12-02] MEDS: DOCUSATE SODIUM LIQ 100 MG/10 ML UDC GT SCH ×2 (09:41→20:21)
[2019-12-02] MEDS: MINOXIDIL (2.5MG) 2.5 MG TABLET GT SCH ×2 (09:42→17:22)
[2019-12-02] MEDS: AMLODIPINE BESYLATE 10 MG TABLET GT SCH (09:42)
[2019-12-02] MEDS: VIT B CMPLX 3/FA/VIT C/BIOTIN 1 TAB TABLET GT SCH (09:42)
[2019-12-02] MEDS: SITAGLIPTIN PHOSPHATE 50 MG TABLET GT SCH (09:42)
[2019-12-02] MEDS: FAMOTIDINE (20 MG) 20 MG TABLET GT SCH (09:42)
[2019-12-02] MEDS: FERROUS SULFATE UDC 300 MG/5 ML UDC GT SCH (09:42)
[2019-12-02] MEDS: ISOSORBIDE DINITRATE (20MG) 20 MG TABLET GT SCH ×3 (09:42→17:22)
[2019-12-02] MEDS: ACETAMINOPHEN 650 MG/20 ML UDC- SA PATIENTS-PAIN ONLY GT SCH (09:43)
[2019-12-02] MEDS: CHLORHEXIDINE GLUCONATE 15 ML UDC MM SCH (09:43)
--- NOTE | 2019-12-02 14:20 | NUR ---
Notified Dr. Treadwell that resident latest labs were taken on 11/29. New order given for CBC and BMP today. Resident informed of new order as well as his aunt who is visiting.
[2019-12-02 16:00] LABS: BASOPHILS # (AUTO) 0.1 /CMM (0.0-0.2); BASOPHILS % (AUTO) 0.4 % (0.0-2.0); EOSINOPHILS % (AUTO) 16.5 % (0.0-6.0); HEMATOCRIT 22 % (39-51); HEMOGLOBIN 7.1 g/dL (13.5-17.5); LYMPHOCYTES # (AUTO) 1.1 /CMM (0.8-4.8); LYMPHOCYTES % (AUTO) 6.7 % (20.0-44.0); MEAN CORPUSCULAR HGB CONC 32 g/dl (31.0-36.0); MEAN CORPUSCULAR VOLUME 91 fL (80-96); MONOCYTES # (AUTO) 1.6 /CMM (0.1-1.30); MONOCYTES % (AUTO) 9.8 % (2.0-12.0); NEUTROPHILS # (AUTO) 10.5 /CMM (1.8-8.9); NEUTROPHILS % (AUTO) 66.6 % (43.0-81.0); PLATELET COUNT (AUTO) 205 /CMM (150-450); RED BLOOD CELL COUNT(AUTO) 2.45 MIL/uL (4.5-6.0); WHITE BLOOD COUNT (AUTO) 15.8 K/uL (4.3-11.0)
[2019-12-02 16:08] LABS: CALCIUM, SERUM 10.3 mg/dL (8.5-10.1); CREATININE 2.9 mg/dL (0.6-1.3); POTASSIUM 5.3 mmol/L (3.5-5.1)
--- NOTE | 2019-12-02 16:37 | NUR ---
RT NOTES RECEIVED PATIENT ON VENT WITH ORDERED SETTINGS. ALARMS ON AND AUDIBLE. TRACH TUBE IN PLACE PATENT AND SECURE WITH TRACH TIE. VENT PLUGGED IN TO RED OUTLET. BACK UP TRACH AND AMBU BAG BY THE BEDSIDE. NO DISTRESS AT THIS TIME. Addendum: 12/02/19 at 1637 by LORI LOERA RT Amended: Links added.
--- NOTE | 2019-12-02 16:37 | NUR ---
RT NOTES MONTHLY TRACH TUBE CHANGE. MINIMAL BLEEDING. PATIENT TOLERATE WELL. NOTIFIED NURSE. Addendum: 12/02/19 at 1639 by LORI LOERA RT Amended: Links added.
[2019-12-02] MEDS: NEPRO 1,000 ML BOTTLE GT PRN (17:22)
--- NOTE | 2019-12-02 17:35 | NUR ---
Left a message to Dr. Treadwell regarding BMP and CBC result, WBC 15.8, Hbg 7.1, Hct 22, Na 152, K+ 5.3, BUN 66, Creat 2.9.
--- NOTE | 2019-12-02 18:00 | NUR ---
Notified MAYRA Deluca of resident's WBC result 15.8, with new order to send urine for culture. V/S 152/71, 84, 100, T 99.1 Urine specimen collected and sent.
[2019-12-02 20:24] VITALS: BP 126/54
--- NOTE | 2019-12-02 21:11 | NUR ---
Seen and examined by Lidia Hoang TETRYL BOILING TUB OPERATOR, no new orders
[2019-12-03] MEDS: ALBUTEROL FS 2.5 MG/0.5 ML VIAL.NEB NEB SCH ×4 (01:31→20:00)
[2019-12-03] MEDS: IPRATROPIUM NEB FS 0.5 MG/2.5 ML AMPUL.NEB NEB SCH ×4 (01:31→20:00)
[2019-12-03] MEDS: hydrALAZINE HCL 25 MG TABLET GT SCH ×3 (05:29→20:22)
[2019-12-03] MEDS: CLONIDINE HCL 0.1 MG TABLET GT SCH ×3 (05:29→20:22)
[2019-12-03] MEDS: LABETALOL HCL 300 MG TABLET GT SCH ×3 (05:30→20:22)
[2019-12-03] MEDS: METOCLOPRAMIDE HCL 10 MG/10 ML UDC GT SCH ×3 (05:30→20:22)
[2019-12-03] MEDS: BLOOD SUGAR DIAGNOSTIC 1 EACH STRIP IN SCH ×4 (05:44→23:12)
[2019-12-03] MEDS: INSULIN ASPART/LISPRO 100 UNIT/ML CARTRIDGE SQ PRN ×4 (05:45→23:13)
[2019-12-03 07:49] VITALS: BP 135/66
[2019-12-03] MEDS: ISOSORBIDE DINITRATE (20MG) 20 MG TABLET GT SCH ×3 (08:52→16:49)
[2019-12-03] MEDS: LEVETIRACETAM SOL (5 ML) 100 MG/ML UDC GT SCH ×2 (08:52→20:22)
[2019-12-03] MEDS: DOCUSATE SODIUM LIQ 100 MG/10 ML UDC GT SCH ×2 (08:52→20:22)
[2019-12-03] MEDS: SITAGLIPTIN PHOSPHATE 50 MG TABLET GT SCH (08:52)
[2019-12-03] MEDS: LORATADINE 10 MG TABLET GT SCH (08:52)
[2019-12-03] MEDS: FERROUS SULFATE UDC 300 MG/5 ML UDC GT SCH (08:52)
[2019-12-03] MEDS: LACTOBACILLUS RHAMNOSUS GG 1 EACH CAP.SPRINK GT SCH ×2 (08:52→16:49)
[2019-12-03] MEDS: DOXAZOSIN MESYLATE (4 MG) 4 MG TABLET GT SCH ×2 (08:52→20:22)
[2019-12-03] MEDS: AMLODIPINE BESYLATE 10 MG TABLET GT SCH (08:53)
[2019-12-03] MEDS: VIT B CMPLX 3/FA/VIT C/BIOTIN 1 TAB TABLET GT SCH (08:53)
[2019-12-03] MEDS: FAMOTIDINE (20 MG) 20 MG TABLET GT SCH (08:53)
[2019-12-03] MEDS: MINOXIDIL (2.5MG) 2.5 MG TABLET GT SCH ×2 (08:53→16:50)
[2019-12-03] MEDS: ACETAMINOPHEN 650 MG/20 ML UDC- SA PATIENTS-PAIN ONLY GT SCH (08:53)
[2019-12-03] MEDS: CHLORHEXIDINE GLUCONATE 15 ML UDC MM SCH (08:54)
[2019-12-03] MEDS: MINERAL OIL/PETROL OINT 396 GM JAR TP SCH ×2 (08:55→20:22)
[2019-12-03] MEDS: INSULIN GLARGINE SQ SCH ×2 (08:55→20:51)
[2019-12-03] MEDS: BASAGLAR SQ SCH ×2 (08:55→20:51)
[2019-12-03] MEDS: Z GUARD REMEDY 4 OZ OINT TP SCH ×2 (09:00→20:22)
[2019-12-03] MEDS: HYDROGEN PEROXIDE 480 ML BOTTLE TP SCH ×2 (09:00→20:22)
[2019-12-03] MEDS: NEPRO 1,000 ML BOTTLE GT PRN (15:14)
[2019-12-03 20:54] VITALS: BP 150/75
[2019-12-04 00:14] VITALS: BP 145/58
[2019-12-04] MEDS: IPRATROPIUM NEB FS 0.5 MG/2.5 ML AMPUL.NEB NEB SCH ×4 (01:59→20:04)
[2019-12-04] MEDS: ALBUTEROL FS 2.5 MG/0.5 ML VIAL.NEB NEB SCH ×4 (01:59→20:04)
--- NOTE | 2019-12-04 03:07 | NUR ---
RT NOTE: RECEIVED TRACH PT ON NOTED ORDERED VENT SETTINGS. NO RESPIRATORY DISTRESS NOTED. TRACH CHECKED SECURE AND PATENT. SXD AND LAVAGE Q ROUND AND NEEDED. TXS GIVEN WITH NO ADVERSE EFFECTS NOTED. TRACH CARE DONE. SPARE TRACH AND AMBU BAG @ BEDSIDE. ALARMS CHECKED ON AND AUDIBLE. VENT PLUGGED INTO RED OUTLET.
[2019-12-04] MEDS: hydrALAZINE HCL 25 MG TABLET GT SCH ×3 (05:04→21:28)
[2019-12-04] MEDS: CLONIDINE HCL 0.1 MG TABLET GT SCH ×3 (05:05→21:28)
[2019-12-04] MEDS: METOCLOPRAMIDE HCL 10 MG/10 ML UDC GT SCH ×3 (05:05→21:28)
[2019-12-04] MEDS: LABETALOL HCL 300 MG TABLET GT SCH ×3 (05:05→21:28)
[2019-12-04] MEDS: BLOOD SUGAR DIAGNOSTIC 1 EACH STRIP IN SCH ×4 (05:29→23:21)
[2019-12-04] MEDS: INSULIN ASPART/LISPRO 100 UNIT/ML CARTRIDGE SQ PRN ×4 (05:30→23:22)
[2019-12-04 07:53] VITALS: BP 152/76
[2019-12-04] MEDS: HYDROGEN PEROXIDE 480 ML BOTTLE TP SCH ×2 (08:28→20:04)
[2019-12-04] MEDS: DOXAZOSIN MESYLATE (4 MG) 4 MG TABLET GT SCH ×2 (09:00→21:28)
[2019-12-04] MEDS: LACTOBACILLUS RHAMNOSUS GG 1 EACH CAP.SPRINK GT SCH ×2 (09:00→17:04)
[2019-12-04] MEDS: SITAGLIPTIN PHOSPHATE 50 MG TABLET GT SCH (09:00)
[2019-12-04] MEDS: MINERAL OIL/PETROL OINT 396 GM JAR TP SCH ×2 (09:00→21:29)
[2019-12-04] MEDS: INSULIN GLARGINE SQ SCH ×2 (09:00→21:29)
[2019-12-04] MEDS: LEVETIRACETAM SOL (5 ML) 100 MG/ML UDC GT SCH ×2 (09:00→21:28)
[2019-12-04] MEDS: Z GUARD REMEDY 4 OZ OINT TP SCH ×2 (09:00→21:29)
[2019-12-04] MEDS: AMLODIPINE BESYLATE 10 MG TABLET GT SCH (09:00)
[2019-12-04] MEDS: FAMOTIDINE (20 MG) 20 MG TABLET GT SCH (09:00)
[2019-12-04] MEDS: CHLORHEXIDINE GLUCONATE 15 ML UDC MM SCH (09:00)
[2019-12-04] MEDS: FERROUS SULFATE UDC 300 MG/5 ML UDC GT SCH (09:00)
[2019-12-04] MEDS: ISOSORBIDE DINITRATE (20MG) 20 MG TABLET GT SCH ×3 (09:00→17:05)
[2019-12-04] MEDS: LORATADINE 10 MG TABLET GT SCH (09:00)
[2019-12-04] MEDS: VIT B CMPLX 3/FA/VIT C/BIOTIN 1 TAB TABLET GT SCH (09:00)
[2019-12-04] MEDS: ACETAMINOPHEN 650 MG/20 ML UDC- SA PATIENTS-PAIN ONLY GT SCH (09:00)
[2019-12-04] MEDS: BASAGLAR SQ SCH ×2 (09:00→21:29)
[2019-12-04] MEDS: MINOXIDIL (2.5MG) 2.5 MG TABLET GT SCH ×2 (09:00→17:05)
[2019-12-04] MEDS: DOCUSATE SODIUM LIQ 100 MG/10 ML UDC GT SCH ×2 (09:00→21:28)
--- NOTE | 2019-12-04 16:00 | NUR ---
Patient awake, alert, responsive to tactile stimulus, able to respond through gestures at times. Patient on CPAP, PSV 12, Peep 5 (to titrate O2 sat), tolerating well at this time. Suctioned as needed. Kept HOB elevated at all times. No respiratory distress noted. Patients' temp this morning, 98.5. Temp. right now 99. Preliminary urine culture pending. Patients' alberts catheter patent and intact draining to yellow urine output, no hematuria noted. Provided good shellie care every shift. Patient closely monitored.
--- NOTE | 2019-12-04 20:04 | NUR ---
RT NOTE: RECEIVED TRACH PATIENT ON [facility] VENT WITH NOTED SETTINGS PER MD ORDERS. HHN TREATMENT GIVEN AT THIS TIME WITH NO ADVERSE REACTION NOTED. TRACH CARE DONE. TRACH IS PATENT AND SECURED. SX DONE PRN. ALARMS ARE ON AND AUDIBLE. VENT IS PLUGGED INTO RED OUTLET WITH AMBU BAG AT BEDSIDE. NO RESP DISTRESS NOTED AT THIS TIME. WILL CONT TO MONITOR PT. Addendum: 12/05/19 at 0225 by GATO MICHELE RT Amended: Links added.
[2019-12-04 20:46] VITALS: BP 146/69
[2019-12-05] MEDS: IPRATROPIUM NEB FS 0.5 MG/2.5 ML AMPUL.NEB NEB SCH ×4 (02:07→20:08)
[2019-12-05] MEDS: ALBUTEROL FS 2.5 MG/0.5 ML VIAL.NEB NEB SCH ×4 (02:07→20:08)
[2019-12-05] MEDS: LABETALOL HCL 300 MG TABLET GT SCH ×3 (05:26→21:03)
[2019-12-05] MEDS: CLONIDINE HCL 0.1 MG TABLET GT SCH ×3 (05:26→21:03)
[2019-12-05] MEDS: hydrALAZINE HCL 25 MG TABLET GT SCH ×3 (05:26→21:03)
[2019-12-05] MEDS: METOCLOPRAMIDE HCL 10 MG/10 ML UDC GT SCH ×3 (05:26→21:03)
[2019-12-05] MEDS: INSULIN ASPART/LISPRO 100 UNIT/ML CARTRIDGE SQ PRN ×4 (05:58→23:46)
[2019-12-05] MEDS: BLOOD SUGAR DIAGNOSTIC 1 EACH STRIP IN SCH ×4 (05:58→23:45)
[2019-12-05] MEDS: HYDROGEN PEROXIDE 480 ML BOTTLE TP SCH ×2 (08:12→21:35)
[2019-12-05] MEDS: LORATADINE 10 MG TABLET GT SCH (09:53)
[2019-12-05] MEDS: DOXAZOSIN MESYLATE (4 MG) 4 MG TABLET GT SCH ×2 (09:53→21:03)
[2019-12-05] MEDS: DOCUSATE SODIUM LIQ 100 MG/10 ML UDC GT SCH ×2 (09:53→21:03)
[2019-12-05] MEDS: LACTOBACILLUS RHAMNOSUS GG 1 EACH CAP.SPRINK GT SCH ×2 (09:53→17:00)
[2019-12-05] MEDS: FERROUS SULFATE UDC 300 MG/5 ML UDC GT SCH (09:53)
[2019-12-05] MEDS: ISOSORBIDE DINITRATE (20MG) 20 MG TABLET GT SCH ×3 (09:54→17:00)
[2019-12-05] MEDS: LEVETIRACETAM SOL (5 ML) 100 MG/ML UDC GT SCH ×2 (09:54→21:03)
[2019-12-05] MEDS: FAMOTIDINE (20 MG) 20 MG TABLET GT SCH (09:54)
[2019-12-05] MEDS: SITAGLIPTIN PHOSPHATE 50 MG TABLET GT SCH (09:54)
[2019-12-05] MEDS: VIT B CMPLX 3/FA/VIT C/BIOTIN 1 TAB TABLET GT SCH (09:54)
[2019-12-05] MEDS: AMLODIPINE BESYLATE 10 MG TABLET GT SCH (09:54)
[2019-12-05] MEDS: MINOXIDIL (2.5MG) 2.5 MG TABLET GT SCH ×2 (09:54→17:00)
[2019-12-05] MEDS: ACETAMINOPHEN 650 MG/20 ML UDC- SA PATIENTS-PAIN ONLY GT SCH (09:55)
[2019-12-05] MEDS: CHLORHEXIDINE GLUCONATE 15 ML UDC MM SCH (09:55)
[2019-12-05] MEDS: INSULIN GLARGINE SQ SCH ×2 (09:56→21:08)
[2019-12-05] MEDS: BASAGLAR SQ SCH ×2 (09:56→21:08)
[2019-12-05] MEDS: MINERAL OIL/PETROL OINT 396 GM JAR TP SCH ×2 (09:57→21:03)
[2019-12-05] MEDS: Z GUARD REMEDY 4 OZ OINT TP SCH ×2 (09:57→21:04)
[2019-12-05 10:25] LABS: BASOPHILS # (AUTO) 0.1 /CMM (0.0-0.2); BASOPHILS % (AUTO) 0.4 % (0.0-2.0); EOSINOPHILS % (AUTO) 13.6 % (0.0-6.0); HEMATOCRIT 22 % (39-51); LYMPHOCYTES # (AUTO) 0.8 /CMM (0.8-4.8); LYMPHOCYTES % (AUTO) 5.2 % (20.0-44.0); MEAN CORPUSCULAR HGB CONC 32 g/dl (31.0-36.0); MEAN CORPUSCULAR VOLUME 92 fL (80-96); MONOCYTES # (AUTO) 1.5 /CMM (0.1-1.30); MONOCYTES % (AUTO) 9.6 % (2.0-12.0); NEUTROPHILS # (AUTO) 11.2 /CMM (1.8-8.9); NEUTROPHILS % (AUTO) 71.2 % (43.0-81.0); PLATELET COUNT (AUTO) 170 /CMM (150-450); RED BLOOD CELL COUNT(AUTO) 2.38 MIL/uL (4.5-6.0); WHITE BLOOD COUNT (AUTO) 15.7 K/uL (4.3-11.0)
[2019-12-05 10:30] LABS: HEMOGLOBIN 6.9 g/dL (13.5-17.5)
[2019-12-05 10:44] LABS: ALBUMIN 2.7 g/dL (3.4-5.0); BILIRUBIN,TOTAL 0.3 mg/dL (0.2-1.0); CALCIUM, SERUM 10.3 mg/dL (8.5-10.1); CREATININE 3.2 mg/dL (0.6-1.3); MAGNESIUM 2.5 mg/dL (1.8-2.4); PHOSPHORUS 3.8 mg/dL (2.5-4.9); POTASSIUM 5.5 mmol/L (3.5-5.1); TOTAL PROTEIN, SERUM 7.4 g/dL (6.4-8.2)
--- NOTE | 2019-12-05 10:45 | NUR ---
Notified Dr Treadwell that b 6.9. He said he will review. No new order yet.
[2019-12-05 11:05] LABS: BAND % (MANUAL) 1 % (0.0-5.0); EOSINOPHILS % (MANUAL) 15 % (0-4); LYMPHOCYTES % (MANUAL) 3 % (16-48); MONOCYTES % (MANUAL) 10 % (0-11.0); NEUTROPHILS % (MANUAL) 71 (42-76)
--- NOTE | 2019-12-05 11:37 | NUR ---
SW called the pt.'s responsible republican, Keith Klein [phone] to remind them that the new intake paperwork need to be completed [place]. Per Keith him or his , Millie will come in sometime this week to complete it. Noted.
[2019-12-05] MEDS: NEPRO 1,000 ML BOTTLE GT PRN (11:56)
[2019-12-05 13:12] VITALS: BP 121/57
--- NOTE | 2019-12-05 17:01 | NUR ---
RT NOTE RECEIVED PATIENT ON TRACH WITH MECHANICAL VENTILATOR. TRACH IS PATENT AND SECURED. SPARE TRACH AND BVM IS AT BEDSIDE. ALARMS ARE SET AND AUDIBLE. VENTILATOR IS PLUGGED TO RED OUTLET. PATIENT IS IN SYNC AND COMFORTABLE WITH THE VENTILATOR. PATIENT HAS EQUAL CHEST RISE WITH COARSE BILATERAL BREATH SOUNDS. SUCTION SMALL AMOUNT OF GREEN/PINK TINGED THICK SECRETIONS THROUGH OUT THE DAY. PATIENT TOLERATED Q6 BREATHING TREATMENTS WELL. Addendum: 12/05/19 at 1706 by DIA PIERRE RT Amended: Links added.
[2019-12-05] MEDS ORDERED: IV D5W 1,000 ML IV ONE (17:30)
[2019-12-05] MEDS ORDERED: SODIUM POLYSTYRENE SULFONATE 15 G/60 ML BOTTLE PO ONE (17:30)
--- NOTE | 2019-12-05 17:30 | NUR ---
Dr Treadwell ordered D5W 50 mL/hr IV x 1 L, Kayexalate 30 gm GT x 1, CBC CMP Mg Phos in AM, and increase water flushes from 250 to 350 mL q 4 hours. Notified Keith.
--- NOTE | 2019-12-05 20:08 | NUR ---
RT NOTES PT RECEIVED TRACHED ON [facility] VENT ON CHARTED SETTINGS. NO SIGNS OF RESP DISTRESS/SOB NOTED AT THIS TIME. AIRWAY PATENT AND SECURED. MUSIC EDUCATION DIRECTOR DONE. PT SUCTIONED. HHN TREATMENT GIVEN. NO ADVERSE REACTIONS NOTED. ALARMS SET AND AUDIBLE. AMBUBAG AND SPARE TRACH PRESENT. VENT CONNECTED TO RED OUTLET. WILL CONT TO MONITOR. Addendum: 12/05/19 at 2331 by GINETTE MAHONEY RT Amended: Links added.
[2019-12-05 20:29] VITALS: BP 154/80
[2019-12-06] MEDS: ALBUTEROL FS 2.5 MG/0.5 ML VIAL.NEB NEB SCH ×4 (02:04→20:09)
[2019-12-06] MEDS: IPRATROPIUM NEB FS 0.5 MG/2.5 ML AMPUL.NEB NEB SCH ×4 (02:04→20:09)
[2019-12-06] MEDS: LABETALOL HCL 300 MG TABLET GT SCH ×3 (04:57→21:03)
[2019-12-06] MEDS: hydrALAZINE HCL 25 MG TABLET GT SCH ×3 (04:57→21:03)
[2019-12-06] MEDS: METOCLOPRAMIDE HCL 10 MG/10 ML UDC GT SCH ×3 (04:57→21:03)
[2019-12-06] MEDS: CLONIDINE HCL 0.1 MG TABLET GT SCH ×3 (04:57→21:03)
[2019-12-06] MEDS: BLOOD SUGAR DIAGNOSTIC 1 EACH STRIP IN SCH ×4 (05:53→23:05)
[2019-12-06] MEDS: INSULIN ASPART/LISPRO 100 UNIT/ML CARTRIDGE SQ PRN ×4 (05:54→23:06)
[2019-12-06] MEDS: NEPRO 1,000 ML BOTTLE GT PRN (06:43)
[2019-12-06 07:17] LABS: BASOPHILS % (AUTO) 0.3 % (0.0-2.0); EOSINOPHILS % (AUTO) 15.7 % (0.0-6.0); HEMATOCRIT 22 % (39-51); HEMOGLOBIN 7.2 g/dL (13.5-17.5); LYMPHOCYTES # (AUTO) 1.2 /CMM (0.8-4.8); LYMPHOCYTES % (AUTO) 7.5 % (20.0-44.0); MEAN CORPUSCULAR HGB CONC 32 g/dl (31.0-36.0); MEAN CORPUSCULAR VOLUME 92 fL (80-96); MONOCYTES # (AUTO) 1.3 /CMM (0.1-1.30); MONOCYTES % (AUTO) 8.7 % (2.0-12.0); NEUTROPHILS # (AUTO) 10.5 /CMM (1.8-8.9); NEUTROPHILS % (AUTO) 67.8 % (43.0-81.0); PLATELET COUNT (AUTO) 160 /CMM (150-450); RED BLOOD CELL COUNT(AUTO) 2.42 MIL/uL (4.5-6.0); WHITE BLOOD COUNT (AUTO) 15.5 K/uL (4.3-11.0)
[2019-12-06 07:44] LABS: ALBUMIN 2.6 g/dL (3.4-5.0); BILIRUBIN,TOTAL 0.3 mg/dL (0.2-1.0); CALCIUM, SERUM 9.9 mg/dL (8.5-10.1); CREATININE 3.3 mg/dL (0.6-1.3); MAGNESIUM 2.4 mg/dL (1.8-2.4); PHOSPHORUS 3.7 mg/dL (2.5-4.9); POTASSIUM 4.5 mmol/L (3.5-5.1); TOTAL PROTEIN, SERUM 7.6 g/dL (6.4-8.2)
[2019-12-06 07:53] VITALS: BP 131/73
[2019-12-06] MEDS: HYDROGEN PEROXIDE 480 ML BOTTLE TP SCH ×2 (08:07→20:22)
[2019-12-06] MEDS: INSULIN GLARGINE SQ SCH ×2 (09:00→21:04)
[2019-12-06] MEDS: SITAGLIPTIN PHOSPHATE 50 MG TABLET GT SCH (09:00)
[2019-12-06] MEDS: FAMOTIDINE (20 MG) 20 MG TABLET GT SCH (09:00)
[2019-12-06] MEDS: ACETAMINOPHEN 650 MG/20 ML UDC- SA PATIENTS-PAIN ONLY GT SCH (09:00)
[2019-12-06] MEDS: LORATADINE 10 MG TABLET GT SCH (09:00)
[2019-12-06] MEDS: VIT B CMPLX 3/FA/VIT C/BIOTIN 1 TAB TABLET GT SCH (09:00)
[2019-12-06] MEDS: LACTOBACILLUS RHAMNOSUS GG 1 EACH CAP.SPRINK GT SCH ×2 (09:00→17:47)
[2019-12-06] MEDS: Z GUARD REMEDY 4 OZ OINT TP SCH ×2 (09:00→21:04)
[2019-12-06] MEDS: FERROUS SULFATE UDC 300 MG/5 ML UDC GT SCH (09:00)
[2019-12-06] MEDS: BASAGLAR SQ SCH ×2 (09:00→21:04)
[2019-12-06] MEDS: DOXAZOSIN MESYLATE (4 MG) 4 MG TABLET GT SCH ×2 (09:00→21:03)
[2019-12-06] MEDS: DOCUSATE SODIUM LIQ 100 MG/10 ML UDC GT SCH ×2 (09:00→21:03)
[2019-12-06] MEDS: LEVETIRACETAM SOL (5 ML) 100 MG/ML UDC GT SCH ×2 (09:00→21:03)
[2019-12-06] MEDS: ISOSORBIDE DINITRATE (20MG) 20 MG TABLET GT SCH ×3 (09:00→17:47)
[2019-12-06] MEDS: CHLORHEXIDINE GLUCONATE 15 ML UDC MM SCH (09:00)
[2019-12-06] MEDS: MINERAL OIL/PETROL OINT 396 GM JAR TP SCH ×2 (09:00→21:04)
[2019-12-06] MEDS: AMLODIPINE BESYLATE 10 MG TABLET GT SCH (09:00)
[2019-12-06] MEDS: MINOXIDIL (2.5MG) 2.5 MG TABLET GT SCH ×2 (09:00→17:48)
--- NOTE | 2019-12-06 09:37 | NUR ---
Seen and examined by Dr. Braun, no new order given.
--- NOTE | 2019-12-06 11:30 | NUR ---
Relayed urine culture result to Christophe Sesay NP with new order to start Diflucan 100mg via gt x 7 days for UTI (yeast)-started.
--- NOTE | 2019-12-06 12:25 | NUR ---
Dr. Treadwell reviewed lab results and CXR with new orders entered electronically CBC, CMP, Mg, Phos on 12/07/19. Resident stable, no signs of distress. Afebrile. F/C draining yellow colored urine, no hematuria noted. Denies pain/discomfort. Will continue to monitor.
[2019-12-06] MEDS: FLUCONAZOLE (100 MG) 100 MG TABLET GT SCH (12:46)
--- NOTE | 2019-12-06 14:34 | NUR ---
Intake Paperwork: Transportation Solutions Manager met with the resident's responsible democrat/Uncle, Keith Klein on 12/06/18 to complete initial admission paperwork: (Patient Right's Acknowledgement, Documentation of Preferred Intensity of Care, Conditions of Admission, CDPH Agreement, and Voluntary Prior Express Consent form). JOELLE provided patient's family with a copy of the Bill of Rights, patient information guide and [facility] resident and family guidelines. Keith wishes the resident be Full Code (CPR with maximum treatment). Admission paperwork was placed into the resident's chart. Transportation Solutions Manager educated Keith on advanced health care directive and conservatorship and provided Keith with informational packets. Keith, stated he is currently not looking to file for conservatorship. The patient is non-communicative and not oriented enough to complete advanced directive. Please see resident's previous account [id number] for all assessments and Quarterly information.
--- NOTE | 2019-12-06 17:35 | NUR ---
RT NOTE RECEIVED PATIENT ON TRACH WITH MECHANICAL VENTILATOR. TRACH IS PATENT AND SECURED. SPARE TRACH AND BVM IS AT BEDSIDE. ALARMS ARE SET AND AUDIBLE. VENTILATOR IS PLUGGED TO RED OUTLET. PATIENT IS IN SYNC AND COMFORTABLE WITH THE VENTILATOR. PATIENT HAS EQUAL CHEST RISE WITH COARSE BILATERAL BREATH SOUNDS. SUCTION MODERATE AMOUNT OF GREEN/YELLOW THICK SECRETIONS THROUGH OUT THE DAY. PATIENT TOLERATED Q6 BREATHING TREATMENTS WELL. NO SOB NOTED. Addendum: 12/06/19 at 1736 by DIA PIERRE RT Amended: Links added.
--- NOTE | 2019-12-06 18:47 | NUR ---
Dr. Braun ordered to place patient on Cool Aerosol on 12/08/19/ at 0800. ABG 1 hour post change on 12/08/19 at 0900.
[2019-12-06 20:09] VITALS: BP 127/50
--- NOTE | 2019-12-06 21:01 | NUR ---
RT NOTE PT RECEIVED TRACHED ON MECHANICAL VENTILATION. AWAKE/ALERT. AMBU BAG/BACK UP TRACH @ BEDSIDE. VENT PLUGGED TO RED OUTLET. ALARMS ON AND AUDIBLE. TX GIVEN, NO ADVERSE REACTIONS NOTED. SX DONE, TRACH SECURED AND PATENT. NO SOB NOTED AT THIS TIME. CONT. PULSE OX CONNECTED. WILL MONITOR T/O SHIFT. Addendum: 12/06/19 at 2103 by MEGHAN MEHTA RT Amended: Links added.
[2019-12-07] MEDS: IPRATROPIUM NEB FS 0.5 MG/2.5 ML AMPUL.NEB NEB SCH ×4 (02:10→20:19)
[2019-12-07] MEDS: ALBUTEROL FS 2.5 MG/0.5 ML VIAL.NEB NEB SCH ×4 (02:10→20:19)
[2019-12-07] MEDS: hydrALAZINE HCL 25 MG TABLET GT SCH ×3 (05:17→20:55)
[2019-12-07] MEDS: LABETALOL HCL 300 MG TABLET GT SCH ×3 (05:17→20:55)
[2019-12-07] MEDS: METOCLOPRAMIDE HCL 10 MG/10 ML UDC GT SCH ×3 (05:17→20:55)
[2019-12-07] MEDS: CLONIDINE HCL 0.1 MG TABLET GT SCH ×3 (05:17→20:55)
[2019-12-07] MEDS: BLOOD SUGAR DIAGNOSTIC 1 EACH STRIP IN SCH ×4 (06:08→23:23)
[2019-12-07] MEDS: INSULIN ASPART/LISPRO 100 UNIT/ML CARTRIDGE SQ PRN ×4 (06:09→23:24)
--- NOTE | 2019-12-07 07:26 | NUR ---
PT Received on vent support via trach on the following settings: CPAP 5, PS 12, 40%. Vent is plugged into with red outlet with alarm on and functioning. BS coarse rhonchi, suctioned moderate amount pale yellow secretions. Ambubag and trach at bedside Addendum: 12/07/19 at 1613 by MARTHA ARENAS RT Amended: Links added.
[2019-12-07 07:43] LABS: BASOPHILS # (AUTO) 0.1 /CMM (0.0-0.2); BASOPHILS % (AUTO) 0.4 % (0.0-2.0); EOSINOPHILS % (AUTO) 15.4 % (0.0-6.0); HEMATOCRIT 21 % (39-51); LYMPHOCYTES # (AUTO) 1.1 /CMM (0.8-4.8); LYMPHOCYTES % (AUTO) 7.4 % (20.0-44.0); MEAN CORPUSCULAR HGB CONC 31 g/dl (31.0-36.0); MEAN CORPUSCULAR VOLUME 91 fL (80-96); MONOCYTES # (AUTO) 1.2 /CMM (0.1-1.30); MONOCYTES % (AUTO) 8.6 % (2.0-12.0); NEUTROPHILS # (AUTO) 9.8 /CMM (1.8-8.9); NEUTROPHILS % (AUTO) 68.2 % (43.0-81.0); PLATELET COUNT (AUTO) 146 /CMM (150-450); RED BLOOD CELL COUNT(AUTO) 2.26 MIL/uL (4.5-6.0); WHITE BLOOD COUNT (AUTO) 14.3 K/uL (4.3-11.0)
[2019-12-07 08:04] VITALS: BP 159/76
[2019-12-07 08:07] LABS: HEMOGLOBIN 6.5 g/dL (13.5-17.5)
[2019-12-07 08:20] LABS: ALBUMIN 2.5 g/dL (3.4-5.0); BILIRUBIN,TOTAL 0.3 mg/dL (0.2-1.0); CALCIUM, SERUM 9.7 mg/dL (8.5-10.1); CREATININE 3.2 mg/dL (0.6-1.3); MAGNESIUM 2.3 mg/dL (1.8-2.4); POTASSIUM 4.9 mmol/L (3.5-5.1); TOTAL PROTEIN, SERUM 7.5 g/dL (6.4-8.2)
[2019-12-07 08:42] LABS: EOSINOPHILS % (MANUAL) 15 % (0-4); LYMPHOCYTES % (MANUAL) 9 % (16-48); MONOCYTES % (MANUAL) 8 % (0-11.0); NEUTROPHILS % (MANUAL) 68 (42-76)
--- NOTE | 2019-12-07 08:45 | NUR ---
Requested to page Dr. Treadwell, regional rehabilitation director for Dr. Valles to relay Hbg 6.5 and Hct 21. According to Janet from 's office she will page . Awaiting for MD to call back.
--- NOTE | 2019-12-07 08:53 | NUR ---
Dr. Treadwell returned the call and reported Hbg 6.5, Hct 21, he said that he will review the labs, CBC and BMP and will enter order in [employer].
[2019-12-07] MEDS: CHLORHEXIDINE GLUCONATE 15 ML UDC MM SCH (09:00)
[2019-12-07] MEDS: MINERAL OIL/PETROL OINT 396 GM JAR TP SCH ×2 (09:00→20:55)
[2019-12-07] MEDS: LACTOBACILLUS RHAMNOSUS GG 1 EACH CAP.SPRINK GT SCH ×2 (09:00→17:20)
[2019-12-07] MEDS: Z GUARD REMEDY 4 OZ OINT TP SCH ×2 (09:00→20:55)
[2019-12-07] MEDS: RETACRIT 10,000 UNITS SQ SCH (09:00)
[2019-12-07] MEDS: LORATADINE 10 MG TABLET GT SCH (09:00)
[2019-12-07] MEDS: DOCUSATE SODIUM LIQ 100 MG/10 ML UDC GT SCH ×2 (09:52→20:55)
[2019-12-07] MEDS: DOXAZOSIN MESYLATE (4 MG) 4 MG TABLET GT SCH ×2 (09:52→20:55)
[2019-12-07] MEDS: ISOSORBIDE DINITRATE (20MG) 20 MG TABLET GT SCH ×3 (09:53→17:20)
[2019-12-07] MEDS: VIT B CMPLX 3/FA/VIT C/BIOTIN 1 TAB TABLET GT SCH (09:53)
[2019-12-07] MEDS: FERROUS SULFATE UDC 300 MG/5 ML UDC GT SCH (09:53)
[2019-12-07] MEDS: ACETAMINOPHEN 650 MG/20 ML UDC- SA PATIENTS-PAIN ONLY GT SCH (09:53)
[2019-12-07] MEDS: FLUCONAZOLE (100 MG) 100 MG TABLET GT SCH (09:53)
[2019-12-07] MEDS: LEVETIRACETAM SOL (5 ML) 100 MG/ML UDC GT SCH ×2 (09:53→20:55)
[2019-12-07] MEDS: AMLODIPINE BESYLATE 10 MG TABLET GT SCH (09:53)
[2019-12-07] MEDS: MINOXIDIL (2.5MG) 2.5 MG TABLET GT SCH ×2 (09:53→17:20)
[2019-12-07] MEDS: SITAGLIPTIN PHOSPHATE 50 MG TABLET GT SCH (09:53)
[2019-12-07] MEDS: FAMOTIDINE (20 MG) 20 MG TABLET GT SCH (09:53)
[2019-12-07] MEDS: INSULIN GLARGINE SQ SCH ×2 (09:59→21:30)
[2019-12-07] MEDS: BASAGLAR SQ SCH ×2 (09:59→21:30)
--- NOTE | 2019-12-07 11:40 | NUR ---
Family Support group and IDT invitation: JOELLE contacted the pt.'s responsible democrat, Keith [phone] to invite the family to the Family Support group on 12/07/2019 11am and to the IDT plan of care conference on 12/09/2019 12:30pm-1:30pm. Per Keith he will not be able to attend to the family support group but will try to attend the IDT meeting. Noted. Addendum: 12/07/19 at 1546 by JOHN LAI Late entry for 12/05/2019*
[2019-12-07] MEDS: HYDROGEN PEROXIDE 480 ML BOTTLE TP SCH ×2 (13:22→20:21)
[2019-12-07] MEDS: NEPRO 1,000 ML BOTTLE GT PRN (17:23)
[2019-12-07 20:13] VITALS: BP 133/63
--- NOTE | 2019-12-07 21:01 | NUR ---
RT NOTE PT RECEIVED TRACHED ON MECHANICAL VENTILATION. VENT PLUGGED TO RED OUTLET. ALARMS ON AND AUDIBLE. AMBU BAG/BACK UP TRACH @ BEDSIDE. TX GIVEN, NO ADVERSE REACTIONS NOTED. SX DONE, TRACH SECURED AND PATENT. NO SOB NOTED. CONT. PULSE OX CONNECTED. WILL MONITOR. Addendum: 12/07/19 at 2101 by MEGHAN MEHTA RT Amended: Links added.
[2019-12-08] VITALS (7 sets, daily range): BP systolic 129–147; BP diastolic 63–73
[2019-12-08] MEDS: IPRATROPIUM NEB FS 0.5 MG/2.5 ML AMPUL.NEB NEB SCH ×4 (02:04→19:55)
[2019-12-08] MEDS: ALBUTEROL FS 2.5 MG/0.5 ML VIAL.NEB NEB SCH ×4 (02:04→19:55)
[2019-12-08] MEDS: METOCLOPRAMIDE HCL 10 MG/10 ML UDC GT SCH ×3 (05:02→20:09)
[2019-12-08] MEDS: LABETALOL HCL 300 MG TABLET GT SCH ×3 (05:02→20:09)
[2019-12-08] MEDS: hydrALAZINE HCL 25 MG TABLET GT SCH ×3 (05:02→20:08)
[2019-12-08] MEDS: CLONIDINE HCL 0.1 MG TABLET GT SCH ×3 (05:02→20:09)
[2019-12-08] MEDS: BLOOD SUGAR DIAGNOSTIC 1 EACH STRIP IN SCH ×4 (05:50→23:23)
[2019-12-08] MEDS: INSULIN ASPART/LISPRO 100 UNIT/ML CARTRIDGE SQ PRN ×4 (05:51→23:24)
[2019-12-08 07:03] LABS: BASOPHILS # (AUTO) 0.1 /CMM (0.0-0.2); BASOPHILS % (AUTO) 0.5 % (0.0-2.0); EOSINOPHILS % (AUTO) 18.9 % (0.0-6.0); HEMATOCRIT 21 % (39-51); LYMPHOCYTES # (AUTO) 1.1 /CMM (0.8-4.8); LYMPHOCYTES % (AUTO) 8.6 % (20.0-44.0); MEAN CORPUSCULAR HGB CONC 32 g/dl (31.0-36.0); MEAN CORPUSCULAR VOLUME 91 fL (80-96); MONOCYTES # (AUTO) 1.1 /CMM (0.1-1.30); MONOCYTES % (AUTO) 8.6 % (2.0-12.0); NEUTROPHILS # (AUTO) 7.7 /CMM (1.8-8.9); NEUTROPHILS % (AUTO) 63.4 % (43.0-81.0); PLATELET COUNT (AUTO) 138 /CMM (150-450); WHITE BLOOD COUNT (AUTO) 12.2 K/uL (4.3-11.0)
[2019-12-08 07:16] LABS: HEMOGLOBIN 6.7 g/dL (13.5-17.5)
[2019-12-08 07:34] LABS: ALBUMIN 2.6 g/dL (3.4-5.0); BILIRUBIN,TOTAL 0.3 mg/dL (0.2-1.0); CALCIUM, SERUM 9.9 mg/dL (8.5-10.1); CREATININE 3.3 mg/dL (0.6-1.3); MAGNESIUM 2.3 mg/dL (1.8-2.4); POTASSIUM 5.4 mmol/L (3.5-5.1); TOTAL PROTEIN, SERUM 7.6 g/dL (6.4-8.2)
--- NOTE | 2019-12-08 08:15 | NUR ---
RT PLACED PT ON COOL AEROSOL PER MD ORDER. HAYDE FISCHER NOTIFIED AND AWARE OF CHANGES. NO SIGNS OF DISTRESS NOTED AT THIS TIME. WILL CONTINUE TO MONITOR THE PATIENT CLOSELY FOR ANY CHANGE OF CONDITION. Addendum: 12/08/19 at 1719 by RAYMUNDO DICKERSON RT Amended: Links added.
--- NOTE | 2019-12-08 08:37 | NUR ---
Left message for Dr Treadwell regarding Hgb 6.7, K 5.4.
--- NOTE | 2019-12-08 08:45 | NUR ---
RT PLACED PT BACK ON VENT WITH PREVIOUS SETTINGS PER MD ORDER. SpO2 98%, HR 85. HAYDE AWARE. NO SOB NOTED. WILL CONTINUE TO MONITOR THE PATIENT. Addendum: 12/08/19 at 1719 by RAYMUNDO DICKERSON RT Amended: Links added.
[2019-12-08] MEDS: Z GUARD REMEDY 4 OZ OINT TP SCH ×2 (09:00→20:09)
[2019-12-08] MEDS: HYDROGEN PEROXIDE 480 ML BOTTLE TP SCH ×2 (09:00→21:02)
[2019-12-08] MEDS: MINERAL OIL/PETROL OINT 396 GM JAR TP SCH ×2 (09:00→20:09)
[2019-12-08] MEDS: LACTOBACILLUS RHAMNOSUS GG 1 EACH CAP.SPRINK GT SCH ×2 (09:11→17:57)
[2019-12-08] MEDS: DOCUSATE SODIUM LIQ 100 MG/10 ML UDC GT SCH ×2 (09:11→20:09)
[2019-12-08] MEDS: MINOXIDIL (2.5MG) 2.5 MG TABLET GT SCH ×2 (09:11→17:58)
[2019-12-08] MEDS: FERROUS SULFATE UDC 300 MG/5 ML UDC GT SCH (09:11)
[2019-12-08] MEDS: FAMOTIDINE (20 MG) 20 MG TABLET GT SCH (09:11)
[2019-12-08] MEDS: ISOSORBIDE DINITRATE (20MG) 20 MG TABLET GT SCH ×3 (09:11→17:58)
[2019-12-08] MEDS: LORATADINE 10 MG TABLET GT SCH (09:11)
[2019-12-08] MEDS: SITAGLIPTIN PHOSPHATE 50 MG TABLET GT SCH (09:11)
[2019-12-08] MEDS: LEVETIRACETAM SOL (5 ML) 100 MG/ML UDC GT SCH ×2 (09:11→20:09)
[2019-12-08] MEDS: VIT B CMPLX 3/FA/VIT C/BIOTIN 1 TAB TABLET GT SCH (09:11)
[2019-12-08] MEDS: FLUCONAZOLE (100 MG) 100 MG TABLET GT SCH (09:11)
[2019-12-08] MEDS: AMLODIPINE BESYLATE 10 MG TABLET GT SCH (09:11)
[2019-12-08] MEDS: DOXAZOSIN MESYLATE (4 MG) 4 MG TABLET GT SCH ×2 (09:11→20:08)
[2019-12-08] MEDS: INSULIN GLARGINE SQ SCH ×2 (09:12→20:20)
[2019-12-08] MEDS: ACETAMINOPHEN 650 MG/20 ML UDC- SA PATIENTS-PAIN ONLY GT SCH (09:12)
[2019-12-08] MEDS: CHLORHEXIDINE GLUCONATE 15 ML UDC MM SCH (09:12)
[2019-12-08] MEDS: BASAGLAR SQ SCH ×2 (09:12→20:20)
--- NOTE | 2019-12-08 09:20 | NUR ---
Notified Dr Braun that pt's Hgb 6.7 and primary MD was notified. Dr Braun ordered to hold placing pt on cool aerosol until Hgb is greater than 7.
--- NOTE | 2019-12-08 11:00 | NUR ---
Called Dr Treadwell's office to relay abnormal labs. Left message with Selena. She said she will page Dr Treadwell.
--- NOTE | 2019-12-08 11:39 | NUR ---
Dr Treadwell said he will enter orders for blood transfusion.
[2019-12-08 11:44] LABS: EOSINOPHILS % (MANUAL) 17 % (0-4); LYMPHOCYTES % (MANUAL) 15 % (16-48); MONOCYTES % (MANUAL) 9 % (0-11.0); NEUTROPHILS % (MANUAL) 59 (42-76)
--- NOTE | 2019-12-08 12:10 | NUR ---
Dr Treadwell ordered type and screen, labs, US kidney, blood transfusion of 1 unit PRBC. Pt's uncle Keith Klein gave consent.
[2019-12-08] MEDS: NEPRO 1,000 ML BOTTLE GT PRN (12:46)
--- NOTE | 2019-12-08 15:36 | NUR ---
Wheelchair Update: As requested by [facility] brewery representative, Arianna (reference#[id number]); JOELLE called [facility] [employer] and spoke to Benita to have pt.s evaluated by Pankaj to get authorization for Wheel Chair. Per Benita, she cannot schedule the pt. for evaluation however, she will send this information to their scheduling department. Per Benita, JOELLE should expect a call from [facility] scheduling department. Noted.
--- NOTE | 2019-12-08 16:18 | NUR ---
Started transfusing 1 unit of PRBC. Pt asleep but arousable with verbal and tactile stimuli. BP 130/63 HR 83 T 99.3 R 16 T 99.3 F.
--- NOTE | 2019-12-08 16:35 | NUR ---
Pt tolerating blood transfusion well. No adverse reactions noted. Pt woke up and asked for his eyeglasses, reached for his call light and changed TV channel.
--- NOTE | 2019-12-08 19:15 | NUR ---
Transfused 1 unit of PRBC. No adverse reactions noted.
--- NOTE | 2019-12-08 21:21 | NUR ---
Seen and examined by MAYRA Hoang no new orders. Made aware of the blood transfusion.
--- NOTE | 2019-12-08 21:50 | NUR ---
PT RECEIVE STABLE ON MV, SETTINGS ARE MODE CPAP, PS 12 +5 @ 30% FIO2, TRACH PATENT AND SECURED, VENT PLUG IN RED OUTLET, SPARE TRACH AND AMBU BAG IS AT BEDSIDE, WILL CONTINUE TO MONITOR Addendum: 12/08/19 at 2151 by GILBERT ROGERS RT Amended: Links added.
[2019-12-08 22:37] LABS: APPEARANCE,URINE SL CLOUDY (CLEAR); BILIRUBIN,URINE NEGATIVE (NEGATIVE); BLOOD, URINE TRACE-INTA Ery/uL (NEGATIVE); COLOR,URINE YELLOW (YELLOW); KETONES,URINE NEGATIVE (NEGATIVE); LEUKOCYTE ESTERASE ,URINE SMALL (NEGATIVE); NITRITE, URINE NEGATIVE (NEGATIVE); PH,URINE 6.5 (5.0-8.0); PROTEIN,URINE >=300 mg/dl (NEGATIVE); UGLUCOSE 500 MG/DL mg/dL (NEGATIVE); UROBILINOGEN,URINE 0.2 EU/dL (0.2)
[2019-12-08 22:49] LABS: BACTERIA,URINE Few /HPF (None Seen); SQUAMOUS EPITHELIAL CELL,UR Rare /HPF (None Seen); WBC,URINE TOO NUMEROUS TO COUN /HPF (0-3)
[2019-12-08 23:23] LABS: URINE TOTAL PROTEIN 663.8 mg/dL (0-11.9)
[2019-12-08 23:41] LABS: EOSINOPHIL,URINE Few
[2019-12-09] MEDS: IPRATROPIUM NEB FS 0.5 MG/2.5 ML AMPUL.NEB NEB SCH ×4 (01:39→19:47)
[2019-12-09] MEDS: ALBUTEROL FS 2.5 MG/0.5 ML VIAL.NEB NEB SCH ×4 (01:39→19:47)
[2019-12-09] MEDS: hydrALAZINE HCL 25 MG TABLET GT SCH ×3 (05:00→20:43)
[2019-12-09] MEDS: METOCLOPRAMIDE HCL 10 MG/10 ML UDC GT SCH ×3 (05:00→20:43)
[2019-12-09] MEDS: LABETALOL HCL 300 MG TABLET GT SCH ×3 (05:00→20:44)
[2019-12-09] MEDS: CLONIDINE HCL 0.1 MG TABLET GT SCH ×3 (05:00→20:43)
[2019-12-09] MEDS: BLOOD SUGAR DIAGNOSTIC 1 EACH STRIP IN SCH ×4 (06:04→23:46)
[2019-12-09] MEDS: INSULIN ASPART/LISPRO 100 UNIT/ML CARTRIDGE SQ PRN ×4 (06:04→23:47)
[2019-12-09] MEDS: BISACODYL SUPP (10 MG) 10 MG/SUPP.RECT SUPP.RECT RC PRN (06:11)
[2019-12-09 07:05] LABS: BASOPHILS % (AUTO) 0.3 % (0.0-2.0); EOSINOPHILS % (AUTO) 18.2 % (0.0-6.0); HEMATOCRIT 22 % (39-51); HEMOGLOBIN 7.4 g/dL (13.5-17.5); LYMPHOCYTES % (AUTO) 8.3 % (20.0-44.0); MEAN CORPUSCULAR HGB CONC 33 g/dl (31.0-36.0); MEAN CORPUSCULAR VOLUME 88 fL (80-96); MONOCYTES # (AUTO) 1.1 /CMM (0.1-1.30); MONOCYTES % (AUTO) 8.7 % (2.0-12.0); NEUTROPHILS # (AUTO) 7.9 /CMM (1.8-8.9); NEUTROPHILS % (AUTO) 64.5 % (43.0-81.0); PLATELET COUNT (AUTO) 136 /CMM (150-450); RED BLOOD CELL COUNT(AUTO) 2.53 MIL/uL (4.5-6.0); WHITE BLOOD COUNT (AUTO) 12.3 K/uL (4.3-11.0)
[2019-12-09 07:28] LABS: ALBUMIN 2.5 g/dL (3.4-5.0); BILIRUBIN,TOTAL 0.3 mg/dL (0.2-1.0); CREATININE 3.2 mg/dL (0.6-1.3); MAGNESIUM 2.3 mg/dL (1.8-2.4); PHOSPHORUS 4.2 mg/dL (2.5-4.9); TOTAL PROTEIN, SERUM 7.6 g/dL (6.4-8.2)
[2019-12-09 07:39] VITALS: BP 126/61
--- NOTE | 2019-12-09 08:57 | NUR ---
PT Received on vent support via trach on the following settings: CPAP 5, PS 12, 40%. Vent is plugged into with red outlet with alarm on and functioning. BS coarse rhonchi, suctioned moderate amount pale yellow secretions. Ambubag and trach at bedside Addendum: 12/09/19 at 0857 by MARTHA ARENAS RT Amended: Links added.
[2019-12-09] MEDS: LORATADINE 10 MG TABLET GT SCH (09:00)
[2019-12-09] MEDS: HYDROGEN PEROXIDE 480 ML BOTTLE TP SCH ×2 (09:00→21:10)
[2019-12-09] MEDS: FLUCONAZOLE (100 MG) 100 MG TABLET GT SCH (09:13)
[2019-12-09] MEDS: DOXAZOSIN MESYLATE (4 MG) 4 MG TABLET GT SCH ×2 (09:13→20:43)
[2019-12-09] MEDS: FERROUS SULFATE UDC 300 MG/5 ML UDC GT SCH (09:13)
[2019-12-09] MEDS: LACTOBACILLUS RHAMNOSUS GG 1 EACH CAP.SPRINK GT SCH ×2 (09:13→16:38)
[2019-12-09] MEDS: DOCUSATE SODIUM LIQ 100 MG/10 ML UDC GT SCH ×2 (09:13→20:43)
[2019-12-09] MEDS: SITAGLIPTIN PHOSPHATE 50 MG TABLET GT SCH (09:13)
[2019-12-09] MEDS: ISOSORBIDE DINITRATE (20MG) 20 MG TABLET GT SCH ×3 (09:13→16:39)
[2019-12-09] MEDS: VIT B CMPLX 3/FA/VIT C/BIOTIN 1 TAB TABLET GT SCH (09:14)
[2019-12-09] MEDS: LEVETIRACETAM SOL (5 ML) 100 MG/ML UDC GT SCH ×2 (09:14→20:43)
[2019-12-09] MEDS: FAMOTIDINE (20 MG) 20 MG TABLET GT SCH (09:14)
[2019-12-09] MEDS: AMLODIPINE BESYLATE 10 MG TABLET GT SCH (09:14)
[2019-12-09] MEDS: MINOXIDIL (2.5MG) 2.5 MG TABLET GT SCH ×2 (09:14→16:39)
[2019-12-09] MEDS: CHLORHEXIDINE GLUCONATE 15 ML UDC MM SCH (09:15)
[2019-12-09] MEDS: ACETAMINOPHEN 650 MG/20 ML UDC- SA PATIENTS-PAIN ONLY GT SCH (09:15)
[2019-12-09] MEDS: MINERAL OIL/PETROL OINT 396 GM JAR TP SCH ×2 (09:37→20:44)
[2019-12-09] MEDS: INSULIN GLARGINE SQ SCH ×2 (09:37→20:44)
[2019-12-09] MEDS: BASAGLAR SQ SCH ×2 (09:37→20:44)
[2019-12-09] MEDS: Z GUARD REMEDY 4 OZ OINT TP SCH ×2 (09:38→20:44)
[2019-12-09] MEDS: NEPRO 1,000 ML BOTTLE GT PRN (12:55)
--- NOTE | 2019-12-09 16:06 | NUR ---
INTERDISCIPLINARY PLAN OF CARE CONFERENCE took place today. The patients responsible republican/ Keith Klein and Millie Klein [phone] Braun and Interdisciplinary team discussed the plan of care in detail. Charge nurse discussed order for CBC to be done 12/13/2019. Dr. Braun answered all of the familys questions and informed family about unsuccessful attempts to wean the pt. off the ventilator. Current orders as well as treatments and medications were reviewed. Please see other disciplines IDT notes for further details.
[2019-12-09 16:51] LABS: OCCULT BLOOD STOOL NEGATIVE (NEGATIVE)
[2019-12-09 20:32] VITALS: BP 154/74
[2019-12-10 00:55] VITALS: BP 144/77
[2019-12-10] MEDS: IPRATROPIUM NEB FS 0.5 MG/2.5 ML AMPUL.NEB NEB SCH ×4 (01:38→20:01)
[2019-12-10] MEDS: ALBUTEROL FS 2.5 MG/0.5 ML VIAL.NEB NEB SCH ×4 (01:38→20:01)
[2019-12-10] MEDS: LABETALOL HCL 300 MG TABLET GT SCH ×3 (05:25→20:10)
[2019-12-10] MEDS: hydrALAZINE HCL 25 MG TABLET GT SCH ×3 (05:25→20:09)
[2019-12-10] MEDS: BLOOD SUGAR DIAGNOSTIC 1 EACH STRIP IN SCH ×4 (05:25→23:08)
[2019-12-10] MEDS: METOCLOPRAMIDE HCL 10 MG/10 ML UDC GT SCH ×3 (05:25→20:10)
[2019-12-10] MEDS: CLONIDINE HCL 0.1 MG TABLET GT SCH ×3 (05:25→20:10)
[2019-12-10] MEDS: INSULIN ASPART/LISPRO 100 UNIT/ML CARTRIDGE SQ PRN ×4 (05:26→23:10)
[2019-12-10 06:09] VITALS: BP 153/77
[2019-12-10 07:38] VITALS: BP 145/48
[2019-12-10] MEDS: HYDROGEN PEROXIDE 480 ML BOTTLE TP SCH ×2 (09:00→21:06)
[2019-12-10] MEDS: LORATADINE 10 MG TABLET GT SCH (09:02)
[2019-12-10] MEDS: DOCUSATE SODIUM LIQ 100 MG/10 ML UDC GT SCH ×2 (09:06→20:10)
[2019-12-10] MEDS: DOXAZOSIN MESYLATE (4 MG) 4 MG TABLET GT SCH ×2 (09:06→20:10)
[2019-12-10] MEDS: FERROUS SULFATE UDC 300 MG/5 ML UDC GT SCH (09:07)
[2019-12-10] MEDS: FLUCONAZOLE (100 MG) 100 MG TABLET GT SCH (09:07)
[2019-12-10] MEDS: SITAGLIPTIN PHOSPHATE 50 MG TABLET GT SCH (09:08)
[2019-12-10] MEDS: ISOSORBIDE DINITRATE (20MG) 20 MG TABLET GT SCH ×3 (09:08→17:10)
[2019-12-10] MEDS: LEVETIRACETAM SOL (5 ML) 100 MG/ML UDC GT SCH ×2 (09:08→20:10)
[2019-12-10] MEDS: MINOXIDIL (2.5MG) 2.5 MG TABLET GT SCH ×2 (09:09→17:10)
[2019-12-10] MEDS: AMLODIPINE BESYLATE 10 MG TABLET GT SCH (09:10)
[2019-12-10] MEDS: FAMOTIDINE (20 MG) 20 MG TABLET GT SCH (09:10)
[2019-12-10] MEDS: ACETAMINOPHEN 650 MG/20 ML UDC- SA PATIENTS-PAIN ONLY GT SCH (09:10)
[2019-12-10] MEDS: CHLORHEXIDINE GLUCONATE 15 ML UDC MM SCH (09:11)
[2019-12-10] MEDS: LACTOBACILLUS RHAMNOSUS GG 1 EACH CAP.SPRINK GT SCH ×2 (09:18→17:09)
[2019-12-10] MEDS: VIT B CMPLX 3/FA/VIT C/BIOTIN 1 TAB TABLET GT SCH (09:18)
[2019-12-10] MEDS: BASAGLAR SQ SCH ×2 (09:20→20:28)
[2019-12-10] MEDS: MINERAL OIL/PETROL OINT 396 GM JAR TP SCH ×2 (09:20→20:10)
[2019-12-10] MEDS: INSULIN GLARGINE SQ SCH ×2 (09:20→20:28)
[2019-12-10] MEDS: Z GUARD REMEDY 4 OZ OINT TP SCH ×2 (09:21→20:10)
[2019-12-10] MEDS: NEPRO 1,000 ML BOTTLE GT PRN (09:33)
[2019-12-10] MEDS: BISACODYL SUPP (10 MG) 10 MG/SUPP.RECT SUPP.RECT RC PRN (16:58)
[2019-12-10 19:50] VITALS: BP 150/54
[2019-12-10 22:32] LABS: OCCULT BLOOD STOOL NEGATIVE (NEGATIVE)
--- NOTE | 2019-12-10 23:00 | NUR ---
rn notes: stool specimen collected by general clerk, sent to lab. result of stool ob specimen #1 and #2 were both negative. md herman.
[2019-12-11 00:10] LABS: OCCULT BLOOD STOOL NEGATIVE (NEGATIVE)
[2019-12-11] MEDS: ALBUTEROL FS 2.5 MG/0.5 ML VIAL.NEB NEB SCH ×4 (01:46→19:53)
[2019-12-11] MEDS: IPRATROPIUM NEB FS 0.5 MG/2.5 ML AMPUL.NEB NEB SCH ×4 (01:46→19:53)
[2019-12-11] MEDS: CLONIDINE HCL 0.1 MG TABLET GT SCH ×3 (04:57→21:35)
[2019-12-11] MEDS: hydrALAZINE HCL 25 MG TABLET GT SCH ×3 (04:57→21:33)
[2019-12-11] MEDS: METOCLOPRAMIDE HCL 10 MG/10 ML UDC GT SCH ×3 (04:58→21:32)
[2019-12-11] MEDS: LABETALOL HCL 300 MG TABLET GT SCH ×3 (04:58→21:35)
[2019-12-11] MEDS: NEPRO 1,000 ML BOTTLE GT PRN (04:58)
[2019-12-11] MEDS: BLOOD SUGAR DIAGNOSTIC 1 EACH STRIP IN SCH ×3 (05:40→17:27)
[2019-12-11] MEDS: INSULIN ASPART/LISPRO 100 UNIT/ML CARTRIDGE SQ PRN ×3 (05:41→17:30)
[2019-12-11 06:17] VITALS: BP 147/76
[2019-12-11 07:40] VITALS: BP 141/80
[2019-12-11] MEDS: MINERAL OIL/PETROL OINT 396 GM JAR TP SCH ×2 (09:00→21:36)
[2019-12-11] MEDS: SITAGLIPTIN PHOSPHATE 50 MG TABLET GT SCH (09:00)
[2019-12-11] MEDS: LEVETIRACETAM SOL (5 ML) 100 MG/ML UDC GT SCH ×2 (09:00→21:30)
[2019-12-11] MEDS: ACETAMINOPHEN 650 MG/20 ML UDC- SA PATIENTS-PAIN ONLY GT SCH (09:00)
[2019-12-11] MEDS: DOCUSATE SODIUM LIQ 100 MG/10 ML UDC GT SCH ×2 (09:00→21:30)
[2019-12-11] MEDS: AMLODIPINE BESYLATE 10 MG TABLET GT SCH (09:00)
[2019-12-11] MEDS: VIT B CMPLX 3/FA/VIT C/BIOTIN 1 TAB TABLET GT SCH (09:00)
[2019-12-11] MEDS: FAMOTIDINE (20 MG) 20 MG TABLET GT SCH (09:00)
[2019-12-11] MEDS: FLUCONAZOLE (100 MG) 100 MG TABLET GT SCH (09:00)
[2019-12-11] MEDS: ISOSORBIDE DINITRATE (20MG) 20 MG TABLET GT SCH ×3 (09:00→16:40)
[2019-12-11] MEDS: Z GUARD REMEDY 4 OZ OINT TP SCH ×2 (09:00→21:36)
[2019-12-11] MEDS: FERROUS SULFATE UDC 300 MG/5 ML UDC GT SCH (09:00)
[2019-12-11] MEDS: MINOXIDIL (2.5MG) 2.5 MG TABLET GT SCH ×2 (09:00→16:41)
[2019-12-11] MEDS: LORATADINE 10 MG TABLET GT SCH (09:00)
[2019-12-11] MEDS: LACTOBACILLUS RHAMNOSUS GG 1 EACH CAP.SPRINK GT SCH ×2 (09:00→16:40)
[2019-12-11] MEDS: CHLORHEXIDINE GLUCONATE 15 ML UDC MM SCH (09:00)
[2019-12-11] MEDS: DOXAZOSIN MESYLATE (4 MG) 4 MG TABLET GT SCH ×2 (09:00→21:34)
[2019-12-11] MEDS: BASAGLAR SQ SCH ×2 (09:00→21:49)
[2019-12-11] MEDS: INSULIN GLARGINE SQ SCH ×2 (09:00→21:49)
[2019-12-11] MEDS: HYDROGEN PEROXIDE 480 ML BOTTLE TP SCH ×2 (10:53→21:36)
--- NOTE | 2019-12-11 16:14 | NUR ---
RT NOTE: PATIENT RECEIVED TRACHED ON MECHANICAL VENT. ALARMS VERIFIED AND AUDIBLE. SUCTIONED AND LAVAGED SMALL-MODERATE AMOUNT OF THICK MCCLOUD SECRETIONS. VENT PLUGGED INTO RED OUTLET. AMBU BAG AND NEW TRACH AT [facility].
[2019-12-11 19:49] VITALS: BP 158/75
--- NOTE | 2019-12-11 19:54 | NUR ---
RT pt received on current vent settings. trached with portex 7. vent plugged in to red outlet. alarms on and audible. ambu bag at head of bed. spare trach at bedside. no current respiratory distress. will continue to monitor. Addendum: 12/12/19 at 0425 by MEHDI HAUSER RT Amended: Links added.
--- NOTE | 2019-12-11 22:00 | NUR ---
RN NOTES ACCUCHECK BG 131. ADMINISTERED LANTUS 10UN PER SCHEDULED DOSE.
--- NOTE | 2019-12-12 | NUR ---
RN NOTES ACCUCHECK BG 160. ADMINISTERED 3UN OF INSULIN PER SLIDING SCALE.
[2019-12-12] MEDS: BLOOD SUGAR DIAGNOSTIC 1 EACH STRIP IN SCH ×5 (00:04→23:21)
[2019-12-12] MEDS: INSULIN ASPART/LISPRO 100 UNIT/ML CARTRIDGE SQ PRN ×4 (00:10→23:23)
[2019-12-12] MEDS: ALBUTEROL FS 2.5 MG/0.5 ML VIAL.NEB NEB SCH ×4 (02:21→20:22)
[2019-12-12] MEDS: IPRATROPIUM NEB FS 0.5 MG/2.5 ML AMPUL.NEB NEB SCH ×4 (02:21→20:22)
[2019-12-12] MEDS: CLONIDINE HCL 0.1 MG TABLET GT SCH ×3 (05:21→21:00)
[2019-12-12] MEDS: LABETALOL HCL 300 MG TABLET GT SCH ×3 (05:21→21:00)
[2019-12-12] MEDS: hydrALAZINE HCL 25 MG TABLET GT SCH ×3 (05:21→20:48)
[2019-12-12] MEDS: METOCLOPRAMIDE HCL 10 MG/10 ML UDC GT SCH ×3 (05:21→20:48)
--- NOTE | 2019-12-12 06:00 | NUR ---
RN NOTES ACCUCHECK BG 121. NO INSULIN COVERAGE NEEDED AT THIS TIME.
[2019-12-12] MEDS: NEPRO 1,000 ML BOTTLE GT PRN (06:50)
[2019-12-12 07:54] VITALS: BP 136/67
--- NOTE | 2019-12-12 08:18 | NUR ---
PT Received on vent support via trach on the following settings: CPAP 5, PS 12, 40%. Vent is plugged into with red outlet with alarm on and functioning. BS coarse rhonchi, suctioned moderate amount pale yellow secretions. Ambubag and trach at bedside Addendum: 12/12/19 at 0818 by MARTHA ARENAS RT Amended: Links added.
[2019-12-12] MEDS: MINERAL OIL/PETROL OINT 396 GM JAR TP SCH ×2 (09:00→21:27)
[2019-12-12] MEDS: Z GUARD REMEDY 4 OZ OINT TP SCH ×2 (09:00→21:27)
[2019-12-12] MEDS: BASAGLAR SQ SCH ×2 (09:00→20:40)
[2019-12-12] MEDS: INSULIN GLARGINE SQ SCH ×2 (09:00→20:40)
[2019-12-12] MEDS: HYDROGEN PEROXIDE 480 ML BOTTLE TP SCH ×2 (09:00→21:27)
[2019-12-12] MEDS: LACTOBACILLUS RHAMNOSUS GG 1 EACH CAP.SPRINK GT SCH ×2 (09:41→16:48)
[2019-12-12] MEDS: FLUCONAZOLE (100 MG) 100 MG TABLET GT SCH (09:41)
[2019-12-12] MEDS: DOCUSATE SODIUM LIQ 100 MG/10 ML UDC GT SCH ×2 (09:41→21:00)
[2019-12-12] MEDS: LORATADINE 10 MG TABLET GT SCH (09:41)
[2019-12-12] MEDS: DOXAZOSIN MESYLATE (4 MG) 4 MG TABLET GT SCH ×2 (09:41→20:48)
[2019-12-12] MEDS: ISOSORBIDE DINITRATE (20MG) 20 MG TABLET GT SCH ×3 (09:42→16:50)
[2019-12-12] MEDS: FERROUS SULFATE UDC 300 MG/5 ML UDC GT SCH (09:42)
[2019-12-12] MEDS: VIT B CMPLX 3/FA/VIT C/BIOTIN 1 TAB TABLET GT SCH (09:42)
[2019-12-12] MEDS: LEVETIRACETAM SOL (5 ML) 100 MG/ML UDC GT SCH ×2 (09:42→20:48)
[2019-12-12] MEDS: SITAGLIPTIN PHOSPHATE 50 MG TABLET GT SCH (09:42)
[2019-12-12] MEDS: MINOXIDIL (2.5MG) 2.5 MG TABLET GT SCH ×2 (09:42→16:50)
[2019-12-12] MEDS: AMLODIPINE BESYLATE 10 MG TABLET GT SCH (09:43)
[2019-12-12] MEDS: FAMOTIDINE (20 MG) 20 MG TABLET GT SCH (09:43)
[2019-12-12] MEDS: ACETAMINOPHEN 650 MG/20 ML UDC- SA PATIENTS-PAIN ONLY GT SCH (09:43)
[2019-12-12] MEDS: CHLORHEXIDINE GLUCONATE 15 ML UDC MM SCH (09:44)
--- NOTE | 2019-12-12 13:05 | NUR ---
Seen by MAYRA Hoang. Pt asked to drink water. Informed MAYRA Hoang that pt is currently NPO. She ordered speech evaluation. She said pt used to always to eat (she knows pt from the other facility).
[2019-12-12 20:45] VITALS: BP 145/75
--- NOTE | 2019-12-12 20:50 | NUR ---
RN NOTES: BLOOD SUGAR THIS EVENING WAS 175. 10 UNITS OF LANTUS WAS ADMINISTERED. PT ON G TUBE FEEDING. WILL CONTINUE TO MONITOR.
--- NOTE | 2019-12-12 23:26 | NUR ---
RN NOTES: BLOOD SUGAR WAS 177. 3 UNITS OF INSULIN ADMINISTERED. PT ON G TUBE FEEDING. WILL CONTINUE TO MONITOR.
[2019-12-13 00:43] VITALS: BP 141/69
[2019-12-13] MEDS: NEPRO 1,000 ML BOTTLE GT PRN ×2 (01:01→22:01)
[2019-12-13] MEDS: ALBUTEROL FS 2.5 MG/0.5 ML VIAL.NEB NEB SCH ×4 (01:41→19:39)
[2019-12-13] MEDS: IPRATROPIUM NEB FS 0.5 MG/2.5 ML AMPUL.NEB NEB SCH ×4 (01:41→19:39)
[2019-12-13 04:54] VITALS: BP 149/73
[2019-12-13] MEDS: METOCLOPRAMIDE HCL 10 MG/10 ML UDC GT SCH ×3 (04:58→21:16)
[2019-12-13] MEDS: CLONIDINE HCL 0.1 MG TABLET GT SCH ×3 (04:58→21:16)
[2019-12-13] MEDS: hydrALAZINE HCL 25 MG TABLET GT SCH ×3 (04:58→21:15)
[2019-12-13] MEDS: LABETALOL HCL 300 MG TABLET GT SCH ×3 (04:58→21:16)
[2019-12-13] MEDS: BLOOD SUGAR DIAGNOSTIC 1 EACH STRIP IN SCH ×4 (05:04→23:21)
[2019-12-13] MEDS: INSULIN ASPART/LISPRO 100 UNIT/ML CARTRIDGE SQ PRN ×4 (05:17→23:23)
[2019-12-13 07:37] LABS: BASOPHILS # (AUTO) 0.1 /CMM (0.0-0.2); BASOPHILS % (AUTO) 0.7 % (0.0-2.0); EOSINOPHILS % (AUTO) 14.7 % (0.0-6.0); HEMATOCRIT 23 % (39-51); HEMOGLOBIN 7.3 g/dL (13.5-17.5); LYMPHOCYTES # (AUTO) 1.2 /CMM (0.8-4.8); LYMPHOCYTES % (AUTO) 9.2 % (20.0-44.0); MEAN CORPUSCULAR HGB CONC 33 g/dl (31.0-36.0); MEAN CORPUSCULAR VOLUME 90 fL (80-96); MONOCYTES # (AUTO) 1.2 /CMM (0.1-1.30); MONOCYTES % (AUTO) 8.9 % (2.0-12.0); NEUTROPHILS # (AUTO) 8.7 /CMM (1.8-8.9); NEUTROPHILS % (AUTO) 66.5 % (43.0-81.0); PLATELET COUNT (AUTO) 156 /CMM (150-450); WHITE BLOOD COUNT (AUTO) 13.1 K/uL (4.3-11.0)
[2019-12-13 07:54] LABS: CALCIUM, SERUM 10.2 mg/dL (8.5-10.1); CREATININE 3.1 mg/dL (0.6-1.3); MAGNESIUM 2.3 mg/dL (1.8-2.4); PHOSPHORUS 3.9 mg/dL (2.5-4.9); POTASSIUM 6.1 mmol/L (3.5-5.1)
[2019-12-13] MEDS: HYDROGEN PEROXIDE 480 ML BOTTLE TP SCH ×2 (08:23→21:00)
[2019-12-13] MEDS: FERROUS SULFATE UDC 300 MG/5 ML UDC GT SCH (09:00)
[2019-12-13] MEDS: BASAGLAR SQ SCH ×2 (09:00→21:19)
[2019-12-13] MEDS: MINERAL OIL/PETROL OINT 396 GM JAR TP SCH ×2 (09:00→21:19)
[2019-12-13] MEDS: FAMOTIDINE (20 MG) 20 MG TABLET GT SCH (09:00)
[2019-12-13] MEDS: ISOSORBIDE DINITRATE (20MG) 20 MG TABLET GT SCH ×3 (09:00→17:24)
[2019-12-13] MEDS: CHLORHEXIDINE GLUCONATE 15 ML UDC MM SCH (09:00)
[2019-12-13] MEDS: ACETAMINOPHEN 650 MG/20 ML UDC- SA PATIENTS-PAIN ONLY GT SCH (09:00)
[2019-12-13] MEDS: INSULIN GLARGINE SQ SCH ×2 (09:00→21:19)
[2019-12-13] MEDS: LORATADINE 10 MG TABLET GT SCH (09:00)
[2019-12-13] MEDS: DOCUSATE SODIUM LIQ 100 MG/10 ML UDC GT SCH ×2 (09:00→21:16)
[2019-12-13] MEDS: Z GUARD REMEDY 4 OZ OINT TP SCH ×2 (09:00→21:19)
[2019-12-13] MEDS: DOXAZOSIN MESYLATE (4 MG) 4 MG TABLET GT SCH ×2 (09:00→21:15)
[2019-12-13] MEDS: LEVETIRACETAM SOL (5 ML) 100 MG/ML UDC GT SCH ×2 (09:00→21:16)
[2019-12-13] MEDS: VIT B CMPLX 3/FA/VIT C/BIOTIN 1 TAB TABLET GT SCH (09:00)
[2019-12-13] MEDS: SITAGLIPTIN PHOSPHATE 50 MG TABLET GT SCH (09:00)
[2019-12-13] MEDS: AMLODIPINE BESYLATE 10 MG TABLET GT SCH (09:00)
[2019-12-13] MEDS: LACTOBACILLUS RHAMNOSUS GG 1 EACH CAP.SPRINK GT SCH ×2 (09:00→17:23)
[2019-12-13] MEDS: MINOXIDIL (2.5MG) 2.5 MG TABLET GT SCH ×2 (09:00→17:24)
[2019-12-13] MEDS: FLUCONAZOLE (100 MG) 100 MG TABLET GT SCH (09:00)
--- NOTE | 2019-12-13 09:00 | NUR ---
Notified Dr Treadwell that potassium level is 6.1. He said he will review pt's labs.
--- NOTE | 2019-12-13 09:30 | NUR ---
Seen by Dr Braun. Relayed lab results to him and informed him that Dr Treadwell said he will review labs.
[2019-12-13 11:43] VITALS: BP 122/40
--- NOTE | 2019-12-13 16:37 | NUR ---
Left message for Dr Treadwell reminding him to review pt's labs, K 6.1.
--- NOTE | 2019-12-13 16:38 | NUR ---
RT NOTE RECEIVED PATIENT ON TRACH WITH MECHANICAL VENTILATOR. TRACH IS PATENT AND SECURED. SPARE TRACH AND BVM IS AT BEDSIDE. ALARMS ARE SET AND AUDIBLE. VENTILATOR IS PLUGGED TO RED OUTLET. PATIENT IS IN SYNC AND COMFORTABLE WITH THE VENTILATOR. PATIENT HAS EQUAL CHEST RISE WITH COARSE BILATERAL BREATH SOUNDS. SUCTION SMALL AMOUNT OF GREEN THICK SECRETIONS THROUGH OUT THE DAY. PATIENT TOLERATED Q6 BREATHING TREATMENTS WELL. NO SOB NOTED. Addendum: 12/13/19 at 1638 by DIA PIERRE RT Amended: Links added.
--- NOTE | 2019-12-13 17:51 | NUR ---
Asked Dr Braun if he can review pt's labs since Dr Treadwell still has not given orders. He said he will take care of it.
--- NOTE | 2019-12-13 18:15 | NUR ---
Dr Braun order to increase water flushes from 400 mL to 600 mL via GT q 4 hours, give Kayexalate 30 gm via GT x 1, and repeat Chem 7 in AM.
[2019-12-13] MEDS ORDERED: SODIUM POLYSTYRENE SULFONATE 15 G/60 ML BOTTLE GT ONE (19:30)
[2019-12-13 20:33] VITALS: BP 141/60
[2019-12-13] MEDS ORDERED: IV D5W 1,000 ML IV PRN (22:33)
--- NOTE | 2019-12-13 22:36 | NUR ---
RN NOTES Received orders from Dr. Treadwell via EMAR, D5W @110ml/hr IV x1 liter, Kayexalte 30gm via GT x1, Lasix 40mg via GT x1. Noted Kayexalate 30mg via gt order was already given earlier per Dr. Braun's orders. Called answering service to verify orders with MD. Received new orders from Dr. Day to D/C Kayexalate 30gm GT, D/C lasix 40mg GT, d/c D5W @ 100ml/hr, noted and carried out.
[2019-12-13] MEDS ORDERED: SODIUM POLYSTYRENE SULFONATE 15 G/60 ML BOTTLE PO ONE (23:00)
[2019-12-13] MEDS ORDERED: FUROSEMIDE SOLN 40 MG/5 ML UDC GT ONE (23:00)
[2019-12-14 00:14] VITALS: BP 140/68
[2019-12-14] MEDS: IPRATROPIUM NEB FS 0.5 MG/2.5 ML AMPUL.NEB NEB SCH ×4 (01:34→19:14)
[2019-12-14] MEDS: ALBUTEROL FS 2.5 MG/0.5 ML VIAL.NEB NEB SCH ×4 (01:34→19:14)
[2019-12-14] MEDS: hydrALAZINE HCL 25 MG TABLET GT SCH ×3 (05:10→20:45)
[2019-12-14] MEDS: CLONIDINE HCL 0.1 MG TABLET GT SCH ×3 (05:10→20:46)
[2019-12-14] MEDS: METOCLOPRAMIDE HCL 10 MG/10 ML UDC GT SCH ×3 (05:10→20:46)
[2019-12-14] MEDS: LABETALOL HCL 300 MG TABLET GT SCH ×3 (05:11→20:46)
[2019-12-14] MEDS: BLOOD SUGAR DIAGNOSTIC 1 EACH STRIP IN SCH ×4 (05:44→23:46)
[2019-12-14] MEDS: INSULIN ASPART/LISPRO 100 UNIT/ML CARTRIDGE SQ PRN ×4 (05:46→23:48)
[2019-12-14 06:35] VITALS: BP 143/73
[2019-12-14 07:37] LABS: BASOPHILS # (AUTO) 0.1 /CMM (0.0-0.2); BASOPHILS % (AUTO) 0.5 % (0.0-2.0); EOSINOPHILS % (AUTO) 14.2 % (0.0-6.0); HEMATOCRIT 23 % (39-51); HEMOGLOBIN 7.3 g/dL (13.5-17.5); LYMPHOCYTES # (AUTO) 1.1 /CMM (0.8-4.8); LYMPHOCYTES % (AUTO) 7.8 % (20.0-44.0); MEAN CORPUSCULAR HGB CONC 32 g/dl (31.0-36.0); MEAN CORPUSCULAR VOLUME 91 fL (80-96); MONOCYTES # (AUTO) 1.1 /CMM (0.1-1.30); MONOCYTES % (AUTO) 7.8 % (2.0-12.0); NEUTROPHILS # (AUTO) 9.7 /CMM (1.8-8.9); NEUTROPHILS % (AUTO) 69.7 % (43.0-81.0); PLATELET COUNT (AUTO) 158 /CMM (150-450); RED BLOOD CELL COUNT(AUTO) 2.51 MIL/uL (4.5-6.0); WHITE BLOOD COUNT (AUTO) 13.9 K/uL (4.3-11.0)
[2019-12-14 08:13] LABS: ALBUMIN 2.7 g/dL (3.4-5.0); BILIRUBIN,TOTAL 0.3 mg/dL (0.2-1.0); CREATININE 3.1 mg/dL (0.6-1.3); MAGNESIUM 2.2 mg/dL (1.8-2.4); POTASSIUM 5.2 mmol/L (3.5-5.1); TOTAL PROTEIN, SERUM 7.7 g/dL (6.4-8.2)
--- NOTE | 2019-12-14 08:50 | NUR ---
Informed Dr. Schafer that his orders to give IVF of D5W, Lasix 40mg, and Kayexalate was discontinued by Dr. Tracy Day last night when the nurse clarified with her. Dr. Braun gave an order for Kayexalate and increase free water flush to 600 cc/hr Q 6 hours due to elevated Na+. CBC and BMP (Na+ 156) Mg and Phos level collected today reported to JIN HunterO given, he is in agreement with the order given by Dr. Braun.
[2019-12-14] MEDS: FAMOTIDINE (20 MG) 20 MG TABLET GT SCH (09:00)
[2019-12-14] MEDS: VIT B CMPLX 3/FA/VIT C/BIOTIN 1 TAB TABLET GT SCH (09:00)
[2019-12-14] MEDS: LORATADINE 10 MG TABLET GT SCH (09:00)
[2019-12-14] MEDS: LACTOBACILLUS RHAMNOSUS GG 1 EACH CAP.SPRINK GT SCH ×2 (09:00→17:15)
[2019-12-14] MEDS: DOXAZOSIN MESYLATE (4 MG) 4 MG TABLET GT SCH ×2 (09:00→20:46)
[2019-12-14] MEDS: MINERAL OIL/PETROL OINT 396 GM JAR TP SCH ×2 (09:00→20:49)
[2019-12-14] MEDS: BASAGLAR SQ SCH ×2 (09:00→20:48)
[2019-12-14] MEDS: SITAGLIPTIN PHOSPHATE 50 MG TABLET GT SCH (09:00)
[2019-12-14] MEDS: MINOXIDIL (2.5MG) 2.5 MG TABLET GT SCH ×2 (09:00→17:15)
[2019-12-14] MEDS: DOCUSATE SODIUM LIQ 100 MG/10 ML UDC GT SCH ×2 (09:00→20:46)
[2019-12-14] MEDS: FERROUS SULFATE UDC 300 MG/5 ML UDC GT SCH (09:00)
[2019-12-14] MEDS: HYDROGEN PEROXIDE 480 ML BOTTLE TP SCH ×2 (09:00→20:10)
[2019-12-14] MEDS: RETACRIT 10,000 UNITS SQ SCH (09:00)
[2019-12-14] MEDS: LEVETIRACETAM SOL (5 ML) 100 MG/ML UDC GT SCH ×2 (09:00→20:46)
[2019-12-14] MEDS: INSULIN GLARGINE SQ SCH ×2 (09:00→20:48)
[2019-12-14] MEDS: AMLODIPINE BESYLATE 10 MG TABLET GT SCH (09:00)
[2019-12-14] MEDS: ISOSORBIDE DINITRATE (20MG) 20 MG TABLET GT SCH ×3 (09:00→17:15)
[2019-12-14] MEDS: CHLORHEXIDINE GLUCONATE 15 ML UDC MM SCH (09:00)
[2019-12-14] MEDS: Z GUARD REMEDY 4 OZ OINT TP SCH ×2 (09:00→20:49)
[2019-12-14] MEDS: ACETAMINOPHEN 650 MG/20 ML UDC- SA PATIENTS-PAIN ONLY GT SCH (09:00)
[2019-12-14 12:02] VITALS: BP 143/50
--- NOTE | 2019-12-14 15:55 | NUR ---
RT NOTE PT RECEIVED TRACHED ON MECHANICAL VENTILATION. AMBU BAG/BACK UP TRACH @ BEDSIDE. VENT PLUGGED TO RED OUTLET. ALARMS ON AND AUDIBLE. TX GIVEN, NO ADVERSE REACTIONS NOTED. SX DONE, TRACH SECURED AND PATENT. NO SOB NOTED AT THIS TIME. CONT. PULSE OX CONNECTED. WILL MONITOR T/O SHIFT. Addendum: 12/14/19 at 1701 by ABHIJIT DEE RT Amended: Links added.
--- NOTE | 2019-12-14 19:53 | NUR ---
PT Received on vent support via trach on the following settings: CPAP 5, PS 12, 40%. Vent is plugged into with red outlet with alarm on and functioning. BS coarse rhonchi, suctioned moderate amount pale yellow secretions. Ambubag and trach at bedside Addendum: 12/14/19 at 1952 by MARTHA ARENAS RT Amended: Links added.
[2019-12-14] MEDS: NEPRO 1,000 ML BOTTLE GT PRN (20:51)
[2019-12-14 21:55] VITALS: BP 150/75
[2019-12-15 00:05] VITALS: BP 141/65
[2019-12-15] MEDS: ALBUTEROL FS 2.5 MG/0.5 ML VIAL.NEB NEB SCH ×4 (01:24→20:14)
[2019-12-15] MEDS: IPRATROPIUM NEB FS 0.5 MG/2.5 ML AMPUL.NEB NEB SCH ×4 (01:24→20:14)
[2019-12-15] MEDS: METOCLOPRAMIDE HCL 10 MG/10 ML UDC GT SCH ×3 (05:55→21:27)
[2019-12-15] MEDS: LABETALOL HCL 300 MG TABLET GT SCH ×3 (05:55→21:28)
[2019-12-15] MEDS: hydrALAZINE HCL 25 MG TABLET GT SCH ×3 (05:56→21:27)
[2019-12-15] MEDS: CLONIDINE HCL 0.1 MG TABLET GT SCH ×3 (05:56→21:27)
[2019-12-15 06:09] VITALS: BP 150/72
[2019-12-15] MEDS: BLOOD SUGAR DIAGNOSTIC 1 EACH STRIP IN SCH ×4 (06:10→23:38)
[2019-12-15] MEDS: INSULIN ASPART/LISPRO 100 UNIT/ML CARTRIDGE SQ PRN ×3 (06:12→23:39)
[2019-12-15 07:41] VITALS: BP 122/54
[2019-12-15] MEDS: HYDROGEN PEROXIDE 480 ML BOTTLE TP SCH ×2 (09:20→20:14)
[2019-12-15] MEDS: DOXAZOSIN MESYLATE (4 MG) 4 MG TABLET GT SCH ×2 (09:25→21:27)
[2019-12-15] MEDS: LEVETIRACETAM SOL (5 ML) 100 MG/ML UDC GT SCH ×2 (09:26→21:27)
[2019-12-15] MEDS: AMLODIPINE BESYLATE 10 MG TABLET GT SCH (09:26)
[2019-12-15] MEDS: SITAGLIPTIN PHOSPHATE 50 MG TABLET GT SCH (09:26)
[2019-12-15] MEDS: LACTOBACILLUS RHAMNOSUS GG 1 EACH CAP.SPRINK GT SCH ×2 (09:26→17:00)
[2019-12-15] MEDS: FERROUS SULFATE UDC 300 MG/5 ML UDC GT SCH (09:26)
[2019-12-15] MEDS: LORATADINE 10 MG TABLET GT SCH (09:26)
[2019-12-15] MEDS: FAMOTIDINE (20 MG) 20 MG TABLET GT SCH (09:26)
[2019-12-15] MEDS: VIT B CMPLX 3/FA/VIT C/BIOTIN 1 TAB TABLET GT SCH (09:26)
[2019-12-15] MEDS: MINOXIDIL (2.5MG) 2.5 MG TABLET GT SCH ×2 (09:26→17:00)
[2019-12-15] MEDS: DOCUSATE SODIUM LIQ 100 MG/10 ML UDC GT SCH ×2 (09:26→21:27)
[2019-12-15] MEDS: ISOSORBIDE DINITRATE (20MG) 20 MG TABLET GT SCH ×3 (09:26→17:00)
[2019-12-15] MEDS: ACETAMINOPHEN 650 MG/20 ML UDC- SA PATIENTS-PAIN ONLY GT SCH (09:27)
[2019-12-15] MEDS: CHLORHEXIDINE GLUCONATE 15 ML UDC MM SCH (09:27)
[2019-12-15] MEDS: Z GUARD REMEDY 4 OZ OINT TP SCH ×2 (09:28→21:29)
[2019-12-15] MEDS: MINERAL OIL/PETROL OINT 396 GM JAR TP SCH ×2 (09:28→21:28)
[2019-12-15] MEDS: INSULIN GLARGINE SQ SCH ×2 (09:45→21:28)
[2019-12-15] MEDS: BASAGLAR SQ SCH ×2 (09:45→21:28)
[2019-12-15 12:00] VITALS: BP 133/63
--- NOTE | 2019-12-15 14:30 | NUR ---
[facility] called. Pt's Retacrit will be delivered on 12/20/18.
[2019-12-15 18:00] VITALS: BP 141/68
[2019-12-15] MEDS: NEPRO 1,000 ML BOTTLE GT PRN (18:17)
[2019-12-15 20:51] VITALS: BP 128/67
--- NOTE | 2019-12-15 21:29 | NUR ---
PT RECEIVE STABLE ON MV, SETTINGS ARE CPAP PS 12 +5 , TRACH PATENT AND SECURED, SPARE TRACH AND AMBU BAG IS AT BEDSIDE, VENT IS PLUG IN RED OUTLET, ALARMS ARE ON AND AUDIBLE, WILL CONTINUE TO MONITOR Addendum: 12/15/19 at 2130 by GILBERT ROGERS RT Amended: Links added.
[2019-12-16] VITALS: BP 139/70
[2019-12-16] MEDS: ALBUTEROL FS 2.5 MG/0.5 ML VIAL.NEB NEB SCH ×4 (02:16→20:04)
[2019-12-16] MEDS: IPRATROPIUM NEB FS 0.5 MG/2.5 ML AMPUL.NEB NEB SCH ×4 (02:16→20:04)
[2019-12-16] MEDS: hydrALAZINE HCL 25 MG TABLET GT SCH ×3 (05:46→21:46)
[2019-12-16] MEDS: CLONIDINE HCL 0.1 MG TABLET GT SCH ×3 (05:47→21:47)
[2019-12-16] MEDS: BLOOD SUGAR DIAGNOSTIC 1 EACH STRIP IN SCH ×4 (05:47→23:46)
[2019-12-16] MEDS: METOCLOPRAMIDE HCL 10 MG/10 ML UDC GT SCH ×3 (05:47→21:47)
[2019-12-16] MEDS: LABETALOL HCL 300 MG TABLET GT SCH ×3 (05:47→21:47)
[2019-12-16] MEDS: INSULIN ASPART/LISPRO 100 UNIT/ML CARTRIDGE SQ PRN ×4 (05:50→23:48)
[2019-12-16 06:00] VITALS: BP 150/71
[2019-12-16] MEDS: HYDROGEN PEROXIDE 480 ML BOTTLE TP SCH ×2 (07:20→21:11)
[2019-12-16 07:58] VITALS: BP 139/66
[2019-12-16] MEDS: MINERAL OIL/PETROL OINT 396 GM JAR TP SCH ×2 (09:00→21:48)
[2019-12-16] MEDS: Z GUARD REMEDY 4 OZ OINT TP SCH ×2 (09:00→21:48)
[2019-12-16] MEDS: LORATADINE 10 MG TABLET GT SCH (09:52)
[2019-12-16] MEDS: FERROUS SULFATE UDC 300 MG/5 ML UDC GT SCH (09:52)
[2019-12-16] MEDS: LACTOBACILLUS RHAMNOSUS GG 1 EACH CAP.SPRINK GT SCH ×2 (09:52→17:28)
[2019-12-16] MEDS: DOCUSATE SODIUM LIQ 100 MG/10 ML UDC GT SCH ×2 (09:52→21:47)
[2019-12-16] MEDS: DOXAZOSIN MESYLATE (4 MG) 4 MG TABLET GT SCH ×2 (09:52→21:46)
[2019-12-16] MEDS: ACETAMINOPHEN 650 MG/20 ML UDC- SA PATIENTS-PAIN ONLY GT SCH (09:53)
[2019-12-16] MEDS: LEVETIRACETAM SOL (5 ML) 100 MG/ML UDC GT SCH ×2 (09:53→21:47)
[2019-12-16] MEDS: SITAGLIPTIN PHOSPHATE 50 MG TABLET GT SCH (09:53)
[2019-12-16] MEDS: AMLODIPINE BESYLATE 10 MG TABLET GT SCH (09:53)
[2019-12-16] MEDS: ISOSORBIDE DINITRATE (20MG) 20 MG TABLET GT SCH ×3 (09:53→17:28)
[2019-12-16] MEDS: VIT B CMPLX 3/FA/VIT C/BIOTIN 1 TAB TABLET GT SCH (09:53)
[2019-12-16] MEDS: CHLORHEXIDINE GLUCONATE 15 ML UDC MM SCH (09:53)
[2019-12-16] MEDS: FAMOTIDINE (20 MG) 20 MG TABLET GT SCH (09:53)
[2019-12-16] MEDS: MINOXIDIL (2.5MG) 2.5 MG TABLET GT SCH ×2 (09:53→17:28)
[2019-12-16] MEDS: BASAGLAR SQ SCH ×2 (09:54→21:48)
[2019-12-16] MEDS: INSULIN GLARGINE SQ SCH ×2 (09:54→21:48)
[2019-12-16 12:05] VITALS: BP 145/69
--- NOTE | 2019-12-16 16:29 | NUR ---
RT NOTE: RECEIVED PT ON ORDERED NOTED VENT SETTINGS. NO RESPIRATORY DISTRESS NOTED. TRACH CHECKED SECURE AND PATENT. SXD AND LAVAGE PT Q ROUND AND NEEDED. TXS GIVEN ORDERED WITH NO ADVERSE REACTIONS NOTED. TRACH CARE DONE. SPARE TRACH AND AMBU BAG @ BEDSIDE. ALARMS ON AND AUDIBLE . VENT PLUGGED INTO RED OUTLET.
[2019-12-16] MEDS: NEPRO 1,000 ML BOTTLE GT PRN (17:18)
--- NOTE | 2019-12-16 18:00 | NUR ---
Resident noted to have R antecubital open skin with new order to apply triple ATB Q shift. Order carried out.
[2019-12-16 18:30] VITALS: BP 135/67
[2019-12-16 20:23] VITALS: BP 149/75
[2019-12-16] MEDS: BACI/NEOM/POLY B OINT PKT 1 UDPKT PACKET TP SCH (21:48)
[2019-12-17 00:21] VITALS: BP 150/79
[2019-12-17] MEDS: IPRATROPIUM NEB FS 0.5 MG/2.5 ML AMPUL.NEB NEB SCH ×4 (01:56→19:40)
[2019-12-17] MEDS: ALBUTEROL FS 2.5 MG/0.5 ML VIAL.NEB NEB SCH ×4 (01:56→19:40)
[2019-12-17] MEDS: hydrALAZINE HCL 25 MG TABLET GT SCH ×3 (05:18→21:41)
[2019-12-17] MEDS: CLONIDINE HCL 0.1 MG TABLET GT SCH ×3 (05:19→21:42)
[2019-12-17] MEDS: METOCLOPRAMIDE HCL 10 MG/10 ML UDC GT SCH ×3 (05:19→21:42)
[2019-12-17] MEDS: LABETALOL HCL 300 MG TABLET GT SCH ×3 (05:19→21:42)
[2019-12-17] MEDS: BLOOD SUGAR DIAGNOSTIC 1 EACH STRIP IN SCH ×3 (05:52→17:33)
[2019-12-17] MEDS: INSULIN ASPART/LISPRO 100 UNIT/ML CARTRIDGE SQ PRN ×3 (05:53→17:35)
[2019-12-17 06:21] VITALS: BP 155/77
[2019-12-17] MEDS: NEPRO 1,000 ML BOTTLE GT PRN (07:11)
[2019-12-17 08:02] VITALS: BP 145/71
[2019-12-17] MEDS: ACETAMINOPHEN 650 MG/20 ML UDC- SA PATIENTS-PAIN ONLY GT SCH (09:00)
[2019-12-17] MEDS: ISOSORBIDE DINITRATE (20MG) 20 MG TABLET GT SCH ×3 (09:00→17:32)
[2019-12-17] MEDS: AMLODIPINE BESYLATE 10 MG TABLET GT SCH (09:00)
[2019-12-17] MEDS: BACI/NEOM/POLY B OINT PKT 1 UDPKT PACKET TP SCH ×2 (09:00→21:43)
[2019-12-17] MEDS: BASAGLAR SQ SCH ×2 (09:00→21:43)
[2019-12-17] MEDS: LEVETIRACETAM SOL (5 ML) 100 MG/ML UDC GT SCH ×2 (09:00→21:42)
[2019-12-17] MEDS: LORATADINE 10 MG TABLET GT SCH (09:00)
[2019-12-17] MEDS: DOCUSATE SODIUM LIQ 100 MG/10 ML UDC GT SCH ×2 (09:00→21:42)
[2019-12-17] MEDS: MINERAL OIL/PETROL OINT 396 GM JAR TP SCH ×2 (09:00→21:43)
[2019-12-17] MEDS: MINOXIDIL (2.5MG) 2.5 MG TABLET GT SCH ×2 (09:00→17:33)
[2019-12-17] MEDS: INSULIN GLARGINE SQ SCH ×2 (09:00→21:43)
[2019-12-17] MEDS: VIT B CMPLX 3/FA/VIT C/BIOTIN 1 TAB TABLET GT SCH (09:00)
[2019-12-17] MEDS: FERROUS SULFATE UDC 300 MG/5 ML UDC GT SCH (09:00)
[2019-12-17] MEDS: DOXAZOSIN MESYLATE (4 MG) 4 MG TABLET GT SCH ×2 (09:00→21:41)
[2019-12-17] MEDS: Z GUARD REMEDY 4 OZ OINT TP SCH ×2 (09:00→21:43)
[2019-12-17] MEDS: FAMOTIDINE (20 MG) 20 MG TABLET GT SCH (09:00)
[2019-12-17] MEDS: SITAGLIPTIN PHOSPHATE 50 MG TABLET GT SCH (09:00)
[2019-12-17] MEDS: LACTOBACILLUS RHAMNOSUS GG 1 EACH CAP.SPRINK GT SCH ×2 (09:00→17:32)
[2019-12-17] MEDS: CHLORHEXIDINE GLUCONATE 15 ML UDC MM SCH (09:00)
[2019-12-17] MEDS: HYDROGEN PEROXIDE 480 ML BOTTLE TP SCH ×2 (09:37→21:15)
[2019-12-17 12:00] VITALS: BP 136/70
[2019-12-17 18:00] VITALS: BP 134/66
--- NOTE | 2019-12-17 20:07 | NUR ---
PT Received on vent support via trach on the following settings: CPAP 5, PS 12, 40%. Vent is plugged into with red outlet with alarm on and functioning. BS coarse rhonchi, suctioned moderate amount pale yellow secretions. Ambubag and trach at bedside Addendum: 12/17/19 at 2007 by MARTHA ARENAS RT Amended: Links added.
[2019-12-17 20:32] VITALS: BP 139/64
[2019-12-18] VITALS: BP 135/70
[2019-12-18] MEDS: BLOOD SUGAR DIAGNOSTIC 1 EACH STRIP IN SCH ×4 (00:20→17:41)
[2019-12-18] MEDS: INSULIN ASPART/LISPRO 100 UNIT/ML CARTRIDGE SQ PRN ×4 (00:21→17:43)
[2019-12-18] MEDS: IPRATROPIUM NEB FS 0.5 MG/2.5 ML AMPUL.NEB NEB SCH ×4 (00:39→19:56)
[2019-12-18] MEDS: ALBUTEROL FS 2.5 MG/0.5 ML VIAL.NEB NEB SCH ×4 (00:39→19:56)
[2019-12-18] MEDS: METOCLOPRAMIDE HCL 10 MG/10 ML UDC GT SCH ×3 (05:41→21:40)
[2019-12-18] MEDS: hydrALAZINE HCL 25 MG TABLET GT SCH ×3 (05:41→21:40)
[2019-12-18] MEDS: CLONIDINE HCL 0.1 MG TABLET GT SCH ×3 (05:41→21:40)
[2019-12-18] MEDS: LABETALOL HCL 300 MG TABLET GT SCH ×3 (05:43→21:40)
[2019-12-18 06:00] VITALS: BP 140/72
[2019-12-18 07:35] VITALS: BP 124/50
[2019-12-18] MEDS: HYDROGEN PEROXIDE 480 ML BOTTLE TP SCH ×2 (08:26→21:00)
[2019-12-18] MEDS: DOXAZOSIN MESYLATE (4 MG) 4 MG TABLET GT SCH ×2 (09:29→21:40)
[2019-12-18] MEDS: DOCUSATE SODIUM LIQ 100 MG/10 ML UDC GT SCH ×2 (09:29→21:40)
[2019-12-18] MEDS: LORATADINE 10 MG TABLET GT SCH (09:29)
[2019-12-18] MEDS: LACTOBACILLUS RHAMNOSUS GG 1 EACH CAP.SPRINK GT SCH ×2 (09:29→17:41)
[2019-12-18] MEDS: SITAGLIPTIN PHOSPHATE 50 MG TABLET GT SCH (09:30)
[2019-12-18] MEDS: LEVETIRACETAM SOL (5 ML) 100 MG/ML UDC GT SCH ×2 (09:30→21:40)
[2019-12-18] MEDS: FAMOTIDINE (20 MG) 20 MG TABLET GT SCH (09:30)
[2019-12-18] MEDS: MINOXIDIL (2.5MG) 2.5 MG TABLET GT SCH ×2 (09:30→17:41)
[2019-12-18] MEDS: FERROUS SULFATE UDC 300 MG/5 ML UDC GT SCH (09:30)
[2019-12-18] MEDS: ISOSORBIDE DINITRATE (20MG) 20 MG TABLET GT SCH ×3 (09:30→17:41)
[2019-12-18] MEDS: AMLODIPINE BESYLATE 10 MG TABLET GT SCH (09:30)
[2019-12-18] MEDS: VIT B CMPLX 3/FA/VIT C/BIOTIN 1 TAB TABLET GT SCH (09:30)
[2019-12-18] MEDS: ACETAMINOPHEN 650 MG/20 ML UDC- SA PATIENTS-PAIN ONLY GT SCH (09:31)
[2019-12-18] MEDS: CHLORHEXIDINE GLUCONATE 15 ML UDC MM SCH (09:31)
[2019-12-18] MEDS: INSULIN GLARGINE SQ SCH ×2 (09:31→21:41)
[2019-12-18] MEDS: BASAGLAR SQ SCH ×2 (09:31→21:41)
[2019-12-18] MEDS: MINERAL OIL/PETROL OINT 396 GM JAR TP SCH ×2 (09:32→21:41)
[2019-12-18] MEDS: Z GUARD REMEDY 4 OZ OINT TP SCH ×2 (09:32→21:41)
[2019-12-18] MEDS: BACI/NEOM/POLY B OINT PKT 1 UDPKT PACKET TP SCH ×2 (09:34→21:41)
[2019-12-18] MEDS: NEPRO 1,000 ML BOTTLE GT PRN (12:45)
[2019-12-18 14:41] VITALS: BP 128/61
[2019-12-18 18:03] VITALS: BP 137/69
[2019-12-18] MEDS: BISACODYL SUPP (10 MG) 10 MG/SUPP.RECT SUPP.RECT RC PRN (18:51)
[2019-12-19] VITALS: BP 134/69
[2019-12-19] MEDS: BLOOD SUGAR DIAGNOSTIC 1 EACH STRIP IN SCH ×4 (00:07→18:31)
[2019-12-19] MEDS: INSULIN ASPART/LISPRO 100 UNIT/ML CARTRIDGE SQ PRN ×4 (00:09→18:32)
[2019-12-19] MEDS: ALBUTEROL FS 2.5 MG/0.5 ML VIAL.NEB NEB SCH ×4 (01:58→19:38)
[2019-12-19] MEDS: IPRATROPIUM NEB FS 0.5 MG/2.5 ML AMPUL.NEB NEB SCH ×4 (01:58→19:38)
[2019-12-19] MEDS: hydrALAZINE HCL 25 MG TABLET GT SCH ×3 (05:45→21:47)
[2019-12-19] MEDS: METOCLOPRAMIDE HCL 10 MG/10 ML UDC GT SCH ×3 (05:45→21:47)
[2019-12-19] MEDS: CLONIDINE HCL 0.1 MG TABLET GT SCH ×3 (05:45→21:47)
[2019-12-19] MEDS: LABETALOL HCL 300 MG TABLET GT SCH ×3 (05:46→21:47)
[2019-12-19 06:00] VITALS: BP 151/76
[2019-12-19 08:05] VITALS: BP 118/49
[2019-12-19] MEDS: FAMOTIDINE (20 MG) 20 MG TABLET GT SCH (09:00)
[2019-12-19] MEDS: CHLORHEXIDINE GLUCONATE 15 ML UDC MM SCH (09:00)
[2019-12-19] MEDS: MINOXIDIL (2.5MG) 2.5 MG TABLET GT SCH ×2 (09:00→17:00)
[2019-12-19] MEDS: FERROUS SULFATE UDC 300 MG/5 ML UDC GT SCH (09:00)
[2019-12-19] MEDS: LORATADINE 10 MG TABLET GT SCH (09:00)
[2019-12-19] MEDS: VIT B CMPLX 3/FA/VIT C/BIOTIN 1 TAB TABLET GT SCH (09:00)
[2019-12-19] MEDS: AMLODIPINE BESYLATE 10 MG TABLET GT SCH (09:00)
[2019-12-19] MEDS: DOXAZOSIN MESYLATE (4 MG) 4 MG TABLET GT SCH ×2 (09:00→21:47)
[2019-12-19] MEDS: ISOSORBIDE DINITRATE (20MG) 20 MG TABLET GT SCH ×3 (09:00→17:00)
[2019-12-19] MEDS: BACI/NEOM/POLY B OINT PKT 1 UDPKT PACKET TP SCH ×2 (09:00→21:49)
[2019-12-19] MEDS: Z GUARD REMEDY 4 OZ OINT TP SCH ×2 (09:00→21:49)
[2019-12-19] MEDS: LEVETIRACETAM SOL (5 ML) 100 MG/ML UDC GT SCH ×2 (09:00→21:47)
[2019-12-19] MEDS: BASAGLAR SQ SCH ×2 (09:00→21:48)
[2019-12-19] MEDS: SITAGLIPTIN PHOSPHATE 50 MG TABLET GT SCH (09:00)
[2019-12-19] MEDS: LACTOBACILLUS RHAMNOSUS GG 1 EACH CAP.SPRINK GT SCH ×2 (09:00→17:00)
[2019-12-19] MEDS: INSULIN GLARGINE SQ SCH ×2 (09:00→21:48)
[2019-12-19] MEDS: MINERAL OIL/PETROL OINT 396 GM JAR TP SCH ×2 (09:00→21:48)
[2019-12-19] MEDS: DOCUSATE SODIUM LIQ 100 MG/10 ML UDC GT SCH ×2 (09:00→21:47)
--- NOTE | 2019-12-19 09:05 | NUR ---
Asked Dr Treadwell if he wanted to increase Retacrit since he is documenting it in his notes. He said increasing Retacrit is gradual and he is not changing the dose at this time.
[2019-12-19] MEDS: HYDROGEN PEROXIDE 480 ML BOTTLE TP SCH ×2 (09:35→21:00)
[2019-12-19] MEDS: ACETAMINOPHEN 650 MG/20 ML UDC- SA PATIENTS-PAIN ONLY GT SCH (11:00)
[2019-12-19 12:00] VITALS: BP 148/68
--- NOTE | 2019-12-19 15:08 | NUR ---
Family Invitation to IDT: JOELLE called and invited the pt.s family [phone] to attend the next IDT meeting taking place 12/23/2019 between 12:30pm to 1:30pm. The patient s uncle, Keith Klein stated that they would "try to attend".
[2019-12-19 18:00] VITALS: BP 141/68
[2019-12-19 20:09] VITALS: BP 125/59
[2019-12-20] MEDS: BLOOD SUGAR DIAGNOSTIC 1 EACH STRIP IN SCH ×5 (00:14→23:12)
[2019-12-20] MEDS: INSULIN ASPART/LISPRO 100 UNIT/ML CARTRIDGE SQ PRN ×5 (00:15→23:13)
[2019-12-20 00:27] VITALS: BP 134/70
[2019-12-20] MEDS: ALBUTEROL FS 2.5 MG/0.5 ML VIAL.NEB NEB SCH ×4 (00:55→19:26)
[2019-12-20] MEDS: IPRATROPIUM NEB FS 0.5 MG/2.5 ML AMPUL.NEB NEB SCH ×4 (00:55→19:26)
[2019-12-20] MEDS: hydrALAZINE HCL 25 MG TABLET GT SCH ×3 (05:01→21:28)
[2019-12-20] MEDS: CLONIDINE HCL 0.1 MG TABLET GT SCH ×3 (05:01→21:33)
[2019-12-20] MEDS: METOCLOPRAMIDE HCL 10 MG/10 ML UDC GT SCH ×3 (05:01→21:33)
[2019-12-20] MEDS: LABETALOL HCL 300 MG TABLET GT SCH ×3 (05:02→21:33)
[2019-12-20 06:54] VITALS: BP 130/78
[2019-12-20] MEDS: HYDROGEN PEROXIDE 480 ML BOTTLE TP SCH ×2 (07:43→21:14)
[2019-12-20 08:08] VITALS: BP 129/62
[2019-12-20] MEDS: AMLODIPINE BESYLATE 10 MG TABLET GT SCH (08:38)
[2019-12-20] MEDS: FERROUS SULFATE UDC 300 MG/5 ML UDC GT SCH (08:38)
[2019-12-20] MEDS: SITAGLIPTIN PHOSPHATE 50 MG TABLET GT SCH (08:38)
[2019-12-20] MEDS: ISOSORBIDE DINITRATE (20MG) 20 MG TABLET GT SCH ×3 (08:38→17:04)
[2019-12-20] MEDS: MINOXIDIL (2.5MG) 2.5 MG TABLET GT SCH ×2 (08:38→17:04)
[2019-12-20] MEDS: LORATADINE 10 MG TABLET GT SCH (08:39)
[2019-12-20] MEDS: LACTOBACILLUS RHAMNOSUS GG 1 EACH CAP.SPRINK GT SCH ×2 (08:39→17:04)
[2019-12-20] MEDS: FAMOTIDINE (20 MG) 20 MG TABLET GT SCH (08:39)
[2019-12-20] MEDS: LEVETIRACETAM SOL (5 ML) 100 MG/ML UDC GT SCH ×2 (08:39→21:33)
[2019-12-20] MEDS: DOCUSATE SODIUM LIQ 100 MG/10 ML UDC GT SCH ×2 (08:39→21:33)
[2019-12-20] MEDS: DOXAZOSIN MESYLATE (4 MG) 4 MG TABLET GT SCH ×2 (08:39→21:28)
[2019-12-20] MEDS: VIT B CMPLX 3/FA/VIT C/BIOTIN 1 TAB TABLET GT SCH (08:39)
[2019-12-20] MEDS: ACETAMINOPHEN 650 MG/20 ML UDC- SA PATIENTS-PAIN ONLY GT SCH (08:40)
[2019-12-20] MEDS: INSULIN GLARGINE SQ SCH ×2 (08:41→21:34)
[2019-12-20] MEDS: BASAGLAR SQ SCH ×2 (08:41→21:34)
[2019-12-20] MEDS: CHLORHEXIDINE GLUCONATE 15 ML UDC MM SCH (08:42)
[2019-12-20] MEDS: MINERAL OIL/PETROL OINT 396 GM JAR TP SCH ×2 (09:00→21:34)
[2019-12-20] MEDS: Z GUARD REMEDY 4 OZ OINT TP SCH ×2 (09:00→21:34)
[2019-12-20] MEDS: BACI/NEOM/POLY B OINT PKT 1 UDPKT PACKET TP SCH ×2 (09:00→21:34)
[2019-12-20 12:00] VITALS: BP 130/70
[2019-12-20] MEDS: NEPRO 1,000 ML BOTTLE GT PRN (12:31)
[2019-12-20 18:00] VITALS: BP 126/63
[2019-12-20] MEDS: BISACODYL SUPP (10 MG) 10 MG/SUPP.RECT SUPP.RECT RC PRN (18:58)
[2019-12-20 20:06] VITALS: BP 140/73
[2019-12-21 00:54] VITALS: BP 128/74
[2019-12-21] MEDS: IPRATROPIUM NEB FS 0.5 MG/2.5 ML AMPUL.NEB NEB SCH ×4 (01:16→22:22)
[2019-12-21] MEDS: ALBUTEROL FS 2.5 MG/0.5 ML VIAL.NEB NEB SCH ×4 (01:16→22:22)
[2019-12-21] MEDS: CLONIDINE HCL 0.1 MG TABLET GT SCH ×3 (05:08→21:06)
[2019-12-21] MEDS: METOCLOPRAMIDE HCL 10 MG/10 ML UDC GT SCH ×3 (05:08→21:06)
[2019-12-21] MEDS: hydrALAZINE HCL 25 MG TABLET GT SCH ×3 (05:08→21:05)
[2019-12-21] MEDS: LABETALOL HCL 300 MG TABLET GT SCH ×3 (05:09→21:06)
[2019-12-21] MEDS: BLOOD SUGAR DIAGNOSTIC 1 EACH STRIP IN SCH ×4 (06:00→23:42)
[2019-12-21] MEDS: INSULIN ASPART/LISPRO 100 UNIT/ML CARTRIDGE SQ PRN ×4 (06:01→23:44)
[2019-12-21 06:16] LABS: BASOPHILS # (AUTO) 0.1 /CMM (0.0-0.2); BASOPHILS % (AUTO) 0.3 % (0.0-2.0); EOSINOPHILS % (AUTO) 9.5 % (0.0-6.0); HEMATOCRIT 23 % (39-51); HEMOGLOBIN 7.5 g/dL (13.5-17.5); LYMPHOCYTES % (AUTO) 6.6 % (20.0-44.0); MEAN CORPUSCULAR HGB CONC 32 g/dl (31.0-36.0); MEAN CORPUSCULAR VOLUME 89 fL (80-96); MONOCYTES # (AUTO) 1.3 /CMM (0.1-1.30); MONOCYTES % (AUTO) 8.6 % (2.0-12.0); NEUTROPHILS # (AUTO) 11.4 /CMM (1.8-8.9); PLATELET COUNT (AUTO) 203 /CMM (150-450); RED BLOOD CELL COUNT(AUTO) 2.59 MIL/uL (4.5-6.0); WHITE BLOOD COUNT (AUTO) 15.2 K/uL (4.3-11.0)
[2019-12-21 06:25] VITALS: BP 136/76
[2019-12-21 06:40] LABS: ALBUMIN 2.7 g/dL (3.4-5.0); BILIRUBIN,TOTAL 0.2 mg/dL (0.2-1.0); CALCIUM, SERUM 10.4 mg/dL (8.5-10.1); CREATININE 3.7 mg/dL (0.6-1.3); MAGNESIUM 2.3 mg/dL (1.8-2.4); PHOSPHORUS 5.2 mg/dL (2.5-4.9); POTASSIUM 5.5 mmol/L (3.5-5.1)
[2019-12-21 07:53] VITALS: BP 123/43
--- NOTE | 2019-12-21 07:56 | NUR ---
PT Received on vent support via trach on the following settings: CPAP 5, PS 12, 40%. Vent is plugged into with red outlet with alarm on and functioning. BS coarse rhonchi, suctioned moderate amount pale yellow secretions. Ambubag and trach at bedside Addendum: 12/21/19 at 0756 by MARTHA ARENAS RT Amended: Links added.
[2019-12-21] MEDS: HYDROGEN PEROXIDE 480 ML BOTTLE TP SCH ×2 (08:11→22:05)
[2019-12-21] MEDS: SITAGLIPTIN PHOSPHATE 50 MG TABLET GT SCH (09:00)
[2019-12-21] MEDS: RETACRIT 10,000 UNITS SQ SCH (09:00)
[2019-12-21] MEDS: MINOXIDIL (2.5MG) 2.5 MG TABLET GT SCH ×2 (09:00→17:59)
[2019-12-21] MEDS: FAMOTIDINE (20 MG) 20 MG TABLET GT SCH (09:00)
[2019-12-21] MEDS: VIT B CMPLX 3/FA/VIT C/BIOTIN 1 TAB TABLET GT SCH (09:00)
[2019-12-21] MEDS: CHLORHEXIDINE GLUCONATE 15 ML UDC MM SCH (09:00)
[2019-12-21] MEDS: MINERAL OIL/PETROL OINT 396 GM JAR TP SCH ×2 (09:00→21:07)
[2019-12-21] MEDS: BASAGLAR SQ SCH ×2 (09:00→21:07)
[2019-12-21] MEDS: LORATADINE 10 MG TABLET GT SCH (09:00)
[2019-12-21] MEDS: BACI/NEOM/POLY B OINT PKT 1 UDPKT PACKET TP SCH ×2 (09:00→21:07)
[2019-12-21] MEDS: INSULIN GLARGINE SQ SCH ×2 (09:00→21:07)
[2019-12-21] MEDS: Z GUARD REMEDY 4 OZ OINT TP SCH ×2 (09:00→21:07)
[2019-12-21] MEDS: DOXAZOSIN MESYLATE (4 MG) 4 MG TABLET GT SCH ×2 (09:00→21:05)
[2019-12-21] MEDS: FERROUS SULFATE UDC 300 MG/5 ML UDC GT SCH (09:00)
[2019-12-21] MEDS: LACTOBACILLUS RHAMNOSUS GG 1 EACH CAP.SPRINK GT SCH ×2 (09:00→17:54)
[2019-12-21] MEDS: ISOSORBIDE DINITRATE (20MG) 20 MG TABLET GT SCH ×3 (09:00→17:59)
[2019-12-21] MEDS: LEVETIRACETAM SOL (5 ML) 100 MG/ML UDC GT SCH ×2 (09:00→21:06)
[2019-12-21] MEDS: DOCUSATE SODIUM LIQ 100 MG/10 ML UDC GT SCH ×2 (09:00→21:06)
[2019-12-21] MEDS: AMLODIPINE BESYLATE 10 MG TABLET GT SCH (09:00)
[2019-12-21] MEDS: ACETAMINOPHEN 650 MG/20 ML UDC- SA PATIENTS-PAIN ONLY GT SCH (09:00)
[2019-12-21] MEDS: NEPRO 1,000 ML BOTTLE GT PRN (11:07)
[2019-12-21 12:00] VITALS: BP 148/71
[2019-12-21 18:28] VITALS: BP 140/68
[2019-12-22 00:20] VITALS: BP 135/64
[2019-12-22] MEDS: IPRATROPIUM NEB FS 0.5 MG/2.5 ML AMPUL.NEB NEB SCH ×4 (02:30→19:30)
[2019-12-22] MEDS: ALBUTEROL FS 2.5 MG/0.5 ML VIAL.NEB NEB SCH ×4 (02:30→19:30)
[2019-12-22] MEDS: METOCLOPRAMIDE HCL 10 MG/10 ML UDC GT SCH ×2 (05:41→13:23)
[2019-12-22] MEDS: CLONIDINE HCL 0.1 MG TABLET GT SCH ×2 (05:41→13:22)
[2019-12-22] MEDS: hydrALAZINE HCL 25 MG TABLET GT SCH ×2 (05:41→13:22)
[2019-12-22] MEDS: NEPRO 1,000 ML BOTTLE GT PRN (05:42)
[2019-12-22] MEDS: LABETALOL HCL 300 MG TABLET GT SCH ×2 (05:42→13:23)
[2019-12-22] MEDS: BLOOD SUGAR DIAGNOSTIC 1 EACH STRIP IN SCH ×3 (05:42→17:36)
[2019-12-22] MEDS: INSULIN ASPART/LISPRO 100 UNIT/ML CARTRIDGE SQ PRN ×3 (05:43→17:37)
[2019-12-22 06:29] LABS: BASOPHILS # (AUTO) 0.1 /CMM (0.0-0.2); BASOPHILS % (AUTO) 0.5 % (0.0-2.0); EOSINOPHILS % (AUTO) 11.3 % (0.0-6.0); HEMATOCRIT 21 % (39-51); LYMPHOCYTES # (AUTO) 0.9 /CMM (0.8-4.8); LYMPHOCYTES % (AUTO) 6.7 % (20.0-44.0); MEAN CORPUSCULAR HGB CONC 33 g/dl (31.0-36.0); MEAN CORPUSCULAR VOLUME 88 fL (80-96); MONOCYTES # (AUTO) 1.3 /CMM (0.1-1.30); MONOCYTES % (AUTO) 9.9 % (2.0-12.0); NEUTROPHILS # (AUTO) 9.7 /CMM (1.8-8.9); NEUTROPHILS % (AUTO) 71.6 % (43.0-81.0); PLATELET COUNT (AUTO) 194 /CMM (150-450); RED BLOOD CELL COUNT(AUTO) 2.32 MIL/uL (4.5-6.0); WHITE BLOOD COUNT (AUTO) 13.6 K/uL (4.3-11.0)
[2019-12-22 06:35] VITALS: BP 143/72
[2019-12-22 06:39] LABS: HEMOGLOBIN 6.7 g/dL (13.5-17.5)
[2019-12-22 07:07] LABS: ALBUMIN 2.6 g/dL (3.4-5.0); BILIRUBIN,TOTAL 0.3 mg/dL (0.2-1.0); CALCIUM, SERUM 10.5 mg/dL (8.5-10.1); CREATININE 3.7 mg/dL (0.6-1.3); MAGNESIUM 2.3 mg/dL (1.8-2.4); PHOSPHORUS 5.5 mg/dL (2.5-4.9); POTASSIUM 5.6 mmol/L (3.5-5.1); TOTAL PROTEIN, SERUM 7.8 g/dL (6.4-8.2)
[2019-12-22 07:27] LABS: BAND % (MANUAL) 1 % (0.0-5.0); EOSINOPHILS % (MANUAL) 9 % (0-4); LYMPHOCYTES % (MANUAL) 6 % (16-48); MONOCYTES % (MANUAL) 7 % (0-11.0); NEUTROPHILS % (MANUAL) 77 (42-76)
[2019-12-22 07:32] VITALS: BP 128/51
--- NOTE | 2019-12-22 08:08 | NUR ---
CBC and CMP result relayed to Dr. Treadwell for review. He said he will come see the patient. Patient stable, v/s WNL, awake, verbally responsive, no signs of distress, afebrile. Will continue to monitor.
--- NOTE | 2019-12-22 08:20 | NUR ---
Seen by Dr. Braun with order to postpone weaning on 12/26/19 d/t hgb- 6.7.
[2019-12-22] MEDS: LORATADINE 10 MG TABLET GT SCH (09:00)
[2019-12-22] MEDS: LEVETIRACETAM SOL (5 ML) 100 MG/ML UDC GT SCH (09:00)
[2019-12-22] MEDS: AMLODIPINE BESYLATE 10 MG TABLET GT SCH (09:00)
[2019-12-22] MEDS: MINOXIDIL (2.5MG) 2.5 MG TABLET GT SCH ×2 (09:00→17:36)
[2019-12-22] MEDS: Z GUARD REMEDY 4 OZ OINT TP SCH (09:00)
[2019-12-22] MEDS: DOXAZOSIN MESYLATE (4 MG) 4 MG TABLET GT SCH (09:00)
[2019-12-22] MEDS: ACETAMINOPHEN 650 MG/20 ML UDC- SA PATIENTS-PAIN ONLY GT SCH (09:00)
[2019-12-22] MEDS: MINERAL OIL/PETROL OINT 396 GM JAR TP SCH (09:00)
[2019-12-22] MEDS: FAMOTIDINE (20 MG) 20 MG TABLET GT SCH (09:00)
[2019-12-22] MEDS: BACI/NEOM/POLY B OINT PKT 1 UDPKT PACKET TP SCH (09:00)
[2019-12-22] MEDS: BASAGLAR SQ SCH (09:00)
[2019-12-22] MEDS: SITAGLIPTIN PHOSPHATE 50 MG TABLET GT SCH (09:00)
[2019-12-22] MEDS: LACTOBACILLUS RHAMNOSUS GG 1 EACH CAP.SPRINK GT SCH ×2 (09:00→17:34)
[2019-12-22] MEDS: VIT B CMPLX 3/FA/VIT C/BIOTIN 1 TAB TABLET GT SCH (09:00)
[2019-12-22] MEDS: FERROUS SULFATE UDC 300 MG/5 ML UDC GT SCH (09:00)
[2019-12-22] MEDS: HYDROGEN PEROXIDE 480 ML BOTTLE TP SCH (09:00)
[2019-12-22] MEDS: INSULIN GLARGINE SQ SCH (09:00)
[2019-12-22] MEDS: ISOSORBIDE DINITRATE (20MG) 20 MG TABLET GT SCH ×3 (09:00→17:35)
[2019-12-22] MEDS: CHLORHEXIDINE GLUCONATE 15 ML UDC MM SCH (09:00)
[2019-12-22] MEDS: DOCUSATE SODIUM LIQ 100 MG/10 ML UDC GT SCH (09:00)
[2019-12-22 12:00] VITALS: BP 142/78
--- NOTE | 2019-12-22 12:00 | NUR ---
Seen and examined by Dr. Treadwell reviewed lab results, no new order given at this time. He said he will talk to Dr. Braun if resident needs to be transferred to the acute. V/S stable, arousable, no signs of bleeding. Will continue to monitor.
[2019-12-22 18:00] VITALS: BP 127/59
--- NOTE | 2019-12-22 18:00 | NUR ---
Received order from Dr. Treadwell to transfer resident to ER for evaluation d/t abnormal labs, renal failure. RN music supervisor informed, RP Mr. Keith Klein informed of transfer. Pls transfer to ER once bed is available.
[2019-12-22 19:55] VITALS: BP 138/65
--- NOTE | 2019-12-22 20:10 | NUR ---
Patient transferred to ER accompanied by ELECTION JUDGE, RT and PAIRER INSPECTOR via hospital bed.Patient will be on bed hold x 7 days.
[2019-12-23] MEDS ORDERED: ONDA4TAB5 GT (10:37)
[2019-12-23] MEDS ORDERED: INSU100V7 SQ (10:37)
[2019-12-23] MEDS ORDERED: INSU100V42 (10:37)
[2019-12-23] MEDS ORDERED: MINO2.5T2 GT (10:37)
[2019-12-23] MEDS ORDERED: FERR325T23 GT (10:37)
[2019-12-23] MEDS ORDERED: LORA10TA7 GT (10:37)
[2019-12-23] MEDS ORDERED: ALBU2.5V13 IH ×2 (10:37)
[2019-12-23] MEDS ORDERED: INSU100V36 SQ (15:39)
[2019-12-23] MEDS ORDERED: SITA50TA GT (15:39)
[2019-12-23] MEDS ORDERED: INSU100I26 SQ (15:39)
[2019-12-23] MEDS ORDERED: ACET-73 GT (15:39)
[2019-12-23] MEDS ORDERED: LACT1CAP72 GT (15:39)
[2019-12-23] MEDS ORDERED: SENN-168 GT (15:39)
[2019-12-23] MEDS ORDERED: FOLI0.8T2 GT (15:39)
[2019-12-23] MEDS ORDERED: EPOE1000 SQ (15:39)
--- NOTE | 2019-12-26 13:45 | NUR ---
Spoke with Dr. Braun, he said to keep the patient on current settings and no abg whiile he's on the acute side.
--- NOTE | 2019-12-28 16:22 | NUR ---
Seven-Day Bed Hold Notice: JOELLE called and spoke with the patients responsible constitution party, Keith Klein [phone] to inform them that today is the last day the pt. will be on bed hold and inquire if family would like to pay out of pocket costs to continue bed hold. Family declined stating, I am retired and cant afford the cost. Keith stated that Dr. Elliott allegedly informed him that the pt. is in the process of being discharged.
[2019-12-28] MEDS ORDERED: DEXT50DI8 IV (18:28)
[2019-12-28] MEDS ORDERED: CEFE1VIA3 IV (18:28)
[2019-12-28] MEDS ORDERED: HYDR1SOL TD (18:28)
[2019-12-28] MEDS ORDERED: [UNRECOGNIZED DRUG - CODE] IV (18:28)
[2019-12-28] MEDS ORDERED: NYST15CR2 TP (18:28)
[2019-12-28] MEDS ORDERED: INSU100V7 SQ (18:28)
[2019-12-28] MEDS ORDERED: IPRA0.2S9 IH ×2 (18:28)
[2019-12-28] MEDS ORDERED: LINA5TAB GT (18:28)
[2019-12-28] MEDS ORDERED: NEOM28.37 TP (18:28)
[2019-12-28] MEDS ORDERED: INSU100V3 SQ (18:28)
[2019-12-28] MEDS ORDERED: GENT3.5O4 OP (18:28)
[2019-12-28] MEDS ORDERED: BLOO-668 IN (18:28)
[2019-12-28] MEDS ORDERED: AMLO10TA7 GT (18:28)
[2019-12-28] MEDS ORDERED: ONDA4VIA52 IV (18:28)
[2019-12-28] MEDS ORDERED: MINE50OI TP (18:28)
[2019-12-28] MEDS ORDERED: FERR300L GT (18:28)
[2019-12-28] MEDS ORDERED: ALLA266C2 TP (18:28)
[2019-12-28] MEDS ORDERED: NUT.237L67 GT (18:31)
--- NOTE | 2019-12-28 19:00 | NUR ---
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 Patient under the services of Dr. Arvind Valles. Patient awake and alert non verbal but able to use gestures to express his needs. Patient in s/s of SOB, current ventilator setting of AC 12, TV 500, Fi02 30% well tolerated. Admission orders verified with Dr. Treadwell in which he gave duration of IV ATB Cefipime x10 days, MD agreed to change route of IV Zofran to via GT, resident also on IVF D5 at 100cc/hr. Body check done. Left a message to Mr. Klein (uncle) of patient's readmission.
[2019-12-28] MEDS: NEPRO 1,000 ML BOTTLE GT PRN (19:35)
[2019-12-28 19:41] VITALS: BP 160/78
[2019-12-28 20:17] VITALS: BP 147/63
[2019-12-28] MEDS ORDERED: ACETAMINOPHEN 650 MG/20 ML UDC- SA PATIENTS-FEVER ONLY GT PRN (20:20)
[2019-12-28] MEDS ORDERED: ALBUTEROL FS 2.5 MG/0.5 ML VIAL.NEB NEB PRN (20:23)
[2019-12-28] MEDS ORDERED: IPRATROPIUM NEB FS 0.5 MG/2.5 ML AMPUL.NEB NEB PRN (20:26)
[2019-12-28] MEDS ORDERED: NA PHOS,M-B/NA PHOS,DI-BA 1 EA ENEMA RC PRN (20:30)
[2019-12-28] MEDS ORDERED: RETACRIT 10,000 UNITS SQ SCH (20:30)
--- NOTE | 2019-12-28 20:30 | NUR ---
Received and order from for generalized skin dryness,to apply Aquaphor QS for maintenance, Right antecubital open skin apply triple atb QS x 10 days,Buttocks/sacrum rashes ,apply Triamcinalone and nystatin cream QS x 14 days,Buttocks and perineal area apply Z guard QS for skin maintenance.Will carry out orders.
[2019-12-28] MEDS ORDERED: DEXTROSE 50%-WATER 50 ML DISP.SYRIN IV PRN (20:31)
[2019-12-28] MEDS ORDERED: ONDANSETRON HCL/PF 4 MG/2 ML VIAL IV PRN (20:32)
--- NOTE | 2019-12-28 20:40 | NUR ---
Clarification of vent orders settings ordered by Dr. Braun, place pt to CPAP ,PS 12 Peep 5, Fio2 30% and place pt if in distress to AC,Rate 12. TV 500 ,Peep 5, Fio2 30%
[2019-12-28] MEDS: CEFEPIME 1 GM in IV D5W 50 ML IV SCH (21:00)
[2019-12-28] MEDS: NYSTATIN/TRIAMCIN CREAM 15 GM TUBE TP SCH (21:00)
[2019-12-28] MEDS: BACI/NEOM/POLY B OINT PKT 1 UDPKT PACKET TP SCH (21:00)
[2019-12-28] MEDS: Z GUARD REMEDY 4 OZ OINT TP SCH (21:00)
[2019-12-28] MEDS: MINERAL OIL/PETROL OINT 396 GM JAR TP SCH (21:00)
[2019-12-28] MEDS: hydrALAZINE HCL 25 MG TABLET GT SCH (21:37)
[2019-12-28] MEDS: DOXAZOSIN MESYLATE (4 MG) 4 MG TABLET GT SCH (21:38)
[2019-12-28] MEDS: CLONIDINE HCL 0.1 MG TABLET GT SCH (21:38)
[2019-12-28] MEDS: LEVETIRACETAM SOL (5 ML) 100 MG/ML UDC GT SCH (21:39)
[2019-12-28] MEDS: DOCUSATE SODIUM LIQ 100 MG/10 ML UDC GT SCH (21:39)
[2019-12-28] MEDS: METOCLOPRAMIDE HCL 10 MG/10 ML UDC GT SCH (21:40)
[2019-12-28] MEDS: LABETALOL HCL 300 MG TABLET GT SCH (21:41)
[2019-12-28] MEDS: BASAGLAR SQ SCH (22:00)
[2019-12-28] MEDS: INSULIN GLARGINE SQ SCH (22:00)
[2019-12-29 00:22] VITALS: BP 158/79
[2019-12-29] MEDS: BLOOD SUGAR DIAGNOSTIC 1 EACH STRIP IN SCH ×5 (00:37→23:50)
[2019-12-29] MEDS: INSULIN REGULAR, HUMAN 100 UNIT/ML 3 ML VIAL SQ PRN ×5 (00:38→23:50)
--- NOTE | 2019-12-29 00:45 | NUR ---
Discontinue Gentamicin 0.3% ointment change to Gentamicin 0.3% drops TID x 7 days for conjunctivitis per MD order.
[2019-12-29] MEDS: ALBUTEROL FS 2.5 MG/0.5 ML VIAL.NEB NEB SCH ×4 (02:00→20:04)
[2019-12-29] MEDS: IPRATROPIUM NEB FS 0.5 MG/2.5 ML AMPUL.NEB NEB SCH ×4 (02:00→20:04)
[2019-12-29] MEDS: CLONIDINE HCL 0.1 MG TABLET GT SCH ×3 (05:29→20:49)
[2019-12-29] MEDS: hydrALAZINE HCL 25 MG TABLET GT SCH ×3 (05:29→20:49)
[2019-12-29] MEDS: LABETALOL HCL 300 MG TABLET GT SCH ×3 (05:29→20:50)
[2019-12-29] MEDS: METOCLOPRAMIDE HCL 10 MG/10 ML UDC GT SCH ×3 (05:29→20:50)
[2019-12-29] MEDS: IV D5W 1,000 ML IV PRN ×2 (05:58→16:15)
[2019-12-29 06:07] VITALS: BP 137/75
[2019-12-29 07:40] VITALS: BP 144/61
[2019-12-29] MEDS: Z GUARD REMEDY 4 OZ OINT TP SCH ×2 (09:00→20:51)
[2019-12-29] MEDS: FAMOTIDINE (20 MG) 20 MG TABLET GT SCH (09:00)
[2019-12-29] MEDS: VIT B CMPLX 3/FA/VIT C/BIOTIN 1 TAB TABLET GT SCH (09:00)
[2019-12-29] MEDS: NYSTATIN/TRIAMCIN CREAM 15 GM TUBE TP SCH ×2 (09:00→20:51)
[2019-12-29] MEDS: DOCUSATE SODIUM LIQ 100 MG/10 ML UDC GT SCH ×2 (09:00→20:49)
[2019-12-29] MEDS: BACI/NEOM/POLY B OINT PKT 1 UDPKT PACKET TP SCH ×2 (09:00→20:51)
[2019-12-29] MEDS ORDERED: GENTAMICIN OPTH SOLN 0.3% 5 ML BOTTLE RIGHTEYE SCH (09:00)
[2019-12-29] MEDS: LORATADINE 10 MG TABLET GT SCH (09:00)
[2019-12-29] MEDS: BASAGLAR SQ SCH ×2 (09:00→20:51)
[2019-12-29] MEDS ORDERED: LINAGLIPTIN 5 MG TABLET GT SCH (09:00)
[2019-12-29] MEDS: FERROUS SULFATE UDC 300 MG/5 ML UDC GT SCH (09:00)
[2019-12-29] MEDS: INSULIN GLARGINE SQ SCH ×2 (09:00→20:51)
[2019-12-29] MEDS: LEVETIRACETAM SOL (5 ML) 100 MG/ML UDC GT SCH ×2 (09:00→20:49)
[2019-12-29] MEDS: MINERAL OIL/PETROL OINT 396 GM JAR TP SCH ×2 (09:00→20:51)
[2019-12-29] MEDS: LACTOBACILLUS RHAMNOSUS GG 1 EACH CAP.SPRINK GT SCH ×2 (09:00→17:41)
[2019-12-29] MEDS: AMLODIPINE BESYLATE 10 MG TABLET GT SCH (09:00)
[2019-12-29] MEDS: ISOSORBIDE DINITRATE (20MG) 20 MG TABLET GT SCH ×3 (09:00→17:41)
[2019-12-29] MEDS: MINOXIDIL (2.5MG) 2.5 MG TABLET GT SCH ×2 (09:00→17:41)
[2019-12-29] MEDS: CHLORHEXIDINE GLUCONATE 15 ML UDC MM SCH (09:00)
[2019-12-29] MEDS ORDERED: GENTAMICIN OPTH OINT 0.3% 3.5 G TUBE OP SCH (09:00)
[2019-12-29] MEDS: DOXAZOSIN MESYLATE (4 MG) 4 MG TABLET GT SCH ×2 (09:00→20:49)
[2019-12-29] MEDS: ACETAMINOPHEN 650 MG/20 ML UDC- SA PATIENTS-PAIN ONLY GT SCH (10:40)
--- NOTE | 2019-12-29 10:53 | NUR ---
Notified Dr Treadwell that Tradjenta is not covered by insurance and covered alternative is Januvia. Received order to DC Tradjenta and give Januvia 100 mg GT daily for DM.
[2019-12-29 12:00] VITALS: BP 156/80
[2019-12-29] MEDS: NEPRO 1,000 ML BOTTLE GT PRN (17:42)
[2019-12-29] MEDS: GENTAMICIN OPTH SOLN 0.3% 5 ML BOTTLE RIGHTEYE SCH (17:44)
[2019-12-29 18:00] VITALS: BP 132/69
[2019-12-29 20:14] VITALS: BP 137/70
[2019-12-29] MEDS: CEFEPIME 1 GM in IV D5W 50 ML IV SCH (21:10)
--- NOTE | 2019-12-29 21:27 | NUR ---
RT NOTE Pt Rec'd trached on [facility] vent on CPAP mode. No resp distress or sob noted. Pt sx'd for thick mod amt of pale yellow secretions. Alarms are set and audible. Vent plugged into red outlet. ambu bag bedside. Will continue to monitor closely. Addendum: 12/29/19 at 2127 by CRISTIANE NAVA RT Amended: Links added.
[2019-12-30 00:30] VITALS: BP 154/71
[2019-12-30] MEDS: IPRATROPIUM NEB FS 0.5 MG/2.5 ML AMPUL.NEB NEB SCH ×4 (01:52→19:52)
[2019-12-30] MEDS: ALBUTEROL FS 2.5 MG/0.5 ML VIAL.NEB NEB SCH ×4 (01:52→19:52)
[2019-12-30] MEDS: LABETALOL HCL 300 MG TABLET GT SCH ×3 (04:42→21:16)
[2019-12-30] MEDS: METOCLOPRAMIDE HCL 10 MG/10 ML UDC GT SCH ×3 (04:42→21:15)
[2019-12-30] MEDS: CLONIDINE HCL 0.1 MG TABLET GT SCH ×3 (04:42→21:15)
[2019-12-30] MEDS: hydrALAZINE HCL 25 MG TABLET GT SCH ×3 (04:42→21:15)
[2019-12-30] MEDS: BLOOD SUGAR DIAGNOSTIC 1 EACH STRIP IN SCH ×4 (05:34→23:56)
[2019-12-30] MEDS: INSULIN REGULAR, HUMAN 100 UNIT/ML 3 ML VIAL SQ PRN ×4 (05:36→23:57)
[2019-12-30] MEDS: IV D5W 1,000 ML IV PRN ×3 (06:16→21:09)
[2019-12-30 06:18] VITALS: BP 155/84
[2019-12-30] MEDS: BISACODYL SUPP (10 MG) 10 MG/SUPP.RECT SUPP.RECT RC PRN (06:53)
[2019-12-30 07:37] VITALS: BP 140/49
[2019-12-30] MEDS: SITAGLIPTIN PHOSPHATE 50 MG TABLET GT SCH (09:00)
[2019-12-30] MEDS: INSULIN GLARGINE SQ SCH ×2 (09:00→21:17)
[2019-12-30] MEDS: BASAGLAR SQ SCH ×2 (09:00→21:17)
[2019-12-30] MEDS: DOXAZOSIN MESYLATE (4 MG) 4 MG TABLET GT SCH ×2 (09:00→21:15)
[2019-12-30] MEDS: NYSTATIN/TRIAMCIN CREAM 15 GM TUBE TP SCH ×2 (09:00→21:17)
[2019-12-30] MEDS: LACTOBACILLUS RHAMNOSUS GG 1 EACH CAP.SPRINK GT SCH ×2 (09:00→17:22)
[2019-12-30] MEDS: FAMOTIDINE (20 MG) 20 MG TABLET GT SCH (09:00)
[2019-12-30] MEDS: GENTAMICIN OPTH SOLN 0.3% 5 ML BOTTLE RIGHTEYE SCH ×3 (09:00→17:23)
[2019-12-30] MEDS: Z GUARD REMEDY 4 OZ OINT TP SCH ×2 (09:00→21:17)
[2019-12-30] MEDS: LEVETIRACETAM SOL (5 ML) 100 MG/ML UDC GT SCH ×2 (09:00→21:15)
[2019-12-30] MEDS: BACI/NEOM/POLY B OINT PKT 1 UDPKT PACKET TP SCH ×2 (09:00→21:17)
[2019-12-30] MEDS: CHLORHEXIDINE GLUCONATE 15 ML UDC MM SCH (09:00)
[2019-12-30] MEDS: ISOSORBIDE DINITRATE (20MG) 20 MG TABLET GT SCH ×3 (09:00→17:22)
[2019-12-30] MEDS: LORATADINE 10 MG TABLET GT SCH (09:00)
[2019-12-30] MEDS: VIT B CMPLX 3/FA/VIT C/BIOTIN 1 TAB TABLET GT SCH (09:00)
[2019-12-30] MEDS: DOCUSATE SODIUM LIQ 100 MG/10 ML UDC GT SCH ×2 (09:00→21:15)
[2019-12-30] MEDS: AMLODIPINE BESYLATE 10 MG TABLET GT SCH (09:00)
[2019-12-30] MEDS: MINOXIDIL (2.5MG) 2.5 MG TABLET GT SCH ×2 (09:00→17:23)
[2019-12-30] MEDS: FERROUS SULFATE UDC 300 MG/5 ML UDC GT SCH (09:00)
[2019-12-30] MEDS: MINERAL OIL/PETROL OINT 396 GM JAR TP SCH ×2 (09:00→21:17)
[2019-12-30] MEDS: ACETAMINOPHEN 650 MG/20 ML UDC- SA PATIENTS-PAIN ONLY GT SCH (10:00)
--- NOTE | 2019-12-30 10:36 | NUR ---
Referred to Dr. Valles to evaluate IVF if needed to continue, ordered CBC, BMP, Mg and Phos level today.
[2019-12-30 12:00] VITALS: BP 152/82
[2019-12-30 13:17] LABS: PHOSPHORUS 4.1 mg/dL (2.5-4.9); POTASSIUM 5.1 mmol/L (3.5-5.1)
[2019-12-30 14:20] LABS: BASOPHILS # (AUTO) 0.1 /CMM (0.0-0.2); BASOPHILS % (AUTO) 0.5 % (0.0-2.0); EOSINOPHILS % (AUTO) 15.3 % (0.0-6.0); HEMATOCRIT 25 % (39-51); HEMOGLOBIN 8.2 g/dL (13.5-17.5); LYMPHOCYTES # (AUTO) 1.2 /CMM (0.8-4.8); MEAN CORPUSCULAR HGB CONC 33 g/dl (31.0-36.0); MEAN CORPUSCULAR VOLUME 87 fL (80-96); MONOCYTES # (AUTO) 1.2 /CMM (0.1-1.30); MONOCYTES % (AUTO) 7.6 % (2.0-12.0); NEUTROPHILS # (AUTO) 10.5 /CMM (1.8-8.9); NEUTROPHILS % (AUTO) 68.6 % (43.0-81.0); PLATELET COUNT (AUTO) 222 /CMM (150-450); RED BLOOD CELL COUNT(AUTO) 2.91 MIL/uL (4.5-6.0); WHITE BLOOD COUNT (AUTO) 15.2 K/uL (4.3-11.0)
--- NOTE | 2019-12-30 16:00 | NUR ---
Wheelchair Update: As requested by [facility] [employer] retail account representative, Arianna (reference#[id number]); JOELLE made another attempt and called [facility] [employer] and spoke to Shubham to have pt.s evaluated by Pankaj to get authorization for Wheel Chair. Per Shubham he cannot schedule the pt. for evaluation however, he will send this information to their scheduling department. Per Shubham, JOELLE should expect a call from [employer] scheduling department. JOELLE requested that [employer] call and set up appointment as they have not scheduled it in the past and just shown up and not left any paperwork for our records. Shubham was agreeable to plan.
--- NOTE | 2019-12-30 16:45 | NUR ---
Relayed lab results (CBC and BMP) to Dr. Valles's, through Selena from his office, WBC 15.2, BUN 56, Creat 3.0 and Na+ 135. According to Selena, Dr. Valles said to continue with IVF of D5W at 100cc/hr x 1 more L then DC and no other orders. Patient currently on Cefepime 1 gm Q 24 hours.
[2019-12-30 18:15] VITALS: BP 139/72
--- NOTE | 2019-12-30 18:34 | NUR ---
RT NOTE RECEIVED PATIENT ON MECHANICAL VENT WITH ORDERED SETTINGS. ALARMS ON AND AUDIBLE. VENT PLUGGED IN TO RED OUTLET. TRACH TUBE IN PLACE, PATENT, AND SECURED WITH TRACH TIE. AMBU BAG AND BACK UP TRACH BY THE BEDSIDE. NO DISTRESS AT THIS TIME.
--- NOTE | 2019-12-30 19:00 | NUR ---
Seen and examined by DO Jones given at this time.
[2019-12-30 20:58] VITALS: BP 146/77
[2019-12-30] MEDS: CEFEPIME 1 GM in IV D5W 50 ML IV SCH (21:09)
[2019-12-31 00:01] VITALS: BP 150/73
[2019-12-31] MEDS: ALBUTEROL FS 2.5 MG/0.5 ML VIAL.NEB NEB SCH ×4 (02:03→19:49)
[2019-12-31] MEDS: IPRATROPIUM NEB FS 0.5 MG/2.5 ML AMPUL.NEB NEB SCH ×4 (02:03→19:49)
[2019-12-31] MEDS: NEPRO 1,000 ML BOTTLE GT PRN (02:41)
[2019-12-31] MEDS: LABETALOL HCL 300 MG TABLET GT SCH ×3 (05:30→21:06)
[2019-12-31] MEDS: hydrALAZINE HCL 25 MG TABLET GT SCH ×3 (05:30→21:05)
[2019-12-31] MEDS: METOCLOPRAMIDE HCL 10 MG/10 ML UDC GT SCH ×3 (05:30→21:06)
[2019-12-31] MEDS: CLONIDINE HCL 0.1 MG TABLET GT SCH ×3 (05:30→21:05)
[2019-12-31] MEDS: BLOOD SUGAR DIAGNOSTIC 1 EACH STRIP IN SCH ×3 (06:06→17:30)
[2019-12-31] MEDS: INSULIN REGULAR, HUMAN 100 UNIT/ML 3 ML VIAL SQ PRN ×3 (06:07→17:41)
[2019-12-31 06:26] VITALS: BP 151/77
[2019-12-31 08:00] VITALS: BP 141/45
[2019-12-31] MEDS: FAMOTIDINE (20 MG) 20 MG TABLET GT SCH (09:00)
[2019-12-31] MEDS: GENTAMICIN OPTH SOLN 0.3% 5 ML BOTTLE RIGHTEYE SCH ×3 (09:00→17:30)
[2019-12-31] MEDS: BASAGLAR SQ SCH ×2 (09:00→21:07)
[2019-12-31] MEDS: MINOXIDIL (2.5MG) 2.5 MG TABLET GT SCH ×2 (09:00→17:30)
[2019-12-31] MEDS: Z GUARD REMEDY 4 OZ OINT TP SCH ×2 (09:00→21:07)
[2019-12-31] MEDS: CHLORHEXIDINE GLUCONATE 15 ML UDC MM SCH (09:00)
[2019-12-31] MEDS: LACTOBACILLUS RHAMNOSUS GG 1 EACH CAP.SPRINK GT SCH ×2 (09:00→17:29)
[2019-12-31] MEDS: ACETAMINOPHEN 650 MG/20 ML UDC- SA PATIENTS-PAIN ONLY GT SCH (09:00)
[2019-12-31] MEDS: LEVETIRACETAM SOL (5 ML) 100 MG/ML UDC GT SCH ×2 (09:00→21:06)
[2019-12-31] MEDS: SITAGLIPTIN PHOSPHATE 50 MG TABLET GT SCH (09:00)
[2019-12-31] MEDS: AMLODIPINE BESYLATE 10 MG TABLET GT SCH (09:00)
[2019-12-31] MEDS: INSULIN GLARGINE SQ SCH ×2 (09:00→21:07)
[2019-12-31] MEDS: DOCUSATE SODIUM LIQ 100 MG/10 ML UDC GT SCH ×2 (09:00→21:05)
[2019-12-31] MEDS: NYSTATIN/TRIAMCIN CREAM 15 GM TUBE TP SCH ×2 (09:00→21:07)
[2019-12-31] MEDS: FERROUS SULFATE UDC 300 MG/5 ML UDC GT SCH (09:00)
[2019-12-31] MEDS: MINERAL OIL/PETROL OINT 396 GM JAR TP SCH ×2 (09:00→21:07)
[2019-12-31] MEDS: BACI/NEOM/POLY B OINT PKT 1 UDPKT PACKET TP SCH ×2 (09:00→21:07)
[2019-12-31] MEDS: VIT B CMPLX 3/FA/VIT C/BIOTIN 1 TAB TABLET GT SCH (09:00)
[2019-12-31] MEDS: ISOSORBIDE DINITRATE (20MG) 20 MG TABLET GT SCH ×3 (09:00→17:30)
[2019-12-31] MEDS: LORATADINE 10 MG TABLET GT SCH (09:00)
[2019-12-31] MEDS: DOXAZOSIN MESYLATE (4 MG) 4 MG TABLET GT SCH ×2 (09:00→21:05)
[2019-12-31] MEDS ORDERED: ONDANSETRON HCL/PF 4 MG/2 ML VIAL ONE (10:35)
[2019-12-31 12:00] VITALS: BP 155/75
[2019-12-31 18:13] VITALS: BP 152/76
[2019-12-31] MEDS: CEFEPIME 1 GM in IV D5W 50 ML IV SCH (21:00)
[2019-12-31 23:50] VITALS: BP 157/51
[2020-01-01] VITALS: BP 142/80
[2020-01-01] MEDS: INSULIN REGULAR, HUMAN 100 UNIT/ML 3 ML VIAL SQ PRN ×5 (00:05→23:10)
[2020-01-01] MEDS: BLOOD SUGAR DIAGNOSTIC 1 EACH STRIP IN SCH ×5 (00:05→23:09)
[2020-01-01] MEDS: ALBUTEROL FS 2.5 MG/0.5 ML VIAL.NEB NEB SCH ×4 (01:28→20:00)
[2020-01-01] MEDS: IPRATROPIUM NEB FS 0.5 MG/2.5 ML AMPUL.NEB NEB SCH ×4 (01:28→20:00)
[2020-01-01] MEDS: hydrALAZINE HCL 25 MG TABLET GT SCH ×3 (05:44→21:08)
[2020-01-01] MEDS: CLONIDINE HCL 0.1 MG TABLET GT SCH ×3 (05:45→21:09)
[2020-01-01] MEDS: LABETALOL HCL 300 MG TABLET GT SCH ×3 (05:45→21:09)
[2020-01-01] MEDS: METOCLOPRAMIDE HCL 10 MG/10 ML UDC GT SCH ×3 (05:45→21:09)
[2020-01-01 06:36] VITALS: BP 146/82
[2020-01-01 07:49] VITALS: BP 136/76
[2020-01-01] MEDS: NYSTATIN/TRIAMCIN CREAM 15 GM TUBE TP SCH ×2 (09:00→21:10)
[2020-01-01] MEDS: BACI/NEOM/POLY B OINT PKT 1 UDPKT PACKET TP SCH ×2 (09:00→21:11)
[2020-01-01] MEDS: MINERAL OIL/PETROL OINT 396 GM JAR TP SCH ×2 (09:00→21:10)
[2020-01-01] MEDS: Z GUARD REMEDY 4 OZ OINT TP SCH ×2 (09:00→21:11)
[2020-01-01] MEDS: LORATADINE 10 MG TABLET GT SCH (09:39)
[2020-01-01] MEDS: DOCUSATE SODIUM LIQ 100 MG/10 ML UDC GT SCH ×2 (09:39→21:09)
[2020-01-01] MEDS: LACTOBACILLUS RHAMNOSUS GG 1 EACH CAP.SPRINK GT SCH ×2 (09:39→17:34)
[2020-01-01] MEDS: FERROUS SULFATE UDC 300 MG/5 ML UDC GT SCH (09:39)
[2020-01-01] MEDS: DOXAZOSIN MESYLATE (4 MG) 4 MG TABLET GT SCH ×2 (09:39→21:08)
[2020-01-01] MEDS: MINOXIDIL (2.5MG) 2.5 MG TABLET GT SCH ×2 (09:40→17:35)
[2020-01-01] MEDS: LEVETIRACETAM SOL (5 ML) 100 MG/ML UDC GT SCH ×2 (09:40→21:09)
[2020-01-01] MEDS: SITAGLIPTIN PHOSPHATE 50 MG TABLET GT SCH (09:40)
[2020-01-01] MEDS: AMLODIPINE BESYLATE 10 MG TABLET GT SCH (09:40)
[2020-01-01] MEDS: VIT B CMPLX 3/FA/VIT C/BIOTIN 1 TAB TABLET GT SCH (09:40)
[2020-01-01] MEDS: ISOSORBIDE DINITRATE (20MG) 20 MG TABLET GT SCH ×3 (09:40→17:34)
[2020-01-01] MEDS: CHLORHEXIDINE GLUCONATE 15 ML UDC MM SCH (09:41)
[2020-01-01] MEDS: ACETAMINOPHEN 650 MG/20 ML UDC- SA PATIENTS-PAIN ONLY GT SCH (09:41)
[2020-01-01] MEDS: FAMOTIDINE (20 MG) 20 MG TABLET GT SCH (09:41)
[2020-01-01] MEDS: GENTAMICIN OPTH SOLN 0.3% 5 ML BOTTLE RIGHTEYE SCH ×3 (09:42→17:35)
[2020-01-01] MEDS: INSULIN GLARGINE SQ SCH ×2 (09:43→21:10)
[2020-01-01] MEDS: BASAGLAR SQ SCH ×2 (09:43→21:10)
[2020-01-01] MEDS: NEPRO 1,000 ML BOTTLE GT PRN (14:23)
[2020-01-01 15:53] VITALS: BP 139/75
[2020-01-01 18:32] VITALS: BP 157/78
--- NOTE | 2020-01-01 20:03 | NUR ---
RT NOTES PT RECEIVED TRACHED ON [facility] VENT ON CHARTED SETTINGS. NO SIGNS OF RESP DISTRESS/SOB NOTED. AIRWAY PATENT AND SECURED. HEALTH CLINICIAN DONE. PT SUCTIONED. HHN TX GIVEN. NO ADVERSE REACTIONS NOTED. ALARMS SET AND AUDIBLE. AMBUBAG AND SPARE TRACH AT BEDSIDE. VENT CONNECTED TO RED OUTLET. WILL CONT TO MONITOR Addendum: 01/02/20 at 0315 by GINETTE MAHONEY RT Amended: Links added.
[2020-01-01 20:49] VITALS: BP 158/82
[2020-01-01] MEDS: CEFEPIME 1 GM in IV D5W 50 ML IV SCH (21:42)
[2020-01-02 01:01] VITALS: BP 144/80
[2020-01-02] MEDS: IPRATROPIUM NEB FS 0.5 MG/2.5 ML AMPUL.NEB NEB SCH ×4 (02:01→19:22)
[2020-01-02] MEDS: ALBUTEROL FS 2.5 MG/0.5 ML VIAL.NEB NEB SCH ×4 (02:01→19:22)
[2020-01-02] MEDS: hydrALAZINE HCL 25 MG TABLET GT SCH ×3 (05:13→21:20)
[2020-01-02] MEDS: METOCLOPRAMIDE HCL 10 MG/10 ML UDC GT SCH ×3 (05:13→21:21)
[2020-01-02] MEDS: CLONIDINE HCL 0.1 MG TABLET GT SCH ×3 (05:13→21:21)
[2020-01-02] MEDS: LABETALOL HCL 300 MG TABLET GT SCH ×3 (05:14→21:21)
[2020-01-02] MEDS: INSULIN REGULAR, HUMAN 100 UNIT/ML 3 ML VIAL SQ PRN ×3 (06:05→17:47)
[2020-01-02] MEDS: BLOOD SUGAR DIAGNOSTIC 1 EACH STRIP IN SCH ×3 (06:05→17:47)
[2020-01-02 06:13] VITALS: BP 148/80
[2020-01-02 08:04] VITALS: BP 143/74
--- NOTE | 2020-01-02 08:06 | NUR ---
PT RECEIVED TRACHED ON [facility] VENT ON [place] ORDERED SETTINGS. AIRWAY PATENT AND SECURED. TUBING OILER DONE. ALARMS SET AND AUDIBLE. AMBUBAG AND SPARE TRACH AT BEDSIDE. VENT CONNECTED TO RED OUTLET. Addendum: 01/02/20 at 0807 by MARTHA ARENAS RT Amended: Links added.
[2020-01-02] MEDS: MINOXIDIL (2.5MG) 2.5 MG TABLET GT SCH ×2 (09:00→17:46)
[2020-01-02] MEDS: NYSTATIN/TRIAMCIN CREAM 15 GM TUBE TP SCH ×2 (09:00→21:21)
[2020-01-02] MEDS: AMLODIPINE BESYLATE 10 MG TABLET GT SCH (09:00)
[2020-01-02] MEDS: INSULIN GLARGINE SQ SCH ×2 (09:00→21:55)
[2020-01-02] MEDS: ISOSORBIDE DINITRATE (20MG) 20 MG TABLET GT SCH ×3 (09:00→17:45)
[2020-01-02] MEDS: FERROUS SULFATE UDC 300 MG/5 ML UDC GT SCH (09:00)
[2020-01-02] MEDS: LEVETIRACETAM SOL (5 ML) 100 MG/ML UDC GT SCH ×2 (09:00→21:21)
[2020-01-02] MEDS: ACETAMINOPHEN 650 MG/20 ML UDC- SA PATIENTS-PAIN ONLY GT SCH (09:00)
[2020-01-02] MEDS: BASAGLAR SQ SCH ×2 (09:00→21:55)
[2020-01-02] MEDS: Z GUARD REMEDY 4 OZ OINT TP SCH ×2 (09:00→21:21)
[2020-01-02] MEDS: FAMOTIDINE (20 MG) 20 MG TABLET GT SCH (09:00)
[2020-01-02] MEDS: MINERAL OIL/PETROL OINT 396 GM JAR TP SCH ×2 (09:00→21:21)
[2020-01-02] MEDS: DOXAZOSIN MESYLATE (4 MG) 4 MG TABLET GT SCH ×2 (09:00→21:21)
[2020-01-02] MEDS: GENTAMICIN OPTH SOLN 0.3% 5 ML BOTTLE RIGHTEYE SCH ×3 (09:00→17:46)
[2020-01-02] MEDS: LACTOBACILLUS RHAMNOSUS GG 1 EACH CAP.SPRINK GT SCH ×2 (09:00→17:45)
[2020-01-02] MEDS: CHLORHEXIDINE GLUCONATE 15 ML UDC MM SCH (09:00)
[2020-01-02] MEDS: SITAGLIPTIN PHOSPHATE 50 MG TABLET GT SCH (09:00)
[2020-01-02] MEDS: DOCUSATE SODIUM LIQ 100 MG/10 ML UDC GT SCH ×2 (09:00→21:21)
[2020-01-02] MEDS: BACI/NEOM/POLY B OINT PKT 1 UDPKT PACKET TP SCH ×2 (09:00→21:21)
[2020-01-02] MEDS: LORATADINE 10 MG TABLET GT SCH (09:00)
[2020-01-02] MEDS: VIT B CMPLX 3/FA/VIT C/BIOTIN 1 TAB TABLET GT SCH (09:00)
--- NOTE | 2020-01-02 09:45 | NUR ---
JOELLE received a voicemail from Geri Zarco, a Physical Therapist from [employer] stating that she can come asses the resident to determine if authorization should be made for [id number] wheelchair. JOELLE called Geri at [phone] who stated that she is available tomorrow, January 03, 2020 in the last afternoon. JOELLE informed the patients family and informed the charge nurse.
[2020-01-02 16:50] VITALS: BP 133/74
[2020-01-02 18:16] VITALS: BP 127/61
[2020-01-02 20:21] VITALS: BP 163/79
[2020-01-02] MEDS: CEFEPIME 1 GM in IV D5W 50 ML IV SCH (21:00)
[2020-01-03 00:31] VITALS: BP 148/82
[2020-01-03] MEDS: BLOOD SUGAR DIAGNOSTIC 1 EACH STRIP IN SCH ×5 (00:42→23:08)
[2020-01-03] MEDS: ALBUTEROL FS 2.5 MG/0.5 ML VIAL.NEB NEB SCH ×4 (01:49→19:18)
[2020-01-03] MEDS: IPRATROPIUM NEB FS 0.5 MG/2.5 ML AMPUL.NEB NEB SCH ×4 (01:49→19:18)
[2020-01-03] MEDS: METOCLOPRAMIDE HCL 10 MG/10 ML UDC GT SCH ×3 (05:12→21:33)
[2020-01-03] MEDS: CLONIDINE HCL 0.1 MG TABLET GT SCH ×3 (05:12→21:33)
[2020-01-03] MEDS: LABETALOL HCL 300 MG TABLET GT SCH ×3 (05:12→21:33)
[2020-01-03] MEDS: hydrALAZINE HCL 25 MG TABLET GT SCH ×3 (05:12→21:33)
[2020-01-03] MEDS: INSULIN REGULAR, HUMAN 100 UNIT/ML 3 ML VIAL SQ PRN ×4 (06:21→23:09)
[2020-01-03 06:51] VITALS: BP 140/86
[2020-01-03 07:59] VITALS: BP 141/71
[2020-01-03] MEDS: DOXAZOSIN MESYLATE (4 MG) 4 MG TABLET GT SCH ×2 (09:00→21:33)
[2020-01-03] MEDS: CHLORHEXIDINE GLUCONATE 15 ML UDC MM SCH (09:00)
[2020-01-03] MEDS: Z GUARD REMEDY 4 OZ OINT TP SCH ×2 (09:00→21:35)
[2020-01-03] MEDS: FAMOTIDINE (20 MG) 20 MG TABLET GT SCH (09:00)
[2020-01-03] MEDS: BACI/NEOM/POLY B OINT PKT 1 UDPKT PACKET TP SCH ×2 (09:00→21:34)
[2020-01-03] MEDS: INSULIN GLARGINE SQ SCH ×2 (09:00→21:34)
[2020-01-03] MEDS: MINERAL OIL/PETROL OINT 396 GM JAR TP SCH ×2 (09:00→21:34)
[2020-01-03] MEDS: LORATADINE 10 MG TABLET GT SCH (09:00)
[2020-01-03] MEDS: NYSTATIN/TRIAMCIN CREAM 15 GM TUBE TP SCH ×2 (09:00→21:34)
[2020-01-03] MEDS: SITAGLIPTIN PHOSPHATE 50 MG TABLET GT SCH (09:00)
[2020-01-03] MEDS: GENTAMICIN OPTH SOLN 0.3% 5 ML BOTTLE RIGHTEYE SCH ×3 (09:00→17:50)
[2020-01-03] MEDS: LACTOBACILLUS RHAMNOSUS GG 1 EACH CAP.SPRINK GT SCH ×2 (09:00→17:50)
[2020-01-03] MEDS: BASAGLAR SQ SCH ×2 (09:00→21:34)
[2020-01-03] MEDS: LEVETIRACETAM SOL (5 ML) 100 MG/ML UDC GT SCH ×2 (09:00→21:33)
[2020-01-03] MEDS: MINOXIDIL (2.5MG) 2.5 MG TABLET GT SCH ×2 (09:00→17:50)
[2020-01-03] MEDS: DOCUSATE SODIUM LIQ 100 MG/10 ML UDC GT SCH ×2 (09:00→21:33)
[2020-01-03] MEDS: ACETAMINOPHEN 650 MG/20 ML UDC- SA PATIENTS-PAIN ONLY GT SCH (09:00)
[2020-01-03] MEDS: VIT B CMPLX 3/FA/VIT C/BIOTIN 1 TAB TABLET GT SCH (09:00)
[2020-01-03] MEDS: AMLODIPINE BESYLATE 10 MG TABLET GT SCH (09:00)
[2020-01-03] MEDS: FERROUS SULFATE UDC 300 MG/5 ML UDC GT SCH (09:00)
[2020-01-03] MEDS: ISOSORBIDE DINITRATE (20MG) 20 MG TABLET GT SCH ×3 (09:00→17:50)
--- NOTE | 2020-01-03 10:21 | NUR ---
Seen and examined by Dr. Braun, no new order given.
--- NOTE | 2020-01-03 12:30 | NUR ---
Resident noted with 27.8 lbs wt loss x 1 month. Previously noted edema subsides. Dr. Treadwell informed. Resident stable, no signs of distress. RP informed.
[2020-01-03 12:32] VITALS: BP 141/75
--- NOTE | 2020-01-03 12:57 | NUR ---
RT NOTE PERFORMED ROUTINE MONTHLY TRACH CHANGE PER RT PROTOCOL. CHANGE TRACH WITH A NEW PORTEX 7 CUFFED. SPARE TRACH AND BVM IS AT BEDSIDE. PATIENT TOLERATED PROCEDURE WELL. THERE WAS MINIMAL BLEEDING AROUND THE STOMA. PATIENT HAS EQUAL CHEST RISE AND CLEAR BILATERAL BREATH SOUNDS. SPO2 IS 100% AND HR IS 72 BPM. NO REDNESS OR SWELLING AROUND THE STOMA. WILL CONTINUE TO MONITOR.
[2020-01-03] MEDS: BISACODYL SUPP (10 MG) 10 MG/SUPP.RECT SUPP.RECT RC PRN (15:55)
--- NOTE | 2020-01-03 17:48 | NUR ---
RT NOTE RECEIVED PATIENT ON TRACH WITH MECHANICAL VENTILATOR. TRACH IS PATENT AND SECURED. SPARE TRACH AND BVM IS AT BEDSIDE. ALARMS ARE SET AND AUDIBLE. VENTILATOR IS PLUGGED TO RED OUTLET. PATIENT HAS EQUAL CHEST RISE WITH COARSE BILATERAL BREATH SOUNDS. SUCTION SMALL AMOUNT OF THICK GREEN/YELLOW SECRETIONS THROUGH OUT THE DAY. Q6 BREATHING TREATMENTS GIVEN WITH NO ADVERSE REACTIONS. Addendum: 01/03/20 at 1749 by DIA PIERRE RT Amended: Links added.
[2020-01-03 18:20] VITALS: BP 139/73
[2020-01-03 20:53] VITALS: BP 148/75
[2020-01-03] MEDS: CEFEPIME 1 GM in IV D5W 50 ML IV SCH (21:00)
[2020-01-03] MEDS: HYDROGEN PEROXIDE 480 ML BOTTLE TP SCH (21:00)
[2020-01-04 00:04] VITALS: BP 144/70
[2020-01-04] MEDS: NEPRO 1,000 ML BOTTLE GT PRN (00:08)
[2020-01-04] MEDS: IPRATROPIUM NEB FS 0.5 MG/2.5 ML AMPUL.NEB NEB SCH ×4 (01:24→20:03)
[2020-01-04] MEDS: ALBUTEROL FS 2.5 MG/0.5 ML VIAL.NEB NEB SCH ×4 (01:24→20:03)
[2020-01-04] MEDS: CLONIDINE HCL 0.1 MG TABLET GT SCH ×3 (05:18→20:52)
[2020-01-04] MEDS: hydrALAZINE HCL 25 MG TABLET GT SCH ×3 (05:18→20:52)
[2020-01-04] MEDS: METOCLOPRAMIDE HCL 10 MG/10 ML UDC GT SCH ×3 (05:18→21:05)
[2020-01-04] MEDS: LABETALOL HCL 300 MG TABLET GT SCH ×3 (05:19→21:05)
[2020-01-04] MEDS: INSULIN REGULAR, HUMAN 100 UNIT/ML 3 ML VIAL SQ PRN ×4 (05:59→23:15)
[2020-01-04] MEDS: BLOOD SUGAR DIAGNOSTIC 1 EACH STRIP IN SCH ×4 (05:59→23:15)
[2020-01-04 06:17] VITALS: BP 138/82
[2020-01-04 07:58] VITALS: BP 126/59
--- NOTE | 2020-01-04 08:00 | NUR ---
Seen and examined by Dr. Treadwell, he said that patient's kidneys are not working well and he may need to have a renal biopsy. He said that he will talk to patient's uncle, Mr. Klein of the plan. NNO given at this time.
--- NOTE | 2020-01-04 08:00 | NUR ---
Seen and examined by Dr. Treadwell, he said that patient's renal function is compromised and he may need a renal biopsy but will discuss it with patient's uncle first. No new order given at this time.
[2020-01-04] MEDS: HYDROGEN PEROXIDE 480 ML BOTTLE TP SCH ×2 (08:24→20:03)
[2020-01-04] MEDS: ACETAMINOPHEN 650 MG/20 ML UDC- SA PATIENTS-PAIN ONLY GT SCH (09:00)
[2020-01-04] MEDS: GENTAMICIN OPTH SOLN 0.3% 5 ML BOTTLE RIGHTEYE SCH ×3 (09:00→17:56)
[2020-01-04] MEDS: FERROUS SULFATE UDC 300 MG/5 ML UDC GT SCH (09:00)
[2020-01-04] MEDS: AMLODIPINE BESYLATE 10 MG TABLET GT SCH (09:00)
[2020-01-04] MEDS: FAMOTIDINE (20 MG) 20 MG TABLET GT SCH (09:00)
[2020-01-04] MEDS: LORATADINE 10 MG TABLET GT SCH (09:00)
[2020-01-04] MEDS: DOXAZOSIN MESYLATE (4 MG) 4 MG TABLET GT SCH ×2 (09:00→20:52)
[2020-01-04] MEDS: CHLORHEXIDINE GLUCONATE 15 ML UDC MM SCH (09:00)
[2020-01-04] MEDS: BASAGLAR SQ SCH ×2 (09:00→21:36)
[2020-01-04] MEDS: BACI/NEOM/POLY B OINT PKT 1 UDPKT PACKET TP SCH ×2 (09:00→21:06)
[2020-01-04] MEDS: VIT B CMPLX 3/FA/VIT C/BIOTIN 1 TAB TABLET GT SCH (09:00)
[2020-01-04] MEDS: NYSTATIN/TRIAMCIN CREAM 15 GM TUBE TP SCH ×2 (09:00→21:06)
[2020-01-04] MEDS: LACTOBACILLUS RHAMNOSUS GG 1 EACH CAP.SPRINK GT SCH ×2 (09:00→17:55)
[2020-01-04] MEDS: ISOSORBIDE DINITRATE (20MG) 20 MG TABLET GT SCH ×3 (09:00→17:56)
[2020-01-04] MEDS: Z GUARD REMEDY 4 OZ OINT TP SCH ×2 (09:00→21:06)
[2020-01-04] MEDS: INSULIN GLARGINE SQ SCH ×2 (09:00→21:36)
[2020-01-04] MEDS: MINOXIDIL (2.5MG) 2.5 MG TABLET GT SCH ×2 (09:00→17:56)
[2020-01-04] MEDS: SITAGLIPTIN PHOSPHATE 50 MG TABLET GT SCH (09:00)
[2020-01-04] MEDS: DOCUSATE SODIUM LIQ 100 MG/10 ML UDC GT SCH ×2 (09:00→20:52)
[2020-01-04] MEDS: MINERAL OIL/PETROL OINT 396 GM JAR TP SCH ×2 (09:00→21:05)
[2020-01-04] MEDS: LEVETIRACETAM SOL (5 ML) 100 MG/ML UDC GT SCH ×2 (09:00→21:05)
--- NOTE | 2020-01-04 09:22 | NUR ---
MDS: Chemical Recovery Operator completed the Television Specialist portion of the Significant Change MDS. The patient is non-verbal, he can communicate by mouthing: yes/no, gestures, thumbs up/down and with facial expressions. The patient is currently on ventilator with trach and G-tube feeding: Nepro 40ml/hr x 20hr. The patients responsible libertarian is his aunt, Millie Klein and uncle, Keith Klein [phone] who are very involved and supportive as they attend every IDT meeting and visit often. The patients last Dental exam was on 09/28/2019 and dental cleaning was on 11/02/2019 by . The patients last Optometry exam by Dr. Ugarte was on 06/03/2019. The patients last Podiatry visit by Dr. Knapp was on 12/30/2019.
[2020-01-04] MEDS: RETACRIT 10,000 UNITS SQ SCH (13:22)
[2020-01-04 15:31] VITALS: BP 140/76
[2020-01-04 18:11] VITALS: BP 143/76
[2020-01-04 20:11] VITALS: BP 155/67
[2020-01-04] MEDS: CEFEPIME 1 GM in IV D5W 50 ML IV SCH (20:58)
[2020-01-05 00:48] VITALS: BP 140/70
[2020-01-05] MEDS: IPRATROPIUM NEB FS 0.5 MG/2.5 ML AMPUL.NEB NEB SCH ×4 (02:09→20:19)
[2020-01-05] MEDS: ALBUTEROL FS 2.5 MG/0.5 ML VIAL.NEB NEB SCH ×4 (02:09→20:19)
[2020-01-05] MEDS: CLONIDINE HCL 0.1 MG TABLET GT SCH ×3 (05:17→21:23)
[2020-01-05] MEDS: METOCLOPRAMIDE HCL 10 MG/10 ML UDC GT SCH ×3 (05:17→21:23)
[2020-01-05] MEDS: hydrALAZINE HCL 25 MG TABLET GT SCH ×3 (05:17→21:22)
[2020-01-05] MEDS: LABETALOL HCL 300 MG TABLET GT SCH ×3 (05:17→21:23)
[2020-01-05] MEDS: BLOOD SUGAR DIAGNOSTIC 1 EACH STRIP IN SCH ×4 (05:55→23:37)
[2020-01-05] MEDS: INSULIN REGULAR, HUMAN 100 UNIT/ML 3 ML VIAL SQ PRN ×4 (05:55→23:38)
[2020-01-05 06:31] VITALS: BP 148/86
[2020-01-05 07:49] VITALS: BP 137/70
[2020-01-05] MEDS: DOXAZOSIN MESYLATE (4 MG) 4 MG TABLET GT SCH ×2 (09:00→21:23)
[2020-01-05] MEDS: FERROUS SULFATE UDC 300 MG/5 ML UDC GT SCH (09:00)
[2020-01-05] MEDS: Z GUARD REMEDY 4 OZ OINT TP SCH ×2 (09:00→21:24)
[2020-01-05] MEDS: SITAGLIPTIN PHOSPHATE 50 MG TABLET GT SCH (09:00)
[2020-01-05] MEDS: DOCUSATE SODIUM LIQ 100 MG/10 ML UDC GT SCH ×2 (09:00→21:23)
[2020-01-05] MEDS: CHLORHEXIDINE GLUCONATE 15 ML UDC MM SCH (09:00)
[2020-01-05] MEDS: BASAGLAR SQ SCH ×2 (09:00→21:24)
[2020-01-05] MEDS: MINERAL OIL/PETROL OINT 396 GM JAR TP SCH ×2 (09:00→21:24)
[2020-01-05] MEDS: VIT B CMPLX 3/FA/VIT C/BIOTIN 1 TAB TABLET GT SCH (09:00)
[2020-01-05] MEDS: FAMOTIDINE (20 MG) 20 MG TABLET GT SCH (09:00)
[2020-01-05] MEDS: BACI/NEOM/POLY B OINT PKT 1 UDPKT PACKET TP SCH ×2 (09:00→21:24)
[2020-01-05] MEDS: LORATADINE 10 MG TABLET GT SCH (09:00)
[2020-01-05] MEDS: ISOSORBIDE DINITRATE (20MG) 20 MG TABLET GT SCH ×3 (09:00→17:15)
[2020-01-05] MEDS: NYSTATIN/TRIAMCIN CREAM 15 GM TUBE TP SCH ×2 (09:00→21:24)
[2020-01-05] MEDS: MINOXIDIL (2.5MG) 2.5 MG TABLET GT SCH ×2 (09:00→17:15)
[2020-01-05] MEDS: AMLODIPINE BESYLATE 10 MG TABLET GT SCH (09:00)
[2020-01-05] MEDS: GENTAMICIN OPTH SOLN 0.3% 5 ML BOTTLE RIGHTEYE SCH ×2 (09:00→12:17)
[2020-01-05] MEDS: LEVETIRACETAM SOL (5 ML) 100 MG/ML UDC GT SCH ×2 (09:00→21:23)
[2020-01-05] MEDS: ACETAMINOPHEN 650 MG/20 ML UDC- SA PATIENTS-PAIN ONLY GT SCH (09:00)
[2020-01-05] MEDS: LACTOBACILLUS RHAMNOSUS GG 1 EACH CAP.SPRINK GT SCH ×2 (09:00→17:14)
[2020-01-05] MEDS: INSULIN GLARGINE SQ SCH ×2 (09:00→21:24)
--- NOTE | 2020-01-05 09:12 | NUR ---
Wheel Chair Update: The pt. was assessed by Physical therapist, Geri Goddard [phone] from [facility] [employer] to potentially get authorization for Tilt-In Space wheelchair from [facility] for patient. JOELLE facilitated a visit with the patient. Per Geri, JOELLE should expect notification from patients insurance: [facility] in the form of a call or mail to the patients mailing address. JOELLE informed the patient's uncle, Keith Klein [phone] who was agreeable to the plan. Addendum: 01/05/20 at 0916 by JOHN LAI Late Entry for 01/03/2020 4:30pm.
[2020-01-05 12:00] VITALS: BP 139/67
[2020-01-05] MEDS: NEPRO 1,000 ML BOTTLE GT PRN (12:17)
[2020-01-05] MEDS: HYDROGEN PEROXIDE 480 ML BOTTLE TP SCH ×2 (13:50→20:20)
--- NOTE | 2020-01-05 15:10 | NUR ---
RT NOTE: PATIENT RECEIVED TRACHED ON MECHANICAL VENT. ALARMS VERIFIED AND AUDIBLE. VENT PLUGGED INTO RED OUTLET. NEW TRACH AND AMBU BAG AT [facility].
[2020-01-05 18:45] VITALS: BP 150/65
--- NOTE | 2020-01-05 20:22 | NUR ---
RT NOTE PT RECEIVED AWAKE/NONVERBAL TRACHED ON MECHANICAL VENTILATION. AMBU BAG/BACK UP TRACH @ BEDSIDE. TX GIVEN, NO ADVERSE REACTIONS NOTED. SX DONE, TRACH SECURED AND PATENT. ALARMS ON AND AUDIBLE. NO SOB NOTED AT THIS TIME. PT TOLERATING CURRENT CPAP SETTINGS WELL. WILL CONTINUE TO MONITOR T/O SHIFT. CONT. PULSE OX CONNECTED. Addendum: 01/05/20 at 2022 by MEGHAN MEHTA RT Amended: Links added.
[2020-01-05] MEDS: CEFEPIME 1 GM in IV D5W 50 ML IV SCH (21:00)
[2020-01-06] VITALS: BP 145/70
[2020-01-06] MEDS: IPRATROPIUM NEB FS 0.5 MG/2.5 ML AMPUL.NEB NEB SCH ×4 (02:07→19:25)
[2020-01-06] MEDS: ALBUTEROL FS 2.5 MG/0.5 ML VIAL.NEB NEB SCH ×4 (02:07→19:25)
[2020-01-06] MEDS: hydrALAZINE HCL 25 MG TABLET GT SCH ×3 (05:58→20:45)
[2020-01-06] MEDS: CLONIDINE HCL 0.1 MG TABLET GT SCH ×3 (05:59→20:45)
[2020-01-06] MEDS: BLOOD SUGAR DIAGNOSTIC 1 EACH STRIP IN SCH ×4 (05:59→23:35)
[2020-01-06] MEDS: LABETALOL HCL 300 MG TABLET GT SCH ×3 (05:59→20:46)
[2020-01-06] MEDS: METOCLOPRAMIDE HCL 10 MG/10 ML UDC GT SCH ×3 (05:59→20:45)
[2020-01-06 06:00] VITALS: BP 147/73
[2020-01-06] MEDS: INSULIN REGULAR, HUMAN 100 UNIT/ML 3 ML VIAL SQ PRN ×4 (06:00→23:35)
[2020-01-06 07:26] LABS: ALBUMIN 3.2 g/dL (3.4-5.0); BASOPHILS # (AUTO) 0.1 /CMM (0.0-0.2); BASOPHILS % (AUTO) 0.7 % (0.0-2.0); BILIRUBIN,TOTAL 0.2 mg/dL (0.2-1.0); EOSINOPHILS % (AUTO) 14.7 % (0.0-6.0); HEMATOCRIT 28 % (39-51); HEMOGLOBIN 9.4 g/dL (13.5-17.5); LYMPHOCYTES # (AUTO) 1.2 /CMM (0.8-4.8); LYMPHOCYTES % (AUTO) 11.7 % (20.0-44.0); MAGNESIUM 2.7 mg/dL (1.8-2.4); MEAN CORPUSCULAR HGB CONC 34 g/dl (31.0-36.0); MEAN CORPUSCULAR VOLUME 87 fL (80-96); MONOCYTES % (AUTO) 9.9 % (2.0-12.0); NEUTROPHILS # (AUTO) 6.6 /CMM (1.8-8.9); PHOSPHORUS 5.3 mg/dL (2.5-4.9); PLATELET COUNT (AUTO) 209 /CMM (150-450); POTASSIUM 4.7 mmol/L (3.5-5.1); RED BLOOD CELL COUNT(AUTO) 3.21 MIL/uL (4.5-6.0); TOTAL PROTEIN, SERUM 7.9 g/dL (6.4-8.2); WHITE BLOOD COUNT (AUTO) 10.4 K/uL (4.3-11.0)
[2020-01-06 07:42] VITALS: BP 129/55
--- NOTE | 2020-01-06 08:00 | NUR ---
Left a message to Dr. Treadwell regarding CBC and BMP result collected today 01/06/20.
[2020-01-06] MEDS: MINOXIDIL (2.5MG) 2.5 MG TABLET GT SCH ×2 (09:00→16:50)
[2020-01-06] MEDS: FAMOTIDINE (20 MG) 20 MG TABLET GT SCH (09:00)
[2020-01-06] MEDS: NYSTATIN/TRIAMCIN CREAM 15 GM TUBE TP SCH ×2 (09:00→20:50)
[2020-01-06] MEDS: BACI/NEOM/POLY B OINT PKT 1 UDPKT PACKET TP SCH ×2 (09:00→20:50)
[2020-01-06] MEDS: Z GUARD REMEDY 4 OZ OINT TP SCH ×2 (09:00→20:50)
[2020-01-06] MEDS: ISOSORBIDE DINITRATE (20MG) 20 MG TABLET GT SCH ×3 (09:00→16:50)
[2020-01-06] MEDS: SITAGLIPTIN PHOSPHATE 50 MG TABLET GT SCH (09:00)
[2020-01-06] MEDS: FERROUS SULFATE UDC 300 MG/5 ML UDC GT SCH (09:00)
[2020-01-06] MEDS: BASAGLAR SQ SCH ×2 (09:00→20:49)
[2020-01-06] MEDS: AMLODIPINE BESYLATE 10 MG TABLET GT SCH (09:00)
[2020-01-06] MEDS: INSULIN GLARGINE SQ SCH ×2 (09:00→20:49)
[2020-01-06] MEDS: MINERAL OIL/PETROL OINT 396 GM JAR TP SCH ×2 (09:00→20:49)
[2020-01-06] MEDS: LACTOBACILLUS RHAMNOSUS GG 1 EACH CAP.SPRINK GT SCH ×2 (09:00→16:50)
[2020-01-06] MEDS: HYDROGEN PEROXIDE 480 ML BOTTLE TP SCH ×2 (09:00→21:06)
[2020-01-06] MEDS: LORATADINE 10 MG TABLET GT SCH (09:00)
[2020-01-06] MEDS: ACETAMINOPHEN 650 MG/20 ML UDC- SA PATIENTS-PAIN ONLY GT SCH (09:00)
[2020-01-06] MEDS: CHLORHEXIDINE GLUCONATE 15 ML UDC MM SCH (09:00)
[2020-01-06] MEDS: VIT B CMPLX 3/FA/VIT C/BIOTIN 1 TAB TABLET GT SCH (09:00)
[2020-01-06] MEDS: LEVETIRACETAM SOL (5 ML) 100 MG/ML UDC GT SCH ×2 (09:00→20:45)
[2020-01-06] MEDS: DOXAZOSIN MESYLATE (4 MG) 4 MG TABLET GT SCH ×2 (09:00→20:45)
[2020-01-06] MEDS: DOCUSATE SODIUM LIQ 100 MG/10 ML UDC GT SCH ×2 (09:00→20:45)
[2020-01-06] MEDS: NEPRO 1,000 ML BOTTLE GT PRN (12:39)
[2020-01-06 13:58] VITALS: BP 137/69
--- NOTE | 2020-01-06 14:00 | NUR ---
Referred CBC and BMP result to Dr. Braun during IDT meeting with Na+ 130, BUN 67, Creat 3.0, Phos 5.3, Magnesium 2.7. No new order given at this time.
--- NOTE | 2020-01-06 16:21 | NUR ---
INTERDISCIPLINARY PLAN OF CARE CONFERENCE took place today. The patients responsible libertarian/ Keith Klein and Millie Klein [phone] were not able to attend or participate via phone conference. Charge nurse discussed the pt. was readmitted on 12/28/2019 with IVF D5 at 100cc/hr; 01/05/2020 CBC /BMP results; Cool aerosol trial on Thursday01/09/2020; and renal biopsy might be needed for pt. per Dr. Treadwell. Dr. Braun and Interdisciplinary team discussed the plan of care in detail. Current orders as well as treatments and medications were reviewed. Please see other disciplines IDT notes for further details.
--- NOTE | 2020-01-06 17:30 | NUR ---
Spoke with Mr. Mustafa resident's uncle, updated family of what was discussed in IDT meeting including the plan to put patient on cool aerosol on Thursday. Asked Mr. Klein if he has spoken with Dr. Treadwell, he said he did spoke with MD when patient was still in acute hospital. Asked whether it was discussed the possibility of doing kidney biopsy. Mr. Klein said Dr. Treadwell is considering doing kidney biopsy but will try to avoid this and will check other things like labs according to MD. He asked whether this procedure will be done here or will here be transferred to acute. Most likely they will do the procedure in acute setting. Reassured Mr. Klein that he will be notified prior to doing any biopsy. Appreciated the call.
[2020-01-06 18:05] VITALS: BP 144/55
[2020-01-06 20:08] VITALS: BP 136/75
[2020-01-06] MEDS: CEFEPIME 1 GM in IV D5W 50 ML IV SCH (21:00)
[2020-01-07 00:30] VITALS: BP 140/69
[2020-01-07] MEDS: IPRATROPIUM NEB FS 0.5 MG/2.5 ML AMPUL.NEB NEB SCH ×3 (01:37→19:15)
[2020-01-07] MEDS: ALBUTEROL FS 2.5 MG/0.5 ML VIAL.NEB NEB SCH ×3 (01:37→19:15)
[2020-01-07] MEDS: CLONIDINE HCL 0.1 MG TABLET GT SCH ×3 (05:28→21:13)
[2020-01-07] MEDS: hydrALAZINE HCL 25 MG TABLET GT SCH ×3 (05:28→21:13)
[2020-01-07] MEDS: METOCLOPRAMIDE HCL 10 MG/10 ML UDC GT SCH ×3 (05:29→21:13)
[2020-01-07] MEDS: LABETALOL HCL 300 MG TABLET GT SCH ×3 (05:29→21:13)
[2020-01-07] MEDS: BLOOD SUGAR DIAGNOSTIC 1 EACH STRIP IN SCH ×4 (05:29→23:56)
[2020-01-07] MEDS: INSULIN REGULAR, HUMAN 100 UNIT/ML 3 ML VIAL SQ PRN ×4 (05:31→23:57)
[2020-01-07 06:00] VITALS: BP 145/73
[2020-01-07 07:45] VITALS: BP 137/62
[2020-01-07] MEDS: HYDROGEN PEROXIDE 480 ML BOTTLE TP SCH ×2 (08:17→21:58)
[2020-01-07] MEDS: BACI/NEOM/POLY B OINT PKT 1 UDPKT PACKET TP SCH (09:00)
[2020-01-07] MEDS: NYSTATIN/TRIAMCIN CREAM 15 GM TUBE TP SCH ×2 (09:00→21:14)
[2020-01-07] MEDS: MINERAL OIL/PETROL OINT 396 GM JAR TP SCH ×2 (09:00→21:14)
[2020-01-07] MEDS: DOXAZOSIN MESYLATE (4 MG) 4 MG TABLET GT SCH ×2 (09:26→21:13)
[2020-01-07] MEDS: LORATADINE 10 MG TABLET GT SCH (09:28)
[2020-01-07] MEDS: DOCUSATE SODIUM LIQ 100 MG/10 ML UDC GT SCH ×2 (09:28→21:13)
[2020-01-07] MEDS: FERROUS SULFATE UDC 300 MG/5 ML UDC GT SCH (09:28)
[2020-01-07] MEDS: ISOSORBIDE DINITRATE (20MG) 20 MG TABLET GT SCH ×3 (09:29→16:49)
[2020-01-07] MEDS: SITAGLIPTIN PHOSPHATE 50 MG TABLET GT SCH (09:29)
[2020-01-07] MEDS: AMLODIPINE BESYLATE 10 MG TABLET GT SCH (09:30)
[2020-01-07] MEDS: LEVETIRACETAM SOL (5 ML) 100 MG/ML UDC GT SCH ×2 (09:30→21:13)
[2020-01-07] MEDS: MINOXIDIL (2.5MG) 2.5 MG TABLET GT SCH ×2 (09:30→16:49)
[2020-01-07] MEDS: ACETAMINOPHEN 650 MG/20 ML UDC- SA PATIENTS-PAIN ONLY GT SCH (09:31)
[2020-01-07] MEDS: FAMOTIDINE (20 MG) 20 MG TABLET GT SCH (09:31)
[2020-01-07] MEDS: CHLORHEXIDINE GLUCONATE 15 ML UDC MM SCH (09:31)
[2020-01-07] MEDS: LACTOBACILLUS RHAMNOSUS GG 1 EACH CAP.SPRINK GT SCH ×2 (09:43→16:52)
[2020-01-07] MEDS: VIT B CMPLX 3/FA/VIT C/BIOTIN 1 TAB TABLET GT SCH (09:43)
[2020-01-07] MEDS: BASAGLAR SQ SCH ×2 (09:44→21:14)
[2020-01-07] MEDS: INSULIN GLARGINE SQ SCH ×2 (09:44→21:14)
[2020-01-07] MEDS: Z GUARD REMEDY 4 OZ OINT TP SCH ×2 (09:44→21:14)
[2020-01-07 12:00] VITALS: BP 148/68
[2020-01-07] MEDS: NEPRO 1,000 ML BOTTLE GT PRN (14:59)
--- NOTE | 2020-01-07 17:43 | NUR ---
RT NOTE PATIENT RECEIVED ON MECHANICAL VENTILATOR WITH ORDERED SETTINGS. ALARMS ON AND AUDIBLE. VENT PLUGGED IN TO THE RED OUTLET. TRACH TUBE IN PLACE, PATENT, AND SECURED WITH TRACH TIE. BACK UP TRACH AND AMBU BAG BY THE BEDSIDE. SHOWS NO SIGN OF ANY DISTRESS AT THIS TIME.
[2020-01-07 18:13] VITALS: BP 155/73
--- NOTE | 2020-01-07 19:57 | NUR ---
PT RECEIVED TRACHED ON [facility] VENT ON MD ORDERED SETTINGS. NO SIGNS OF RESP DISTRESS/SOB NOTED. AIRWAY PATENT AND SECURED. CONDEMNATION ENGINEER DONE. ALARMS SET AND AUDIBLE. AMBUBAG AND SPARE TRACH AT BEDSIDE. VENT CONNECTED TO RED OUTLET. Addendum: 01/07/20 at 1957 by MARTHA ARENAS RT Amended: Links added.
[2020-01-07 20:17] VITALS: BP 157/76
[2020-01-08 00:20] VITALS: BP 123/60
[2020-01-08] MEDS: IPRATROPIUM NEB FS 0.5 MG/2.5 ML AMPUL.NEB NEB SCH ×4 (00:45→19:52)
[2020-01-08] MEDS: ALBUTEROL FS 2.5 MG/0.5 ML VIAL.NEB NEB SCH ×4 (00:46→19:53)
[2020-01-08] MEDS: CLONIDINE HCL 0.1 MG TABLET GT SCH ×3 (05:27→20:40)
[2020-01-08] MEDS: METOCLOPRAMIDE HCL 10 MG/10 ML UDC GT SCH ×3 (05:27→20:40)
[2020-01-08] MEDS: hydrALAZINE HCL 25 MG TABLET GT SCH ×3 (05:27→20:40)
[2020-01-08] MEDS: LABETALOL HCL 300 MG TABLET GT SCH ×3 (05:27→20:40)
[2020-01-08] MEDS: BLOOD SUGAR DIAGNOSTIC 1 EACH STRIP IN SCH ×3 (05:27→17:36)
[2020-01-08] MEDS: INSULIN REGULAR, HUMAN 100 UNIT/ML 3 ML VIAL SQ PRN ×3 (05:28→17:36)
[2020-01-08 06:15] VITALS: BP 154/61
[2020-01-08] MEDS: BISACODYL SUPP (10 MG) 10 MG/SUPP.RECT SUPP.RECT RC PRN (06:50)
[2020-01-08 07:40] VITALS: BP 124/44
[2020-01-08] MEDS: LEVETIRACETAM SOL (5 ML) 100 MG/ML UDC GT SCH ×2 (09:00→20:40)
[2020-01-08] MEDS: ACETAMINOPHEN 650 MG/20 ML UDC- SA PATIENTS-PAIN ONLY GT SCH (09:00)
[2020-01-08] MEDS: Z GUARD REMEDY 4 OZ OINT TP SCH ×2 (09:00→20:41)
[2020-01-08] MEDS: FAMOTIDINE (20 MG) 20 MG TABLET GT SCH (09:00)
[2020-01-08] MEDS: SITAGLIPTIN PHOSPHATE 50 MG TABLET GT SCH (09:00)
[2020-01-08] MEDS: FERROUS SULFATE UDC 300 MG/5 ML UDC GT SCH (09:00)
[2020-01-08] MEDS: CHLORHEXIDINE GLUCONATE 15 ML UDC MM SCH (09:00)
[2020-01-08] MEDS: NYSTATIN/TRIAMCIN CREAM 15 GM TUBE TP SCH ×2 (09:00→20:41)
[2020-01-08] MEDS: LACTOBACILLUS RHAMNOSUS GG 1 EACH CAP.SPRINK GT SCH ×2 (09:00→17:36)
[2020-01-08] MEDS: DOCUSATE SODIUM LIQ 100 MG/10 ML UDC GT SCH ×2 (09:00→20:40)
[2020-01-08] MEDS: AMLODIPINE BESYLATE 10 MG TABLET GT SCH (09:00)
[2020-01-08] MEDS: LORATADINE 10 MG TABLET GT SCH (09:00)
[2020-01-08] MEDS: INSULIN GLARGINE SQ SCH ×2 (09:00→21:12)
[2020-01-08] MEDS: MINERAL OIL/PETROL OINT 396 GM JAR TP SCH ×2 (09:00→20:40)
[2020-01-08] MEDS: VIT B CMPLX 3/FA/VIT C/BIOTIN 1 TAB TABLET GT SCH (09:00)
[2020-01-08] MEDS: MINOXIDIL (2.5MG) 2.5 MG TABLET GT SCH ×2 (09:00→17:36)
[2020-01-08] MEDS: ISOSORBIDE DINITRATE (20MG) 20 MG TABLET GT SCH ×3 (09:00→17:36)
[2020-01-08] MEDS: BASAGLAR SQ SCH ×2 (09:00→21:12)
[2020-01-08] MEDS: DOXAZOSIN MESYLATE (4 MG) 4 MG TABLET GT SCH ×2 (09:00→20:40)
[2020-01-08] MEDS: HYDROGEN PEROXIDE 480 ML BOTTLE TP SCH ×2 (09:47→21:06)
[2020-01-08 16:17] VITALS: BP 126/68
[2020-01-08] MEDS: NEPRO 1,000 ML BOTTLE GT PRN (17:39)
[2020-01-08 18:20] VITALS: BP 139/65
[2020-01-08 19:54] VITALS: BP 147/57
[2020-01-09] VITALS: BP 149/68
[2020-01-09] MEDS: IPRATROPIUM NEB FS 0.5 MG/2.5 ML AMPUL.NEB NEB SCH ×4 (01:40→20:06)
[2020-01-09] MEDS: ALBUTEROL FS 2.5 MG/0.5 ML VIAL.NEB NEB SCH ×4 (01:40→20:07)
[2020-01-09] MEDS: INSULIN REGULAR, HUMAN 100 UNIT/ML 3 ML VIAL SQ PRN ×5 (03:34→23:08)
[2020-01-09] MEDS: METOCLOPRAMIDE HCL 10 MG/10 ML UDC GT SCH ×3 (05:38→20:41)
[2020-01-09] MEDS: CLONIDINE HCL 0.1 MG TABLET GT SCH ×3 (05:38→20:41)
[2020-01-09] MEDS: hydrALAZINE HCL 25 MG TABLET GT SCH ×3 (05:38→20:41)
[2020-01-09] MEDS: LABETALOL HCL 300 MG TABLET GT SCH ×3 (05:38→20:42)
[2020-01-09 06:00] VITALS: BP 160/76
[2020-01-09] MEDS: BLOOD SUGAR DIAGNOSTIC 1 EACH STRIP IN SCH ×5 (06:01→23:08)
[2020-01-09] MEDS: HYDROGEN PEROXIDE 480 ML BOTTLE TP SCH ×2 (07:44→21:00)
[2020-01-09 08:05] VITALS: BP 119/73
[2020-01-09] MEDS: LEVETIRACETAM SOL (5 ML) 100 MG/ML UDC GT SCH ×2 (09:00→20:41)
[2020-01-09] MEDS: ACETAMINOPHEN 650 MG/20 ML UDC- SA PATIENTS-PAIN ONLY GT SCH (09:00)
[2020-01-09] MEDS: ISOSORBIDE DINITRATE (20MG) 20 MG TABLET GT SCH ×3 (09:00→17:43)
[2020-01-09] MEDS: VIT B CMPLX 3/FA/VIT C/BIOTIN 1 TAB TABLET GT SCH (09:00)
[2020-01-09] MEDS: SITAGLIPTIN PHOSPHATE 50 MG TABLET GT SCH (09:00)
[2020-01-09] MEDS: LORATADINE 10 MG TABLET GT SCH (09:00)
[2020-01-09] MEDS: Z GUARD REMEDY 4 OZ OINT TP SCH ×2 (09:00→20:42)
[2020-01-09] MEDS: MINERAL OIL/PETROL OINT 396 GM JAR TP SCH ×2 (09:00→20:42)
[2020-01-09] MEDS: AMLODIPINE BESYLATE 10 MG TABLET GT SCH (09:00)
[2020-01-09] MEDS: LACTOBACILLUS RHAMNOSUS GG 1 EACH CAP.SPRINK GT SCH ×2 (09:00→17:43)
[2020-01-09] MEDS: INSULIN GLARGINE SQ SCH ×2 (09:00→21:26)
[2020-01-09] MEDS: DOCUSATE SODIUM LIQ 100 MG/10 ML UDC GT SCH ×2 (09:00→20:41)
[2020-01-09] MEDS: BASAGLAR SQ SCH ×2 (09:00→21:26)
[2020-01-09] MEDS: MINOXIDIL (2.5MG) 2.5 MG TABLET GT SCH ×2 (09:00→17:44)
[2020-01-09] MEDS: CHLORHEXIDINE GLUCONATE 15 ML UDC MM SCH (09:00)
[2020-01-09] MEDS: NYSTATIN/TRIAMCIN CREAM 15 GM TUBE TP SCH ×2 (09:00→20:42)
[2020-01-09] MEDS: DOXAZOSIN MESYLATE (4 MG) 4 MG TABLET GT SCH ×2 (09:00→20:41)
[2020-01-09] MEDS: FERROUS SULFATE UDC 300 MG/5 ML UDC GT SCH (09:00)
[2020-01-09] MEDS: FAMOTIDINE (20 MG) 20 MG TABLET GT SCH (09:00)
[2020-01-09 11:58] LABS: ABG BASE EXCESS -0.4 mmol/L; ABG PH 7.365 (7.350-7.450); ABG PO2 142.5 mmHg (75.0-100.0); AaDO2 54.7 mmHg; COHb 0.1 % (0.5-1.5); MetHb 0.6 % (0.0-1.5); O2Hb 97.3 % (94.0-97.0); SITE, ABG Left Brachial
--- NOTE | 2020-01-09 13:00 | NUR ---
Resident on weaning trial, ABG done and relayed result to Dr. Braun with order to continue cool aerosol as tolerated and decrease Fi02 to 28% and titrate O2 to keep Spo2 to greater or equal to 94%.
--- NOTE | 2020-01-09 14:28 | NUR ---
Seen and examined by PARACHUTE TAPER DO Alvarez given. Patient tolerating cool aerosol. No new order given.
[2020-01-09 16:15] VITALS: BP 110/45
[2020-01-09] MEDS: NEPRO 1,000 ML BOTTLE GT PRN (17:16)
--- NOTE | 2020-01-09 18:26 | NUR ---
RT NOTE Pt placed on cool aerosol 35% per MD order. Abg drawn and results given to Hernan Caraballo RN. Fio2 titrated to 28%. Pt rested comfortably t/o shift. No respiratory distress or sob noted t/o shift. Vent at bedside on standby.
[2020-01-09 18:40] VITALS: BP 144/73
[2020-01-09] MEDS: BISACODYL SUPP (10 MG) 10 MG/SUPP.RECT SUPP.RECT RC PRN (18:55)
[2020-01-09 20:13] VITALS: BP 142/71
--- NOTE | 2020-01-09 20:16 | NUR ---
RT pt received on cool aerosol at 5 lpm, 28%. trached with portex 7. hob at 30 degrees. ambu bag at head of bed. spare trach at bedside. minimal secretions. no sob. no resp distress. will continue to monitor Addendum: 01/09/20 at 7003 by MEHDI HAUSER RT Amended: Links added.
[2020-01-10 00:51] VITALS: BP 145/76
[2020-01-10] MEDS: IPRATROPIUM NEB FS 0.5 MG/2.5 ML AMPUL.NEB NEB SCH ×4 (02:10→19:31)
[2020-01-10] MEDS: ALBUTEROL FS 2.5 MG/0.5 ML VIAL.NEB NEB SCH ×4 (02:10→19:31)
[2020-01-10] MEDS: CLONIDINE HCL 0.1 MG TABLET GT SCH ×3 (05:26→20:56)
[2020-01-10] MEDS: hydrALAZINE HCL 25 MG TABLET GT SCH ×3 (05:26→20:56)
[2020-01-10] MEDS: LABETALOL HCL 300 MG TABLET GT SCH ×3 (05:27→20:57)
[2020-01-10] MEDS: METOCLOPRAMIDE HCL 10 MG/10 ML UDC GT SCH ×3 (05:27→20:56)
[2020-01-10] MEDS: BLOOD SUGAR DIAGNOSTIC 1 EACH STRIP IN SCH ×4 (06:10→23:14)
[2020-01-10] MEDS: INSULIN REGULAR, HUMAN 100 UNIT/ML 3 ML VIAL SQ PRN ×4 (06:10→23:16)
[2020-01-10 06:29] VITALS: BP 140/70
[2020-01-10 07:16] LABS: BASOPHILS % (AUTO) 0.3 % (0.0-2.0); HEMATOCRIT 27 % (39-51); HEMOGLOBIN 8.9 g/dL (13.5-17.5); LYMPHOCYTES # (AUTO) 1.2 /CMM (0.8-4.8); LYMPHOCYTES % (AUTO) 9.1 % (20.0-44.0); MEAN CORPUSCULAR HGB CONC 34 g/dl (31.0-36.0); MEAN CORPUSCULAR VOLUME 87 fL (80-96); MONOCYTES # (AUTO) 1.5 /CMM (0.1-1.30); MONOCYTES % (AUTO) 11.4 % (2.0-12.0); NEUTROPHILS # (AUTO) 8.7 /CMM (1.8-8.9); NEUTROPHILS % (AUTO) 67.2 % (43.0-81.0); PLATELET COUNT (AUTO) 196 /CMM (150-450); RED BLOOD CELL COUNT(AUTO) 3.05 MIL/uL (4.5-6.0); WHITE BLOOD COUNT (AUTO) 12.9 K/uL (4.3-11.0)
[2020-01-10 07:35] LABS: CALCIUM, SERUM 11.4 mg/dL (8.5-10.1); CREATININE 2.8 mg/dL (0.6-1.3); MAGNESIUM 2.3 mg/dL (1.8-2.4); PHOSPHORUS 4.1 mg/dL (2.5-4.9); POTASSIUM 3.9 mmol/L (3.5-5.1)
[2020-01-10] MEDS: HYDROGEN PEROXIDE 480 ML BOTTLE TP SCH ×2 (07:42→21:00)
[2020-01-10 07:57] VITALS: BP 157/65
[2020-01-10] MEDS: BASAGLAR SQ SCH ×2 (09:00→21:32)
[2020-01-10] MEDS: ACETAMINOPHEN 650 MG/20 ML UDC- SA PATIENTS-PAIN ONLY GT SCH (09:00)
[2020-01-10] MEDS: MINERAL OIL/PETROL OINT 396 GM JAR TP SCH ×2 (09:00→20:57)
[2020-01-10] MEDS: LEVETIRACETAM SOL (5 ML) 100 MG/ML UDC GT SCH ×2 (09:00→20:56)
[2020-01-10] MEDS: LORATADINE 10 MG TABLET GT SCH (09:00)
[2020-01-10] MEDS: FERROUS SULFATE UDC 300 MG/5 ML UDC GT SCH (09:00)
[2020-01-10] MEDS: INSULIN GLARGINE SQ SCH ×2 (09:00→21:32)
[2020-01-10] MEDS: DOCUSATE SODIUM LIQ 100 MG/10 ML UDC GT SCH ×2 (09:00→20:56)
[2020-01-10] MEDS: Z GUARD REMEDY 4 OZ OINT TP SCH ×2 (09:00→20:57)
[2020-01-10] MEDS: DOXAZOSIN MESYLATE (4 MG) 4 MG TABLET GT SCH ×2 (09:00→20:56)
[2020-01-10] MEDS: AMLODIPINE BESYLATE 10 MG TABLET GT SCH (09:00)
[2020-01-10] MEDS: MINOXIDIL (2.5MG) 2.5 MG TABLET GT SCH ×2 (09:00→17:03)
[2020-01-10] MEDS: SITAGLIPTIN PHOSPHATE 50 MG TABLET GT SCH (09:00)
[2020-01-10] MEDS: NYSTATIN/TRIAMCIN CREAM 15 GM TUBE TP SCH ×2 (09:00→20:57)
[2020-01-10] MEDS: LACTOBACILLUS RHAMNOSUS GG 1 EACH CAP.SPRINK GT SCH ×2 (09:00→17:02)
[2020-01-10] MEDS: FAMOTIDINE (20 MG) 20 MG TABLET GT SCH (09:00)
[2020-01-10] MEDS: VIT B CMPLX 3/FA/VIT C/BIOTIN 1 TAB TABLET GT SCH (09:00)
[2020-01-10] MEDS: CHLORHEXIDINE GLUCONATE 15 ML UDC MM SCH (09:00)
[2020-01-10] MEDS: ISOSORBIDE DINITRATE (20MG) 20 MG TABLET GT SCH ×3 (09:00→17:03)
--- NOTE | 2020-01-10 09:25 | NUR ---
Relayed lab results to Dr Treadwell.
[2020-01-10 13:02] VITALS: BP 95/48
--- NOTE | 2020-01-10 14:27 | NUR ---
RT NOTE: RECEIVED PT ON COOL AEROSOL. LITZY WELL. NO RESPIRATORY DISTRESS NOTED. TRACH CHECKED SECURE AND PATENT. SXD AND LAVAGE PT Q ROUND AND NEEDED. TRACH CARE DONE. SPARE TRACH AND AMBU BAG @ BEDSIDE. VENT @ BEDSIDE.
[2020-01-10 18:39] VITALS: BP 139/68
[2020-01-10 20:40] VITALS: BP 120/70
[2020-01-10] MEDS: NEPRO 1,000 ML BOTTLE GT PRN (22:50)
[2020-01-11 00:30] VITALS: BP 144/70
[2020-01-11] MEDS: ALBUTEROL FS 2.5 MG/0.5 ML VIAL.NEB NEB SCH ×4 (01:41→19:57)
[2020-01-11] MEDS: IPRATROPIUM NEB FS 0.5 MG/2.5 ML AMPUL.NEB NEB SCH ×4 (01:41→19:57)
[2020-01-11] MEDS: hydrALAZINE HCL 25 MG TABLET GT SCH ×3 (05:16→20:13)
[2020-01-11] MEDS: CLONIDINE HCL 0.1 MG TABLET GT SCH ×3 (05:16→20:14)
[2020-01-11] MEDS: METOCLOPRAMIDE HCL 10 MG/10 ML UDC GT SCH ×3 (05:16→20:18)
[2020-01-11] MEDS: LABETALOL HCL 300 MG TABLET GT SCH ×3 (05:16→20:15)
[2020-01-11] MEDS: BLOOD SUGAR DIAGNOSTIC 1 EACH STRIP IN SCH ×3 (05:56→17:13)
[2020-01-11] MEDS: INSULIN REGULAR, HUMAN 100 UNIT/ML 3 ML VIAL SQ PRN ×3 (05:56→17:14)
[2020-01-11 06:21] VITALS: BP 135/76
[2020-01-11] MEDS: HYDROGEN PEROXIDE 480 ML BOTTLE TP SCH ×2 (07:45→19:57)
[2020-01-11 07:47] VITALS: BP 154/75
[2020-01-11] MEDS: BASAGLAR SQ SCH ×2 (09:00→21:53)
[2020-01-11] MEDS: INSULIN GLARGINE SQ SCH ×2 (09:00→21:53)
[2020-01-11] MEDS: Z GUARD REMEDY 4 OZ OINT TP SCH ×2 (09:00→20:22)
[2020-01-11] MEDS: NYSTATIN/TRIAMCIN CREAM 15 GM TUBE TP SCH (09:00)
[2020-01-11] MEDS: MINERAL OIL/PETROL OINT 396 GM JAR TP SCH ×2 (09:00→20:22)
[2020-01-11] MEDS: DOCUSATE SODIUM LIQ 100 MG/10 ML UDC GT SCH ×2 (09:48→20:22)
[2020-01-11] MEDS: DOXAZOSIN MESYLATE (4 MG) 4 MG TABLET GT SCH ×2 (09:48→20:20)
[2020-01-11] MEDS: FERROUS SULFATE UDC 300 MG/5 ML UDC GT SCH (09:48)
[2020-01-11] MEDS: LORATADINE 10 MG TABLET GT SCH (09:48)
[2020-01-11] MEDS: LACTOBACILLUS RHAMNOSUS GG 1 EACH CAP.SPRINK GT SCH ×2 (09:48→17:13)
[2020-01-11] MEDS: ISOSORBIDE DINITRATE (20MG) 20 MG TABLET GT SCH ×3 (09:49→17:13)
[2020-01-11] MEDS: LEVETIRACETAM SOL (5 ML) 100 MG/ML UDC GT SCH ×2 (09:49→20:17)
[2020-01-11] MEDS: SITAGLIPTIN PHOSPHATE 50 MG TABLET GT SCH (09:49)
[2020-01-11] MEDS: VIT B CMPLX 3/FA/VIT C/BIOTIN 1 TAB TABLET GT SCH (09:50)
[2020-01-11] MEDS: MINOXIDIL (2.5MG) 2.5 MG TABLET GT SCH ×2 (09:50→17:13)
[2020-01-11] MEDS: CHLORHEXIDINE GLUCONATE 15 ML UDC MM SCH (09:50)
[2020-01-11] MEDS: AMLODIPINE BESYLATE 10 MG TABLET GT SCH (09:50)
[2020-01-11] MEDS: FAMOTIDINE (20 MG) 20 MG TABLET GT SCH (09:50)
[2020-01-11] MEDS: ACETAMINOPHEN 650 MG/20 ML UDC- SA PATIENTS-PAIN ONLY GT SCH (09:50)
[2020-01-11 12:00] VITALS: BP 137/67
[2020-01-11] MEDS: RETACRIT 10,000 UNITS SQ SCH (13:31)
[2020-01-11 18:26] VITALS: BP 148/71
--- NOTE | 2020-01-11 19:56 | NUR ---
Resident had a swallow eval with ST. Patient taken to radiology accompanied by two tech and RT. According to speech therapist the patient passed his swallowing and ordered puree, thin liquid for breakfast and lunch for oral gratification. Resident's uncle and aunt at bedside and ST discussed swallow evaluation result with family.
[2020-01-11 20:08] VITALS: BP 162/79
[2020-01-12] VITALS: BP 138/69
[2020-01-12] MEDS: BLOOD SUGAR DIAGNOSTIC 1 EACH STRIP IN SCH ×5 (00:12→23:21)
[2020-01-12] MEDS: ALBUTEROL FS 2.5 MG/0.5 ML VIAL.NEB NEB SCH ×3 (01:45→13:06)
[2020-01-12] MEDS: IPRATROPIUM NEB FS 0.5 MG/2.5 ML AMPUL.NEB NEB SCH ×4 (01:45→19:55)
[2020-01-12] MEDS: LABETALOL HCL 300 MG TABLET GT SCH ×3 (05:24→20:57)
[2020-01-12] MEDS: CLONIDINE HCL 0.1 MG TABLET GT SCH ×3 (05:25→20:52)
[2020-01-12] MEDS: METOCLOPRAMIDE HCL 10 MG/10 ML UDC GT SCH ×3 (05:25→21:01)
[2020-01-12] MEDS: hydrALAZINE HCL 25 MG TABLET GT SCH ×3 (05:25→20:47)
[2020-01-12 06:00] VITALS: BP 163/70
[2020-01-12 07:45] VITALS: BP 133/56
[2020-01-12] MEDS: HYDROGEN PEROXIDE 480 ML BOTTLE TP SCH ×2 (07:53→20:58)
[2020-01-12] MEDS: VIT B CMPLX 3/FA/VIT C/BIOTIN 1 TAB TABLET GT SCH (09:32)
[2020-01-12] MEDS: LEVETIRACETAM SOL (5 ML) 100 MG/ML UDC GT SCH ×2 (09:32→20:55)
[2020-01-12] MEDS: LACTOBACILLUS RHAMNOSUS GG 1 EACH CAP.SPRINK GT SCH ×2 (09:32→16:59)
[2020-01-12] MEDS: MINOXIDIL (2.5MG) 2.5 MG TABLET GT SCH ×2 (09:32→16:59)
[2020-01-12] MEDS: DOCUSATE SODIUM LIQ 100 MG/10 ML UDC GT SCH ×2 (09:32→21:00)
[2020-01-12] MEDS: DOXAZOSIN MESYLATE (4 MG) 4 MG TABLET GT SCH ×2 (09:32→20:54)
[2020-01-12] MEDS: FERROUS SULFATE UDC 300 MG/5 ML UDC GT SCH (09:32)
[2020-01-12] MEDS: SITAGLIPTIN PHOSPHATE 50 MG TABLET GT SCH (09:32)
[2020-01-12] MEDS: AMLODIPINE BESYLATE 10 MG TABLET GT SCH (09:32)
[2020-01-12] MEDS: FAMOTIDINE (20 MG) 20 MG TABLET GT SCH (09:32)
[2020-01-12] MEDS: LORATADINE 10 MG TABLET GT SCH (09:32)
[2020-01-12] MEDS: ISOSORBIDE DINITRATE (20MG) 20 MG TABLET GT SCH ×3 (09:32→16:59)
[2020-01-12] MEDS: CHLORHEXIDINE GLUCONATE 15 ML UDC MM SCH (09:33)
[2020-01-12] MEDS: ACETAMINOPHEN 650 MG/20 ML UDC- SA PATIENTS-PAIN ONLY GT SCH (09:33)
[2020-01-12] MEDS: Z GUARD REMEDY 4 OZ OINT TP SCH ×2 (09:54→20:58)
[2020-01-12] MEDS: INSULIN GLARGINE SQ SCH ×2 (09:54→21:00)
[2020-01-12] MEDS: MINERAL OIL/PETROL OINT 396 GM JAR TP SCH ×2 (09:54→20:58)
[2020-01-12] MEDS: BASAGLAR SQ SCH ×2 (09:54→21:00)
[2020-01-12 12:00] VITALS: BP 152/74
[2020-01-12] MEDS: NEPRO 1,000 ML BOTTLE GT PRN (12:36)
[2020-01-12] MEDS: INSULIN REGULAR, HUMAN 100 UNIT/ML 3 ML VIAL SQ PRN ×2 (12:37→17:06)
[2020-01-12] MEDS ORDERED: BARIUM SULFATE 148 GM SUSP.RECON PO ONE (14:26)
[2020-01-12] MEDS ORDERED: BARIUM SULFATE 240 ML ORAL.SUSP PO ONE (14:26)
[2020-01-12] MEDS ORDERED: ALBUTEROL FS 2.5 MG/3 ML VIAL.NEB NEB PRN (16:30)
--- NOTE | 2020-01-12 17:05 | NUR ---
RT NOTE RECEIVED PATIENT WITH TRACH ON COOL AEROSOL. TRACH IS PATENT AND SECURED. SPARE TRACH AND BVM IS AT BEDSIDE. PATIENT HAS EQUAL CHEST RISE WITH COARSE AND DIMINISHED BILATERAL BREATH SOUNDS. SUCTION SMALL TO MODERATE AMOUNT OF GREEN THICK SECRETIONS THROUGH OUT THE DAY. Q6 BREATHING TREATMENTS GIVEN WITH NO ADVERSE REACTIONS. Addendum: 01/12/20 at 1706 by DIA PIERRE RT Amended: Links added.
[2020-01-12 18:27] VITALS: BP 145/73
[2020-01-12] MEDS: BISACODYL SUPP (10 MG) 10 MG/SUPP.RECT SUPP.RECT RC PRN (18:37)
[2020-01-12] MEDS: ALBUTEROL FS 2.5 MG/3 ML VIAL.NEB NEB SCH (19:55)
[2020-01-12 20:18] VITALS: BP 150/58
[2020-01-13] VITALS: BP 131/64
[2020-01-13] MEDS: ALBUTEROL FS 2.5 MG/3 ML VIAL.NEB NEB SCH ×4 (01:51→19:19)
[2020-01-13] MEDS: IPRATROPIUM NEB FS 0.5 MG/2.5 ML AMPUL.NEB NEB SCH ×4 (01:51→19:19)
[2020-01-13] MEDS: hydrALAZINE HCL 25 MG TABLET GT SCH ×3 (04:22→20:28)
[2020-01-13] MEDS: CLONIDINE HCL 0.1 MG TABLET GT SCH ×3 (04:24→20:30)
[2020-01-13] MEDS: LABETALOL HCL 300 MG TABLET GT SCH ×3 (04:25→20:40)
[2020-01-13] MEDS: METOCLOPRAMIDE HCL 10 MG/10 ML UDC GT SCH ×3 (04:26→20:33)
[2020-01-13] MEDS: BLOOD SUGAR DIAGNOSTIC 1 EACH STRIP IN SCH ×3 (05:43→17:14)
[2020-01-13] MEDS: INSULIN REGULAR, HUMAN 100 UNIT/ML 3 ML VIAL SQ PRN ×3 (05:47→17:18)
[2020-01-13 06:00] VITALS: BP 140/63
[2020-01-13] MEDS: HYDROGEN PEROXIDE 480 ML BOTTLE TP SCH ×2 (07:31→20:29)
[2020-01-13 07:55] VITALS: BP 136/54
[2020-01-13] MEDS: MINERAL OIL/PETROL OINT 396 GM JAR TP SCH ×2 (09:00→20:39)
[2020-01-13] MEDS: Z GUARD REMEDY 4 OZ OINT TP SCH ×2 (09:00→20:39)
[2020-01-13] MEDS: ISOSORBIDE DINITRATE (20MG) 20 MG TABLET GT SCH ×3 (09:31→17:13)
[2020-01-13] MEDS: FAMOTIDINE (20 MG) 20 MG TABLET GT SCH (09:31)
[2020-01-13] MEDS: MINOXIDIL (2.5MG) 2.5 MG TABLET GT SCH ×2 (09:31→17:14)
[2020-01-13] MEDS: DOCUSATE SODIUM LIQ 100 MG/10 ML UDC GT SCH ×2 (09:31→20:31)
[2020-01-13] MEDS: SITAGLIPTIN PHOSPHATE 50 MG TABLET GT SCH (09:31)
[2020-01-13] MEDS: LACTOBACILLUS RHAMNOSUS GG 1 EACH CAP.SPRINK GT SCH ×2 (09:31→17:13)
[2020-01-13] MEDS: LORATADINE 10 MG TABLET GT SCH (09:31)
[2020-01-13] MEDS: LEVETIRACETAM SOL (5 ML) 100 MG/ML UDC GT SCH ×2 (09:31→20:32)
[2020-01-13] MEDS: FERROUS SULFATE UDC 300 MG/5 ML UDC GT SCH (09:31)
[2020-01-13] MEDS: VIT B CMPLX 3/FA/VIT C/BIOTIN 1 TAB TABLET GT SCH (09:31)
[2020-01-13] MEDS: DOXAZOSIN MESYLATE (4 MG) 4 MG TABLET GT SCH ×2 (09:31→20:30)
[2020-01-13] MEDS: AMLODIPINE BESYLATE 10 MG TABLET GT SCH (09:31)
[2020-01-13] MEDS: INSULIN GLARGINE SQ SCH ×2 (09:32→21:43)
[2020-01-13] MEDS: BASAGLAR SQ SCH ×2 (09:32→21:43)
[2020-01-13] MEDS: CHLORHEXIDINE GLUCONATE 15 ML UDC MM SCH (09:32)
[2020-01-13] MEDS: ACETAMINOPHEN 650 MG/20 ML UDC- SA PATIENTS-PAIN ONLY GT SCH (09:32)
[2020-01-13 12:00] VITALS: BP 153/73
[2020-01-13] MEDS: NEPRO 1,000 ML BOTTLE GT PRN (12:55)
[2020-01-13 18:16] VITALS: BP 128/69
[2020-01-14] VITALS (7 sets, daily range): BP systolic 123–165; BP diastolic 60–79
[2020-01-14] MEDS: BLOOD SUGAR DIAGNOSTIC 1 EACH STRIP IN SCH ×4 (00:12→17:58)
[2020-01-14] MEDS: INSULIN REGULAR, HUMAN 100 UNIT/ML 3 ML VIAL SQ PRN ×4 (00:12→17:58)
[2020-01-14] MEDS: ALBUTEROL FS 2.5 MG/3 ML VIAL.NEB NEB SCH ×4 (01:56→19:50)
[2020-01-14] MEDS: IPRATROPIUM NEB FS 0.5 MG/2.5 ML AMPUL.NEB NEB SCH ×4 (01:56→19:50)
[2020-01-14] MEDS: CLONIDINE HCL 0.1 MG TABLET GT SCH ×3 (05:42→21:05)
[2020-01-14] MEDS: hydrALAZINE HCL 25 MG TABLET GT SCH ×3 (05:42→21:04)
[2020-01-14] MEDS: METOCLOPRAMIDE HCL 10 MG/10 ML UDC GT SCH ×3 (05:43→21:05)
[2020-01-14] MEDS: LABETALOL HCL 300 MG TABLET GT SCH ×3 (05:43→21:05)
[2020-01-14] MEDS: MINERAL OIL/PETROL OINT 396 GM JAR TP SCH ×2 (09:00→21:05)
[2020-01-14] MEDS: Z GUARD REMEDY 4 OZ OINT TP SCH ×2 (09:00→21:05)
[2020-01-14] MEDS: DOXAZOSIN MESYLATE (4 MG) 4 MG TABLET GT SCH ×2 (09:11→21:05)
[2020-01-14] MEDS: HYDROGEN PEROXIDE 480 ML BOTTLE TP SCH ×2 (09:11→21:04)
[2020-01-14] MEDS: DOCUSATE SODIUM LIQ 100 MG/10 ML UDC GT SCH ×2 (09:12→21:05)
[2020-01-14] MEDS: LORATADINE 10 MG TABLET GT SCH (09:12)
[2020-01-14] MEDS: LACTOBACILLUS RHAMNOSUS GG 1 EACH CAP.SPRINK GT SCH ×2 (09:13→17:56)
[2020-01-14] MEDS: FERROUS SULFATE UDC 300 MG/5 ML UDC GT SCH (09:13)
[2020-01-14] MEDS: ISOSORBIDE DINITRATE (20MG) 20 MG TABLET GT SCH ×3 (09:14→17:57)
[2020-01-14] MEDS: SITAGLIPTIN PHOSPHATE 50 MG TABLET GT SCH (09:14)
[2020-01-14] MEDS: LEVETIRACETAM SOL (5 ML) 100 MG/ML UDC GT SCH ×2 (09:14→21:05)
[2020-01-14] MEDS: MINOXIDIL (2.5MG) 2.5 MG TABLET GT SCH ×2 (09:15→17:58)
[2020-01-14] MEDS: VIT B CMPLX 3/FA/VIT C/BIOTIN 1 TAB TABLET GT SCH (09:15)
[2020-01-14] MEDS: AMLODIPINE BESYLATE 10 MG TABLET GT SCH (09:15)
[2020-01-14] MEDS: FAMOTIDINE (20 MG) 20 MG TABLET GT SCH (09:15)
[2020-01-14] MEDS: CHLORHEXIDINE GLUCONATE 15 ML UDC MM SCH (09:16)
[2020-01-14] MEDS: ACETAMINOPHEN 650 MG/20 ML UDC- SA PATIENTS-PAIN ONLY GT SCH (09:16)
[2020-01-14] MEDS: INSULIN GLARGINE SQ SCH ×2 (09:18→21:34)
[2020-01-14] MEDS: BASAGLAR SQ SCH ×2 (09:18→21:34)
[2020-01-14] MEDS: NEPRO 1,000 ML BOTTLE GT PRN (18:03)
[2020-01-15] VITALS: BP 130/60
[2020-01-15] MEDS: INSULIN REGULAR, HUMAN 100 UNIT/ML 3 ML VIAL SQ PRN ×4 (00:01→17:47)
[2020-01-15] MEDS: IPRATROPIUM NEB FS 0.5 MG/2.5 ML AMPUL.NEB NEB SCH ×4 (01:36→20:01)
[2020-01-15] MEDS: ALBUTEROL FS 2.5 MG/3 ML VIAL.NEB NEB SCH ×4 (01:37→20:01)
[2020-01-15] MEDS: BLOOD SUGAR DIAGNOSTIC 1 EACH STRIP IN SCH ×4 (05:50→17:46)
[2020-01-15] MEDS: LABETALOL HCL 300 MG TABLET GT SCH ×3 (05:50→20:37)
[2020-01-15] MEDS: CLONIDINE HCL 0.1 MG TABLET GT SCH ×3 (05:50→20:34)
[2020-01-15] MEDS: METOCLOPRAMIDE HCL 10 MG/10 ML UDC GT SCH ×3 (05:50→20:36)
[2020-01-15] MEDS: hydrALAZINE HCL 25 MG TABLET GT SCH ×3 (05:50→20:33)
[2020-01-15 06:00] VITALS: BP 150/86
[2020-01-15 07:35] VITALS: BP 130/60
[2020-01-15] MEDS: HYDROGEN PEROXIDE 480 ML BOTTLE TP SCH ×2 (07:49→21:25)
[2020-01-15] MEDS: INSULIN GLARGINE SQ SCH ×2 (09:00→21:10)
[2020-01-15] MEDS: AMLODIPINE BESYLATE 10 MG TABLET GT SCH (09:00)
[2020-01-15] MEDS: LORATADINE 10 MG TABLET GT SCH (09:00)
[2020-01-15] MEDS: VIT B CMPLX 3/FA/VIT C/BIOTIN 1 TAB TABLET GT SCH (09:00)
[2020-01-15] MEDS: MINERAL OIL/PETROL OINT 396 GM JAR TP SCH ×2 (09:00→20:38)
[2020-01-15] MEDS: SITAGLIPTIN PHOSPHATE 50 MG TABLET GT SCH (09:00)
[2020-01-15] MEDS: BASAGLAR SQ SCH ×2 (09:00→21:10)
[2020-01-15] MEDS: LEVETIRACETAM SOL (5 ML) 100 MG/ML UDC GT SCH ×2 (09:00→20:36)
[2020-01-15] MEDS: LACTOBACILLUS RHAMNOSUS GG 1 EACH CAP.SPRINK GT SCH ×2 (09:00→17:45)
[2020-01-15] MEDS: MINOXIDIL (2.5MG) 2.5 MG TABLET GT SCH ×2 (09:00→17:45)
[2020-01-15] MEDS: DOXAZOSIN MESYLATE (4 MG) 4 MG TABLET GT SCH ×2 (09:00→20:34)
[2020-01-15] MEDS: DOCUSATE SODIUM LIQ 100 MG/10 ML UDC GT SCH ×2 (09:00→20:35)
[2020-01-15] MEDS: FAMOTIDINE (20 MG) 20 MG TABLET GT SCH (09:00)
[2020-01-15] MEDS: FERROUS SULFATE UDC 300 MG/5 ML UDC GT SCH (09:00)
[2020-01-15] MEDS: CHLORHEXIDINE GLUCONATE 15 ML UDC MM SCH (09:00)
[2020-01-15] MEDS: ISOSORBIDE DINITRATE (20MG) 20 MG TABLET GT SCH ×3 (09:00→17:45)
[2020-01-15] MEDS: ACETAMINOPHEN 650 MG/20 ML UDC- SA PATIENTS-PAIN ONLY GT SCH (09:00)
[2020-01-15] MEDS: Z GUARD REMEDY 4 OZ OINT TP SCH ×2 (09:00→20:38)
[2020-01-15 15:04] VITALS: BP 127/62
[2020-01-15] MEDS: NEPRO 1,000 ML BOTTLE GT PRN (18:11)
[2020-01-15 18:23] VITALS: BP 131/66
[2020-01-15 20:57] VITALS: BP 135/68
--- NOTE | 2020-01-15 21:00 | NUR ---
RN NOTES Seen and examined by Lidia Hoang NP, with NNO.
[2020-01-16] MEDS: BLOOD SUGAR DIAGNOSTIC 1 EACH STRIP IN SCH ×4 (00:07→17:51)
[2020-01-16] MEDS: INSULIN REGULAR, HUMAN 100 UNIT/ML 3 ML VIAL SQ PRN ×4 (00:08→17:52)
[2020-01-16 00:13] VITALS: BP 133/63
[2020-01-16] MEDS: ALBUTEROL FS 2.5 MG/3 ML VIAL.NEB NEB SCH ×4 (01:50→19:21)
[2020-01-16] MEDS: IPRATROPIUM NEB FS 0.5 MG/2.5 ML AMPUL.NEB NEB SCH ×4 (01:50→19:21)
[2020-01-16] MEDS: hydrALAZINE HCL 25 MG TABLET GT SCH ×3 (04:40→20:26)
[2020-01-16] MEDS: METOCLOPRAMIDE HCL 10 MG/10 ML UDC GT SCH ×3 (04:41→20:28)
[2020-01-16] MEDS: CLONIDINE HCL 0.1 MG TABLET GT SCH ×3 (04:41→20:27)
[2020-01-16] MEDS: LABETALOL HCL 300 MG TABLET GT SCH ×3 (04:42→20:29)
[2020-01-16 06:13] VITALS: BP 148/71
[2020-01-16] MEDS: HYDROGEN PEROXIDE 480 ML BOTTLE TP SCH ×2 (07:51→21:00)
[2020-01-16 08:04] VITALS: BP 152/66
[2020-01-16] MEDS: ACETAMINOPHEN 650 MG/20 ML UDC- SA PATIENTS-PAIN ONLY GT SCH (09:00)
[2020-01-16] MEDS: MINERAL OIL/PETROL OINT 396 GM JAR TP SCH ×2 (09:00→20:30)
[2020-01-16] MEDS: FERROUS SULFATE UDC 300 MG/5 ML UDC GT SCH (09:00)
[2020-01-16] MEDS: FAMOTIDINE (20 MG) 20 MG TABLET GT SCH (09:00)
[2020-01-16] MEDS: CHLORHEXIDINE GLUCONATE 15 ML UDC MM SCH (09:00)
[2020-01-16] MEDS: DOXAZOSIN MESYLATE (4 MG) 4 MG TABLET GT SCH ×2 (09:00→20:26)
[2020-01-16] MEDS: AMLODIPINE BESYLATE 10 MG TABLET GT SCH (09:00)
[2020-01-16] MEDS: LEVETIRACETAM SOL (5 ML) 100 MG/ML UDC GT SCH ×2 (09:00→20:28)
[2020-01-16] MEDS: LORATADINE 10 MG TABLET GT SCH (09:00)
[2020-01-16] MEDS: LACTOBACILLUS RHAMNOSUS GG 1 EACH CAP.SPRINK GT SCH ×2 (09:00→17:50)
[2020-01-16] MEDS: ISOSORBIDE DINITRATE (20MG) 20 MG TABLET GT SCH ×3 (09:00→17:50)
[2020-01-16] MEDS: SITAGLIPTIN PHOSPHATE 50 MG TABLET GT SCH (09:00)
[2020-01-16] MEDS: BASAGLAR SQ SCH ×2 (09:00→21:29)
[2020-01-16] MEDS: INSULIN GLARGINE SQ SCH ×2 (09:00→21:29)
[2020-01-16] MEDS: VIT B CMPLX 3/FA/VIT C/BIOTIN 1 TAB TABLET GT SCH (09:00)
[2020-01-16] MEDS: DOCUSATE SODIUM LIQ 100 MG/10 ML UDC GT SCH ×2 (09:00→20:27)
[2020-01-16] MEDS: MINOXIDIL (2.5MG) 2.5 MG TABLET GT SCH ×2 (09:00→17:51)
[2020-01-16] MEDS: Z GUARD REMEDY 4 OZ OINT TP SCH ×2 (09:00→20:30)
[2020-01-16 13:31] VITALS: BP 130/60
--- NOTE | 2020-01-16 17:00 | NUR ---
Seen and examined by DR. Braun, no new order given. On cool aerosol, tolerating well. No s/s of resp. distress.
[2020-01-16 18:10] LABS: CREATININE, URINE 88.4 MG/DL (30.0-125.0); URINE TOTAL PROTEIN 2036.2 mg/dL (0-11.9)
[2020-01-16 18:20] VITALS: BP 132/76
[2020-01-16 19:06] LABS: APPEARANCE,URINE SL CLOUDY (CLEAR); BILIRUBIN,URINE NEGATIVE (NEGATIVE); BLOOD, URINE SMALL Ery/uL (NEGATIVE); COLOR,URINE YELLOW (YELLOW); KETONES,URINE NEGATIVE (NEGATIVE); LEUKOCYTE ESTERASE ,URINE SMALL (NEGATIVE); NITRITE, URINE NEGATIVE (NEGATIVE); PH,URINE 5.5 (5.0-8.0); PROTEIN,URINE >=300 mg/dl (NEGATIVE); UGLUCOSE 250 MG/DL mg/dL (NEGATIVE); UROBILINOGEN,URINE 0.2 EU/dL (0.2)
[2020-01-16 19:19] LABS: BACTERIA,URINE 2+ /HPF (None Seen); SQUAMOUS EPITHELIAL CELL,UR Few /HPF (None Seen); WBC,URINE TOO NUMEROUS TO COUN /HPF (0-3); YEAST,URINE Many /HPF (None Seen)
[2020-01-16 19:32] LABS: EOSINOPHIL,URINE None Seen
[2020-01-16 20:29] VITALS: BP 137/60
[2020-01-17 00:24] VITALS: BP 141/63
[2020-01-17] MEDS: BLOOD SUGAR DIAGNOSTIC 1 EACH STRIP IN SCH ×3 (00:25→12:51)
[2020-01-17] MEDS: INSULIN REGULAR, HUMAN 100 UNIT/ML 3 ML VIAL SQ PRN ×3 (00:27→12:53)
[2020-01-17] MEDS: IPRATROPIUM NEB FS 0.5 MG/2.5 ML AMPUL.NEB NEB SCH ×3 (01:55→13:16)
[2020-01-17] MEDS: ALBUTEROL FS 2.5 MG/3 ML VIAL.NEB NEB SCH ×3 (01:55→13:16)
[2020-01-17] MEDS: hydrALAZINE HCL 25 MG TABLET GT SCH ×2 (05:31→13:02)
[2020-01-17] MEDS: CLONIDINE HCL 0.1 MG TABLET GT SCH ×2 (05:32→13:03)
[2020-01-17] MEDS: METOCLOPRAMIDE HCL 10 MG/10 ML UDC GT SCH ×2 (05:32→13:03)
[2020-01-17] MEDS: LABETALOL HCL 300 MG TABLET GT SCH ×2 (05:33→13:03)
[2020-01-17] MEDS: NEPRO 1,000 ML BOTTLE GT PRN (06:08)
[2020-01-17 06:29] VITALS: BP 148/69
[2020-01-17 06:48] LABS: BASOPHILS # (AUTO) 0.1 /CMM (0.0-0.2); BASOPHILS % (AUTO) 0.7 % (0.0-2.0); EOSINOPHILS % (AUTO) 10.7 % (0.0-6.0); HEMATOCRIT 24 % (39-51); LYMPHOCYTES # (AUTO) 0.9 /CMM (0.8-4.8); LYMPHOCYTES % (AUTO) 8.1 % (20.0-44.0); MEAN CORPUSCULAR HGB CONC 33 g/dl (31.0-36.0); MEAN CORPUSCULAR VOLUME 88 fL (80-96); MONOCYTES # (AUTO) 1.6 /CMM (0.1-1.30); MONOCYTES % (AUTO) 13.6 % (2.0-12.0); NEUTROPHILS # (AUTO) 7.9 /CMM (1.8-8.9); NEUTROPHILS % (AUTO) 66.9 % (43.0-81.0); PLATELET COUNT (AUTO) 204 /CMM (150-450); RED BLOOD CELL COUNT(AUTO) 2.73 MIL/uL (4.5-6.0); WHITE BLOOD COUNT (AUTO) 11.7 K/uL (4.3-11.0)
[2020-01-17] MEDS: HYDROGEN PEROXIDE 480 ML BOTTLE TP SCH (07:48)
[2020-01-17 08:01] VITALS: BP 132/56
[2020-01-17 08:17] LABS: ALBUMIN 2.9 g/dL (3.4-5.0); BILIRUBIN,TOTAL 0.4 mg/dL (0.2-1.0); CALCIUM, SERUM 11.9 mg/dL (8.5-10.1); CREATININE 5.7 mg/dL (0.6-1.3); MAGNESIUM 3.4 mg/dL (1.8-2.4); PHOSPHORUS 5.4 mg/dL (2.5-4.9); POTASSIUM 4.8 mmol/L (3.5-5.1); TOTAL PROTEIN, SERUM 7.3 g/dL (6.4-8.2)
--- NOTE | 2020-01-17 08:37 | NUR ---
Left message for Dr Treadwell regarding abnormal lab results.
[2020-01-17] MEDS: CHLORHEXIDINE GLUCONATE 15 ML UDC MM SCH (09:00)
[2020-01-17] MEDS: DOXAZOSIN MESYLATE (4 MG) 4 MG TABLET GT SCH (09:00)
[2020-01-17] MEDS: VIT B CMPLX 3/FA/VIT C/BIOTIN 1 TAB TABLET GT SCH (09:00)
[2020-01-17] MEDS: MINERAL OIL/PETROL OINT 396 GM JAR TP SCH (09:00)
[2020-01-17] MEDS: MINOXIDIL (2.5MG) 2.5 MG TABLET GT SCH (09:00)
[2020-01-17] MEDS: ISOSORBIDE DINITRATE (20MG) 20 MG TABLET GT SCH ×2 (09:00→13:03)
[2020-01-17] MEDS: ACETAMINOPHEN 650 MG/20 ML UDC- SA PATIENTS-PAIN ONLY GT SCH (09:00)
[2020-01-17] MEDS: FERROUS SULFATE UDC 300 MG/5 ML UDC GT SCH (09:00)
[2020-01-17] MEDS: AMLODIPINE BESYLATE 10 MG TABLET GT SCH (09:00)
[2020-01-17] MEDS: LEVETIRACETAM SOL (5 ML) 100 MG/ML UDC GT SCH (09:00)
[2020-01-17] MEDS: Z GUARD REMEDY 4 OZ OINT TP SCH (09:00)
[2020-01-17] MEDS: LORATADINE 10 MG TABLET GT SCH (09:00)
[2020-01-17] MEDS: BASAGLAR SQ SCH (09:00)
[2020-01-17] MEDS: FAMOTIDINE (20 MG) 20 MG TABLET GT SCH (09:00)
[2020-01-17] MEDS: INSULIN GLARGINE SQ SCH (09:00)
[2020-01-17] MEDS: DOCUSATE SODIUM LIQ 100 MG/10 ML UDC GT SCH (09:00)
[2020-01-17] MEDS: SITAGLIPTIN PHOSPHATE 50 MG TABLET GT SCH (09:00)
[2020-01-17] MEDS: LACTOBACILLUS RHAMNOSUS GG 1 EACH CAP.SPRINK GT SCH (09:00)
--- NOTE | 2020-01-17 13:20 | NUR ---
Relayed abnormal lab result to Dr Treadwell. He saw and examined pt. He ordered to transfer pt to ER for acute kidney injury. Notified Keith Klein. Also notified pt.
--- NOTE | 2020-01-17 13:45 | NUR ---
Transferred pt to ER. Report given to Rafat and Kunal. Notified Dr Braun of transfer. He said he will see pt tomorrow.
[2020-01-17 14:19] VITALS: BP 143/65
[2020-01-17] MEDS ORDERED: SITA100T GT (14:34)
--- NOTE | 2020-01-17 15:27 | NUR ---
RT NOTE RECEIVED PATIENT ON TRACH WITH COOL AEROSOL. TRACH IS PATENT AND SECURED. PATIENT HAS EQUAL CHEST RISE WITH COARSE BILATERAL BREATH SOUNDS. SUCTION SMALL AMOUNT OF THICK GREEN/PINK TINGED SECRETIONS TROUGH OUT THE DAY. SPARE TRACH AND BVM IS AT BEDSIDE. PATIENT WAS TRANSFERRED TO EMERGENCY DEPARTMENT AT 13:45. Addendum: 01/17/20 at 1531 by DIA PIERRE RT Amended: Links added.
--- NOTE | 2020-01-23 13:32 | NUR ---
Bed Hold Notification: JOELLE called the patient's responsible libertarian, Keith Klein [phone] and informed him that this is the last day for the bed hold. JOELLE asked Keith if he was interested in paying out of pocket for bed hold fees. Keith expressed that he could not afford it abut would call the pt.' physician to see if the pt. would be discharged from [facility] anytime soon.
[2020-09-22] MEDS ORDERED: TUBERCULIN,PURIF.PROT.DERIV. 5 TU/0.1 ML VIAL ID SCH ×2 (09:00)
== END 2020-01-17 09:00 | disposition short-term general hospital (02) | DRG 130 ==
LOC: SA
PROVIDERS: ADMIT Internal Medicine; ATTEND Internal Medicine
PROC: 5A1955Z Respiratory Ventilation, Greater than 96 Consecutive Hours (ICD-10-PCS; principal; 2019-11-30)
DX: J96.21 Acute and chronic respiratory failure with hypoxia (principal); G93.41 Metabolic encephalopathy; J18.9 Pneumonia, unspecified organism; E44.0 Moderate protein-calorie malnutrition; N17.9 Acute kidney failure, unspecified; E11.22 Type 2 diabetes mellitus with diabetic chronic kidney disease; E87.0 Hyperosmolality and hypernatremia; I12.0 Hypertensive chronic kidney disease with stage 5 chronic kidney disease or end stage renal disease; N18.6 End stage renal disease; R13.10 Dysphagia, unspecified; E83.52 Hypercalcemia; Z99.11 Dependence on respirator [ventilator] status; Z93.0 Tracheostomy status; B35.1 Tinea unguium; Z99.2 Dependence on renal dialysis; G40.909 Epilepsy, unspecified, not intractable, without status epilepticus; Z93.1 Gastrostomy status; D63.8 Anemia in other chronic diseases classified elsewhere; Z74.01 Bed confinement status; Z86.73 Personal history of transient ischemic attack (TIA), and cerebral infarction without residual deficits; Z79.4 Long term (current) use of insulin; Z90.49 Acquired absence of other specified parts of digestive tract; Z79.84 Long term (current) use of oral hypoglycemic drugs; Z79.51 Long term (current) use of inhaled steroids; Z79.899 Other long term (current) drug therapy; E87.5 Hyperkalemia; D72.829 Elevated white blood cell count, unspecified; N39.0 Urinary tract infection, site not specified; E87.70 Fluid overload, unspecified; R21 Rash and other nonspecific skin eruption
CPT/HCPCS: 31720; 36415; 36600; 71045-TC; 74230-TC; 76770-TC; 80048-TC; 80053-TC; 81000-TC; 82272-TC; 82570-TC; 82728-TC; 82803-TC; 82962-TC; 83540-TC; 83735-TC; 83970; 84100-TC; 84155-TC; 84300-TC; 85025-TC; 85652-TC; 86850-TC; 86921-TC; 87086-TC; 92526; 94002-TC; 94003-TC; 94640-TC; 94760-TC; 94762-TC; 94799-TC; A4217; A4623; A6253; A7526; J0692; J1815; J2405; J7060; J7070; L8501; P9016-BL

== ENCOUNTER 2019-12-22 20:15 | Inpatient (IN) | payer OTHER ==
[~2019-12-22] VITALS: Ht 172.7 cm; Wt 77.1 kg
--- NOTE | 2019-12-22 20:30 | NUR ---
RT Pt transferred to ED due to abnormal labs. Vent is plugged into red outlet w [facility] @ [facility]. Alarms are set and audible. Trach is secured and patent. Pt sx'd and transferred w no complications. Addendum: 12/22/19 at 2030 by ABHIJIT DEE RT Amended: Links added.
--- NOTE | 2019-12-22 20:49 | NUR ---
PT SENT FROM [facility] FOR ABNORMAL LABS HM[facility]. PT IS ALERT AND ORIENTED. PT HAS A TRACHEOSTOMY. NO SOB. BREATHING EVENLY AND UNLABORED.
--- NOTE | 2019-12-22 20:50 | NUR ---
BLOOD DRAWN AND SENT TO LAB
[2019-12-22 20:53] LABS: BASOPHILS # (AUTO) 0.1 /CMM (0.0-0.2); BASOPHILS % (AUTO) 0.5 % (0.0-2.0); EOSINOPHILS % (AUTO) 10.7 % (0.0-6.0); LYMPHOCYTES # (AUTO) 1.2 /CMM (0.8-4.8); LYMPHOCYTES % (AUTO) 9.3 % (20.0-44.0); MEAN CORPUSCULAR HGB CONC 32 g/dl (31.0-36.0); MEAN CORPUSCULAR VOLUME 89 fL (80-96); MONOCYTES # (AUTO) 1.4 /CMM (0.1-1.30); MONOCYTES % (AUTO) 10.9 % (2.0-12.0); NEUTROPHILS # (AUTO) 9.1 /CMM (1.8-8.9); NEUTROPHILS % (AUTO) 68.6 % (43.0-81.0); PLATELET COUNT (AUTO) 207 /CMM (150-450); RED BLOOD CELL COUNT(AUTO) 2.27 MIL/uL (4.5-6.0); WHITE BLOOD COUNT (AUTO) 13.2 K/uL (4.3-11.0)
[2019-12-22 20:54] LABS: HEMATOCRIT 20 % (39-51)
[2019-12-22 20:56] LABS: HEMOGLOBIN 6.5 g/dL (13.5-17.5)
[2019-12-22 21:12] LABS: ALBUMIN 2.6 g/dL (3.4-5.0); BILIRUBIN,DIRECT 0.1 mg/dL (0.0-0.2); BILIRUBIN,TOTAL 0.2 mg/dL (0.2-1.0); CALCIUM, SERUM 10.5 mg/dL (8.5-10.1); CREATININE 3.5 mg/dL (0.6-1.3); POTASSIUM 5.6 mmol/L (3.5-5.1); TOTAL PROTEIN, SERUM 7.6 g/dL (6.4-8.2)
[2019-12-22 21:18] LABS: IRON, SERUM 30 ug/dl (50-175); TOTAL IRON BINDING CAPACITY 172 ug/dl (250-450)
[2019-12-22 21:31] LABS: FERRITIN 291 ng/mL (8-388)
[2019-12-22 21:47] LABS: EOSINOPHILS % (MANUAL) 8 % (0-4); LYMPHOCYTES % (MANUAL) 6 % (16-48); MONOCYTES % (MANUAL) 4 % (0-11.0); NEUTROPHILS % (MANUAL) 82 (42-76)
--- NOTE | 2019-12-22 22:13 | NUR ---
ROOM 116-2 TELE
--- NOTE | 2019-12-22 22:29 | NUR ---
report given to Rita FISCHER for tato.
--- NOTE | 2019-12-22 23:56 | NUR ---
CALLED RT FOR TRANSFER
[2019-12-23] VITALS (10 sets, daily range): BP systolic 144–167; BP diastolic 61–83
--- NOTE | 2019-12-23 01:35 | NUR ---
RN NOTE SPOKE TO ROCÍO WALTON, ORDERED 1 UNIT OF BLOOD AND TO CONTINUE ALL MEDS. WILL CONT CARE.
[2019-12-23] MEDS ORDERED: NEPRO 1,000 ML BOTTLE GT PRN ×2 (02:30→09:00)
[2019-12-23] MEDS ORDERED: DEXTROSE 50%-WATER 50 ML DISP.SYRIN IV PRN (03:00)
[2019-12-23] MEDS: NEPRO 1,000 ML BOTTLE GT PRN (03:57)
[2019-12-23] MEDS ORDERED: ALBUTEROL FS 2.5 MG/0.5 ML VIAL.NEB NEB PRN ×4 (05:30→09:00)
[2019-12-23] MEDS: BLOOD SUGAR DIAGNOSTIC 1 EACH STRIP IN SCH ×4 (06:06→23:31)
--- NOTE | 2019-12-23 07:10 | NUR ---
CERAMIC ARTIST NOTE PATIENT IN BED WITH NO SIGN OF ANY DISTRESS. TOLERATING CPAP WITH NO SIGN OF ANY SOB. PATIENT ON THE MONITOR IS ON SINUS IRMA IN THE 50'S. LT FEMORAL PICC INTACT. ALL SAFETY PRECATUION HAVE BEEN APPLIED. ENDORSED PATIENT TO MORNING SHIFT NURSE FOR SALLY.
[2019-12-23 07:23] LABS: BASOPHILS % (AUTO) 0.3 % (0.0-2.0); EOSINOPHILS % (AUTO) 9.9 % (0.0-6.0); HEMATOCRIT 22 % (39-51); HEMOGLOBIN 7.1 g/dL (13.5-17.5); LYMPHOCYTES # (AUTO) 1.1 /CMM (0.8-4.8); LYMPHOCYTES % (AUTO) 7.2 % (20.0-44.0); MEAN CORPUSCULAR HGB CONC 32 g/dl (31.0-36.0); MEAN CORPUSCULAR VOLUME 89 fL (80-96); MONOCYTES # (AUTO) 1.4 /CMM (0.1-1.30); MONOCYTES % (AUTO) 9.1 % (2.0-12.0); NEUTROPHILS # (AUTO) 11.3 /CMM (1.8-8.9); NEUTROPHILS % (AUTO) 73.5 % (43.0-81.0); PLATELET COUNT (AUTO) 206 /CMM (150-450); WHITE BLOOD COUNT (AUTO) 15.3 K/uL (4.3-11.0)
[2019-12-23 07:33] LABS: CALCIUM, SERUM 10.6 mg/dL (8.5-10.1); CREATININE 3.6 mg/dL (0.6-1.3); MAGNESIUM 2.3 mg/dL (1.8-2.4); PHOSPHORUS 4.8 mg/dL (2.5-4.9); POTASSIUM 5.4 mmol/L (3.5-5.1)
[2019-12-23] MEDS ORDERED: ALBUTEROL FS 2.5 MG/0.5 ML VIAL.NEB NEB SCH ×3 (07:35→09:30)
--- NOTE | 2019-12-23 08:00 | NUR ---
RN NOTE OK PER DR RIVAS TO GIVE TYLENOL PRIOR TO BLOOD TRANSFUSION FOR FEVER 99.0f AXILLARY.
[2019-12-23] MEDS: ACETAMINOPHEN 650 MG/20.3 ML UDC NG PRN ×2 (08:23→20:39)
[2019-12-23] MEDS ORDERED: BISACODYL SUPP (10 MG) 10 MG/SUPP.RECT SUPP.RECT RC PRN ×2 (08:30→09:00)
[2019-12-23] MEDS ORDERED: IPRATROPIUM NEB FS 0.5 MG/2.5 ML AMPUL.NEB NEB PRN ×2 (09:00)
[2019-12-23] MEDS ORDERED: LABETALOL HCL 300 MG TABLET GT SCH (09:00)
[2019-12-23] MEDS ORDERED: RETACRIT 10,000 UNITS SQ SCH (09:00)
[2019-12-23] MEDS ORDERED: BLOOD SUGAR DIAGNOSTIC 1 EACH STRIP IN SCH (09:00)
[2019-12-23] MEDS ORDERED: ONDANSETRON HCL/PF 4 MG/2 ML VIAL IV PRN (09:00)
[2019-12-23] MEDS ORDERED: SITAGLIPTIN PHOSPHATE 50 MG TABLET GT SCH (09:00)
[2019-12-23] MEDS ORDERED: NA PHOS,M-B/NA PHOS,DI-BA 1 EA ENEMA RC PRN (09:00)
[2019-12-23] MEDS ORDERED: INSULIN ASPART/LISPRO 100 UNIT/ML CARTRIDGE SQ PRN (09:00)
[2019-12-23] MEDS ORDERED: ACETAMINOPHEN 650 MG/20 ML UDC- SA PATIENTS-FEVER ONLY GT PRN (09:00)
[2019-12-23] MEDS ORDERED: ACETAMINOPHEN 650 MG/20 ML UDC- SA PATIENTS-PAIN ONLY GT SCH (09:00)
[2019-12-23] MEDS ORDERED: BACI/NEOM/POLY B OINT PKT 1 UDPKT PACKET TP SCH (09:00)
[2019-12-23] MEDS: ACETAMINOPHEN 650 MG/20.3 ML UDC GT SCH (09:00)
[2019-12-23] MEDS ORDERED: IPRATROPIUM NEB FS 0.5 MG/2.5 ML AMPUL.NEB NEB SCH (09:00)
[2019-12-23] MEDS: DOCUSATE SODIUM LIQ 100 MG/10 ML UDC GT SCH ×2 (09:43→20:38)
[2019-12-23] MEDS: FERROUS SULFATE UDC 300 MG/5 ML UDC GT SCH (09:43)
[2019-12-23] MEDS: VIT B CMPLX 3/FA/VIT C/BIOTIN 1 TAB TABLET GT SCH (09:44)
[2019-12-23] MEDS: ISOSORBIDE DINITRATE (20MG) 20 MG TABLET GT SCH ×3 (09:44→16:40)
[2019-12-23] MEDS: AMLODIPINE BESYLATE 10 MG TABLET GT SCH (09:44)
[2019-12-23] MEDS: LORATADINE 10 MG TABLET GT SCH (09:44)
[2019-12-23] MEDS: LINAGLIPTIN 5 MG TABLET GT SCH (09:44)
[2019-12-23] MEDS: LACTOBACILLUS RHAMNOSUS GG 1 EACH CAP.SPRINK GT SCH ×2 (09:45→16:40)
[2019-12-23] MEDS: FAMOTIDINE (20 MG) 20 MG TABLET GT SCH (09:45)
[2019-12-23] MEDS: MINOXIDIL (2.5MG) 2.5 MG TABLET GT SCH ×2 (09:45→16:40)
[2019-12-23] MEDS: DOXAZOSIN MESYLATE (4 MG) 4 MG TABLET GT SCH ×2 (09:45→20:38)
[2019-12-23] MEDS: LEVETIRACETAM SOL (5 ML) 100 MG/ML UDC GT SCH ×2 (09:45→20:38)
[2019-12-23] MEDS: MINERAL OIL/PETROL OINT 396 GM JAR TP SCH ×2 (09:46→21:26)
[2019-12-23] MEDS: Z GUARD REMEDY 4 OZ OINT TP SCH ×2 (09:46→21:27)
[2019-12-23] MEDS: CHLORHEXIDINE GLUCONATE 15 ML UDC MM SCH (09:46)
[2019-12-23] MEDS: BASAGLAR SQ SCH ×2 (09:57→21:31)
[2019-12-23] MEDS: INSULIN GLARGINE SQ SCH ×2 (09:57→21:31)
[2019-12-23] MEDS ORDERED: MINO2.5T2 GT (10:37)
[2019-12-23] MEDS ORDERED: ONDA4TAB5 GT (10:37)
[2019-12-23] MEDS ORDERED: INSU100V7 SQ (10:37)
[2019-12-23] MEDS ORDERED: ALBU2.5V13 IH ×2 (10:37)
[2019-12-23] MEDS ORDERED: LORA10TA7 GT (10:37)
[2019-12-23] MEDS ORDERED: FERR325T23 GT (10:37)
[2019-12-23] MEDS ORDERED: INSU100V42 (10:37)
[2019-12-23 12:46] LABS: CREATININE, URINE 29.2 MG/DL (30.0-125.0); URINE TOTAL PROTEIN 471.7 mg/dL (0-11.9)
--- NOTE | 2019-12-23 12:52 | NUR ---
WOUND CARE CONSULT WOUND CARE RECEIVED CONSULT FOR SACRAL RASHES AND RAISED SKIN LESIONS TO THE BILATERAL BUTTOCKS. WOUND CARE WILL DEFER CONSULT AND TREATMENT PLANS TO PLASTIC SURGICAL TEAM WHO ARE CURRENTLY FOLLOWING. PATIENT WITH DUNCAN AT 10, ALL PRESSURE ULCER PREVENTION MEASURES ARE NOTED TO BE IN PLACE AT THIS TIME. WILL SEE PRN.
[2019-12-23] MEDS: IPRATROPIUM NEB FS 0.5 MG/2.5 ML AMPUL.NEB NEB SCH ×2 (13:05→19:54)
[2019-12-23] MEDS: ALBUTEROL FS 2.5 MG/0.5 ML VIAL.NEB NEB SCH ×2 (13:05→19:54)
[2019-12-23] MEDS: METOCLOPRAMIDE HCL 10 MG/10 ML UDC GT SCH ×2 (13:25→20:39)
[2019-12-23] MEDS: hydrALAZINE HCL 25 MG TABLET GT SCH ×2 (13:28→20:37)
[2019-12-23] MEDS: CLONIDINE HCL 0.1 MG TABLET GT SCH ×2 (13:28→20:37)
[2019-12-23] MEDS: INSULIN REGULAR, HUMAN 100 UNIT/ML 3 ML VIAL SQ PRN ×2 (13:34→23:33)
[2019-12-23] MEDS: HYDROGEN PEROXIDE 480 ML BOTTLE TP SCH ×2 (15:13→21:26)
[2019-12-23] MEDS: NYSTATIN/TRIAMCIN CREAM 15 GM TUBE TP SCH ×2 (15:13→16:40)
[2019-12-23] MEDS: LABETALOL HCL (100MG) 100 MG TABLET GT SCH ×2 (15:14→20:38)
[2019-12-23] MEDS ORDERED: SITA50TA GT (15:39)
[2019-12-23] MEDS ORDERED: FOLI0.8T2 GT (15:39)
[2019-12-23] MEDS ORDERED: ACET-73 GT (15:39)
[2019-12-23] MEDS ORDERED: SENN-168 GT (15:39)
[2019-12-23] MEDS ORDERED: LACT1CAP72 GT (15:39)
[2019-12-23] MEDS ORDERED: INSU100I26 SQ (15:39)
[2019-12-23] MEDS ORDERED: EPOE1000 SQ (15:39)
[2019-12-23] MEDS ORDERED: INSU100V36 SQ (15:39)
[2019-12-23] MEDS: NEOMY SULF/BACITRAC ZN/POLY 15 GM TUBE TP SCH (21:26)
[2019-12-24] VITALS: BP 143/66
[2019-12-24] MEDS: ALBUTEROL FS 2.5 MG/0.5 ML VIAL.NEB NEB SCH ×4 (01:51→20:10)
[2019-12-24] MEDS: IPRATROPIUM NEB FS 0.5 MG/2.5 ML AMPUL.NEB NEB SCH ×4 (01:51→20:09)
[2019-12-24 04:00] VITALS: BP 171/77
[2019-12-24] MEDS: hydrALAZINE HCL 25 MG TABLET GT SCH ×3 (04:30→21:26)
[2019-12-24] MEDS: CLONIDINE HCL 0.1 MG TABLET GT SCH ×3 (04:30→21:26)
[2019-12-24] MEDS: METOCLOPRAMIDE HCL 10 MG/10 ML UDC GT SCH ×3 (04:30→21:25)
[2019-12-24] MEDS: LABETALOL HCL (100MG) 100 MG TABLET GT SCH ×3 (04:31→21:26)
--- NOTE | 2019-12-24 04:32 | NUR ---
RT NOTES RECEIVED PATIENT ON VENT WITH ORDERED SETTINGS. ALARMS ON AN AUDIBLE. VENT PLUGGED IN TO RED OUTLET. TRACH TUBE IN PLACE, PATENT, AND SECURED WITH TRACH TIE.AMBU BAG AND BACK UP TRACH BY THE BEDSIDE. NO RESP DISTRESS AT THIS TIME. Addendum: 12/24/19 at 0446 by LORI LOERA RT Amended: Links added.
[2019-12-24] MEDS: NEPRO 1,000 ML BOTTLE GT PRN (05:03)
[2019-12-24] MEDS: BLOOD SUGAR DIAGNOSTIC 1 EACH STRIP IN SCH ×3 (05:09→17:04)
--- NOTE | 2019-12-24 07:30 | NUR ---
RN CLOSING NOTE PATIENT IS IN BED RESTING WITH HOB ELEVATED. A&O X3. BREATHING IS EVEN AND NON LABORED. NO SOB NOTED AT THIS TIME. ON VENT. ON GTF. GTF KEPT PATENT. ALL DUE MEDS GIVEN AND TOLERATED WELL. PATIENT IS KEPT CLEAN, DRY, AND COMFORTABLE. BED IS LOWERED TO LOWEST POSITION FOR SAFETY. CALL LIGHT IS WITHIN REACH. ENDORSED TO ERIC FISCHER FOR CONTINUATION OF CARE.
[2019-12-24 07:48] LABS: BASOPHILS # (AUTO) 0.1 /CMM (0.0-0.2); BASOPHILS % (AUTO) 0.7 % (0.0-2.0); EOSINOPHILS % (AUTO) 12.5 % (0.0-6.0); HEMATOCRIT 26 % (39-51); HEMOGLOBIN 8.3 g/dL (13.5-17.5); LYMPHOCYTES # (AUTO) 1.1 /CMM (0.8-4.8); LYMPHOCYTES % (AUTO) 8.3 % (20.0-44.0); MEAN CORPUSCULAR HGB CONC 33 g/dl (31.0-36.0); MEAN CORPUSCULAR VOLUME 88 fL (80-96); MONOCYTES # (AUTO) 1.3 /CMM (0.1-1.30); MONOCYTES % (AUTO) 9.7 % (2.0-12.0); NEUTROPHILS # (AUTO) 9.4 /CMM (1.8-8.9); NEUTROPHILS % (AUTO) 68.8 % (43.0-81.0); PLATELET COUNT (AUTO) 227 /CMM (150-450); RED BLOOD CELL COUNT(AUTO) 2.91 MIL/uL (4.5-6.0); WHITE BLOOD COUNT (AUTO) 13.6 K/uL (4.3-11.0)
[2019-12-24 07:51] LABS: ALBUMIN 2.9 g/dL (3.4-5.0); BILIRUBIN,TOTAL 0.3 mg/dL (0.2-1.0); CALCIUM, SERUM 11.1 mg/dL (8.5-10.1); CREATININE 3.5 mg/dL (0.6-1.3); MAGNESIUM 2.3 mg/dL (1.8-2.4); PHOSPHORUS 4.4 mg/dL (2.5-4.9); POTASSIUM 5.3 mmol/L (3.5-5.1); TOTAL PROTEIN, SERUM 8.4 g/dL (6.4-8.2)
[2019-12-24 08:00] VITALS: BP 154/77
[2019-12-24] MEDS: DOXAZOSIN MESYLATE (4 MG) 4 MG TABLET GT SCH ×2 (08:42→21:25)
[2019-12-24] MEDS: AMLODIPINE BESYLATE 10 MG TABLET GT SCH (08:42)
[2019-12-24] MEDS: FAMOTIDINE (20 MG) 20 MG TABLET GT SCH (08:42)
[2019-12-24] MEDS: LORATADINE 10 MG TABLET GT SCH (08:42)
[2019-12-24] MEDS: MINOXIDIL (2.5MG) 2.5 MG TABLET GT SCH ×2 (08:42→17:01)
[2019-12-24] MEDS: VIT B CMPLX 3/FA/VIT C/BIOTIN 1 TAB TABLET GT SCH (08:42)
[2019-12-24] MEDS: LACTOBACILLUS RHAMNOSUS GG 1 EACH CAP.SPRINK GT SCH ×2 (08:42→17:01)
[2019-12-24] MEDS: LINAGLIPTIN 5 MG TABLET GT SCH (08:43)
[2019-12-24] MEDS: LEVETIRACETAM SOL (5 ML) 100 MG/ML UDC GT SCH ×2 (08:44→21:24)
[2019-12-24] MEDS: HYDROGEN PEROXIDE 480 ML BOTTLE TP SCH ×2 (08:44→21:20)
[2019-12-24] MEDS: FERROUS SULFATE UDC 300 MG/5 ML UDC GT SCH (08:44)
[2019-12-24] MEDS: ISOSORBIDE DINITRATE (20MG) 20 MG TABLET GT SCH ×3 (08:44→17:01)
[2019-12-24] MEDS: DOCUSATE SODIUM LIQ 100 MG/10 ML UDC GT SCH ×2 (08:44→21:25)
[2019-12-24] MEDS: NYSTATIN/TRIAMCIN CREAM 15 GM TUBE TP SCH ×2 (08:45→17:01)
[2019-12-24] MEDS: MINERAL OIL/PETROL OINT 396 GM JAR TP SCH ×2 (08:45→21:20)
[2019-12-24] MEDS: Z GUARD REMEDY 4 OZ OINT TP SCH ×2 (08:46→21:19)
[2019-12-24] MEDS: INSULIN GLARGINE SQ SCH ×2 (08:54→21:38)
[2019-12-24] MEDS: BASAGLAR SQ SCH ×2 (08:54→21:38)
[2019-12-24] MEDS: CHLORHEXIDINE GLUCONATE 15 ML UDC MM SCH (08:55)
[2019-12-24] MEDS: ACETAMINOPHEN 650 MG/20.3 ML UDC GT SCH (08:55)
[2019-12-24] MEDS: NEOMY SULF/BACITRAC ZN/POLY 15 GM TUBE TP SCH ×2 (09:00→21:19)
--- NOTE | 2019-12-24 11:26 | NUR ---
PT REC'D TRACH'D ON MECHANICAL VENT WITH CHARTED SETTINGS. PT LITZY TX WELL. SX DONE. PT TRACH IS PATENT AND SECURE. VENT ALARMS ON AND AUDIBLE. VENT PLUGGED INTO RED OUTLET. AMBU BAG AT BEDSIDE. NO SOB NOTED. Addendum: 12/24/19 at 1126 by HILL BIRMINGHAM RT Amended: Links added.
[2019-12-24] MEDS: INSULIN REGULAR, HUMAN 100 UNIT/ML 3 ML VIAL SQ PRN ×3 (11:38→23:55)
[2019-12-24 12:00] VITALS: BP 144/67
[2019-12-24] MEDS ORDERED: CEFTRIAXONE 1 G VIAL IM SCH (12:00)
[2019-12-24] MEDS ORDERED: IV D5W 1,000 ML IV ONE (12:00)
[2019-12-24] MEDS ORDERED: CEFTRIAXONE 1 G in IV D5W 50 ML IV SCH (13:00)
[2019-12-24 13:39] LABS: CHLORIDE,URINE RANDOM 74 mmol/L (55-125); POTASSIUM RNDM,URINE 24 mmol/L (25-125); URINE SODIUM, RANDOM 42 mmol/l (40-220)
[2019-12-24 13:44] LABS: OSMOLALITY,URINE 448 mOS/kg (340-1090)
[2019-12-24 13:58] LABS: APPEARANCE,URINE CLOUDY (CLEAR); BILIRUBIN,URINE NEGATIVE (NEGATIVE); BLOOD, URINE NEGATIVE Ery/uL (NEGATIVE); COLOR,URINE YELLOW (YELLOW); KETONES,URINE NEGATIVE (NEGATIVE); LEUKOCYTE ESTERASE ,URINE MODERATE (NEGATIVE); NITRITE, URINE NEGATIVE (NEGATIVE); PH,URINE 8.5 (5.0-8.0); PROTEIN,URINE >=300 mg/dl (NEGATIVE); UGLUCOSE 250 MG/DL mg/dL (NEGATIVE); UROBILINOGEN,URINE 0.2 EU/dL (0.2)
[2019-12-24 14:10] LABS: BACTERIA,URINE 3+ /HPF (None Seen); CALCIUM OXALATE CRYSTALS,UR Few /HPF (None Seen); SQUAMOUS EPITHELIAL CELL,UR Moderate /HPF (None Seen); WBC,URINE 21-50 /HPF (0-3)
[2019-12-24 14:11] LABS: TRIPLE PHOSPHATE CRYSTAL,UR Many /HPF (None Seen)
[2019-12-24 14:37] LABS: EOSINOPHIL,URINE None Seen
[2019-12-24 16:00] VITALS: BP 135/71
[2019-12-24 20:00] VITALS: BP 165/80
[2019-12-24] MEDS: GENTAMICIN OPTH OINT 0.3% 3.5 G TUBE OP SCH (20:00)
[2019-12-24] MEDS ORDERED: CEFEPIME 1 GM VIAL ONE (21:04)
[2019-12-24] MEDS: CEFEPIME 1 GM in IV D5W 50 ML IV SCH (21:39)
--- NOTE | 2019-12-24 22:47 | NUR ---
TELE-1/CUSTOMER SERVICE LEADER REPORT TO GOVIND FISCHER FOR CONT OF CARE.
--- NOTE | 2019-12-24 22:48 | NUR ---
CIRCUIT WALKER NOTES PATIENT IN BED, AWAKE, ALERT AND ORIENTED 1-2. UNABLE TO SPEAK. ON TRACH PORTEX #7 CPAP 12, TV 500, FIO2 30%, PEEP 5. TOLERATING VENT SETTINGS WELL. SHOWS NO SIGNS OF ACUTE RESPIRATORY DISTRESS, NO ACUTE PAIN. FC IS INTACT, RUNNING CLEAR YELLOW URINE. GTUBE SITE IS CLEAN DRY AND INTACT, FLUSHING WELL. RUNNING NEPRO @ 40ML/HR. IV ON L HAND #20G RUNNING D5W AT 100ML/HR. SHOWS NO SIGNS OF INFILTRATION NO REDNESS. SAFETY PRECAUTIONS IN PLACE. BED IN LOWEST POSITION, LOCKED, AND CALL LIGHT KEPT WITHIN REACH. WILL CONTINUE TO MONITOR.
[2019-12-25] VITALS (8 sets, daily range): BP systolic 142–165; BP diastolic 45–83
[2019-12-25] MEDS: BLOOD SUGAR DIAGNOSTIC 1 EACH STRIP IN SCH ×5 (00:03→23:28)
[2019-12-25] MEDS: IPRATROPIUM NEB FS 0.5 MG/2.5 ML AMPUL.NEB NEB SCH ×4 (01:56→19:34)
[2019-12-25] MEDS: ALBUTEROL FS 2.5 MG/0.5 ML VIAL.NEB NEB SCH ×4 (01:56→19:34)
[2019-12-25] MEDS: hydrALAZINE HCL 25 MG TABLET GT SCH ×3 (04:25→20:39)
[2019-12-25] MEDS: CLONIDINE HCL 0.1 MG TABLET GT SCH ×3 (04:25→20:40)
[2019-12-25] MEDS: LABETALOL HCL (100MG) 100 MG TABLET GT SCH ×3 (04:26→20:40)
[2019-12-25] MEDS: METOCLOPRAMIDE HCL 10 MG/10 ML UDC GT SCH ×3 (04:26→20:40)
[2019-12-25] MEDS: NEPRO 1,000 ML BOTTLE GT PRN (04:27)
--- NOTE | 2019-12-25 06:36 | NUR ---
BRUSH LOADER AND HANDLE ATTACHER NOTES PATIENT IN BED, ASLEEP, ALERT AND ORIENTED 1-2. UNABLE TO SPEAK. ON TRACH PORTEX #7 CPAP 12, TV 500, FIO2 30%, PEEP 5. TOLERATING VENT SETTINGS WELL. SHOWS NO SIGNS OF ACUTE RESPIRATORY DISTRESS, NO ACUTE PAIN. TELE SR 85HR. FC IS INTACT, RUNNING CLEAR YELLOW URINE. GTUBE SITE IS CLEAN DRY AND INTACT, FLUSHING WELL. RUNNING NEPRO @ 40ML/HR. IV ON L HAND #20G CLEAN, DRY AND INTACT. SHOWS NO SIGNS OF INFILTRATION NO REDNESS. ALL DUE MEDICATIONS GIVEN. SAFETY PRECAUTIONS IN PLACE. BED IN LOWEST POSITION, LOCKED, AND CALL LIGHT KEPT WITHIN REACH. WILL ENDORSE TO ONCOMING NURSE.
[2019-12-25 07:39] LABS: BASOPHILS # (AUTO) 0.1 /CMM (0.0-0.2); BASOPHILS % (AUTO) 0.6 % (0.0-2.0); EOSINOPHILS % (AUTO) 12.7 % (0.0-6.0); HEMATOCRIT 27 % (39-51); HEMOGLOBIN 8.8 g/dL (13.5-17.5); LYMPHOCYTES # (AUTO) 1.1 /CMM (0.8-4.8); LYMPHOCYTES % (AUTO) 8.1 % (20.0-44.0); MEAN CORPUSCULAR HGB CONC 32 g/dl (31.0-36.0); MEAN CORPUSCULAR VOLUME 88 fL (80-96); MONOCYTES # (AUTO) 1.4 /CMM (0.1-1.30); MONOCYTES % (AUTO) 10.2 % (2.0-12.0); NEUTROPHILS # (AUTO) 9.6 /CMM (1.8-8.9); NEUTROPHILS % (AUTO) 68.4 % (43.0-81.0); PLATELET COUNT (AUTO) 245 /CMM (150-450); RED BLOOD CELL COUNT(AUTO) 3.08 MIL/uL (4.5-6.0); WHITE BLOOD COUNT (AUTO) 14.1 K/uL (4.3-11.0)
[2019-12-25] MEDS: LACTOBACILLUS RHAMNOSUS GG 1 EACH CAP.SPRINK GT SCH ×2 (09:24→16:43)
[2019-12-25] MEDS: LEVETIRACETAM SOL (5 ML) 100 MG/ML UDC GT SCH ×2 (09:24→20:40)
[2019-12-25] MEDS: DOCUSATE SODIUM LIQ 100 MG/10 ML UDC GT SCH ×2 (09:24→20:40)
[2019-12-25] MEDS: CHLORHEXIDINE GLUCONATE 15 ML UDC MM SCH (09:24)
[2019-12-25] MEDS: FERROUS SULFATE UDC 300 MG/5 ML UDC GT SCH (09:24)
[2019-12-25] MEDS: ACETAMINOPHEN 650 MG/20.3 ML UDC GT SCH (09:24)
[2019-12-25] MEDS: DOXAZOSIN MESYLATE (4 MG) 4 MG TABLET GT SCH ×2 (09:25→20:39)
[2019-12-25] MEDS: FAMOTIDINE (20 MG) 20 MG TABLET GT SCH (09:26)
[2019-12-25] MEDS: VIT B CMPLX 3/FA/VIT C/BIOTIN 1 TAB TABLET GT SCH (09:26)
[2019-12-25] MEDS: AMLODIPINE BESYLATE 10 MG TABLET GT SCH (09:26)
[2019-12-25] MEDS: MINOXIDIL (2.5MG) 2.5 MG TABLET GT SCH ×2 (09:28→16:49)
[2019-12-25] MEDS: ISOSORBIDE DINITRATE (20MG) 20 MG TABLET GT SCH ×3 (09:28→16:48)
[2019-12-25] MEDS: LORATADINE 10 MG TABLET GT SCH (09:28)
[2019-12-25] MEDS: NYSTATIN/TRIAMCIN CREAM 15 GM TUBE TP SCH ×2 (09:30→16:55)
[2019-12-25] MEDS: HYDROGEN PEROXIDE 480 ML BOTTLE TP SCH ×2 (09:31→20:42)
[2019-12-25] MEDS: MINERAL OIL/PETROL OINT 396 GM JAR TP SCH ×2 (09:32→20:42)
[2019-12-25] MEDS: LINAGLIPTIN 5 MG TABLET GT SCH (09:33)
[2019-12-25] MEDS: Z GUARD REMEDY 4 OZ OINT TP SCH ×2 (09:33→21:44)
[2019-12-25] MEDS: BASAGLAR SQ SCH ×2 (09:42→20:53)
[2019-12-25] MEDS: INSULIN GLARGINE SQ SCH ×2 (09:42→20:53)
[2019-12-25 09:49] LABS: CALCIUM, SERUM 10.8 mg/dL (8.5-10.1); CREATININE 3.5 mg/dL (0.6-1.3); POTASSIUM 5.6 mmol/L (3.5-5.1)
[2019-12-25 10:24] LABS: BILIRUBIN,TOTAL 0.3 mg/dL (0.2-1.0); PHOSPHORUS 4.6 mg/dL (2.5-4.9)
[2019-12-25 10:25] LABS: MAGNESIUM 2.1 mg/dL (1.8-2.4); TOTAL PROTEIN, SERUM 8.2 g/dL (6.4-8.2)
--- NOTE | 2019-12-25 11:22 | NUR ---
HASH SLINGER NOTES CHRISTOPHER LIMA AND CAROLINE WERE NOT AVAILABLE AT 0900. CALLED PHARMACY AND RECEIVED IT AT 1122.
[2019-12-25] MEDS: GENTAMICIN OPTH OINT 0.3% 3.5 G TUBE OP SCH ×3 (11:24→16:53)
[2019-12-25] MEDS: NEOMY SULF/BACITRAC ZN/POLY 15 GM TUBE TP SCH ×2 (11:24→21:00)
--- NOTE | 2019-12-25 12:38 | NUR ---
MUD CLEANER OPERATOR NOTES PATIENT POTASSIUM LEVEL 5.5 , DR MARTINEZ NOTIFIED AND ORDERED KEYEXALATE 30 GM X1.
--- NOTE | 2019-12-25 12:53 | NUR ---
BURNISHER AND BUMPER NOTES PATIENT`S BLOOD GLUCOSE LEVEL IS 103 MG/DL NO INSULIN ADMINISTRATED PER SLIDING SCALES.
[2019-12-25] MEDS ORDERED: SODIUM POLYSTYRENE SULFONATE 15 G/60 ML BOTTLE GT ONE (13:00)
[2019-12-25] MEDS: CEFEPIME 1 GM in IV D5W 50 ML IV SCH (17:59)
--- NOTE | 2019-12-25 18:01 | NUR ---
RT END OF THE SHIFT REPORTS, PT. 34 Y OLD MALE REC. TRACH'D PORTEX # 7 AWAKE ON VENT WITH NOTED SETTINGS. ALARMS ARE SET AND FUNCTIONAL, VENT PLUGGED IN TO RED OUTLET. TRACH TUBE IN PLACE, SECURED, HME CHANGED, LIEUTENANT SHIFT SUPERVISOR DONE, AMBU BAG HHN GIVEN INLINE AND NO ADVERSE REACTION NOTED NO RESP DISTRESS AT THIS TIME. PT. STABLE AND WILL PASS REPORT TO PM SHIFT. Addendum: 12/25/19 at 1804 by SHAWN CASTILLO RT Amended: Links added.
[2019-12-25] MEDS: INSULIN REGULAR, HUMAN 100 UNIT/ML 3 ML VIAL SQ PRN ×2 (18:03→23:34)
--- NOTE | 2019-12-25 19:20 | NUR ---
RN NOTE RECEIVED PATIENT IN BED RESTING WITH HOB ELEVATED. ON VENT. SP02 @ 100%. IN NO APPARENT DISTRESS NOTED AT THIS TIME. A&O X3. ABLE TO NOD YES OR NO. ON GTF NEPHRO @ 40 ML/HR. ON CANNON. CALL LIGHT IS WITHIN REACH. WILL CONTINUE TO MONITOR.
[2019-12-25 19:34] LABS: OCCULT BLOOD STOOL NEGATIVE (NEGATIVE)
--- NOTE | 2019-12-25 19:52 | NUR ---
MALTER OPERATOR NOTES PATIENT IN BED A/OX 2 MOUTHS WORDS. ALL NEEDS ATTENDED. NO RESIDUAL NOTED FROM GTUBE , PATIENT TOLERATING FEEDING WELL. NO SOB OR DISCOMFORT NOTED AT THIS TIME.GTUBE FLUSHED Q 4 HOURS WITH 250 ML FREE WATER. BED AT THE LOWEST POSITION LOCKED, CALL LIGHT WITHIN REACH, ENDORSED TO CIVIL ENGINEERING SPECIALIST NURSE FOR SALLY.
[2019-12-26] VITALS (8 sets, daily range): BP systolic 134–164; BP diastolic 57–73
[2019-12-26] MEDS: ALBUTEROL FS 2.5 MG/0.5 ML VIAL.NEB NEB SCH ×4 (01:38→19:46)
[2019-12-26] MEDS: IPRATROPIUM NEB FS 0.5 MG/2.5 ML AMPUL.NEB NEB SCH ×4 (01:38→19:46)
[2019-12-26] MEDS: hydrALAZINE HCL 25 MG TABLET GT SCH ×3 (05:00→21:16)
[2019-12-26] MEDS: CLONIDINE HCL 0.1 MG TABLET GT SCH ×3 (05:01→21:16)
[2019-12-26] MEDS: METOCLOPRAMIDE HCL 10 MG/10 ML UDC GT SCH ×3 (05:01→21:15)
[2019-12-26] MEDS: LABETALOL HCL (100MG) 100 MG TABLET GT SCH ×3 (05:01→21:16)
[2019-12-26] MEDS: BLOOD SUGAR DIAGNOSTIC 1 EACH STRIP IN SCH ×3 (05:10→18:30)
--- NOTE | 2019-12-26 07:00 | NUR ---
RN CLOSING NOTE PATIENT IS IN BED RESTING WITH HOB ELEVATED. ON VENT. BREATHING EVEN AND NON LABORED. NO SOB NOTED. IN NO APPARENT DISTRESS. DUE MEDS GIVEN AND TOLERATED WELL. PATIENT IS KEPT CLEAN, DRY, AND COMFORTABLE. CALL LIGHT IS WITHIN EASY REACH. BED IS LOWERED TO LOWEST POSITION FOR SAFETY. WILL ENDORSE TO AM SHIFT NURSE FOR CONTINUATION OF CARE.
--- NOTE | 2019-12-26 07:20 | NUR ---
RN OPENING NOTE: RECEIVED PATIENT IN BED. AWAKE AND ALERT. ABLE TO MAKE NEEDS KNOWN BY RESPONDING TO YES/NO QUESTIONS. ON MECHANICAL VENTILATION WITH ORDERED SETTINGS AND TOLERATING WELL, NO SOB AND NOT IN RESPIRATORY DISTRESS. ON CARDIAC MONITORING WITH SINUS RHYTHM NOTED. IV SITE CLEAN, DRY AND SECURE. NO PAIN NOTED. GTUBE IN PLACE AND PATENT, FEEDING OF NEPRO 40MLS/HR TOLERATED WELL WITH NO RESIDUALS NOTED. CALL LIGHT IN REACH. BED LOCKED, LOW AND AT SEMI-BRANDT'S POSITION. NEEDS ANTICIPATED. SIDE RAILS UP X3. WILL CONTINUE TO MONITOR.
[2019-12-26] MEDS: DOCUSATE SODIUM LIQ 100 MG/10 ML UDC GT SCH ×2 (08:49→21:15)
[2019-12-26] MEDS: ACETAMINOPHEN 650 MG/20.3 ML UDC GT SCH (08:49)
[2019-12-26] MEDS: LEVETIRACETAM SOL (5 ML) 100 MG/ML UDC GT SCH ×2 (08:49→21:15)
[2019-12-26] MEDS: CHLORHEXIDINE GLUCONATE 15 ML UDC MM SCH (08:49)
[2019-12-26] MEDS: FERROUS SULFATE UDC 300 MG/5 ML UDC GT SCH (08:49)
[2019-12-26] MEDS: LINAGLIPTIN 5 MG TABLET GT SCH (08:50)
[2019-12-26] MEDS: AMLODIPINE BESYLATE 10 MG TABLET GT SCH (08:50)
[2019-12-26] MEDS: ISOSORBIDE DINITRATE (20MG) 20 MG TABLET GT SCH ×3 (08:50→17:11)
[2019-12-26] MEDS: LACTOBACILLUS RHAMNOSUS GG 1 EACH CAP.SPRINK GT SCH ×2 (08:50→17:11)
[2019-12-26] MEDS: FAMOTIDINE (20 MG) 20 MG TABLET GT SCH (08:50)
[2019-12-26] MEDS: VIT B CMPLX 3/FA/VIT C/BIOTIN 1 TAB TABLET GT SCH (08:50)
[2019-12-26] MEDS: MINOXIDIL (2.5MG) 2.5 MG TABLET GT SCH ×2 (08:50→17:11)
[2019-12-26] MEDS: DOXAZOSIN MESYLATE (4 MG) 4 MG TABLET GT SCH ×2 (08:51→21:16)
[2019-12-26] MEDS: LORATADINE 10 MG TABLET GT SCH (08:51)
[2019-12-26] MEDS: Z GUARD REMEDY 4 OZ OINT TP SCH ×2 (09:19→21:58)
[2019-12-26] MEDS: NEOMY SULF/BACITRAC ZN/POLY 15 GM TUBE TP SCH ×2 (09:20→21:58)
[2019-12-26] MEDS: MINERAL OIL/PETROL OINT 396 GM JAR TP SCH ×2 (09:20→21:57)
[2019-12-26] MEDS: NYSTATIN/TRIAMCIN CREAM 15 GM TUBE TP SCH ×2 (09:20→17:12)
[2019-12-26] MEDS: GENTAMICIN OPTH OINT 0.3% 3.5 G TUBE OP SCH ×3 (09:21→17:12)
[2019-12-26] MEDS: INSULIN GLARGINE SQ SCH ×2 (09:29→21:56)
[2019-12-26] MEDS: BASAGLAR SQ SCH ×2 (09:29→21:56)
--- NOTE | 2019-12-26 10:15 | NUR ---
rn note: received call from Reva wound nurse about wound consult made for patient's issue on his right eye redness and discharge. Informed that wound consult does not cover issue specified and to inform MD regarding this. Checked consult notes and MAYRA Saeed from ID is on the case and has prescribed treatment for said issue. Addendum: 12/26/19 at 1104 by FAWN LAURENT RN MESSAGE WAS ALSO RELAYED TO DR. DUTTON.
--- NOTE | 2019-12-26 10:30 | NUR ---
RT NOTE Spoke with Dr. Braun. He wants to continue with current settings and hold abg until the patient improves.
[2019-12-26 11:07] LABS: COMPLEMENT C3, SERUM 172 mg/dL (82-167); COMPLEMENT C4, SERUM 52 mg/dL (14-44)
[2019-12-26] MEDS: HYDROGEN PEROXIDE 480 ML BOTTLE TP SCH ×2 (14:23→21:57)
--- NOTE | 2019-12-26 17:10 | NUR ---
PT REC'D TRACH'D ON MECHANICAL VENT WITH CHARTED SETTINGS. PT LITZY TX WELL. SX DONE. PT TRACH IS PATENT AND SECURE. VENT ALARMS ON AND AUDIBLE. VENT PLUGGED INTO RED OUTLET. AMBU BAG AT BEDSIDE. NO SOB NOTED. Addendum: 12/26/19 at 1740 by ABHIJIT DEE RT Amended: Links added.
--- NOTE | 2019-12-26 18:55 | NUR ---
RN CLOSING NOTE: PATIENT STILL IN BED. AWAKE AND ALERT. ABLE TO MAKE NEEDS KNOWN BY RESPONDING TO YES/NO QUESTIONS. NO ACUTE CHANGES NOTED ON SHIFT. ON MECHANICAL VENTILATION WITH ORDERED SETTINGS AND TOLERATING WELL, NO SOB AND NOT IN RESPIRATORY DISTRESS. ON CARDIAC MONITORING WITH SINUS RHYTHM NOTED. IV SITE CLEAN, DRY AND SECURE. NO PAIN NOTED. GTUBE IN PLACE AND PATENT, FEEDING OF NEPRO 40MLS/HR TOLERATED WELL WITH NO RESIDUALS NOTED. TREATMENT RENDERED ORDERED. CALL LIGHT IN REACH. BED LOCKED, LOW AND AT SEMI-BRANDT'S POSITION. NEEDS ANTICIPATED. SIDE RAILS UP X3. WILL CONTINUE TO MONITOR. WILL ENDORSED TO ONCOMING SHIFT FOR SALLY.
--- NOTE | 2019-12-26 19:34 | NUR ---
IT CONSULTING MANAGER OPENING NOTE: RECEIVED PATIENT IN BED. AWAKE AND ALERT. ABLE TO MAKE NEEDS KNOWN BY RESPONDING TO YES/NO QUESTIONS. ON MECHANICAL VENTILATION WITH ORDERED SETTINGS AND TOLERATING WELL, NO SOB AND NOT IN RESPIRATORY DISTRESS. ON CARDIAC MONITORING WITH SR. IV ON L HAND #20, SITE CLEAN, NO S/S OF INFILTRATION NOTED. NO COMPLAIN OF PAIN AT THIS TIME. GTUBE IN PLACE AND PATENT, FEEDING OF NEPRO 40MLS/HR TOLERATED WELL. CALL LIGHT IN REACH. BED LOCKED, LOW AND AT SEMI-BRANDT'S POSITION. SIDE RAILS UP X3. WILL CONTINUE TO MONITOR.
[2019-12-26] MEDS: CEFEPIME 1 GM in IV D5W 50 ML IV SCH (19:42)
[2019-12-26] MEDS: NEPRO 1,000 ML BOTTLE GT PRN (23:11)
[2019-12-27] VITALS (8 sets, daily range): BP systolic 133–166; BP diastolic 59–70
[2019-12-27] MEDS: IPRATROPIUM NEB FS 0.5 MG/2.5 ML AMPUL.NEB NEB SCH ×4 (00:59→19:54)
[2019-12-27] MEDS: ALBUTEROL FS 2.5 MG/0.5 ML VIAL.NEB NEB SCH ×4 (00:59→19:54)
[2019-12-27] MEDS: BLOOD SUGAR DIAGNOSTIC 1 EACH STRIP IN SCH ×4 (01:33→16:52)
[2019-12-27] MEDS: hydrALAZINE HCL 25 MG TABLET GT SCH ×3 (04:54→21:46)
[2019-12-27] MEDS: CLONIDINE HCL 0.1 MG TABLET GT SCH ×3 (04:55→21:46)
[2019-12-27] MEDS: LABETALOL HCL (100MG) 100 MG TABLET GT SCH ×3 (04:55→21:47)
[2019-12-27] MEDS: METOCLOPRAMIDE HCL 10 MG/10 ML UDC GT SCH ×3 (04:56→21:46)
--- NOTE | 2019-12-27 06:05 | NUR ---
WOUND CARE CONSULT WOUND CARE RECEIVED CONSULT FOR RIGHT EYE INNER CANTHUS REDNESS AND DISCHARGE. WOUND CARE WILL DEFER TO PRIMARY MD FOR THIS CONSULT.
[2019-12-27 07:11] LABS: BASOPHILS # (AUTO) 0.1 /CMM (0.0-0.2); BASOPHILS % (AUTO) 0.7 % (0.0-2.0); HEMATOCRIT 26 % (39-51); HEMOGLOBIN 8.5 g/dL (13.5-17.5); LYMPHOCYTES # (AUTO) 1.3 /CMM (0.8-4.8); LYMPHOCYTES % (AUTO) 8.5 % (20.0-44.0); MEAN CORPUSCULAR HGB CONC 33 g/dl (31.0-36.0); MEAN CORPUSCULAR VOLUME 87 fL (80-96); MONOCYTES # (AUTO) 1.3 /CMM (0.1-1.30); NEUTROPHILS # (AUTO) 9.9 /CMM (1.8-8.9); NEUTROPHILS % (AUTO) 66.8 % (43.0-81.0); PLATELET COUNT (AUTO) 251 /CMM (150-450); RED BLOOD CELL COUNT(AUTO) 2.97 MIL/uL (4.5-6.0); WHITE BLOOD COUNT (AUTO) 14.8 K/uL (4.3-11.0)
[2019-12-27 07:30] LABS: CALCIUM, SERUM 10.3 mg/dL (8.5-10.1); CREATININE 3.5 mg/dL (0.6-1.3); MAGNESIUM 2.2 mg/dL (1.8-2.4); PHOSPHORUS 4.4 mg/dL (2.5-4.9); POTASSIUM 4.1 mmol/L (3.5-5.1)
--- NOTE | 2019-12-27 08:00 | NUR ---
RN NOTES RECEIVED PATIENT IN THE BED VENT /TRACHEA DEPENDENT, EYES OPEN FOLLOWED BUT UNABLE TO VERBALIZE, ALSO ELEVATING HAND TRYING TO SHOW SOMETHING. PATIENT HAS NO ACUTE RESPIRATORY DISTRESS, V/S STABLE, BS-155 MG/DL COVERAGE GIVEN, ADMINISTERED SCHEDULED MEDICATION VIA GT, PLACEMENT AND RESIDUAL CHECKED.INFUSING NEPRO 1.8 40 ML/HR INTACT. FLASHED WITH 150 ML OF WATER. KEEP HOB ELEVATED FOR ASPIRATION PRECAUTION, ASSIST TURN AND REPOSTION Q 2 HR. F/C DRAINING LIGHT YELLOW OUTPUT. CALL LIGHT WITHIN TO TEACH. ALSO RT WITH THE BED FOR BREATHING TREATMENT.
--- NOTE | 2019-12-27 09:11 | NUR ---
DEDENTER CLOSING NOTE: PATIENT IN BED RESTING. AWAKE AND ALERT. ABLE TO MAKE NEEDS KNOWN BY RESPONDING TO YES/NO QUESTIONS. ON MECHANICAL VENTILATION WITH ORDERED SETTINGS AND TOLERATING WELL, NO SOB AND NOT IN RESPIRATORY DISTRESS. ON CARDIAC MONITORING WITH SR. IV ON L HAND #20, SITE CLEAN, NO S/S OF INFILTRATION NOTED. NO COMPLAIN OF PAIN AT THIS TIME. G TUBE IN PLACE AND PATENT, FEEDING OF NEPRO 40MLS/HR TOLERATED WELL. CALL LIGHT IN REACH. BED LOCKED, LOW AND AT SEMI-BRANDT'S POSITION. SIDE RAILS UP X3. ENDORSED THE PATIENT TO AM RN FOR SALLY.
[2019-12-27] MEDS: ACETAMINOPHEN 650 MG/20.3 ML UDC GT SCH (10:46)
[2019-12-27] MEDS: LEVETIRACETAM SOL (5 ML) 100 MG/ML UDC GT SCH ×2 (10:47→21:47)
[2019-12-27] MEDS: CHLORHEXIDINE GLUCONATE 15 ML UDC MM SCH (10:47)
[2019-12-27] MEDS: FERROUS SULFATE UDC 300 MG/5 ML UDC GT SCH (10:47)
[2019-12-27] MEDS: AMLODIPINE BESYLATE 10 MG TABLET GT SCH (10:47)
[2019-12-27] MEDS: VIT B CMPLX 3/FA/VIT C/BIOTIN 1 TAB TABLET GT SCH (10:48)
[2019-12-27] MEDS: FAMOTIDINE (20 MG) 20 MG TABLET GT SCH (10:48)
[2019-12-27] MEDS: LORATADINE 10 MG TABLET GT SCH (10:48)
[2019-12-27] MEDS: ISOSORBIDE DINITRATE (20MG) 20 MG TABLET GT SCH ×3 (10:48→16:52)
[2019-12-27] MEDS: LACTOBACILLUS RHAMNOSUS GG 1 EACH CAP.SPRINK GT SCH ×2 (10:48→16:51)
[2019-12-27] MEDS: MINOXIDIL (2.5MG) 2.5 MG TABLET GT SCH ×2 (10:49→16:52)
[2019-12-27] MEDS: DOCUSATE SODIUM LIQ 100 MG/10 ML UDC GT SCH ×2 (10:50→21:46)
[2019-12-27] MEDS: DOXAZOSIN MESYLATE (4 MG) 4 MG TABLET GT SCH ×2 (10:50→21:48)
[2019-12-27] MEDS: LINAGLIPTIN 5 MG TABLET GT SCH (10:50)
[2019-12-27] MEDS: MINERAL OIL/PETROL OINT 396 GM JAR TP SCH ×2 (10:51→21:56)
[2019-12-27] MEDS: GENTAMICIN OPTH OINT 0.3% 3.5 G TUBE OP SCH ×3 (10:51→16:56)
[2019-12-27] MEDS: HYDROGEN PEROXIDE 480 ML BOTTLE TP SCH ×2 (10:52→21:57)
[2019-12-27] MEDS: NYSTATIN/TRIAMCIN CREAM 15 GM TUBE TP SCH ×2 (10:52→16:56)
[2019-12-27] MEDS: NEOMY SULF/BACITRAC ZN/POLY 15 GM TUBE TP SCH ×2 (10:53→21:57)
[2019-12-27] MEDS: Z GUARD REMEDY 4 OZ OINT TP SCH ×2 (10:53→21:58)
[2019-12-27] MEDS: BASAGLAR SQ SCH ×2 (10:58→21:55)
[2019-12-27] MEDS: INSULIN GLARGINE SQ SCH ×2 (10:58→21:55)
--- NOTE | 2019-12-27 12:00 | NUR ---
RN NOTES BS-175 MG DL, INFUSING NEPRO 1.8 AT 40 ML/HR INTACT, KEEP HOB ELEVATED FOR ASPIRATION PRECAUTION, V/S STABLE. ADMINISTERED SCHEDULED MEDICATION VIA GT. ASSIST TURN AND REPOSTION Q 2 HR. F/C DRAINING LIGHT YELLOW OUTPUT. CONTINUED MONITORING.
[2019-12-27 15:06] LABS: *ANA ANTI-CENTROMERE B AB <0.2 AI (0.0-0.9); *ANA ANTI-DNA(DS) AB, QN 1 IU/mL (0-9); *ANA ANTI-JO-1 <0.2 AI (0.0-0.9); *ANA ANTICHROMATIN ANTIBODY <0.2 AI (0.0-0.9); *ANA RNP ANTIBODIES 0.2 AI (0.0-0.9); *ANA SJOGREN'S ANTI-SS-A <0.2 AI (0.0-0.9); *ANA SJOGREN'S ANTI-SS-B <0.2 AI (0.0-0.9); *ANAANTI-SCLERODERMA-70 AB <0.2 AI (0.0-0.9); *ANASMITH AB <0.2 AI (0.0-0.9)
[2019-12-27] MEDS: ACETAMINOPHEN 650 MG/20.3 ML UDC NG PRN (16:51)
--- NOTE | 2019-12-27 16:58 | NUR ---
RN NOTES T-99.9 F ADMINISTERED TYLENOL 650 ML VIA G-TUBE,ALSO ADMINISTERED SCHEDULED MEDICATION, V/S TAKEN STABLE, ASSIST TURN AND REPOSTION Q 2 HR. ALSO APPLIED COOL APPLICANT. KEEP HOB ELEVATED FOR ASPIRATION PRECAUTION. CONTINUED MONITORING.
--- NOTE | 2019-12-27 18:30 | NUR ---
RN NOTES T-99.6 ORALLY, KEEPING COOLING MEASURE. HOB ELEVATED FOR ASPIRATION PRECAUTION,GT FEEDING INTACT, F/C DRAINING YELLOW OUTPUT, ASSIST TURN AND REPOSITION Q 2 HR. ENDORSED ONCOMING NURSE FOLLOW PLAN OF CARE.
--- NOTE | 2019-12-27 19:50 | NUR ---
INSURANCE RISK ANALYST OPENING NOTE: RECEIVED PATIENT IN BED RESTING. AWAKE AND ALERT. ABLE TO MAKE NEEDS KNOWN BY RESPONDING TO YES/NO QUESTIONS. TEMP 99.6 COOLING MEASURES WERE DONE BY AM RN WILL CONTINUE TO MONITOR. ON MECHANICAL VENTILATION WITH ORDERED SETTINGS AND TOLERATING WELL, NO SOB AND NOT IN RESPIRATORY DISTRESS. ON CARDIAC MONITORING WITH SR. IV ON L HAND #20, SITE CLEAN, NO S/S OF INFILTRATION NOTED. NO COMPLAIN OF PAIN AT THIS TIME. G TUBE IN PLACE AND PATENT, FEEDING OF NEPRO 40MLS/HR TOLERATED WELL. CALL LIGHT IN REACH. BED LOCKED, LOW AND AT SEMI-BRANDT'S POSITION. SIDE RAILS UP X3. WILL CONTINUE TO MONITOR.
[2019-12-27] MEDS: CEFEPIME 1 GM in IV D5W 50 ML IV SCH (19:55)
[2019-12-28] VITALS (7 sets, daily range): BP systolic 130–164; BP diastolic 61–73
[2019-12-28] MEDS: BLOOD SUGAR DIAGNOSTIC 1 EACH STRIP IN SCH ×4 (00:30→17:37)
[2019-12-28] MEDS: INSULIN REGULAR, HUMAN 100 UNIT/ML 3 ML VIAL SQ PRN ×3 (00:33→17:42)
[2019-12-28] MEDS: ALBUTEROL FS 2.5 MG/0.5 ML VIAL.NEB NEB SCH ×3 (01:17→12:54)
[2019-12-28] MEDS: IPRATROPIUM NEB FS 0.5 MG/2.5 ML AMPUL.NEB NEB SCH ×3 (01:17→12:54)
[2019-12-28] MEDS: NEPRO 1,000 ML BOTTLE GT PRN (01:52)
[2019-12-28] MEDS: METOCLOPRAMIDE HCL 10 MG/10 ML UDC GT SCH ×2 (05:20→12:35)
[2019-12-28] MEDS: CLONIDINE HCL 0.1 MG TABLET GT SCH ×2 (05:21→12:45)
[2019-12-28] MEDS: LABETALOL HCL (100MG) 100 MG TABLET GT SCH ×2 (05:22→12:35)
[2019-12-28] MEDS: hydrALAZINE HCL 25 MG TABLET GT SCH ×2 (05:25→12:33)
[2019-12-28 07:02] LABS: BASOPHILS # (AUTO) 0.1 /CMM (0.0-0.2); BASOPHILS % (AUTO) 0.4 % (0.0-2.0); EOSINOPHILS % (AUTO) 13.4 % (0.0-6.0); HEMATOCRIT 27 % (39-51); HEMOGLOBIN 8.7 g/dL (13.5-17.5); LYMPHOCYTES # (AUTO) 1.2 /CMM (0.8-4.8); LYMPHOCYTES % (AUTO) 6.8 % (20.0-44.0); MEAN CORPUSCULAR HGB CONC 32 g/dl (31.0-36.0); MEAN CORPUSCULAR VOLUME 88 fL (80-96); MONOCYTES # (AUTO) 1.5 /CMM (0.1-1.30); MONOCYTES % (AUTO) 8.6 % (2.0-12.0); NEUTROPHILS # (AUTO) 12.7 /CMM (1.8-8.9); NEUTROPHILS % (AUTO) 70.8 % (43.0-81.0); PLATELET COUNT (AUTO) 244 /CMM (150-450); RED BLOOD CELL COUNT(AUTO) 3.06 MIL/uL (4.5-6.0); WHITE BLOOD COUNT (AUTO) 17.9 K/uL (4.3-11.0)
--- NOTE | 2019-12-28 07:15 | NUR ---
RN INITIAL NOTE PATIENT IN BED, AWAKE, NON VERBAL. ON VENT, SATURATING WELL. HAS A CANNON CATH DRAINING WELL. ON GTF WITH NEPRO AT 40 ML/HR. HAS A LEFT HAND #20 ON TKO. BED LOCKED AND IN LOWEST POSITION. WILL CONTINUE TO MONITOR
[2019-12-28 07:27] LABS: ALBUMIN 2.9 g/dL (3.4-5.0); BILIRUBIN,TOTAL 0.3 mg/dL (0.2-1.0); CREATININE 3.5 mg/dL (0.6-1.3); MAGNESIUM 2.3 mg/dL (1.8-2.4); POTASSIUM 4.4 mmol/L (3.5-5.1); TOTAL PROTEIN, SERUM 8.3 g/dL (6.4-8.2)
--- NOTE | 2019-12-28 07:44 | NUR ---
RT Pt received trached on mechanical ventilation with noted settings. Pt is awake and alert. HHN tx given inline with no adverse reactions. Vent is plugged into red outlet. No SOB or respiratory distress noted. Addendum: 12/28/19 at 0814 by JUDY REYES RT Amended: Links added.
[2019-12-28] MEDS: LINAGLIPTIN 5 MG TABLET GT SCH (08:14)
[2019-12-28] MEDS: LORATADINE 10 MG TABLET GT SCH (08:14)
[2019-12-28] MEDS: MINOXIDIL (2.5MG) 2.5 MG TABLET GT SCH ×2 (08:14→16:50)
[2019-12-28] MEDS: FAMOTIDINE (20 MG) 20 MG TABLET GT SCH (08:14)
[2019-12-28] MEDS: FERROUS SULFATE UDC 300 MG/5 ML UDC GT SCH (08:15)
[2019-12-28] MEDS: AMLODIPINE BESYLATE 10 MG TABLET GT SCH (08:15)
[2019-12-28] MEDS: VIT B CMPLX 3/FA/VIT C/BIOTIN 1 TAB TABLET GT SCH (08:15)
[2019-12-28] MEDS: DOXAZOSIN MESYLATE (4 MG) 4 MG TABLET GT SCH (08:15)
[2019-12-28] MEDS: LACTOBACILLUS RHAMNOSUS GG 1 EACH CAP.SPRINK GT SCH ×2 (08:15→16:49)
[2019-12-28] MEDS: CHLORHEXIDINE GLUCONATE 15 ML UDC MM SCH (08:16)
[2019-12-28] MEDS: ACETAMINOPHEN 650 MG/20.3 ML UDC GT SCH (08:16)
[2019-12-28] MEDS: ISOSORBIDE DINITRATE (20MG) 20 MG TABLET GT SCH ×3 (08:16→16:51)
[2019-12-28] MEDS: DOCUSATE SODIUM LIQ 100 MG/10 ML UDC GT SCH (08:16)
[2019-12-28] MEDS: LEVETIRACETAM SOL (5 ML) 100 MG/ML UDC GT SCH (08:16)
[2019-12-28] MEDS: GENTAMICIN OPTH OINT 0.3% 3.5 G TUBE OP SCH ×3 (08:17→16:52)
[2019-12-28] MEDS: MINERAL OIL/PETROL OINT 396 GM JAR TP SCH (08:17)
[2019-12-28] MEDS: NEOMY SULF/BACITRAC ZN/POLY 15 GM TUBE TP SCH (08:17)
[2019-12-28] MEDS: NYSTATIN/TRIAMCIN CREAM 15 GM TUBE TP SCH ×2 (08:17→16:52)
[2019-12-28] MEDS: HYDROGEN PEROXIDE 480 ML BOTTLE TP SCH (08:18)
[2019-12-28] MEDS: Z GUARD REMEDY 4 OZ OINT TP SCH (08:19)
[2019-12-28] MEDS: BASAGLAR SQ SCH (08:34)
[2019-12-28] MEDS: INSULIN GLARGINE SQ SCH (08:34)
[2019-12-28] MEDS ORDERED: IV D5W 1,000 ML IV PRN (09:10)
--- NOTE | 2019-12-28 09:25 | NUR ---
RN NOTE ONE OF THE PATIENT'S MEDICATION, RETACRIT, NON IN PYXIS NOR CASETTE. CALLED PHARMACY, THEY SAID THEY WILL CHECK FROM [facility].
--- NOTE | 2019-12-28 16:12 | NUR ---
RN NOTE RECEIVED A PHONE CALL FROM DR. RIVERA SEVERINO TO DC BACK THE PATIENT TO [facility], ALL ORDERS TO BE CONTINUED. CN MADE AWARE.
--- NOTE | 2019-12-28 17:30 | NUR ---
RN NOTE REPORT GIVEN TO KATIE DEVINE RN.
--- NOTE | 2019-12-28 18:15 | NUR ---
RN NOTE PATIENT TRANSFERRED TO [facility] VIA ACLS PROTOCOL, TOGETHER WITH TWO RTs. PATIENT STABLE, VSS, NO COMPLAINS OF ANY SOB NOR PAIN. WOUND PICTURES TAKEN, FAMILY INFORMED (AUNT). REPORT GIVEN TO AMADO DEVINE. ALL EXIT CARE PAPERWORK GIVEN TO NURSE
[2019-12-28] MEDS ORDERED: IPRA0.2S9 IH ×2 (18:28)
[2019-12-28] MEDS ORDERED: ALLA266C2 TP (18:28)
[2019-12-28] MEDS ORDERED: [UNRECOGNIZED DRUG - CODE] IV (18:28)
[2019-12-28] MEDS ORDERED: FERR300L GT (18:28)
[2019-12-28] MEDS ORDERED: LINA5TAB GT (18:28)
[2019-12-28] MEDS ORDERED: INSU100V3 SQ (18:28)
[2019-12-28] MEDS ORDERED: HYDR1SOL TD (18:28)
[2019-12-28] MEDS ORDERED: INSU100V7 SQ (18:28)
[2019-12-28] MEDS ORDERED: AMLO10TA7 GT (18:28)
[2019-12-28] MEDS ORDERED: NEOM28.37 TP (18:28)
[2019-12-28] MEDS ORDERED: DEXT50DI8 IV (18:28)
[2019-12-28] MEDS ORDERED: NYST15CR2 TP (18:28)
[2019-12-28] MEDS ORDERED: BLOO-668 IN (18:28)
[2019-12-28] MEDS ORDERED: CEFE1VIA3 IV (18:28)
[2019-12-28] MEDS ORDERED: ONDA4VIA52 IV (18:28)
[2019-12-28] MEDS ORDERED: GENT3.5O4 OP (18:28)
[2019-12-28] MEDS ORDERED: MINE50OI TP (18:28)
[2019-12-28] MEDS ORDERED: NUT.237L67 GT (18:31)
[2020-09-22] MEDS ORDERED: TUBERCULIN,PURIF.PROT.DERIV. 5 TU/0.1 ML VIAL ID SCH (09:00)
== END 2019-12-28 18:10 | DRG 469 ==
LOC: ER 20:16 → TELE1 23:45
PROVIDERS: ADMIT Internal Medicine; ATTEND Internal Medicine
PROC: 5A1955Z Respiratory Ventilation, Greater than 96 Consecutive Hours (ICD-10-PCS; principal; 2019-12-22)
PROC: 30233P1 Transfusion of Nonautologous Frozen Red Cells into Peripheral Vein, Percutaneous Approach (ICD-10-PCS; 2019-12-23)
DX: N17.0 Acute kidney failure with tubular necrosis (principal); J96.21 Acute and chronic respiratory failure with hypoxia; Z99.11 Dependence on respirator [ventilator] status; R56.1 Post traumatic seizures; G93.41 Metabolic encephalopathy; E44.0 Moderate protein-calorie malnutrition; Z93.0 Tracheostomy status; R13.10 Dysphagia, unspecified; E87.0 Hyperosmolality and hypernatremia; N18.9 Chronic kidney disease, unspecified; Z93.1 Gastrostomy status; Z87.820 Personal history of traumatic brain injury; D72.829 Elevated white blood cell count, unspecified; D63.1 Anemia in chronic kidney disease; E87.5 Hyperkalemia; E83.52 Hypercalcemia; E11.22 Type 2 diabetes mellitus with diabetic chronic kidney disease; E11.65 Type 2 diabetes mellitus with hyperglycemia; Z68.25 Body mass index [BMI] 25.0-25.9, adult; E88.09 Other disorders of plasma-protein metabolism, not elsewhere classified; R21 Rash and other nonspecific skin eruption; N39.0 Urinary tract infection, site not specified; B96.4 Proteus (mirabilis) (morganii) as the cause of diseases classified elsewhere; H10.9 Unspecified conjunctivitis; L08.9 Local infection of the skin and subcutaneous tissue, unspecified
CPT/HCPCS: 31720; 36415; 71045-TC; 76700-TC; 80048-TC; 80053-TC; 80076-TC; 81000-TC; 82272-TC; 82436-TC; 82570-TC; 82728-TC; 82962-TC; 83540-TC; 83735-TC; 83935-TC; 84100-TC; 84133-TC; 84155-TC; 84300-TC; 85025-TC; 85652-TC; 85730-TC; 86225; 86235; 86706; 86803; 86850-TC; 86921-TC; 87040-TC; 87070-TC; 87081-TC; 87086-TC; 87186-TC; 87340; 94002-TC; 94003-TC; 94640-TC; 94760-TC; 94762-TC; 99082-TC; A6403; A7526; G0378; J0692; J0696; J1815; J1953; J7050; J7060; J7070; J8597; P9016-BL

== ENCOUNTER 2020-01-17 13:52 | Inpatient (IN) | payer OTHER ==
[~2020-01-17] VITALS: Ht 172.7 cm; Wt 68.0 kg
[~2020-01-17 13:52] MED LIST changes: +ALBU2.5V13 IH; +ALLA266C2 TP; +AMLO10TA7 GT; +BLOO-668 IN; +CEFE1VIA3 IV; +DEXT50DI8 IV; +EPOE1000 SQ; +FERR325T23 GT; +FOLI0.8T2 GT; +GENT3.5O4 OP; +HYDR1SOL TD; +INSU100I26 SQ; +INSU100V3 SQ; +INSU100V36 SQ; +INSU100V42; +INSU100V7 SQ; +IPRA0.2S9 IH; +LINA5TAB GT; +LORA10TA7 GT; +MINE50OI TP; +MINO2.5T2 GT; +NEOM28.37 TP; +NYST15CR2 TP; +ONDA4TAB5 GT; +ONDA4VIA52 IV; +[UNRECOGNIZED DRUG - CODE] IV
--- NOTE | 2020-01-17 14:04 | NUR ---
from subacute, sent by PMD due to abnormal lab BUN 115 crea 5.7. PT HAS TRACH AND CANNON CATH IN PLACE, INTACT. URINE IS PALE WITH SEDIMENT. SKIN WARM, DRY, INTACT. NO ACUTE DISTRESS NOTED. DENIES SOB, DIZZINESS, WEAKNESS, N/V. CONTRACTURES NOTED X 4 EXTREMITIES. PT ON MONITOR AND READY FOR EVAL.
[2020-01-17] MEDS ORDERED: SITA100T GT (14:34)
--- NOTE | 2020-01-17 15:09 | NUR ---
URINE SENT TO STAT LAB
--- NOTE | 2020-01-17 15:34 | NUR ---
GOT BED 117-2
--- NOTE | 2020-01-17 15:36 | NUR ---
IV LINE ESTABLISHED. PT LITZY WELL
[2020-01-17 15:45] LABS: BASOPHILS # (AUTO) 0.1 /CMM (0.0-0.2); BASOPHILS % (AUTO) 0.5 % (0.0-2.0); HEMATOCRIT 24 % (39-51); HEMOGLOBIN 7.9 g/dL (13.5-17.5); LYMPHOCYTES # (AUTO) 0.9 /CMM (0.8-4.8); LYMPHOCYTES % (AUTO) 6.9 % (20.0-44.0); MEAN CORPUSCULAR HGB CONC 33 g/dl (31.0-36.0); MEAN CORPUSCULAR VOLUME 89 fL (80-96); MONOCYTES # (AUTO) 1.7 /CMM (0.1-1.30); MONOCYTES % (AUTO) 12.5 % (2.0-12.0); NEUTROPHILS # (AUTO) 9.2 /CMM (1.8-8.9); NEUTROPHILS % (AUTO) 69.1 % (43.0-81.0); PLATELET COUNT (AUTO) 204 /CMM (150-450); RED BLOOD CELL COUNT(AUTO) 2.69 MIL/uL (4.5-6.0); WHITE BLOOD COUNT (AUTO) 13.4 K/uL (4.3-11.0)
--- NOTE | 2020-01-17 16:00 | NUR ---
CANNON CATH REPLACED PER MD ORDER, NEW URINE SENT TO STAT LAB
[2020-01-17 16:07] LABS: BILIRUBIN,DIRECT 0.1 mg/dL (0.0-0.2); BILIRUBIN,TOTAL 0.4 mg/dL (0.2-1.0); CALCIUM, SERUM 11.9 mg/dL (8.5-10.1); CREATININE 5.8 mg/dL (0.6-1.3); POTASSIUM 4.8 mmol/L (3.5-5.1); TOTAL PROTEIN, SERUM 7.6 g/dL (6.4-8.2)
--- NOTE | 2020-01-17 16:25 | NUR ---
call from Shelly horne, report given, will call back regarding authorization/tx
[2020-01-17 16:28] LABS: APPEARANCE,URINE Cloudy (CLEAR); BILIRUBIN,URINE Negative (NEGATIVE); BLOOD, URINE Moderate Ery/uL (NEGATIVE); COLOR,URINE Yellow (YELLOW); KETONES,URINE Negative (NEGATIVE); LEUKOCYTE ESTERASE ,URINE Small (NEGATIVE); NITRITE, URINE Negative (NEGATIVE); PROTEIN,URINE >=300 mg/dl (NEGATIVE); UGLUCOSE 100 MG/DL mg/dL (NEGATIVE); UROBILINOGEN,URINE 0.2 EU/dL (0.2)
[2020-01-17 16:36] LABS: BACTERIA,URINE 1+ /HPF (None Seen); RBC,URINE 21-50 /HPF (0-2)
[2020-01-17 16:37] LABS: YEAST,URINE Moderate /HPF (None Seen)
[2020-01-17] MEDS ORDERED: MEROPENEM 500 MG in IV NS 0.9% 50 ML IV ONE (17:00)
[2020-01-17] MEDS ORDERED: VANCOMYCIN 1 GM in IV D5W 250 ML IV ONE (17:00)
--- NOTE | 2020-01-17 17:27 | NUR ---
CALLED [facility] AGAIN
--- NOTE | 2020-01-17 17:48 | NUR ---
REPORT GIVEN TO AMADO YEUNG FOR 117-2, [facility] ACCEPTING.
--- NOTE | 2020-01-17 18:34 | NUR ---
PT. 34 Y OLD NONVERBAL TRACHED EQUAL CHEST RISE NOTED B/S RALES BILATERALLY./ PLACED ON 28% COOL AEROSOL, AMBU BAG AT THE BEDSIDE. EXTRA TRACH AT THE BEDSIDE. Addendum: 01/17/20 at 1835 by SHAWN CASTILLO RT Amended: Links added.
--- NOTE | 2020-01-17 19:00 | NUR ---
[facility]
--- NOTE | 2020-01-17 19:05 | NUR ---
rn note pt came from ER aox2, vs stable, SR 75 on telemetry, on cool aerosol, 3 l/min, no sob, R hand 20 g, Vancomycin infusing, iv intact, Herrera draining yellow urine, safety measures in pace, call light within reach, bed alarm on, pt already on kci mattress from subacute unit. will endorse to date night sitter.
[2020-01-17] MEDS ORDERED: CEFEPIME 1 GM in IV D5W 50 ML IV SCH (19:30)
[2020-01-17 20:00] VITALS: BP 138/51
--- NOTE | 2020-01-17 20:30 | NUR ---
RN NOTES, RECEIVED PATIENT IN BED AWAKE A/O X3, ABLE TO MOUTH WORDS AND LET NEEDS KNOW, ON T-PIECE WITH TRACT IN PLACED, BREATHING EVEN AND UNLABORED, NO SOB/ACUTE DISTRESS NOTED AT THIS TIME, NSR IN THE TELE MONITOR, WITH HR IN 80S WITH BBB AT THIS TIME, GT IN PLACED PATENT AND INTACT, NO RESIDUAL NOTED, IV IN RIGHT HAND 20G, PATENT AND INTACT, FC IN PLACED PATENT AND INTACT, DRAINING YELLOW COLOR URINE, ALL SAFETY MEASURES IN PLACED, HOB ELEVATED FOR ASPIRATION PRECAUTIONS, BED LOCKED AND LOW POSITION, BED BATH GIVEN AT THIS TIME, PICTURES IN THE CHART, NO MAJOR SKIN ISSUES, UNDER DR GROVER MEDICAL SERVICES, WILL F/U WITH DR GROVER FOR ORDERS, PLEASE SEE PICS, WILL CONTINUE TO MONITOR CLOSELY.
--- NOTE | 2020-01-17 21:10 | NUR ---
RN NOTES, SPOKE WITH DR GROVER FOR ORDERS, AND DR GROVER REPLIED THAT HE'LL PUT THE ORDERS NOW, WILL CONTINUE TO MONITOR CLOSELY.
[2020-01-17] MEDS: FLUCONAZOLE IN NS 100 MG in PREMIX 1 EA IV SCH ×2 (22:06)
[2020-01-17] MEDS: CEFEPIME 1 GM in IV D5W 50 ML IV SCH (22:30)
--- NOTE | 2020-01-17 22:35 | NUR ---
RN NOTES, CALLED MD AGAIN AT THIS TIME, AND SPOKE WITH DR GROVER, TO REMIND HIM THAT PATIENT IS DIABETIC AND WE NEED ORDERS FOR HIM, HE REPLIED "I'LL PUT ORDERS NOW" ALSO INFORMED MD THAT DIETARY IS CLOSED AT NIGHT, SO WILL NOT BE ABLE TO PROVIDE FEEDING FOR TONIGHT SO HE CAN CONSIDER IVF.
[2020-01-17] MEDS ORDERED: ACETAMINOPHEN 325 MG TABLET PO PRN (23:00)
[2020-01-17] MEDS ORDERED: MAGNESIUM HYDROXIDE 30 ML UDC PO PRN (23:00)
[2020-01-17] MEDS ORDERED: ZOLPIDEM TARTRATE 5 MG TABLET PO PRN (23:00)
[2020-01-17] MEDS ORDERED: DEXTROSE 50%-WATER 50 ML DISP.SYRIN IV PRN (23:00)
[2020-01-17] MEDS ORDERED: MAG HYDROX/AL HYDROX/SIMETH 30 ML UDC PO PRN (23:00)
[2020-01-17] MEDS ORDERED: CEFEPIME 1 GM in IV NS 0.9% 50 ML IV SCH (23:00)
--- NOTE | 2020-01-17 23:12 | NUR ---
RN NOTES, NOTED PATIENT DESATURATED, INITIALLY 28% ON COOL AEROSOL, AT THIS TIME, RT ALREADY INCREASED TO 40% AND PATIENT SATURATION LEVEL 82-85%, CALLED DR GROVER AND INFORMED ABOUT PATIENT'S CONDITION, DR GROVER REPLIED WITH ORDERED TO CONTACT PEL LIBRARY AIDE FOR ORDERS.
--- NOTE | 2020-01-17 23:18 | NUR ---
RN NOTES, CALLED [facility] OFFICE TO GET ORDERS FOR PATIENT AND YOLIS CORTES ARTIFICIAL FLOWER MAKER ORDERED TO PUT PATIENT IN VENTILATOR WITH FOLLOWING SETTINGS, AC16, TV 500, PEEP 5, AND TITRATE FIO2, NOTED AND CARRIED OUT.
--- NOTE | 2020-01-17 23:40 | NUR ---
RN NOTES, PATIENT ON MECHANICAL VENTILATOR SUPPORT AT THIS TIME, STATES FEELING BETTER AND NO MORE SOB AT THIS TIME, O2 SAT LEVEL 95% ON FOLLOWING SETTINGS AC 16, TV 500, FIO2 45%, PEEP +5, WILL CONTINUE TO MONITOR CLOSELY.
[2020-01-17] MEDS: IV D5/0.45 NACL 1,000 ML IV PRN (23:41)
[2020-01-17] MEDS: BLOOD SUGAR DIAGNOSTIC 1 EACH STRIP IN SCH (23:48)
[2020-01-17] MEDS: INSULIN REGULAR, HUMAN 100 UNIT/ML 3 ML VIAL SQ PRN (23:49)
[2020-01-18] VITALS (8 sets, daily range): BP systolic 145–184; BP diastolic 39–90
[2020-01-18] MEDS: ONDANSETRON HCL/PF 4 MG/2 ML VIAL IVP PRN ×3 (03:13→19:39)
--- NOTE | 2020-01-18 03:15 | NUR ---
RN NOTES, PATIENT NOTED WITH ONE EPISODE OF EMESIS, DENIES DIZZINESS, OR NAUSEA, ZOFRAN ADMINISTERED ORDERED, WILL CONTINUE TO MONITOR CLOSELY.
[2020-01-18] MEDS: hydrALAZINE HCL 25 MG TABLET GT SCH ×3 (04:24→20:51)
[2020-01-18 05:17] LABS: APPEARANCE,URINE CLOUDY (CLEAR); BILIRUBIN,URINE NEGATIVE (NEGATIVE); BLOOD, URINE MODERATE Ery/uL (NEGATIVE); COLOR,URINE YELLOW (YELLOW); KETONES,URINE NEGATIVE (NEGATIVE); LEUKOCYTE ESTERASE ,URINE MODERATE (NEGATIVE); NITRITE, URINE NEGATIVE (NEGATIVE); PROTEIN,URINE >=300 mg/dl (NEGATIVE); UGLUCOSE 100 MG/DL mg/dL (NEGATIVE); UROBILINOGEN,URINE 0.2 EU/dL (0.2)
[2020-01-18 05:21] LABS: BACTERIA,URINE Moderate /HPF (None Seen); SQUAMOUS EPITHELIAL CELL,UR Rare /HPF (None Seen); WBC,URINE TOO NUMEROUS TO COUN /HPF (0-3); YEAST,URINE Moderate /HPF (None Seen)
--- NOTE | 2020-01-18 05:30 | NUR ---
RN NOTES, AFTER RECHECKED BLOOD PRESSURE, BP NOTED 148/68, HR 71, NO MORE EPISODES OF EMESIS NOTED, WILL CONTINUE TO MONITOR CLOSELY.
[2020-01-18 05:40] LABS: EOSINOPHIL,URINE None Seen
[2020-01-18] MEDS: BLOOD SUGAR DIAGNOSTIC 1 EACH STRIP IN SCH ×4 (05:49→23:36)
[2020-01-18] MEDS: INSULIN REGULAR, HUMAN 100 UNIT/ML 3 ML VIAL SQ PRN ×2 (05:50→23:36)
[2020-01-18 06:02] LABS: URINE TOTAL PROTEIN 890.1 mg/dL (0-11.9)
--- NOTE | 2020-01-18 07:20 | NUR ---
BOILERMAKER [employer] CLOSING NOTES PT ON STABLE CONDITION STILL ON VENT SETTING PER MD, TOLERATED WELL O2 SAT >92%, NO PAIN NOTED, NO EMESIS, ALL NEEDS ATTENDED, ON TELE MONITOR READING SR 80'S, STILL FOR OCCULT BLOOD X3 AM NURSE AWARE, SAFETY MEASURE OBSERVED CALL LIGHT WITHIN REACH BED ON LOWEST POSSIBLE POSITION, WILL ENDORSE TO AM SHIFT NURSE
[2020-01-18 07:32] LABS: BASOPHILS # (AUTO) 0.1 /CMM (0.0-0.2); BASOPHILS % (AUTO) 0.4 % (0.0-2.0); EOSINOPHILS % (AUTO) 2.5 % (0.0-6.0); HEMATOCRIT 26 % (39-51); HEMOGLOBIN 8.7 g/dL (13.5-17.5); LYMPHOCYTES # (AUTO) 0.5 /CMM (0.8-4.8); LYMPHOCYTES % (AUTO) 3.7 % (20.0-44.0); MEAN CORPUSCULAR HGB CONC 34 g/dl (31.0-36.0); MEAN CORPUSCULAR VOLUME 87 fL (80-96); MONOCYTES # (AUTO) 1.4 /CMM (0.1-1.30); MONOCYTES % (AUTO) 9.4 % (2.0-12.0); NEUTROPHILS # (AUTO) 12.3 /CMM (1.8-8.9); PLATELET COUNT (AUTO) 226 /CMM (150-450); RED BLOOD CELL COUNT(AUTO) 2.99 MIL/uL (4.5-6.0); WHITE BLOOD COUNT (AUTO) 14.7 K/uL (4.3-11.0)
--- NOTE | 2020-01-18 07:40 | NUR ---
RN NOTES PATIENT RECEIVED IN BED AOX3 ON VENTILATOR WITH SETTING ORDERED TOLERATING WELL O2 @ 100%. BREATHING UNLABORED NO SOB NOTED. RIGHT HAND 20G, IV INTACT. ALL SAFETY MEASURES IN PLACE. BED IN LOCKED AND LOWEST POSITION. CALL LIGHT WITHIN REACH. WILL CONT TO MONITOR.
[2020-01-18 08:02] LABS: ALBUMIN 3.1 g/dL (3.4-5.0); BILIRUBIN,TOTAL 0.5 mg/dL (0.2-1.0); CALCIUM, SERUM 12.1 mg/dL (8.5-10.1); CREATININE 5.6 mg/dL (0.6-1.3); MAGNESIUM 3.4 mg/dL (1.8-2.4); PHOSPHORUS 5.2 mg/dL (2.5-4.9); POTASSIUM 4.8 mmol/L (3.5-5.1); TOTAL PROTEIN, SERUM 8.2 g/dL (6.4-8.2)
[2020-01-18] MEDS ORDERED: FEE PK DOSING 1 MIN EA MC ONE (11:26)
--- NOTE | 2020-01-18 19:20 | NUR ---
RN OPENING NOTES: RECEIVED PT IN BED, AWAKE A&OX3. ON VENT TOLERATING SETTINGS WELL. ON TELE MONITOR SHOWING SR. NO ACUTE DISTRESS NOTED. IV ON R HAND #20 RUNNING D5 1/2 NS AT 50ML/HR. HAS CANNON CATH PATENT AND DRAINING WELL. BED IN LOWEST AND LOCKED POSITION, CALL LIGHT WITHIN REACH. WILL CONTINUE TO MONITOR.
--- NOTE | 2020-01-18 20:26 | NUR ---
RN CLOSING NOTES PATIENT IN STABLE CONDITION DURING MY SHIFT. ALL PATIENT NEEDS MET. PT ON MECHANICAL VENT WITH SETTINGS ORDERED, TOLERATING WELL, SATURATION AT 100%. NO ACUTE DISTRESS IS NOTED. PATIENT HAS 2 EPISODES OF EMESIS, MD NOTIFIED, NO NEW ORDERS. ZOFRAN PRN WAS ADMINISTERED. ASKED MD TO GO OVER MED RECON AND PUT IN SCHEDULED MEDS, NO NEW ORDERS YET. PATIENT VITAL SIGNS STABLE WITH BP RUNNING A LITTLE HIGH IN 140S. CONTROLLED BY HYDRALIZINE GT. FEEDING IS BEING HELD TODAY DUE TO PT BEING NAUSEOUS, NEW ORDERS WILL BE PUT IN TOMORROW FOR FEEDING. SAFETY MAINTAINED, CALL LIGHT WITHIN REACH, ENDORSED TO TIMBER SKIDDER NURSE TO CONTINUE CARE.
[2020-01-18] MEDS: FLUCONAZOLE IN NS 100 MG in PREMIX 1 EA IV SCH ×2 (20:35)
[2020-01-18] MEDS: CEFEPIME 1 GM in IV D5W 50 ML IV SCH (21:38)
[2020-01-18] MEDS: IV D5/0.45 NACL 1,000 ML IV PRN (22:02)
[2020-01-19] VITALS: BP 145/75
[2020-01-19] MEDS: ONDANSETRON HCL/PF 4 MG/2 ML VIAL IVP PRN (01:45)
--- NOTE | 2020-01-19 03:38 | NUR ---
RT NOTE PATIENT RECEIVED IN STABLE CONDITION: ALERT AND ORIENTED. PATIENT TOLERATING CURRENT ORDERED VENT SETTINGS, NO SIGNS OF RESPIRATORY DISTRESS NOTED. ALARMS ARE SET AND AUDIBLE. TRACH IS PATENT AND SECURE. MECHANICAL VENT IS PLUGGED INTO RED OUTLET. EMERGENCY EQUIPMENT AT PATIENT BEDSIDE. WILL CONTINUE TO MONITOR PATIENT
[2020-01-19 04:00] VITALS: BP 159/50
[2020-01-19] MEDS: hydrALAZINE HCL 25 MG TABLET GT SCH ×3 (04:14→21:01)
[2020-01-19] MEDS: BLOOD SUGAR DIAGNOSTIC 1 EACH STRIP IN SCH ×4 (05:27→23:56)
[2020-01-19] MEDS: INSULIN REGULAR, HUMAN 100 UNIT/ML 3 ML VIAL SQ PRN ×2 (05:27→17:11)
[2020-01-19] MEDS ORDERED: VANCOMYCIN 1 GM in IV D5W 250 ML IV SCH (06:00)
--- NOTE | 2020-01-19 06:33 | NUR ---
RN CLOSING NOTES: PT IN BED RESTING A&0X3. ON TRACH AND VENT TOLERATING SETTINGS WELL. NO RESPIRATORY DISTRESS NOTED DURING SHIFT. NO ACUTE CHANGES NOTED DURING SHIFT. RIGHT HAND IV #20 RUNNING D5 1/2 NS AT 50ML/HR. IV SITE PATENT, FLUSHING, CLEAN/DRY. HAD 2 EPISODES OF EMESIS DURING SHIFT. ZOFRAN PRN IV GIVEN ORDERED. CANNON CATH IN PLACE, PATENT AND DRAINING. ALL NEEDS MET. MEDICATIONS GIVEN ORDERED. BED IN LOWEST AND LOCKED POSITION, CALL LIGHT WITHIN REACH. WILL ENDORSE TO AM NURSE FOR SALLY.
--- NOTE | 2020-01-19 06:50 | NUR ---
RN NOTES: DR. KEARNEY ON FLOOR. MADE AWARE OF MED RECON FOR PT. ALSO, AWAITING VANCO TROUGH. HELD 0600 VANCO UNTIL RESULTS ARE IN. ENDORSED TO AM RN.
[2020-01-19] MEDS ORDERED: BISACODYL SUPP (10 MG) 10 MG/SUPP.RECT SUPP.RECT RC PRN (07:30)
--- NOTE | 2020-01-19 07:30 | NUR ---
RN OPENING NOTES RECEIVED PATIENT FROM TRANSACTION COORDINATOR NURSE. PATIENT IN STABLE CONDITION. A/O X3, NON VERBAL WITH A TRACH IN PLACE. PATIENT IS ON MECHANICAL VENTILATOR WITH SETTINGS ORDERED. TOLERATING WELL, SATURATION AT 100%. PER PM NURSE, PT REQUESTING TO BE SUCTIONED FREQUENTLY WITH NOTHING COMING OUT. HAD AN EPISODE OF EMESIS X2 DURING THE NIGHT, RELIEVED WITH ZOFRAN PRN. G TUBE IN PLACE, INTACT AND FLUSHED WELL. NO FEEDING AT THE MOMENT DUE TO PATIENT BEING NAUSEOUS. MD IS AWARE. IV ON RIGHT HAND INTACT, PATENT FLUSHED WELL WITH NO S/S OF INFECTION. SAFETY MAINTAINED, CALL LIGHT WITHIN REACH, WILL CONTINUE TO MONITOR CLOSELY.
[2020-01-19 07:58] LABS: CALCIUM, SERUM 11.6 mg/dL (8.5-10.1); CREATININE 5.3 mg/dL (0.6-1.3); POTASSIUM 4.2 mmol/L (3.5-5.1)
[2020-01-19 08:00] VITALS: BP_SYST 185; BP_SYST 203; BP_DIAS 84; BP_DIAS 96
[2020-01-19] MEDS: FERROUS SULFATE UDC 300 MG/5 ML UDC PO SCH (08:10)
[2020-01-19] MEDS: FAMOTIDINE (20 MG) 20 MG TABLET GT SCH (08:10)
[2020-01-19] MEDS: CHLORHEXIDINE GLUCONATE 15 ML UDC MM SCH (08:10)
[2020-01-19] MEDS: ISOSORBIDE DINITRATE (20MG) 20 MG TABLET GT SCH ×3 (08:11→17:04)
[2020-01-19] MEDS: AMLODIPINE BESYLATE 10 MG TABLET GT SCH (08:11)
[2020-01-19] MEDS: LORATADINE 10 MG TABLET GT SCH (08:11)
[2020-01-19] MEDS: MINOXIDIL (2.5MG) 2.5 MG TABLET GT SCH ×2 (08:12→17:04)
[2020-01-19 09:02] LABS: THYROID STIMULATING HORMONE 0.681 uIU/mL (0.358-3.74)
[2020-01-19] MEDS: Z GUARD REMEDY 2 OZ OINT TP SCH ×2 (09:09→21:03)
[2020-01-19] MEDS: ALBUTEROL FS 2.5 MG/0.5 ML VIAL.NEB IH SCH ×4 (09:19→19:49)
[2020-01-19] MEDS: IPRATROPIUM NEB FS 0.5 MG/2.5 ML AMPUL.NEB IH SCH ×4 (09:19→19:49)
[2020-01-19 09:48] LABS: ABG BASE EXCESS 0.1 mmol/L; ABG OXYGEN SATURATION 98.5 % (92.0-98.5); ABG PH 7.416 (7.350-7.450); ABG PO2 156.2 mmHg (75.0-100.0); AaDO2 120.3 mmHg; COHb 0.5 % (0.5-1.5); MetHb 0.3 % (0.0-1.5); O2Hb 97.7 % (94.0-97.0); SITE, ABG Left Radial; VENT MODE, BG AC 16 500 45% +5
[2020-01-19 10:22] LABS: *SPE A/G RATIO 0.7 (0.7-1.7); *SPE ALBUMIN 3.2 g/dL (2.9-4.4); *SPE ALPHA-1-GLOBULIN 0.4 g/dL (0.0-0.4); *SPE ALPHA-2-GLOBULIN 1.4 g/dL (0.4-1.0); *SPE BETA GLOBULIN 1.1 g/dL (0.7-1.3); *SPE GLOBULIN, TOTAL 4.5 g/dL (2.2-3.9); *SPE M-SPIKE Not Observed g/dL (Not Observed); *SPEGAMMA GLOBULIN 1.6 g/dL (0.4-1.8)
[2020-01-19 11:06] LABS: PTH, INTACT 7 pg/mL (15-65)
[2020-01-19 12:00] VITALS: BP 166/77
--- NOTE | 2020-01-19 12:57 | NUR ---
RN NOTE DID NOT ADMINISTER INSULIN BECAUSE PATIENT HAS NO FEEDING RUNNING AT THE MOMENT. BLOOD SUGAR WILL DROP SIGNIFICANTLY IF ADMINISTERED.
--- NOTE | 2020-01-19 13:04 | NUR ---
RN NOTES CALLED PHARMACY REGARDING VANCO THAT WAS SUPPOSED TO BE HANGED AT 0600. JUST RECEIVED VANCO THROUGH LEVEL, OK TO HANG RIGHT NOW PER PHARMACY.
[2020-01-19] MEDS: LABETALOL HCL (100MG) 100 MG TABLET GT SCH ×2 (13:10→21:02)
[2020-01-19] MEDS: METOCLOPRAMIDE HCL 10 MG TABLET GT SCH ×2 (13:22→21:03)
[2020-01-19 16:00] VITALS: BP 139/78
[2020-01-19] MEDS: IV D5/0.45 NACL 1,000 ML IV PRN (18:24)
--- NOTE | 2020-01-19 19:19 | NUR ---
RN CLOSING NOTES PATIENT IN STABLE CONDITION, NO ACUTE CHANGES TO PT CONDITION DURING MY SHIFT. 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 PATIENT IS PLACED ON CONTACT ISOLATION, CARE PLAN FOR ISOLATION ADDED TO THE PATIENTS PLAN. CHARGE NURSE SPOKE TO MD, ORDERED BACTROBAN FOR THE PATIENT. PATIENT HAD NO BOWEL MOVEMENT DURING THE SHIFT, NO SAMPLE WAS ABLE TO BE COLLECTED FOR OB. PT HAD NO EPISODES OF NAUSEA AND VOMITING DURING MY SHIFT, MIGHT CONTINUE TUBE FEEDING TOMORROW IF PATIENT KEEPS DOING WELL. SAFETY MAINTAINED, CALL LIGHT WITHIN REACH, ENDORSED TO TEAROOM HOST/HOSTESS NURSE TO CONTINUE CARE.
[2020-01-19 20:00] VITALS: BP 147/81
--- NOTE | 2020-01-19 20:00 | NUR ---
RN OPENING NOTES: RECEIVED PT IN BED, AWAKE A&OX3. ON VENT TOLERATING SETTINGS WELL. ON TELE MONITOR SHOWING SR-78 ,NO ACUTE DISTRESS NOTED,BREATHING EVEN AND UNLABORED . IV PERIPHERAL ON R HAND #20 RUNNING D5 1/2 NS AT 50ML/HR. HAS CANNON CATH PATENT AND DRAINING WELL. DUE MEDS GIVEN ORDERED ,ALL NEEDS ATTENDED TOO .HOB ELEVATED AT ALL TIMES , TURNED AND REPOSITION Q2HRS AND PRN. BED IN LOWEST AND LOCKED POSITION, CALL LIGHT WITHIN REACH. WILL CONTINUE TO MONITOR.PTS ON NPO STATUS , ON CONTACT ISOLATION MRSA NARES , PRECAUTIONARY MEASURES OBSERVED AT ALL TIMES , V/S STABLE AFEBRILE.
[2020-01-19] MEDS: FLUCONAZOLE IN NS 100 MG in PREMIX 1 EA IV SCH ×2 (21:04)
[2020-01-19] MEDS: MUPIROCIN OINT 2% 22 GM TUBE SCH (21:04)
[2020-01-19] MEDS: CEFEPIME 1 GM in IV D5W 50 ML IV SCH (21:04)
[2020-01-20] VITALS (7 sets, daily range): BP systolic 128–162; BP diastolic 53–80
[2020-01-20] MEDS: INSULIN REGULAR, HUMAN 100 UNIT/ML 3 ML VIAL SQ PRN ×4 (00:30→18:16)
[2020-01-20] MEDS: ALBUTEROL FS 2.5 MG/0.5 ML VIAL.NEB IH SCH ×4 (00:39→19:38)
[2020-01-20] MEDS: IPRATROPIUM NEB FS 0.5 MG/2.5 ML AMPUL.NEB IH SCH ×4 (00:39→19:38)
[2020-01-20] MEDS: LABETALOL HCL (100MG) 100 MG TABLET GT SCH ×3 (04:46→21:24)
[2020-01-20] MEDS: METOCLOPRAMIDE HCL 10 MG TABLET GT SCH ×3 (04:47→21:24)
[2020-01-20] MEDS: hydrALAZINE HCL 25 MG TABLET GT SCH ×3 (05:34→21:25)
--- NOTE | 2020-01-20 06:00 | NUR ---
MOLDER MEAT NOTES BLOOD SUGAR AT 6AM IS 125 MG/DL NO COVERAGE OF INSULIN GIVEN PER SLIDING SCALE .WILL CONT TO TO MONITOR PT.
[2020-01-20] MEDS: BLOOD SUGAR DIAGNOSTIC 1 EACH STRIP IN SCH ×3 (06:10→18:12)
--- NOTE | 2020-01-20 06:16 | NUR ---
PT IN BED RESTING A&0X3. ON TRACH AND VENT TOLERATING SETTINGS WELL. NO RESPIRATORY DISTRESS NOTED DURING SHIFT. NO ACUTE CHANGES NOTED DURING SHIFT. RIGHT HAND IV #20 RUNNING D5 1/2 NS AT 50ML/HR. IV SITE PATENT, FLUSHING, CLEAN/DRY. CANNON CATH IN PLACE, PATENT AND DRAINING. ALL NEEDS MET. MEDICATIONS GIVEN ORDERED. BED IN LOWEST AND LOCKED POSITION, CALL LIGHT WITHIN REACH.PTS REMAIN NPO STATUS, WILL ENDORSE TO AM NURSE FOR SALLY.
[2020-01-20 06:47] LABS: BASOPHILS # (AUTO) 0.1 /CMM (0.0-0.2); BASOPHILS % (AUTO) 0.5 % (0.0-2.0); EOSINOPHILS % (AUTO) 9.6 % (0.0-6.0); HEMATOCRIT 23 % (39-51); HEMOGLOBIN 7.8 g/dL (13.5-17.5); LYMPHOCYTES # (AUTO) 1.2 /CMM (0.8-4.8); LYMPHOCYTES % (AUTO) 8.6 % (20.0-44.0); MEAN CORPUSCULAR HGB CONC 34 g/dl (31.0-36.0); MEAN CORPUSCULAR VOLUME 88 fL (80-96); MONOCYTES # (AUTO) 1.8 /CMM (0.1-1.30); MONOCYTES % (AUTO) 12.1 % (2.0-12.0); NEUTROPHILS % (AUTO) 69.2 % (43.0-81.0); PLATELET COUNT (AUTO) 211 /CMM (150-450); RED BLOOD CELL COUNT(AUTO) 2.64 MIL/uL (4.5-6.0); WHITE BLOOD COUNT (AUTO) 14.5 K/uL (4.3-11.0)
[2020-01-20 07:07] LABS: ALBUMIN 2.7 g/dL (3.4-5.0); BILIRUBIN,TOTAL 0.5 mg/dL (0.2-1.0); CALCIUM, SERUM 10.8 mg/dL (8.5-10.1); CREATININE 4.7 mg/dL (0.6-1.3); MAGNESIUM 3.1 mg/dL (1.8-2.4); PHOSPHORUS 3.9 mg/dL (2.5-4.9); POTASSIUM 3.9 mmol/L (3.5-5.1); TOTAL PROTEIN, SERUM 7.3 g/dL (6.4-8.2)
--- NOTE | 2020-01-20 07:45 | NUR ---
RN OPENING NOTES RECEIVED PATIENT RESTING IN BED COMFORTABLY AT THIS TIME. HE IS AOX3, NON-VERBAL, AND BEDBOUND HE IS ON MECHANICAL VENT VIA PORTEX 7 TRACH, TOLERATING SETTINGS WELL WITH SMALL AMOUNT OF SECRETIONS. GTUBE IS INTACT BUT CLAMPED, NO DIET ORDER AT THIS TIME, WILL F/U. PT IS ON CONTACT ISO FOR MRSA OF THE NARES. CANNON CATH IS PATENT AND INTACT, DRAINING CLEAR AND YELLOW URINE BY GRAVITY. SKIN IS INTACT. RHONCHI HEARD ALL ALL LUNG GTZ UPON AUSCULTATION. SAFETY MEASURES HAVE BEEN IMPLEMENTED, CALL LIGHT IS WITHIN REACH, BED IS IN LOWEST AND LOCKED POSITION, SIDE RAILS UP X2, WILL CONTINUE TO MONITOR FOR ANY CHANGES.
[2020-01-20] MEDS: FERROUS SULFATE UDC 300 MG/5 ML UDC PO SCH (08:42)
[2020-01-20] MEDS: CHLORHEXIDINE GLUCONATE 15 ML UDC MM SCH (08:42)
[2020-01-20] MEDS: ISOSORBIDE DINITRATE (20MG) 20 MG TABLET GT SCH ×3 (08:42→16:35)
[2020-01-20] MEDS: AMLODIPINE BESYLATE 10 MG TABLET GT SCH (08:43)
[2020-01-20] MEDS: MINOXIDIL (2.5MG) 2.5 MG TABLET GT SCH ×2 (08:43→16:35)
[2020-01-20] MEDS: FAMOTIDINE (20 MG) 20 MG TABLET GT SCH (08:43)
[2020-01-20] MEDS: MUPIROCIN OINT 2% 22 GM TUBE SCH ×2 (08:45→21:29)
[2020-01-20] MEDS: Z GUARD REMEDY 2 OZ OINT TP SCH ×2 (08:45→21:30)
[2020-01-20] MEDS: LORATADINE 10 MG TABLET GT SCH (08:48)
[2020-01-20] MEDS: NEPRO 1,000 ML BOTTLE GT PRN (12:56)
[2020-01-20] MEDS: IV D5/0.45 NACL 1,000 ML IV PRN (16:34)
--- NOTE | 2020-01-20 19:25 | NUR ---
RN CLOSING NOTES PATIENT IS RESTING COMFORTABLY IN BED, DENIES PAIN OR SOB AT THIS TIME. PT IS ON [facility] VETN, TOLERATING SETTINGS WELL. CONTACT ISO HAS BEEN IMPLEMENTED AND ENFORCE AT ALL TIMES. NO ACUTE CHANGES OCCURRED THROUGHOUT THE SHIFT, VITAL SIGNS ARE STABLE, PT NEEDS HAVE BEEN MET. SAFETY MEASURES HAVE BEEN IMPLEMENTED, CALL LIGHT IS WITHIN REACH, BED IS IN LOWEST AND LOCKED POSITION, SIDE RAILS UP X2, WILL ENDORSE TO NIGHTSHIFT RN FOR SALLY.
--- NOTE | 2020-01-20 19:30 | NUR ---
RN OPENING NOTES RECEIVED PATIENT RESTING IN BED, EASILY AROUSABLE. A/OX3. NO SIGNS OF DISTRESS OR DISCOMFORT. BREATHING EVEN AND UNLABORED. [facility] WITH SETTING ORDERED. ON TELE MONITOR WITH SR 84 NOTED. IV ACCESS IN R HAND PATENT AND INTACT, NO SIGNS OF REDNESS OR INFILTRATION. HAS GTUBE INTACT WITH FEEDING RUNNING, PATIENT TOLERATING WELL. HAS F/C INTACT DRAINING CLEAR YELLOW FLUID. BED IN LOW LOCKED POSITION WITH SIDE RAILS X2. CALL LIGHT WITHIN REACH. WILL CONTINUE TO MONITOR.
--- NOTE | 2020-01-20 19:39 | NUR ---
PT. RCVD. TRACH PORTEX 7 ON VENT WITH NOTED SETTINGS. PT IS ALERT AND ORIENTED. PATIENT TOLERATING CURRENT ORDERED VENT SETTINGS, NO SIGNS OF RESPIRATORY DISTRESS NOTED. Q6 BREATHING TX GIVEN. NO ADVERSE REACTION NOTED. SX DONE PRN. ALARMS ARE SET AND AUDIBLE. TRACH IS PATENT AND SECURE. MECHANICAL VENT IS PLUGGED INTO RED OUTLET. WILL CONTINUE TO MONITOR PT T/O THE SHIFT.
[2020-01-20] MEDS: CEFEPIME 1 GM in IV D5W 50 ML IV SCH (20:58)
[2020-01-20] MEDS: FLUCONAZOLE IN NS 100 MG in PREMIX 1 EA IV SCH ×2 (21:43)
[2020-01-21] VITALS: BP 152/65
[2020-01-21] MEDS: BLOOD SUGAR DIAGNOSTIC 1 EACH STRIP IN SCH ×5 (00:30→23:52)
[2020-01-21] MEDS: INSULIN REGULAR, HUMAN 100 UNIT/ML 3 ML VIAL SQ PRN ×4 (00:31→18:43)
[2020-01-21] MEDS: IPRATROPIUM NEB FS 0.5 MG/2.5 ML AMPUL.NEB IH SCH ×4 (01:19→19:58)
[2020-01-21] MEDS: ALBUTEROL FS 2.5 MG/0.5 ML VIAL.NEB IH SCH ×4 (01:19→19:58)
[2020-01-21] MEDS: VANCOMYCIN 1 GM in IV D5W 250 ML IV SCH (01:25)
[2020-01-21 04:30] VITALS: BP 140/73
[2020-01-21] MEDS: METOCLOPRAMIDE HCL 10 MG TABLET GT SCH ×3 (05:37→21:33)
[2020-01-21] MEDS: LABETALOL HCL (100MG) 100 MG TABLET GT SCH ×3 (05:37→21:32)
[2020-01-21] MEDS: hydrALAZINE HCL 25 MG TABLET GT SCH ×3 (05:38→21:32)
--- NOTE | 2020-01-21 06:33 | NUR ---
RN CLOSING NOTES PATIENT RESTING IN BED, EASILY AROUSABLE. A/OX3. NO SIGNS OF DISTRESS OR DISCOMFORT. BREATHING EVEN AND UNLABORED. [facility] ORDERED. ON TELE MONITOR WITH SR 85 NOTED. IV ACCESS IN R HAND WITH D5 1/2 NS INFUSING, PATENT AND INTACT, NO SIGNS OF REDNESS OR INFILTRATION. HAS GTUBE INTACT WITH FEEDING RUNNING, PATIENT TOLERATING WELL WITH NO RESIDUAL NOTED THROUGHOUT SHIFT. HAS F/C INTACT DRAINING CLOUDY YELLOW FLUID. ALL NEEDS MET. NO SIGNIFICANT CHANGES THROUGH THE NIGHT. PATIENT KEPT CLEAN DRY AND COMFORTABLE. REPOSITIONED Q2H. BED IN LOW LOCKED POSITION WITH SIDE RAILS X2. CALL LIGHT WITHIN REACH. WILL ENDORSE TO AM SHIFT FOR SALLY.
[2020-01-21 07:30] LABS: CALCIUM, SERUM 10.7 mg/dL (8.5-10.1); CREATININE 4.2 mg/dL (0.6-1.3); POTASSIUM 3.7 mmol/L (3.5-5.1)
--- NOTE | 2020-01-21 07:49 | NUR ---
rolled seat trimmer Notes - Opening Notes Received patient from production grader resting comfortably. Patient is vented. Nonverbal, tracks with eyes. Patient is Sinus Rhythm in the 80s. No apparent s/s of distress. G-Tube intact running Nephro at 40mL per hour. IV Right hand 20g running D5 1/2 NS @50mL/HR. Plan of care endorsed from production grader is to continue abx and anti fungal tx. Possible CXR today, BMP, and CT w/o contrast. Bed in lowest position, call light within reach. All measures taken to ensure client safety.
[2020-01-21 08:00] VITALS: BP 133/69
[2020-01-21] MEDS: FAMOTIDINE (20 MG) 20 MG TABLET GT SCH (09:19)
[2020-01-21] MEDS: MINOXIDIL (2.5MG) 2.5 MG TABLET GT SCH ×2 (09:20→17:56)
[2020-01-21] MEDS: ISOSORBIDE DINITRATE (20MG) 20 MG TABLET GT SCH ×3 (09:24→17:56)
[2020-01-21] MEDS: LORATADINE 10 MG TABLET GT SCH (09:25)
[2020-01-21] MEDS: FERROUS SULFATE UDC 300 MG/5 ML UDC PO SCH (09:25)
[2020-01-21] MEDS: Z GUARD REMEDY 2 OZ OINT TP SCH ×2 (09:25→21:00)
[2020-01-21] MEDS: CHLORHEXIDINE GLUCONATE 15 ML UDC MM SCH (09:25)
[2020-01-21] MEDS: AMLODIPINE BESYLATE 10 MG TABLET GT SCH (09:25)
[2020-01-21] MEDS: MUPIROCIN OINT 2% 22 GM TUBE SCH ×2 (09:27→21:46)
[2020-01-21 09:30] LABS: BASOPHILS # (AUTO) 0.1 /CMM (0.0-0.2); BASOPHILS % (AUTO) 0.7 % (0.0-2.0); EOSINOPHILS % (AUTO) 17.3 % (0.0-6.0); HEMATOCRIT 23 % (39-51); HEMOGLOBIN 7.7 g/dL (13.5-17.5); LYMPHOCYTES # (AUTO) 1.1 /CMM (0.8-4.8); LYMPHOCYTES % (AUTO) 8.2 % (20.0-44.0); MEAN CORPUSCULAR HGB CONC 33 g/dl (31.0-36.0); MEAN CORPUSCULAR VOLUME 88 fL (80-96); MONOCYTES # (AUTO) 1.7 /CMM (0.1-1.30); MONOCYTES % (AUTO) 12.6 % (2.0-12.0); NEUTROPHILS # (AUTO) 8.3 /CMM (1.8-8.9); NEUTROPHILS % (AUTO) 61.2 % (43.0-81.0); PLATELET COUNT (AUTO) 239 /CMM (150-450); RED BLOOD CELL COUNT(AUTO) 2.63 MIL/uL (4.5-6.0); WHITE BLOOD COUNT (AUTO) 13.6 K/uL (4.3-11.0)
[2020-01-21] MEDS: NEPRO 1,000 ML BOTTLE GT PRN (10:36)
[2020-01-21 12:00] VITALS: BP 130/72
[2020-01-21] MEDS ORDERED: diphenhydrAMINE HCL ELIX 25 MG/10 ML UDC GT ONE (15:00)
[2020-01-21] MEDS ORDERED: MINERAL OIL/PETROL OINT 396 GM JAR TP PRN (15:00)
[2020-01-21] MEDS ORDERED: PETROLATUM,WHITE PACKET 5 GM PACKET TP PRN (15:00)
[2020-01-21 16:00] VITALS: BP 168/81
--- NOTE | 2020-01-21 19:17 | NUR ---
certified surgical assistant - Closing Notes Patient is vented. Nonverbal, tracks with eyes. Patient is Sinus Rhythm in the 80s. No apparent s/s of distress. G-Tube intact running Nephro at 40mL per hour. IV Right hand 20g running D5 1/2 NS @50mL/HR. Patient has puritis on his arms. Dr. Shrestha ordered benadryl 25 mg and aquaphor healing ointment. Patient removes vent on his own, patient instructed to not touch and to avoid itching. Bed in lowest position, call light within reach, will endorse care to oncoming shift. All measures taken to ensure client safety.
--- NOTE | 2020-01-21 19:25 | NUR ---
TELE/RN notes Patient received in bed, awake, open eyes, A/O x 1. Denies any pain. In no acute distress, breathing even and unlabored, no SOB. Trach to vent, sat 98%. IV site intact, patent. D5NS @ 50cc/hr. G-tube in place, patent, Nephro @ 40cc/Hr. No residual. HOB elevated. Herrera intact, patent, draining with yellow color urine. NSR on the monitor. Safety maintained, bed at the lowest locked position. Call light within reach. Will continue to monitor as per plan of care.
[2020-01-21] MEDS: FLUCONAZOLE IN NS 100 MG in PREMIX 1 EA IV SCH ×2 (21:33)
[2020-01-21] MEDS: CEFEPIME 1 GM in IV D5W 50 ML IV SCH (21:33)
[2020-01-21] MEDS: Z GUARD REMEDY 2 OZ OINT TP PRN ×3 (21:46→21:55)
[2020-01-21] MEDS: IV D5/0.45 NACL 1,000 ML IV PRN (21:55)
[2020-01-21 22:00] VITALS: BP 149/77
[2020-01-22] VITALS (7 sets, daily range): BP systolic 133–147; BP diastolic 66–82
[2020-01-22] MEDS: IPRATROPIUM NEB FS 0.5 MG/2.5 ML AMPUL.NEB IH SCH ×4 (01:30→19:37)
[2020-01-22] MEDS: ALBUTEROL FS 2.5 MG/0.5 ML VIAL.NEB IH SCH ×4 (01:30→19:37)
[2020-01-22] MEDS: LABETALOL HCL (100MG) 100 MG TABLET GT SCH ×3 (04:54→22:03)
[2020-01-22] MEDS: hydrALAZINE HCL 25 MG TABLET GT SCH ×3 (04:54→21:09)
[2020-01-22] MEDS: METOCLOPRAMIDE HCL 10 MG TABLET GT SCH ×3 (04:54→21:06)
[2020-01-22] MEDS: INSULIN REGULAR, HUMAN 100 UNIT/ML 3 ML VIAL SQ PRN ×3 (05:08→23:53)
[2020-01-22] MEDS: BLOOD SUGAR DIAGNOSTIC 1 EACH STRIP IN SCH ×4 (05:08→23:49)
--- NOTE | 2020-01-22 07:16 | NUR ---
TELE/RN notes Patient remained in bed, awake, open eyes, A/O x 1. Denies any pain. In no acute distress, breathing even and unlabored, no SOB. Trach to vent, sat 100. IV site intact, patent. D5NS @ 50cc/hr. G-tube in place, patent, Nephro @ 40cc/Hr. No residual. HOB elevated. Herrera intact, patent, draining with yellow color urine. NSR on the monitor. No significant change in condition noted. Due meds given as ordered,. tolerated well. needs attendant. Call light within reach. Safety maintained, bed at the lowest locked position. Call light within reach. Endorse to AM shift Nurse for SALLY
--- NOTE | 2020-01-22 07:40 | NUR ---
TELE/RN notes Received Patient remained in bed, awake, open eyes, A/O x 1. No signs of acute distress noted at this time, breathing even and unlabored, no SOB. Trach to vent, sat 100. No IV site noted, Will try to re-insert. G-tube in place, patent, Nephro @ 40cc/Hr. No residual. HOB elevated. Herrera intact, patent, draining with yellow color urine. On tele monitoring with current reading of NSR. Safety measures in place, Call light within reach. bed at the lowest locked position with side rails up x2. Will continue to monitor.
[2020-01-22 08:18] LABS: BASOPHILS # (AUTO) 0.1 /CMM (0.0-0.2); BASOPHILS % (AUTO) 0.9 % (0.0-2.0); EOSINOPHILS % (AUTO) 20.5 % (0.0-6.0); HEMATOCRIT 23 % (39-51); HEMOGLOBIN 7.5 g/dL (13.5-17.5); LYMPHOCYTES # (AUTO) 0.8 /CMM (0.8-4.8); LYMPHOCYTES % (AUTO) 6.6 % (20.0-44.0); MEAN CORPUSCULAR HGB CONC 33 g/dl (31.0-36.0); MEAN CORPUSCULAR VOLUME 88 fL (80-96); MONOCYTES # (AUTO) 1.2 /CMM (0.1-1.30); MONOCYTES % (AUTO) 9.4 % (2.0-12.0); NEUTROPHILS % (AUTO) 62.6 % (43.0-81.0); PLATELET COUNT (AUTO) 250 /CMM (150-450); RED BLOOD CELL COUNT(AUTO) 2.59 MIL/uL (4.5-6.0); WHITE BLOOD COUNT (AUTO) 12.8 K/uL (4.3-11.0)
[2020-01-22 08:31] LABS: CALCIUM, SERUM 10.9 mg/dL (8.5-10.1); CREATININE 4.1 mg/dL (0.6-1.3); POTASSIUM 3.7 mmol/L (3.5-5.1)
[2020-01-22] MEDS: FAMOTIDINE (20 MG) 20 MG TABLET GT SCH (09:02)
[2020-01-22] MEDS: FERROUS SULFATE UDC 300 MG/5 ML UDC PO SCH (09:02)
[2020-01-22] MEDS: LORATADINE 10 MG TABLET GT SCH (09:02)
[2020-01-22] MEDS: ISOSORBIDE DINITRATE (20MG) 20 MG TABLET GT SCH ×3 (09:02→16:35)
[2020-01-22] MEDS: AMLODIPINE BESYLATE 10 MG TABLET GT SCH (09:02)
[2020-01-22] MEDS: CHLORHEXIDINE GLUCONATE 15 ML UDC MM SCH (09:03)
[2020-01-22] MEDS: MINOXIDIL (2.5MG) 2.5 MG TABLET GT SCH ×2 (09:03→16:36)
[2020-01-22 09:07] LABS: ALBUMIN 2.9 g/dL (3.4-5.0); BILIRUBIN,TOTAL 0.3 mg/dL (0.2-1.0); CALCIUM, SERUM 10.8 mg/dL (8.5-10.1); CREATININE 4.1 mg/dL (0.6-1.3); MAGNESIUM 2.8 mg/dL (1.8-2.4); PHOSPHORUS 4.1 mg/dL (2.5-4.9); POTASSIUM 3.7 mmol/L (3.5-5.1); TOTAL PROTEIN, SERUM 7.6 g/dL (6.4-8.2)
[2020-01-22] MEDS: Z GUARD REMEDY 2 OZ OINT TP SCH ×2 (09:08→21:19)
[2020-01-22] MEDS: MUPIROCIN OINT 2% 22 GM TUBE SCH ×2 (09:08→21:19)
[2020-01-22 09:58] LABS: BAND % (MANUAL) 2 % (0.0-5.0); EOSINOPHILS % (MANUAL) 19 % (0-4); LYMPHOCYTES % (MANUAL) 5 % (16-48); MONOCYTES % (MANUAL) 3 % (0-11.0); NEUTROPHILS % (MANUAL) 71 (42-76)
[2020-01-22] MEDS: VANCOMYCIN 1 GM in IV D5W 250 ML IV SCH (12:24)
[2020-01-22] MEDS: NEPRO 1,000 ML BOTTLE GT PRN (14:05)
[2020-01-22] MEDS ORDERED: diphenhydrAMINE HCL ELIX 25 MG/10 ML UDC GT PRN (16:00)
[2020-01-22] MEDS: TRIAMCINOLONE ACETONIDE 0.1% CR 15 GM TUBE TP SCH (16:36)
--- NOTE | 2020-01-22 18:43 | NUR ---
TELE/RN notes Patient remained in bed, awake, open eyes, A/O x 1. No signs of acute distress noted at this time, breathing even and unlabored, no SOB. Trach to vent, sat 100. No IV site noted, IV line intact and patent. G-tube in place, patent, Nephro @ 40cc/Hr. No residual. HOB elevated. Herrera intact, patent, draining with yellow color urine. On tele monitoring with current reading of NSR. Safety measures in place, Call light within reach. bed at the lowest locked position with side rails up x2. Will endorse to night worker nurse for tato.
--- NOTE | 2020-01-22 19:40 | NUR ---
RN OPENING NOTES: RECEIVED PT IN BED, RESTING A&OX1, NONVERBAL. ON TRACH AND VENT TOLERATING SETTINGS WELL, NO RESPIRATORY DISTRESS NOTED. ON TELE MONITOR SHOWING SR. HAS IV SITE ON L FA #22 W/ D5 1/2 NS RUNNING AT 50CC/HR. FLUSHED AND PATENT, C/D/I. HAS G TUBE IN PLACE. PATENT W/ FEEDING OF NEPHRO GOING AT 40CC/HR. NO RESIDUAL AND HOB ELEVATED. HAS CANNON IN PLACE, PATENT AND DRAINING YELLOW URINE. DENIES ANY PAIN AT THIS TIME. SAFETY MEASURES IN PLACE. BED IN LOWEST AND LOCKED POSITION, SIDE RAILS UP X3, CALL LIGHT W/IN REACH. WILL CONTINUE TO MONITOR.
[2020-01-22] MEDS: CEFEPIME 1 GM in IV D5W 50 ML IV SCH (21:06)
[2020-01-22] MEDS: FLUCONAZOLE (100 MG) 100 MG TABLET GT SCH (21:11)
[2020-01-23] VITALS: BP 138/64
[2020-01-23] MEDS: IPRATROPIUM NEB FS 0.5 MG/2.5 ML AMPUL.NEB IH SCH ×4 (01:33→19:45)
[2020-01-23] MEDS: ALBUTEROL FS 2.5 MG/0.5 ML VIAL.NEB IH SCH ×4 (01:33→19:45)
[2020-01-23 04:00] VITALS: BP 136/57
[2020-01-23] MEDS: METOCLOPRAMIDE HCL 10 MG TABLET GT SCH ×3 (05:14→21:01)
[2020-01-23] MEDS: hydrALAZINE HCL 25 MG TABLET GT SCH ×3 (05:15→21:02)
[2020-01-23] MEDS: LABETALOL HCL (100MG) 100 MG TABLET GT SCH ×3 (05:56→21:02)
[2020-01-23] MEDS: BLOOD SUGAR DIAGNOSTIC 1 EACH STRIP IN SCH ×4 (05:57→23:38)
[2020-01-23] MEDS: INSULIN REGULAR, HUMAN 100 UNIT/ML 3 ML VIAL SQ PRN ×3 (06:07→23:43)
[2020-01-23] MEDS: IV D5/0.45 NACL 1,000 ML IV PRN (06:42)
[2020-01-23 06:52] LABS: BASOPHILS # (AUTO) 0.1 /CMM (0.0-0.2); BASOPHILS % (AUTO) 0.9 % (0.0-2.0); EOSINOPHILS % (AUTO) 20.1 % (0.0-6.0); HEMATOCRIT 23 % (39-51); HEMOGLOBIN 7.7 g/dL (13.5-17.5); LYMPHOCYTES # (AUTO) 0.9 /CMM (0.8-4.8); LYMPHOCYTES % (AUTO) 7.4 % (20.0-44.0); MEAN CORPUSCULAR HGB CONC 33 g/dl (31.0-36.0); MEAN CORPUSCULAR VOLUME 88 fL (80-96); MONOCYTES # (AUTO) 1.1 /CMM (0.1-1.30); MONOCYTES % (AUTO) 8.6 % (2.0-12.0); PLATELET COUNT (AUTO) 245 /CMM (150-450); RED BLOOD CELL COUNT(AUTO) 2.63 MIL/uL (4.5-6.0); WHITE BLOOD COUNT (AUTO) 12.6 K/uL (4.3-11.0)
--- NOTE | 2020-01-23 07:02 | NUR ---
RN CLOSING NOTES: PT RESTING IN BED A&OX1, NONVERBAL. ON TRACH AND VENT TOLERATING SETTINGS WELL. NO RESPIRATORY DISTRESS NOTED. NO ACUTE CHANGES NOTED DURING SHIFT. ON TELE MONITOR SHOWING SR. HAS L FA #22 PATENT, FLUSHED W/ D5 1/2NS RUNNING AT 50CC/HR. HAS GT FEEDING OF NPEHRO RUNNING AT 40CC/HR TOLERATING WELL. NO RESIDUAL NOTED THROUGHOUT SHIFT. ALL MEDICATIONS ADMINISTERED ORDERED. SAFETY MEASURES IN PLACE. BED IN LOWEST AND LOCKED POSITION, CALL LIGHT W/IN REACH. WILL ENDORSE TO AM NURSE FOR SALLY.
[2020-01-23 07:08] LABS: CALCIUM, SERUM 11.1 mg/dL (8.5-10.1); CREATININE 3.6 mg/dL (0.6-1.3); POTASSIUM 3.7 mmol/L (3.5-5.1)
[2020-01-23 08:00] VITALS: BP 136/69
[2020-01-23 08:41] LABS: LYMPHOCYTES % (MANUAL) 5 % (16-48); NEUTROPHILS % (MANUAL) 73 (42-76)
[2020-01-23 08:42] LABS: EOSINOPHILS % (MANUAL) 19 % (0-4); MONOCYTES % (MANUAL) 3 % (0-11.0)
[2020-01-23] MEDS: FAMOTIDINE (20 MG) 20 MG TABLET GT SCH (10:20)
[2020-01-23] MEDS: LORATADINE 10 MG TABLET GT SCH (10:20)
[2020-01-23] MEDS: AMLODIPINE BESYLATE 10 MG TABLET GT SCH (10:21)
[2020-01-23] MEDS: CHLORHEXIDINE GLUCONATE 15 ML UDC MM SCH (10:21)
[2020-01-23] MEDS: MINOXIDIL (2.5MG) 2.5 MG TABLET GT SCH ×2 (10:21→17:39)
[2020-01-23] MEDS: FERROUS SULFATE UDC 300 MG/5 ML UDC PO SCH (10:22)
[2020-01-23] MEDS: TRIAMCINOLONE ACETONIDE 0.1% CR 15 GM TUBE TP SCH ×2 (10:22→17:40)
[2020-01-23] MEDS: MUPIROCIN OINT 2% 22 GM TUBE SCH ×2 (10:23→21:11)
[2020-01-23] MEDS: ISOSORBIDE DINITRATE (20MG) 20 MG TABLET GT SCH ×3 (10:26→17:39)
[2020-01-23 12:00] VITALS: BP 141/51
[2020-01-23] MEDS: Z GUARD REMEDY 2 OZ OINT TP SCH ×2 (13:05→21:11)
[2020-01-23 16:00] VITALS: BP 134/55
[2020-01-23] MEDS ORDERED: PAMIDRONATE 60 MG in IV NS 0.9% 500 ML IV ONE (16:30)
[2020-01-23] MEDS: NEPRO 1,000 ML BOTTLE GT PRN (18:03)
--- NOTE | 2020-01-23 19:20 | NUR ---
RN OPENING NOTES: Received pt in bed, resting A&Ox1, nonverbal. On isolation for MRSA of nares. On trach and vent tolerating settings well. No SOB or respiratory distress noted. Has IV site on left FA #22 with D5 1/2 NS running at 50cc/hr. IV site flushed and patent, dressing c/d/i. Has alberts catheter, patent and draining yellow urine. Has GT site, flushed, no residual. Feeding of Nephro running at 40cc/hr. Tolerating well. Safety measures in place. Bed in lowest and locked position, side rails up x3, call light w/in reach. Will continue to monitor.
[2020-01-23 20:00] VITALS: BP 138/56
[2020-01-23] MEDS: CEFEPIME 1 GM in IV D5W 50 ML IV SCH (21:02)
[2020-01-23] MEDS: FLUCONAZOLE (100 MG) 100 MG TABLET GT SCH (21:02)
[2020-01-24] VITALS: BP 135/47
[2020-01-24] MEDS: VANCOMYCIN 1 GM in IV D5W 250 ML IV SCH (01:00)
--- NOTE | 2020-01-24 01:07 | NUR ---
RN NOTE: Vancomycin held at this time. Vanco trough of 26.
[2020-01-24] MEDS: ALBUTEROL FS 2.5 MG/0.5 ML VIAL.NEB IH SCH ×4 (01:52→19:14)
[2020-01-24] MEDS: IPRATROPIUM NEB FS 0.5 MG/2.5 ML AMPUL.NEB IH SCH ×4 (01:52→19:14)
[2020-01-24 04:00] VITALS: BP 160/77
[2020-01-24] MEDS: METOCLOPRAMIDE HCL 10 MG TABLET GT SCH ×3 (04:41→21:17)
[2020-01-24] MEDS: LABETALOL HCL (100MG) 100 MG TABLET GT SCH ×3 (04:42→21:16)
[2020-01-24] MEDS: hydrALAZINE HCL 25 MG TABLET GT SCH ×3 (04:43→21:16)
[2020-01-24] MEDS: BLOOD SUGAR DIAGNOSTIC 1 EACH STRIP IN SCH ×3 (05:10→17:53)
--- NOTE | 2020-01-24 05:11 | NUR ---
RN NOTE: BS 121 mg/dL. No insulin given per sliding scale.
[2020-01-24 06:25] LABS: BASOPHILS # (AUTO) 0.1 /CMM (0.0-0.2); BASOPHILS % (AUTO) 0.6 % (0.0-2.0); HEMATOCRIT 23 % (39-51); HEMOGLOBIN 7.7 g/dL (13.5-17.5); LYMPHOCYTES # (AUTO) 0.8 /CMM (0.8-4.8); LYMPHOCYTES % (AUTO) 6.8 % (20.0-44.0); MEAN CORPUSCULAR HGB CONC 33 g/dl (31.0-36.0); MEAN CORPUSCULAR VOLUME 89 fL (80-96); MONOCYTES % (AUTO) 8.2 % (2.0-12.0); NEUTROPHILS # (AUTO) 8.1 /CMM (1.8-8.9); NEUTROPHILS % (AUTO) 68.4 % (43.0-81.0); PLATELET COUNT (AUTO) 242 /CMM (150-450); RED BLOOD CELL COUNT(AUTO) 2.61 MIL/uL (4.5-6.0); WHITE BLOOD COUNT (AUTO) 11.8 K/uL (4.3-11.0)
[2020-01-24 06:46] LABS: CALCIUM, SERUM 11.2 mg/dL (8.5-10.1); CREATININE 3.1 mg/dL (0.6-1.3); MAGNESIUM 2.8 mg/dL (1.8-2.4); PHOSPHORUS 3.9 mg/dL (2.5-4.9); POTASSIUM 3.5 mmol/L (3.5-5.1)
--- NOTE | 2020-01-24 06:55 | NUR ---
RN CLOSING NOTES: Pt resting in bed A&0x1, nonverbal. On trach and vent, tolerating settings well. No respiratory distress noted. No acute changes noted during shift. On tele monitor showing SR. Has left FA #22 w/ D5 1/2NS running at 50cc/hr. on GT feeding of Nephro running at 40cc/hr. No residual noted and tolerating well. All meds given as ordered. 0100 Vanco held due to trought being too high at 26. No pain noted at this time. Safety measures in place. Bed in lowest and locked position, side rails up x3 and call light w/in reach. Will endorse to AM nurse for SALLY.
[2020-01-24 08:00] VITALS: BP_SYST 106; BP_SYST 155; BP_DIAS 45; BP_DIAS 73
--- NOTE | 2020-01-24 08:00 | NUR ---
ADVERTISING ACCOUNT REPRESENTATIVE NOTES RECEIVED PATIENT IN BED ALERT ORIENTED, BS CHECKED -112MG/DL NO COVERAGE NEEDED AT THIS TIME. NEW HL 20G RIGHT FA IN PLACED. NO SOB NOTED. PATIENT HAS IV INTACT FLUSHED WELL. ON TELE MONITORING HR-87 SR. TAKING TO CTA. PLAN OF CARE DISCUSSED WITH THE PATIENT . BED IN LOCKED AND LOWEST POSITION. CALL LIGHT WITHIN REACH. WILL CONT TO MONITOR. Addendum: 01/24/20 at 1012 by TREVOR JONAS RN WRONG PATIENT WRONG CHARTING
[2020-01-24] MEDS ORDERED: FUROSEMIDE 20 MG/2 ML VIAL IV ONE (09:00)
[2020-01-24] MEDS: LORATADINE 10 MG TABLET GT SCH (09:20)
[2020-01-24] MEDS: CHLORHEXIDINE GLUCONATE 15 ML UDC MM SCH (09:20)
[2020-01-24] MEDS: FERROUS SULFATE UDC 300 MG/5 ML UDC PO SCH (09:20)
[2020-01-24] MEDS: FLUCONAZOLE (100 MG) 100 MG TABLET GT SCH (09:21)
[2020-01-24] MEDS: FAMOTIDINE (20 MG) 20 MG TABLET GT SCH (09:21)
[2020-01-24] MEDS: ISOSORBIDE DINITRATE (20MG) 20 MG TABLET GT SCH ×3 (09:21→17:45)
[2020-01-24] MEDS: AMLODIPINE BESYLATE 10 MG TABLET GT SCH (09:21)
[2020-01-24] MEDS: TRIAMCINOLONE ACETONIDE 0.1% CR 15 GM TUBE TP SCH ×2 (09:22→17:49)
[2020-01-24] MEDS: MINOXIDIL (2.5MG) 2.5 MG TABLET GT SCH ×2 (09:22→17:45)
[2020-01-24] MEDS: Z GUARD REMEDY 2 OZ OINT TP SCH ×2 (09:22→21:17)
[2020-01-24] MEDS: MUPIROCIN OINT 2% 22 GM TUBE SCH ×2 (09:23→21:17)
[2020-01-24 12:00] VITALS: BP_SYST 140; BP_DIAS 50; BP_DIAS 55
[2020-01-24] MEDS: INSULIN REGULAR, HUMAN 100 UNIT/ML 3 ML VIAL SQ PRN (12:50)
[2020-01-24 16:00] VITALS: BP_SYST 140; BP_SYST 148; BP_DIAS 55; BP_DIAS 62
[2020-01-24] MEDS: NEPRO 1,000 ML BOTTLE GT PRN (17:46)
[2020-01-24] MEDS ORDERED: RXVAN IV (18:51)
[2020-01-24] MEDS ORDERED: FLUC100T8 GT (18:51)
[2020-01-24] MEDS ORDERED: VANC750P13 IV (18:51)
[2020-01-24] MEDS ORDERED: CEFE1FRO IV (18:51)
--- NOTE | 2020-01-24 18:55 | NUR ---
PATIENT DISCHARGE PER IMTIAZ KAM NP. NURSING SUP TERRIE MADE AWARE ,WILL TRANSFER TO ROOM 276-2,WILL ENDORSE TO NIGHT RN TO CONTIUNE DISCHARGE PROCESS.
--- NOTE | 2020-01-24 19:06 | NUR ---
RT END OF THE SHIFT REPORT, PT. 34 Y OLD MALE REC. IN AM TRACH'D PORTEX # 7 ON VENT WITH NOTED SETTINGS, ALARMS ARE SET AND FUNCTIONAL, HHN INLINE TX'S GIVEN Q6 NO ADVERSE REACTION NOTED. B/S BILATERALLY RHONCHI SUX'D FOR SMALL AMT TANNISH/YELLOW THICK SECRETIONS, HME CHANGED, PRINCIPAL ANDROID DEVELOPER DONE. NO DISTRESS NOTED T/O DAY NO CHANGES, AMBU BAG AT THE BEDSIDE. VENT PLUGGED INTO RED OUTLET. REPORT WILL PASS TO PM SHIFT. Addendum: 01/24/20 at 1907 by SHAWN CASTILLO RT Amended: Links added.
--- NOTE | 2020-01-24 19:14 | NUR ---
RT NOTES PT RECEIVED TRACHED ON [facility] VENT ON CHARTED SETTINGS. NO SIGNS OF DISTRESS. AIRWAY PATENT AND SECURED. CIRCUS ARTIST DONE. PT SUCTIONED. BREATHING TX GIVEN. NO ADVERSE REACTIONS NOTED. ALARMS SET AND AUDIBLE. AMBUBAG AND SPARE TRACH AT BEDSIDE. VENT CONNECTED TO RED OUTLET. WILL CONT TO MONITOR. Addendum: 01/25/20 at 0555 by GINETTE MAHONEY RT Amended: Links added.
--- NOTE | 2020-01-24 19:15 | NUR ---
TELE/RN OPENING RECEIVED PATIENT ON VENTILATOR WITH NO SIGN ANY DISTRESS. PATIENT IS ALERT AND IS ABLE TO NOD HEAD FOR UNDERSTANDING. PATIENT IS ON A PORTEX #7, WITH AC OF 16, TV 500, FI02 40%, AND A PEEP OF 5. CURRENTLY PATIENT IN NOT SHOWING ANY SIGNS OF DIFFICULTY BREATHING OR SOB. PATIENT ON THE MONITOR SHOWING NSR WITH A HR IN THE 80'S. HAS IV ACCESS ON LFA #22. PATENT AND FLUSHING. CANNON CATHETER WITH NO SIGN OF LEAKAGE. ALL SAFETY PRECAUTIONS APPLIED. VENTILATOR PLUGGED INTO RED OUTLET. WILL CONTINUE TO MONITOR PATIENT THROUGHOUT SHIFT.
[2020-01-24 20:00] VITALS: BP 145/57
[2020-01-24] MEDS: CEFEPIME 1 GM in IV D5W 50 ML IV SCH (21:17)
[2020-01-25] VITALS: BP 130/53
[2020-01-25] MEDS ORDERED: VANCOMYCIN 0.75 GM in IV D5W 250 ML IV SCH ×2
[2020-01-25] MEDS: BLOOD SUGAR DIAGNOSTIC 1 EACH STRIP IN SCH ×2 (00:42→05:24)
[2020-01-25] MEDS: INSULIN REGULAR, HUMAN 100 UNIT/ML 3 ML VIAL SQ PRN ×2 (00:58→05:52)
[2020-01-25] MEDS: ALBUTEROL FS 2.5 MG/0.5 ML VIAL.NEB IH SCH ×2 (01:33→07:48)
[2020-01-25] MEDS: IPRATROPIUM NEB FS 0.5 MG/2.5 ML AMPUL.NEB IH SCH ×2 (01:33→07:48)
[2020-01-25 04:00] VITALS: BP_SYST 150; BP_DIAS 63; BP_DIAS 66
[2020-01-25] MEDS: hydrALAZINE HCL 25 MG TABLET GT SCH (05:23)
[2020-01-25] MEDS: LABETALOL HCL (100MG) 100 MG TABLET GT SCH (05:23)
[2020-01-25] MEDS: METOCLOPRAMIDE HCL 10 MG TABLET GT SCH (05:24)
[2020-01-25 06:46] LABS: CREATININE 3.2 mg/dL (0.6-1.3); POTASSIUM 3.4 mmol/L (3.5-5.1)
[2020-01-25 07:51] LABS: BASOPHILS # (AUTO) 0.1 /CMM (0.0-0.2); BASOPHILS % (AUTO) 0.7 % (0.0-2.0); EOSINOPHILS % (AUTO) 12.5 % (0.0-6.0); HEMATOCRIT 23 % (39-51); HEMOGLOBIN 7.7 g/dL (13.5-17.5); LYMPHOCYTES # (AUTO) 0.5 /CMM (0.8-4.8); LYMPHOCYTES % (AUTO) 4.6 % (20.0-44.0); MEAN CORPUSCULAR HGB CONC 33 g/dl (31.0-36.0); MEAN CORPUSCULAR VOLUME 90 fL (80-96); MONOCYTES # (AUTO) 1.1 /CMM (0.1-1.30); MONOCYTES % (AUTO) 9.5 % (2.0-12.0); NEUTROPHILS # (AUTO) 8.5 /CMM (1.8-8.9); NEUTROPHILS % (AUTO) 72.7 % (43.0-81.0); PLATELET COUNT (AUTO) 233 /CMM (150-450); RED BLOOD CELL COUNT(AUTO) 2.61 MIL/uL (4.5-6.0); WHITE BLOOD COUNT (AUTO) 11.8 K/uL (4.3-11.0)
--- NOTE | 2020-01-25 07:55 | NUR ---
TELE/RN CLOSING NOTE PATIENT IN BED WITH NO SIGN OF ANY DISTRESS. PATIENT TOLERATING VENT SETTINGS. WITH NO SIGN OF ANY SOB. ALL SAFETY PRECAUTIONS APPLIED. VENT PLUGGED INTO RED OUTLET. ENDORSED PATIENT TO MORNING SHIFT NURSE FOR SALLY.
[2020-01-25 08:00] VITALS: BP 135/75
[2020-01-25] MEDS: CHLORHEXIDINE GLUCONATE 15 ML UDC MM SCH (08:47)
[2020-01-25] MEDS: FERROUS SULFATE UDC 300 MG/5 ML UDC PO SCH (08:47)
[2020-01-25] MEDS: FAMOTIDINE (20 MG) 20 MG TABLET GT SCH (08:48)
[2020-01-25] MEDS: ISOSORBIDE DINITRATE (20MG) 20 MG TABLET GT SCH (08:48)
[2020-01-25] MEDS: AMLODIPINE BESYLATE 10 MG TABLET GT SCH (08:48)
[2020-01-25] MEDS: LORATADINE 10 MG TABLET GT SCH (08:48)
[2020-01-25 08:50] VITALS: BP 135/75
[2020-01-25] MEDS: MINOXIDIL (2.5MG) 2.5 MG TABLET GT SCH (08:50)
[2020-01-25] MEDS: MUPIROCIN OINT 2% 22 GM TUBE SCH (08:52)
[2020-01-25] MEDS: Z GUARD REMEDY 2 OZ OINT TP SCH (08:53)
[2020-01-25] MEDS: TRIAMCINOLONE ACETONIDE 0.1% CR 15 GM TUBE TP SCH (08:54)
--- NOTE | 2020-01-25 09:39 | NUR ---
NOVELTY CANDY MAKER - TRANSFER ICU PATIENT TRANSFERRED TO ICU - REPORT GIVEN TO DAV Addendum: 01/25/20 at 0940 by MURIEL SHANKAR RN WRONG PATIENT
== END 2020-01-25 09:56 | disposition short-term general hospital (02) | DRG 720 ==
LOC: ER 13:53 → TELE-TD 17:27 → TELE1 17:41
PROVIDERS: ADMIT Internal Medicine; ATTEND Nurse Practitioner Acute Care
PROC: 5A1955Z Respiratory Ventilation, Greater than 96 Consecutive Hours (ICD-10-PCS; principal; 2020-01-17)
DX: A41.9 Sepsis, unspecified organism (principal); N17.0 Acute kidney failure with tubular necrosis; J96.21 Acute and chronic respiratory failure with hypoxia; Z99.11 Dependence on respirator [ventilator] status; J15.6 Pneumonia due to other Gram-negative bacteria; G92 Toxic encephalopathy; E44.0 Moderate protein-calorie malnutrition; Z93.0 Tracheostomy status; D72.1 Eosinophilia; E11.22 Type 2 diabetes mellitus with diabetic chronic kidney disease; Z87.820 Personal history of traumatic brain injury; N18.9 Chronic kidney disease, unspecified; B96.4 Proteus (mirabilis) (morganii) as the cause of diseases classified elsewhere; G40.909 Epilepsy, unspecified, not intractable, without status epilepticus; D63.1 Anemia in chronic kidney disease; B37.49 Other urogenital candidiasis; I12.9 Hypertensive chronic kidney disease with stage 1 through stage 4 chronic kidney disease, or unspecified chronic kidney disease; R13.10 Dysphagia, unspecified; L20.9 Atopic dermatitis, unspecified; L85.3 Xerosis cutis; Z98.890 Other specified postprocedural states; Z79.84 Long term (current) use of oral hypoglycemic drugs; Z79.51 Long term (current) use of inhaled steroids; Z79.4 Long term (current) use of insulin; Z79.899 Other long term (current) drug therapy; E87.0 Hyperosmolality and hypernatremia; E87.5 Hyperkalemia; E83.52 Hypercalcemia; Z90.49 Acquired absence of other specified parts of digestive tract; Y95 Nosocomial condition; Z93.1 Gastrostomy status
CPT/HCPCS: 31720; 36415; 36600; 71045-TC; 71250-TC; 76770-TC; 80048-TC; 80053-TC; 80061-TC; 80076-TC; 80202-TC; 81000-TC; 82550-TC; 82570-TC; 82728-TC; 82803-TC; 82962-TC; 83540-TC; 83605-TC; 83735-TC; 83970; 84100-TC; 84155; 84155-TC; 84165; 84300-TC; 84443-TC; 84484-TC; 85025-TC; 85730-TC; 87040-TC; 87081-TC; 87086-TC; 94002-TC; 94003-TC; 94640-TC; 94664-TC; 94760-TC; 94762-TC; 99082-TC; A4216; A4623; A6403; A7526; G0378; J0692; J1450; J1815; J1940; J2185; J2405; J2430; J3370; J3490; J7040; J7060; J8597; Q0163

== ENCOUNTER 2020-01-24 01:21 | Inpatient (IN) | payer OTHER ==
[~2020-01-24] VITALS: Ht 165.1 cm; Wt 74.4 kg
[~2020-01-24 01:21] MED LIST changes: -AMLO10TA4 GT; -CEFE1VIA3 IV; -EPOE1VIA12 SQ; -FERR325T23 GT; -GENT3.5O4 OP; -INSU100I26 SQ; -INSU100V36 SQ; -INSU100V42; -IPRA3AMP23 IH; -LINA5TAB GT; -Linezolid GT; -MAGN400O6 GT; -MERO500V3 IV; -MINO2.5T GT; -NEOM28.37 TP; -NUTR1PAC14 GT; -NYST15CR2 TP; -ONDA4TAB5 GT; -SENN-168 GT; +SITA100T GT; -SITA50TA GT; -SPIR25TA GT; -[UNRECOGNIZED DRUG - CODE] IV
[2020-01-24] MEDS ORDERED: RXVAN IV (18:51)
[2020-01-24] MEDS ORDERED: FLUC100T8 GT (18:51)
[2020-01-24] MEDS ORDERED: CEFE1FRO IV (18:51)
[2020-01-24] MEDS ORDERED: VANC750P13 IV (18:51)
[2020-01-25] MEDS ORDERED: POTASSIUM CHLORIDE 20 MEQ POWDER PACKET GT ONE (15:00)
[2020-01-25] MEDS ORDERED: ONDANSETRON HCL/PF 4 MG/2 ML VIAL IVP PRN (15:00)
[2020-01-25] MEDS ORDERED: ACETAMINOPHEN 650 MG/20 ML UDC- SA PATIENTS-FEVER ONLY GT PRN (15:00)
[2020-01-25] MEDS ORDERED: BISACODYL SUPP (10 MG) 10 MG/SUPP.RECT SUPP.RECT RC PRN (15:00)
[2020-01-25] MEDS ORDERED: IPRATROPIUM NEB FS 0.5 MG/2.5 ML AMPUL.NEB NEB PRN (15:00)
[2020-01-25] MEDS ORDERED: NEPRO 1,000 ML BOTTLE GT PRN (15:00)
[2020-01-25] MEDS ORDERED: ALBUTEROL FS 2.5 MG/3 ML VIAL.NEB NEB PRN (15:30)
[2020-01-25] MEDS ORDERED: DEXTROSE 50%-WATER 50 ML DISP.SYRIN IV PRN (15:30)
[2020-01-25] MEDS ORDERED: NA PHOS,M-B/NA PHOS,DI-BA 1 EA ENEMA RC PRN (15:30)
[2020-01-25] MEDS: MINOXIDIL (2.5MG) 2.5 MG TABLET GT SCH (17:46)
[2020-01-25] MEDS: ISOSORBIDE DINITRATE (20MG) 20 MG TABLET GT SCH (17:46)
[2020-01-25] MEDS: BLOOD SUGAR DIAGNOSTIC 1 EACH STRIP IN SCH (17:46)
[2020-01-25] MEDS: LACTOBACILLUS RHAMNOSUS GG 1 EACH CAP.SPRINK GT SCH (17:46)
[2020-01-25] MEDS: ALBUTEROL FS 2.5 MG/3 ML VIAL.NEB NEB SCH (20:09)
[2020-01-25] MEDS: IPRATROPIUM NEB FS 0.5 MG/2.5 ML AMPUL.NEB NEB SCH (20:09)
[2020-01-25 20:15] VITALS: BP 140/55
[2020-01-25] MEDS ORDERED: HYDROGEN PEROXIDE 480 ML BOTTLE TP SCH (21:00)
[2020-01-25] MEDS ORDERED: BASAGLAR SQ SCH (21:00)
[2020-01-25] MEDS ORDERED: INSULIN GLARGINE SQ SCH (21:00)
[2020-01-25] MEDS: CEFEPIME 1 GM in IV D5W 50 ML IV SCH (21:11)
[2020-01-25] MEDS: DOCUSATE SODIUM LIQ 100 MG/10 ML UDC GT SCH (21:36)
[2020-01-25] MEDS: CLONIDINE HCL 0.1 MG TABLET GT SCH (21:36)
[2020-01-25] MEDS: hydrALAZINE HCL 25 MG TABLET GT SCH (21:36)
[2020-01-25] MEDS: DOXAZOSIN MESYLATE (4 MG) 4 MG TABLET GT SCH (21:36)
[2020-01-25] MEDS: LABETALOL HCL 300 MG TABLET GT SCH (21:41)
[2020-01-25] MEDS: METOCLOPRAMIDE HCL 10 MG/10 ML UDC GT SCH (21:41)
[2020-01-25] MEDS: LEVETIRACETAM SOL (5 ML) 100 MG/ML UDC GT SCH (21:41)
[2020-01-25] MEDS: Z GUARD REMEDY 4 OZ OINT TP SCH (21:42)
[2020-01-25] MEDS: MINERAL OIL/PETROL OINT 396 GM JAR TP SCH (21:42)
[2020-01-25] MEDS: FLUCONAZOLE (100 MG) 100 MG TABLET GT SCH (22:00)
[2020-01-26] MEDS: BLOOD SUGAR DIAGNOSTIC 1 EACH STRIP IN SCH ×5 (00:25→23:25)
[2020-01-26 00:26] VITALS: BP 134/67
[2020-01-26] MEDS: INSULIN REGULAR, HUMAN 100 UNIT/ML 3 ML VIAL SQ PRN ×5 (00:26→23:25)
[2020-01-26] MEDS: IPRATROPIUM NEB FS 0.5 MG/2.5 ML AMPUL.NEB NEB SCH ×4 (02:10→20:11)
[2020-01-26] MEDS: ALBUTEROL FS 2.5 MG/3 ML VIAL.NEB NEB SCH ×4 (02:11→20:11)
[2020-01-26 04:30] VITALS: BP 150/68
[2020-01-26] MEDS: CLONIDINE HCL 0.1 MG TABLET GT SCH ×2 (04:51→12:59)
[2020-01-26] MEDS: hydrALAZINE HCL 25 MG TABLET GT SCH ×3 (04:51→20:42)
[2020-01-26] MEDS: METOCLOPRAMIDE HCL 10 MG/10 ML UDC GT SCH ×3 (04:52→20:43)
[2020-01-26] MEDS: LABETALOL HCL 300 MG TABLET GT SCH ×3 (04:53→20:44)
[2020-01-26] MEDS ORDERED: ONDANSETRON 4 MG TAB.RAPDIS GT PRN (07:30)
[2020-01-26 08:09] VITALS: BP 127/51
[2020-01-26] MEDS ORDERED: SITAGLIPTIN PHOSPHATE 50 MG TABLET GT SCH (09:00)
[2020-01-26] MEDS: DOXAZOSIN MESYLATE (4 MG) 4 MG TABLET GT SCH ×2 (09:38→20:42)
[2020-01-26] MEDS: LEVETIRACETAM SOL (5 ML) 100 MG/ML UDC GT SCH ×2 (09:39→20:43)
[2020-01-26] MEDS: MINOXIDIL (2.5MG) 2.5 MG TABLET GT SCH ×2 (09:39→17:36)
[2020-01-26] MEDS: VIT B CMPLX 3/FA/VIT C/BIOTIN 1 TAB TABLET GT SCH (09:39)
[2020-01-26] MEDS: FERROUS SULFATE UDC 300 MG/5 ML UDC GT SCH (09:39)
[2020-01-26] MEDS: LORATADINE 10 MG TABLET GT SCH (09:39)
[2020-01-26] MEDS: LACTOBACILLUS RHAMNOSUS GG 1 EACH CAP.SPRINK GT SCH ×2 (09:39→17:35)
[2020-01-26] MEDS: ISOSORBIDE DINITRATE (20MG) 20 MG TABLET GT SCH ×3 (09:39→17:36)
[2020-01-26] MEDS: DOCUSATE SODIUM LIQ 100 MG/10 ML UDC GT SCH ×2 (09:39→20:42)
[2020-01-26] MEDS: BASAGLAR KWIKPEN SQ SCH ×2 (09:40→20:44)
[2020-01-26] MEDS: ACETAMINOPHEN 650 MG/20 ML UDC- SA PATIENTS-PAIN ONLY GT SCH (09:40)
[2020-01-26] MEDS: FAMOTIDINE (20 MG) 20 MG TABLET GT SCH (09:40)
[2020-01-26] MEDS: AMLODIPINE BESYLATE 10 MG TABLET GT SCH (09:40)
[2020-01-26] MEDS: CHLORHEXIDINE GLUCONATE 15 ML UDC MM SCH (09:40)
[2020-01-26] MEDS: MINERAL OIL/PETROL OINT 396 GM JAR TP SCH ×2 (09:41→20:45)
[2020-01-26] MEDS: Z GUARD REMEDY 4 OZ OINT TP SCH ×2 (09:41→20:45)
[2020-01-26 20:41] VITALS: BP 137/58
[2020-01-26] MEDS: FLUCONAZOLE (100 MG) 100 MG TABLET GT SCH (20:42)
[2020-01-26] MEDS: CLONIDINE 0.3 MG TABLET GT SCH (20:42)
[2020-01-26] MEDS: CEFEPIME 1 GM in IV D5W 50 ML IV SCH (21:00)
[2020-01-27] MEDS: VANCOMYCIN 0.75 GM in IV D5W 250 ML IV SCH ×2
[2020-01-27 00:10] VITALS: BP 142/57
[2020-01-27] MEDS: ALBUTEROL FS 2.5 MG/3 ML VIAL.NEB NEB SCH ×4 (01:51→19:01)
[2020-01-27] MEDS: IPRATROPIUM NEB FS 0.5 MG/2.5 ML AMPUL.NEB NEB SCH ×4 (01:51→19:01)
[2020-01-27 04:57] VITALS: BP 157/62
[2020-01-27] MEDS: CLONIDINE 0.3 MG TABLET GT SCH ×3 (05:47→20:26)
[2020-01-27] MEDS: hydrALAZINE HCL 25 MG TABLET GT SCH ×3 (05:47→20:26)
[2020-01-27] MEDS: METOCLOPRAMIDE HCL 10 MG/10 ML UDC GT SCH ×3 (05:47→20:26)
[2020-01-27] MEDS: BLOOD SUGAR DIAGNOSTIC 1 EACH STRIP IN SCH ×4 (05:48→23:20)
[2020-01-27] MEDS: LABETALOL HCL 300 MG TABLET GT SCH ×3 (05:48→20:26)
[2020-01-27] MEDS: INSULIN REGULAR, HUMAN 100 UNIT/ML 3 ML VIAL SQ PRN ×4 (05:48→23:20)
[2020-01-27] MEDS: NEPRO 1,000 ML BOTTLE GT PRN (05:48)
[2020-01-27 07:50] VITALS: BP 155/79
[2020-01-27] MEDS: DOXAZOSIN MESYLATE (4 MG) 4 MG TABLET GT SCH ×2 (08:00→20:26)
[2020-01-27] MEDS: DOCUSATE SODIUM LIQ 100 MG/10 ML UDC GT SCH ×2 (08:01→20:26)
[2020-01-27] MEDS: ISOSORBIDE DINITRATE (20MG) 20 MG TABLET GT SCH ×3 (08:01→16:56)
[2020-01-27] MEDS: LORATADINE 10 MG TABLET GT SCH (08:01)
[2020-01-27] MEDS: SITAGLIPTIN PHOSPHATE 100 MG TABLET GT SCH (08:01)
[2020-01-27] MEDS: LACTOBACILLUS RHAMNOSUS GG 1 EACH CAP.SPRINK GT SCH ×2 (08:01→16:56)
[2020-01-27] MEDS: FERROUS SULFATE UDC 300 MG/5 ML UDC GT SCH (08:01)
[2020-01-27] MEDS: MINOXIDIL (2.5MG) 2.5 MG TABLET GT SCH ×2 (08:03→16:56)
[2020-01-27] MEDS: FAMOTIDINE (20 MG) 20 MG TABLET GT SCH (08:03)
[2020-01-27] MEDS: AMLODIPINE BESYLATE 10 MG TABLET GT SCH (08:03)
[2020-01-27] MEDS: VIT B CMPLX 3/FA/VIT C/BIOTIN 1 TAB TABLET GT SCH (08:04)
[2020-01-27] MEDS: LEVETIRACETAM SOL (5 ML) 100 MG/ML UDC GT SCH ×2 (08:04→20:26)
[2020-01-27] MEDS: ACETAMINOPHEN 650 MG/20 ML UDC- SA PATIENTS-PAIN ONLY GT SCH (08:05)
[2020-01-27] MEDS: CHLORHEXIDINE GLUCONATE 15 ML UDC MM SCH (08:06)
[2020-01-27] MEDS: Z GUARD REMEDY 4 OZ OINT TP SCH ×2 (08:07→20:28)
[2020-01-27] MEDS: MINERAL OIL/PETROL OINT 396 GM JAR TP SCH ×2 (08:07→20:28)
[2020-01-27] MEDS: BASAGLAR KWIKPEN SQ SCH ×2 (08:07→20:27)
[2020-01-27] MEDS: FLUCONAZOLE (100 MG) 100 MG TABLET GT SCH (20:26)
[2020-01-27 20:32] VITALS: BP 177/80
[2020-01-27] MEDS: CEFEPIME 1 GM in IV D5W 50 ML IV SCH (21:00)
[2020-01-27 22:00] VITALS: BP 159/71
[2020-01-28] MEDS: IPRATROPIUM NEB FS 0.5 MG/2.5 ML AMPUL.NEB NEB SCH ×4 (00:44→20:24)
[2020-01-28] MEDS: ALBUTEROL FS 2.5 MG/3 ML VIAL.NEB NEB SCH ×4 (00:44→20:24)
[2020-01-28 05:02] VITALS: BP 157/64
[2020-01-28] MEDS: hydrALAZINE HCL 25 MG TABLET GT SCH (05:07)
[2020-01-28] MEDS: LABETALOL HCL 300 MG TABLET GT SCH ×3 (05:07→20:33)
[2020-01-28] MEDS: CLONIDINE 0.3 MG TABLET GT SCH ×3 (05:07→20:32)
[2020-01-28] MEDS: METOCLOPRAMIDE HCL 10 MG/10 ML UDC GT SCH ×3 (05:07→20:32)
[2020-01-28] MEDS: BLOOD SUGAR DIAGNOSTIC 1 EACH STRIP IN SCH ×4 (05:07→23:32)
[2020-01-28] MEDS: INSULIN REGULAR, HUMAN 100 UNIT/ML 3 ML VIAL SQ PRN ×4 (05:08→23:33)
[2020-01-28] MEDS: NEPRO 1,000 ML BOTTLE GT PRN (05:08)
[2020-01-28 08:21] VITALS: BP 173/57
[2020-01-28] MEDS: SITAGLIPTIN PHOSPHATE 100 MG TABLET GT SCH (09:00)
[2020-01-28] MEDS: LORATADINE 10 MG TABLET GT SCH (09:00)
[2020-01-28] MEDS: AMLODIPINE BESYLATE 10 MG TABLET GT SCH (09:00)
[2020-01-28] MEDS: BASAGLAR KWIKPEN SQ SCH ×2 (09:00→21:20)
[2020-01-28] MEDS: FERROUS SULFATE UDC 300 MG/5 ML UDC GT SCH (09:00)
[2020-01-28] MEDS: MINERAL OIL/PETROL OINT 396 GM JAR TP SCH ×2 (09:00→20:33)
[2020-01-28] MEDS: DOXAZOSIN MESYLATE (4 MG) 4 MG TABLET GT SCH ×2 (09:00→20:32)
[2020-01-28] MEDS: CHLORHEXIDINE GLUCONATE 15 ML UDC MM SCH (09:00)
[2020-01-28] MEDS: Z GUARD REMEDY 4 OZ OINT TP SCH ×2 (09:00→20:33)
[2020-01-28] MEDS: ISOSORBIDE DINITRATE (20MG) 20 MG TABLET GT SCH ×3 (09:00→17:22)
[2020-01-28] MEDS: LEVETIRACETAM SOL (5 ML) 100 MG/ML UDC GT SCH ×2 (09:00→20:32)
[2020-01-28] MEDS: MINOXIDIL (2.5MG) 2.5 MG TABLET GT SCH ×2 (09:00→17:23)
[2020-01-28] MEDS: LACTOBACILLUS RHAMNOSUS GG 1 EACH CAP.SPRINK GT SCH ×2 (09:00→17:21)
[2020-01-28] MEDS: DOCUSATE SODIUM LIQ 100 MG/10 ML UDC GT SCH ×2 (09:00→20:32)
[2020-01-28] MEDS: FAMOTIDINE (20 MG) 20 MG TABLET GT SCH (09:00)
[2020-01-28] MEDS: ACETAMINOPHEN 650 MG/20 ML UDC- SA PATIENTS-PAIN ONLY GT SCH (09:00)
[2020-01-28] MEDS: VIT B CMPLX 3/FA/VIT C/BIOTIN 1 TAB TABLET GT SCH (09:00)
[2020-01-28] MEDS: hydrALAZINE HCL 50 MG TABLET GT SCH ×2 (13:32→20:32)
[2020-01-28 20:01] VITALS: BP 133/68
[2020-01-28] MEDS: FLUCONAZOLE (100 MG) 100 MG TABLET GT SCH (20:32)
[2020-01-28] MEDS: CEFEPIME 1 GM in IV D5W 50 ML IV SCH (21:00)
[2020-01-28] MEDS: HYDROGEN PEROXIDE 480 ML BOTTLE TP PRN (21:25)
[2020-01-29] MEDS: VANCOMYCIN 0.75 GM in IV D5W 250 ML IV SCH ×2
[2020-01-29] MEDS: IPRATROPIUM NEB FS 0.5 MG/2.5 ML AMPUL.NEB NEB SCH ×4 (02:10→19:52)
[2020-01-29] MEDS: ALBUTEROL FS 2.5 MG/3 ML VIAL.NEB NEB SCH ×4 (02:10→19:52)
[2020-01-29] MEDS: LABETALOL HCL 300 MG TABLET GT SCH ×3 (05:46→21:08)
[2020-01-29] MEDS: CLONIDINE 0.3 MG TABLET GT SCH ×3 (05:46→21:06)
[2020-01-29] MEDS: BLOOD SUGAR DIAGNOSTIC 1 EACH STRIP IN SCH ×3 (05:46→18:07)
[2020-01-29] MEDS: INSULIN REGULAR, HUMAN 100 UNIT/ML 3 ML VIAL SQ PRN ×3 (05:46→18:07)
[2020-01-29] MEDS: METOCLOPRAMIDE HCL 10 MG/10 ML UDC GT SCH ×3 (05:46→21:07)
[2020-01-29] MEDS: hydrALAZINE HCL 50 MG TABLET GT SCH ×3 (05:46→21:04)
[2020-01-29] MEDS: NEPRO 1,000 ML BOTTLE GT PRN (05:46)
[2020-01-29] MEDS: MINERAL OIL/PETROL OINT 396 GM JAR TP SCH ×2 (09:00→21:10)
[2020-01-29] MEDS: BASAGLAR KWIKPEN SQ SCH ×2 (09:00→21:32)
[2020-01-29] MEDS: Z GUARD REMEDY 4 OZ OINT TP SCH ×2 (09:00→21:10)
[2020-01-29] MEDS: ACETAMINOPHEN 650 MG/20 ML UDC- SA PATIENTS-PAIN ONLY GT SCH (09:00)
[2020-01-29] MEDS: CHLORHEXIDINE GLUCONATE 15 ML UDC MM SCH (09:00)
[2020-01-29] MEDS: DOXAZOSIN MESYLATE (4 MG) 4 MG TABLET GT SCH ×2 (09:55→21:05)
[2020-01-29] MEDS: LORATADINE 10 MG TABLET GT SCH (09:56)
[2020-01-29] MEDS: DOCUSATE SODIUM LIQ 100 MG/10 ML UDC GT SCH ×2 (09:56→21:05)
[2020-01-29] MEDS: SITAGLIPTIN PHOSPHATE 100 MG TABLET GT SCH (09:57)
[2020-01-29] MEDS: FERROUS SULFATE UDC 300 MG/5 ML UDC GT SCH (09:57)
[2020-01-29] MEDS: LACTOBACILLUS RHAMNOSUS GG 1 EACH CAP.SPRINK GT SCH ×2 (09:57→17:00)
[2020-01-29] MEDS: LEVETIRACETAM SOL (5 ML) 100 MG/ML UDC GT SCH ×2 (09:58→21:07)
[2020-01-29] MEDS: ISOSORBIDE DINITRATE (20MG) 20 MG TABLET GT SCH ×3 (09:58→17:00)
[2020-01-29] MEDS: AMLODIPINE BESYLATE 10 MG TABLET GT SCH (09:59)
[2020-01-29] MEDS: VIT B CMPLX 3/FA/VIT C/BIOTIN 1 TAB TABLET GT SCH (09:59)
[2020-01-29] MEDS: FAMOTIDINE (20 MG) 20 MG TABLET GT SCH (09:59)
[2020-01-29] MEDS: MINOXIDIL (2.5MG) 2.5 MG TABLET GT SCH ×2 (09:59→17:00)
[2020-01-29] MEDS: FLUCONAZOLE (100 MG) 100 MG TABLET GT SCH (21:05)
[2020-01-29] MEDS: CEFEPIME 1 GM in IV D5W 50 ML IV SCH (21:50)
[2020-01-29 22:41] VITALS: BP 148/74
[2020-01-30] MEDS: INSULIN REGULAR, HUMAN 100 UNIT/ML 3 ML VIAL SQ PRN ×3 (00:26→23:50)
[2020-01-30] MEDS: BLOOD SUGAR DIAGNOSTIC 1 EACH STRIP IN SCH ×5 (00:26→23:50)
[2020-01-30] MEDS: ALBUTEROL FS 2.5 MG/3 ML VIAL.NEB NEB SCH ×4 (01:51→19:39)
[2020-01-30] MEDS: IPRATROPIUM NEB FS 0.5 MG/2.5 ML AMPUL.NEB NEB SCH ×4 (01:51→19:39)
[2020-01-30] MEDS: hydrALAZINE HCL 50 MG TABLET GT SCH ×3 (05:00→20:51)
[2020-01-30] MEDS: LABETALOL HCL 300 MG TABLET GT SCH ×3 (05:00→20:57)
[2020-01-30] MEDS: CLONIDINE 0.3 MG TABLET GT SCH ×3 (05:00→20:54)
[2020-01-30] MEDS: METOCLOPRAMIDE HCL 10 MG/10 ML UDC GT SCH ×3 (05:00→20:56)
[2020-01-30] MEDS: NEPRO 1,000 ML BOTTLE GT PRN (06:09)
[2020-01-30 08:09] VITALS: BP 164/86
[2020-01-30] MEDS: HYDROGEN PEROXIDE 480 ML BOTTLE TP PRN (08:15)
[2020-01-30 09:00] VITALS: BP 144/71
[2020-01-30] MEDS: LEVETIRACETAM SOL (5 ML) 100 MG/ML UDC GT SCH ×2 (09:00→20:54)
[2020-01-30] MEDS: SITAGLIPTIN PHOSPHATE 100 MG TABLET GT SCH (09:00)
[2020-01-30] MEDS: FERROUS SULFATE UDC 300 MG/5 ML UDC GT SCH (09:00)
[2020-01-30] MEDS: LORATADINE 10 MG TABLET GT SCH (09:00)
[2020-01-30] MEDS: AMLODIPINE BESYLATE 10 MG TABLET GT SCH (09:00)
[2020-01-30] MEDS: DOXAZOSIN MESYLATE (4 MG) 4 MG TABLET GT SCH ×2 (09:00→20:52)
[2020-01-30] MEDS: MINERAL OIL/PETROL OINT 396 GM JAR TP SCH ×2 (09:00→20:58)
[2020-01-30] MEDS: CHLORHEXIDINE GLUCONATE 15 ML UDC MM SCH (09:00)
[2020-01-30] MEDS: BASAGLAR KWIKPEN SQ SCH ×2 (09:00→21:12)
[2020-01-30] MEDS: FAMOTIDINE (20 MG) 20 MG TABLET GT SCH (09:00)
[2020-01-30] MEDS: VIT B CMPLX 3/FA/VIT C/BIOTIN 1 TAB TABLET GT SCH (09:00)
[2020-01-30] MEDS: LACTOBACILLUS RHAMNOSUS GG 1 EACH CAP.SPRINK GT SCH ×2 (09:00→17:38)
[2020-01-30] MEDS: MINOXIDIL (2.5MG) 2.5 MG TABLET GT SCH ×2 (09:00→17:39)
[2020-01-30] MEDS: Z GUARD REMEDY 4 OZ OINT TP SCH ×2 (09:00→20:58)
[2020-01-30] MEDS: DOCUSATE SODIUM LIQ 100 MG/10 ML UDC GT SCH ×2 (09:00→20:52)
[2020-01-30] MEDS: ISOSORBIDE DINITRATE (20MG) 20 MG TABLET GT SCH ×3 (09:00→17:38)
[2020-01-30] MEDS: ACETAMINOPHEN 650 MG/20 ML UDC- SA PATIENTS-PAIN ONLY GT SCH (10:00)
[2020-01-30 13:00] VITALS: BP 151/76
[2020-01-30 17:00] VITALS: BP 144/73
[2020-01-30 20:05] VITALS: BP 132/58
[2020-01-30] MEDS: FLUCONAZOLE (100 MG) 100 MG TABLET GT SCH (20:53)
[2020-01-30] MEDS: CEFEPIME 1 GM in IV D5W 50 ML IV SCH (21:00)
[2020-01-30 21:14] VITALS: BP 132/58
[2020-01-30] MEDS: VANCOMYCIN 0.75 GM in IV D5W 250 ML IV SCH (23:12)
[2020-01-31] VITALS (8 sets, daily range): BP systolic 123–146; BP diastolic 53–82
[2020-01-31] MEDS: ALBUTEROL FS 2.5 MG/3 ML VIAL.NEB NEB SCH ×4 (01:28→20:06)
[2020-01-31] MEDS: IPRATROPIUM NEB FS 0.5 MG/2.5 ML AMPUL.NEB NEB SCH ×4 (01:28→20:06)
[2020-01-31] MEDS: METOCLOPRAMIDE HCL 10 MG/10 ML UDC GT SCH ×3 (05:00→20:54)
[2020-01-31] MEDS: CLONIDINE 0.3 MG TABLET GT SCH ×3 (05:00→20:53)
[2020-01-31] MEDS: LABETALOL HCL 300 MG TABLET GT SCH ×3 (05:00→20:55)
[2020-01-31] MEDS: NEPRO 1,000 ML BOTTLE GT PRN (05:58)
[2020-01-31] MEDS: hydrALAZINE HCL 50 MG TABLET GT SCH ×3 (05:59→20:51)
[2020-01-31] MEDS: BLOOD SUGAR DIAGNOSTIC 1 EACH STRIP IN SCH ×3 (06:03→17:57)
[2020-01-31] MEDS: INSULIN REGULAR, HUMAN 100 UNIT/ML 3 ML VIAL SQ PRN ×2 (06:04→17:57)
[2020-01-31 06:55] LABS: BASOPHILS # (AUTO) 0.1 /CMM (0.0-0.2); BASOPHILS % (AUTO) 0.7 % (0.0-2.0); HEMATOCRIT 22 % (39-51); HEMOGLOBIN 7.3 g/dL (13.5-17.5); LYMPHOCYTES # (AUTO) 0.9 /CMM (0.8-4.8); LYMPHOCYTES % (AUTO) 9.8 % (20.0-44.0); MEAN CORPUSCULAR HGB CONC 33 g/dl (31.0-36.0); MEAN CORPUSCULAR VOLUME 90 fL (80-96); MONOCYTES # (AUTO) 0.8 /CMM (0.1-1.30); MONOCYTES % (AUTO) 8.5 % (2.0-12.0); NEUTROPHILS # (AUTO) 6.6 /CMM (1.8-8.9); PLATELET COUNT (AUTO) 220 /CMM (150-450); RED BLOOD CELL COUNT(AUTO) 2.46 MIL/uL (4.5-6.0); WHITE BLOOD COUNT (AUTO) 9.5 K/uL (4.3-11.0)
[2020-01-31 07:14] LABS: ALBUMIN 2.8 g/dL (3.4-5.0); BILIRUBIN,TOTAL 0.2 mg/dL (0.2-1.0); CALCIUM, SERUM 10.3 mg/dL (8.5-10.1); CREATININE 2.9 mg/dL (0.6-1.3); MAGNESIUM 2.8 mg/dL (1.8-2.4); PHOSPHORUS 3.7 mg/dL (2.5-4.9); POTASSIUM 3.6 mmol/L (3.5-5.1); TOTAL PROTEIN, SERUM 7.6 g/dL (6.4-8.2)
[2020-01-31] MEDS: DOXAZOSIN MESYLATE (4 MG) 4 MG TABLET GT SCH ×2 (08:45→20:52)
[2020-01-31] MEDS: LACTOBACILLUS RHAMNOSUS GG 1 EACH CAP.SPRINK GT SCH ×2 (08:46→17:55)
[2020-01-31] MEDS: FERROUS SULFATE UDC 300 MG/5 ML UDC GT SCH (08:46)
[2020-01-31] MEDS: FAMOTIDINE (20 MG) 20 MG TABLET GT SCH (08:46)
[2020-01-31] MEDS: SITAGLIPTIN PHOSPHATE 100 MG TABLET GT SCH (08:46)
[2020-01-31] MEDS: BASAGLAR KWIKPEN SQ SCH ×2 (08:46→20:56)
[2020-01-31] MEDS: ISOSORBIDE DINITRATE (20MG) 20 MG TABLET GT SCH ×3 (08:46→17:56)
[2020-01-31] MEDS: LORATADINE 10 MG TABLET GT SCH (08:46)
[2020-01-31] MEDS: MINOXIDIL (2.5MG) 2.5 MG TABLET GT SCH ×2 (08:46→17:56)
[2020-01-31] MEDS: CHLORHEXIDINE GLUCONATE 15 ML UDC MM SCH (08:46)
[2020-01-31] MEDS: AMLODIPINE BESYLATE 10 MG TABLET GT SCH (08:46)
[2020-01-31] MEDS: LEVETIRACETAM SOL (5 ML) 100 MG/ML UDC GT SCH ×2 (08:46→20:53)
[2020-01-31] MEDS: DOCUSATE SODIUM LIQ 100 MG/10 ML UDC GT SCH ×2 (08:46→20:52)
[2020-01-31] MEDS: VIT B CMPLX 3/FA/VIT C/BIOTIN 1 TAB TABLET GT SCH (08:46)
[2020-01-31] MEDS: HYDROGEN PEROXIDE 480 ML BOTTLE TP PRN (08:47)
[2020-01-31] MEDS: Z GUARD REMEDY 4 OZ OINT TP SCH ×2 (08:47→20:56)
[2020-01-31] MEDS: MINERAL OIL/PETROL OINT 396 GM JAR TP SCH ×2 (08:47→20:56)
[2020-01-31] MEDS: ACETAMINOPHEN 650 MG/20 ML UDC- SA PATIENTS-PAIN ONLY GT SCH (09:59)
[2020-01-31] MEDS: FLUCONAZOLE (100 MG) 100 MG TABLET GT SCH (20:53)
[2020-01-31] MEDS: CEFEPIME 1 GM in IV D5W 50 ML IV SCH (21:00)
[2020-02-01] VITALS (7 sets, daily range): BP systolic 137–151; BP diastolic 66–78
[2020-02-01] MEDS: BLOOD SUGAR DIAGNOSTIC 1 EACH STRIP IN SCH ×4 (00:20→17:53)
[2020-02-01] MEDS: INSULIN REGULAR, HUMAN 100 UNIT/ML 3 ML VIAL SQ PRN ×4 (00:20→17:53)
[2020-02-01] MEDS: ALBUTEROL FS 2.5 MG/3 ML VIAL.NEB NEB SCH ×4 (02:05→19:22)
[2020-02-01] MEDS: IPRATROPIUM NEB FS 0.5 MG/2.5 ML AMPUL.NEB NEB SCH ×4 (02:05→19:22)
[2020-02-01] MEDS: CLONIDINE 0.3 MG TABLET GT SCH ×3 (05:00→20:53)
[2020-02-01] MEDS: METOCLOPRAMIDE HCL 10 MG/10 ML UDC GT SCH ×3 (05:00→20:55)
[2020-02-01] MEDS: LABETALOL HCL 300 MG TABLET GT SCH ×3 (05:00→20:56)
[2020-02-01] MEDS: hydrALAZINE HCL 50 MG TABLET GT SCH ×3 (05:00→20:53)
[2020-02-01] MEDS: NEPRO 1,000 ML BOTTLE GT PRN (06:05)
[2020-02-01] MEDS: ACETAMINOPHEN 650 MG/20 ML UDC- SA PATIENTS-PAIN ONLY GT SCH (09:00)
[2020-02-01] MEDS: DOCUSATE SODIUM LIQ 100 MG/10 ML UDC GT SCH ×2 (09:00→20:53)
[2020-02-01] MEDS: FAMOTIDINE (20 MG) 20 MG TABLET GT SCH (09:00)
[2020-02-01] MEDS: Z GUARD REMEDY 4 OZ OINT TP SCH ×2 (09:00→20:56)
[2020-02-01] MEDS: LORATADINE 10 MG TABLET GT SCH (09:00)
[2020-02-01] MEDS: SITAGLIPTIN PHOSPHATE 100 MG TABLET GT SCH (09:00)
[2020-02-01] MEDS: LACTOBACILLUS RHAMNOSUS GG 1 EACH CAP.SPRINK GT SCH ×2 (09:00→17:52)
[2020-02-01] MEDS: AMLODIPINE BESYLATE 10 MG TABLET GT SCH (09:00)
[2020-02-01] MEDS: MINOXIDIL (2.5MG) 2.5 MG TABLET GT SCH ×2 (09:00→17:52)
[2020-02-01] MEDS: BASAGLAR KWIKPEN SQ SCH ×2 (09:00→21:00)
[2020-02-01] MEDS: DOXAZOSIN MESYLATE (4 MG) 4 MG TABLET GT SCH ×2 (09:00→20:53)
[2020-02-01] MEDS: LEVETIRACETAM SOL (5 ML) 100 MG/ML UDC GT SCH ×2 (09:00→20:54)
[2020-02-01] MEDS: CHLORHEXIDINE GLUCONATE 15 ML UDC MM SCH (09:00)
[2020-02-01] MEDS: ISOSORBIDE DINITRATE (20MG) 20 MG TABLET GT SCH ×3 (09:00→17:52)
[2020-02-01] MEDS: FERROUS SULFATE UDC 300 MG/5 ML UDC GT SCH (09:00)
[2020-02-01] MEDS: VIT B CMPLX 3/FA/VIT C/BIOTIN 1 TAB TABLET GT SCH (09:00)
[2020-02-01] MEDS: MINERAL OIL/PETROL OINT 396 GM JAR TP SCH ×2 (09:00→20:56)
[2020-02-01] MEDS: RETACRIT 10,000 UNITS SQ SCH (13:00)
[2020-02-01] MEDS: FLUCONAZOLE (100 MG) 100 MG TABLET GT SCH (20:53)
[2020-02-02] VITALS (8 sets, daily range): BP systolic 129–159; BP diastolic 45–75
[2020-02-02] MEDS: BLOOD SUGAR DIAGNOSTIC 1 EACH STRIP IN SCH ×5 (00:21→23:54)
[2020-02-02] MEDS: INSULIN REGULAR, HUMAN 100 UNIT/ML 3 ML VIAL SQ PRN ×5 (00:22→23:56)
[2020-02-02] MEDS: ALBUTEROL FS 2.5 MG/3 ML VIAL.NEB NEB SCH ×4 (01:09→19:25)
[2020-02-02] MEDS: IPRATROPIUM NEB FS 0.5 MG/2.5 ML AMPUL.NEB NEB SCH ×4 (01:09→19:25)
[2020-02-02] MEDS: hydrALAZINE HCL 50 MG TABLET GT SCH ×3 (05:36→21:32)
[2020-02-02] MEDS: METOCLOPRAMIDE HCL 10 MG/10 ML UDC GT SCH ×3 (05:37→21:33)
[2020-02-02] MEDS: CLONIDINE 0.3 MG TABLET GT SCH ×3 (05:37→21:33)
[2020-02-02] MEDS: LABETALOL HCL 300 MG TABLET GT SCH ×3 (05:37→21:33)
[2020-02-02] MEDS: NEPRO 1,000 ML BOTTLE GT PRN (06:13)
[2020-02-02] MEDS: CHLORHEXIDINE GLUCONATE 15 ML UDC MM SCH (09:00)
[2020-02-02] MEDS: Z GUARD REMEDY 4 OZ OINT TP SCH ×2 (09:00→21:33)
[2020-02-02] MEDS: MINERAL OIL/PETROL OINT 396 GM JAR TP SCH ×2 (09:00→21:33)
[2020-02-02] MEDS: LACTOBACILLUS RHAMNOSUS GG 1 EACH CAP.SPRINK GT SCH ×2 (09:41→17:48)
[2020-02-02] MEDS: LORATADINE 10 MG TABLET GT SCH (09:41)
[2020-02-02] MEDS: DOXAZOSIN MESYLATE (4 MG) 4 MG TABLET GT SCH ×2 (09:41→21:33)
[2020-02-02] MEDS: FERROUS SULFATE UDC 300 MG/5 ML UDC GT SCH (09:41)
[2020-02-02] MEDS: DOCUSATE SODIUM LIQ 100 MG/10 ML UDC GT SCH ×2 (09:41→21:33)
[2020-02-02] MEDS: SITAGLIPTIN PHOSPHATE 100 MG TABLET GT SCH (09:42)
[2020-02-02] MEDS: ISOSORBIDE DINITRATE (20MG) 20 MG TABLET GT SCH ×3 (09:46→17:48)
[2020-02-02] MEDS: LEVETIRACETAM SOL (5 ML) 100 MG/ML UDC GT SCH ×2 (09:47→21:33)
[2020-02-02] MEDS: VIT B CMPLX 3/FA/VIT C/BIOTIN 1 TAB TABLET GT SCH (09:48)
[2020-02-02] MEDS: MINOXIDIL (2.5MG) 2.5 MG TABLET GT SCH ×2 (09:48→17:48)
[2020-02-02] MEDS: AMLODIPINE BESYLATE 10 MG TABLET GT SCH (09:49)
[2020-02-02] MEDS: ACETAMINOPHEN 650 MG/20 ML UDC- SA PATIENTS-PAIN ONLY GT SCH (09:50)
[2020-02-02] MEDS: FAMOTIDINE (20 MG) 20 MG TABLET GT SCH (09:50)
[2020-02-02] MEDS: BASAGLAR KWIKPEN SQ SCH ×2 (10:00→21:51)
[2020-02-02 16:57] LABS: BASOPHILS # (AUTO) 0.1 /CMM (0.0-0.2); BASOPHILS % (AUTO) 0.7 % (0.0-2.0); EOSINOPHILS % (AUTO) 10.9 % (0.0-6.0); HEMATOCRIT 21 % (39-51); LYMPHOCYTES # (AUTO) 0.9 /CMM (0.8-4.8); LYMPHOCYTES % (AUTO) 8.8 % (20.0-44.0); MEAN CORPUSCULAR HGB CONC 33 g/dl (31.0-36.0); MEAN CORPUSCULAR VOLUME 89 fL (80-96); MONOCYTES % (AUTO) 9.8 % (2.0-12.0); NEUTROPHILS # (AUTO) 6.8 /CMM (1.8-8.9); NEUTROPHILS % (AUTO) 69.8 % (43.0-81.0); PLATELET COUNT (AUTO) 192 /CMM (150-450); RED BLOOD CELL COUNT(AUTO) 2.37 MIL/uL (4.5-6.0); WHITE BLOOD COUNT (AUTO) 9.8 K/uL (4.3-11.0)
[2020-02-02 17:16] LABS: CALCIUM, SERUM 9.6 mg/dL (8.5-10.1); CREATININE 3.4 mg/dL (0.6-1.3); POTASSIUM 3.8 mmol/L (3.5-5.1)
[2020-02-02 17:20] LABS: HEMOGLOBIN 6.9 g/dL (13.5-17.5)
[2020-02-02] MEDS ORDERED: PAMIDRONATE 30 MG in IV NS 0.9% 500 ML IV ONE (17:30)
[2020-02-02 18:01] LABS: BAND % (MANUAL) 1 % (0.0-5.0); EOSINOPHILS % (MANUAL) 12 % (0-4); LYMPHOCYTES % (MANUAL) 14 % (16-48); MONOCYTES % (MANUAL) 5 % (0-11.0); NEUTROPHILS % (MANUAL) 68 (42-76)
[2020-02-02] MEDS: FLUCONAZOLE (100 MG) 100 MG TABLET GT SCH (21:33)
[2020-02-03] VITALS (7 sets, daily range): BP systolic 121–133; BP diastolic 64–69
[2020-02-03] MEDS: IPRATROPIUM NEB FS 0.5 MG/2.5 ML AMPUL.NEB NEB SCH ×4 (01:12→19:37)
[2020-02-03] MEDS: ALBUTEROL FS 2.5 MG/3 ML VIAL.NEB NEB SCH ×4 (01:12→19:37)
[2020-02-03] MEDS: LABETALOL HCL 300 MG TABLET GT SCH ×3 (05:50→21:58)
[2020-02-03] MEDS: NEPRO 1,000 ML BOTTLE GT PRN (05:50)
[2020-02-03] MEDS: hydrALAZINE HCL 50 MG TABLET GT SCH ×3 (05:50→21:58)
[2020-02-03] MEDS: METOCLOPRAMIDE HCL 10 MG/10 ML UDC GT SCH ×3 (05:50→21:58)
[2020-02-03] MEDS: CLONIDINE 0.3 MG TABLET GT SCH ×3 (05:50→21:58)
[2020-02-03] MEDS: BLOOD SUGAR DIAGNOSTIC 1 EACH STRIP IN SCH ×3 (05:50→18:00)
[2020-02-03] MEDS: INSULIN REGULAR, HUMAN 100 UNIT/ML 3 ML VIAL SQ PRN ×3 (05:51→19:07)
[2020-02-03 06:18] LABS: CALCIUM, SERUM 9.8 mg/dL (8.5-10.1); CREATININE 3.4 mg/dL (0.6-1.3); POTASSIUM 3.7 mmol/L (3.5-5.1)
[2020-02-03 06:26] LABS: BASOPHILS # (AUTO) 0.1 /CMM (0.0-0.2); BASOPHILS % (AUTO) 0.8 % (0.0-2.0); EOSINOPHILS % (AUTO) 11.1 % (0.0-6.0); HEMATOCRIT 23 % (39-51); HEMOGLOBIN 7.5 g/dL (13.5-17.5); LYMPHOCYTES # (AUTO) 0.9 /CMM (0.8-4.8); LYMPHOCYTES % (AUTO) 9.5 % (20.0-44.0); MEAN CORPUSCULAR HGB CONC 33 g/dl (31.0-36.0); MEAN CORPUSCULAR VOLUME 89 fL (80-96); MONOCYTES # (AUTO) 0.9 /CMM (0.1-1.30); MONOCYTES % (AUTO) 9.9 % (2.0-12.0); NEUTROPHILS # (AUTO) 6.2 /CMM (1.8-8.9); NEUTROPHILS % (AUTO) 68.7 % (43.0-81.0); PLATELET COUNT (AUTO) 199 /CMM (150-450); RED BLOOD CELL COUNT(AUTO) 2.59 MIL/uL (4.5-6.0); WHITE BLOOD COUNT (AUTO) 9.1 K/uL (4.3-11.0)
[2020-02-03] MEDS: DOCUSATE SODIUM LIQ 100 MG/10 ML UDC GT SCH ×2 (09:00→21:58)
[2020-02-03] MEDS: MINOXIDIL (2.5MG) 2.5 MG TABLET GT SCH ×2 (09:00→16:48)
[2020-02-03] MEDS: SITAGLIPTIN PHOSPHATE 100 MG TABLET GT SCH (09:00)
[2020-02-03] MEDS: LACTOBACILLUS RHAMNOSUS GG 1 EACH CAP.SPRINK GT SCH ×2 (09:00→16:48)
[2020-02-03] MEDS: MINERAL OIL/PETROL OINT 396 GM JAR TP SCH ×2 (09:00→21:59)
[2020-02-03] MEDS: Z GUARD REMEDY 4 OZ OINT TP SCH ×2 (09:00→21:59)
[2020-02-03] MEDS: DOXAZOSIN MESYLATE (4 MG) 4 MG TABLET GT SCH ×2 (09:00→21:58)
[2020-02-03] MEDS: ACETAMINOPHEN 650 MG/20 ML UDC- SA PATIENTS-PAIN ONLY GT SCH (09:00)
[2020-02-03] MEDS: VIT B CMPLX 3/FA/VIT C/BIOTIN 1 TAB TABLET GT SCH (09:00)
[2020-02-03] MEDS: ISOSORBIDE DINITRATE (20MG) 20 MG TABLET GT SCH ×3 (09:00→16:48)
[2020-02-03] MEDS: LEVETIRACETAM SOL (5 ML) 100 MG/ML UDC GT SCH ×2 (09:00→21:58)
[2020-02-03] MEDS: FAMOTIDINE (20 MG) 20 MG TABLET GT SCH (09:00)
[2020-02-03] MEDS: FERROUS SULFATE UDC 300 MG/5 ML UDC GT SCH (09:00)
[2020-02-03] MEDS: LORATADINE 10 MG TABLET GT SCH (09:00)
[2020-02-03] MEDS: AMLODIPINE BESYLATE 10 MG TABLET GT SCH (09:00)
[2020-02-03] MEDS: CHLORHEXIDINE GLUCONATE 15 ML UDC MM SCH (09:00)
[2020-02-03] MEDS: BASAGLAR KWIKPEN SQ SCH ×2 (09:00→21:55)
[2020-02-03] MEDS: BACI/NEOM/POLY B OINT PKT 1 UDPKT PACKET TP SCH (15:00)
[2020-02-03] MEDS: FLUCONAZOLE (100 MG) 100 MG TABLET GT SCH (21:00)
[2020-02-04] VITALS (9 sets, daily range): BP systolic 121–140; BP diastolic 59–76
[2020-02-04] MEDS: BLOOD SUGAR DIAGNOSTIC 1 EACH STRIP IN SCH ×4 (00:30→17:00)
[2020-02-04] MEDS: INSULIN REGULAR, HUMAN 100 UNIT/ML 3 ML VIAL SQ PRN ×4 (00:30→17:07)
[2020-02-04] MEDS: IPRATROPIUM NEB FS 0.5 MG/2.5 ML AMPUL.NEB NEB SCH ×4 (00:36→19:15)
[2020-02-04] MEDS: ALBUTEROL FS 2.5 MG/3 ML VIAL.NEB NEB SCH ×4 (00:36→19:15)
[2020-02-04] MEDS: hydrALAZINE HCL 50 MG TABLET GT SCH ×3 (05:26→21:50)
[2020-02-04] MEDS: LABETALOL HCL 300 MG TABLET GT SCH ×3 (05:26→21:51)
[2020-02-04] MEDS: CLONIDINE 0.3 MG TABLET GT SCH ×3 (05:26→21:50)
[2020-02-04] MEDS: METOCLOPRAMIDE HCL 10 MG/10 ML UDC GT SCH ×3 (05:26→21:50)
[2020-02-04] MEDS: NEPRO 1,000 ML BOTTLE GT PRN (05:37)
[2020-02-04] MEDS: Z GUARD REMEDY 4 OZ OINT TP SCH ×2 (09:00→21:52)
[2020-02-04] MEDS: BACI/NEOM/POLY B OINT PKT 1 UDPKT PACKET TP SCH (09:00)
[2020-02-04] MEDS: MINERAL OIL/PETROL OINT 396 GM JAR TP SCH ×2 (09:00→21:51)
[2020-02-04] MEDS: DOXAZOSIN MESYLATE (4 MG) 4 MG TABLET GT SCH ×2 (09:01→21:50)
[2020-02-04] MEDS: FERROUS SULFATE UDC 300 MG/5 ML UDC GT SCH (09:02)
[2020-02-04] MEDS: DOCUSATE SODIUM LIQ 100 MG/10 ML UDC GT SCH ×2 (09:02→21:50)
[2020-02-04] MEDS: LORATADINE 10 MG TABLET GT SCH (09:02)
[2020-02-04] MEDS: LACTOBACILLUS RHAMNOSUS GG 1 EACH CAP.SPRINK GT SCH ×2 (09:02→16:57)
[2020-02-04] MEDS: SITAGLIPTIN PHOSPHATE 100 MG TABLET GT SCH (09:03)
[2020-02-04] MEDS: LEVETIRACETAM SOL (5 ML) 100 MG/ML UDC GT SCH ×2 (09:04→21:50)
[2020-02-04] MEDS: ISOSORBIDE DINITRATE (20MG) 20 MG TABLET GT SCH ×3 (09:04→16:58)
[2020-02-04] MEDS: MINOXIDIL (2.5MG) 2.5 MG TABLET GT SCH ×2 (09:05→16:59)
[2020-02-04] MEDS: VIT B CMPLX 3/FA/VIT C/BIOTIN 1 TAB TABLET GT SCH (09:05)
[2020-02-04] MEDS: FAMOTIDINE (20 MG) 20 MG TABLET GT SCH (09:09)
[2020-02-04] MEDS: CHLORHEXIDINE GLUCONATE 15 ML UDC MM SCH (09:10)
[2020-02-04] MEDS: ACETAMINOPHEN 650 MG/20 ML UDC- SA PATIENTS-PAIN ONLY GT SCH (09:10)
[2020-02-04] MEDS: BASAGLAR KWIKPEN SQ SCH ×2 (09:20→21:52)
[2020-02-04] MEDS: AMLODIPINE BESYLATE 10 MG TABLET GT SCH (09:33)
[2020-02-04] MEDS: FLUCONAZOLE (100 MG) 100 MG TABLET GT SCH (21:50)
[2020-02-05] VITALS (7 sets, daily range): BP systolic 125–137; BP diastolic 53–74
[2020-02-05] MEDS: IPRATROPIUM NEB FS 0.5 MG/2.5 ML AMPUL.NEB NEB SCH ×4 (00:32→19:40)
[2020-02-05] MEDS: ALBUTEROL FS 2.5 MG/3 ML VIAL.NEB NEB SCH ×4 (00:32→19:40)
[2020-02-05] MEDS: BLOOD SUGAR DIAGNOSTIC 1 EACH STRIP IN SCH ×4 (00:46→17:03)
[2020-02-05] MEDS: INSULIN REGULAR, HUMAN 100 UNIT/ML 3 ML VIAL SQ PRN ×4 (00:47→17:05)
[2020-02-05] MEDS: METOCLOPRAMIDE HCL 10 MG/10 ML UDC GT SCH ×3 (05:08→21:30)
[2020-02-05] MEDS: LABETALOL HCL 300 MG TABLET GT SCH ×3 (05:24→21:30)
[2020-02-05] MEDS: CLONIDINE 0.3 MG TABLET GT SCH ×3 (05:24→21:30)
[2020-02-05] MEDS: hydrALAZINE HCL 50 MG TABLET GT SCH ×3 (05:25→21:29)
[2020-02-05] MEDS: NEPRO 1,000 ML BOTTLE GT PRN (06:12)
[2020-02-05] MEDS: FERROUS SULFATE UDC 300 MG/5 ML UDC GT SCH (08:53)
[2020-02-05] MEDS: LACTOBACILLUS RHAMNOSUS GG 1 EACH CAP.SPRINK GT SCH ×2 (08:53→16:49)
[2020-02-05] MEDS: SITAGLIPTIN PHOSPHATE 100 MG TABLET GT SCH (08:53)
[2020-02-05] MEDS: LORATADINE 10 MG TABLET GT SCH (08:53)
[2020-02-05] MEDS: DOXAZOSIN MESYLATE (4 MG) 4 MG TABLET GT SCH ×2 (08:53→21:30)
[2020-02-05] MEDS: DOCUSATE SODIUM LIQ 100 MG/10 ML UDC GT SCH ×2 (08:53→21:30)
[2020-02-05] MEDS: ISOSORBIDE DINITRATE (20MG) 20 MG TABLET GT SCH ×3 (08:54→16:50)
[2020-02-05] MEDS: LEVETIRACETAM SOL (5 ML) 100 MG/ML UDC GT SCH ×2 (08:54→21:30)
[2020-02-05] MEDS: MINOXIDIL (2.5MG) 2.5 MG TABLET GT SCH ×2 (08:54→16:50)
[2020-02-05] MEDS: VIT B CMPLX 3/FA/VIT C/BIOTIN 1 TAB TABLET GT SCH (08:54)
[2020-02-05] MEDS: FAMOTIDINE (20 MG) 20 MG TABLET GT SCH (08:55)
[2020-02-05] MEDS: CHLORHEXIDINE GLUCONATE 15 ML UDC MM SCH (08:55)
[2020-02-05] MEDS: AMLODIPINE BESYLATE 10 MG TABLET GT SCH (08:55)
[2020-02-05] MEDS: ACETAMINOPHEN 650 MG/20 ML UDC- SA PATIENTS-PAIN ONLY GT SCH (08:55)
[2020-02-05] MEDS: MINERAL OIL/PETROL OINT 396 GM JAR TP SCH ×2 (08:58→21:31)
[2020-02-05] MEDS: BASAGLAR KWIKPEN SQ SCH ×2 (08:58→21:30)
[2020-02-05] MEDS: BACI/NEOM/POLY B OINT PKT 1 UDPKT PACKET TP SCH (08:58)
[2020-02-05] MEDS: Z GUARD REMEDY 4 OZ OINT TP SCH ×2 (08:58→21:31)
[2020-02-06] VITALS (9 sets, daily range): BP systolic 101–150; BP diastolic 57–78
[2020-02-06] MEDS: BLOOD SUGAR DIAGNOSTIC 1 EACH STRIP IN SCH ×4 (00:07→18:00)
[2020-02-06] MEDS: IPRATROPIUM NEB FS 0.5 MG/2.5 ML AMPUL.NEB NEB SCH ×4 (01:38→19:27)
[2020-02-06] MEDS: ALBUTEROL FS 2.5 MG/3 ML VIAL.NEB NEB SCH ×4 (01:38→19:27)
[2020-02-06] MEDS: hydrALAZINE HCL 50 MG TABLET GT SCH ×3 (05:00→21:04)
[2020-02-06] MEDS: METOCLOPRAMIDE HCL 10 MG/10 ML UDC GT SCH ×3 (05:00→21:04)
[2020-02-06] MEDS: LABETALOL HCL 300 MG TABLET GT SCH ×3 (05:00→21:48)
[2020-02-06] MEDS: CLONIDINE 0.3 MG TABLET GT SCH ×3 (05:00→21:47)
[2020-02-06] MEDS: FAMOTIDINE (20 MG) 20 MG TABLET GT SCH (09:00)
[2020-02-06] MEDS: DOCUSATE SODIUM LIQ 100 MG/10 ML UDC GT SCH ×2 (09:00→20:53)
[2020-02-06] MEDS: BACI/NEOM/POLY B OINT PKT 1 UDPKT PACKET TP SCH (09:00)
[2020-02-06] MEDS: BASAGLAR KWIKPEN SQ SCH ×2 (09:00→21:38)
[2020-02-06] MEDS: VIT B CMPLX 3/FA/VIT C/BIOTIN 1 TAB TABLET GT SCH (09:00)
[2020-02-06] MEDS: LORATADINE 10 MG TABLET GT SCH (09:00)
[2020-02-06] MEDS: Z GUARD REMEDY 4 OZ OINT TP SCH ×2 (09:00→21:05)
[2020-02-06] MEDS: LEVETIRACETAM SOL (5 ML) 100 MG/ML UDC GT SCH ×2 (09:00→20:56)
[2020-02-06] MEDS: LACTOBACILLUS RHAMNOSUS GG 1 EACH CAP.SPRINK GT SCH ×2 (09:00→17:59)
[2020-02-06] MEDS: AMLODIPINE BESYLATE 10 MG TABLET GT SCH (09:00)
[2020-02-06] MEDS: MINERAL OIL/PETROL OINT 396 GM JAR TP SCH ×2 (09:00→21:05)
[2020-02-06] MEDS: MINOXIDIL (2.5MG) 2.5 MG TABLET GT SCH ×2 (09:00→17:00)
[2020-02-06] MEDS: DOXAZOSIN MESYLATE (4 MG) 4 MG TABLET GT SCH ×2 (09:00→20:52)
[2020-02-06] MEDS: SITAGLIPTIN PHOSPHATE 100 MG TABLET GT SCH (09:00)
[2020-02-06] MEDS: ISOSORBIDE DINITRATE (20MG) 20 MG TABLET GT SCH ×3 (09:00→18:00)
[2020-02-06] MEDS: FERROUS SULFATE UDC 300 MG/5 ML UDC GT SCH (09:00)
[2020-02-06] MEDS: CHLORHEXIDINE GLUCONATE 15 ML UDC MM SCH (09:00)
[2020-02-06] MEDS: ACETAMINOPHEN 650 MG/20 ML UDC- SA PATIENTS-PAIN ONLY GT SCH (11:00)
[2020-02-06 11:06] LABS: BETA-2 MICROGLOBULIN, SERUM 14.1 mg/L (0.6-2.4)
[2020-02-06] MEDS: NEPRO 1,000 ML BOTTLE GT PRN (14:03)
[2020-02-06] MEDS: INSULIN REGULAR, HUMAN 100 UNIT/ML 3 ML VIAL SQ PRN (18:01)
[2020-02-07] VITALS (8 sets, daily range): BP systolic 121–136; BP diastolic 61–74
[2020-02-07] MEDS: BLOOD SUGAR DIAGNOSTIC 1 EACH STRIP IN SCH ×5 (00:15→23:48)
[2020-02-07] MEDS: INSULIN REGULAR, HUMAN 100 UNIT/ML 3 ML VIAL SQ PRN ×5 (00:15→23:49)
[2020-02-07] MEDS: IPRATROPIUM NEB FS 0.5 MG/2.5 ML AMPUL.NEB NEB SCH ×4 (01:26→19:05)
[2020-02-07] MEDS: ALBUTEROL FS 2.5 MG/3 ML VIAL.NEB NEB SCH ×4 (01:26→19:05)
[2020-02-07] MEDS: hydrALAZINE HCL 50 MG TABLET GT SCH ×3 (04:34→21:25)
[2020-02-07] MEDS: METOCLOPRAMIDE HCL 10 MG/10 ML UDC GT SCH ×3 (04:35→21:26)
[2020-02-07] MEDS: LABETALOL HCL 300 MG TABLET GT SCH ×3 (05:24→21:26)
[2020-02-07] MEDS: CLONIDINE 0.3 MG TABLET GT SCH ×3 (05:24→21:26)
[2020-02-07] MEDS: BACI/NEOM/POLY B OINT PKT 1 UDPKT PACKET TP SCH (09:00)
[2020-02-07] MEDS: SITAGLIPTIN PHOSPHATE 100 MG TABLET GT SCH (09:00)
[2020-02-07] MEDS: Z GUARD REMEDY 4 OZ OINT TP SCH ×2 (09:00→21:26)
[2020-02-07] MEDS: MINERAL OIL/PETROL OINT 396 GM JAR TP SCH ×2 (09:00→21:26)
[2020-02-07] MEDS: DOXAZOSIN MESYLATE (4 MG) 4 MG TABLET GT SCH ×2 (09:17→21:26)
[2020-02-07] MEDS: LORATADINE 10 MG TABLET GT SCH (09:18)
[2020-02-07] MEDS: DOCUSATE SODIUM LIQ 100 MG/10 ML UDC GT SCH ×2 (09:18→21:26)
[2020-02-07] MEDS: LEVETIRACETAM SOL (5 ML) 100 MG/ML UDC GT SCH ×2 (09:18→21:26)
[2020-02-07] MEDS: ISOSORBIDE DINITRATE (20MG) 20 MG TABLET GT SCH ×3 (09:18→16:40)
[2020-02-07] MEDS: FERROUS SULFATE UDC 300 MG/5 ML UDC GT SCH (09:18)
[2020-02-07] MEDS: LACTOBACILLUS RHAMNOSUS GG 1 EACH CAP.SPRINK GT SCH ×2 (09:18→16:40)
[2020-02-07] MEDS: MINOXIDIL (2.5MG) 2.5 MG TABLET GT SCH ×2 (09:18→16:41)
[2020-02-07] MEDS: ACETAMINOPHEN 650 MG/20 ML UDC- SA PATIENTS-PAIN ONLY GT SCH (09:19)
[2020-02-07] MEDS: AMLODIPINE BESYLATE 10 MG TABLET GT SCH (09:19)
[2020-02-07] MEDS: FAMOTIDINE (20 MG) 20 MG TABLET GT SCH (09:19)
[2020-02-07] MEDS: CHLORHEXIDINE GLUCONATE 15 ML UDC MM SCH (09:20)
[2020-02-07] MEDS: BASAGLAR KWIKPEN SQ SCH ×2 (09:31→21:26)
[2020-02-07] MEDS: VIT B CMPLX 3/FA/VIT C/BIOTIN 1 TAB TABLET GT SCH (09:31)
[2020-02-07] MEDS: NEPRO 1,000 ML BOTTLE GT PRN (16:44)
[2020-02-08] MEDS: ALBUTEROL FS 2.5 MG/3 ML VIAL.NEB NEB SCH ×4 (01:02→20:03)
[2020-02-08] MEDS: IPRATROPIUM NEB FS 0.5 MG/2.5 ML AMPUL.NEB NEB SCH ×4 (01:02→20:03)
[2020-02-08 03:38] VITALS: BP 130/72
[2020-02-08 05:57] VITALS: BP 128/67
[2020-02-08] MEDS: METOCLOPRAMIDE HCL 10 MG/10 ML UDC GT SCH ×3 (05:59→21:49)
[2020-02-08] MEDS: BLOOD SUGAR DIAGNOSTIC 1 EACH STRIP IN SCH ×3 (05:59→18:06)
[2020-02-08] MEDS: CLONIDINE 0.3 MG TABLET GT SCH ×3 (05:59→21:48)
[2020-02-08] MEDS: hydrALAZINE HCL 50 MG TABLET GT SCH ×3 (05:59→21:48)
[2020-02-08] MEDS: LABETALOL HCL 300 MG TABLET GT SCH ×3 (05:59→21:49)
[2020-02-08] MEDS: INSULIN REGULAR, HUMAN 100 UNIT/ML 3 ML VIAL SQ PRN ×3 (06:00→18:22)
[2020-02-08 08:00] VITALS: BP 120/53
[2020-02-08 09:00] VITALS: BP 120/53
[2020-02-08] MEDS: LEVETIRACETAM SOL (5 ML) 100 MG/ML UDC GT SCH ×2 (09:00→21:49)
[2020-02-08] MEDS: AMLODIPINE BESYLATE 10 MG TABLET GT SCH (09:00)
[2020-02-08] MEDS: ISOSORBIDE DINITRATE (20MG) 20 MG TABLET GT SCH ×3 (09:00→17:45)
[2020-02-08] MEDS: MINOXIDIL (2.5MG) 2.5 MG TABLET GT SCH ×2 (09:00→17:44)
[2020-02-08] MEDS: LORATADINE 10 MG TABLET GT SCH (09:00)
[2020-02-08] MEDS: DOXAZOSIN MESYLATE (4 MG) 4 MG TABLET GT SCH ×2 (09:00→21:48)
[2020-02-08] MEDS: BACI/NEOM/POLY B OINT PKT 1 UDPKT PACKET TP SCH (09:00)
[2020-02-08] MEDS: Z GUARD REMEDY 4 OZ OINT TP SCH ×2 (09:00→21:51)
[2020-02-08] MEDS: FAMOTIDINE (20 MG) 20 MG TABLET GT SCH (09:00)
[2020-02-08] MEDS: MINERAL OIL/PETROL OINT 396 GM JAR TP SCH ×2 (09:00→21:50)
[2020-02-08] MEDS: DOCUSATE SODIUM LIQ 100 MG/10 ML UDC GT SCH ×2 (09:00→21:48)
[2020-02-08] MEDS: LACTOBACILLUS RHAMNOSUS GG 1 EACH CAP.SPRINK GT SCH ×2 (09:00→17:42)
[2020-02-08] MEDS: ACETAMINOPHEN 650 MG/20 ML UDC- SA PATIENTS-PAIN ONLY GT SCH (09:00)
[2020-02-08] MEDS: SITAGLIPTIN PHOSPHATE 100 MG TABLET GT SCH (09:00)
[2020-02-08] MEDS: BASAGLAR KWIKPEN SQ SCH ×2 (09:00→21:50)
[2020-02-08] MEDS: CHLORHEXIDINE GLUCONATE 15 ML UDC MM SCH (09:00)
[2020-02-08] MEDS: VIT B CMPLX 3/FA/VIT C/BIOTIN 1 TAB TABLET GT SCH (09:00)
[2020-02-08] MEDS: FERROUS SULFATE UDC 300 MG/5 ML UDC GT SCH (09:00)
[2020-02-08] MEDS: RETACRIT 10,000 UNITS SQ SCH (13:35)
[2020-02-08 20:38] VITALS: BP 142/69
[2020-02-08 21:00] VITALS: BP 140/70
[2020-02-09] VITALS (12 sets, daily range): BP systolic 109–149; BP diastolic 53–76
[2020-02-09] MEDS: BLOOD SUGAR DIAGNOSTIC 1 EACH STRIP IN SCH ×5 (00:29→23:31)
[2020-02-09] MEDS: INSULIN REGULAR, HUMAN 100 UNIT/ML 3 ML VIAL SQ PRN ×5 (00:32→23:52)
[2020-02-09] MEDS: ALBUTEROL FS 2.5 MG/3 ML VIAL.NEB NEB SCH ×4 (01:13→20:06)
[2020-02-09] MEDS: IPRATROPIUM NEB FS 0.5 MG/2.5 ML AMPUL.NEB NEB SCH ×4 (01:13→20:06)
[2020-02-09] MEDS: hydrALAZINE HCL 50 MG TABLET GT SCH ×3 (05:51→20:39)
[2020-02-09] MEDS: METOCLOPRAMIDE HCL 10 MG/10 ML UDC GT SCH ×3 (05:51→20:40)
[2020-02-09] MEDS: CLONIDINE 0.3 MG TABLET GT SCH ×3 (05:51→20:39)
[2020-02-09] MEDS: LABETALOL HCL 300 MG TABLET GT SCH ×3 (05:52→20:41)
[2020-02-09 07:02] LABS: BASOPHILS % (AUTO) 0.3 % (0.0-2.0); EOSINOPHILS % (AUTO) 10.8 % (0.0-6.0); HEMATOCRIT 21 % (39-51); LYMPHOCYTES # (AUTO) 0.8 /CMM (0.8-4.8); LYMPHOCYTES % (AUTO) 5.6 % (20.0-44.0); MEAN CORPUSCULAR HGB CONC 33 g/dl (31.0-36.0); MEAN CORPUSCULAR VOLUME 90 fL (80-96); MONOCYTES # (AUTO) 1.5 /CMM (0.1-1.30); MONOCYTES % (AUTO) 10.7 % (2.0-12.0); NEUTROPHILS # (AUTO) 10.2 /CMM (1.8-8.9); NEUTROPHILS % (AUTO) 72.6 % (43.0-81.0); PLATELET COUNT (AUTO) 173 /CMM (150-450); RED BLOOD CELL COUNT(AUTO) 2.38 MIL/uL (4.5-6.0); WHITE BLOOD COUNT (AUTO) 14.1 K/uL (4.3-11.0)
[2020-02-09 07:44] LABS: CALCIUM, SERUM 9.5 mg/dL (8.5-10.1); CREATININE 6.7 mg/dL (0.6-1.3); MAGNESIUM 3.6 mg/dL (1.8-2.4); PHOSPHORUS 4.3 mg/dL (2.5-4.9); POTASSIUM 3.8 mmol/L (3.5-5.1)
[2020-02-09 07:47] LABS: IRON, SERUM 23 ug/dl (50-175); TOTAL IRON BINDING CAPACITY 201 ug/dl (250-450)
[2020-02-09] MEDS: ISOSORBIDE DINITRATE (20MG) 20 MG TABLET GT SCH ×3 (09:00→17:30)
[2020-02-09] MEDS: CHLORHEXIDINE GLUCONATE 15 ML UDC MM SCH (09:00)
[2020-02-09] MEDS: DOXAZOSIN MESYLATE (4 MG) 4 MG TABLET GT SCH ×2 (09:00→20:39)
[2020-02-09] MEDS: LORATADINE 10 MG TABLET GT SCH (09:00)
[2020-02-09] MEDS: LEVETIRACETAM SOL (5 ML) 100 MG/ML UDC GT SCH ×2 (09:00→20:40)
[2020-02-09] MEDS: SITAGLIPTIN PHOSPHATE 100 MG TABLET GT SCH (09:00)
[2020-02-09] MEDS: MINOXIDIL (2.5MG) 2.5 MG TABLET GT SCH ×2 (09:00→17:30)
[2020-02-09] MEDS: BASAGLAR KWIKPEN SQ SCH ×2 (09:00→21:36)
[2020-02-09] MEDS: Z GUARD REMEDY 4 OZ OINT TP SCH ×2 (09:00→20:41)
[2020-02-09] MEDS: VIT B CMPLX 3/FA/VIT C/BIOTIN 1 TAB TABLET GT SCH (09:00)
[2020-02-09] MEDS: BACI/NEOM/POLY B OINT PKT 1 UDPKT PACKET TP SCH (09:00)
[2020-02-09] MEDS: AMLODIPINE BESYLATE 10 MG TABLET GT SCH (09:00)
[2020-02-09] MEDS: FAMOTIDINE (20 MG) 20 MG TABLET GT SCH (09:00)
[2020-02-09] MEDS: MINERAL OIL/PETROL OINT 396 GM JAR TP SCH ×2 (09:00→20:41)
[2020-02-09] MEDS: DOCUSATE SODIUM LIQ 100 MG/10 ML UDC GT SCH ×2 (09:00→20:39)
[2020-02-09] MEDS: LACTOBACILLUS RHAMNOSUS GG 1 EACH CAP.SPRINK GT SCH ×2 (09:00→17:29)
[2020-02-09] MEDS: FERROUS SULFATE UDC 300 MG/5 ML UDC GT SCH (09:00)
[2020-02-09] MEDS: ACETAMINOPHEN 650 MG/20 ML UDC- SA PATIENTS-PAIN ONLY GT SCH (10:40)
[2020-02-10 01:35] VITALS: BP 125/70
[2020-02-10] MEDS: ALBUTEROL FS 2.5 MG/3 ML VIAL.NEB NEB SCH ×3 (01:35→13:24)
[2020-02-10] MEDS: IPRATROPIUM NEB FS 0.5 MG/2.5 ML AMPUL.NEB NEB SCH ×3 (01:35→13:24)
[2020-02-10] MEDS: hydrALAZINE HCL 50 MG TABLET GT SCH ×2 (05:31→12:59)
[2020-02-10] MEDS: CLONIDINE 0.3 MG TABLET GT SCH ×2 (05:33→13:00)
[2020-02-10] MEDS: METOCLOPRAMIDE HCL 10 MG/10 ML UDC GT SCH ×2 (05:34→13:00)
[2020-02-10] MEDS: BLOOD SUGAR DIAGNOSTIC 1 EACH STRIP IN SCH ×2 (05:36→12:58)
[2020-02-10] MEDS: LABETALOL HCL 300 MG TABLET GT SCH ×2 (05:36→13:01)
[2020-02-10 05:45] VITALS: BP 135/73
[2020-02-10] MEDS: INSULIN REGULAR, HUMAN 100 UNIT/ML 3 ML VIAL SQ PRN ×2 (06:39→13:03)
[2020-02-10] MEDS: NEPRO 1,000 ML BOTTLE GT PRN (07:14)
[2020-02-10 07:41] VITALS: BP 126/62
[2020-02-10 08:24] LABS: BASOPHILS # (AUTO) 0.2 /CMM (0.0-0.2); BASOPHILS % (AUTO) 1.1 % (0.0-2.0); EOSINOPHILS % (AUTO) 10.5 % (0.0-6.0); HEMATOCRIT 23 % (39-51); HEMOGLOBIN 7.5 g/dL (13.5-17.5); LYMPHOCYTES # (AUTO) 0.6 /CMM (0.8-4.8); LYMPHOCYTES % (AUTO) 3.7 % (20.0-44.0); MEAN CORPUSCULAR HGB CONC 33 g/dl (31.0-36.0); MEAN CORPUSCULAR VOLUME 89 fL (80-96); MONOCYTES # (AUTO) 1.4 /CMM (0.1-1.30); MONOCYTES % (AUTO) 9.7 % (2.0-12.0); NEUTROPHILS # (AUTO) 11.2 /CMM (1.8-8.9); PLATELET COUNT (AUTO) 177 /CMM (150-450); RED BLOOD CELL COUNT(AUTO) 2.57 MIL/uL (4.5-6.0)
[2020-02-10 08:58] LABS: CALCIUM, SERUM 9.3 mg/dL (8.5-10.1); CREATININE 7.4 mg/dL (0.6-1.3); MAGNESIUM 3.6 mg/dL (1.8-2.4); PHOSPHORUS 4.4 mg/dL (2.5-4.9); POTASSIUM 4.2 mmol/L (3.5-5.1)
[2020-02-10 09:00] VITALS: BP 134/60
[2020-02-10] MEDS: SITAGLIPTIN PHOSPHATE 100 MG TABLET GT SCH (09:56)
[2020-02-10] MEDS: DOXAZOSIN MESYLATE (4 MG) 4 MG TABLET GT SCH (09:56)
[2020-02-10] MEDS: LACTOBACILLUS RHAMNOSUS GG 1 EACH CAP.SPRINK GT SCH (09:56)
[2020-02-10] MEDS: LORATADINE 10 MG TABLET GT SCH (09:56)
[2020-02-10] MEDS: DOCUSATE SODIUM LIQ 100 MG/10 ML UDC GT SCH (09:56)
[2020-02-10] MEDS: FERROUS SULFATE UDC 300 MG/5 ML UDC GT SCH (09:56)
[2020-02-10] MEDS: VIT B CMPLX 3/FA/VIT C/BIOTIN 1 TAB TABLET GT SCH (09:57)
[2020-02-10] MEDS: LEVETIRACETAM SOL (5 ML) 100 MG/ML UDC GT SCH (09:57)
[2020-02-10] MEDS: MINOXIDIL (2.5MG) 2.5 MG TABLET GT SCH (09:57)
[2020-02-10] MEDS: ACETAMINOPHEN 650 MG/20 ML UDC- SA PATIENTS-PAIN ONLY GT SCH (09:57)
[2020-02-10] MEDS: CHLORHEXIDINE GLUCONATE 15 ML UDC MM SCH (09:57)
[2020-02-10] MEDS: ISOSORBIDE DINITRATE (20MG) 20 MG TABLET GT SCH ×2 (09:57→13:00)
[2020-02-10] MEDS: AMLODIPINE BESYLATE 10 MG TABLET GT SCH (09:57)
[2020-02-10] MEDS: FAMOTIDINE (20 MG) 20 MG TABLET GT SCH (09:57)
[2020-02-10] MEDS: BASAGLAR KWIKPEN SQ SCH (09:58)
[2020-02-10] MEDS: Z GUARD REMEDY 4 OZ OINT TP SCH (09:58)
[2020-02-10] MEDS: MINERAL OIL/PETROL OINT 396 GM JAR TP SCH (09:58)
[2020-02-10] MEDS: HYDROGEN PEROXIDE 480 ML BOTTLE TP PRN (12:01)
[2020-02-10 13:00] VITALS: BP 131/61
[2020-02-10 13:01] VITALS: BP 131/61
[2020-02-10 15:46] LABS: ABG BASE EXCESS -2.4 mmol/L; ABG OXYGEN SATURATION 89.4 % (92.0-98.5); ABG PCO2 35.9 mmHg (35.0-45.0); ABG PH 7.404 (7.350-7.450); AaDO2 258.1 mmHg; COHb 0.6 % (0.5-1.5); MetHb 0.5 % (0.0-1.5); O2Hb 88.4 % (94.0-97.0); SITE, ABG Left Radial
[2020-02-10 16:29] LABS: BASOPHILS # (AUTO) 0.1 /CMM (0.0-0.2); BASOPHILS % (AUTO) 0.7 % (0.0-2.0); EOSINOPHILS % (AUTO) 4.6 % (0.0-6.0); HEMATOCRIT 22 % (39-51); HEMOGLOBIN 7.2 g/dL (13.5-17.5); LYMPHOCYTES # (AUTO) 0.5 /CMM (0.8-4.8); LYMPHOCYTES % (AUTO) 4.4 % (20.0-44.0); MEAN CORPUSCULAR HGB CONC 33 g/dl (31.0-36.0); MEAN CORPUSCULAR VOLUME 89 fL (80-96); MONOCYTES % (AUTO) 8.6 % (2.0-12.0); NEUTROPHILS # (AUTO) 9.5 /CMM (1.8-8.9); NEUTROPHILS % (AUTO) 81.7 % (43.0-81.0); PLATELET COUNT (AUTO) 167 /CMM (150-450); RED BLOOD CELL COUNT(AUTO) 2.48 MIL/uL (4.5-6.0); WHITE BLOOD COUNT (AUTO) 11.6 K/uL (4.3-11.0)
[2020-02-10 16:56] LABS: CALCIUM, SERUM 9.1 mg/dL (8.5-10.1); POTASSIUM 4.4 mmol/L (3.5-5.1)
[2020-02-10 17:00] LABS: CREATININE 7.7 mg/dL (0.6-1.3)
[2020-02-10] MEDS ORDERED: EPOE1000 SQ (17:31)
[2020-02-10] MEDS ORDERED: INSU100I26 SQ (17:31)
[2020-02-10] MEDS ORDERED: NEOM15OI3 TP (17:31)
[2020-02-10] MEDS ORDERED: ONDA4TAB5 GT (17:31)
[2020-02-10] MEDS ORDERED: HYDROGEN PEROXIDE 480 ML BOTTLE TP SCH (21:00)
[2020-02-10] MEDS ORDERED: NEOMY SULF/BACITRAC ZN/POLY 15 GM TUBE TP SCH (21:00)
[2020-02-11 06:50] LABS: BASOPHILS # (AUTO) 0.1 /CMM (0.0-0.2); BASOPHILS % (AUTO) 0.8 % (0.0-2.0); EOSINOPHILS % (AUTO) 3.1 % (0.0-6.0); HEMATOCRIT 23 % (39-51); HEMOGLOBIN 7.5 g/dL (13.5-17.5); LYMPHOCYTES # (AUTO) 0.4 /CMM (0.8-4.8); LYMPHOCYTES % (AUTO) 3.2 % (20.0-44.0); MEAN CORPUSCULAR HGB CONC 33 g/dl (31.0-36.0); MEAN CORPUSCULAR VOLUME 89 fL (80-96); MONOCYTES # (AUTO) 1.1 /CMM (0.1-1.30); MONOCYTES % (AUTO) 7.9 % (2.0-12.0); NEUTROPHILS # (AUTO) 11.4 /CMM (1.8-8.9); PLATELET COUNT (AUTO) 189 /CMM (150-450); RED BLOOD CELL COUNT(AUTO) 2.57 MIL/uL (4.5-6.0); WHITE BLOOD COUNT (AUTO) 13.5 K/uL (4.3-11.0)
[2020-02-11 07:15] LABS: CALCIUM, SERUM 9.4 mg/dL (8.5-10.1); MAGNESIUM 3.9 mg/dL (1.8-2.4); PHOSPHORUS 4.5 mg/dL (2.5-4.9); POTASSIUM 4.3 mmol/L (3.5-5.1)
[2020-02-11 07:17] LABS: CREATININE 8.1 mg/dL (0.6-1.3)
[2020-09-22] MEDS ORDERED: TUBERCULIN,PURIF.PROT.DERIV. 5 TU/0.1 ML VIAL ID SCH (09:00)
== END 2020-02-10 17:00 | disposition other institution (70) | DRG 130 ==
LOC: SA 01-25 10:47
PROVIDERS: ADMIT Internal Medicine Nephrology; ATTEND Internal Medicine Nephrology
PROC: 5A1955Z Respiratory Ventilation, Greater than 96 Consecutive Hours (ICD-10-PCS; principal; 2020-01-25)
PROC: 30233N1 Transfusion of Nonautologous Red Blood Cells into Peripheral Vein, Percutaneous Approach (ICD-10-PCS; 2020-02-09)
DX: J96.21 Acute and chronic respiratory failure with hypoxia (principal); N17.0 Acute kidney failure with tubular necrosis; G93.41 Metabolic encephalopathy; A41.9 Sepsis, unspecified organism; J18.9 Pneumonia, unspecified organism; E44.0 Moderate protein-calorie malnutrition; E11.22 Type 2 diabetes mellitus with diabetic chronic kidney disease; E87.0 Hyperosmolality and hypernatremia; Z99.11 Dependence on respirator [ventilator] status; B37.49 Other urogenital candidiasis; D63.8 Anemia in other chronic diseases classified elsewhere; E11.65 Type 2 diabetes mellitus with hyperglycemia; E11.9 Type 2 diabetes mellitus without complications; E66.01 Morbid (severe) obesity due to excess calories; G40.909 Epilepsy, unspecified, not intractable, without status epilepticus; I12.9 Hypertensive chronic kidney disease with stage 1 through stage 4 chronic kidney disease, or unspecified chronic kidney disease; N18.9 Chronic kidney disease, unspecified; Z74.01 Bed confinement status; Y95 Nosocomial condition; Z93.0 Tracheostomy status; Z93.1 Gastrostomy status; Z87.820 Personal history of traumatic brain injury; Z90.49 Acquired absence of other specified parts of digestive tract; E83.52 Hypercalcemia; L85.3 Xerosis cutis; R21 Rash and other nonspecific skin eruption; L60.3 Nail dystrophy
CPT/HCPCS: 31720; 36415; 36600; 71045-TC; 80048-TC; 80053-TC; 80202-TC; 82232; 82962-TC; 83540-TC; 83735-TC; 84100-TC; 85025-TC; 85652-TC; 86850-TC; 86921-TC; 87081-TC; 94002-TC; 94003-TC; 94760-TC; 94762-TC; 97110-TC; A4623; A6253; A7526; J0692; J1815; J2430; J3370; J7040; J7060; J8597; P9016-BL

== ENCOUNTER 2020-02-10 16:59 | Inpatient (IN) | payer OTHER ==
[~2020-02-10] VITALS: Ht 165.1 cm; Wt 77.7 kg
[~2020-02-10 16:59] MED LIST changes: +CEFE1FRO IV; +FLUC100T8 GT; +RXVAN IV; +VANC750P13 IV
--- NOTE | 2020-02-10 17:15 | NUR ---
Sent from [facility] for bilateral lower lobe infiltrates on cxr. PT HAS TRACH, G-TUBE, AND CANNON IN PLACE. ABLE TO COMMUNICATE BY NODDING AND SHAKING HEAD. UNABLE TO MOVE RIGHT SIDE OF BODY. NO ACUTE DISTRESS NOTED. SKIN WARM, DRY, INTACT. SEEN BY DR CASTELLANO. AWAITING ORDERS.
--- NOTE | 2020-02-10 17:22 | NUR ---
RT NOTES RECEIVED PT ON AC MODE WITH NOTED VENT SETTINGS, ALARMS ON AND AUDIBLE, TRACH PATENT AND SECURE WILL MONITOR CLOSELY.
[2020-02-10] MEDS ORDERED: INSU100I26 SQ (17:31)
[2020-02-10] MEDS ORDERED: EPOE1000 SQ (17:31)
[2020-02-10] MEDS ORDERED: NEOM15OI3 TP (17:31)
[2020-02-10] MEDS ORDERED: ONDA4TAB5 GT (17:31)
--- NOTE | 2020-02-10 17:56 | NUR ---
LAB AT BEDSIDE FOR BLOOD DRAW
--- NOTE | 2020-02-10 18:06 | NUR ---
URINE SENT TO STAT LAB
[2020-02-10 18:18] LABS: APPEARANCE,URINE Turbid (CLEAR); BILIRUBIN,URINE Negative (NEGATIVE); BLOOD, URINE Moderate Ery/uL (NEGATIVE); COLOR,URINE Yellow (YELLOW); KETONES,URINE Negative (NEGATIVE); LEUKOCYTE ESTERASE ,URINE Small (NEGATIVE); NITRITE, URINE Negative (NEGATIVE); PROTEIN,URINE >=300 mg/dl (NEGATIVE); UGLUCOSE 250 MG/DL mg/dL (NEGATIVE); UROBILINOGEN,URINE 0.2 EU/dL (0.2)
[2020-02-10 18:19] LABS: BASOPHILS # (AUTO) 0.1 /CMM (0.0-0.2); BASOPHILS % (AUTO) 1.1 % (0.0-2.0); EOSINOPHILS % (AUTO) 5.3 % (0.0-6.0); HEMATOCRIT 22 % (39-51); HEMOGLOBIN 7.1 g/dL (13.5-17.5); LYMPHOCYTES # (AUTO) 0.5 /CMM (0.8-4.8); LYMPHOCYTES % (AUTO) 4.5 % (20.0-44.0); MEAN CORPUSCULAR HGB CONC 33 g/dl (31.0-36.0); MEAN CORPUSCULAR VOLUME 90 fL (80-96); MONOCYTES # (AUTO) 1.1 /CMM (0.1-1.30); MONOCYTES % (AUTO) 10.1 % (2.0-12.0); NEUTROPHILS # (AUTO) 8.9 /CMM (1.8-8.9); PLATELET COUNT (AUTO) 168 /CMM (150-450); RED BLOOD CELL COUNT(AUTO) 2.41 MIL/uL (4.5-6.0); WHITE BLOOD COUNT (AUTO) 11.2 K/uL (4.3-11.0)
[2020-02-10 18:43] LABS: ALBUMIN 2.7 g/dL (3.4-5.0); BILIRUBIN,DIRECT 0.1 mg/dL (0.0-0.2); BILIRUBIN,TOTAL 0.4 mg/dL (0.2-1.0); CALCIUM, SERUM 9.3 mg/dL (8.5-10.1); POTASSIUM 4.2 mmol/L (3.5-5.1); TOTAL PROTEIN, SERUM 7.6 g/dL (6.4-8.2)
[2020-02-10 18:45] LABS: CREATININE 7.5 mg/dL (0.6-1.3)
[2020-02-10 18:50] LABS: BACTERIA,URINE 2+ /HPF (None Seen); WBC,URINE 21-50 /HPF (0-3)
[2020-02-10 18:51] LABS: SQUAMOUS EPITHELIAL CELL,UR Few /HPF (None Seen); YEAST,URINE Moderate /HPF (None Seen)
[2020-02-10] MEDS ORDERED: VANCOMYCIN 1 GM in IV D5W 250 ML IV ONE (19:00)
[2020-02-10] MEDS ORDERED: PIPERACILLIN /TAZOBACTAM 3.375 G in IV D5W 50 ML IV ONE (19:00)
--- NOTE | 2020-02-10 19:00 | NUR ---
PAGED [facility].
--- NOTE | 2020-02-10 19:06 | NUR ---
PT RESTING COMFORTABLY IN BED. VSS. WILL CONT TO MONITOR.
[2020-02-10] MEDS ORDERED: PIPERACILLIN /TAZOBACTAM 3.375 G VIAL IV ONE (19:08)
[2020-02-10] MEDS ORDERED: VANCOMYCIN 1 GM VIAL ONE (19:08)
--- NOTE | 2020-02-10 19:24 | NUR ---
CALLED RT FOR SUCTIONING.
--- NOTE | 2020-02-10 20:01 | NUR ---
RECIEVED BED 115-2
--- NOTE | 2020-02-10 20:38 | NUR ---
REPORT GIVEN TO RN JONNY FOR 115-2 [facility]
--- NOTE | 2020-02-10 20:57 | NUR ---
[facility]
[2020-02-10 21:16] VITALS: BP 127/73
--- NOTE | 2020-02-10 21:26 | NUR ---
RT NOTE PT RECEIVED TRACHED ON MECHANICAL VENTILATION. PT AWAKE/ALERT. PORTEX [address] AMBU BAG @ BEDSIDE. SX DONE, YELLOW THICK SECRETIONS NOTED. ALARMS ON AND AUDIBLE. CONT. PULSE OX CONNECTED. WILL CONTINUE TO MONITOR. Addendum: 02/10/20 at 2346 by MEGHAN MEHTA RT Amended: Links added.
[2020-02-10] MEDS ORDERED: IV NS 0.9% 1,000 ML IV PRN (21:30)
[2020-02-10] MEDS ORDERED: NA PHOS,M-B/NA PHOS,DI-BA 1 EA ENEMA RC PRN (21:30)
[2020-02-10] MEDS ORDERED: NEPRO VAN 237 ML CAN GT SCH (21:30)
[2020-02-10] MEDS ORDERED: MISCELLANEOUS MED 1 EA EA GT PRN ×3 (21:30→22:30)
[2020-02-10] MEDS ORDERED: DEXTROSE 50%-WATER 50 ML DISP.SYRIN IV PRN ×3 (21:30)
[2020-02-10] MEDS ORDERED: MAGNESIUM HYDROXIDE 30 ML UDC PO PRN (21:30)
[2020-02-10] MEDS ORDERED: MAG HYDROX/AL HYDROX/SIMETH 30 ML UDC PO PRN (21:30)
[2020-02-10] MEDS ORDERED: INSULIN REGULAR, HUMAN 100 UNIT/ML 3 ML VIAL SQ PRN (21:30)
[2020-02-10] MEDS ORDERED: BISACODYL SUPP (10 MG) 10 MG/SUPP.RECT SUPP.RECT RC PRN ×2 (21:30)
[2020-02-10] MEDS ORDERED: Z GUARD REMEDY 2 OZ OINT TP PRN (21:30)
[2020-02-10] MEDS ORDERED: ALBUTEROL FS 2.5 MG/0.5 ML VIAL.NEB IH PRN (21:30)
[2020-02-10] MEDS ORDERED: IPRATROPIUM NEB FS 0.5 MG/2.5 ML AMPUL.NEB IH PRN (21:30)
[2020-02-10] MEDS ORDERED: ONDANSETRON HCL/PF 4 MG/2 ML VIAL IVP PRN (21:30)
[2020-02-10] MEDS ORDERED: ACETAMINOPHEN 325 MG TABLET PO PRN (21:30)
[2020-02-10] MEDS: FLUCONAZOLE (100 MG) 100 MG TABLET PO SCH (22:22)
[2020-02-10] MEDS ORDERED: ONDANSETRON HCL 4 MG/5 ML SOLUTION GT PRN (22:30)
[2020-02-10] MEDS: DOXAZOSIN MESYLATE (4 MG) 4 MG TABLET GT SCH (22:55)
[2020-02-10] MEDS: DOCUSATE SODIUM LIQ 100 MG/10 ML UDC GT SCH (22:55)
[2020-02-10] MEDS: CLONIDINE HCL 0.1 MG TABLET GT SCH (22:56)
[2020-02-10] MEDS: BLOOD SUGAR DIAGNOSTIC 1 EACH STRIP VI SCH (22:56)
[2020-02-10] MEDS: *INSULIN REGULAR(HUMULIN R)HUM 100 UNIT/ML VIAL SQ PRN (23:21)
[2020-02-10] MEDS: NEPRO 1,000 ML BOTTLE GT PRN (23:26)
[2020-02-11] VITALS: BP 132/80
[2020-02-11] MEDS ORDERED: BLOOD SUGAR DIAGNOSTIC 1 EACH STRIP IN SCH ×2
[2020-02-11] MEDS: IPRATROPIUM NEB FS 0.5 MG/2.5 ML AMPUL.NEB IH SCH ×4 (01:16→19:04)
[2020-02-11] MEDS: ALBUTEROL FS 2.5 MG/0.5 ML VIAL.NEB IH SCH ×4 (01:16→19:04)
[2020-02-11] MEDS ORDERED: ALBUTEROL FS 2.5 MG/3 ML VIAL.NEB NEB SCH (01:30)
--- NOTE | 2020-02-11 01:50 | NUR ---
RN NOTE PT NOTED WITH 02 SATURATION 89-90%. PT ALSO NOTED WITH ABDOMINAL DISTENTION AND WITHOUT BOWEL MOVEMENT X 2 DAYS. ACTIVE BOWEL SOUNDS NOTED IN ALL 4 QUADRANTS. TUBE FEEDING HELD FOR NOW. NO GASTRIC RESIDUAL NOTED. ADMINISTERED MILD OF MAGNESIA 30ML VIA GT PRN. WILL MONITOR. Addendum: 02/11/20 at 0633 by JONNY ROGERS RN CHARGE NURSE TOOTIE IRWIN.
[2020-02-11 04:00] VITALS: BP 135/75
[2020-02-11] MEDS: CLONIDINE HCL 0.1 MG TABLET GT SCH ×3 (04:44→20:23)
[2020-02-11] MEDS: METOCLOPRAMIDE HCL 10 MG TABLET GT SCH ×3 (04:44→20:23)
[2020-02-11] MEDS ORDERED: LABETALOL HCL (100MG) 100 MG TABLET ONE (04:48)
[2020-02-11] MEDS ORDERED: LABETALOL HCL 300 MG TABLET GT SCH (05:00)
[2020-02-11] MEDS: LABETALOL HCL (100MG) 100 MG TABLET GT SCH ×3 (05:02→20:24)
--- NOTE | 2020-02-11 05:43 | NUR ---
RN NOTE RT LEBRON ADJUSTED FIO2 TO 50%. WILL CONTINUE TO MONITOR. Addendum: 02/11/20 at 0546 by JONNY ROGERS RN O2 SATURATION 94%.
--- NOTE | 2020-02-11 05:52 | NUR ---
RT NOTE INCREASED FIO2 TO 50% DUE TO LOW SATURATION OF 89-90%. RN JONNY AND CHARGE NURSE TOOTIE AWARE. PT SPO2 IMPROVED TO 94%. ABDOMINAL DISTENTION NOTED T/O SHIFT. CONT. PULSE OX CONNECTED.
--- NOTE | 2020-02-11 06:19 | NUR ---
RN NOTE PT NOTED WITH ONLY 75CC OF URINE OUTPUT (CLEAR, YELLOW URINE) VIA CANNON CATHETER. NOTIFIED DR. MCWILLIAMS.
--- NOTE | 2020-02-11 07:07 | NUR ---
RN CLOSING NOTE PT SATURATION 94%. TOLERATING MECHANICAL SETTINGS WELL. RESPIRATIONS EVEN AND UNLABORED. ENDORSED TO MORNING RN FOR CONTINUITY OF CARE.
--- NOTE | 2020-02-11 07:15 | NUR ---
EDUCATION ADMINISTRATIVE ASSISTANT NOTES OPENING PATIENT IN BED AWAKE A/OX2-3 NON VERBAL. SUCTIONED THE TRACH FOR BETTER BREATHING. SINUS RHYTHM 79. HAS A CANNON AND GTUBE (45ML/H). RIGHT FOREARM NO18 NS RUNNING AT 75ML/HR. NO ISOLATION. BED AT THE LOWEST POSITION LOCKED, CALL LIGHT WITHIN REACH. WILL CONTINUE TO MONITOR THE PATIENT.
[2020-02-11] MEDS: BLOOD SUGAR DIAGNOSTIC 1 EACH STRIP VI SCH ×4 (07:38→21:36)
--- NOTE | 2020-02-11 07:45 | NUR ---
PASTRY COOK APPRENTICE NOTE CALLED PHARMACY TO DELIVER INSULIN.
[2020-02-11 08:00] VITALS: BP 127/59
--- NOTE | 2020-02-11 08:12 | NUR ---
NETWORK CONTROL OPERATOR NOTES NOTED TEA COLOR FLUID 20CC RESIDUAL FROM GTUBE SITE.
[2020-02-11] MEDS ORDERED: FEE PK DOSING 1 MIN EA MC ONE (08:38)
[2020-02-11] MEDS ORDERED: AMLODIPINE BESYLATE 10 MG TABLET GT SCH (09:00)
[2020-02-11] MEDS: INSULIN REGULAR, HUMAN 100 UNIT/ML 3 ML VIAL SQ PRN ×2 (09:10→12:43)
[2020-02-11] MEDS: VIT B CMPLX 3/FA/VIT C/BIOTIN 1 TAB TABLET GT SCH (10:16)
[2020-02-11] MEDS: FAMOTIDINE (20 MG) 20 MG TABLET GT SCH (10:17)
[2020-02-11] MEDS: MINOXIDIL (2.5MG) 2.5 MG TABLET GT SCH ×2 (10:17→16:59)
[2020-02-11] MEDS: AMLODIPINE BESYLATE 10 MG TABLET GT SCH (10:17)
[2020-02-11] MEDS: ISOSORBIDE DINITRATE (20MG) 20 MG TABLET GT SCH ×3 (10:18→16:59)
[2020-02-11] MEDS: LORATADINE 10 MG TABLET GT SCH (10:18)
[2020-02-11] MEDS: DOXAZOSIN MESYLATE (4 MG) 4 MG TABLET GT SCH ×2 (10:19→20:22)
[2020-02-11] MEDS: LACTOBACILLUS RHAMNOSUS GG 1 EACH CAP.SPRINK GT SCH ×2 (10:19→16:59)
[2020-02-11] MEDS: DOCUSATE SODIUM LIQ 100 MG/10 ML UDC GT SCH ×2 (10:20→20:23)
[2020-02-11] MEDS: FERROUS SULFATE UDC 300 MG/5 ML UDC GT SCH (10:20)
[2020-02-11] MEDS: NEOMY SULF/BACITRAC ZN/POLY 15 GM TUBE TP SCH ×2 (10:21→20:26)
[2020-02-11] MEDS: CHLORHEXIDINE GLUCONATE 15 ML UDC MM SCH (10:21)
[2020-02-11] MEDS: Z GUARD REMEDY 2 OZ OINT TP SCH ×2 (10:29→20:26)
[2020-02-11] MEDS: PIPERACILLIN /TAZOBACTAM 2.25 G in IV D5W 50 ML IV SCH ×3 (10:39→20:22)
[2020-02-11] MEDS: IV NS 0.9% 1,000 ML IV PRN ×2 (10:49→23:30)
[2020-02-11 12:00] VITALS: BP 128/57
[2020-02-11] MEDS ORDERED: EPOETIN ALFA (20,000 UNIT) 20,000 UNIT/ML VIAL SQ ONE (12:00)
--- NOTE | 2020-02-11 13:59 | NUR ---
ORGANISATIONAL PSYCHOLOGIST NOTES URINE SAMPLE COLLECTED AND INFORMED LAB FOR CEMENT TESTER ASSISTANT.
--- NOTE | 2020-02-11 15:39 | NUR ---
HOSPITAL SOCIAL WORKER NOTES CHANGE OF CONDITION NOTED 20 CC BROWNISH COLOR FLUID WITH SOME CLOTHS ON GT SIDE RESIDUAL. CONTACTED CHANGE NUMBER OPERATOR DOREEN Napoles. PER CHANGE NUMBER OPERATOR DOREEN HOLD THE FEEDING, CONTINUE MEDS,CONT IV FLUIDS, ORDER CT W/O CONTRAST, MORPHINE 2MG IVP Q4 HOURS PRN.
[2020-02-11 16:00] VITALS: BP 124/64
[2020-02-11] MEDS ORDERED: MORPHINE SULFATE INJ 2 MG/ML DISP.SYRIN IVP PRN (16:00)
--- NOTE | 2020-02-11 16:58 | NUR ---
TALENT COORDINATOR NOTES CALLED LAB FOR SPUTUM SAMPLE NUTRITION AIDE.
--- NOTE | 2020-02-11 17:54 | NUR ---
AVIATION ALL SOURCE INTELLIGENCE NOTES PT GLUCOSE LEVEL 154 MG/DL. NO INSULIN ADMINISTRATED, PATIENT IS NPO AND FEEDING IS HELD.
[2020-02-11 19:01] LABS: APPEARANCE,URINE SL CLOUDY (CLEAR); BILIRUBIN,URINE SMALL (NEGATIVE); BLOOD, URINE MODERATE Ery/uL (NEGATIVE); COLOR,URINE YELLOW (YELLOW); KETONES,URINE TRACE (NEGATIVE); LEUKOCYTE ESTERASE ,URINE MODERATE (NEGATIVE); NITRITE, URINE NEGATIVE (NEGATIVE); PH,URINE 5.5 (5.0-8.0); PROTEIN,URINE >=300 mg/dl (NEGATIVE); UGLUCOSE 500 MG/DL mg/dL (NEGATIVE); UROBILINOGEN,URINE 0.2 EU/dL (0.2)
[2020-02-11 19:12] LABS: BACTERIA,URINE 1+ /HPF (None Seen); SQUAMOUS EPITHELIAL CELL,UR Few /HPF (None Seen); WBC,URINE TOO NUMEROUS TO COUN /HPF (0-3); YEAST,URINE Moderate /HPF (None Seen)
--- NOTE | 2020-02-11 19:15 | NUR ---
RN OPENING NOTES RECEIVED MR NAVARRO ON BED AWAKE NON VERBAL ON VENT SETTING PER MD WITH O2 SAT 93% RR 32 CHARGE NURSE AWARE, WITH IV OF G22 R ARM CONNECTED TO 1L NS @ 100ML/HR INFUSING WELL, WITH G TUBE ON PLACE PATENT VENTING OF GTUBE DONE, ON TELE MONITOR WITH READING SR 70'S SAFETY MEASURE MAINTAINED BED ON LOWEST POSITION SIDE RAILS UP X3 CALL LIGHT WITHIN REACH WILL CONT TO MONITOR THE PT
--- NOTE | 2020-02-11 19:58 | NUR ---
FLARE STITCHER NOTES PATIENT IN BED AWAKE, DESATURATING AND COMPLAINING OF NOT ABLE TO BREATH WELL. CALLED RT. SUCTION THE TRACH WELL. HE WAS COMFORTABLE AFTER INTERVENTIONS. ALL NEEDS ATTENDED ALL MEDICATIONS ADMINISTRATED. CALL LIGHT WITHIN REACH, BED AT THE LOWEST POSITION LOCKED. ENDORSED TO SPORTS MANAGER NURSE FOR SALLY.
[2020-02-11 20:00] VITALS: BP 129/72
[2020-02-11] MEDS: FLUCONAZOLE (100 MG) 100 MG TABLET PO SCH (21:27)
[2020-02-11] MEDS: INSULIN GLARGINE, 100 UNIT/ML CARTRIDGE SQ SCH (21:35)
[2020-02-11] MEDS: *INSULIN REGULAR(HUMULIN R)HUM 100 UNIT/ML VIAL SQ PRN (21:37)
[2020-02-12] VITALS (18 sets, daily range): BP systolic 124–142; BP diastolic 59–76
[2020-02-12] MEDS: ALBUTEROL FS 2.5 MG/0.5 ML VIAL.NEB IH SCH ×4 (00:42→19:36)
[2020-02-12] MEDS: IPRATROPIUM NEB FS 0.5 MG/2.5 ML AMPUL.NEB IH SCH ×4 (00:42→19:36)
[2020-02-12] MEDS: PIPERACILLIN /TAZOBACTAM 2.25 G in IV D5W 50 ML IV SCH ×4 (03:03→21:16)
[2020-02-12] MEDS: CLONIDINE HCL 0.1 MG TABLET GT SCH ×3 (04:35→21:15)
[2020-02-12] MEDS: LABETALOL HCL (100MG) 100 MG TABLET GT SCH ×3 (04:36→21:14)
[2020-02-12] MEDS: METOCLOPRAMIDE HCL 10 MG TABLET GT SCH ×3 (04:36→21:13)
[2020-02-12 06:50] LABS: BASOPHILS # (AUTO) 0.1 /CMM (0.0-0.2); BASOPHILS % (AUTO) 0.9 % (0.0-2.0); EOSINOPHILS % (AUTO) 4.6 % (0.0-6.0); HEMATOCRIT 22 % (39-51); HEMOGLOBIN 7.1 g/dL (13.5-17.5); LYMPHOCYTES # (AUTO) 0.6 /CMM (0.8-4.8); LYMPHOCYTES % (AUTO) 4.7 % (20.0-44.0); MEAN CORPUSCULAR HGB CONC 33 g/dl (31.0-36.0); MEAN CORPUSCULAR VOLUME 89 fL (80-96); MONOCYTES % (AUTO) 8.4 % (2.0-12.0); NEUTROPHILS # (AUTO) 9.8 /CMM (1.8-8.9); NEUTROPHILS % (AUTO) 81.4 % (43.0-81.0); PLATELET COUNT (AUTO) 188 /CMM (150-450); RED BLOOD CELL COUNT(AUTO) 2.45 MIL/uL (4.5-6.0)
[2020-02-12] MEDS: BLOOD SUGAR DIAGNOSTIC 1 EACH STRIP VI SCH ×3 (06:51→17:23)
[2020-02-12] MEDS: INSULIN REGULAR, HUMAN 100 UNIT/ML 3 ML VIAL SQ PRN (06:52)
[2020-02-12 07:03] LABS: CALCIUM, SERUM 8.5 mg/dL (8.5-10.1); MAGNESIUM 3.6 mg/dL (1.8-2.4); PHOSPHORUS 3.9 mg/dL (2.5-4.9); POTASSIUM 4.4 mmol/L (3.5-5.1)
[2020-02-12 07:07] LABS: CREATININE 8.3 mg/dL (0.6-1.3)
--- NOTE | 2020-02-12 07:31 | NUR ---
RN CLOSING NOTES PT ON SAME CONDITION NO SIGNIFICANT CHANGES ON CONDITION NOTED STILL ON VENT SETTING PER MD,O2 SAT @ 90-94% ON TELE MONITOR SR 70"S WITH IVF 1L NS RUNNING @ 100ML/HR, ALL NEEDS ATTENDED SAFETY MEASURES MAINTAINED ENDORSE TO AM SHIFT NURSE
--- NOTE | 2020-02-12 07:43 | NUR ---
HEMOTHERAPIST OPENING NOTE PATIENT IN BED RESTING COMFORTABLY. PATIENT IN NO ACUTE DISTRESS. NO SOB NOTED. PATIENT BREATHING IS EVEN AND UNLABORED. PATIENT ON VENT, TOLERATING VENT SETTINGS WELL. PATIENT ON CARDIAC MONITORING READING SINUS RHYTHM HR 73. SAFETY PRECAUTIONS IN PLACE. HOB IS ELEVATED. BED ALARM IS ON. PATIENT BED IS LOCKED AND IN LOWEST POSITION. CALL LIGHT WITHIN REACH. WILL CONTINUE TO MONITOR.
--- NOTE | 2020-02-12 08:30 | NUR ---
DIVISION SALES MANAGER NOTE PATIENT BUN 139 AND CRE 8.3, NELL NUNEZ MADE AWARE.
--- NOTE | 2020-02-12 08:51 | NUR ---
EMT PARAMEDIC NOTE PATIENT BLOOD SUGAR 112. HELD INSULIN LANTUS 1000 DOSE. PATIENT REMAINS NPO EXCEPTS MEDS AT THIS TIME.
[2020-02-12] MEDS: FERROUS SULFATE UDC 300 MG/5 ML UDC GT SCH (08:59)
[2020-02-12] MEDS: CHLORHEXIDINE GLUCONATE 15 ML UDC MM SCH (08:59)
[2020-02-12] MEDS: LACTOBACILLUS RHAMNOSUS GG 1 EACH CAP.SPRINK GT SCH ×2 (09:00→17:00)
[2020-02-12] MEDS: DOCUSATE SODIUM LIQ 100 MG/10 ML UDC GT SCH ×2 (09:00→21:15)
[2020-02-12] MEDS: VIT B CMPLX 3/FA/VIT C/BIOTIN 1 TAB TABLET GT SCH (09:00)
[2020-02-12] MEDS: MINOXIDIL (2.5MG) 2.5 MG TABLET GT SCH ×2 (09:00→17:00)
[2020-02-12] MEDS: FAMOTIDINE (20 MG) 20 MG TABLET GT SCH (09:00)
[2020-02-12] MEDS: ISOSORBIDE DINITRATE (20MG) 20 MG TABLET GT SCH ×3 (09:01→17:00)
[2020-02-12] MEDS: LORATADINE 10 MG TABLET GT SCH (09:01)
[2020-02-12] MEDS: DOXAZOSIN MESYLATE (4 MG) 4 MG TABLET GT SCH ×2 (09:02→21:16)
[2020-02-12] MEDS: AMLODIPINE BESYLATE 10 MG TABLET GT SCH (09:02)
[2020-02-12] MEDS: INSULIN GLARGINE, 100 UNIT/ML CARTRIDGE SQ SCH ×2 (09:03→22:00)
[2020-02-12] MEDS: Z GUARD REMEDY 2 OZ OINT TP SCH ×2 (09:03→21:18)
[2020-02-12] MEDS: NEOMY SULF/BACITRAC ZN/POLY 15 GM TUBE TP SCH ×2 (09:03→21:18)
[2020-02-12] MEDS ORDERED: IPRATROPIUM NEB FS 0.5 MG/2.5 ML AMPUL.NEB ONE (09:35)
[2020-02-12] MEDS ORDERED: ALBUTEROL FS 2.5 MG/3 ML VIAL.NEB ONE (09:35)
[2020-02-12] MEDS ORDERED: BUMETANIDE INJ 0.25 MG/ML VIAL IV ONE (10:30)
[2020-02-12] MEDS ORDERED: BUMETANIDE INJ 2 MG in IV NS 0.9% 32 ML IV ONE (10:30)
[2020-02-12] MEDS: IV NS 0.9% 1,000 ML IV PRN (11:11)
[2020-02-12 11:20] LABS: ABG BASE EXCESS -4.1 mmol/L; ABG OXYGEN SATURATION 81.2 % (92.0-98.5); ABG PCO2 34.4 mmHg (35.0-45.0); ABG PH 7.391 (7.350-7.450); ABG PO2 45.3 mmHg (75.0-100.0); AaDO2 272.5 mmHg; COHb 0.7 % (0.5-1.5); MetHb 0.5 % (0.0-1.5); O2Hb 80.2 % (94.0-97.0); SITE, ABG Left Radial; VENT MODE, BG AC 16 500 +5 50%
--- NOTE | 2020-02-12 11:27 | NUR ---
INSPECTOR GLASS OR MIRROR NOTE PATIENT BLOOD SUGAR 116. NO INSULIN COVERAGE GIVEN PER PROTOCOL.
--- NOTE | 2020-02-12 12:10 | NUR ---
ICU/MEDICAL AFFAIRS LEADER TELE1 PT ARRIVED VIA BED, ACCOMPANIED BY PRIMARY NURSE ESTELLA, BEDSIDE REPORT GIVEN. PT ALERT OPEN EYES, ABLE TO GESTURE NEEDS, NO ACUTE DISTRESS NOTED, NO GRIMACING. PT PLACED ON NEW VENT RATE SETTINGS: AC 16, TV 500, FIO2 70% AND PEEP 5. PT TRANSFERRED TO ICU D/T RESULT OF ABG: PO2 45.5 AND O2 SAT 81%. IV SITES FLUSHED PATENT, NO S/S OF INFECTION, PT ON NPO STATUS D/T REPORTED COFFEE GROUNDS GASTRIC RESIDUAL, PER REPORT. PT ENDORSED TO CONTINUE CARE, CL WITHIN REACHED AND SAFETY MAINTAINED. ON GOING MONITORING.
--- NOTE | 2020-02-12 12:15 | NUR ---
EQUITY SALES ASSISTANTMETAL FABRICATOR WELDER NOTE PATIENT IN BED RESTING COMFORTABLY. PATIENT CURRENTLY ON VENT, DESATURATING TO 86-88 SPO2 DESPITE 48% FIO2. STAT ABGS WERE RESULTED AND INFORMED TO Manuel CAMEJO NP. PER NELL TRANSFER TO ICU FOR HIGHER LEVEL CARE. PATIENT IN NO ACUTE DISTRESS. NO SOB NOTED. PATIENT ON CARDIAC MONITORING READING SINUS RHYTHM HR 77. PATIENT CANNON CATHETER HANGING TO GRAVITY. PATIENT BED ALARM IS ON. IV PATENT AND INTACT. GTUBE PATENT AND INTACT. PATIENT WAS TURNED AND REPOSITIONED Q2H. WOUND CARE PROVIDED ORDERED. ICU REPORT GIVEN BEDSIDE TO CIRCULATION WORKER. ENDORSED TO FOLLOW UP WITH ABDOMEN CT. ENDORSE CARE TO CIRCULATION WORKER FOR SALLY.
--- NOTE | 2020-02-12 13:00 | NUR ---
ICU/RN NOON MEDS - HELD PT'S SCHEDULED MEDS FOR 1300 HELD D/T NPO STATUS.
--- NOTE | 2020-02-12 13:24 | NUR ---
ICU/RN CONSENT - DIALYSIS CATHETER PLACEMENT AND TREATMENT CONSENT OBTAINED FROM PT'S UNCLE UNCLE (JAYDEN KING) FOR DIALYSIS CATHETER PLACEMENT AND TREATMENT. CONSENTS PLACED ON PT'S CHART, CHARGE NURSE AWARE.
--- NOTE | 2020-02-12 13:36 | NUR ---
ICU/RN VENT CHANGES NOTED ORDER VENT CHANGES: FIOS FROM 70 TO 60 AND PEEP FROM 5 TO 8. MONITORING CONTINUED.
[2020-02-12] MEDS ORDERED: VANCOMYCIN 500 MG in IV D5W 100 ML IV PRN (14:00)
--- NOTE | 2020-02-12 15:30 | NUR ---
ICU/SCARRER CATHETER PLACEMENT DR. AYALA @ [facility] PLACING DIALYSIS CATHETER. MONITORING CONTINUED. Addendum: 02/12/20 at 1557 by DARSHAN MANN RN ADDENDUM: DIALYSIS CATHETER PLACED ON LEFT FEMORAL.
--- NOTE | 2020-02-12 18:25 | NUR ---
ICU/RN FOLLOW-UP DR. MARTINEZ SPOKE TO DR. MARTINEZ TO FOLLOW-UP IF PT NEEDS DIALYSIS TODAY, PER MD SMITH, AND THAT HE WILL ORDER TREATMENT TOMORROW. CHARGE NURSE AWARE.
[2020-02-12] MEDS ORDERED: DEXTROSE 50%-WATER 50 ML DISP.SYRIN IV PRN (18:30)
--- NOTE | 2020-02-12 18:30 | NUR ---
ICU/RN PM CARE PM CARE PROVIDED, NO ACUTE CHANGE OF CONDITION. PT REFUSED TO HAVE DVT SLEEVE PLACE BACK. CL WITHIN REACHED AND SAFETY MAINTAINED.
--- NOTE | 2020-02-12 19:24 | NUR ---
ICU/RN AM SHIFT CLOSING NOTES ALL NEEDS MET. NO ACUTE CHANGE OF CONDITION NOTED SINCE PT WAS TRANSFERRED AT AROUND NOON TIME. PT ENDORSED TO PM NURSE TO CONTINUE CARE.
--- NOTE | 2020-02-12 19:57 | NUR ---
BAND MACHINE OPERATOR NOTE PT IN BED AWAKE. RESPONDS WITH FACIAL GESTURES. ON VENT/TRACH TOLERATING THE SETTINGS VERY WELL. NO DISTRESS OR DISCOMFORT NOTED. NO S/S OF PAIN NOTED. ON TELE MONITOR SR HR 78. GT CLAMPED. F/C INTACT AND PATENT DRAINING CLOUDY WITH SEDIMENTS URINE. PT REMAIN NPO STATUS. IVF NS INFUSING AT 100 ML/HR RFA #18 G, NO S/S OF INFILTRATION NOTED. RT WRIST #22 G SL INTACT AND PATENT. ALL NEEDS ATTENDED. REPOSITION HIM FOR SKIN MANAGEMENT. SIDE RAILS UP X 3 AND CALL LIGHT WITHIN REACH. CONTINUE TO MONITOR HIM.
[2020-02-12] MEDS ORDERED: VANCOMYCIN 0.75 GM in IV D5W 250 ML IV SCH (21:00)
[2020-02-12] MEDS: FLUCONAZOLE (100 MG) 100 MG TABLET PO SCH (21:15)
[2020-02-12] MEDS: BLOOD SUGAR DIAGNOSTIC 1 EACH STRIP IN SCH (23:02)
[2020-02-13] VITALS (24 sets, daily range): BP systolic 128–158; BP diastolic 57–85
[2020-02-13] MEDS: IPRATROPIUM NEB FS 0.5 MG/2.5 ML AMPUL.NEB IH SCH ×4 (02:11→19:53)
[2020-02-13] MEDS: ALBUTEROL FS 2.5 MG/0.5 ML VIAL.NEB IH SCH ×4 (02:11→19:53)
[2020-02-13] MEDS: IV NS 0.9% 1,000 ML IV PRN ×3 (02:29→23:53)
[2020-02-13] MEDS: PIPERACILLIN /TAZOBACTAM 2.25 G in IV D5W 50 ML IV SCH ×2 (02:31→08:23)
[2020-02-13 04:24] LABS: BASOPHILS # (AUTO) 0.1 /CMM (0.0-0.2); BASOPHILS % (AUTO) 0.8 % (0.0-2.0); EOSINOPHILS % (AUTO) 4.8 % (0.0-6.0); HEMATOCRIT 23 % (39-51); HEMOGLOBIN 7.4 g/dL (13.5-17.5); LYMPHOCYTES # (AUTO) 0.7 /CMM (0.8-4.8); LYMPHOCYTES % (AUTO) 5.4 % (20.0-44.0); MEAN CORPUSCULAR HGB CONC 32 g/dl (31.0-36.0); MEAN CORPUSCULAR VOLUME 90 fL (80-96); MONOCYTES # (AUTO) 1.2 /CMM (0.1-1.30); MONOCYTES % (AUTO) 9.4 % (2.0-12.0); NEUTROPHILS % (AUTO) 79.6 % (43.0-81.0); PLATELET COUNT (AUTO) 208 /CMM (150-450); RED BLOOD CELL COUNT(AUTO) 2.58 MIL/uL (4.5-6.0); WHITE BLOOD COUNT (AUTO) 12.5 K/uL (4.3-11.0)
[2020-02-13 04:56] LABS: CALCIUM, SERUM 8.6 mg/dL (8.5-10.1); MAGNESIUM 3.7 mg/dL (1.8-2.4); PHOSPHORUS 4.1 mg/dL (2.5-4.9); POTASSIUM 4.5 mmol/L (3.5-5.1)
[2020-02-13 04:59] LABS: CREATININE 8.2 mg/dL (0.6-1.3)
[2020-02-13] MEDS ORDERED: CLONIDINE HCL 0.1 MG TABLET ONE (05:20)
[2020-02-13] MEDS ORDERED: LABETALOL HCL (100MG) 100 MG TABLET ONE (05:21)
[2020-02-13] MEDS: METOCLOPRAMIDE HCL 10 MG TABLET GT SCH ×3 (05:22→20:50)
[2020-02-13] MEDS: LABETALOL HCL (100MG) 100 MG TABLET GT SCH ×3 (05:22→20:49)
[2020-02-13] MEDS: CLONIDINE HCL 0.1 MG TABLET GT SCH ×3 (05:22→20:50)
[2020-02-13] MEDS: BLOOD SUGAR DIAGNOSTIC 1 EACH STRIP IN SCH ×3 (05:32→18:20)
--- NOTE | 2020-02-13 06:29 | NUR ---
SYSTEMS ARCHITECTURE ANALYST NOTE NO CHANGE IN CONDITION NOTED. TOLERATING VENT SETTINGS. NO DISTRESS OR DISCOMFORT NOTED. NO S/S OF PAIN. NOTED. SUCTIONED HIM FREQUENTLY. THICK YELLOWISH/GREENISH SECRETIONS SMALL AMOUNT NOTED. ON TELE SR 80. GT REMAINED CLAMPED. F/C INTACT AND PATENT DRAINING CLOUDY YELLOWISH COLOR WITH SEDIMENTS URINE NOTED. REPOSITION HIM Q2H, KEPT HIM DRY AND CLEAN. ALL NEEDS ATTENDED. WILL ENDORSE TO DAY SHIFT NURSE FOR CONTINUE TO CARE.
--- NOTE | 2020-02-13 07:45 | NUR ---
ICU/RN AM SHIFT OPENING NOTES RECEIVED PT AWAKE IN BED, PT ALERT, ABLE TO GESTURE NEEDS. NO ACUTE RESPIRATORY DISTRESS OR CHANGE OF CONDITION NOTED, PT DENIES ANY SYMPTOMS. ON VENTILATOR RATE SETTINGS PRESCRIBED, RESPIRATIONS EVEN & UNLABORED, LUNG SOUNDS DIMINISHED, SATURATING @ 97%, SUCTIONED FOR AIRWAY CLEARANCE. ON TELE SINUS RHYTHM, HR 75. IV SITE PATENT WITH NO S/S OF INFECTION. WITH ON GOING IV INFUSION OF NS @ 100CC/HR, ON NPO STATUS AT THIS TIME. CANNON CATHETER INTACT WITH NOTED MINIMAL CLOUDY YELLOW URINE OUTPUT WITH SEDIMENTS. PT IS SCHEDULED TO HAVE DIALYSIS TODAY, SCHEDULED AM MEDS EXCEPT FOR BP MEDS TO BE GIVEN. CL WITHIN REACHED AND SAFETY MAINTAINED. ON GOING MONITORING.
[2020-02-13] MEDS: DOXAZOSIN MESYLATE (4 MG) 4 MG TABLET GT SCH ×2 (08:21→21:02)
[2020-02-13] MEDS: CHLORHEXIDINE GLUCONATE 15 ML UDC MM SCH (08:22)
[2020-02-13] MEDS: FERROUS SULFATE UDC 300 MG/5 ML UDC GT SCH (08:22)
[2020-02-13] MEDS: LACTOBACILLUS RHAMNOSUS GG 1 EACH CAP.SPRINK GT SCH ×2 (08:22→16:31)
[2020-02-13] MEDS: FAMOTIDINE (20 MG) 20 MG TABLET GT SCH (08:23)
[2020-02-13] MEDS: VIT B CMPLX 3/FA/VIT C/BIOTIN 1 TAB TABLET GT SCH (08:23)
[2020-02-13] MEDS: LORATADINE 10 MG TABLET GT SCH (08:23)
[2020-02-13] MEDS: DOCUSATE SODIUM LIQ 100 MG/10 ML UDC GT SCH ×2 (08:23→20:50)
[2020-02-13] MEDS: AMLODIPINE BESYLATE 10 MG TABLET GT SCH (08:24)
[2020-02-13] MEDS: ISOSORBIDE DINITRATE (20MG) 20 MG TABLET GT SCH ×3 (08:24→16:31)
[2020-02-13] MEDS: MINOXIDIL (2.5MG) 2.5 MG TABLET GT SCH ×2 (08:24→16:31)
[2020-02-13] MEDS: NEOMY SULF/BACITRAC ZN/POLY 15 GM TUBE TP SCH ×2 (08:25→20:39)
[2020-02-13] MEDS: Z GUARD REMEDY 2 OZ OINT TP SCH ×2 (08:25→20:39)
--- NOTE | 2020-02-13 08:26 | NUR ---
ICU/RN BP MEDS - HELD SCHEDULED BP MEDS HELD DUE TO PT'S SCHEDULED DIALYSIS TX TODAY.
[2020-02-13 09:03] LABS: ABG BASE EXCESS -7.4 mmol/L; ABG OXYGEN SATURATION 90.6 % (92.0-98.5); ABG PCO2 29.7 mmHg (35.0-45.0); ABG PH 7.372 (7.350-7.450); ABG PO2 61.3 mmHg (75.0-100.0); AaDO2 333.8 mmHg; COHb 0.8 % (0.5-1.5); MetHb 0.6 % (0.0-1.5); O2Hb 89.3 % (94.0-97.0); PEEP,BG 8 cm H2O; SITE, ABG Right Radial; VT, ABG 60 mL
[2020-02-13] MEDS: INSULIN GLARGINE, 100 UNIT/ML CARTRIDGE SQ SCH ×2 (10:00→21:32)
--- NOTE | 2020-02-13 10:09 | NUR ---
ICU/RN LATUS - HELD BLOOD GLUCOSE 102. SCHEDULED LANTUS 12 UNITS HELD. PT ON NPO STATUS. NO S/S OF HYPO OR HYPERGLYCEMIA. MONITORING CONTINUED.
--- NOTE | 2020-02-13 11:53 | NUR ---
WOUND CARE CONSULT WOUND CARE RECEIVED CONSULT FOR PATIENT FOR NEW ADMISSION. WOUND CARE WILL DEFER CONSULT AND TREATMENT PLANS TO PLASTIC SURGICAL TEAM INCLUDING DPLuis Alberto WING WHO ARE CURRENTLY FOLLOWING THIS PATIENT. PATIENT WITH DUNCAN AT 13, ALL PRESSURE ULCER PREVENTION MEASURES ARE NOTED TO BE IN PLACE AT THIS TIME. 1ST STEP LOW AIRLOSS MATTRESS IN PLACE. WILL SEE PRN.
--- NOTE | 2020-02-13 12:55 | NUR ---
ICU/SUPERINTENDENT GAS DISTRIBUTION OF CARE REPORT GIVEN TO NURSE MARTELL, ENDORSED PT TO CONTINUE CARE.
[2020-02-13] MEDS ORDERED: CEFEPIME 2 GM in IV D5W 100 ML IV ONE (13:00)
--- NOTE | 2020-02-13 13:00 | NUR ---
FISH FARMER INITIAL NOTE RECEIVED REPORT FROM JAVED FISCHER .PATIENT IN BED WITH TRACH VENT .TACHYPNEIC.SATURATING 95%.ALERT X ORIENTED. ABLE TO ANSWER YES OR KNOW BY THUMPS UP.IV LINES ARE IN TACT AND PATENT.CANNON CATH DRAINING DARK CLOUDY URINE.BED IS LOW AND IN LOCKED POSITION.CALL LIGHT IN REACH.BED ALARM ON.SRX3.WILL CONTINUE TO MONITOR.
--- NOTE | 2020-02-13 13:29 | NUR ---
FISCAL SERVICES DIRECTOR NOTE RADIOLOGY CALLED FOR CT SCAN.MADE AWARE THAT PATIENT ON HD.WILL F/U AFTER HD.
[2020-02-13] MEDS: HYDROCODONE/APAP 5/325MG 1 EACH TABLET PO PRN (13:44)
[2020-02-13] MEDS ORDERED: MORPHINE SULFATE INJ 2 MG/ML DISP.SYRIN IVP PRN (15:30)
[2020-02-13] MEDS: LORAZEPAM INJ 2 MG/ML VIAL IVP PRN (16:31)
--- NOTE | 2020-02-13 18:39 | NUR ---
DOCK ASSOCIATE NOTE S/P DIALYSIS.ULTRAFILTRATION ONLY.VANCO LEVEL 27.PHARMACY MADE AWARE.HOLD POST HD DOSE TODAY.WILL CONTINUE TO MONITOR.
--- NOTE | 2020-02-13 19:05 | NUR ---
JAVA LEAD DEVELOPER CLOSING NOTE PATIENT IN BED WITH TRACH VENT .TACHYPNEIC.SATURATING 96%.ALERT X ORIENTED. ABLE TO ANSWER YES OR KNOW BY THUMPS UP.ON TELE MONITOR SR WITH HR 79.IV LINES ARE INTACT AND PATENT.CANNON CATH DRAINING DARK CLOUDY URINE.BED IS LOW AND IN LOCKED POSITION.CALL LIGHT IN REACH.BED ALARM ON.SRX3.ENDORSED TO PM NURSE FOR SALLY.
--- NOTE | 2020-02-13 19:35 | NUR ---
CONTINUOUS MINER OPENING NOTE, RECEIVED PATIENT IN BED WITH TRACH VENT. TACHYPNEIC. SATURATING 95%. ALERT/ORIENTED X2, ABLE TO ANSWER YES OR NO BY THUMPS UP. IV RFA #18 AND R-WRIST #22 RUNNING NS @100ML/HR ARE INTACT AND PATENT, R FEMORAL HD CATH. CANNON CATH DRAINING DARK CLOUDY URINE TO THE GRAVITY. BED IS LOW AND IN LOCKED POSITION. CALL LIGHT IN REACH. BED ALARM ON. WILL CONTINUE TO MONITOR.
[2020-02-13] MEDS: FLUCONAZOLE (100 MG) 100 MG TABLET PO SCH (21:31)
--- NOTE | 2020-02-13 21:33 | NUR ---
PATIENTS BS 95, CHARGE NURSE NOTIFIED , SCHEDULED 12 UNIT INSULIN LANTUS/GLARGIN WAS NOT ADMINISTERED DUE TO LOW BLOOD JJ WILL CONTINUE TO MONITOR BS AT 0000
[2020-02-14] VITALS (24 sets, daily range): BP systolic 107–149; BP diastolic 49–92
[2020-02-14] MEDS: BLOOD SUGAR DIAGNOSTIC 1 EACH STRIP IN SCH ×4 (00:10→17:12)
[2020-02-14] MEDS: ALBUTEROL FS 2.5 MG/0.5 ML VIAL.NEB IH SCH ×4 (02:12→19:31)
[2020-02-14] MEDS: IPRATROPIUM NEB FS 0.5 MG/2.5 ML AMPUL.NEB IH SCH ×4 (02:12→19:32)
[2020-02-14 05:02] LABS: CALCIUM, SERUM 8.5 mg/dL (8.5-10.1); CREATININE 5.8 mg/dL (0.6-1.3); POTASSIUM 4.1 mmol/L (3.5-5.1)
[2020-02-14] MEDS ORDERED: LABETALOL HCL (100MG) 100 MG TABLET ONE (05:24)
[2020-02-14] MEDS: METOCLOPRAMIDE HCL 10 MG TABLET GT SCH ×3 (05:27→21:37)
[2020-02-14] MEDS: CLONIDINE HCL 0.1 MG TABLET GT SCH ×3 (05:28→21:36)
[2020-02-14] MEDS: LABETALOL HCL (100MG) 100 MG TABLET GT SCH ×3 (05:28→21:00)
--- NOTE | 2020-02-14 07:03 | NUR ---
STORE MANAGER CLOSING NOTE, PATIENT IN BED WITH TRACH VENT .TACHYPNEIC. SATURATING 95%. ALERT/ORIENTED X1. ABLE TO ANSWER YES OR KNOW BY THUMPS UP. ON TELE MONITOR SR WITH HR 68. IV LINES ARE INTACT AND PATENT NO S/S OF INFILTRATION. CANNON CATH DRAINING DARK CLOUDY URINE TO THE GRAVITY. ALL NEEDS HAS BEEN PROVIDED DURING MACHINE CHOCOLATE MOLDER. PATIENT KEPT CLEAN AND DRY. BED IS IN LOW/LOCKED POSITION. CALL LIGHT IS WITHIN REACH. BED ALARM ON. WILL ENDORSE THE PATIENT AM NURSE FOR SALLY.
[2020-02-14] MEDS: LORAZEPAM INJ 2 MG/ML VIAL IVP PRN ×2 (07:35→10:16)
[2020-02-14] MEDS: DOCUSATE SODIUM LIQ 100 MG/10 ML UDC GT SCH ×2 (08:51→21:37)
[2020-02-14] MEDS: FERROUS SULFATE UDC 300 MG/5 ML UDC GT SCH (08:51)
[2020-02-14] MEDS: CHLORHEXIDINE GLUCONATE 15 ML UDC MM SCH (08:51)
[2020-02-14] MEDS: ISOSORBIDE DINITRATE (20MG) 20 MG TABLET GT SCH ×3 (08:52→16:30)
[2020-02-14] MEDS: FAMOTIDINE (20 MG) 20 MG TABLET GT SCH (08:52)
[2020-02-14] MEDS: DOXAZOSIN MESYLATE (4 MG) 4 MG TABLET GT SCH ×2 (08:52→21:36)
[2020-02-14] MEDS: MINOXIDIL (2.5MG) 2.5 MG TABLET GT SCH ×2 (08:52→16:30)
[2020-02-14] MEDS: AMLODIPINE BESYLATE 10 MG TABLET GT SCH (08:52)
[2020-02-14] MEDS: VIT B CMPLX 3/FA/VIT C/BIOTIN 1 TAB TABLET GT SCH (08:52)
[2020-02-14] MEDS: Z GUARD REMEDY 2 OZ OINT TP SCH ×2 (08:53→21:24)
[2020-02-14] MEDS: NEOMY SULF/BACITRAC ZN/POLY 15 GM TUBE TP SCH ×2 (08:53→21:24)
[2020-02-14] MEDS: LORATADINE 10 MG TABLET GT SCH (08:53)
[2020-02-14] MEDS: LACTOBACILLUS RHAMNOSUS GG 1 EACH CAP.SPRINK GT SCH ×2 (08:53→16:30)
[2020-02-14] MEDS: INSULIN GLARGINE, 100 UNIT/ML CARTRIDGE SQ SCH ×2 (09:27→22:00)
--- NOTE | 2020-02-14 10:00 | NUR ---
RN NOTE 0720: Received patient lethargic, able to communicate by mouthing words. With trache to vent, noted with high RR, 40's. FIO2 80% PEEP 10. SR on the monitor. GT clamped, remained NPO for episode of coffee ground residuals. No residual noted at this time. Right fem HD cath intact. 2 PIVs intact, IVF infusing as ordered. 0800: Ativan given for high RR, will continue to monitor. 0930: HD nurse at bedside. 0945: Dr. Braun ordered ABG, patient already on HD, will wait for HD to be done. 1000: Tolerating HD at this time. Will continue to monitor.
[2020-02-14 11:34] LABS: ABG BASE EXCESS -4.5 mmol/L; ABG OXYGEN SATURATION 97.3 % (92.0-98.5); ABG PCO2 31.8 mmHg (35.0-45.0); ABG PH 7.408 (7.350-7.450); ABG PO2 105.5 mmHg (75.0-100.0); AaDO2 431.5 mmHg; COHb 0.5 % (0.5-1.5); MetHb 0.6 % (0.0-1.5); O2Hb 96.2 % (94.0-97.0); PEEP,BG 10 cm H2O; SITE, ABG Left Radial; VT, ABG 500 mL
[2020-02-14] MEDS: CEFEPIME 1 GM in IV D5W 50 ML IV SCH (12:18)
--- NOTE | 2020-02-14 12:20 | NUR ---
RN NOTE Done with HD, ABG resulted, made Dr. Braun aware, patient still noted with high RR at times, MD ordered to decrease FIO2 dute to high PO2 and start on Diprivan drip for high vent settings and high RR.
[2020-02-14] MEDS ORDERED: CEFEPIME 1 GM in IV NS 0.9% 50 ML IV SCH (13:00)
[2020-02-14] MEDS: IV NS 0.9% 1,000 ML IV PRN ×2 (13:11→23:14)
[2020-02-14] MEDS: PROPOFOL 100 ML IV PRN ×2 (16:29→22:30)
--- NOTE | 2020-02-14 19:20 | NUR ---
TRANSMISSION SPECIALIST OPENING NOTE, RECEIVED PATIENT IN BED WITH TRACH TO VENT. PATIENT IS ON DIPRIVAN DRIP @30 MCG/KG/MIN DUE TO HIGH RR. TOLERATING WELL. SATURATING 98%. ALERT/ORIENTED X1. ABLE TO ANSWER YES OR KNOW BY THUMPS UP. HR 67. GT TUBE CLAMPED AND REMAINING NPO. BOTH IV LINES ARE INTACT AND PATENT NO S/S OF INFILTRATION. HD CATH @R FEMORAL INTACT AND PATENT. CANNON CATH DRAINING DARK CLOUDY URINE TO THE GRAVITY. BED IS IN LOW/LOCKED POSITION. CALL LIGHT IS WITHIN REACH. BED ALARM ON. WILL CONTINUE TO MONITOR.
--- NOTE | 2020-02-14 21:32 | NUR ---
LABETALOL 600MG WAS NOT ADMINISTERED PER SCHEDULING ASSISTANT NURSES PERMISSION DUE TO PATIENT'S LOW BP. 108/55 HR 66 WILL CONTINUE TO MONITOR THE PATIENT
[2020-02-14] MEDS: FLUCONAZOLE (100 MG) 100 MG TABLET PO SCH (21:37)
--- NOTE | 2020-02-14 22:02 | NUR ---
SCHEDULED INSULIN LANTUS 12 UNITS WAS NOT ADMINISTERED DUE TO PATIENTS LOW BS OF 94. PATIENT IS NPO AND HIS G-TUBE IS CLAMPED FOR COFFEE GROUND RESIDUAL ON 01-15-20. PATIENT WILL HAVE CT OF ABD AND PELVIC W/O CONTRAST WHEN STABLE. WILL CONTINUE TO MONITOR PATIENT BS.
[2020-02-15] VITALS (24 sets, daily range): BP systolic 112–136; BP diastolic 55–74
[2020-02-15] MEDS: BLOOD SUGAR DIAGNOSTIC 1 EACH STRIP IN SCH ×5 (00:09→23:29)
[2020-02-15] MEDS: ALBUTEROL FS 2.5 MG/0.5 ML VIAL.NEB IH SCH ×4 (01:49→19:49)
[2020-02-15] MEDS: IPRATROPIUM NEB FS 0.5 MG/2.5 ML AMPUL.NEB IH SCH ×4 (01:49→19:49)
--- NOTE | 2020-02-15 04:00 | NUR ---
PATIENTS O2 DECREASED TO 90, RT NOTIFIED AND FIO2 WAS RAISED TO 80 % FROM 65%. WILL CONTINUE TO MONITOR. Addendum: 02/15/20 at 0655 by GREG CASTILLO RN INCREASED PATIENTS DIPRIVAN TO 35, DUE TO MILD AGITATION AND LOW O2 90%. WILL CONTINUE TO MONITOR
--- NOTE | 2020-02-15 04:00 | NUR ---
FIO2 INCREASED DUE TO DECREASED SPO2. RN NOTIFIED Addendum: 02/15/20 at 0533 by BRIE MEJÍA RT Amended: Links added.
[2020-02-15 04:40] LABS: CALCIUM, SERUM 8.1 mg/dL (8.5-10.1); CREATININE 4.5 mg/dL (0.6-1.3); POTASSIUM 3.9 mmol/L (3.5-5.1)
[2020-02-15] MEDS: METOCLOPRAMIDE HCL 10 MG TABLET GT SCH ×3 (05:11→21:10)
[2020-02-15] MEDS ORDERED: CLONIDINE HCL 0.1 MG TABLET ONE (05:16)
[2020-02-15] MEDS ORDERED: LABETALOL HCL (100MG) 100 MG TABLET ONE (05:17)
[2020-02-15] MEDS: LABETALOL HCL (100MG) 100 MG TABLET GT SCH ×3 (05:19→21:17)
[2020-02-15] MEDS: CLONIDINE HCL 0.1 MG TABLET GT SCH ×3 (05:19→21:19)
--- NOTE | 2020-02-15 05:31 | NUR ---
FIO2 INCREASED DUE TO DECREASED SPO2 RN NOTIFIED
[2020-02-15] MEDS: PROPOFOL 100 ML IV PRN ×5 (05:45→21:55)
--- NOTE | 2020-02-15 07:18 | NUR ---
CRTTS CLOSING NOTE, PATIENT IN BED WITH TRACH TO VENT. PATIENT IS ON DIPRIVAN DRIP @40 MCG/KG/MIN DUE TO HIGH RR. TOLERATING WELL. SATURATING 99%. HR 74. GT TUBE CLAMPED AND REMAINING NPO. BOTH IV LINES ARE INTACT AND PATENT NO S/S OF INFILTRATION. HD CATH @R FEMORAL INTACT AND PATENT. CANNON CATH DRAINING DARK CLOUDY URINE TO THE GRAVITY. BED IS IN LOW/LOCKED POSITION. CALL LIGHT IS WITHIN REACH. BED ALARM ON. ENDORSED THE PATIENT TO AM RN FOR SALLY.
--- NOTE | 2020-02-15 07:25 | NUR ---
RT PATIENT REC'D TRACHED ON [facility] VENT WITH ORDERED SETTINGS. VENT ALARMS CHECKED + AUDIBLE. AMBU BAG AT HOB Addendum: 02/15/20 at 1635 by SUMA NICHOLAS RT Amended: Links added.
[2020-02-15] MEDS: DOCUSATE SODIUM LIQ 100 MG/10 ML UDC GT SCH ×2 (08:10→21:13)
[2020-02-15] MEDS: CHLORHEXIDINE GLUCONATE 15 ML UDC MM SCH (08:10)
[2020-02-15] MEDS: FERROUS SULFATE UDC 300 MG/5 ML UDC GT SCH (08:10)
[2020-02-15] MEDS: ISOSORBIDE DINITRATE (20MG) 20 MG TABLET GT SCH ×3 (08:11→17:38)
[2020-02-15] MEDS: AMLODIPINE BESYLATE 10 MG TABLET GT SCH (08:12)
[2020-02-15] MEDS: LACTOBACILLUS RHAMNOSUS GG 1 EACH CAP.SPRINK GT SCH ×2 (08:12→17:38)
[2020-02-15] MEDS: DOXAZOSIN MESYLATE (4 MG) 4 MG TABLET GT SCH ×2 (08:12→21:14)
[2020-02-15] MEDS: FAMOTIDINE (20 MG) 20 MG TABLET GT SCH (08:12)
[2020-02-15] MEDS: MINOXIDIL (2.5MG) 2.5 MG TABLET GT SCH ×2 (08:12→17:38)
[2020-02-15] MEDS: VIT B CMPLX 3/FA/VIT C/BIOTIN 1 TAB TABLET GT SCH (08:12)
[2020-02-15] MEDS: LORATADINE 10 MG TABLET GT SCH (08:13)
[2020-02-15] MEDS: NEOMY SULF/BACITRAC ZN/POLY 15 GM TUBE TP SCH ×2 (08:13→21:52)
[2020-02-15] MEDS: Z GUARD REMEDY 2 OZ OINT TP SCH ×2 (08:13→21:52)
[2020-02-15] MEDS: INSULIN GLARGINE, 100 UNIT/ML CARTRIDGE SQ SCH ×2 (10:00→22:00)
--- NOTE | 2020-02-15 11:42 | NUR ---
RN NOTE 0715: Received patient on sedation for episodes of increase WOB. With trache to vent, on high settings. With GT intact, remained NPO for episode of coffee ground residuals before. No BM from last shift, will inform MD if able to start GT feeding. Unable to do CT abd for now for patient on PEEP 10, FIO2 80, and on Diprivan @ 40 for increase WOB.Herrera cath intact, noted with minimal UOP, dark kenna. SR on the monitor. PIVs intact. Right femoral HD cath intact. 0900: S/E by Dr. Braun, with order to DC IVF. Continue Diprivan. 1140: No any significant changes noted at this time. Kept clean, warm and dry. Needs attended.
[2020-02-15] MEDS: CEFEPIME 1 GM in IV D5W 50 ML IV SCH (12:29)
[2020-02-15] MEDS ORDERED: EPOETIN ALFA EPBX 10000 UNIT SQ SCH (13:00)
[2020-02-15] MEDS ORDERED: RETACRIT 10,000 UNITS SQ SCH (13:00)
[2020-02-15 16:35] LABS: BASOPHILS % (AUTO) 0.4 % (0.0-2.0); EOSINOPHILS % (AUTO) 8.4 % (0.0-6.0); HEMATOCRIT 23 % (39-51); HEMOGLOBIN 7.3 g/dL (13.5-17.5); LYMPHOCYTES # (AUTO) 0.6 /CMM (0.8-4.8); LYMPHOCYTES % (AUTO) 5.6 % (20.0-44.0); MEAN CORPUSCULAR HGB CONC 32 g/dl (31.0-36.0); MEAN CORPUSCULAR VOLUME 92 fL (80-96); MONOCYTES # (AUTO) 0.9 /CMM (0.1-1.30); MONOCYTES % (AUTO) 7.9 % (2.0-12.0); NEUTROPHILS # (AUTO) 8.8 /CMM (1.8-8.9); NEUTROPHILS % (AUTO) 77.7 % (43.0-81.0); PLATELET COUNT (AUTO) 224 /CMM (150-450); RED BLOOD CELL COUNT(AUTO) 2.49 MIL/uL (4.5-6.0); WHITE BLOOD COUNT (AUTO) 11.4 K/uL (4.3-11.0)
--- NOTE | 2020-02-15 18:24 | NUR ---
RN NOTE H/H still low, will monitor bleeding, kept NPO for now. Monitored BS, stable for now. IVF off per Pulmo. VSS with vent on Diprivan for high RR. Still high vent settings, held CT abd. Will continue to monitor.
--- NOTE | 2020-02-15 19:00 | NUR ---
Received patient with trache. on the ventilator on AC mode,breathing regular but still breathing a little labored with deep inspiratory effort,but not in acute respiratory distress,saturating 99-100% with high FIO2 80 %,Peep =10. mildly sedated with Propofol,drowsy but easily arousable and follows simple commands, moves both arms but weakly. + strong cough and gag. NPO ,with G tube clamped/ patent.
--- NOTE | 2020-02-15 19:50 | NUR ---
RECEIVED PT TRACH WITH PORTEX 7 ON VENT WITH NOTED SETTINGS . NO RESP DISTRESS NOTED AT THIS TIME. PT TOLERATING VENT SETTINGS. CUFF STRUCTURAL STEEL EQUIPMENT ERECTOR, Q6 BREATHING TX GIVEN. NO ADVERSE REACTION NOTED. SX'D DONE PRN. PT RESPONDS TO STIMULI WHEN SUCTION. VENT ALARMS SET AND AUDIBLE. AMBU BAG AT BEDSIDE. VENT PLUGGED INTO RED OUTLET. WILL CONTINUE TO MONITOR THE PT T/O SHIFT.
--- NOTE | 2020-02-15 21:00 | NUR ---
tachypneic, coughing a lot, peak pressure in the 40's, Propofol drip to 40 mcg/kg/min
[2020-02-15] MEDS: FLUCONAZOLE (100 MG) 100 MG TABLET PO SCH (21:14)
--- NOTE | 2020-02-15 22:00 | NUR ---
Calmer,breathing less labored.Propofol down to 35 mcg/kg/min
[2020-02-16] VITALS (30 sets, daily range): BP systolic 115–141; BP diastolic 56–72
--- NOTE | 2020-02-16 | NUR ---
Stable.Not in any distress,sedated but easily arousable.
--- NOTE | 2020-02-16 01:00 | NUR ---
FIO2 down to 60 %.
[2020-02-16] MEDS: IPRATROPIUM NEB FS 0.5 MG/2.5 ML AMPUL.NEB IH SCH ×4 (01:03→20:05)
[2020-02-16] MEDS: ALBUTEROL FS 2.5 MG/0.5 ML VIAL.NEB IH SCH ×4 (01:04→20:05)
--- NOTE | 2020-02-16 03:00 | NUR ---
Am bath done,tolerated turning /moving.No desaturation
[2020-02-16] MEDS: PROPOFOL 100 ML IV PRN ×4 (03:34→23:13)
--- NOTE | 2020-02-16 04:05 | NUR ---
fIO2 down to 50 %
[2020-02-16 04:40] LABS: BASOPHILS # (AUTO) 0.1 /CMM (0.0-0.2); BASOPHILS % (AUTO) 0.6 % (0.0-2.0); EOSINOPHILS % (AUTO) 9.8 % (0.0-6.0); LYMPHOCYTES # (AUTO) 0.6 /CMM (0.8-4.8); LYMPHOCYTES % (AUTO) 5.1 % (20.0-44.0); MEAN CORPUSCULAR HGB CONC 33 g/dl (31.0-36.0); MEAN CORPUSCULAR VOLUME 90 fL (80-96); MONOCYTES % (AUTO) 8.2 % (2.0-12.0); NEUTROPHILS # (AUTO) 9.3 /CMM (1.8-8.9); NEUTROPHILS % (AUTO) 76.3 % (43.0-81.0); PLATELET COUNT (AUTO) 227 /CMM (150-450); RED BLOOD CELL COUNT(AUTO) 2.13 MIL/uL (4.5-6.0); WHITE BLOOD COUNT (AUTO) 12.2 K/uL (4.3-11.0)
[2020-02-16] MEDS ORDERED: LABETALOL HCL (100MG) 100 MG TABLET ONE (04:59)
[2020-02-16] MEDS: METOCLOPRAMIDE HCL 10 MG TABLET GT SCH ×3 (05:03→21:31)
[2020-02-16] MEDS: CLONIDINE HCL 0.1 MG TABLET GT SCH ×3 (05:05→21:32)
[2020-02-16] MEDS: LABETALOL HCL (100MG) 100 MG TABLET GT SCH ×3 (05:06→21:33)
[2020-02-16 05:17] LABS: HEMATOCRIT 19 % (39-51); HEMOGLOBIN 6.4 g/dL (13.5-17.5)
--- NOTE | 2020-02-16 05:30 | NUR ---
Called , Camille sanders,relayed HGB = 6.4 from 7.3 .No transfusion order at this time,she stated patient has chronic anemia and would defer decision to transfuse for now and let nephrology decide.Patient has no s/S of any bleeding,no coffe ground or any blood from G tube
[2020-02-16 05:34] LABS: CALCIUM, SERUM 7.5 mg/dL (8.5-10.1); CREATININE 5.2 mg/dL (0.6-1.3); POTASSIUM 3.9 mmol/L (3.5-5.1)
[2020-02-16 05:44] LABS: LYMPHOCYTES % (MANUAL) 3 % (16-48); MONOCYTES % (MANUAL) 31 % (0-11.0); NEUTROPHILS % (MANUAL) 93 (42-76)
--- NOTE | 2020-02-16 06:00 | NUR ---
Calmer, but still with PIP=40's,saturating 96 % with FIO2 of 50 %.
[2020-02-16] MEDS: BLOOD SUGAR DIAGNOSTIC 1 EACH STRIP IN SCH ×4 (06:20→23:36)
--- NOTE | 2020-02-16 07:00 | NUR ---
Report given to Dewayne SILVEIRA
[2020-02-16] MEDS: CHLORHEXIDINE GLUCONATE 15 ML UDC MM SCH (08:15)
[2020-02-16] MEDS: AMLODIPINE BESYLATE 10 MG TABLET GT SCH (08:15)
[2020-02-16] MEDS: VIT B CMPLX 3/FA/VIT C/BIOTIN 1 TAB TABLET GT SCH (08:15)
[2020-02-16] MEDS: DOCUSATE SODIUM LIQ 100 MG/10 ML UDC GT SCH ×2 (08:15→21:31)
[2020-02-16] MEDS: FERROUS SULFATE UDC 300 MG/5 ML UDC GT SCH (08:15)
[2020-02-16] MEDS: DOXAZOSIN MESYLATE (4 MG) 4 MG TABLET GT SCH ×2 (08:16→21:31)
[2020-02-16] MEDS: MINOXIDIL (2.5MG) 2.5 MG TABLET GT SCH ×2 (08:16→16:30)
[2020-02-16] MEDS: LACTOBACILLUS RHAMNOSUS GG 1 EACH CAP.SPRINK GT SCH ×2 (08:16→16:30)
[2020-02-16] MEDS: FAMOTIDINE (20 MG) 20 MG TABLET GT SCH (08:16)
[2020-02-16] MEDS: NEOMY SULF/BACITRAC ZN/POLY 15 GM TUBE TP SCH ×2 (08:17→21:35)
[2020-02-16] MEDS: Z GUARD REMEDY 2 OZ OINT TP SCH ×2 (08:17→21:34)
[2020-02-16] MEDS: ISOSORBIDE DINITRATE (20MG) 20 MG TABLET GT SCH ×3 (08:17→16:30)
[2020-02-16] MEDS: LORATADINE 10 MG TABLET GT SCH (08:17)
--- NOTE | 2020-02-16 08:36 | NUR ---
received pt from pension adviser, sedated on Diprivan at 45mcg, SR, on the vent, high peep, sat well, NPO, GT clamped s/t coffee ground emesis, f/c low output HD patient, v/s stable, no pain, pt turned and repositioned, blood will be transfused with HD per MD.
[2020-02-16 08:45] LABS: ABG BASE EXCESS -4.6 mmol/L; ABG OXYGEN SATURATION 89.4 % (92.0-98.5); ABG PCO2 34.5 mmHg (35.0-45.0); ABG PH 7.382 (7.350-7.450); ABG PO2 60.8 mmHg (75.0-100.0); AaDO2 329.1 mmHg; COHb 1.1 % (0.5-1.5); MetHb 0.8 % (0.0-1.5); O2Hb 87.7 % (94.0-97.0); PEEP,BG 10 cm H2O; SITE, ABG Right Radial
[2020-02-16] MEDS: INSULIN GLARGINE, 100 UNIT/ML CARTRIDGE SQ SCH ×2 (10:00→22:00)
[2020-02-16] MEDS: CEFEPIME 1 GM in IV D5W 50 ML IV SCH (13:06)
--- NOTE | 2020-02-16 16:10 | NUR ---
pt is resting in the bed, sedated on Diprivan at 45mcg, SR, on the vent sat well, v/s stable, no pain, pt cleaned, changed and repositioned q2hrs.
--- NOTE | 2020-02-16 19:00 | NUR ---
Received patient sedated but arousable ,opens eyes ,moves extremities. with trache to the ventilator on AC mode.not in any distress,breathing regular and non labored at this time. + cough and gag. G tube intact still NPO ( will follow up tube feeding in am ( no more coffe ground residual noted). For Hemodialysis tonight ,will receive 1 unit PRBC during HD. 1930 Called next of kin written in the chart to obtain consent for blood transfusion and for possible PICC line insertion tonight,left message.
--- NOTE | 2020-02-16 19:00 | NUR ---
Started Hemodialysis. 1999 1 unit PRBC given by public affairs specialist during HD.
--- NOTE | 2020-02-16 20:00 | NUR ---
Family memeber called back ,spoke to . Keith Latoya( uncle) consented for blood transfusion and PICC line insertion after explanation of procedure.
--- NOTE | 2020-02-16 20:05 | NUR ---
RT NOTE PT RECEIVED TRACHD ON MECHANICAL VENT. PATIENT IS TOLERATING CURRENT ORDERED AC SETTINGS. NO SIGNS OF RESPIRATORY DISTRESS NOTED. ALARMS ARE SET AND AUDIBLE. MECHANICAL VENT IS PLUGGED INTO RED OUTLET. EMERGENCY EQUIPMENT AT BEDSIDE. Addendum: 02/16/20 at 2234 by ABBY COYLE RT Amended: Links added.
--- NOTE | 2020-02-16 21:30 | NUR ---
Hemodialysis over ,tolerated well, 2 liters pulled as per HD nurse
[2020-02-16] MEDS: FLUCONAZOLE (100 MG) 100 MG TABLET PO SCH (21:31)
--- NOTE | 2020-02-16 23:00 | NUR ---
Midline inserted by PICC line nurse(Narciso) via TOM.
[2020-02-17] VITALS (24 sets, daily range): BP systolic 111–139; BP diastolic 50–73
[2020-02-17] MEDS: IPRATROPIUM NEB FS 0.5 MG/2.5 ML AMPUL.NEB IH SCH ×4 (01:58→19:35)
[2020-02-17] MEDS: ALBUTEROL FS 2.5 MG/0.5 ML VIAL.NEB IH SCH ×4 (01:58→19:35)
--- NOTE | 2020-02-17 02:00 | NUR ---
Stable, sedated but easily awakens ,calm and cooperative.
[2020-02-17] MEDS: PROPOFOL 100 ML IV PRN ×5 (03:35→23:11)
--- NOTE | 2020-02-17 05:00 | NUR ---
Remains stable,Awakens on and off ,maintained propofol drip @ 45 mcg/kg/min.
[2020-02-17 05:08] LABS: BASOPHILS # (AUTO) 0.1 /CMM (0.0-0.2); BASOPHILS % (AUTO) 0.8 % (0.0-2.0); EOSINOPHILS % (AUTO) 16.9 % (0.0-6.0); HEMATOCRIT 23 % (39-51); HEMOGLOBIN 7.4 g/dL (13.5-17.5); LYMPHOCYTES # (AUTO) 0.6 /CMM (0.8-4.8); MEAN CORPUSCULAR HGB CONC 33 g/dl (31.0-36.0); MEAN CORPUSCULAR VOLUME 89 fL (80-96); MONOCYTES # (AUTO) 0.8 /CMM (0.1-1.30); MONOCYTES % (AUTO) 8.7 % (2.0-12.0); NEUTROPHILS # (AUTO) 6.2 /CMM (1.8-8.9); NEUTROPHILS % (AUTO) 67.6 % (43.0-81.0); PLATELET COUNT (AUTO) 239 /CMM (150-450); RED BLOOD CELL COUNT(AUTO) 2.53 MIL/uL (4.5-6.0); WHITE BLOOD COUNT (AUTO) 9.2 K/uL (4.3-11.0)
[2020-02-17 05:26] LABS: CALCIUM, SERUM 7.9 mg/dL (8.5-10.1); CREATININE 3.8 mg/dL (0.6-1.3); MAGNESIUM 2.6 mg/dL (1.8-2.4); PHOSPHORUS 3.4 mg/dL (2.5-4.9); POTASSIUM 3.6 mmol/L (3.5-5.1)
[2020-02-17] MEDS ORDERED: LABETALOL HCL (100MG) 100 MG TABLET ONE (05:26)
[2020-02-17] MEDS ORDERED: CLONIDINE HCL 0.1 MG TABLET ONE (05:27)
[2020-02-17] MEDS: METOCLOPRAMIDE HCL 10 MG TABLET GT SCH ×3 (05:29→21:23)
[2020-02-17] MEDS: CLONIDINE HCL 0.1 MG TABLET GT SCH ×3 (05:30→21:23)
[2020-02-17] MEDS: LABETALOL HCL (100MG) 100 MG TABLET GT SCH ×3 (05:31→21:24)
[2020-02-17] MEDS: BLOOD SUGAR DIAGNOSTIC 1 EACH STRIP IN SCH ×4 (05:40→23:54)
--- NOTE | 2020-02-17 07:00 | NUR ---
Report given to Dewayne FISCHER
--- NOTE | 2020-02-17 08:16 | NUR ---
received pt from overnight stocker, sedated on Diprivan at 45mcg, SR, on V/T/P chronic, on high peep, lungs are congested, sat well, NPO, f/c low output, HD pt, v/s stable, no pain, pt turned and repositioned.
[2020-02-17] MEDS: DOXAZOSIN MESYLATE (4 MG) 4 MG TABLET GT SCH ×2 (09:08→21:22)
[2020-02-17] MEDS: LORATADINE 10 MG TABLET GT SCH (09:08)
[2020-02-17] MEDS: LACTOBACILLUS RHAMNOSUS GG 1 EACH CAP.SPRINK GT SCH ×2 (09:08→17:28)
[2020-02-17] MEDS: FAMOTIDINE (20 MG) 20 MG TABLET GT SCH (09:08)
[2020-02-17] MEDS: MINOXIDIL (2.5MG) 2.5 MG TABLET GT SCH ×2 (09:08→17:28)
[2020-02-17] MEDS: DOCUSATE SODIUM LIQ 100 MG/10 ML UDC GT SCH ×2 (09:08→21:23)
[2020-02-17] MEDS: CHLORHEXIDINE GLUCONATE 15 ML UDC MM SCH (09:08)
[2020-02-17] MEDS: ISOSORBIDE DINITRATE (20MG) 20 MG TABLET GT SCH ×3 (09:09→17:28)
[2020-02-17] MEDS: FERROUS SULFATE UDC 300 MG/5 ML UDC GT SCH (09:09)
[2020-02-17] MEDS: AMLODIPINE BESYLATE 10 MG TABLET GT SCH (09:09)
[2020-02-17] MEDS: VIT B CMPLX 3/FA/VIT C/BIOTIN 1 TAB TABLET GT SCH (09:09)
[2020-02-17] MEDS: NEOMY SULF/BACITRAC ZN/POLY 15 GM TUBE TP SCH ×2 (09:10→21:27)
[2020-02-17] MEDS: Z GUARD REMEDY 2 OZ OINT TP SCH ×2 (09:10→21:25)
[2020-02-17] MEDS: INSULIN GLARGINE, 100 UNIT/ML CARTRIDGE SQ SCH ×2 (09:39→21:38)
[2020-02-17] MEDS: CEFEPIME 1 GM in IV D5W 50 ML IV SCH (12:29)
--- NOTE | 2020-02-17 16:11 | NUR ---
pt is sedated on Diprivan at 45mcg, SR, v/s stable, no pain, pt cleaned, changed and repositioned q2hrs.
--- NOTE | 2020-02-17 17:36 | NUR ---
RT NOTE: PATIENT RECEIVED TRACHED ON MECHANICAL VENT. ALARMS VERIFIED AND AUDIBLE. VENT PLUGGED INTO RED OUTLET. AMBU BAG AT [facility].
--- NOTE | 2020-02-17 19:35 | NUR ---
RT NOTES PT RECEIVED TRACHED ON [facility] VENT ON CHARTED SETTINGS. NO SIGNS OF RESP DISTRESS. HVAC SALES ENGINEER DONE. AIRWAY PATENT AND SECURED. PT SUCTIONED. ALARMS SET AND AUDIBLE. AMBUBAG AND SPARE TRACH AT BEDSIDE. VENT PLUGGED TO RED OUTLET. WILL CONT TO MONITOR. Addendum: 02/17/20 at 2032 by GINETTE MAHONEY RT Amended: Links added.
--- NOTE | 2020-02-17 19:46 | NUR ---
ICU/RN OPENING NOTE RECEIVED PATIENT WITH TRACH ON VENTILATOR AND SEDATED., RESPONSIVE TO PAIN STIMULI, NO SIGN OF ANY DISTRESS NOTED AND NO SIGNS OF SOB. RESPIRATION EVEN AND UNLABORED, SPO2 AT 95% VIA MECHANICAL VENTILATOR SETTINGS ORDERED. TRACH IS JAMES PETERS, SR 68 ON BEDSIDE MONITOR. G-TUBE INTACT NO RESIDUAL AND FLUSHING WELL PATIENT CURRENTLY NPO. FC DRAINING VIA GRAVITY WITH YELLOW OUTPUT. . RIGHT HAND #22G, AND LT HAND #22 G INTACT AND PATENT. TOM MIDLINE RUNNING WITH DIPRIVAN @45MCG/KG/MIN. AND TKO INFUSING WELL. ALL SAFETY PRECAUTIONS APPLIED. WILL CONTINUE TO MONITOR PATIENT THROUGHOUT SHIFT.
[2020-02-17] MEDS: FLUCONAZOLE (100 MG) 100 MG TABLET PO SCH (21:24)
--- NOTE | 2020-02-17 21:39 | NUR ---
ICU/RN INSULIN LANTUS NOT GIVEN. BS AT 63 WILL HOLD PER PROTOCOL. PATIENT CURRENTLY NPO
[2020-02-18] VITALS (38 sets, daily range): BP systolic 109–139; BP diastolic 47–80
[2020-02-18] MEDS: ALBUTEROL FS 2.5 MG/0.5 ML VIAL.NEB IH SCH ×4 (01:19→19:31)
[2020-02-18] MEDS: IPRATROPIUM NEB FS 0.5 MG/2.5 ML AMPUL.NEB IH SCH ×4 (01:19→19:31)
[2020-02-18] MEDS: PROPOFOL 100 ML IV PRN ×5 (04:17→22:25)
[2020-02-18] MEDS ORDERED: CLONIDINE HCL 0.1 MG TABLET ONE (05:11)
[2020-02-18] MEDS: CLONIDINE HCL 0.1 MG TABLET GT SCH ×3 (05:17→21:00)
[2020-02-18] MEDS: METOCLOPRAMIDE HCL 10 MG TABLET GT SCH ×3 (05:18→21:42)
[2020-02-18] MEDS: LABETALOL HCL (100MG) 100 MG TABLET GT SCH ×3 (05:18→21:00)
[2020-02-18] MEDS: BLOOD SUGAR DIAGNOSTIC 1 EACH STRIP IN SCH ×3 (05:19→18:19)
[2020-02-18 05:30] LABS: BASOPHILS # (AUTO) 0.1 /CMM (0.0-0.2); BASOPHILS % (AUTO) 0.7 % (0.0-2.0); EOSINOPHILS % (AUTO) 19.6 % (0.0-6.0); HEMATOCRIT 22 % (39-51); HEMOGLOBIN 7.5 g/dL (13.5-17.5); LYMPHOCYTES # (AUTO) 0.5 /CMM (0.8-4.8); LYMPHOCYTES % (AUTO) 6.4 % (20.0-44.0); MEAN CORPUSCULAR HGB CONC 34 g/dl (31.0-36.0); MEAN CORPUSCULAR VOLUME 89 fL (80-96); MONOCYTES # (AUTO) 0.8 /CMM (0.1-1.30); MONOCYTES % (AUTO) 9.6 % (2.0-12.0); NEUTROPHILS # (AUTO) 5.4 /CMM (1.8-8.9); NEUTROPHILS % (AUTO) 63.7 % (43.0-81.0); PLATELET COUNT (AUTO) 227 /CMM (150-450); RED BLOOD CELL COUNT(AUTO) 2.48 MIL/uL (4.5-6.0); WHITE BLOOD COUNT (AUTO) 8.4 K/uL (4.3-11.0)
[2020-02-18 05:47] LABS: CALCIUM, SERUM 7.6 mg/dL (8.5-10.1); MAGNESIUM 2.7 mg/dL (1.8-2.4); PHOSPHORUS 4.7 mg/dL (2.5-4.9); POTASSIUM 3.6 mmol/L (3.5-5.1)
--- NOTE | 2020-02-18 07:08 | NUR ---
ICU/RN CLOSING NOTE PATIENT WITH TRACH ON VENTILATOR AND SEDATED., RESPONSIVE TO PAIN STIMULI, NO SIGN OF ANY DISTRESS NOTED AND NO SIGNS OF SOB. RESPIRATION EVEN AND UNLABORED, SPO2 AT 96% VIA MECHANICAL VENTILATOR SETTINGS ORDERED. TRACH IS JAMES PETERS, SR 66 ON BEDSIDE MONITOR. G-TUBE INTACT NO RESIDUAL AND FLUSHING WELL PATIENT CURRENTLY NPO. FC DRAINING VIA GRAVITY WITH YELLOW MADAN OUTPUT. RIGHT HAND #22G, AND LT HAND #22 G INTACT AND PATENT. TOM MIDLINE RUNNING WITH DIPRIVAN @45MCG/KG/MIN. AND TKO INFUSING WELL. ENDORSED PATIENT TO MORNING RN FOR FURTHER CARE.
[2020-02-18] MEDS: VIT B CMPLX 3/FA/VIT C/BIOTIN 1 TAB TABLET GT SCH (08:36)
[2020-02-18] MEDS: DOXAZOSIN MESYLATE (4 MG) 4 MG TABLET GT SCH ×2 (08:36→21:00)
[2020-02-18] MEDS: ISOSORBIDE DINITRATE (20MG) 20 MG TABLET GT SCH ×3 (08:36→18:04)
[2020-02-18] MEDS: LACTOBACILLUS RHAMNOSUS GG 1 EACH CAP.SPRINK GT SCH ×2 (08:36→18:07)
[2020-02-18] MEDS: FAMOTIDINE (20 MG) 20 MG TABLET GT SCH (08:36)
[2020-02-18] MEDS: LORATADINE 10 MG TABLET GT SCH (08:37)
[2020-02-18] MEDS: DOCUSATE SODIUM LIQ 100 MG/10 ML UDC GT SCH ×2 (08:37→21:00)
[2020-02-18] MEDS: CHLORHEXIDINE GLUCONATE 15 ML UDC MM SCH (08:37)
[2020-02-18] MEDS: AMLODIPINE BESYLATE 10 MG TABLET GT SCH (08:37)
[2020-02-18] MEDS: MINOXIDIL (2.5MG) 2.5 MG TABLET GT SCH ×2 (08:37→18:07)
[2020-02-18] MEDS: FERROUS SULFATE UDC 300 MG/5 ML UDC GT SCH (08:37)
[2020-02-18] MEDS: NEOMY SULF/BACITRAC ZN/POLY 15 GM TUBE TP SCH ×2 (08:38→21:44)
[2020-02-18] MEDS: Z GUARD REMEDY 2 OZ OINT TP SCH ×2 (08:38→21:43)
--- NOTE | 2020-02-18 09:06 | NUR ---
received pt from job developer, sedated on Diprivan at 45mcg, SR, V/T/P chronic, lungs congested, PNA present, some BL foot edema, GT clamped, NPO, f/c low output, HD pt, having HD right now, v/s stable, no pain, pt turned and repositioned.
[2020-02-18] MEDS: INSULIN GLARGINE, 100 UNIT/ML CARTRIDGE SQ SCH ×2 (09:24→21:41)
[2020-02-18] MEDS: CEFEPIME 1 GM in IV D5W 50 ML IV SCH (12:43)
[2020-02-18] MEDS: NEPRO 1,000 ML BOTTLE GT PRN (13:04)
--- NOTE | 2020-02-18 16:31 | NUR ---
pt is resting in the bed, sedated on Diprivan at 45mcg, SR, HD done 1.5L out, tolerates feeding, f/c some output, v/s stable, no pain, pt cleaned, changed and repositioned q2hrs.
[2020-02-18] MEDS: FLUCONAZOLE (100 MG) 100 MG TABLET PO SCH (21:42)
[2020-02-19] VITALS (27 sets, daily range): BP systolic 96–141; BP diastolic 49–71
[2020-02-19] MEDS: IPRATROPIUM NEB FS 0.5 MG/2.5 ML AMPUL.NEB IH SCH ×4 (01:14→19:33)
[2020-02-19] MEDS: ALBUTEROL FS 2.5 MG/0.5 ML VIAL.NEB IH SCH ×4 (01:14→19:34)
--- NOTE | 2020-02-19 01:52 | NUR ---
ICU/CRAYON PAINTER REPORT FROM RIN Gutierrez RN FOR CONT OF CARE.
[2020-02-19] MEDS: BLOOD SUGAR DIAGNOSTIC 1 EACH STRIP IN SCH ×4 (02:22→18:04)
[2020-02-19] MEDS: HYDROCODONE/APAP 5/325MG 1 EACH TABLET PO PRN (02:31)
[2020-02-19] MEDS: PROPOFOL 100 ML IV PRN ×5 (03:36→22:58)
[2020-02-19 05:20] LABS: BASOPHILS # (AUTO) 0.1 /CMM (0.0-0.2); BASOPHILS % (AUTO) 0.6 % (0.0-2.0); HEMATOCRIT 23 % (39-51); HEMOGLOBIN 7.5 g/dL (13.5-17.5); LYMPHOCYTES # (AUTO) 0.6 /CMM (0.8-4.8); LYMPHOCYTES % (AUTO) 5.7 % (20.0-44.0); MEAN CORPUSCULAR HGB CONC 33 g/dl (31.0-36.0); MEAN CORPUSCULAR VOLUME 90 fL (80-96); MONOCYTES % (AUTO) 9.8 % (2.0-12.0); NEUTROPHILS # (AUTO) 7.3 /CMM (1.8-8.9); NEUTROPHILS % (AUTO) 70.9 % (43.0-81.0); PLATELET COUNT (AUTO) 233 /CMM (150-450); RED BLOOD CELL COUNT(AUTO) 2.54 MIL/uL (4.5-6.0); WHITE BLOOD COUNT (AUTO) 10.3 K/uL (4.3-11.0)
[2020-02-19] MEDS: LABETALOL HCL (100MG) 100 MG TABLET GT SCH ×3 (05:41→21:55)
[2020-02-19] MEDS: METOCLOPRAMIDE HCL 10 MG TABLET GT SCH ×3 (05:41→21:54)
[2020-02-19] MEDS: CLONIDINE HCL 0.1 MG TABLET GT SCH ×3 (05:41→21:54)
[2020-02-19 05:47] LABS: CREATININE 3.3 mg/dL (0.6-1.3); MAGNESIUM 2.5 mg/dL (1.8-2.4); PHOSPHORUS 3.9 mg/dL (2.5-4.9); POTASSIUM 3.2 mmol/L (3.5-5.1)
[2020-02-19] MEDS: FERROUS SULFATE UDC 300 MG/5 ML UDC GT SCH (10:51)
[2020-02-19] MEDS: DOCUSATE SODIUM LIQ 100 MG/10 ML UDC GT SCH ×2 (10:51→21:53)
[2020-02-19] MEDS: CHLORHEXIDINE GLUCONATE 15 ML UDC MM SCH (10:51)
[2020-02-19] MEDS: MINOXIDIL (2.5MG) 2.5 MG TABLET GT SCH ×2 (10:52→17:45)
[2020-02-19] MEDS: LACTOBACILLUS RHAMNOSUS GG 1 EACH CAP.SPRINK GT SCH ×2 (10:53→17:44)
[2020-02-19] MEDS: AMLODIPINE BESYLATE 10 MG TABLET GT SCH (10:53)
[2020-02-19] MEDS: ISOSORBIDE DINITRATE (20MG) 20 MG TABLET GT SCH ×3 (10:53→17:45)
[2020-02-19] MEDS: FAMOTIDINE (20 MG) 20 MG TABLET GT SCH (10:53)
[2020-02-19] MEDS: DOXAZOSIN MESYLATE (4 MG) 4 MG TABLET GT SCH ×2 (10:53→21:54)
[2020-02-19] MEDS: LORATADINE 10 MG TABLET GT SCH (10:53)
[2020-02-19] MEDS: NEOMY SULF/BACITRAC ZN/POLY 15 GM TUBE TP SCH ×2 (10:54→21:55)
[2020-02-19] MEDS: Z GUARD REMEDY 2 OZ OINT TP SCH ×2 (10:55→21:55)
[2020-02-19] MEDS: VIT B CMPLX 3/FA/VIT C/BIOTIN 1 TAB TABLET GT SCH (10:57)
[2020-02-19] MEDS: ACETAMINOPHEN 650 MG/20.3 ML UDC GT PRN (11:25)
[2020-02-19 12:36] LABS: ABG BASE EXCESS 1.2 mmol/L; ABG OXYGEN SATURATION 81.8 % (92.0-98.5); ABG PCO2 41.3 mmHg (35.0-45.0); ABG PH 7.414 (7.350-7.450); ABG PO2 46.8 mmHg (75.0-100.0); AaDO2 263.2 mmHg; MetHb 0.7 % (0.0-1.5); O2Hb 80.4 % (94.0-97.0); SITE, ABG Right Radial
[2020-02-19] MEDS: CEFEPIME 1 GM in IV D5W 50 ML IV SCH (13:52)
[2020-02-19] MEDS ORDERED: VANCOMYCIN 500 MG in IV D5W 100 ML IV PRN (15:30)
[2020-02-19] MEDS ORDERED: FEE PK DOSING 1 MIN EA MC ONE (15:41)
[2020-02-19] MEDS ORDERED: VANCOMYCIN 0.75 GM in IV D5W 250 ML IV ONE (16:00)
[2020-02-19] MEDS: INSULIN REGULAR, HUMAN 100 UNIT/ML 3 ML VIAL SQ PRN (18:11)
--- NOTE | 2020-02-19 19:30 | NUR ---
PT HAD AN UNEVENTFUL SHIFT. PT HAD 1 LARGE BM THIS SHIFT. PT CHECKED ON HOURLY AND PRN BY NURSING STAFF.
--- NOTE | 2020-02-19 19:35 | NUR ---
SIDEROGRAPHIST OPENING NOTE, RECEIVED PATIENT WITH TRACH ON VENTILATOR AND SEDATED, TOLERATING WELL NO SOB OR ACUTE DISTRESS NOTED AT THIS TIME. RESPONSIVE TO PAIN STIMULI, RESPIRATION EVEN AND UNLABORED, SPO2 AT 100% VIA MECHANICAL VENTILATOR SETTINGS ORDERED. TRACH IS PORTEX #7, SR 68 ON BEDSIDE MONITOR. G-TUBE INTACT AND NEPRO RUNNING AT 45ML/HR, NO RESIDUAL AND FLUSHING WELL. CANNON DRAINING VIA GRAVITY WITH DARK CLOUDY/ YELLOW URINE OUTPUT. RIGHT HAND #22G, AND LT HAND #22, INTACT AND PATENT. TOM MIDLINE RUNNING WITH DIPRIVAN @45MCG/KG/MIN. AND TKO INFUSING WELL. ALL SAFETY PRECAUTIONS APPLIED. BED IN LOW/LOCKED POSITION, CALL LIGHT WITHIN REACH. WILL CONTINUE TO MONITOR PATIENT THROUGHOUT SHIFT.
[2020-02-19] MEDS: PIPERACILLIN /TAZOBACTAM 2.25 G in IV D5W 50 ML IV SCH (21:56)
[2020-02-19 22:14] LABS: APPEARANCE,URINE TURBID (CLEAR); BILIRUBIN,URINE SMALL (NEGATIVE); BLOOD, URINE MODERATE Ery/uL (NEGATIVE); COLOR,URINE YELLOW (YELLOW); KETONES,URINE TRACE (NEGATIVE); LEUKOCYTE ESTERASE ,URINE MODERATE (NEGATIVE); NITRITE, URINE NEGATIVE (NEGATIVE); PH,URINE 5.5 (5.0-8.0); PROTEIN,URINE >=300 mg/dl (NEGATIVE); UGLUCOSE NEGATIVE (NEGATIVE); UROBILINOGEN,URINE 0.2 EU/dL (0.2)
[2020-02-19 22:26] LABS: BACTERIA,URINE Moderate /HPF (None Seen); SQUAMOUS EPITHELIAL CELL,UR Few /HPF (None Seen); WBC,URINE TOO NUMEROUS TO COUN /HPF (0-3)
[2020-02-19 22:27] LABS: YEAST,URINE Few /HPF (None Seen)
[2020-02-20] VITALS (24 sets, daily range): BP systolic 99–149; BP diastolic 42–75
[2020-02-20] MEDS: BLOOD SUGAR DIAGNOSTIC 1 EACH STRIP IN SCH ×4 (00:22→17:43)
[2020-02-20] MEDS: INSULIN REGULAR, HUMAN 100 UNIT/ML 3 ML VIAL SQ PRN ×3 (00:28→17:48)
[2020-02-20] MEDS: NEPRO 1,000 ML BOTTLE GT PRN ×2 (00:31→23:41)
[2020-02-20] MEDS: ALBUTEROL FS 2.5 MG/0.5 ML VIAL.NEB IH SCH ×4 (01:32→20:22)
[2020-02-20] MEDS: IPRATROPIUM NEB FS 0.5 MG/2.5 ML AMPUL.NEB IH SCH ×4 (01:32→20:22)
[2020-02-20] MEDS: PROPOFOL 100 ML IV PRN ×2 (03:54→09:25)
[2020-02-20] MEDS: LABETALOL HCL (100MG) 100 MG TABLET GT SCH ×3 (05:00→20:50)
[2020-02-20 05:15] LABS: BASOPHILS # (AUTO) 0.1 /CMM (0.0-0.2); BASOPHILS % (AUTO) 0.6 % (0.0-2.0); EOSINOPHILS % (AUTO) 15.3 % (0.0-6.0); HEMATOCRIT 23 % (39-51); HEMOGLOBIN 7.5 g/dL (13.5-17.5); LYMPHOCYTES # (AUTO) 0.8 /CMM (0.8-4.8); LYMPHOCYTES % (AUTO) 6.3 % (20.0-44.0); MEAN CORPUSCULAR HGB CONC 33 g/dl (31.0-36.0); MEAN CORPUSCULAR VOLUME 90 fL (80-96); MONOCYTES # (AUTO) 1.4 /CMM (0.1-1.30); MONOCYTES % (AUTO) 11.4 % (2.0-12.0); NEUTROPHILS # (AUTO) 8.2 /CMM (1.8-8.9); NEUTROPHILS % (AUTO) 66.4 % (43.0-81.0); PLATELET COUNT (AUTO) 184 /CMM (150-450); RED BLOOD CELL COUNT(AUTO) 2.54 MIL/uL (4.5-6.0); WHITE BLOOD COUNT (AUTO) 12.3 K/uL (4.3-11.0)
[2020-02-20] MEDS: PIPERACILLIN /TAZOBACTAM 2.25 G in IV D5W 50 ML IV SCH ×3 (05:24→20:52)
[2020-02-20] MEDS: CLONIDINE HCL 0.1 MG TABLET GT SCH ×3 (05:25→20:50)
[2020-02-20] MEDS: METOCLOPRAMIDE HCL 10 MG TABLET GT SCH ×3 (05:25→20:50)
--- NOTE | 2020-02-20 05:26 | NUR ---
SCHEDULES TRANDATE/LABETALOL 600MG @0500 WAS NOT ADMINISTERED DUE TO LOW BP OF 108/53 HR OF 68. OTHER BP MED CATAPRES/CLONIDINE 0.3MG WAS ADMINISTERED @THIS TIME. WILL CONTINUE TO MONITOR BP CLOSELY.
[2020-02-20 05:39] LABS: CALCIUM, SERUM 8.2 mg/dL (8.5-10.1); POTASSIUM 3.6 mmol/L (3.5-5.1)
--- NOTE | 2020-02-20 07:20 | NUR ---
BUSINESS EDUCATION INSTRUCTOR OPENING NOTE RECEIVED BEDSIDE REPORT. PATIENT IS IN BED WITH TRACH ON VENTILATOR AND SEDATED, TOLERATING SETTINGS WELL, NO SIGNS OF RESPIRATORY DISTRESS NOTED. G-TUBE INTACT, PATENT, NEPRO RUNNING AT 45ML/HR, NO RESIDUAL AND FLUSHING WELL. CANNON DRAINING VIA GRAVITY WITH DARK CLOUDY/ YELLOW URINE OUTPUT. RIGHT HAND #22G, AND LT HAND #22, INTACT AND PATENT. TOM MIDLINE RUNNING WITH DIPRIVAN @45MCG/KG/MIN. ALL SAFETY PRECAUTIONS APPLIED. BED IN LOW/LOCKED POSITION, CALL LIGHT WITHIN REACH.
--- NOTE | 2020-02-20 07:33 | NUR ---
MUSIC ORCHESTRATOR CLOSING NOTE, PATIENT IS IN BED WITH TRACH ON VENTILATOR AND SEDATED, TOLERATING WELL NO SOB OR ACUTE DISTRESS NOTED AT THIS TIME. RESPONSIVE TO PAIN STIMULI, RESPIRATION EVEN AND UNLABORED, SPO2 AT 100% VIA MECHANICAL VENTILATOR SETTINGS ORDERED. TRACH IS PORTEX #7, SR 68 ON BEDSIDE MONITOR. G-TUBE INTACT AND NEPRO RUNNING AT 45ML/HR, NO RESIDUAL AND FLUSHING WELL. CANNON DRAINING VIA GRAVITY WITH DARK CLOUDY/ YELLOW URINE OUTPUT. RIGHT HAND #22G, AND LT HAND #22, INTACT AND PATENT. TOM MIDLINE RUNNING WITH DIPRIVAN @45MCG/KG/MIN. AND TKO INFUSING WELL. ALL SAFETY PRECAUTIONS APPLIED. BED IN LOW/LOCKED POSITION, CALL LIGHT WITHIN REACH. ENDORSED THE PATIENT TO AM RN FOR SALLY.
--- NOTE | 2020-02-20 08:30 | NUR ---
RECEIVED ORDER FROM DR. SARAH TO TITRATE PT OFF OF DIPROVAN
[2020-02-20] MEDS: FAMOTIDINE (20 MG) 20 MG TABLET GT SCH (08:41)
[2020-02-20] MEDS: DOCUSATE SODIUM LIQ 100 MG/10 ML UDC GT SCH ×2 (08:41→20:49)
[2020-02-20] MEDS: FERROUS SULFATE UDC 300 MG/5 ML UDC GT SCH (08:41)
[2020-02-20] MEDS: AMLODIPINE BESYLATE 10 MG TABLET GT SCH (08:41)
[2020-02-20] MEDS: VIT B CMPLX 3/FA/VIT C/BIOTIN 1 TAB TABLET GT SCH (08:41)
[2020-02-20] MEDS: LORATADINE 10 MG TABLET GT SCH (08:42)
[2020-02-20] MEDS: LACTOBACILLUS RHAMNOSUS GG 1 EACH CAP.SPRINK GT SCH ×2 (08:42→16:24)
[2020-02-20] MEDS: ISOSORBIDE DINITRATE (20MG) 20 MG TABLET GT SCH ×3 (08:42→16:25)
[2020-02-20] MEDS: CHLORHEXIDINE GLUCONATE 15 ML UDC MM SCH (08:43)
[2020-02-20] MEDS: MINOXIDIL (2.5MG) 2.5 MG TABLET GT SCH ×2 (08:43→16:25)
[2020-02-20] MEDS: DOXAZOSIN MESYLATE (4 MG) 4 MG TABLET GT SCH ×2 (08:44→20:50)
[2020-02-20] MEDS: Z GUARD REMEDY 2 OZ OINT TP SCH ×2 (08:45→20:52)
[2020-02-20] MEDS: NEOMY SULF/BACITRAC ZN/POLY 15 GM TUBE TP SCH ×2 (08:45→20:52)
[2020-02-20] MEDS: LORAZEPAM INJ 2 MG/ML VIAL IVP PRN (09:33)
--- NOTE | 2020-02-20 19:30 | NUR ---
ADDING MACHINE OPERATOR OPENING NOTE RECEIVED BEDSIDE REPORT. PATIENT IS IN BED WITH TRACH ON VENTILATOR AND SEDATED, TOLERATING SETTINGS WELL, NO SIGNS SOB OR RESPIRATORY DISTRESS NOTED. G-TUBE INTACT, PATENT, NEPRO RUNNING AT 45ML/HR, NO RESIDUAL AND FLUSHING WELL. CANNON DRAINING VIA GRAVITY WITH DARK CLOUDY/ YELLOW URINE OUTPUT. RIGHT HAND #22G, AND LT HAND #22, INTACT AND PATENT. TOM MIDLINE PATENT AND INTACT. NO S/S OF INFILTRATION NOTED. ALL SAFETY PRECAUTIONS APPLIED. BED IN LOW/LOCKED POSITION, CALL LIGHT WITHIN REACH. WILL CONTINUE TO MONITOR.
[2020-02-21] VITALS (25 sets, daily range): BP systolic 112–165; BP diastolic 56–84
[2020-02-21] MEDS: BLOOD SUGAR DIAGNOSTIC 1 EACH STRIP IN SCH ×4 (00:18→18:15)
[2020-02-21] MEDS: INSULIN REGULAR, HUMAN 100 UNIT/ML 3 ML VIAL SQ PRN ×4 (00:20→18:39)
[2020-02-21 00:31] LABS: ABG BASE EXCESS 1.1 mmol/L; ABG OXYGEN SATURATION 92.2 % (92.0-98.5); ABG PCO2 39.4 mmHg (35.0-45.0); ABG PH 7.428 (7.350-7.450); ABG PO2 65.6 mmHg (75.0-100.0); AaDO2 282.7 mmHg; COHb 1.1 % (0.5-1.5); MetHb 0.5 % (0.0-1.5); O2Hb 90.7 % (94.0-97.0); PEEP,BG 8 cm H2O; SITE, ABG Left Radial; VENT MODE, BG VENT AC; VT, ABG 500 mL
[2020-02-21] MEDS: ALBUTEROL FS 2.5 MG/0.5 ML VIAL.NEB IH SCH ×4 (01:39→19:40)
[2020-02-21] MEDS: IPRATROPIUM NEB FS 0.5 MG/2.5 ML AMPUL.NEB IH SCH ×4 (01:39→19:40)
[2020-02-21] MEDS: CLONIDINE HCL 0.1 MG TABLET GT SCH ×3 (05:02→21:16)
[2020-02-21] MEDS: PIPERACILLIN /TAZOBACTAM 2.25 G in IV D5W 50 ML IV SCH ×3 (05:02→22:04)
[2020-02-21] MEDS: METOCLOPRAMIDE HCL 10 MG TABLET GT SCH ×3 (05:02→21:16)
[2020-02-21] MEDS: LABETALOL HCL (100MG) 100 MG TABLET GT SCH ×3 (05:03→22:04)
[2020-02-21 05:16] LABS: CALCIUM, SERUM 8.4 mg/dL (8.5-10.1); CREATININE 3.2 mg/dL (0.6-1.3); POTASSIUM 3.2 mmol/L (3.5-5.1)
--- NOTE | 2020-02-21 07:00 | NUR ---
TELEGRAPH SERVICE RATER CLOSING NOTE, PATIENT IS IN BED WITH TRACH ON VENTILATOR AND SEDATED, TOLERATING SETTINGS WELL, NO SIGNS SOB OR RESPIRATORY DISTRESS NOTED. G-TUBE INTACT, PATENT, NEPRO RUNNING AT 45ML/HR, NO RESIDUAL AND FLUSHING WELL. CANNON DRAINING VIA GRAVITY WITH DARK CLOUDY/ YELLOW URINE OUTPUT. RIGHT HAND #22G, AND LT HAND #22, INTACT AND PATENT. TOM MIDLINE PATENT AND INTACT. PATIENT HAS RIGHT FEMORAL HD CATH. NO S/S OF INFILTRATION NOTED. ALL SAFETY PRECAUTIONS APPLIED. BED IN LOW/LOCKED POSITION, CALL LIGHT WITHIN REACH. WILL ENDORSED THE PATIENT TO AM RN FOR SALLY.
[2020-02-21] MEDS: HYDROCODONE/APAP 5/325MG 1 EACH TABLET PO PRN ×2 (09:09→18:12)
[2020-02-21] MEDS: LACTOBACILLUS RHAMNOSUS GG 1 EACH CAP.SPRINK GT SCH ×2 (09:10→18:13)
[2020-02-21] MEDS: LORATADINE 10 MG TABLET GT SCH (09:10)
[2020-02-21] MEDS: FERROUS SULFATE UDC 300 MG/5 ML UDC GT SCH (09:10)
[2020-02-21] MEDS: DOCUSATE SODIUM LIQ 100 MG/10 ML UDC GT SCH ×2 (09:11→21:15)
[2020-02-21] MEDS: VIT B CMPLX 3/FA/VIT C/BIOTIN 1 TAB TABLET GT SCH (09:11)
[2020-02-21] MEDS: CHLORHEXIDINE GLUCONATE 15 ML UDC MM SCH (09:11)
[2020-02-21] MEDS: FAMOTIDINE (20 MG) 20 MG TABLET GT SCH (09:12)
[2020-02-21] MEDS: Z GUARD REMEDY 2 OZ OINT TP SCH ×2 (09:12→21:25)
[2020-02-21] MEDS: NEOMY SULF/BACITRAC ZN/POLY 15 GM TUBE TP SCH ×2 (09:13→21:24)
[2020-02-21] MEDS: MINOXIDIL (2.5MG) 2.5 MG TABLET GT SCH ×2 (09:46→17:00)
[2020-02-21] MEDS: ISOSORBIDE DINITRATE (20MG) 20 MG TABLET GT SCH ×3 (09:47→17:00)
[2020-02-21] MEDS: DOXAZOSIN MESYLATE (4 MG) 4 MG TABLET GT SCH ×2 (09:47→21:16)
[2020-02-21] MEDS: AMLODIPINE BESYLATE 10 MG TABLET GT SCH (09:48)
--- NOTE | 2020-02-21 10:30 | NUR ---
RN NOTE ASKED DR MARTINEZ ABOUT HD TODAY, HE WILL CHECK AND LET ME KNOW WHEN WILL BE NEXT HD, SO I KNOW WHEN TO GIVE VANCOMYCIN.
--- NOTE | 2020-02-21 11:00 | NUR ---
rn note per pharmacy ok to give vancomycin now or if pt will have hd, then after hd. will follow up.
--- NOTE | 2020-02-21 11:18 | NUR ---
PER DR MARTINEZ PT WILL HAVE HD TODAY, WILL HOLD OFF VANCOMYCIN FOR NOW AND ADMINISTER AFTER HD.
[2020-02-21] MEDS: ACETAMINOPHEN 650 MG/20.3 ML UDC GT PRN (13:22)
--- NOTE | 2020-02-21 18:27 | NUR ---
RT end of the shift report. pt. 34 Y old male rec. @0700 am awake and responsive, trach'd Portex # 7 on vent with noted settings, alarms are set and functional. equal chest rise noted. bilaterally rales b/s noted. sux'd for minimal amt. marc secretions. tx's given inline no adverse reaction noted. no vent changes t/o shift. GIS ADMINISTRATOR done, HME changed, pt. remain stable. vent into red out let and AMBU bag remain at the bedside. report will pass to PM shift. Addendum: 02/21/20 at 1833 by SHAWN CASTILLO RT Amended: Links added.
--- NOTE | 2020-02-21 19:05 | NUR ---
RN OPENING NOTES: PATIENT IN BED, EYES OPEN, AND ABLE TO ANSWER SIMPLE YES/NO QUESTIONS THROUGH THUMBS UP/DOWN. NO RESPIRATORY DISTRESS. ON VENT VIA TRACH, TOLERATING CURRENT SETTINGS. NO S/S OF PAIN. NO FACIAL GRIMACING. DIALYSIS NURSE AT BEDSIDE, ALMOST OVER, TOLERATING WELL. TOM MIDLINE AND RIGHT WRIST G22 C/D/I, FLUSHING WELL. (R) FEMORAL HD CATH INTACT. PATIENT ON GT FEEDING, NEPRO AT 45 MLS/HR, MINIMAL RESIDUAL. HOB ELEVATED. CANNON INTACT AND PATENT, DRAINING CLOUDY URINE WITH SEDIMENTS. SAFETY PRECAUTIONS IMPLEMENTED. BED LOCKED AND LOW POSITION. WILL TURN AND REPOSITION Q2H. CALL LIGHT WITHIN REACH. WILL CONT. TO MONITOR FOR CHANGES.
--- NOTE | 2020-02-21 19:06 | NUR ---
RN NOTE BP MEDS HELD DUE TO PENDING HD, 1700 BP MEDS HELD ALSO DUE TO HD AT THIS TIME. HD ALMOST OVER, PT TOLERATED WELL, 2.2L OUT. WILL GIVE VANCOMYCIN POST HD. ENDORSE TO REGRADER.
--- NOTE | 2020-02-21 20:00 | NUR ---
RN NOTE: SPOKE WITH PHARMACIST. PER PHARMACIST, OK TO GIVE IV VANCO POST HD, AWARE THAT LATEST TROUGH LEVEL YESTERDAY 02/19 16.
--- NOTE | 2020-02-21 21:15 | NUR ---
RN NOTE: PATIENT IS POST-HD AND HAS 3 SCHEDULED BP MEDS AT THE SAME TIME. WILL GIVE LABETALOL AROUND 10PM. BP 137/78, HR 86 AT THIS TIME. WILL CONT. TO MONITOR.
--- NOTE | 2020-02-21 22:40 | NUR ---
RN NOTE: PAGED DR. MONIQUE REGARDING PATIENT'S K+ 3.2, AWAITING FOR CALL BACK. Addendum: 02/21/20 at 2300 by MARTHA WALTERS RN CHARGE NURSE AWARE. Addendum: 02/21/20 at 2301 by MARTHA WALTERS RN AT 2299, DR. MONIQUE CALLED BACK, MADE AWARE OF PATIENT'S K+ 3.2 AND DIALYSIS WAS DONE TODAY, NO NEW ORDERS.
[2020-02-22] VITALS (25 sets, daily range): BP systolic 108–148; BP diastolic 52–81
[2020-02-22] MEDS: BLOOD SUGAR DIAGNOSTIC 1 EACH STRIP IN SCH ×4 (00:40→17:47)
[2020-02-22] MEDS: INSULIN REGULAR, HUMAN 100 UNIT/ML 3 ML VIAL SQ PRN ×4 (00:41→17:51)
[2020-02-22] MEDS: ALBUTEROL FS 2.5 MG/0.5 ML VIAL.NEB IH SCH ×4 (01:30→19:37)
[2020-02-22] MEDS: IPRATROPIUM NEB FS 0.5 MG/2.5 ML AMPUL.NEB IH SCH ×4 (01:30→19:37)
[2020-02-22] MEDS: HYDROCODONE/APAP 5/325MG 1 EACH TABLET PO PRN (03:59)
[2020-02-22 04:42] LABS: BASOPHILS # (AUTO) 0.1 /CMM (0.0-0.2); BASOPHILS % (AUTO) 0.4 % (0.0-2.0); EOSINOPHILS % (AUTO) 6.5 % (0.0-6.0); HEMATOCRIT 23 % (39-51); HEMOGLOBIN 7.6 g/dL (13.5-17.5); LYMPHOCYTES # (AUTO) 0.6 /CMM (0.8-4.8); LYMPHOCYTES % (AUTO) 3.5 % (20.0-44.0); MEAN CORPUSCULAR HGB CONC 33 g/dl (31.0-36.0); MEAN CORPUSCULAR VOLUME 90 fL (80-96); MONOCYTES # (AUTO) 1.7 /CMM (0.1-1.30); MONOCYTES % (AUTO) 10.3 % (2.0-12.0); NEUTROPHILS # (AUTO) 13.3 /CMM (1.8-8.9); NEUTROPHILS % (AUTO) 79.3 % (43.0-81.0); PLATELET COUNT (AUTO) 197 /CMM (150-450); RED BLOOD CELL COUNT(AUTO) 2.58 MIL/uL (4.5-6.0); WHITE BLOOD COUNT (AUTO) 16.7 K/uL (4.3-11.0)
[2020-02-22 05:16] LABS: CALCIUM, SERUM 8.5 mg/dL (8.5-10.1); CREATININE 2.5 mg/dL (0.6-1.3); MAGNESIUM 2.2 mg/dL (1.8-2.4); PHOSPHORUS 2.9 mg/dL (2.5-4.9); POTASSIUM 3.1 mmol/L (3.5-5.1)
[2020-02-22] MEDS: METOCLOPRAMIDE HCL 10 MG TABLET GT SCH ×3 (05:27→21:00)
[2020-02-22] MEDS: LABETALOL HCL (100MG) 100 MG TABLET GT SCH ×3 (05:27→21:00)
[2020-02-22] MEDS: CLONIDINE HCL 0.1 MG TABLET GT SCH ×3 (05:27→21:00)
[2020-02-22] MEDS: PIPERACILLIN /TAZOBACTAM 2.25 G in IV D5W 50 ML IV SCH ×3 (05:28→21:14)
[2020-02-22] MEDS: NEPRO 1,000 ML BOTTLE GT PRN (05:39)
--- NOTE | 2020-02-22 06:49 | NUR ---
RN CLOSING NOTES: PATIENT IN BED, ASLEEP, BUT EASILY AROUSABLE TO VERBAL AND TACTILE STIMULI. NO RESPIRATORY DISTRESS. ON VENT VIA TRACH, TOLERATING CURRENT SETTINGS. TOM MIDLINE AND RIGHT WRIST G22 C/D/I, FLUSHING WELL. (R) FEMORAL HD CATH INTACT. PATIENT ON GT FEEDING, NEPRO AT 45 MLS/HR, NO RESIDUAL AT THIS TIME. HOB ELEVATED. CANNON INTACT AND PATENT, DRAINING CLOUDY URINE WITH SEDIMENTS. SAFETY PRECAUTIONS IMPLEMENTED. BED LOCKED AND IN LOW POSITION. TURNED AND REPOSITIONED Q2H. PATIENT IN NO ACUTE DISTRESS DURING SHIFT. CALL LIGHT WITHIN REACH. WILL ENDORSE TO AM SHIFT NURSE FOR CONTINUITY OF CARE. Addendum: 02/22/20 at 0717 by MARTAH WALTERS RN PATIENT WILL HAVE THORACENTESIS OF RIGHT LUNG TODAY. CONSENT SIGNED. ALSO PENDING PSYCH CONSULT. ENDORSED TO AM SHIFT NURSE FOR CONTINUITY OF CARE.
--- NOTE | 2020-02-22 08:00 | NUR ---
ICU/RN INITIAL NOTES,AM RECEIVED BEDSIDE REPORT FROM NIGHT NURSE. PT OPENS EYES AND FOLLOWS SIMPLE COMMANDS. TRACH TO VENT WITH SETTINGS ORDERED. NRS ON TELE. CANNON CATH IN PLACE, DRAINING MINIMAL URINE. GTUBE FEEDING INFUSING, TOLERATING WELL, NO RESIDUAL. PT SCHEDULED FOR RIGHT THORACENTESIS THIS AM. CONSENT IN CHART. ALL NEEDS WILL BE ATTENDED TO, SAFETY MEASURES TAKEN, BED IN LOW POSITION SIDE RAILS UP, CALL LIGHT WITHIN REACH. WILL CONTINUE CARE. PT TURNED AND REPOSITIONED.
[2020-02-22 09:09] LABS: ABG OXYGEN SATURATION 92.4 % (92.0-98.5); ABG PH 7.424 (7.350-7.450); ABG PO2 67.3 mmHg (75.0-100.0); AaDO2 238.6 mmHg; COHb 1.3 % (0.5-1.5); MetHb 0.7 % (0.0-1.5); O2Hb 90.6 % (94.0-97.0); PEEP,BG 5 cm H2O; SITE, ABG Left Radial; VT, ABG 500 mL
[2020-02-22] MEDS: LACTOBACILLUS RHAMNOSUS GG 1 EACH CAP.SPRINK GT SCH ×2 (09:12→17:44)
[2020-02-22] MEDS: VIT B CMPLX 3/FA/VIT C/BIOTIN 1 TAB TABLET GT SCH (09:12)
[2020-02-22] MEDS: CHLORHEXIDINE GLUCONATE 15 ML UDC MM SCH (09:12)
[2020-02-22] MEDS: DOCUSATE SODIUM LIQ 100 MG/10 ML UDC GT SCH ×2 (09:12→21:00)
[2020-02-22] MEDS: FERROUS SULFATE UDC 300 MG/5 ML UDC GT SCH (09:12)
[2020-02-22] MEDS: FAMOTIDINE (20 MG) 20 MG TABLET GT SCH (09:13)
[2020-02-22] MEDS: LORATADINE 10 MG TABLET GT SCH (09:14)
[2020-02-22] MEDS: Z GUARD REMEDY 2 OZ OINT TP SCH ×2 (09:15→21:15)
[2020-02-22] MEDS: NEOMY SULF/BACITRAC ZN/POLY 15 GM TUBE TP SCH ×2 (09:15→21:15)
--- NOTE | 2020-02-22 09:50 | NUR ---
ICU/RN: RIGHT THORACENTESIS DONE, 1.5LITERS OUT. CHEST XRAY PENDING.
[2020-02-22] MEDS: ISOSORBIDE DINITRATE (20MG) 20 MG TABLET GT SCH ×3 (10:24→17:46)
[2020-02-22] MEDS: DOXAZOSIN MESYLATE (4 MG) 4 MG TABLET GT SCH ×2 (10:24→21:00)
[2020-02-22] MEDS: MINOXIDIL (2.5MG) 2.5 MG TABLET GT SCH ×2 (10:24→17:00)
[2020-02-22] MEDS: AMLODIPINE BESYLATE 10 MG TABLET GT SCH (10:25)
[2020-02-22] MEDS: POTASSIUM CL. PREMIX PERIPHER. 50 ML IV SCH ×4 (13:44→18:07)
--- NOTE | 2020-02-22 17:44 | NUR ---
RT end of the shift report. pt. 34 Y old male rec. @0700 am awake and responsive, trach'd Portex # 7 on vent with noted settings, alarms are set and functional. equal chest rise noted. bilaterally rales b/s noted. sux'd for minimal amt. marc secretions. tx's given Q6 inline no adverse reaction noted. no vent changes t/o shift. TECHNICIAN HELPER INSTRUMENT done, HME changed, pt. remain stable. vent into red out let and AMBU bag remain at the bedside. report will pass to PM shift. Addendum: 02/22/20 at 1745 by SHAWN CASTILLO RT Amended: Links added. Addendum: 02/22/20 at 1749 by SHAWN CASTILLO RT @ 0830 am vent changes done per dr. Kade doty ( 50%,+5) and ABG @ 0900 post ABG no changes. AMADO Jung notified.
--- NOTE | 2020-02-22 19:01 | NUR ---
ICU/RN ENDING NOTES,AM BEDSIDE REPORT WILL BE ENDORSED TO NIGHT NURSE FOR SALLY. PT TRAC TO VENT WITH SETTINGS ORDERED. PT S/P THORACENTESIS, FLUID SENT TO LAB FOR CYTOLOGY. ALL NEEDS ATTENDED TO, SAFETY MEASURES TAKEN, BED IN LOW POSITION, SIDE RAILS UP, CALL LIGHT WITHIN REACH.
--- NOTE | 2020-02-22 19:15 | NUR ---
ICU/RN OPENING NOTE RECEIVED PATIENT IN BED WITH TRACH WITH NO SIGNS OF ANY DISTRESS AND NO SIGN OF SOB. PATIENT IS ABLE TO FOLLOW COMMANDS AND RESPOND TO QUESTIONS BY NODDING. RESPIRATIONS EVEN AND UNLABORED, SPO2 @ 98% VIA MECHANICAL VENTILATOR SETTINGS ORDERED. PORTEX 7 SINUS RHYTHM HR 80 ON BEDSIDE MONITOR. GTUBE FEEDINGS RUNNING WITH NEPRO AT 45CC/HR WITH NO RESIDUAL. FC DRAINING VIA GRAVITY WITH MADAN OUTPUT. RIGHT FEMORAL HD CATH PATENT, RIGHT WRIST #22 PATENT AND TOM MIDLINE PATENT WITH NS TKO INFUSING WELL. ALL NEEDS ATTENDED. ALL SAFETY PRECAUTIONS APPLIED. WILL CONTINUE TO MONITOR PATIENT THROUGHOUT SHIFT.
[2020-02-22] MEDS: ACETAMINOPHEN 650 MG/20.3 ML UDC GT PRN (21:00)
[2020-02-23] VITALS (16 sets, daily range): BP systolic 112–161; BP diastolic 55–89
[2020-02-23] MEDS: INSULIN REGULAR, HUMAN 100 UNIT/ML 3 ML VIAL SQ PRN ×4 (00:23→23:32)
[2020-02-23] MEDS: BLOOD SUGAR DIAGNOSTIC 1 EACH STRIP IN SCH ×5 (00:29→23:31)
[2020-02-23] MEDS: ALBUTEROL FS 2.5 MG/0.5 ML VIAL.NEB IH SCH ×4 (01:32→19:20)
[2020-02-23] MEDS: IPRATROPIUM NEB FS 0.5 MG/2.5 ML AMPUL.NEB IH SCH ×4 (01:32→19:20)
[2020-02-23 04:27] LABS: BASOPHILS # (AUTO) 0.1 /CMM (0.0-0.2); BASOPHILS % (AUTO) 0.6 % (0.0-2.0); EOSINOPHILS % (AUTO) 6.9 % (0.0-6.0); LYMPHOCYTES # (AUTO) 0.8 /CMM (0.8-4.8); LYMPHOCYTES % (AUTO) 6.8 % (20.0-44.0); MEAN CORPUSCULAR HGB CONC 33 g/dl (31.0-36.0); MEAN CORPUSCULAR VOLUME 90 fL (80-96); MONOCYTES # (AUTO) 2.2 /CMM (0.1-1.30); NEUTROPHILS # (AUTO) 8.4 /CMM (1.8-8.9); NEUTROPHILS % (AUTO) 67.7 % (43.0-81.0); PLATELET COUNT (AUTO) 186 /CMM (150-450); RED BLOOD CELL COUNT(AUTO) 2.27 MIL/uL (4.5-6.0); WHITE BLOOD COUNT (AUTO) 12.4 K/uL (4.3-11.0)
[2020-02-23 04:43] LABS: CALCIUM, SERUM 8.4 mg/dL (8.5-10.1); CREATININE 3.4 mg/dL (0.6-1.3); MAGNESIUM 2.4 mg/dL (1.8-2.4); POTASSIUM 3.6 mmol/L (3.5-5.1)
[2020-02-23] MEDS: METOCLOPRAMIDE HCL 10 MG TABLET GT SCH ×3 (04:56→23:21)
[2020-02-23] MEDS: LABETALOL HCL (100MG) 100 MG TABLET GT SCH ×3 (04:56→23:17)
[2020-02-23] MEDS: CLONIDINE HCL 0.1 MG TABLET GT SCH ×3 (04:56→23:14)
[2020-02-23] MEDS: PIPERACILLIN /TAZOBACTAM 2.25 G in IV D5W 50 ML IV SCH ×3 (04:57→23:30)
[2020-02-23 05:05] LABS: HEMOGLOBIN 6.8 g/dL (13.5-17.5)
[2020-02-23 05:06] LABS: HEMATOCRIT 20 % (39-51)
[2020-02-23 05:33] LABS: EOSINOPHILS % (MANUAL) 1 % (0-4); LYMPHOCYTES % (MANUAL) 4 % (16-48); MONOCYTES % (MANUAL) 10 % (0-11.0); NEUTROPHILS % (MANUAL) 85 (42-76)
--- NOTE | 2020-02-23 05:50 | NUR ---
ICU/RN PAGED DR CAMARILLO REGARDING CRITICAL LABS. WILL CONTINUE TO MONITOR PATIENT AND AWAIT FOR FURTHER ORDERS.
--- NOTE | 2020-02-23 06:10 | NUR ---
ICU/RN PAGED DR. MONIQUE REGARDING CRITICAL LAB OG HGB OF 6.8 AND HCT OF 20. WILL WAIT FOR FURTHER ORDERS AND CONTINUE TO MONITOR PATIENT.
--- NOTE | 2020-02-23 06:33 | NUR ---
ICU/RN NOTE REPORT GIVEN TO DEVIN, TO BE TRANSFERRED TO [facility].
--- NOTE | 2020-02-23 07:20 | NUR ---
RN NOTE RECEIVED PATIENT ON BED FROM ICU IN ROOM 116-2, TRACH, VENT DEPENDENT, NO DISTRESS NOTED, PATIENT IS ABLE TO FOLLOW COMMANDS AND RESPOND TO QUESTIONS BY NODDING. RESPIRATIONS EVEN AND UNLABORED, SPO2 WNL, TOLERATING CURRENT VENT SETTING WELL, ON TELE SR HR IN 70'S , GTUBE FEEDINGS RUNNING WITH NEPRO AT 45CC/HR WITH NO RESIDUAL. FC DRAINING VIA GRAVITY WITH MADAN OUTPUT. RIGHT FEMORAL HD CATH SITE CLEAN, DRY AND INTACT, RIGHT WRIST #22 PATENT AND TOM MIDLINE PATENT WITH NS TKO INFUSING WELL.SR UP x3, CALL LIGHT WITHIN EASY REACH, BED LOCKED AND IN LOWEST POSITION, CONTINUE TO MONITOR .
--- NOTE | 2020-02-23 07:21 | NUR ---
ICU/RN NOTE PATIENT TRANSFERRED TO [facility]. NO SIGN OF DISTRESS.
[2020-02-23] MEDS: FERROUS SULFATE UDC 300 MG/5 ML UDC GT SCH (08:25)
[2020-02-23] MEDS: FAMOTIDINE (20 MG) 20 MG TABLET GT SCH (08:25)
[2020-02-23] MEDS: LACTOBACILLUS RHAMNOSUS GG 1 EACH CAP.SPRINK GT SCH ×2 (08:25→16:10)
[2020-02-23] MEDS: DOCUSATE SODIUM LIQ 100 MG/10 ML UDC GT SCH ×2 (08:25→23:15)
[2020-02-23] MEDS: DOXAZOSIN MESYLATE (4 MG) 4 MG TABLET GT SCH ×2 (08:26→23:13)
[2020-02-23] MEDS: LORATADINE 10 MG TABLET GT SCH (08:26)
[2020-02-23] MEDS: CHLORHEXIDINE GLUCONATE 15 ML UDC MM SCH (08:26)
[2020-02-23] MEDS: AMLODIPINE BESYLATE 10 MG TABLET GT SCH (08:26)
[2020-02-23] MEDS: MINOXIDIL (2.5MG) 2.5 MG TABLET GT SCH ×2 (08:27→16:10)
[2020-02-23] MEDS: ISOSORBIDE DINITRATE (20MG) 20 MG TABLET GT SCH ×3 (08:27→16:10)
[2020-02-23] MEDS: VIT B CMPLX 3/FA/VIT C/BIOTIN 1 TAB TABLET GT SCH (08:27)
[2020-02-23] MEDS: NEOMY SULF/BACITRAC ZN/POLY 15 GM TUBE TP SCH ×2 (08:28→23:25)
[2020-02-23] MEDS: Z GUARD REMEDY 2 OZ OINT TP SCH ×2 (08:29→23:25)
--- NOTE | 2020-02-23 08:41 | NUR ---
RN NOTES DR LUCY BULLARD REGARDING H/H 6.07/19
--- NOTE | 2020-02-23 10:35 | NUR ---
RN NOTES PT RECEIVING HD, BLOOD TRANSFUSION STARTED WHILE PT RECEIVING HD, VSS STABLE, CONTINUE TO MONITOR .
--- NOTE | 2020-02-23 12:00 | NUR ---
RN NOTES PT TOLERATED BLOOD TRANSFUSION WELL , VSS STABLE , CONTINUE TO MONITOR .
[2020-02-23] MEDS: NEPRO 1,000 ML BOTTLE GT PRN (14:57)
--- NOTE | 2020-02-23 18:00 | NUR ---
RN NOTES PT STABLE, TOLERATING TF WELL, NO RESIDUAL NOTED , VSS STABLE, TRACH CARE AND SUCTIONING DONE NEEDED THROUGHOUT THE SHIFT , NO SIGNIFICANT CHANGES NOTED ON THIS SHIFT, WILL ENDORSE TO METAL WIRE COATING OPERATOR NURSE FOR CONTINUITY OF CARE .
--- NOTE | 2020-02-23 19:32 | NUR ---
RT NOTE PT [id number]'D ON MECHANICAL VENT WITH MD ORDERED SETTINGS. VENT PLUGGED INTO RED OUTLET. AMBU BAG/ BACKUP TRACH AT BEDSIDE. NO SOB NOTED AT THIS TIME. WILL CONTINUE TO MONITOR CLOSELY Addendum: 02/23/20 at 1932 by MARTHA ARENAS RT Amended: Links added.
[2020-02-24] VITALS: BP 139/64
[2020-02-24] MEDS: IPRATROPIUM NEB FS 0.5 MG/2.5 ML AMPUL.NEB IH SCH ×4 (00:39→19:51)
[2020-02-24] MEDS: ALBUTEROL FS 2.5 MG/0.5 ML VIAL.NEB IH SCH ×4 (00:39→19:51)
[2020-02-24 04:00] VITALS: BP 130/60
[2020-02-24 06:26] LABS: BASOPHILS # (AUTO) 0.1 /CMM (0.0-0.2); BASOPHILS % (AUTO) 0.8 % (0.0-2.0); EOSINOPHILS % (AUTO) 6.1 % (0.0-6.0); HEMATOCRIT 22 % (39-51); HEMOGLOBIN 7.4 g/dL (13.5-17.5); LYMPHOCYTES # (AUTO) 0.9 /CMM (0.8-4.8); LYMPHOCYTES % (AUTO) 6.7 % (20.0-44.0); MEAN CORPUSCULAR HGB CONC 33 g/dl (31.0-36.0); MEAN CORPUSCULAR VOLUME 88 fL (80-96); MONOCYTES # (AUTO) 2.5 /CMM (0.1-1.30); NEUTROPHILS # (AUTO) 9.1 /CMM (1.8-8.9); NEUTROPHILS % (AUTO) 67.4 % (43.0-81.0); PLATELET COUNT (AUTO) 197 /CMM (150-450); RED BLOOD CELL COUNT(AUTO) 2.51 MIL/uL (4.5-6.0); WHITE BLOOD COUNT (AUTO) 13.4 K/uL (4.3-11.0)
[2020-02-24 06:36] LABS: CALCIUM, SERUM 8.8 mg/dL (8.5-10.1); CREATININE 3.4 mg/dL (0.6-1.3); MAGNESIUM 2.6 mg/dL (1.8-2.4); PHOSPHORUS 2.8 mg/dL (2.5-4.9); POTASSIUM 3.1 mmol/L (3.5-5.1)
[2020-02-24] MEDS: INSULIN REGULAR, HUMAN 100 UNIT/ML 3 ML VIAL SQ PRN ×3 (07:04→18:02)
[2020-02-24] MEDS: CLONIDINE HCL 0.1 MG TABLET GT SCH ×3 (07:05→21:17)
[2020-02-24] MEDS: LABETALOL HCL (100MG) 100 MG TABLET GT SCH ×3 (07:07→21:18)
[2020-02-24] MEDS: METOCLOPRAMIDE HCL 10 MG TABLET GT SCH ×3 (07:08→21:17)
[2020-02-24] MEDS: BLOOD SUGAR DIAGNOSTIC 1 EACH STRIP IN SCH ×3 (07:14→18:03)
[2020-02-24] MEDS: PIPERACILLIN /TAZOBACTAM 2.25 G in IV D5W 50 ML IV SCH ×3 (07:14→21:18)
[2020-02-24 08:00] VITALS: BP 129/74
--- NOTE | 2020-02-24 08:01 | NUR ---
RN OPENING NOTES RECEIVED PATIENT AWAKE AND RESTING IN BED. HE IS AOX2-3, NON0-VERBAL, AND BEDBOUND. HE IS ON MECH VENT VIA PORTEX 7 TRACH, TOLERATING SETTINGS WELL, NO SOB OR RESP DISTRESS. TELE MONITOR SHOWING SR WITH HR IN THE 80'S. SKIN IS INTACT. GTUBE IS PATENT AND INTACT, RUNNING NEPRO AT 45 ML/HR, TOLERATING WELL. TOM MIDLINE IS PATENT AND INTACT, R FEMORAL HD CATH AND R WRIST 22 G IS PATENT AND INTACT. SAFETY MEASURES HAVE BEEN IMPLEMENTED, CALL LIGHT IS WITHIN REACH, BED IS IN LOWEST AND LOCKED POSITION, SIDE RAILS UP X2, WILL CONTINUE TO MONITOR FOR ANY CHANGES.
[2020-02-24] MEDS: ACETAMINOPHEN 650 MG/20.3 ML UDC GT PRN (08:34)
[2020-02-24] MEDS: FAMOTIDINE (20 MG) 20 MG TABLET GT SCH (08:34)
[2020-02-24] MEDS: FERROUS SULFATE UDC 300 MG/5 ML UDC GT SCH (08:34)
[2020-02-24] MEDS: LACTOBACILLUS RHAMNOSUS GG 1 EACH CAP.SPRINK GT SCH ×2 (08:35→16:43)
[2020-02-24] MEDS: LORATADINE 10 MG TABLET GT SCH (08:35)
[2020-02-24] MEDS: MINOXIDIL (2.5MG) 2.5 MG TABLET GT SCH ×2 (08:35→16:42)
[2020-02-24] MEDS: VIT B CMPLX 3/FA/VIT C/BIOTIN 1 TAB TABLET GT SCH (08:35)
[2020-02-24] MEDS: CHLORHEXIDINE GLUCONATE 15 ML UDC MM SCH (08:35)
[2020-02-24] MEDS: DOXAZOSIN MESYLATE (4 MG) 4 MG TABLET GT SCH ×2 (08:35→21:17)
[2020-02-24] MEDS: DOCUSATE SODIUM LIQ 100 MG/10 ML UDC GT SCH ×2 (08:35→21:16)
[2020-02-24] MEDS: AMLODIPINE BESYLATE 10 MG TABLET GT SCH (08:36)
[2020-02-24] MEDS: ISOSORBIDE DINITRATE (20MG) 20 MG TABLET GT SCH ×3 (08:36→16:46)
[2020-02-24] MEDS: NEOMY SULF/BACITRAC ZN/POLY 15 GM TUBE TP SCH ×2 (08:43→21:27)
[2020-02-24] MEDS: Z GUARD REMEDY 2 OZ OINT TP SCH ×2 (08:43→21:27)
--- NOTE | 2020-02-24 10:08 | NUR ---
RN NOTES PATIENT HAS POTASSIUM LEVEL OF 3.1. PT IS DIALYSIS PT, SPOKE WITH DR. VELEZ AND RECEIVED ORDER FOR 40 MEQ POTASSIUM VIA GTUBE X1 NOW.
[2020-02-24 10:11] LABS: ABG BASE EXCESS 2.7 mmol/L; ABG OXYGEN SATURATION 94.4 % (92.0-98.5); ABG PH 7.511 (7.350-7.450); ABG PO2 71.9 mmHg (75.0-100.0); AaDO2 175.4 mmHg; COHb 1.6 % (0.5-1.5); MetHb 0.5 % (0.0-1.5); O2Hb 92.4 % (94.0-97.0); SITE, ABG Left Radial; VENT MODE, BG AC 16 500 40% +5
[2020-02-24] MEDS ORDERED: POTASSIUM CHLORIDE 20 MEQ TAB.PRT.SR PO ONE (10:30)
[2020-02-24 12:00] VITALS: BP 132/66
[2020-02-24] MEDS ORDERED: PIPE3.379 IV (13:20)
[2020-02-24] MEDS ORDERED: FLUC200T GT (13:20)
--- NOTE | 2020-02-24 15:33 | NUR ---
RN NOTES PER DR. VELEZ, PT CANNOT LEAVE UNTIL HEMODIALYSIS IS SET UP OUTPATIENT. WILL CONTINUE TO MONITOR
[2020-02-24 16:00] VITALS: BP_SYST 116; BP_SYST 122; BP_DIAS 54; BP_DIAS 59
--- NOTE | 2020-02-24 16:41 | NUR ---
pending discharge per dr. peri reina to arranged outpatient hd,cm margaret aware,nursing sup aware.
--- NOTE | 2020-02-24 17:49 | NUR ---
RN NOTES SPOKE WITH DR LUDWIG, BONE MARROW BIOPSY HAS BEEN POSTPONED UNTIL TOMORROW, WILL CONTINUE TO MONITOR
[2020-02-24] MEDS: NEPRO 1,000 ML BOTTLE GT PRN (17:52)
--- NOTE | 2020-02-24 19:02 | NUR ---
RN CLOSING NOTES PATIENT IS RESTING IN BED COMFORTABLY, NO S/SX OF DISTRESS AT THIS TIME. PT IS ON [facility] VENT, TOLERATING SETTINGS WELL. NO ACUTE CHANGES OCCURRED THROUGHOUT THE SHIFT, VITAL SIGNS ARE STABLE, PT NEEDS HAVE BEEN MET. SAFETY MEASURES HAVE BEEN IMPLEMENTED, CALL LIGHT IS WITHIN REACH, BED IS IN LOWEST AND LOCKED POSITION, SIDE RAILS UP X2, PT HAS BEEN ENDORSED TO NIGHTSHIFT RN FOR SALLY.
--- NOTE | 2020-02-24 19:15 | NUR ---
RN OPENING NOTES RECEIVED PATIENT SLEEPING IN BED, BUT EASY TO AROUSE VIA TOUCH, A/OX2, NONVERBAL. ON TELE MONITOR SR WITH HR 80'S. ON MECH VENT VIA PORTEX 7 TRACH, TOLERATING SETTINGS WELL, NO SOB OR RESP DISTRESS NOTED. GTUBE FLUSHING AND PATENT, NEPRO RUNNIING AT 45 ML/HR, TOLERATING WELL, MINIMAL RESIDUAL NOTED. IV SITES TOM MIDLINE AND R WRIST 22G, BOTH FLUSHING AND INTACT. R FEMORAL HD CATH INTACT. CANNON CATH INTACT NOTED DRAINING WELL. SAFETY MEASURES IN PLACE; CALL LIGHT IS WITHIN REACH, BED IN LOW AND LOCKED POSITION, SIDE RAILS UP X2. WILL REPOSITION Q2H. WILL CONTINUE TO MONITOR CLOSELY. PER AM RN, PATIENT D/C PLANNING FOR TOMORROW AFTER BONE BIOPSY BY DR. LUDWIG. BONE BIOPSY CONSENT NOTED SIGNED AND PLACED IN CHART.
--- NOTE | 2020-02-24 19:18 | NUR ---
PT HAS BEEN ENDORSED TO NIGHTSHIFT RN FOR SALLY
[2020-02-24 20:00] VITALS: BP 129/65
[2020-02-25] VITALS (11 sets, daily range): BP systolic 112–151; BP diastolic 58–79
[2020-02-25] MEDS: BLOOD SUGAR DIAGNOSTIC 1 EACH STRIP IN SCH ×4 (00:05→18:16)
[2020-02-25] MEDS: INSULIN REGULAR, HUMAN 100 UNIT/ML 3 ML VIAL SQ PRN ×4 (00:06→18:20)
[2020-02-25] MEDS: IPRATROPIUM NEB FS 0.5 MG/2.5 ML AMPUL.NEB IH SCH ×4 (01:37→19:50)
[2020-02-25] MEDS: ALBUTEROL FS 2.5 MG/0.5 ML VIAL.NEB IH SCH ×4 (01:37→19:50)
[2020-02-25] MEDS: METOCLOPRAMIDE HCL 10 MG TABLET GT SCH ×3 (04:25→20:41)
[2020-02-25] MEDS: LABETALOL HCL (100MG) 100 MG TABLET GT SCH ×3 (04:25→20:40)
[2020-02-25] MEDS: CLONIDINE HCL 0.1 MG TABLET GT SCH ×3 (04:26→20:41)
[2020-02-25] MEDS: PIPERACILLIN /TAZOBACTAM 2.25 G in IV D5W 50 ML IV SCH ×3 (04:30→20:42)
--- NOTE | 2020-02-25 06:30 | NUR ---
RN CLOSING NOTES PATIENT RESTING IN BED, A/OX2, NONVERBAL. HEMODIALYSIS NURSE AT BEDSIDE. ON TELE MONITOR SR WITH HR 80'S. ON MECH VENT VIA PORTEX 7 TRACH, TOLERATING SETTINGS WELL, NO SOB OR RESP DISTRESS NOTED. GTUBE FLUSHING AND PATENT, NEPRO RUNNING AT 45 ML/HR, TOLERATING WELL, MINIMAL RESIDUAL NOTED. IV SITES TOM MIDLINE AND R WRIST 22G, BOTH FLUSHING AND INTACT. R FEMORAL HD CATH INTACT. CANNON CATH INTACT NOTED DRAINING WELL. SAFETY MEASURES MAINTAINED. REPOSITIONED Q2H. ALL MD ORDERS ATTENDED. PATIENT SCHEDULED FOR BONE BIOPSY WITH DR. LUDWIG TODAY; CONSENT SIGNED AND IN CHART. WILL ENDORSE TO AM RN FOR SALLY.
[2020-02-25 06:31] LABS: BASOPHILS # (AUTO) 0.1 /CMM (0.0-0.2); BASOPHILS % (AUTO) 0.6 % (0.0-2.0); EOSINOPHILS % (AUTO) 6.1 % (0.0-6.0); HEMATOCRIT 22 % (39-51); HEMOGLOBIN 7.3 g/dL (13.5-17.5); LYMPHOCYTES # (AUTO) 0.8 /CMM (0.8-4.8); LYMPHOCYTES % (AUTO) 5.2 % (20.0-44.0); MEAN CORPUSCULAR HGB CONC 33 g/dl (31.0-36.0); MEAN CORPUSCULAR VOLUME 88 fL (80-96); MONOCYTES # (AUTO) 2.5 /CMM (0.1-1.30); MONOCYTES % (AUTO) 16.8 % (2.0-12.0); NEUTROPHILS # (AUTO) 10.5 /CMM (1.8-8.9); NEUTROPHILS % (AUTO) 71.3 % (43.0-81.0); PLATELET COUNT (AUTO) 234 /CMM (150-450); RED BLOOD CELL COUNT(AUTO) 2.53 MIL/uL (4.5-6.0); WHITE BLOOD COUNT (AUTO) 14.8 K/uL (4.3-11.0)
[2020-02-25 06:33] LABS: CALCIUM, SERUM 9.1 mg/dL (8.5-10.1); CREATININE 4.3 mg/dL (0.6-1.3); POTASSIUM 3.7 mmol/L (3.5-5.1)
[2020-02-25 08:10] LABS: EOSINOPHILS % (MANUAL) 5 % (0-4); LYMPHOCYTES % (MANUAL) 6 % (16-48); MONOCYTES % (MANUAL) 13 % (0-11.0); NEUTROPHILS % (MANUAL) 76 (42-76)
--- NOTE | 2020-02-25 08:30 | NUR ---
GROOMING ASSISTANT NOTES RECEIVED PT IN BED, A/OX2. HAS HD BEING PERFORMED. LITZY WELL. TOM MIDLINE, R WIRST PERIPHERAL IV INTACT AND FLUSHES WELL. SR AT 83. EDEMA ON B FEET NOTED. TRACHED AND VENTED WITH SETTINGS PRESCRIBED. NO SOB NOTED. GT FEEDING RUNNING AT 45 ML/HR. WITH 10ML RESIDUAL. LITZY WELL. FC TO THE GRAVITY WITH 5ML OUTPUT MADAN COLOR URINE. PT NON VERBAL BUT ABLE TO POINT AND DIRECT. ALL NEEDS MET, SAFETY MEASURED IN PLACE. WILL CONT TO MONITOR
[2020-02-25] MEDS: DOCUSATE SODIUM LIQ 100 MG/10 ML UDC GT SCH ×2 (08:50→20:40)
[2020-02-25] MEDS: FERROUS SULFATE UDC 300 MG/5 ML UDC GT SCH (08:50)
[2020-02-25] MEDS: LACTOBACILLUS RHAMNOSUS GG 1 EACH CAP.SPRINK GT SCH ×2 (08:50→17:58)
[2020-02-25] MEDS: LORATADINE 10 MG TABLET GT SCH (08:51)
[2020-02-25] MEDS: DOXAZOSIN MESYLATE (4 MG) 4 MG TABLET GT SCH ×2 (08:51→20:41)
[2020-02-25] MEDS: ISOSORBIDE DINITRATE (20MG) 20 MG TABLET GT SCH ×3 (08:51→17:59)
[2020-02-25] MEDS: MINOXIDIL (2.5MG) 2.5 MG TABLET GT SCH ×2 (08:51→18:00)
[2020-02-25] MEDS: CHLORHEXIDINE GLUCONATE 15 ML UDC MM SCH (08:52)
[2020-02-25] MEDS: AMLODIPINE BESYLATE 10 MG TABLET GT SCH (08:53)
[2020-02-25] MEDS: VIT B CMPLX 3/FA/VIT C/BIOTIN 1 TAB TABLET GT SCH (08:57)
--- NOTE | 2020-02-25 09:00 | NUR ---
PT IS DONE WITH HD WITH OUTPUT OF 2500. NO DISTRESS NOTED. WILL CONT TO MONITOR
[2020-02-25] MEDS: FAMOTIDINE (20 MG) 20 MG TABLET GT SCH (09:21)
[2020-02-25] MEDS: NEOMY SULF/BACITRAC ZN/POLY 15 GM TUBE TP SCH ×2 (09:25→20:42)
[2020-02-25] MEDS: Z GUARD REMEDY 2 OZ OINT TP SCH ×2 (09:25→20:42)
[2020-02-25] MEDS: FLUCONAZOLE (100 MG) 100 MG TABLET GT SCH (13:33)
--- NOTE | 2020-02-25 15:00 | NUR ---
DIRECTOR GLOBAL MARKET RESEARCH NOTES TRACH CARE DONE PER PROTOCOL. PT TOLERATED WELL. NO SOB OR S/S OF DISTRESS NOTED. BED LOCKED AND LOWEST POSITION. ALL NEEDS MET WILL CONT TO MONITOR.
[2020-02-25] MEDS ORDERED: LIDOCAINE 1% INJ 50 ML MDV IJ ONE (17:00)
[2020-02-25] MEDS ORDERED: MORPHINE SULFATE INJ 2 MG/ML DISP.SYRIN IV ONE (17:00)
[2020-02-25 17:51] LABS: BASOPHILS # (AUTO) 0.1 /CMM (0.0-0.2); BASOPHILS % (AUTO) 0.7 % (0.0-2.0); EOSINOPHILS % (AUTO) 7.6 % (0.0-6.0); HEMATOCRIT 21 % (39-51); LYMPHOCYTES # (AUTO) 0.9 /CMM (0.8-4.8); LYMPHOCYTES % (AUTO) 7.8 % (20.0-44.0); MEAN CORPUSCULAR HGB CONC 33 g/dl (31.0-36.0); MEAN CORPUSCULAR VOLUME 88 fL (80-96); MONOCYTES # (AUTO) 1.9 /CMM (0.1-1.30); NEUTROPHILS # (AUTO) 7.5 /CMM (1.8-8.9); NEUTROPHILS % (AUTO) 66.9 % (43.0-81.0); PLATELET COUNT (AUTO) 226 /CMM (150-450); RED BLOOD CELL COUNT(AUTO) 2.38 MIL/uL (4.5-6.0); WHITE BLOOD COUNT (AUTO) 11.2 K/uL (4.3-11.0)
[2020-02-25 17:54] LABS: HEMOGLOBIN 6.9 g/dL (13.5-17.5)
[2020-02-25 18:07] LABS: BAND % (MANUAL) 2 % (0.0-5.0); EOSINOPHILS % (MANUAL) 7 % (0-4); LYMPHOCYTES % (MANUAL) 6 % (16-48); MONOCYTES % (MANUAL) 15 % (0-11.0); NEUTROPHILS % (MANUAL) 70 (42-76)
--- NOTE | 2020-02-25 18:25 | NUR ---
rn note pt had bone marrow biopsy done at bedside by dr padilla, cbc sent to the lab hgb came 6.9, dr de la paz notified, no new orders at this time, to monitor. no bleeding noted at the site of biopsy.
--- NOTE | 2020-02-25 19:00 | NUR ---
RN NOTE PT NOT DISCHARGED YET BECAUSE PT WAITING OUTPATIENT HD SETUP AFTER DISCHARGE.
--- NOTE | 2020-02-25 19:20 | NUR ---
RN OPENING NOTE RECEIVED PATIENT IN BED RESTING WITH HOB ELEVATED, WATCHING TV. BREATHING EVEN AND NON LABORED, NO SOB NOTED AT THIS TIME. ON VENT. NON VERBAL. ON GTF NEPHRO RUNNING AT 45 CC/HR. ON CANNON CATH. URINE IS MADAN IN COLOR AND NOTED WITH SEDIMENTS. IN NO APPARENT DISTRESS NOTED AT THIS TIME. WILL CONTINUE TO MONITOR.
--- NOTE | 2020-02-25 20:00 | NUR ---
RN NOTE RECEIVED ORDER FROM DR. LUDWIG TO ADMINISTER 1 UNIT PRBC FOR HGB 6.9. ORDERS NOTED AND CARRIED OUT.
[2020-02-25] MEDS: NEPRO 1,000 ML BOTTLE GT PRN (21:25)
[2020-02-26] VITALS (8 sets, daily range): BP systolic 128–147; BP diastolic 62–75
[2020-02-26] MEDS: BLOOD SUGAR DIAGNOSTIC 1 EACH STRIP IN SCH ×4 (00:42→17:15)
[2020-02-26] MEDS: INSULIN REGULAR, HUMAN 100 UNIT/ML 3 ML VIAL SQ PRN ×4 (00:45→17:27)
--- NOTE | 2020-02-26 01:15 | NUR ---
RN NOTE ADMINISTERED 1 UNIT PRBC ORDERED. NO ADVERSE EFFECTS NOTED. WILL CONTINUE TO MONITOR.
[2020-02-26] MEDS: IPRATROPIUM NEB FS 0.5 MG/2.5 ML AMPUL.NEB IH SCH ×4 (01:16→19:37)
[2020-02-26] MEDS: ALBUTEROL FS 2.5 MG/0.5 ML VIAL.NEB IH SCH ×4 (01:16→19:36)
[2020-02-26] MEDS: PIPERACILLIN /TAZOBACTAM 2.25 G in IV D5W 50 ML IV SCH ×3 (04:55→22:01)
[2020-02-26] MEDS: CLONIDINE HCL 0.1 MG TABLET GT SCH ×3 (04:56→22:02)
[2020-02-26] MEDS: METOCLOPRAMIDE HCL 10 MG TABLET GT SCH ×3 (04:56→22:02)
[2020-02-26] MEDS: LABETALOL HCL (100MG) 100 MG TABLET GT SCH ×3 (04:57→22:03)
[2020-02-26 06:24] LABS: BASOPHILS # (AUTO) 0.1 /CMM (0.0-0.2); BASOPHILS % (AUTO) 0.6 % (0.0-2.0); EOSINOPHILS % (AUTO) 7.9 % (0.0-6.0); HEMATOCRIT 23 % (39-51); HEMOGLOBIN 7.6 g/dL (13.5-17.5); LYMPHOCYTES # (AUTO) 0.8 /CMM (0.8-4.8); LYMPHOCYTES % (AUTO) 7.1 % (20.0-44.0); MEAN CORPUSCULAR HGB CONC 33 g/dl (31.0-36.0); MEAN CORPUSCULAR VOLUME 89 fL (80-96); MONOCYTES # (AUTO) 1.7 /CMM (0.1-1.30); MONOCYTES % (AUTO) 15.6 % (2.0-12.0); NEUTROPHILS # (AUTO) 7.4 /CMM (1.8-8.9); NEUTROPHILS % (AUTO) 68.8 % (43.0-81.0); PLATELET COUNT (AUTO) 255 /CMM (150-450); RED BLOOD CELL COUNT(AUTO) 2.58 MIL/uL (4.5-6.0); WHITE BLOOD COUNT (AUTO) 10.7 K/uL (4.3-11.0)
--- NOTE | 2020-02-26 06:52 | NUR ---
RN CLOSING NOTE PATIENT IS IN BED RESTING WITH HOB ELEVATED. NO SIGNIFICANT CHANGES NOTED THROUGH OUT SPEECH PATHOLOGY SUPERVISOR. HGB IS 7.6 AFTER 1 UNIT PRBC. PATIENT IS KEPT CLEAN, DRY, AND COMFORTABLE. ALL DUE MEDS GIVEN AND TOLERATED WELL. ALL NEEDS ATTENDED AND MET. WILL ENDORSE TO AM SHIFT RN FOR CONTINUATION OF CARE.
[2020-02-26 08:20] LABS: EOSINOPHILS % (MANUAL) 7 % (0-4); LYMPHOCYTES % (MANUAL) 7 % (16-48); MONOCYTES % (MANUAL) 16 % (0-11.0); NEUTROPHILS % (MANUAL) 70 (42-76)
[2020-02-26] MEDS: FERROUS SULFATE UDC 300 MG/5 ML UDC GT SCH (09:17)
[2020-02-26] MEDS: LORATADINE 10 MG TABLET GT SCH (09:17)
[2020-02-26] MEDS: VIT B CMPLX 3/FA/VIT C/BIOTIN 1 TAB TABLET GT SCH (09:17)
[2020-02-26] MEDS: DOXAZOSIN MESYLATE (4 MG) 4 MG TABLET GT SCH ×2 (09:18→22:02)
[2020-02-26] MEDS: FLUCONAZOLE (100 MG) 100 MG TABLET GT SCH (09:18)
[2020-02-26] MEDS: CHLORHEXIDINE GLUCONATE 15 ML UDC MM SCH (09:18)
[2020-02-26] MEDS: DOCUSATE SODIUM LIQ 100 MG/10 ML UDC GT SCH ×2 (09:18→22:01)
[2020-02-26] MEDS: ISOSORBIDE DINITRATE (20MG) 20 MG TABLET GT SCH ×3 (09:18→17:15)
[2020-02-26] MEDS: MINOXIDIL (2.5MG) 2.5 MG TABLET GT SCH ×2 (09:19→17:15)
[2020-02-26] MEDS: FAMOTIDINE (20 MG) 20 MG TABLET GT SCH (09:20)
[2020-02-26] MEDS: AMLODIPINE BESYLATE 10 MG TABLET GT SCH (09:20)
[2020-02-26] MEDS: LACTOBACILLUS RHAMNOSUS GG 1 EACH CAP.SPRINK GT SCH ×2 (09:20→17:15)
[2020-02-26] MEDS: NEOMY SULF/BACITRAC ZN/POLY 15 GM TUBE TP SCH ×2 (09:22→22:09)
[2020-02-26] MEDS: Z GUARD REMEDY 2 OZ OINT TP SCH ×2 (09:22→22:10)
--- NOTE | 2020-02-26 19:40 | NUR ---
EQUIPMENT TECH NOTES, RECEIVED PATIENT IN BED, SLEEPING AT THIS TIME, ON MECHANICAL VENTILATOR TOLERATED SETTINGS WELL, NO SOB NOTED/ ACUTE DISTRESS NOTED, NSR IN TELE MONITOR WITH HR IN 80S AT THIS TIME, TOM MIDLINE, R WRIST PERIPHERAL IV BOTH PATENT AND INTACT, GT FEEDING INFUSING AT 45 ML/HR. NO RESIDUAL NOTED AT THIS TIME, FC TO THE GRAVITY WITH MINIMAL OUTPUT NOTED, MADAN COLOR URINE, ALL NEEDS PROVIDED, S/R OF BED UP PROTOCOL, ALL NEEDS MET, SAFETY MEASURED IN PLACE., WILL CONTINUE TO MONITOR CLOSELY.
[2020-02-26] MEDS: NEPRO 1,000 ML BOTTLE GT PRN (22:44)
[2020-02-27] VITALS: BP 142/70
[2020-02-27] MEDS: BLOOD SUGAR DIAGNOSTIC 1 EACH STRIP IN SCH ×4 (00:23→18:04)
[2020-02-27] MEDS: INSULIN REGULAR, HUMAN 100 UNIT/ML 3 ML VIAL SQ PRN ×4 (00:41→18:06)
[2020-02-27] MEDS: ALBUTEROL FS 2.5 MG/0.5 ML VIAL.NEB IH SCH ×4 (01:47→20:14)
[2020-02-27] MEDS: IPRATROPIUM NEB FS 0.5 MG/2.5 ML AMPUL.NEB IH SCH ×4 (01:47→20:14)
[2020-02-27 04:00] VITALS: BP 152/70
[2020-02-27] MEDS: PIPERACILLIN /TAZOBACTAM 2.25 G in IV D5W 50 ML IV SCH ×3 (04:48→21:25)
[2020-02-27] MEDS: CLONIDINE HCL 0.1 MG TABLET GT SCH ×3 (04:50→21:26)
[2020-02-27] MEDS: METOCLOPRAMIDE HCL 10 MG TABLET GT SCH ×3 (04:51→21:25)
[2020-02-27] MEDS: LABETALOL HCL (100MG) 100 MG TABLET GT SCH ×3 (04:52→21:26)
--- NOTE | 2020-02-27 06:56 | NUR ---
RN CLOSING NOTES, PATIENT IN BED ASLEEP AT THIS TIME, BUT AROUSES EASILY TO VERBAL STIMULI, ON MECHANICAL VENTILATOR, TOLERATED SETTINGS WELL, NO SOB/ACUTE DISTRESS NOTED DURING THE NIGHT, ALL MEDS DUE ADMINISTERED, NO CHANGE IN CONDITION, NORMAL VS, WILL ENDORSE CONTINUITY OF CARE TO ONCOMING NURSE.
--- NOTE | 2020-02-27 07:30 | NUR ---
EDUCATION ADMINISTRATIVE ASSISTANT NOTE Received patient awake in bed HOB elevated. On Trach and Vent. Tolerating well. Appears calm and relaxed. AO x2. On GT feeding Nepro @ 45ml/hr. Tolerating well. Bowel sounds present on all four quadrants. Patient has TOM midline, L wrist peripheral line and R femoral HD cath. Dialysis is scheduled to be done today. Safety measures reinforced. Bed on locked and lowest position. Will cont to monitor.
[2020-02-27 08:00] VITALS: BP 136/68
[2020-02-27 08:25] LABS: CALCIUM, SERUM 9.3 mg/dL (8.5-10.1); CREATININE 4.7 mg/dL (0.6-1.3); POTASSIUM 3.8 mmol/L (3.5-5.1)
[2020-02-27] MEDS: CHLORHEXIDINE GLUCONATE 15 ML UDC MM SCH (09:16)
[2020-02-27] MEDS: LORATADINE 10 MG TABLET GT SCH (09:16)
[2020-02-27] MEDS: MINOXIDIL (2.5MG) 2.5 MG TABLET GT SCH ×2 (09:17→17:58)
[2020-02-27] MEDS: DOXAZOSIN MESYLATE (4 MG) 4 MG TABLET GT SCH ×2 (09:17→21:25)
[2020-02-27] MEDS: VIT B CMPLX 3/FA/VIT C/BIOTIN 1 TAB TABLET GT SCH (09:18)
[2020-02-27] MEDS: AMLODIPINE BESYLATE 10 MG TABLET GT SCH (09:18)
[2020-02-27] MEDS: DOCUSATE SODIUM LIQ 100 MG/10 ML UDC GT SCH ×2 (09:19→21:25)
[2020-02-27] MEDS: LACTOBACILLUS RHAMNOSUS GG 1 EACH CAP.SPRINK GT SCH ×2 (09:19→17:58)
[2020-02-27] MEDS: ISOSORBIDE DINITRATE (20MG) 20 MG TABLET GT SCH ×3 (09:19→17:59)
[2020-02-27] MEDS: FAMOTIDINE (20 MG) 20 MG TABLET GT SCH (09:19)
[2020-02-27] MEDS: FERROUS SULFATE UDC 300 MG/5 ML UDC GT SCH (09:19)
[2020-02-27] MEDS: FLUCONAZOLE (100 MG) 100 MG TABLET GT SCH (09:20)
[2020-02-27] MEDS: NEOMY SULF/BACITRAC ZN/POLY 15 GM TUBE TP SCH ×2 (09:41→21:27)
[2020-02-27] MEDS: Z GUARD REMEDY 2 OZ OINT TP SCH ×2 (09:41→21:27)
[2020-02-27 12:00] VITALS: BP 144/70
[2020-02-27 16:00] VITALS: BP 142/70
--- NOTE | 2020-02-27 18:48 | NUR ---
RN CLOSING NOTE Patient in bed awake. HOB elevated. No co of pain and discomfort. Patient is on a vent. No signs of distress. Hemodialysis done took out 2000ml. Herrera catheter drained 100ml urine. Pt is on a GT feeding Nepro @ 45cc/hr. Kept patient clean and dry. All needs met. All due meds given. Safety measures reinforced. Call light within reach. Will endorse to camera operator for tato.
--- NOTE | 2020-02-27 19:07 | NUR ---
RN CLOSING NOTE Endorsed to mini shifter for tato.
[2020-02-27 20:00] VITALS: BP 146/76
--- NOTE | 2020-02-27 20:00 | NUR ---
CASH GRAIN FARMER NOTE PT IN BED AWAKE. NON VERBAL. ON VENT/TRACH TOLERATING THE SETTINGS WELL. SUCTIONED HIM PRN THIN WHITE SECRETION. ON TELE SR HR 82. F/C INTACT AND PATENT WITH MADAN COLOR URINE. GTF INFUSING NEPRO AT 45 ML/HR, 0 ML RESIDUAL NOTED. TOM MIDLINE INTACT AND PATENT NS TKO, NO S/S OF INFILTRATION NOTED. RT FEMORAL HD CATH INTACT. LT WRIST #22 G SL INTACT AND PATENT. REPOSITION HIM Q2H, KEPT HIM DRY AND CLEAN. ALL NEEDS ATTENDED. VSS. CONTINUE TO MONITOR HIM.
[2020-02-28] VITALS: BP 141/77
[2020-02-28] MEDS: BLOOD SUGAR DIAGNOSTIC 1 EACH STRIP IN SCH ×5 (00:18→23:55)
[2020-02-28] MEDS: ALBUTEROL FS 2.5 MG/0.5 ML VIAL.NEB IH SCH ×4 (02:15→20:03)
[2020-02-28] MEDS: IPRATROPIUM NEB FS 0.5 MG/2.5 ML AMPUL.NEB IH SCH ×4 (02:15→20:03)
[2020-02-28] MEDS: NEPRO 1,000 ML BOTTLE GT PRN (03:23)
[2020-02-28 04:00] VITALS: BP 163/80
[2020-02-28] MEDS: METOCLOPRAMIDE HCL 10 MG TABLET GT SCH ×3 (05:16→20:39)
[2020-02-28] MEDS: CLONIDINE HCL 0.1 MG TABLET GT SCH ×3 (05:16→20:39)
[2020-02-28] MEDS: PIPERACILLIN /TAZOBACTAM 2.25 G in IV D5W 50 ML IV SCH ×3 (05:17→20:56)
[2020-02-28] MEDS: LABETALOL HCL (100MG) 100 MG TABLET GT SCH ×3 (05:17→20:39)
[2020-02-28] MEDS: INSULIN REGULAR, HUMAN 100 UNIT/ML 3 ML VIAL SQ PRN ×3 (05:29→17:47)
--- NOTE | 2020-02-28 06:51 | NUR ---
A CLASS LINEMAN NOTE PT IN BED ASLEEP, EASILY AROUSABLE. NO DISTRESS OR DISCOMFORT NOTED. NO S/S OF PAIN NOTED. TOLERATING VENT SETTINGS. ON TELE SR 80. F/C INTACT AND PATENT DRAINING CLOUDY WITH SEDIMENTS YELLOWISH URINE. KEPT HIM DRY AND CLEAN. REPOSITION HIM Q2H, KEPT HIM DRY AND CLEAN. SIDE RAILS UP X 3 AND CALL LIGHT WITHIN REACH. WILL ENDORSE TO DAY SHIFT NURSE FOR CONTINUE TO CARE.
--- NOTE | 2020-02-28 07:55 | NUR ---
RN OPENING NOTES RECEIVED PATIENT SLEEPING IN BED, EASILY AROUSED. NO S.SX OF DISTRESS PRESENT AT THIS TIME. HE IA AOX2, NON-VERBAL, AND BED BOUND. HE IS ON MECH VENT VIA PORTEX 7 TRACH, TOLERATING VENT SETTINGS WELL, NO SOB OR RESP DISTRESS. TELE MONITOR SHOWING SR. SKIN IS INTACT, WITH SACRAL REDNESS. GTUBE IS PATENT AND INTACT, INFUSING NEPRO AT 45 ML.HR. TOM MIDLINE AND LWRIST 22 G IS PATENT AND INTACT. RFEMORAL IS PATENT AND INTACT. SAFETY MEASURES HAVE BEEN IMPLEMENTED, CALL LIGHT IS WITHIN REACH, BED IS IN LOWEST AND LOCKED POSITION, SIDE RAILS UP X2, WILL CONTINUE TO MONITOR FOR ANY CHANGES.
[2020-02-28 08:00] VITALS: BP 142/75
--- NOTE | 2020-02-28 08:24 | NUR ---
RT NOTE PT REC'D TRACHED ON MECHANICAL VENTILATION. AMBU BAG @ BEDSIDE. TX GIVEN, NO ADVERSE REACTIONS NOTED. SX DONE, TRACH SECURED AND PATENT. ALARMS ON AND AUDIBLE. VENT PLUGGED TO RED OUTLET. NO DISTRESS NOTED AT THIS TIME. CONT. PULSE OX CONNECTED. WILL CONTINUE TO MONITOR. Addendum: 02/28/20 at 0824 by HILL B[place]HAM RT Amended: Links added.
[2020-02-28] MEDS: LORATADINE 10 MG TABLET GT SCH (08:53)
[2020-02-28] MEDS: FERROUS SULFATE UDC 300 MG/5 ML UDC GT SCH (08:53)
[2020-02-28] MEDS: MINOXIDIL (2.5MG) 2.5 MG TABLET GT SCH ×2 (08:53→16:39)
[2020-02-28] MEDS: LACTOBACILLUS RHAMNOSUS GG 1 EACH CAP.SPRINK GT SCH ×2 (08:53→16:39)
[2020-02-28] MEDS: FAMOTIDINE (20 MG) 20 MG TABLET GT SCH (08:53)
[2020-02-28] MEDS: VIT B CMPLX 3/FA/VIT C/BIOTIN 1 TAB TABLET GT SCH (08:54)
[2020-02-28] MEDS: DOXAZOSIN MESYLATE (4 MG) 4 MG TABLET GT SCH ×2 (08:54→20:39)
[2020-02-28] MEDS: AMLODIPINE BESYLATE 10 MG TABLET GT SCH (08:54)
[2020-02-28] MEDS: FLUCONAZOLE (100 MG) 100 MG TABLET GT SCH (08:54)
[2020-02-28] MEDS: CHLORHEXIDINE GLUCONATE 15 ML UDC MM SCH (08:54)
[2020-02-28] MEDS: DOCUSATE SODIUM LIQ 100 MG/10 ML UDC GT SCH ×2 (08:54→20:38)
[2020-02-28] MEDS: ISOSORBIDE DINITRATE (20MG) 20 MG TABLET GT SCH ×3 (08:54→16:39)
[2020-02-28] MEDS: NEOMY SULF/BACITRAC ZN/POLY 15 GM TUBE TP SCH ×2 (09:01→20:40)
[2020-02-28] MEDS: Z GUARD REMEDY 2 OZ OINT TP SCH ×2 (09:02→20:40)
[2020-02-28 12:00] VITALS: BP 143/68
[2020-02-28 16:00] VITALS: BP 145/65
--- NOTE | 2020-02-28 18:56 | NUR ---
RN CLOSING NOTES PATIENT IS RESTING IN BED COMFORTABLY AT THIS TIME, NO S.SX OF DISTRESS AT THIS TIME. PT IS ON MECH VENT, VIA PORTEX 7 TRACH, TOLERATING SETTINGS WELL. PT NEEDS HAVE BEEN MET, VITAL SIGNS ARE STABLE, NO ACUTE CHANGES OCCURRED THROUGHOUT THE SHIFT. SAFETY MEASURES HAVE BEEN IMPLEMENTED, CALL LIGHT IS WITHIN REACH, BED IS IN LOWEST AND LOCKED POSITION, SIDE RAILS UP X2, WILL ENDORSE TO NIGHTSHIFT RN FOR SALLY.
--- NOTE | 2020-02-28 19:00 | NUR ---
RN OPENING NOTES RECEIVED PATIENT SLEEPING IN BED, BUT EASY TO AROUSE VIA TOUCH, A/OX2, NONVERBAL. ON TELE MONITOR SR WITH HR 80'S. ON MECH VENT VIA PORTEX 7 TRACH, TOLERATING SETTINGS WELL, NO SOB OR RESP DISTRESS NOTED. GTUBE FLUSHING AND PATENT, NEPRO RUNNIING AT 45 ML/HR, TOLERATING WELL, MINIMAL RESIDUAL NOTED. IV SITES TOM MIDLINE AND R WRIST 22G, BOTH FLUSHING AND INTACT. R FEMORAL HD CATH INTACT. CANNON CATH INTACT NOTED DRAINING WELL. SAFETY MEASURES IN PLACE; CALL LIGHT IS WITHIN REACH, BED IN LOW AND LOCKED POSITION, SIDE RAILS UP X2. WILL REPOSITION Q2H. WILL CONTINUE TO MONITOR CLOSELY.
--- NOTE | 2020-02-28 19:10 | NUR ---
PT HAS BEEN ENDORSED FOR SALLY
[2020-02-28 20:00] VITALS: BP 135/68
[2020-02-29] VITALS (8 sets, daily range): BP systolic 132–146; BP diastolic 63–73
--- NOTE | 2020-02-29 | NUR ---
RN NOTES PATIENT ROUNDING DONE, NO ACUTE DISTRESS NOTED. WILL CONT TO MONITOR CLOSELY.
[2020-02-29] MEDS: INSULIN REGULAR, HUMAN 100 UNIT/ML 3 ML VIAL SQ PRN ×4 (00:10→19:36)
[2020-02-29] MEDS: ALBUTEROL FS 2.5 MG/0.5 ML VIAL.NEB IH SCH ×4 (02:15→19:07)
[2020-02-29] MEDS: IPRATROPIUM NEB FS 0.5 MG/2.5 ML AMPUL.NEB IH SCH ×4 (02:15→19:07)
[2020-02-29] MEDS: NEPRO 1,000 ML BOTTLE GT PRN (03:37)
[2020-02-29] MEDS: METOCLOPRAMIDE HCL 10 MG TABLET GT SCH ×3 (05:10→21:44)
[2020-02-29] MEDS: LABETALOL HCL (100MG) 100 MG TABLET GT SCH ×3 (05:11→21:45)
[2020-02-29] MEDS: PIPERACILLIN /TAZOBACTAM 2.25 G in IV D5W 50 ML IV SCH ×2 (05:11→14:28)
[2020-02-29] MEDS: CLONIDINE HCL 0.1 MG TABLET GT SCH ×3 (05:11→21:44)
[2020-02-29] MEDS: BLOOD SUGAR DIAGNOSTIC 1 EACH STRIP IN SCH ×3 (06:13→18:40)
[2020-02-29 06:36] LABS: BASOPHILS # (AUTO) 0.1 /CMM (0.0-0.2); BASOPHILS % (AUTO) 1.1 % (0.0-2.0); EOSINOPHILS % (AUTO) 8.4 % (0.0-6.0); HEMATOCRIT 22 % (39-51); HEMOGLOBIN 7.5 g/dL (13.5-17.5); LYMPHOCYTES # (AUTO) 0.7 /CMM (0.8-4.8); LYMPHOCYTES % (AUTO) 7.6 % (20.0-44.0); MEAN CORPUSCULAR HGB CONC 34 g/dl (31.0-36.0); MEAN CORPUSCULAR VOLUME 88 fL (80-96); MONOCYTES # (AUTO) 1.1 /CMM (0.1-1.30); MONOCYTES % (AUTO) 10.8 % (2.0-12.0); NEUTROPHILS # (AUTO) 7.1 /CMM (1.8-8.9); NEUTROPHILS % (AUTO) 72.1 % (43.0-81.0); PLATELET COUNT (AUTO) 322 /CMM (150-450); RED BLOOD CELL COUNT(AUTO) 2.52 MIL/uL (4.5-6.0); WHITE BLOOD COUNT (AUTO) 9.8 K/uL (4.3-11.0)
[2020-02-29 06:41] LABS: CALCIUM, SERUM 9.6 mg/dL (8.5-10.1); CREATININE 4.6 mg/dL (0.6-1.3); MAGNESIUM 2.8 mg/dL (1.8-2.4); PHOSPHORUS 3.7 mg/dL (2.5-4.9)
--- NOTE | 2020-02-29 06:45 | NUR ---
RN CLOSING NOTES PATIENT SLEEPING IN BED, BUT EASY TO AROUSE VIA TOUCH. NO ACUTE CHANGES THROUGHOUT SHIFT. ON TELE MONITOR SR WITH HR 70'S. ON MECH VENT VIA PORTEX 7 TRACH, TOLERATING SETTINGS WELL, NO SOB OR RESP DISTRESS NOTED. GTUBE FLUSHING AND PATENT, NEPRO RUNNING AT 45 ML/HR, TOLERATING WELL, MINIMAL RESIDUAL NOTED. IV SITES TOM MIDLINE AND R WRIST 22G, BOTH FLUSHING AND INTACT. R FEMORAL HD CATH INTACT. CANNON CATH INTACT NOTED DRAINING WELL. SAFETY MEASURES MAINTAINED. REPOSITIONED Q2H. ALL MD ORDERS ATTENDED. WILL ENDORSE TO AM RN FOR SALLY.
--- NOTE | 2020-02-29 08:00 | NUR ---
CUSTOMER ENGINEERING SPECIALIST OPENING NOTES Received Patient asleep and resting in bed. A/O x 2. VS stable with no acute distress. Breathing even and unlabored on trachea and vent with no respiratory distress. Denies pain. No signs and symptoms of pain. Telemonitor in place and patent reading SR with HR-75. Gtube in place and patent with Nephro infusing at 45ml/hr. Herrera Cath in place and patent. TOM Midline clean, intact, patent and flushing well. 22g PIV on Left Wrist clean, intact, patent and flushing well. Safety precautions in place. Bed locked and set to lowest position with side rails x 2 up. All needs rendered at this time. Call light within reach. Will continue to monitor.
[2020-02-29] MEDS: DOXAZOSIN MESYLATE (4 MG) 4 MG TABLET GT SCH ×2 (08:52→21:45)
[2020-02-29] MEDS: DOCUSATE SODIUM LIQ 100 MG/10 ML UDC GT SCH ×2 (08:52→21:44)
[2020-02-29] MEDS: LACTOBACILLUS RHAMNOSUS GG 1 EACH CAP.SPRINK GT SCH ×2 (08:52→16:23)
[2020-02-29] MEDS: FLUCONAZOLE (100 MG) 100 MG TABLET GT SCH (08:52)
[2020-02-29] MEDS: LORATADINE 10 MG TABLET GT SCH (08:52)
[2020-02-29] MEDS: ISOSORBIDE DINITRATE (20MG) 20 MG TABLET GT SCH ×3 (08:53→16:24)
[2020-02-29] MEDS: FERROUS SULFATE UDC 300 MG/5 ML UDC GT SCH (08:53)
[2020-02-29] MEDS: CHLORHEXIDINE GLUCONATE 15 ML UDC MM SCH (08:56)
[2020-02-29] MEDS: FAMOTIDINE (20 MG) 20 MG TABLET GT SCH (08:56)
[2020-02-29] MEDS: AMLODIPINE BESYLATE 10 MG TABLET GT SCH (08:56)
[2020-02-29] MEDS: VIT B CMPLX 3/FA/VIT C/BIOTIN 1 TAB TABLET GT SCH (08:56)
[2020-02-29] MEDS: MINOXIDIL (2.5MG) 2.5 MG TABLET GT SCH ×2 (08:56→16:24)
[2020-02-29] MEDS: NEOMY SULF/BACITRAC ZN/POLY 15 GM TUBE TP SCH ×2 (09:07→21:46)
[2020-02-29] MEDS: Z GUARD REMEDY 2 OZ OINT TP SCH ×2 (09:08→21:46)
--- NOTE | 2020-02-29 19:20 | NUR ---
BRIDGE DESIGN ENGINEER CLOSING NOTES Received Patient asleep and resting in bed. A/O x 2. VS stable with no acute distress. Breathing even and unlabored on trachea and vent with no respiratory distress. Denies pain. No signs and symptoms of pain. Telemonitor in place and patent reading SR with HR-77. Gtube in place and patent with Nephro infusing at 45ml/hr. Herrera Cath in place and patent. TOM Midline clean, intact, patent and flushing well. 22g PIV on Left Wrist clean, intact, patent and flushing well. Safety precautions in place. Bed locked and set to lowest position with side rails x 2 up. All needs rendered at this time. Call light within reach. Will endorse plan of care to oncoming shift.
--- NOTE | 2020-02-29 19:45 | NUR ---
RN OPENING NOTES RECEIVED REPORT FROM IMTIAZ TAYLOR. FOUND Pt AWAKE, RESTING IN BED. NO S/S OF ACUTE DISTRESS OR SEVERE SOB NOTED. Pt IS A VENT/TRACH; WITH VENT SETTING AT AC 1 TV 500 FIO2 40% & PEEP 5. PORTEX #7. Pt IS A/OX2, ABLE TO COMMUNICATE BY MOUTHING WORDS, POINTING, & NODDING FOR YES OR NO QUESTIONS. ON TELE WITH SR 78. IV ACCESS ON TOM MIDLINE @TKO & LWRIST #22G, SL. CANNON CATHETER IN PLACE AND DRAINING WELL. GTUBE FEEDING NEPHRO @45ML/HR TOLERATING WELL. SAFETY MEASURES IN PLACE. BED LOW, LOCKED, HOB ELEVATED, SIDE RAILS UP, CALL LIGHT AND BEDSIDE TABLE WITHIN REACH. BED ALARM ON. WILL CONTINUE TO MONITOR Pt's CONDITION AND SAFETY THROUGHOUT THE NIGHT.
[2020-03-01] VITALS (7 sets, daily range): BP systolic 115–150; BP diastolic 52–76
--- NOTE | 2020-03-01 | NUR ---
RN NOTES @0000 BG ACCUCHECK 199. ADMINISTERED 3UN OF INSULIN PER SLIDING SCALE. ON CONTINUOUS GTF.
[2020-03-01] MEDS: BLOOD SUGAR DIAGNOSTIC 1 EACH STRIP IN SCH ×4 (00:56→17:29)
[2020-03-01] MEDS: INSULIN REGULAR, HUMAN 100 UNIT/ML 3 ML VIAL SQ PRN ×4 (01:14→18:55)
[2020-03-01] MEDS: IPRATROPIUM NEB FS 0.5 MG/2.5 ML AMPUL.NEB IH SCH ×4 (01:34→20:09)
[2020-03-01] MEDS: ALBUTEROL FS 2.5 MG/0.5 ML VIAL.NEB IH SCH ×4 (01:34→20:09)
[2020-03-01] MEDS: METOCLOPRAMIDE HCL 10 MG TABLET GT SCH ×3 (05:54→21:12)
[2020-03-01] MEDS: CLONIDINE HCL 0.1 MG TABLET GT SCH ×3 (05:55→21:12)
[2020-03-01] MEDS: LABETALOL HCL (100MG) 100 MG TABLET GT SCH ×3 (05:55→21:13)
--- NOTE | 2020-03-01 06:00 | NUR ---
RN NOTES @0600 BG ACCUCHECK 216. ADMINISTERED 6UN OF INSULIN MS SLIDING SCALE. ON CONTINUOUS GTF.
--- NOTE | 2020-03-01 06:01 | NUR ---
PATIENT RECEIVED ON TRACH TO VENT SUPPORT WITH SETTINGS OF AC 16, 500 VT, 40%, +5. SUCTIONED FOR MINIMAL, THICK, WHITE SECRETIONS. GIVEN IN-LINE TREATMENTS WITH NO ADVERSE REACTIONS. AMBU BAG AT BEDSIDE. VENT AND PULSE OXIMETER ALARMS AUDIBLE AND VISIBLE. VENT PLUGGED INTO RED OUTLET. Addendum: 03/01/20 at 0602 by GEOVANNA LUGO RT Amended: Links added.
[2020-03-01 06:52] LABS: BASOPHILS # (AUTO) 0.2 /CMM (0.0-0.2); BASOPHILS % (AUTO) 1.2 % (0.0-2.0); EOSINOPHILS % (AUTO) 6.9 % (0.0-6.0); HEMATOCRIT 25 % (39-51); HEMOGLOBIN 8.1 g/dL (13.5-17.5); LYMPHOCYTES # (AUTO) 0.6 /CMM (0.8-4.8); LYMPHOCYTES % (AUTO) 4.9 % (20.0-44.0); MEAN CORPUSCULAR HGB CONC 32 g/dl (31.0-36.0); MEAN CORPUSCULAR VOLUME 90 fL (80-96); MONOCYTES # (AUTO) 1.1 /CMM (0.1-1.30); MONOCYTES % (AUTO) 8.1 % (2.0-12.0); NEUTROPHILS # (AUTO) 10.4 /CMM (1.8-8.9); NEUTROPHILS % (AUTO) 78.9 % (43.0-81.0); PLATELET COUNT (AUTO) 347 /CMM (150-450); WHITE BLOOD COUNT (AUTO) 13.1 K/uL (4.3-11.0)
--- NOTE | 2020-03-01 06:55 | NUR ---
RN CLOSING NOTES NO SIGNIFICANT CHANGES IN Pt's CONDITION. NO S/S OF ACUTE DISTRESS OR SOB NOTED DURING THE NIGHT. TELE READING SR 90. ALL NEEDS MET AND ATTENDED TO. SAFETY MEASURES IN PLACE. WILL ENDORSE TO DAYSHIFT RN FOR Pt's SALLY.
[2020-03-01 07:07] LABS: CALCIUM, SERUM 9.6 mg/dL (8.5-10.1); CREATININE 4.1 mg/dL (0.6-1.3); POTASSIUM 3.9 mmol/L (3.5-5.1)
--- NOTE | 2020-03-01 07:15 | NUR ---
BEATER ROOM SUPERVISOR OPENING NOTES RECEIVED PATIENT SLEEPING IN BED, BUT EASY TO AROUSE VIA TOUCH, A/OX2, NONVERBAL. ON TELE MONITOR ST 90'S ON MECH VENT TOLERATING WITH THE PRESCRIBED SETTINGS , NO SOB OR RESP DISTRESS NOTED. GTUBE INTACT, FLUSHING AND PATENT, NEPRO RUNNIING AT 45 ML/HR WITH 200 ML REMAINING ON THE CONTAINER, TOLERATING WELL, NO RESIDUAL NOTED. IV SITES TOM MIDLINE RUNNING NS TKO WITH REMAINING 150 ML ON THE BAG AND R WRIST 22G, BOTH FLUSHING AND INTACT. R FEMORAL HD CATH INTACT. CANNON CATH INTACT DRAINING CLOUDY MADAN COLOR URINE, WITH 400 ML OUTPUT ON THE BAG. SAFETY MEASURES IN PLACE; CALL LIGHT IS WITHIN REACH, BED IN LOW AND LOCKED POSITION, SIDE RAILS UP X2. WILL REPOSITION Q2H. WILL CONTINUE TO MONITOR CLOSELY.
[2020-03-01] MEDS: FERROUS SULFATE UDC 300 MG/5 ML UDC GT SCH (09:05)
[2020-03-01] MEDS: LORATADINE 10 MG TABLET GT SCH (09:05)
[2020-03-01] MEDS: VIT B CMPLX 3/FA/VIT C/BIOTIN 1 TAB TABLET GT SCH (09:05)
[2020-03-01] MEDS: DOCUSATE SODIUM LIQ 100 MG/10 ML UDC GT SCH ×2 (09:05→21:11)
[2020-03-01] MEDS: FAMOTIDINE (20 MG) 20 MG TABLET GT SCH (09:05)
[2020-03-01] MEDS: AMLODIPINE BESYLATE 10 MG TABLET GT SCH (09:05)
[2020-03-01] MEDS: LACTOBACILLUS RHAMNOSUS GG 1 EACH CAP.SPRINK GT SCH ×2 (09:05→17:03)
[2020-03-01] MEDS: CHLORHEXIDINE GLUCONATE 15 ML UDC MM SCH (09:05)
[2020-03-01] MEDS: DOXAZOSIN MESYLATE (4 MG) 4 MG TABLET GT SCH ×2 (09:06→21:12)
[2020-03-01] MEDS: ISOSORBIDE DINITRATE (20MG) 20 MG TABLET GT SCH ×3 (09:06→17:03)
[2020-03-01] MEDS: MINOXIDIL (2.5MG) 2.5 MG TABLET GT SCH ×2 (09:06→17:03)
[2020-03-01] MEDS: Z GUARD REMEDY 2 OZ OINT TP SCH ×2 (09:15→21:15)
[2020-03-01] MEDS: NEOMY SULF/BACITRAC ZN/POLY 15 GM TUBE TP SCH ×2 (09:15→21:14)
[2020-03-01] MEDS: ACETAMINOPHEN 650 MG/20.3 ML UDC GT PRN (11:50)
--- NOTE | 2020-03-01 11:50 | NUR ---
RN NOTES NOTED TEMP OF 102.1 ; ADMINISTERED TYLENOL 650 MG
--- NOTE | 2020-03-01 11:51 | NUR ---
RN NOTES MAYRA ALCALA, MADE AWARE OF THE TEMPERATURE
[2020-03-01] MEDS ORDERED: FEE PK DOSING 1 MIN EA MC ONE (12:15)
[2020-03-01] MEDS: NEPRO 1,000 ML BOTTLE GT PRN (12:28)
[2020-03-01] MEDS ORDERED: VANCOMYCIN 1 GM in IV D5W 250ml IV ONE (12:30)
[2020-03-01] MEDS: PIPERACILLIN /TAZOBACTAM 2.25 G in IV D5W 50 ML IV SCH ×2 (14:09→21:13)
[2020-03-01 14:25] LABS: APPEARANCE,URINE TURBID (CLEAR); BILIRUBIN,URINE SMALL (NEGATIVE); BLOOD, URINE SMALL Ery/uL (NEGATIVE); COLOR,URINE YELLOW (YELLOW); KETONES,URINE TRACE (NEGATIVE); LEUKOCYTE ESTERASE ,URINE MODERATE (NEGATIVE); NITRITE, URINE NEGATIVE (NEGATIVE); PH,URINE 5.5 (5.0-8.0); PROTEIN,URINE >=300 mg/dl (NEGATIVE); UGLUCOSE NEGATIVE (NEGATIVE); UROBILINOGEN,URINE 0.2 EU/dL (0.2)
[2020-03-01 14:44] LABS: BACTERIA,URINE 4+ /HPF (None Seen); SQUAMOUS EPITHELIAL CELL,UR 0-2 /HPF (None Seen); URINE AMORPHOUS URATE Many /HPF (None Seen); WBC,URINE TOO NUMEROUS TO COUN /HPF (0-3)
--- NOTE | 2020-03-01 19:14 | NUR ---
RN CLOSING NOTES PATIENT IN BED, ASLEEP. IN NO APPARENT DISTRESS NOTED. ON VENT WITH PRESCRIBED SETTINGS, TOLERATING WELL. IV ACCESS ON R U ARM MIDLINE AND R WRIST BOTH INTACT, PATENT, AND FLUSHED WELL. NO INFILTRATION NOTED. CANNON CATHETER DRAINED AND EMPTIED. ALL NEEDS MET, KEPT CLEANED AND DRY. SAFETY MEASURES IN PLACED, BED IN LOWEST POSITIONED AND LOCKED. CALL LIGHT WITHIN REACHED. ENDORSED TO PM RN FOR SALLY
--- NOTE | 2020-03-01 19:25 | NUR ---
TELE/RN notes Patient received, awake A/O x2, in no acute distress, breathing even and unlabored. No SOB noted. Trach intact, patent, connected to vent with prescribed settings. Denies any pain. G-tube in place, patent, connected to feeding as ordered. Tolerating well. No residual. Safety maintained, bed at the lowest locked position. Call light within reach. Sinus rhythm on the monitor. Will continue to monitor as per plan of care.
--- NOTE | 2020-03-01 20:13 | NUR ---
RT NOTE PT RECEIVED TRACHED ON MECHANICAL VENTILATION. PORTEX [address] AMBU BAG/BACK UP TRACH @ BEDSIDE. TX GIVEN, NO ADVERSE REACTIONS NOTED. SX DONE, TRACH SECURED AND PATENT. ALARMS ON AND AUDIBLE. VENT PLUGGED TO RED OUTLET. CONT. PULSE OX CONNECTED. WILL MONITOR T/O SHIFT. Addendum: 03/01/20 at 2014 by MEGHAN MEHTA RT Amended: Links added.
[2020-03-02] VITALS (8 sets, daily range): BP systolic 125–139; BP diastolic 58–69
[2020-03-02] MEDS: BLOOD SUGAR DIAGNOSTIC 1 EACH STRIP IN SCH ×4 (00:15→17:49)
[2020-03-02] MEDS: INSULIN REGULAR, HUMAN 100 UNIT/ML 3 ML VIAL SQ PRN ×4 (00:21→17:50)
[2020-03-02] MEDS: ALBUTEROL FS 2.5 MG/0.5 ML VIAL.NEB IH SCH ×4 (01:15→20:38)
[2020-03-02] MEDS: IPRATROPIUM NEB FS 0.5 MG/2.5 ML AMPUL.NEB IH SCH ×4 (01:15→20:38)
[2020-03-02] MEDS: METOCLOPRAMIDE HCL 10 MG TABLET GT SCH ×3 (05:39→20:23)
[2020-03-02] MEDS: CLONIDINE HCL 0.1 MG TABLET GT SCH ×3 (05:39→20:23)
[2020-03-02] MEDS: LABETALOL HCL (100MG) 100 MG TABLET GT SCH ×3 (05:40→20:23)
[2020-03-02] MEDS: PIPERACILLIN /TAZOBACTAM 2.25 G in IV D5W 50 ML IV SCH ×3 (05:41→20:24)
[2020-03-02 06:55] LABS: BASOPHILS # (AUTO) 0.1 /CMM (0.0-0.2); BASOPHILS % (AUTO) 0.4 % (0.0-2.0); EOSINOPHILS % (AUTO) 4.6 % (0.0-6.0); HEMATOCRIT 22 % (39-51); HEMOGLOBIN 7.2 g/dL (13.5-17.5); LYMPHOCYTES # (AUTO) 0.8 /CMM (0.8-4.8); LYMPHOCYTES % (AUTO) 6.2 % (20.0-44.0); MEAN CORPUSCULAR HGB CONC 33 g/dl (31.0-36.0); MEAN CORPUSCULAR VOLUME 90 fL (80-96); MONOCYTES # (AUTO) 1.4 /CMM (0.1-1.30); MONOCYTES % (AUTO) 11.4 % (2.0-12.0); NEUTROPHILS # (AUTO) 9.6 /CMM (1.8-8.9); NEUTROPHILS % (AUTO) 77.4 % (43.0-81.0); PLATELET COUNT (AUTO) 308 /CMM (150-450); RED BLOOD CELL COUNT(AUTO) 2.46 MIL/uL (4.5-6.0); WHITE BLOOD COUNT (AUTO) 12.4 K/uL (4.3-11.0)
[2020-03-02] MEDS ORDERED: VANCOMYCIN POST DIALYSIS 500MG IV PRN ×2 (07:00)
[2020-03-02 07:01] LABS: CALCIUM, SERUM 9.5 mg/dL (8.5-10.1); CREATININE 4.8 mg/dL (0.6-1.3); POTASSIUM 3.9 mmol/L (3.5-5.1)
--- NOTE | 2020-03-02 07:26 | NUR ---
TELE/RN notes Patient remained in stable condition, awake A/O x2, in no acute distress, breathing even and unlabored. No SOB noted. Trach intact, patent, connected to vent with prescribed settings. Denies any pain. G-tube in place, patent, connected to feeding as ordered. Tolerating well. No residual. Remained afebrile. All due meds given as ordered, tolerated well. Kept clean and dry. Safety maintained, bed at the lowest locked position. Call light within reach. Sinus rhythm on the monitor. Will continue to monitor as per plan of care.
--- NOTE | 2020-03-02 08:00 | NUR ---
RN REGINALDO: pt is drowsy, can open eyes, short eyes contact, R.contracted, rest, SR, SBP over 100 below 150, O2sat. over 94%, no SOB, no distress, GTF residual WNL, keep HOB over 45, going for HD, discharge to Subacute, w/c done by report
[2020-03-02] MEDS: DOCUSATE SODIUM LIQ 100 MG/10 ML UDC GT SCH ×2 (08:40→20:22)
[2020-03-02] MEDS: FERROUS SULFATE UDC 300 MG/5 ML UDC GT SCH (08:40)
[2020-03-02] MEDS: CHLORHEXIDINE GLUCONATE 15 ML UDC MM SCH (08:41)
[2020-03-02] MEDS: AMLODIPINE BESYLATE 10 MG TABLET GT SCH (08:41)
[2020-03-02] MEDS: VIT B CMPLX 3/FA/VIT C/BIOTIN 1 TAB TABLET GT SCH (08:41)
[2020-03-02] MEDS: FAMOTIDINE (20 MG) 20 MG TABLET GT SCH (08:41)
[2020-03-02] MEDS: DOXAZOSIN MESYLATE (4 MG) 4 MG TABLET GT SCH ×2 (08:41→20:24)
[2020-03-02] MEDS: MINOXIDIL (2.5MG) 2.5 MG TABLET GT SCH ×2 (08:42→16:25)
[2020-03-02] MEDS: LACTOBACILLUS RHAMNOSUS GG 1 EACH CAP.SPRINK GT SCH ×2 (08:42→16:25)
[2020-03-02] MEDS: NEOMY SULF/BACITRAC ZN/POLY 15 GM TUBE TP SCH ×2 (08:43→20:24)
[2020-03-02] MEDS: ISOSORBIDE DINITRATE (20MG) 20 MG TABLET GT SCH ×3 (08:43→16:25)
[2020-03-02] MEDS: LORATADINE 10 MG TABLET GT SCH (08:43)
[2020-03-02] MEDS: Z GUARD REMEDY 2 OZ OINT TP SCH ×2 (08:44→20:24)
--- NOTE | 2020-03-02 10:45 | NUR ---
BEHAVIORAL HEALTH THERAPIST: HD nurse updated/started HD, pharmacy notified
--- NOTE | 2020-03-02 12:30 | NUR ---
CIVIL LABORATORY TECHNICIAN: HD done, tolerated well, 2L out, pt is more awake/Ox2, no c/o, no pain, VSS
--- NOTE | 2020-03-02 14:41 | NUR ---
AMADO REGINALDO: changed F/C, patent
[2020-03-02] MEDS: NEPRO 1,000 ML BOTTLE GT PRN (14:45)
--- NOTE | 2020-03-02 17:59 | NUR ---
NATURAL HISTORY COLLECTIONS CURATOR: pt is awake/Ox2, rest, can follow commands, no c/o, no pain, O2 sat over 95%, no SOB, suctioned well, SR, SBP over 100 below 150, GTF residual WNL, all PM/skin/wound care done, BC from HD cath was sent, keep HOB over 40
[2020-03-03] VITALS: BP 132/68
[2020-03-03] MEDS: BLOOD SUGAR DIAGNOSTIC 1 EACH STRIP IN SCH ×5 (00:34→23:34)
[2020-03-03] MEDS: INSULIN REGULAR, HUMAN 100 UNIT/ML 3 ML VIAL SQ PRN ×5 (00:36→23:35)
[2020-03-03] MEDS: ALBUTEROL FS 2.5 MG/0.5 ML VIAL.NEB IH SCH ×4 (02:05→20:32)
[2020-03-03] MEDS: IPRATROPIUM NEB FS 0.5 MG/2.5 ML AMPUL.NEB IH SCH ×4 (02:05→20:32)
[2020-03-03 04:00] VITALS: BP 141/74
--- NOTE | 2020-03-03 04:58 | NUR ---
RT NOTE Pt rec'd trached on [facility] vent on AC mode on noted settings as charted. Pt shows no signs of resp distress or sob. Pt sx'd for thick mod amt of pale yellow secretions. Trach is patent and secured. Alarms are set and audible. Vent plugged into red outlet. Ambu bag bedside. Will continue to monitor closely. Addendum: 03/03/20 at 0500 by CRISTIANE NAVA RT Amended: Links added.
[2020-03-03] MEDS: LABETALOL HCL (100MG) 100 MG TABLET GT SCH ×3 (05:45→22:34)
[2020-03-03] MEDS: METOCLOPRAMIDE HCL 10 MG TABLET GT SCH ×3 (05:45→22:33)
[2020-03-03] MEDS: PIPERACILLIN /TAZOBACTAM 2.25 G in IV D5W 50 ML IV SCH ×3 (05:45→22:32)
[2020-03-03] MEDS: CLONIDINE HCL 0.1 MG TABLET GT SCH ×3 (05:45→22:37)
[2020-03-03 06:13] LABS: CALCIUM, SERUM 9.5 mg/dL (8.5-10.1); CREATININE 4.1 mg/dL (0.6-1.3); MAGNESIUM 2.7 mg/dL (1.8-2.4); PHOSPHORUS 3.8 mg/dL (2.5-4.9); POTASSIUM 3.9 mmol/L (3.5-5.1)
[2020-03-03 06:14] LABS: BASOPHILS # (AUTO) 0.1 /CMM (0.0-0.2); HEMATOCRIT 22 % (39-51); HEMOGLOBIN 7.5 g/dL (13.5-17.5); LYMPHOCYTES # (AUTO) 0.6 /CMM (0.8-4.8); LYMPHOCYTES % (AUTO) 5.9 % (20.0-44.0); MEAN CORPUSCULAR HGB CONC 34 g/dl (31.0-36.0); MEAN CORPUSCULAR VOLUME 89 fL (80-96); MONOCYTES # (AUTO) 1.3 /CMM (0.1-1.30); NEUTROPHILS % (AUTO) 74.1 % (43.0-81.0); PLATELET COUNT (AUTO) 323 /CMM (150-450); RED BLOOD CELL COUNT(AUTO) 2.49 MIL/uL (4.5-6.0); WHITE BLOOD COUNT (AUTO) 10.8 K/uL (4.3-11.0)
--- NOTE | 2020-03-03 07:21 | NUR ---
TELE/RN notes Patient remained in stable condition, awake A/O x2, in no acute distress, breathing even and unlabored. No SOB noted. Trach intact, patent, connected to vent with prescribed settings. Denies any pain. G-tube in place, patent, connected to feeding as ordered. Tolerating well. No residual. Remained afebrile. All due meds given as ordered, tolerated well. Kept clean and dry. Safety maintained, bed at the lowest locked position. Call light within reach. Sinus rhythm on the monitor. Endorse to AM shift nurse for SALLY.
--- NOTE | 2020-03-03 07:40 | NUR ---
REGISTRATION SCHEDULING SPECIALIST OPENING NOTES RECEIVED PATIENT SLEEPING IN BED, BUT EASY TO AROUSE VIA TOUCH, A/OX2, NONVERBAL BUT NODS HEAD AND GIVE THUMBS UP/ DOWN . ON TELE MONITOR SR 85 ON MECH VENT TOLERATING WITH THE PRESCRIBED SETTINGS , NO SOB OR RESP DISTRESS NOTED. GTUBE INTACT, FLUSHING AND PATENT, NEPRO RUNNIING AT 45 ML/HR WITH 350 ML REMAINING ON THE CONTAINER, TOLERATING WELL, NO RESIDUAL NOTED. IV SITES TOM MIDLINE RUNNING NS TKO WITH REMAINING 150 ML ON THE BAG AND R WRIST 22G, BOTH FLUSHING AND INTACT. R FEMORAL HD CATH INTACT. CANNON CATH INTACT DRAINING CLOUDY MADAN COLOR URINE, WITH 250ML OUTPUT ON THE BAG. SAFETY MEASURES IN PLACE; CALL LIGHT IS WITHIN REACH, BED IN LOW AND LOCKED POSITION, SIDE RAILS UP X2. WILL REPOSITION Q2H. WILL CONTINUE TO MONITOR CLOSELY.
[2020-03-03 08:00] VITALS: BP 128/72
[2020-03-03] MEDS: FAMOTIDINE (20 MG) 20 MG TABLET GT SCH (08:11)
[2020-03-03] MEDS: CHLORHEXIDINE GLUCONATE 15 ML UDC MM SCH (08:11)
[2020-03-03] MEDS: FERROUS SULFATE UDC 300 MG/5 ML UDC GT SCH (08:11)
[2020-03-03] MEDS: LACTOBACILLUS RHAMNOSUS GG 1 EACH CAP.SPRINK GT SCH ×2 (08:12→17:11)
[2020-03-03] MEDS: DOXAZOSIN MESYLATE (4 MG) 4 MG TABLET GT SCH ×2 (08:12→22:34)
[2020-03-03] MEDS: MINOXIDIL (2.5MG) 2.5 MG TABLET GT SCH ×2 (08:12→17:11)
[2020-03-03] MEDS: LORATADINE 10 MG TABLET GT SCH (08:12)
[2020-03-03] MEDS: AMLODIPINE BESYLATE 10 MG TABLET GT SCH (08:13)
[2020-03-03] MEDS: ISOSORBIDE DINITRATE (20MG) 20 MG TABLET GT SCH ×3 (08:13→17:11)
[2020-03-03] MEDS: DOCUSATE SODIUM LIQ 100 MG/10 ML UDC GT SCH ×2 (08:13→22:32)
[2020-03-03] MEDS: VIT B CMPLX 3/FA/VIT C/BIOTIN 1 TAB TABLET GT SCH (08:15)
[2020-03-03] MEDS: NEOMY SULF/BACITRAC ZN/POLY 15 GM TUBE TP SCH ×2 (08:20→22:38)
[2020-03-03] MEDS: Z GUARD REMEDY 2 OZ OINT TP SCH ×2 (08:20→22:38)
[2020-03-03 12:00] VITALS: BP 118/68
[2020-03-03] MEDS: NEPRO 1,000 ML BOTTLE GT PRN (15:07)
[2020-03-03 16:00] VITALS: BP 130/76
[2020-03-03 20:00] VITALS: BP 122/66
[2020-03-04] VITALS (7 sets, daily range): BP systolic 121–155; BP diastolic 59–89
[2020-03-04] MEDS: ALBUTEROL FS 2.5 MG/0.5 ML VIAL.NEB IH SCH ×4 (01:40→19:42)
[2020-03-04] MEDS: IPRATROPIUM NEB FS 0.5 MG/2.5 ML AMPUL.NEB IH SCH ×4 (01:41→19:42)
[2020-03-04] MEDS: LABETALOL HCL (100MG) 100 MG TABLET GT SCH ×3 (05:57→20:55)
[2020-03-04] MEDS: PIPERACILLIN /TAZOBACTAM 2.25 G in IV D5W 50 ML IV SCH ×3 (05:58→20:58)
[2020-03-04] MEDS: METOCLOPRAMIDE HCL 10 MG TABLET GT SCH ×3 (05:58→20:56)
[2020-03-04] MEDS: CLONIDINE HCL 0.1 MG TABLET GT SCH ×3 (05:58→20:57)
[2020-03-04 06:36] LABS: BASOPHILS # (AUTO) 0.1 /CMM (0.0-0.2); BASOPHILS % (AUTO) 0.8 % (0.0-2.0); EOSINOPHILS % (AUTO) 3.5 % (0.0-6.0); HEMATOCRIT 22 % (39-51); LYMPHOCYTES # (AUTO) 0.8 /CMM (0.8-4.8); LYMPHOCYTES % (AUTO) 6.1 % (20.0-44.0); MEAN CORPUSCULAR HGB CONC 33 g/dl (31.0-36.0); MEAN CORPUSCULAR VOLUME 89 fL (80-96); MONOCYTES # (AUTO) 1.3 /CMM (0.1-1.30); MONOCYTES % (AUTO) 10.3 % (2.0-12.0); NEUTROPHILS # (AUTO) 10.1 /CMM (1.8-8.9); NEUTROPHILS % (AUTO) 79.3 % (43.0-81.0); PLATELET COUNT (AUTO) 343 /CMM (150-450); RED BLOOD CELL COUNT(AUTO) 2.41 MIL/uL (4.5-6.0); WHITE BLOOD COUNT (AUTO) 12.8 K/uL (4.3-11.0)
[2020-03-04 06:44] LABS: CALCIUM, SERUM 9.3 mg/dL (8.5-10.1); CREATININE 4.6 mg/dL (0.6-1.3); MAGNESIUM 2.5 mg/dL (1.8-2.4); PHOSPHORUS 3.4 mg/dL (2.5-4.9); POTASSIUM 3.7 mmol/L (3.5-5.1)
[2020-03-04] MEDS: BLOOD SUGAR DIAGNOSTIC 1 EACH STRIP IN SCH ×3 (06:52→18:38)
[2020-03-04] MEDS: INSULIN REGULAR, HUMAN 100 UNIT/ML 3 ML VIAL SQ PRN ×3 (06:53→18:37)
--- NOTE | 2020-03-04 08:06 | NUR ---
DRUG COUNSELOR OPENING NOTES RECEIVED PATIENT IN BED RESTING COMFORTABLY. PATIENT IN NO ACUTE DISTRESS. NO SOB NOTED. PATIENT BREATHING IS EVEN AND UNLABORED.PATIENT ON TRACH VENT, TOLERATING VENT SETTINGS WELL. PATIENT ON GTUBE WITH NO RESIDUAL NOTED. PATIENT ON CARDIAC MONITORING READING SINUS RHYTHM HR 87. PATIENT WITH CANNON CATHETER HANGING TO GRAVITY. PATIENT BED ALARM IS. HOB IS ELEVATED. SAFETY PRECAUTIONS IN PLACE. PATIENT BED IS LOCKED AND IN LOWEST POSITION. CALL LIGHT WITHIN REACH. WILL CONTINUE TO MONITOR.
--- NOTE | 2020-03-04 08:40 | NUR ---
SERVICES MANAGER NOTE PATIENT IN NO ACUTE DISTRESS. NO SOB NOTED. PATIENT BREATHING IS EVEN AND UNLABORED. TOLERATING VENT SETTINGS WELL. PATIENT BED IS LOCKED AND IN LOWEST POSITION. CALL LIGHT WITHIN REACH. ENDORSED PATIENT CARE AND REPORT GIVEN TO ELIZABETH FISCHER FOR SALLY.
[2020-03-04] MEDS: NEOMY SULF/BACITRAC ZN/POLY 15 GM TUBE TP SCH ×2 (09:00→20:58)
[2020-03-04] MEDS: Z GUARD REMEDY 2 OZ OINT TP SCH ×2 (09:00→20:58)
--- NOTE | 2020-03-04 09:18 | NUR ---
TELE/RN OPENING NOTE Received handoff report from Jeffrey FISCHER. Patient is resting in bed, A/O x1, able to nod head and move hands to point and use "thumbs up." Patient is on vent, portex #7, AC 16, TV 500 FiO2 40% PEEP 5, tele monitor SR 80s-90s. Herrera catheter in place with clear yellow output. G-tube is clear and patient running nephro @ 45ml/hour. TOM Mildine is clear and patent. Patient is currently receiving HD, will administer meds after HD is complete. Spoke with MD and informed of Hgb 7.0, no new orders at this time. Bed is in lowest position, side rails x3 in upright position, call light is within reach, fall, safety and aspiration precautions enforced, will continue with plan of care.
[2020-03-04] MEDS: FAMOTIDINE (20 MG) 20 MG TABLET GT SCH (10:54)
[2020-03-04] MEDS: VIT B CMPLX 3/FA/VIT C/BIOTIN 1 TAB TABLET GT SCH (10:55)
[2020-03-04] MEDS: FERROUS SULFATE UDC 300 MG/5 ML UDC GT SCH (10:55)
[2020-03-04] MEDS: LACTOBACILLUS RHAMNOSUS GG 1 EACH CAP.SPRINK GT SCH ×2 (10:55→16:55)
[2020-03-04] MEDS: DOCUSATE SODIUM LIQ 100 MG/10 ML UDC GT SCH ×2 (10:55→20:57)
[2020-03-04] MEDS: LORATADINE 10 MG TABLET GT SCH (11:00)
[2020-03-04] MEDS: MINOXIDIL (2.5MG) 2.5 MG TABLET GT SCH ×2 (11:00→16:55)
[2020-03-04] MEDS: DOXAZOSIN MESYLATE (4 MG) 4 MG TABLET GT SCH ×2 (11:00→20:56)
--- NOTE | 2020-03-04 11:00 | NUR ---
EMBROIDERY SUPERVISOR NOTE HD completed with 2L out. Patient remains stable, will continue to monitor.
[2020-03-04] MEDS: ISOSORBIDE DINITRATE (20MG) 20 MG TABLET GT SCH ×3 (11:01→16:55)
[2020-03-04] MEDS: AMLODIPINE BESYLATE 10 MG TABLET GT SCH (11:01)
[2020-03-04] MEDS: CHLORHEXIDINE GLUCONATE 15 ML UDC MM SCH (11:01)
--- NOTE | 2020-03-04 11:15 | NUR ---
EVALUATION ENGINEER NOTE Medications given late due to HD. Patient remains stable at this time.
[2020-03-04] MEDS: ACETAMINOPHEN 650 MG/20.3 ML UDC GT PRN (15:20)
--- NOTE | 2020-03-04 17:59 | NUR ---
tele/rn note per md, patient to start ivf d5ns @75ml/hour after midnight.
--- NOTE | 2020-03-04 19:28 | NUR ---
TELE/RN CLOSING NOTE Patient is resting in bed, A/O x1, able to nod head and move hands to point and use "thumbs up." Patient is on vent, portex #7, AC 16, TV 500 FiO2 40% PEEP 5, tele monitor SR 80s-90s. Herrera catheter in place with clear yellow output 500cc. G-tube is clear and patient running nephro @ 45ml/hour. Patient is to be NPO after midnight per MD. Scheduled for Perma-cath insertion, consent is signed over telephone consent from patient's uncle Keiht (# found in face sheet). TOM Mildine is clear and patent running TKO. All patient needs met, all due medications given, patient kept clean and dry throughout shift and turned [id number]. Bed is in lowest position, side rails x3 in upright position, call light is within reach, fall, safety and aspiration precautions enforced, will endorse to casino shift manager.
--- NOTE | 2020-03-04 20:05 | NUR ---
TELE/RN ADMITTING NOTES: RECIEVD BED SIDE REPORT FROM CARLOS UW. PATIENT ARRIVED TO THE UNIT VIA GURNEY UNDER ACLS PROTOCOL. PT. IS STABLE, ON TELE MONITORING WITH READING OF SR 80S-90S. A/OX2. NONVERBAL BUT ABLE TO FOLLOW COMMANDS, POINTS AND NODS HEAD, PRESSES THE CALL LIGHT WHEN NEEDED. ORIENTED TO UNIT AND STAFF. IV SITE LOCATED ON THE TOM MIDLINE, AND RIGHT WRIST #22G WITH TKO. INATCT AND PATENT, NO INFILTRATION NOTED. GTUBE FEEDING RUNNING AT 45ML/HR. TO BE HELD AT MIDNIGHT FOR PROCEDURE TOMORROW. VENT SETTINGS TRACH #: PORTEX 7; AC: 16, TV:500, FIO2: 40%, PEEP:5. NO SIGNS OF DISTRESS OR DISCOMFORT AT THIS TIME. NO C/O OF PAIN. KEPT IN A COMFORTABLE POSITION. SACRAL REDNESS PRESENT. SCARS NOTED. NO OTHER OPEN WOUNDS. PICTURES TAKEN AND DOCUMENTED ON THE CHART. VS TAKEN AND DOCUMENTED. PERMA CATH INSERTION SCHEDULED TOMORROW. CONSENTS ARE SIGNED, CHECKLIST TO BE DONE TOMORROW MORNING. WILL CONTINUE MONITORING PT. ACCORDINGLY.
--- NOTE | 2020-03-04 20:17 | NUR ---
TELE-1/OFFICE SERVICES ASSOCIATE PT TRANSFERRED TO 3W ROOM 323-1 VIA ACLS PROTOCOL. REPORT TO BRANDON FISCHER FOR CONT OF CARE.
--- NOTE | 2020-03-04 23:59 | NUR ---
TELE/RN NOTES: GTUBE FEEDING ON HOLD FRO NPO STATUS FOR PROCEDURE TOMORROW. WILL KEEP MONITORING PT. ACCORDINGLY.
[2020-03-05] VITALS (9 sets, daily range): BP systolic 141–162; BP diastolic 65–87
[2020-03-05] MEDS ORDERED: IV D5/ 0.9% NACL 1,000 ML IV PRN
[2020-03-05] MEDS: BLOOD SUGAR DIAGNOSTIC 1 EACH STRIP IN SCH ×5 (00:12→23:46)
[2020-03-05] MEDS: INSULIN REGULAR, HUMAN 100 UNIT/ML 3 ML VIAL SQ PRN ×4 (00:24→23:46)
--- NOTE | 2020-03-05 00:29 | NUR ---
TELE/RN NOTES: PATIENT'S BLOOD SUGAR IS 169. NPO STATUS FOR PERMACATH PROCEDURE TOMORROW. INSULIN NOT ADMINISTERED. PT STABLE. WILL CONTINUE MONITORING PT. ACCORDINGLY.
[2020-03-05] MEDS: ALBUTEROL FS 2.5 MG/0.5 ML VIAL.NEB IH SCH ×4 (01:36→19:43)
[2020-03-05] MEDS: IPRATROPIUM NEB FS 0.5 MG/2.5 ML AMPUL.NEB IH SCH ×4 (01:36→19:43)
--- NOTE | 2020-03-05 03:05 | NUR ---
TELE/RN NOTES: PATIENT IS STABLE. NO SIGNIFICANT CHANGES IN CONDITION. ENDORSED TO DARIUSZ FOR SALLY.
--- NOTE | 2020-03-05 03:10 | NUR ---
CLINICAL PROGRAM MANAGER OPENING NOTE RECEIVEE REPORT FROM BRANDON FISCHER. PATIENT IN BED. ON MECHANICAL VENTILATOR WITH PORTEX #7, SETTINGS INCLUDE: AC 16, TV 500, FIO2 40%, PEEP 5. A/O X1-2. PATIENT IS ABLE TO POINT, THUMBS UP, AND NOD. EXTERNAL TELE MONITOR READS SR 80-90S. DENIES PAIN AT THIS ITME./ IN NO APPARENT DISTRESS. IV ACCESS IN TOM MIDLINE RUNNING D5NS@75ML/HR. ANOTHER IV IN RIGHT WRIST #22 PATENT AND SALINE LOCKED. CANNON CATHETER IS PRESENT, DRAINING TO GRAVITY, URINE IS YELLOW. GTUBE IS PRESENT, NO FEEDING RUNNING D/T PATIENT IS NPO STATUS FOR PROCEDURE. BED IS LOW AND LOCKED, HOB ELEVATED IN HIGH FOWLERS, SIDE RIALS UP X2, BED ALARM ON, EXTREMITIES OFFLOADED. CALL LIGHT WITH IN REACH. WILL CONTINUE TO MONITOR.
[2020-03-05] MEDS: METOCLOPRAMIDE HCL 10 MG TABLET GT SCH ×3 (05:00→20:19)
[2020-03-05] MEDS: LABETALOL HCL (100MG) 100 MG TABLET GT SCH ×3 (05:00→20:21)
[2020-03-05] MEDS: CLONIDINE HCL 0.1 MG TABLET GT SCH ×3 (05:00→20:20)
[2020-03-05] MEDS: PIPERACILLIN /TAZOBACTAM 2.25 G in IV D5W 50 ML IV SCH ×3 (05:50→20:21)
--- NOTE | 2020-03-05 06:27 | NUR ---
receptionist/telephone operator note patient 0600 mara read blood sugar 253. no insulin coverage given d/t patient is npo for surgery. will continue to monitor and endorse to day shift.
--- NOTE | 2020-03-05 06:28 | NUR ---
SOUND MIXER CLOSING NOTE PATIENT IN BED. ON MECHANICAL VENTILATOR WITH PORTEX #7, SETTINGS INCLUDE: AC 16, TV 500, FIO2 40%, PEEP 5. A/O X1-2. PATIENT IS ABLE TO POINT, THUMBS UP, AND NOD. EXTERNAL TELE MONITOR READS SR 80-90S. NO C/O PAIN . NO DISTRESS NOTED. IV ACCESS MAINTAINED IN TOM MIDLINE RUNNING D5NS@75ML/HR AND IN RIGHT WRIST #22 PATENT AND SALINE LOCKED. CANNON CATHETER IS MAINTAINED, DRAINING TO GRAVITY, URINE IS YELLOW, OUTPUIT 150ML. GTUBE IS MAINTAINED, NO FEEDING RUNNING D/T PATIENT IS NPO STATUS FOR PROCEDURE. BED REMAINS LOW AND LOCKED, HOB ELEVATED IN HIGH FOWLERS, SIDE RIALS UP X2, BED ALARM ON, EXTREMITIES OFFLOADED. CALL LIGHT WITH IN REACH. WILL ENDORSE TO NEXT SHIFT.
[2020-03-05 07:07] LABS: BASOPHILS # (AUTO) 0.1 /CMM (0.0-0.2); BASOPHILS % (AUTO) 0.5 % (0.0-2.0); EOSINOPHILS % (AUTO) 6.6 % (0.0-6.0); HEMATOCRIT 21 % (39-51); LYMPHOCYTES # (AUTO) 0.7 /CMM (0.8-4.8); LYMPHOCYTES % (AUTO) 6.9 % (20.0-44.0); MEAN CORPUSCULAR HGB CONC 33 g/dl (31.0-36.0); MEAN CORPUSCULAR VOLUME 89 fL (80-96); MONOCYTES % (AUTO) 10.4 % (2.0-12.0); NEUTROPHILS # (AUTO) 7.6 /CMM (1.8-8.9); NEUTROPHILS % (AUTO) 75.6 % (43.0-81.0); PLATELET COUNT (AUTO) 356 /CMM (150-450)
--- NOTE | 2020-03-05 07:15 | NUR ---
FIRE CAPTAIN MARINE NOTES PATIENT AWAKE IN BED, NO RESPIRATORY DISTRESS, VENT SETTINGS PRESCRIBED. PATIENT WITH NO C/O PAIN AT THIS TIME. SKIN WARM TO TOUCH, IV MIDLINE ON THE TOM INTACT AND PATENT, IV ON RT WRIST #22G INTACT AND PATENT, D5NS INFUSING AT 75ML/HR. GT INTACT, PATIENT ON NPO STATUS. PATIENT'S NEEDS ATTENDED, BED ON LOWEST LOCKED POSITION, CALL LIGHT WITHIN REACH. WILL CONTINUE TO MONITOR.
[2020-03-05 07:17] LABS: CALCIUM, SERUM 9.1 mg/dL (8.5-10.1); MAGNESIUM 2.4 mg/dL (1.8-2.4); PHOSPHORUS 3.4 mg/dL (2.5-4.9); POTASSIUM 3.5 mmol/L (3.5-5.1)
[2020-03-05 07:42] LABS: HEMOGLOBIN 6.8 g/dL (13.5-17.5)
--- NOTE | 2020-03-05 07:50 | NUR ---
CRINKLING MACHINE OPERATOR NOTES CRITICAL LAB REPORTED BY RIN, HGB 6.8 AND HCT 21. WILL NOTIFY
[2020-03-05] MEDS: VIT B CMPLX 3/FA/VIT C/BIOTIN 1 TAB TABLET GT SCH (09:00)
[2020-03-05] MEDS: DOCUSATE SODIUM LIQ 100 MG/10 ML UDC GT SCH ×2 (09:00→20:19)
[2020-03-05] MEDS: FERROUS SULFATE UDC 300 MG/5 ML UDC GT SCH (09:00)
[2020-03-05] MEDS: LORATADINE 10 MG TABLET GT SCH (09:00)
[2020-03-05] MEDS: MINOXIDIL (2.5MG) 2.5 MG TABLET GT SCH ×3 (09:00→17:17)
[2020-03-05] MEDS: DOXAZOSIN MESYLATE (4 MG) 4 MG TABLET GT SCH ×3 (09:00→20:20)
[2020-03-05] MEDS: ISOSORBIDE DINITRATE (20MG) 20 MG TABLET GT SCH ×3 (09:00→17:17)
[2020-03-05] MEDS: LACTOBACILLUS RHAMNOSUS GG 1 EACH CAP.SPRINK GT SCH ×2 (09:00→17:17)
[2020-03-05] MEDS: AMLODIPINE BESYLATE 10 MG TABLET GT SCH ×2 (09:00→10:00)
[2020-03-05] MEDS: FAMOTIDINE (20 MG) 20 MG TABLET GT SCH (09:00)
[2020-03-05] MEDS: NEOMY SULF/BACITRAC ZN/POLY 15 GM TUBE TP SCH ×2 (09:33→20:18)
[2020-03-05] MEDS: Z GUARD REMEDY 2 OZ OINT TP SCH ×2 (09:34→20:19)
[2020-03-05] MEDS: CHLORHEXIDINE GLUCONATE 15 ML UDC MM SCH (09:37)
[2020-03-05] MEDS ORDERED: LIDOCAINE HCL/MPF 1% 30 ML VIAL IJ ONE (10:34)
[2020-03-05] MEDS ORDERED: HEPARIN SODIUM, PORCINE 1,000 UNIT/ML VIAL ONE (10:34)
[2020-03-05] MEDS ORDERED: FENTANYL PF 100MCG/2ML AMPUL ONE (10:57)
[2020-03-05] MEDS ORDERED: MIDAZOLAM HCL 2 MG/2ML VIAL ONE (10:58)
--- NOTE | 2020-03-05 11:15 | NUR ---
TRACK AND FIELD COACH NOTES PATIENT LEFT FOR PERMA CATH PLACEMENT, INFORMED DR. ROSE THAT BLOOD ISN'T READY FOR TRANSFUSION. PER DR. ROSE OKAY TO TRANSFUSE IN RECOVERY. PATIENT LEFT THE UNIT IN STABLE CONDITION, RT AT BEDSIDE DURING TRANSFER.
--- NOTE | 2020-03-05 12:10 | NUR ---
REAL ESTATE ANALYST NOTES PATIENT CAME BACK FROM SURGERY, IN NO RESPIRATORY DISTRESS, NO S/S OF ANY DISCOMFORT AT THIS TIME. PATIENT ON VENT SETTINGS PRESCRIBED. VSS. ORDERS CARRIED OUT
[2020-03-05 12:17] LABS: BAND % (MANUAL) 1 % (0.0-5.0); EOSINOPHILS % (MANUAL) 8 % (0-4); LYMPHOCYTES % (MANUAL) 9 % (16-48); MONOCYTES % (MANUAL) 13 % (0-11.0); NEUTROPHILS % (MANUAL) 69 (42-76)
--- NOTE | 2020-03-05 13:28 | NUR ---
RELATIONS MGR NOTES PATIENT'S VSS, NO ADVERSE REACTIONS NOTED, NO RESPIRATORY DISTRESS, NO C/O ANY DISCOMFORT AT THIS TIME.
[2020-03-05] MEDS: NEPRO 1,000 ML BOTTLE GT PRN (13:29)
--- NOTE | 2020-03-05 16:03 | NUR ---
LANDFILL GAS COLLECTION SYSTEM OPERATOR NOTES BLOOD TRANSFUSION DONE, PATIENT'S VSS, NO RESPIRATORY DISTRESS, NO ADVERSE REACTIONS NOTED, NO C/O PAIN AT THIS TIME. WILL CONTINUE TO MONITOR.
--- NOTE | 2020-03-05 19:11 | NUR ---
CHUCKING MACHINE SET UP OPERATOR NOTES PATIENT AWAKE IN NO RESPIRATORY DISTRESS, NO C/O PAIN AT THIS TIME. SKIN WARM TO TOUCH, IV ACCESS SITES INTACT AND PATENT. GTUBE INTACT AND PATENT, FEEDING OF NEPRO RUNNING AT 45ML/HR, TOLERATING WELL. F/C INTACT AND DRAINING YELLOW URINE. PATIENT'S NEEDS ATTENDED, BED ON LOWEST LOCKED POSITION, CALL LIGHT WITHIN REACH. WILL ENDORSE TO ONCOMING NURSE.
--- NOTE | 2020-03-05 19:30 | NUR ---
DATA CODER OPERATOR OPENING NOTES RECEIVED PATIENT FROM MORNING SHIFT, ALERT AND ORIENTED X 2. ABLE TO MOUTH WORDS AND MAKE NEEDS KNOWN THROUGH HAND GESTURES. BREATHING REGULAR AND UNLABORED WITH TRACHEOSTOMY PATENT AND INTACT CONNECTED TO MECHANICAL VENTILATOR. CURRENT VENT SETTINGS TOLERATING WELL. RIGHT UPPER ARM MIDLINE AND RIGHT WRIST IV LINE INTACT AND FLUSHING WELL WITH NO BLEEDING OR S/S OF INFILTRATION SEEN. GTUBE PATENT WITH NO RESIDUAL ASPIRATED OF THE TIME. ON CARDIAC MONITORING WITH NSR AT 86bpm. CANNON CATH PATENT DRAINING CLOUDY YELLOW URINE WITH MODERATE AMOUNT ON BAG. DENIES SUICIDAL/HOMICIDAL IDEATION AT THIS TIME. NO COMPLAINTS OF PAIN/DISCOMFORT REPORTED. ON ASPIRATION PRECAUTIONS. BED LOW AND LOCKED ON SEMI FOWLERS POSITION. CALL LIGHT IN REACH. WILL CONTINUE TO MONITOR.
[2020-03-06] VITALS: BP 126/60
--- NOTE | 2020-03-06 | NUR ---
ADULT MINISTRIES DIRECTOR NOTES BS 170mg/dl, 3UNITS REGULAR INSULIN GIVEN SQ. GTUBE FEEDING ON AND TOLERATING WELL. HOB ELEVATED. WILL CONTINUE TO MONITOR.
[2020-03-06 00:01] VITALS: BP 126/60
[2020-03-06] MEDS: IPRATROPIUM NEB FS 0.5 MG/2.5 ML AMPUL.NEB IH SCH ×4 (01:05→20:08)
[2020-03-06] MEDS: ALBUTEROL FS 2.5 MG/0.5 ML VIAL.NEB IH SCH ×4 (01:05→20:08)
[2020-03-06 04:00] VITALS: BP 150/70
[2020-03-06] MEDS: PIPERACILLIN /TAZOBACTAM 2.25 G in IV D5W 50 ML IV SCH ×2 (04:10→13:16)
[2020-03-06] MEDS: CLONIDINE HCL 0.1 MG TABLET GT SCH ×3 (04:31→21:44)
[2020-03-06] MEDS: METOCLOPRAMIDE HCL 10 MG TABLET GT SCH ×3 (04:31→21:51)
[2020-03-06] MEDS: LABETALOL HCL (100MG) 100 MG TABLET GT SCH ×3 (04:31→21:43)
--- NOTE | 2020-03-06 04:55 | NUR ---
MANGLE PRESS CATCHER NOTES DOSES OF LABETALOL 600MG TAKEN FROM BOTH OMNICELL'S; 1ST OMNICELL 2TABLETS/200MG AND 4TABLETS/400MG ON THE SECOND ONE.
[2020-03-06] MEDS: BLOOD SUGAR DIAGNOSTIC 1 EACH STRIP IN SCH ×3 (05:24→17:08)
[2020-03-06] MEDS: INSULIN REGULAR, HUMAN 100 UNIT/ML 3 ML VIAL SQ PRN ×3 (05:26→17:07)
--- NOTE | 2020-03-06 05:30 | NUR ---
CULINARY INTERNSHIP NOTES BS 191mg/dl, 3UNITS REGULAR INSULIN GIVEN SQ. GTUBE FEEDING ON AND TOLERATING WELL. HOB ELEVATED. WILL CONTINUE TO MONITOR.
--- NOTE | 2020-03-06 06:35 | NUR ---
INVENTORY CONTROL MANAGER CLOSING NOTES PATIENT IN BED ALERT AND ORIENTED X 2. AFEBRILE WITH NO S/S OF DISTRESS NOTED. TRACHEOSTOMY PATENT AND INTACT CONNECTED TO MECHANICAL VENTILATION. GTUBE INTACT, ON-GOING FEEDING TOLERATING WELL WITH NO EPISODE OF NAUSEA/VOMITING THE WHOLE SHIFT. MAINTAINED ON ASPIRATION PRECAUTION. ON CARDIAC MONITORING WITH NSR AT 80bpm. CANNON CATH INTACT DRAINING WELL WITH CLOUDY YELLOW URINE 100CC OUTPUT. NO COMPLAINTS OF PAIN/DISCOMFORT REPORTED AT THIS TIME. BED LOW AND LOCKED ON SEMI FOWLERS POSITION. CALL LIGHT IN REACH. WILL ENDORSE TO MORNING SHIFT FOR SALLY.
[2020-03-06 06:55] LABS: BASOPHILS # (AUTO) 0.1 /CMM (0.0-0.2); BASOPHILS % (AUTO) 0.6 % (0.0-2.0); EOSINOPHILS % (AUTO) 5.9 % (0.0-6.0); HEMATOCRIT 23 % (39-51); HEMOGLOBIN 7.7 g/dL (13.5-17.5); LYMPHOCYTES # (AUTO) 0.7 /CMM (0.8-4.8); MEAN CORPUSCULAR HGB CONC 34 g/dl (31.0-36.0); MEAN CORPUSCULAR VOLUME 88 fL (80-96); MONOCYTES # (AUTO) 1.1 /CMM (0.1-1.30); MONOCYTES % (AUTO) 11.3 % (2.0-12.0); NEUTROPHILS # (AUTO) 7.3 /CMM (1.8-8.9); NEUTROPHILS % (AUTO) 75.2 % (43.0-81.0); PLATELET COUNT (AUTO) 360 /CMM (150-450); WHITE BLOOD COUNT (AUTO) 9.7 K/uL (4.3-11.0)
[2020-03-06 07:05] LABS: CALCIUM, SERUM 9.4 mg/dL (8.5-10.1); CREATININE 4.7 mg/dL (0.6-1.3); POTASSIUM 3.4 mmol/L (3.5-5.1)
--- NOTE | 2020-03-06 07:30 | NUR ---
INSTALLATION AND REPAIR TECHNICIAN NOTES PT IN BED, ASLEEP, EASY TO AROUSE, ABLE TO NOD AND DO A THUMBS UP, DENIES PAIN, NOT IN DISTRESS, GT FEEDING INFUSING WELL, KEPT WARM AND COMFORTABLE IN BED.
[2020-03-06 08:00] VITALS: BP 122/59
[2020-03-06] MEDS: POTASSIUM CL. PREMIX PERIPHER. 50 ML IV SCH ×4 (08:34→12:10)
[2020-03-06] MEDS: FERROUS SULFATE UDC 300 MG/5 ML UDC GT SCH (08:39)
[2020-03-06] MEDS: CHLORHEXIDINE GLUCONATE 15 ML UDC MM SCH (08:40)
[2020-03-06] MEDS: DOCUSATE SODIUM LIQ 100 MG/10 ML UDC GT SCH ×2 (08:40→21:43)
[2020-03-06] MEDS: FAMOTIDINE (20 MG) 20 MG TABLET GT SCH (08:40)
[2020-03-06] MEDS: VIT B CMPLX 3/FA/VIT C/BIOTIN 1 TAB TABLET GT SCH (08:40)
[2020-03-06] MEDS: LACTOBACILLUS RHAMNOSUS GG 1 EACH CAP.SPRINK GT SCH ×2 (08:40→16:19)
[2020-03-06] MEDS: MINOXIDIL (2.5MG) 2.5 MG TABLET GT SCH ×2 (08:41→16:20)
[2020-03-06] MEDS: DOXAZOSIN MESYLATE (4 MG) 4 MG TABLET GT SCH ×2 (08:41→21:44)
[2020-03-06] MEDS: ISOSORBIDE DINITRATE (20MG) 20 MG TABLET GT SCH ×3 (08:42→16:19)
[2020-03-06] MEDS: LORATADINE 10 MG TABLET GT SCH (08:42)
[2020-03-06] MEDS: AMLODIPINE BESYLATE 10 MG TABLET GT SCH (08:42)
[2020-03-06] MEDS: NEOMY SULF/BACITRAC ZN/POLY 15 GM TUBE TP SCH ×2 (08:55→21:40)
[2020-03-06] MEDS: Z GUARD REMEDY 2 OZ OINT TP SCH ×2 (08:55→21:40)
--- NOTE | 2020-03-06 12:23 | NUR ---
CHERRY SORTER NOTES PT IN BED, RESTING, NOT IN PAIN OR DISTRESS, TOLERATES CURRENT GT FEEDING, DIALYSIS ONGOING, DUE MEDS GIVEN, BS CHECKED, INSULIN ADMINISTERED ORDERED.
--- NOTE | 2020-03-06 12:55 | NUR ---
HR ADVISOR NOTES BP MEDS NOT GIVEN, DIALYSIS ONGOING, BP 121/61 HR 85.
[2020-03-06] MEDS: NEPRO 1,000 ML BOTTLE GT PRN (14:50)
[2020-03-06 16:00] VITALS: BP 127/60
--- NOTE | 2020-03-06 18:36 | NUR ---
ASSOCIATE ACCOUNT MANAGER NOTES PT IN BED, AWAKE, ALERT, ABLE TO MAKE NEEDS KNOWN THROUGH HAND GESTURES, WATCHING TV, DENIES PAIN, NOT IN DISTRESS, HAD HD TODAY, HD NURSE REMOVED HD CATH AT RIGHT GROIN, TOLERATED WELL, NO BLEEDING NOTED, GT FEEDING INFUSING WELL, TURNED AND REPOSITIONED Q2 HOURS, ALL NEEDS ATTENDED.
--- NOTE | 2020-03-06 19:57 | NUR ---
CLINICAL FELLOW CLOSING NOTES RECEIVED PATIENT IN BED ALERT AND ORIENTED X 2. AFEBRILE WITH NO S/S OF DISTRESS NOTED. TRACHEOSTOMY PATENT AND INTACT CONNECTED TO MECHANICAL VENTILATION. GTUBE INTACT, FEEDING TOLERATING WELL WITH NO EPISODE OF NAUSEA/VOMITING . ASPIRATION PRECAUTION EMPHASIZED, ON CARDIAC MONITORING WITH NSR AT 80'S, CANNON CATH INTACT DRAINING WELL WITH CLOUDY YELLOW URINE 150CC OUTPUT. NO COMPLAINTS OF PAIN/DISCOMFORT REPORTED AT THIS TIME. DENIES PAIN AND DISCOMFORT, NO FACIAL GRIMACING NOTED, BED IN LOW AND LOCKED ON SEMI FOWLERS POSITION. CALL LIGHT WITH IN EASY REACH. WILL CONTINUE TO MONITOR ACCORDINGLY.
[2020-03-06 20:07] VITALS: BP 145/69
[2020-03-07 00:08] VITALS: BP 142/73
[2020-03-07] MEDS: IPRATROPIUM NEB FS 0.5 MG/2.5 ML AMPUL.NEB IH SCH ×4 (01:06→20:00)
[2020-03-07] MEDS: ALBUTEROL FS 2.5 MG/0.5 ML VIAL.NEB IH SCH ×4 (01:06→20:00)
[2020-03-07] MEDS: BLOOD SUGAR DIAGNOSTIC 1 EACH STRIP IN SCH ×4 (01:20→17:13)
[2020-03-07] MEDS: INSULIN REGULAR, HUMAN 100 UNIT/ML 3 ML VIAL SQ PRN ×4 (01:22→17:18)
[2020-03-07] MEDS: CLONIDINE HCL 0.1 MG TABLET GT SCH ×3 (04:46→20:49)
[2020-03-07] MEDS: METOCLOPRAMIDE HCL 10 MG TABLET GT SCH ×3 (04:46→20:50)
[2020-03-07] MEDS: LABETALOL HCL (100MG) 100 MG TABLET GT SCH ×3 (04:47→20:50)
[2020-03-07 06:58] LABS: CALCIUM, SERUM 9.5 mg/dL (8.5-10.1); CREATININE 3.9 mg/dL (0.6-1.3); POTASSIUM 3.8 mmol/L (3.5-5.1)
--- NOTE | 2020-03-07 07:29 | NUR ---
CORPORATE DIRECTOR OF HUMAN RESOURCES NOTES RECEIVED PATIENT IN BED ALERT AND ORIENTED X 2. AFEBRILE WITH NO S/S OF DISTRESS NOTED. TRACHEOSTOMY PATENT AND INTACT CONNECTED TO MECHANICAL VENTILATION. GTUBE INTACT, FEEDING TOLERATING WELL WITH NO EPISODE OF NAUSEA/VOMITING . ASPIRATION PRECAUTION EMPHASIZED, ON CARDIAC MONITORING WITH NSR AT 80'S, CANNON CATH INTACT DRAINING WELL WITH CLOUDY YELLOW URINE 150CC OUTPUT. NO COMPLAINTS OF PAIN/DISCOMFORT REPORTED AT THIS TIME. DENIES PAIN AND DISCOMFORT, NO FACIAL GRIMACING NOTED, BED IN LOW AND LOCKED ON SEMI FOWLERS POSITION. CALL LIGHT WITH IN EASY REACH. WILL ENDORSE TO AM NURSE FOR CONTINUITY OF CARE.
--- NOTE | 2020-03-07 07:30 | NUR ---
Tele/RN Opening Note Patient received alert, oriented to person, able to responds all stimuli. Pt does no appears pain or any discomfort, skin is warm to touch, kept clean/dry, intact midline site and g tube site. Respiratory even and unlabored with ventilator, provided suction. Keep lower position of the bed with locked wheel and elevated HOB for safety. Call light within reach, will continue to monitor.
[2020-03-07 07:48] LABS: BASOPHILS # (AUTO) 0.1 /CMM (0.0-0.2); EOSINOPHILS % (AUTO) 7.5 % (0.0-6.0); HEMATOCRIT 24 % (39-51); LYMPHOCYTES # (AUTO) 0.8 /CMM (0.8-4.8); LYMPHOCYTES % (AUTO) 8.8 % (20.0-44.0); MEAN CORPUSCULAR HGB CONC 33 g/dl (31.0-36.0); MEAN CORPUSCULAR VOLUME 89 fL (80-96); MONOCYTES # (AUTO) 1.2 /CMM (0.1-1.30); MONOCYTES % (AUTO) 13.6 % (2.0-12.0); NEUTROPHILS # (AUTO) 5.9 /CMM (1.8-8.9); NEUTROPHILS % (AUTO) 69.1 % (43.0-81.0); PLATELET COUNT (AUTO) 368 /CMM (150-450); RED BLOOD CELL COUNT(AUTO) 2.72 MIL/uL (4.5-6.0); WHITE BLOOD COUNT (AUTO) 8.6 K/uL (4.3-11.0)
[2020-03-07 08:00] VITALS: BP 148/78
[2020-03-07] MEDS: DOCUSATE SODIUM LIQ 100 MG/10 ML UDC GT SCH ×2 (09:46→20:53)
[2020-03-07] MEDS: CHLORHEXIDINE GLUCONATE 15 ML UDC MM SCH (09:46)
[2020-03-07] MEDS: FERROUS SULFATE UDC 300 MG/5 ML UDC GT SCH (09:47)
[2020-03-07] MEDS: FAMOTIDINE (20 MG) 20 MG TABLET GT SCH (09:47)
[2020-03-07] MEDS: LORATADINE 10 MG TABLET GT SCH (09:47)
[2020-03-07] MEDS: VIT B CMPLX 3/FA/VIT C/BIOTIN 1 TAB TABLET GT SCH (09:47)
[2020-03-07] MEDS: MINOXIDIL (2.5MG) 2.5 MG TABLET GT SCH ×2 (09:47→17:12)
[2020-03-07] MEDS: LACTOBACILLUS RHAMNOSUS GG 1 EACH CAP.SPRINK GT SCH ×2 (09:47→17:13)
[2020-03-07] MEDS: AMLODIPINE BESYLATE 10 MG TABLET GT SCH (09:48)
[2020-03-07] MEDS: DOXAZOSIN MESYLATE (4 MG) 4 MG TABLET GT SCH ×2 (09:48→20:49)
[2020-03-07] MEDS: Z GUARD REMEDY 2 OZ OINT TP SCH ×2 (09:49→21:13)
[2020-03-07] MEDS: ISOSORBIDE DINITRATE (20MG) 20 MG TABLET GT SCH ×3 (09:49→17:13)
[2020-03-07] MEDS: NEOMY SULF/BACITRAC ZN/POLY 15 GM TUBE TP SCH ×2 (09:49→21:13)
[2020-03-07 16:00] VITALS: BP 132/66
--- NOTE | 2020-03-07 18:50 | NUR ---
Tele/RN Closing Note Patient in bed comfortably, remains oriented to person, able to responds all stimuli. Pt does no appears pain or any discomfort, skin is warm to touch, provided skin care, kept intact midline site and g tube site. Respiratory even and unlabored with ventilator, provided suction. Keep lower position of the bed with locked wheel and elevated HOB for safety. Call light within reach, will endorse precision mechanical instrument maker.
[2020-03-07] MEDS: NEPRO 1,000 ML BOTTLE GT PRN (19:40)
--- NOTE | 2020-03-07 19:42 | NUR ---
tele safety director initial notes received report from am nurse Lul while doing pt bedside report. pt resting at this time on ventilator set up by RT as ordered. Trach portex#7 AC 16, TV 500,Fio2 40 % and PEEP 5. no signs of any acute distress noted. he also on G-tube feeding Nepro at 45ml/hr no aspiration noted. kept him on semi fowlers position with side rails x3 up on [employer] for pt comfort.Kept him warm and comfortable at all times. will continue monitoring.
[2020-03-07 20:00] VITALS: BP 125/67
[2020-03-08] MEDS: BLOOD SUGAR DIAGNOSTIC 1 EACH STRIP IN SCH ×4 (00:37→18:05)
[2020-03-08] MEDS: INSULIN REGULAR, HUMAN 100 UNIT/ML 3 ML VIAL SQ PRN ×2 (00:47→06:14)
[2020-03-08 00:53] VITALS: BP 150/72
--- NOTE | 2020-03-08 01:08 | NUR ---
tele teacher citizenship notes blood sugar checked done 186, 3 units of insulin given lemuel SQ on diff site as ordered witness by another nurse. no signs of hyper glycemia noted. will continue monitoring. tele SR per monitor.
[2020-03-08] MEDS: IPRATROPIUM NEB FS 0.5 MG/2.5 ML AMPUL.NEB IH SCH ×3 (01:10→13:59)
[2020-03-08] MEDS: ALBUTEROL FS 2.5 MG/0.5 ML VIAL.NEB IH SCH ×3 (01:11→13:59)
[2020-03-08] MEDS: LABETALOL HCL (100MG) 100 MG TABLET GT SCH ×2 (05:13→13:13)
[2020-03-08] MEDS: CLONIDINE HCL 0.1 MG TABLET GT SCH ×2 (05:13→13:11)
[2020-03-08] MEDS: METOCLOPRAMIDE HCL 10 MG TABLET GT SCH ×2 (05:14→13:12)
[2020-03-08 06:00] VITALS: BP 134/69
--- NOTE | 2020-03-08 06:53 | NUR ---
tele press and blow machine tender closing notes pt resting at this time after morning care done as well as his wound tx. No signs of any acute distress noted. Stable lemuel the night . No aspiration noted and tolerated his g-tube feeding well. Sinus Rhythm on tele monitor heart rate 83. all due meds given and all needs met. kept him warm and comfortable at all times. On sitting position with side rails x3 up and bed in lock in position, will endorse to am nurse for continuity of care.
[2020-03-08 07:01] LABS: BASOPHILS # (AUTO) 0.1 /CMM (0.0-0.2); BASOPHILS % (AUTO) 0.7 % (0.0-2.0); EOSINOPHILS % (AUTO) 6.6 % (0.0-6.0); HEMATOCRIT 24 % (39-51); HEMOGLOBIN 8.1 g/dL (13.5-17.5); LYMPHOCYTES # (AUTO) 0.8 /CMM (0.8-4.8); MEAN CORPUSCULAR HGB CONC 34 g/dl (31.0-36.0); MEAN CORPUSCULAR VOLUME 88 fL (80-96); MONOCYTES # (AUTO) 1.2 /CMM (0.1-1.30); MONOCYTES % (AUTO) 12.8 % (2.0-12.0); NEUTROPHILS # (AUTO) 6.8 /CMM (1.8-8.9); NEUTROPHILS % (AUTO) 71.9 % (43.0-81.0); PLATELET COUNT (AUTO) 381 /CMM (150-450); RED BLOOD CELL COUNT(AUTO) 2.72 MIL/uL (4.5-6.0); WHITE BLOOD COUNT (AUTO) 9.5 K/uL (4.3-11.0)
[2020-03-08 07:10] LABS: CALCIUM, SERUM 9.5 mg/dL (8.5-10.1); CREATININE 4.2 mg/dL (0.6-1.3); POTASSIUM 3.7 mmol/L (3.5-5.1)
[2020-03-08 08:00] VITALS: BP 158/84
[2020-03-08] MEDS: CHLORHEXIDINE GLUCONATE 15 ML UDC MM SCH (08:52)
[2020-03-08] MEDS: DOCUSATE SODIUM LIQ 100 MG/10 ML UDC GT SCH (08:52)
[2020-03-08] MEDS: LACTOBACILLUS RHAMNOSUS GG 1 EACH CAP.SPRINK GT SCH ×2 (08:53→16:50)
[2020-03-08] MEDS: FERROUS SULFATE UDC 300 MG/5 ML UDC GT SCH (08:53)
[2020-03-08] MEDS: LORATADINE 10 MG TABLET GT SCH (08:53)
[2020-03-08] MEDS: FAMOTIDINE (20 MG) 20 MG TABLET GT SCH (08:53)
[2020-03-08] MEDS: AMLODIPINE BESYLATE 10 MG TABLET GT SCH (08:53)
[2020-03-08] MEDS: DOXAZOSIN MESYLATE (4 MG) 4 MG TABLET GT SCH (08:54)
[2020-03-08] MEDS: ISOSORBIDE DINITRATE (20MG) 20 MG TABLET GT SCH ×3 (08:54→16:50)
[2020-03-08] MEDS: MINOXIDIL (2.5MG) 2.5 MG TABLET GT SCH ×2 (08:55→16:50)
[2020-03-08] MEDS: NEOMY SULF/BACITRAC ZN/POLY 15 GM TUBE TP SCH (08:55)
[2020-03-08] MEDS: Z GUARD REMEDY 2 OZ OINT TP SCH (08:55)
[2020-03-08] MEDS: VIT B CMPLX 3/FA/VIT C/BIOTIN 1 TAB TABLET GT SCH (08:55)
[2020-03-08 16:00] VITALS: BP 153/82
[2020-03-08 16:50] VITALS: BP 152/80
--- NOTE | 2020-03-08 19:47 | NUR ---
SERVICES MGR NOTES PATIENT DISCHARGED- HANDLE BY AM SHIFT.
== END 2020-03-08 19:41 | DRG 130 ==
LOC: ER 17:02 → TELE1 20:55 → ICU 02-12 12:12 → TELE-TD 02-23 07:24 → TELE1 02-24 08:17 → TELE 03-04 19:59
PROVIDERS: ADMIT Internal Medicine; ATTEND Family Medicine
PROC: B518YZA Fluoroscopy of Superior Vena Cava using Other Contrast, Guidance (ICD-10-PCS; principal; 2020-02-10)
PROC: 0JH63XZ Insertion of Tunneled Vascular Access Device into Chest Subcutaneous Tissue and Fascia, Percutaneous Approach (ICD-10-PCS; principal; 2020-02-10)
PROC: 5A1955Z Respiratory Ventilation, Greater than 96 Consecutive Hours (ICD-10-PCS; principal; 2020-02-10)
PROC: 02HV33Z Insertion of Infusion Device into Superior Vena Cava, Percutaneous Approach (ICD-10-PCS; principal; 2020-02-10)
PROC: 06HY33Z Insertion of Infusion Device into Lower Vein, Percutaneous Approach (ICD-10-PCS; 2020-02-12)
PROC: 30233N1 Transfusion of Nonautologous Red Blood Cells into Peripheral Vein, Percutaneous Approach (ICD-10-PCS; 2020-02-16)
PROC: 5A1D70Z Performance of Urinary Filtration, Intermittent, Less than 6 Hours Per Day (ICD-10-PCS; 2020-02-18)
PROC: 0W993ZZ Drainage of Right Pleural Cavity, Percutaneous Approach (ICD-10-PCS; 2020-02-22)
PROC: 07DR3ZX Extraction of Iliac Bone Marrow, Percutaneous Approach, Diagnostic (ICD-10-PCS; 2020-02-25)
DX: J15.1 Pneumonia due to Pseudomonas (principal); N17.0 Acute kidney failure with tubular necrosis; I21.A1 Myocardial infarction type 2; E43 Unspecified severe protein-calorie malnutrition; G93.41 Metabolic encephalopathy; J96.21 Acute and chronic respiratory failure with hypoxia; J90 Pleural effusion, not elsewhere classified; F33.2 Major depressive disorder, recurrent severe without psychotic features; D68.69 Other thrombophilia; E11.22 Type 2 diabetes mellitus with diabetic chronic kidney disease; E83.52 Hypercalcemia; G40.909 Epilepsy, unspecified, not intractable, without status epilepticus; E87.0 Hyperosmolality and hypernatremia; E87.5 Hyperkalemia; F32.9 Major depressive disorder, single episode, unspecified; I12.9 Hypertensive chronic kidney disease with stage 1 through stage 4 chronic kidney disease, or unspecified chronic kidney disease; E11.65 Type 2 diabetes mellitus with hyperglycemia; D63.1 Anemia in chronic kidney disease; B37.49 Other urogenital candidiasis; Z93.0 Tracheostomy status; Z87.440 Personal history of urinary (tract) infections; I69.351 Hemiplegia and hemiparesis following cerebral infarction affecting right dominant side; E88.09 Other disorders of plasma-protein metabolism, not elsewhere classified; Z68.28 Body mass index [BMI] 28.0-28.9, adult; Z87.820 Personal history of traumatic brain injury; N17.9 Acute kidney failure, unspecified; D50.9 Iron deficiency anemia, unspecified; Z74.01 Bed confinement status; S80.812A Abrasion, left lower leg, initial encounter; S80.811A Abrasion, right lower leg, initial encounter; X58.XXXA Exposure to other specified factors, initial encounter; Y93.9 Activity, unspecified; Y92.129 Unspecified place in nursing home as the place of occurrence of the external cause; Z93.1 Gastrostomy status; F41.9 Anxiety disorder, unspecified; F05 Delirium due to known physiological condition; Z79.4 Long term (current) use of insulin; E85.9 Amyloidosis, unspecified; J96.22 Acute and chronic respiratory failure with hypercapnia; Z99.11 Dependence on respirator [ventilator] status; Z87.01 Personal history of pneumonia (recurrent); E86.1 Hypovolemia
CPT/HCPCS: 31720; 36410; 36415; 36600; 71045-TC; 76770-TC; 80048-TC; 80076-TC; 80202-TC; 81000-TC; 82803-TC; 82962-TC; 83605-TC; 83735-TC; 83880; 84100-TC; 84155-TC; 84484-TC; 85025-TC; 85610-TC; 85730-TC; 86704; 86706; 86850-TC; 86921-TC; 87040-TC; 87070-TC; 87075-TC; 87081-TC; 87086-TC; 87102-TC; 87186-TC; 87340; 88112-TC; 88305-TC; 88312-TC; 89051-TC; 90935-TC; 94003-TC; 94760-TC; 94762-TC; 97112-TC; 97530-TC; 99082-TC; A4216; A4217; A4623; A6403; A7526; C1750; G0378; J0692; J0885; J1644; J1815; J2060; J2250; J2270; J2543; J2704; J3010; J3370; J3480; J3490; J7030; J7042; J7050; J7060; J8597; P9016-BL; Q0162